=== PATIENT | male | born 1950 | race Caucasian/White ===

== ENCOUNTER → 2018-04-15 | Outpatient (CLI) | payer MEDICARE | END | disposition home or self-care (01) | LOC: ECHO 08:54 | DX: R06.02 Shortness of breath (principal); R07.9 Chest pain, unspecified; E66.9 Obesity, unspecified; I12.9 Hypertensive chronic kidney disease with stage 1 through stage 4 chronic kidney disease, or unspecified chronic kidney disease; E11.22 Type 2 diabetes mellitus with diabetic chronic kidney disease; N18.3 Chronic kidney disease, stage 3 (moderate); E78.00 Pure hypercholesterolemia, unspecified; E78.5 Hyperlipidemia, unspecified | CPT/HCPCS: 93306 ==

== ENCOUNTER 2019-09-20 02:40 | Emergency (ER) | payer MEDICARE ==
[~2019-09-20] VITALS: Ht 188 cm; Wt 207.7 kg
[~2019-09-20 02:40] MED LIST: ALLO100T PO; AMOX500C PO; ASCO100020 PO; ASPI325T8 PO; ATOR20TA58 PO; Amoxicillin/Potassium Clav PO; CHOL100017 PO; CINN500C2 PO; CLOP75TA PO; DOXY50CA PO; DOXY75TA PO; ERGO500027 PO; FAMO20TA5 PO; FERR159T3 PO; FERR325T14 PO; FEXO180T16 PO; FURO40TA4 PO; GLUC100018 PO; Hydrocodone/Acetaminophen PO; ICOS1CAP PO; ISOS30TA4 PO; LIDO700A21 TD; LISI-130 PO; LISI-334 PO; LUBI24CA7 PO; LUBI8CAP4 PO; MAGN400T22 PO; METF10007 PO; METO-269 PO; MV,M1TAB4 PO; OXYC1TAB22 PO; PANT40TA77 PO; POTA20TA12 PO; POTA99TA4 PO; REPA1TAB6 PO; SIME80TA PO; SULF1TAB24 PO; TIZA4TAB2 PO; TRAM50TA PO; [UNRECOGNIZED DRUG - CODE] PO; [UNRECOGNIZED DRUG - OTHER]
[2019-09-20] MEDS ORDERED: ONDANSETRON PF 4 MG/2 ML VIAL. IVP ONE (03:15)
[2019-09-20] MEDS ORDERED: MORPHINE SULFATE 4 MG/ML VIAL. IV ONE ×2 (03:15→04:45)
--- NOTE | 2019-09-20 03:39 | PHYS DOC ---
Past Medical History Past Medical History: CAD, Diabetes-Type II, GERD, High Cholesterol, Heart Disease, Hypertension, [place], Other Additional Past Medical Histor: CHRONIC BACK PAIN, constipation Past Surgical History: Cholecystectomy, Lumbar Laminectomy Additional Past Surgical Histo: cardiac stents 12/15, 4 back surgeries, 1 neck surgery Alcohol Use: None Drug Use: None Adult General Chief Complaint Chief Complaint: ABDOMINAL PAIN HPI HPI Patient is a 69 year old male with history of CAD, hypertension presents with left upper quadrant abdominal pain. Pain is intermittent and worse with palpation. Patient has had similar episodes in the past which previously been attributed to abdominal muscle strain. Patient has been treating with muscle relaxants without relief. Pain is worse with palpation and movement. Pain is rated as moderate. Patient also reports chronic back pain. No falls or injuries. No fevers chills or sweats. No nausea or vomiting. No other acute symptoms or complaints.[] Review of Systems Review of Systems Review symptoms as per history of present illness. All other review symptoms are negative. All other systems were reviewed and found to be within normal limits, except as documented in this note. Current Medications Current Medications Current Medications Medications (Trade) Dose Ordered Sig/Micah Start Time Stop Time Status Last Admin Dose Admin Morphine Sulfate (Morphine Sulfate) 4 mg 1X ONCE 09/20/19 04:45 09/20/19 04:46 DC 09/20/19 05:08 4 MG Ondansetron HCl (Zofran) 4 mg 1X ONCE 09/20/19 03:15 09/20/19 03:18 DC 09/20/19 03:24 4 MG Sodium Chloride 1,000 ml @ 1,000 mls/hr 1X ONCE 09/20/19 04:45 09/20/19 05:44 09/20/19 05:08 1,000 MLS/HR Allergies Allergies Allergies Coded Allergies Type Severity Reaction Last Updated Verified No Known Drug Allergies 06/11/16 No Physical Exam Physical Exam Constitutional: Well developed, well nourished, no acute distress. [] HENT: Normocephalic, atraumatic, bilateral external ears normal, nose normal. [] Eyes: PERRLA, EOMI, conjunctiva normal, no discharge. [] Neck: Normal range of motion. [] Cardiovascular:Heart rate regular rhythm, no murmur [] Lungs & Thorax: Bilateral breath sounds clear to auscultation [] Abdomen: Bowel sounds normal, soft, habitus limiting exam, focal area of tenderness left upper quadrant, no palpable hernia. [] Extremities: No tenderness or peripheral edema. [] Neurologic: Alert and oriented X 3, normal motor function, normal sensory f unction, no focal deficits noted. [] Psychologic: Affect normal, judgement normal, mood normal. [] Current Patient Data Vital Signs Vital Signs Date Time Temp Pulse Resp B/P (MAP) Pulse Ox O2 Delivery O2 Flow Rate FiO2 09/20/19 05:08 20 92 Room Air 09/20/19 02:44 99.2 85 185/82 (116) 99.2 Lab Values Laboratory Tests Test 09/20/19 02:55 09/20/19 04:45 White Blood Count 12.6 x10^3/uL (4.0-11.0) H Red Blood Count 4.45 x10^6/uL (4.30-5.70) Hemoglobin 13.8 g/dL (13.0-17.5) Hematocrit 42.6 % (39.0-53.0) Mean Corpuscular Volume 96 fL (79-100) Mean Corpuscular Hemoglobin 31 pg (25-35) Mean Corpuscular Hemoglobin Concent 32 g/dL (31-37) Red Cell Distribution Width 15.2 % (11.5-14.5) H Platelet Count 175 x10^3/uL (140-400) Neutrophils (%) (Auto) 79 % (31-73) H Lymphocytes (%) (Auto) 11 % (24-48) L Monocytes (%) (Auto) 9 % (0-9) Eosinophils (%) (Auto) 0 % (0-3) Basophils (%) (Auto) 0 % (0-3) Neutrophils # (Auto) 10.0 x10^3/uL (1.8-7.7) H Lymphocytes # (Auto) 1.4 x10^3/uL (1.0-4.8) Monocytes # (Auto) 1.1 x10^3/uL (0.0-1.1) Eosinophils # (Auto) 0.0 x10^3/uL (0.0-0.7) Basophils # (Auto) 0.0 x10^3/uL (0.0-0.2) Sodium Level 143 mmol/L (136-145) Potassium Level 3.9 mmol/L (3.5-5.1) Chloride Level 101 mmol/L (98-107) Carbon Dioxide Level 24 mmol/L (21-32) Anion Gap 18 (6-14) H Blood Urea Nitrogen 29 mg/dL (8-26) H Creatinine 1.7 mg/dL (0.7-1.3) H Estimated GFR (Cockcroft-Gault) 40.4 BUN/Creatinine Ratio 17 (6-20) Glucose Level 158 mg/dL (70-99) H Calcium Level 9.5 mg/dL (8.5-10.1) Total Bilirubin 0.6 mg/dL (0.2-1.0) Aspartate Amino Transferase (AST) 29 U/L (15-37) Alanine Aminotransferase (ALT) 43 U/L (16-63) Alkaline Phosphatase 78 U/L (46-116) Total Protein 7.7 g/dL (6.4-8.2) Albumin 3.7 g/dL (3.4-5.0) Albumin/Globulin Ratio 0.9 (1.0-1.7) L Lipase 70 U/L (73-393) L Lactic Acid Level 2.8 mmol/L (0.4-2.0) H Laboratory Tests 09/20/19 02:55 Laboratory Tests 09/20/19 02:55 EKG EKG [] Radiology/Procedures Radiology/Procedures [CT abdomen pelvis: No acute findings per radiology report] Course & Med Decision Making Course & Med Decision Making Pertinent Labs and Imaging studies reviewed. (See chart for details) [Left upper quadrant pain without acute findings on CT. Pain was improved. Patient instructed to follow-up with PCP for reevaluation and further management.] Dragon Disclaimer Dragon Disclaimer This electronic medical record was generated, in whole or in part, using a voice recognition dictation system. Departure Departure Impression: Primary Impression: Abdominal pain Additional Impression: Back pain Disposition: 01 HOME, SELF-CARE Condition: STABLE Referrals: Jessica WHITT MD (PCP) Patient Instructions: Abdominal Pain (Nonspecific), Back Pain, Adult, [id number] Additional Instructions: Please continue home medications and follow-up with your PCP for review of ER labs and imaging and further management of abdominal and back pain. Problem Qualifiers JA JACKSON DO Sep 20, 2019 03:39
[2019-09-20 03:40] LABS: BASO % 0 % (0-3); EOS % 0 % (0-3); HEMATOCRIT 42.6 % (39.0-53.0); HEMOGLOBIN 13.8 g/dL (13.0-17.5); LYMPH # 1.4 x10^3/uL (1.0-4.8); LYMPH % 11 % (24-48); MEAN CORPUSCULAR HEMOGLOBIN 31 pg (25-35); MEAN CORPUSCULAR HGB CONC 32 g/dL (31-37); MEAN CORPUSCULAR VOLUME 96 fL (79-100); MONO # 1.1 x10^3/uL (0.0-1.1); MONO % 9 % (0-9); NEUT % 79 % (31-73); PLATELET COUNT 175 x10^3/uL (140-400); RED BLOOD COUNT 4.45 x10^6/uL (4.30-5.70); RED CELL DISTRIBUTION WIDTH 15.2 % (11.5-14.5); WHITE BLOOD COUNT 12.6 x10^3/uL (4.0-11.0)
[2019-09-20 03:45] LABS: CALCIUM 9.5 mg/dL (8.5-10.1); CREATININE 1.7 mg/dL (0.7-1.3); GFR 40.4; POTASSIUM 3.9 mmol/L (3.5-5.1)
[2019-09-20 03:51] LABS: ALBUMIN 3.7 g/dL (3.4-5.0); ALBUMIN/GLOBULIN RATIO 0.9 (1.0-1.7); TOTAL BILIRUBIN 0.6 mg/dL (0.2-1.0); TOTAL PROTEIN 7.7 g/dL (6.4-8.2)
[2019-09-20] MEDS ORDERED: IV NORMAL SALINE 1000ML BAG 1,000 ML IV ONE (04:45)
--- NOTE | 2019-09-20 05:08 | RAD ---
PQRS Compliance statement: One or more of the following individualized dose reduction techniques were utilized for this examination: 1. Automated exposure control. 2. Adjustment of the mA and/or kV according to patient size. 3. Use of iterative reconstruction technique. Indication: Left upper quadrant abdominal pain. TECHNIQUE: CT abdomen and pelvis without IV contrast with multiplanar reformats. COMPARISON: None FINDINGS: Limited evaluation of solid abdominal and pelvic organs due to lack of IV contrast. Heart is normal in size. No pericardial or pleural effusion. Clear lung bases. Hepatic steatosis. Spleen is unenlarged. Status post cholecystectomy. Noncontrast appearance of the pancreas and adrenals within normal limits. No nephrolithiasis or hydronephrosis. No enlarged retroperitoneal or pelvic adenopathy. No free pelvic fluid or ascites. The prostate and seminal vesicles show no large mass. No bowel obstruction. Urinary bladder demonstrates no radiopaque stone. No pneumoperitoneum. Focal small bowel containing right parasagittal abdominal wall hernia with defect measuring 5.2 cm. No suspicious bony lesion. IMPRESSION: Limited evaluation of solid abdominal and pelvic organs due to lack of IV contrast. Hepatic steatosis. No nephrolithiasis or hydronephrosis. No bowel obstruction. Electronically signed by: Davin Arvizu DO (09/20/2019 5:05 AM) [facility]
[2019-09-20 05:36] VITALS: BP 137/90
== END 2019-09-20 06:00 | disposition home or self-care (01) ==
LOC: ER 02:40
DX: R10.12 Left upper quadrant pain (principal); G89.29 Other chronic pain; M54.9 Dorsalgia, unspecified; K21.9 Gastro-esophageal reflux disease without esophagitis; I11.9 Hypertensive heart disease without heart failure; E11.9 Type 2 diabetes mellitus without complications; E78.00 Pure hypercholesterolemia, unspecified; I25.10 Atherosclerotic heart disease of native coronary artery without angina pectoris; I25.2 Old myocardial infarction; Z90.49 Acquired absence of other specified parts of digestive tract; Z98.890 Other specified postprocedural states; Z95.5 Presence of coronary angioplasty implant and graft
CPT/HCPCS: 36415; 74176; 80053; 83605; 83690; 85025; 96374; 96375; 96376; 99285; J2270; J2405; J7030

== ENCOUNTER 2020-05-09 16:26 | Inpatient (IN) | payer MEDICARE ==
[~2020-05-09] VITALS: Ht 185.4 cm; Wt 183.1 kg
[2020-05-09 10:35] VITALS: BP 151/55
[~2020-05-09 16:26] MED LIST changes: +ACET325T9 PO; +AMOX1TAB58 PO; +ASPI-886 PO; +DOCU-153 PO; +LACT1CAP19 PO
[2020-05-09 16:58] LABS: BASO % 0 % (0-3); EOS % 0 % (0-3); HEMATOCRIT 37.3 % (39.0-53.0); HEMOGLOBIN 12.8 g/dL (13.0-17.5); LYMPH # 0.7 x10^3/uL (1.0-4.8); LYMPH % 7 % (24-48); MEAN CORPUSCULAR HEMOGLOBIN 32 pg (25-35); MEAN CORPUSCULAR HGB CONC 34 g/dL (31-37); MEAN CORPUSCULAR VOLUME 94 fL (79-100); MONO # 1.1 x10^3/uL (0.0-1.1); MONO % 10 % (0-9); NEUT # 8.6 x10^3/uL (1.8-7.7); NEUT % 82 % (31-73); PLATELET COUNT 143 x10^3/uL (140-400); RED BLOOD COUNT 3.97 x10^6/uL (4.30-5.70); RED CELL DISTRIBUTION WIDTH 15.6 % (11.5-14.5); WHITE BLOOD COUNT 10.4 x10^3/uL (4.0-11.0)
[2020-05-09 17:06] LABS: BILIRUBIN,URINE NEGATIVE (NEG); CLARITY,URINE CLOUDY; COLOR,URINE YELLOW; NITRITE,URINE NEGATIVE (NEG); PH,URINE 5.5 (<5.0-8.0); PROTEIN,URINE NEGATIVE (NEG-TRACE); UROBILINOGEN,URINE 0.2 mg/dL (0.2 mg/dL)
[2020-05-09 17:09] LABS: BACTERIA,URINE MANY /HPF (0-FEW); WBC,URINE >40 /HPF (0-4)
[2020-05-09 17:13] LABS: CALCIUM 8.7 mg/dL (8.5-10.1); CREATININE 2.3 mg/dL (0.7-1.3); GFR 28.5; POTASSIUM 4.2 mmol/L (3.5-5.1)
[2020-05-09 17:19] LABS: ALBUMIN 3.1 g/dL (3.4-5.0); ALBUMIN/GLOBULIN RATIO 0.9 (1.0-1.7); MAGNESIUM 1.7 mg/dL (1.8-2.4); TOTAL BILIRUBIN 0.5 mg/dL (0.2-1.0); TOTAL PROTEIN 6.7 g/dL (6.4-8.2)
--- NOTE | 2020-05-09 17:20 | PHYS DOC ---
Past Medical History Past Medical History: CAD, Diabetes-Type II, GERD, High Cholesterol, Heart Disease, Hypertension, [place], Other Additional Past Medical Histor: CHRONIC BACK PAIN, constipation Past Surgical History: Cholecystectomy, Lumbar Laminectomy Additional Past Surgical Histo: cardiac stents 12/15, 4 back surgeries, 1 neck surgery Smoking Status: Never Smoker Alcohol Use: None Drug Use: None General Adult EDM: Chief Complaint: WEAKNESS/GENERALIZED HPI: HPI: Patient is a 69 year old male who presents with generalized weakness for 2 days. Patient reports that he is being treated for urinary tract infection but cannot remember the antibiotic that he is taking. Patient reports that today he was trying to get out of bed and ambulate with his walker when he fell due to his weakness. He denies hitting his head or any loss of consciousness. Patient is reporting dysuria and frequency but reports that he does have urinary frequency due to his Lasix. Patient is also reporting a cough, increasing shortness of breath worse with exertion, nausea and vomiting, fever. Patient denies any abdominal pain, dizziness, focal deficit, or chest pain. He reports that he has chronic diarrhea. Review of Systems: Review of Systems: Constitutional: See HPI [] Respiratory: See HPI [] Cardiovascular: Denies chest pain. [] GI: See HPI [] : See HPI [] Musculoskeletal: Denies back pain or joint pain. [] Integument: Denies rash. [] Neurologic: See HPI. [] Psychiatric: Denies depression or anxiety. [] Heart Score: Risk Factors: Risk Factors: DM, Current or recent (<one month) smoker, HTN, HLP, family history of CAD, obesity. Risk Scores: Score 0 - 3: 2.5% MACE over next 6 weeks - Discharge Home Score 4 - 6: 20.3% MACE over next 6 weeks - Admit for Clinical Observation Score 7 - 10: 72.7% MACE over next 6 weeks - Early Invasive Strategies Allergies: Allergies: Allergies Coded Allergies Type Severity Reaction Last Updated Verified No Known Drug Allergies 06/11/16 No Physical Exam: PE: Constitutional: Well developed, well nourished, no acute distress, non-toxic appearance, obese. [] HENT: Normocephalic, atraumatic, bilateral external ears normal, oropharynx moist, nose normal. [] Eyes: PERRLA, EOMI, conjunctiva normal, no discharge. [] Neck: Normal range of motion, no stridor. [] Cardiovascular:Heart rate regular rhythm, no murmur [] Lungs & Thorax: Bilateral breath sounds clear to auscultation [] Abdomen: Bowel sounds normal, soft, no tenderness, no masses, no pulsatile masses. [] Skin: Warm, dry; patient does have excoriation noted to his groin [] Back: No tenderness; no cervical spinal tenderness. [] Extremities: No tenderness, no cyanosis, no clubbing, ROM intact; 2+ edema noted to bilateral lower extremities [] Neurologic: Alert and oriented X 3, no focal deficits noted. [] Psychologic: Affect normal, judgement normal, mood normal. [] Current Patient Data: Labs: Laboratory Tests Test 05/09/20 16:35 05/09/20 16:40 White Blood Count 10.4 x10^3/uL (4.0-11.0) Red Blood Count 3.97 x10^6/uL (4.30-5.70) L Hemoglobin 12.8 g/dL (13.0-17.5) L Hematocrit 37.3 % (39.0-53.0) L Mean Corpuscular Volume 94 fL (79-100) Mean Corpuscular Hemoglobin 32 pg (25-35) Mean Corpuscular Hemoglobin Concent 34 g/dL (31-37) Red Cell Distribution Width 15.6 % (11.5-14.5) H Platelet Count 143 x10^3/uL (140-400) Neutrophils (%) (Auto) 82 % (31-73) H Lymphocytes (%) (Auto) 7 % (24-48) L Monocytes (%) (Auto) 10 % (0-9) H Eosinophils (%) (Auto) 0 % (0-3) Basophils (%) (Auto) 0 % (0-3) Neutrophils # (Auto) 8.6 x10^3/uL (1.8-7.7) H Lymphocytes # (Auto) 0.7 x10^3/uL (1.0-4.8) L Monocytes # (Auto) 1.1 x10^3/uL (0.0-1.1) Eosinophils # (Auto) 0.0 x10^3/uL (0.0-0.7) Basophils # (Auto) 0.0 x10^3/uL (0.0-0.2) Urine Collection Type Unknown Urine Color Yellow Urine Clarity Cloudy Urine pH 5.5 (<5.0-8.0) Urine Specific Prewitt 1.010 (1.000-1.030) Urine Protein Negative mg/dL (NEG-TRACE) Urine Glucose (UA) Negative mg/dL (NEG) Urine Ketones (Stick) Negative mg/dL (NEG) Urine Blood Moderate (NEG) Urine Nitrite Negative (NEG) Urine Bilirubin Negative (NEG) Urine Urobilinogen Dipstick 0.2 mg/dL (0.2 mg/dL) Urine Leukocyte Esterase Large (NEG) Urine RBC 1-2 /HPF (0-2) Urine WBC >40 /HPF (0-4) Urine Bacteria Many /HPF (0-FEW) Laboratory Tests 05/09/20 16:35 Vital Signs: Vital Signs Date Time Temp Pulse Resp B/P (MAP) Pulse Ox O2 Delivery O2 Flow Rate FiO2 05/09/20 16:26 100.2 84 21 136/67 (90) 96 Room Air 100.2 EKG: EKG: [] Radiology/Procedures: Radiology/Procedures: PROCEDURE: CHEST AP ONLY Examination: CHEST AP ONLY History: Reason: cough, soa / Spl. Instructions: / History: Comparison: 02/20/2020. Findings: AP portable upright frontal view of the chest was obtained. Right costophrenic angle is not fully included. The cardiomediastinal silhouette is normal. Lungs are clear. There is no pneumothorax. No significant pleural effusion is appreciated. No acute bone abnormality. IMPRESSION: No acute cardiopulmonary process.[] Course & Med Decision Making: Course & Med Decision Making Pertinent Labs and Imaging studies reviewed. (See chart for details) Patient is a 69-year-old male coming in for multiple complaints. Patient reports that he feels generally weak, has dysuria and urinary frequency, cough, fever, shortness of air with exertion. Work-up will include UA, CBC, CMP, magnesium, chest x-ray, lactic acid, BNP. 1825-spoke with Dr. Baldwin who is the admitting physician, and care was as sumed following discussion of patient. Will admit patient for SONIYA, UTI, fever Patient's vital signs stable. Patient remains appears nontoxic, respirations even and unlabored. Patient will be admitted to the med/tele floor. Patient's case and plan of care also discussed with Dr. Walker [] Arsh Disclaimer: Arsh Disclaimer: This electronic medical record was generated, in whole or in part, using a voice recognition dictation system. Departure Departure Impression: Primary Impression: Urinary tract infection Qualified Codes: N39.0 - Urinary tract infection, site not specified Additional Impression: SONIYA (acute kidney injury) Disposition: ADMITTED INPATIENT Admitting Physician: MARCIE ([facility]) Condition: STABLE Referrals: Jessica WHITT MD (PCP) Justicifation of Admission Dx: Justifications for Admission: Justification of Admission Dx: Yes JODY FLORES RESOURCE DEVELOPMENT DIRECTOR May 09, 2020 17:20
[2020-05-09] MEDS ORDERED: LIDOCAINE (700MG/PATCH) PATCH. ONE (17:58)
[2020-05-09] MEDS: LIDOCAINE (700MG/PATCH) PATCH. TD SCH (18:03)
[2020-05-09] MEDS ORDERED: ACETAMINOPHEN 500 MG TABLET PO ONE (18:15)
[2020-05-09] MEDS ORDERED: cefTRIAXone IV Push 1 GM VIAL. IVP ONE (18:15)
[2020-05-09] MEDS ORDERED: HYDROcodone/APAP 5/325MG 1 TAB TABLET PO ONE (21:00)
[2020-05-09 23:14] VITALS: BP 151/55
[2020-05-09] MEDS ORDERED: POTA20TA4 PO (23:38)
[2020-05-09] MEDS ORDERED: TAMS0.4C97 PO (23:38)
[2020-05-09] MEDS ORDERED: POTA99TA3 PO (23:38)
[2020-05-09] MEDS ORDERED: LINZESS145 MCG PO (23:38)
[2020-05-09] MEDS ORDERED: FERR-36 PO (23:38)
[2020-05-09] MEDS ORDERED: FLUT16SP NS (23:38)
[2020-05-09] MEDS ORDERED: LISI-130 PO (23:38)
[2020-05-09] MEDS ORDERED: MULT-138 PO (23:38)
[2020-05-09] MEDS ORDERED: ASCO500C PO (23:38)
[2020-05-09] MEDS ORDERED: FEXO180T16 PO (23:38)
[2020-05-09] MEDS ORDERED: METF10007 PO (23:38)
[2020-05-09] MEDS ORDERED: ALLO300T PO (23:38)
[2020-05-10] MEDS: HYDROcodone/APAP 5/325MG 1 TAB TABLET PO PRN ×4 (00:34→13:42)
[2020-05-10 02:44] VITALS: BP 102/57
[2020-05-10 07:00] VITALS: BP 118/58
--- NOTE | 2020-05-10 08:46 | PDOC1 ---
History and Physical Date of Admission Date of Admission DATE: 05/10/20 TIME: 08:40 Identification/Chief Complaint Chief Complaint Weakness Source Source: Patient History of Present Illness History of Present Illness Mr Drake is a 69 yo M w/ PMHx CAD s/p stents, DM2, GERD, HLD, HTN, chronic back pain, constipation, and recent diagnosis of BPH who presents with generalized weakness for 2 days. Patient reports that he is being treated for urinary tract infection but when he and his reduce his medications they are actually finasteride and tamsulosin. Patient reports that he was trying to get out of bed and ambulate with his walker when he fell due to his weakness on 05/09/2020, he thinks his left SI joint is in some of the worst pain of his life. He denies hitting his head or any loss of consciousness. Patient is reporting dysuria and frequency but reports that he does have urinary frequency due to his Lasix. He also notes some right lower quadrant abdominal pain and has red inflamed pannus. Patient is also reporting a cough, increasing shortness of breath worse with exertion, nausea and vomiting, fever, but has been afebrile here and chest x-ray was clear. Patient denies any abdominal pain, dizziness, focal deficit, or chest pain. He reports that he has chronic diarrhea. He is unable to stand with me Labs significant for WBC 10.4 Hb 13.8 BUN 47 creatinine 2.3 UA positive for blood and leukocyte esterase lactate 2.6 mag 1.7 albumin 3.1. Admitted for further care Past Medical History Cardiovascular: CAD, HTN, PA, Hyperlipidemia, Other Pulmonary: Asthma, Other CENTRAL NERVOUS SYSTEM: Periperal neuropathy GI: GERD, Irritable bowel disease Heme/Onc: Anemia NOS Hepatobiliary: No pertinent hx Psych: Addictions Musculoskeletal: low back pain, Osteoarthritis, Other Rheumatologic: No pertinent hx Infectious disease: No pertinent hx Renal/: UTI Endocrine: Diabetes Past Surgical History Past Surgical History: Cholecystectomy, Tonsillectomy, Other Family History Family History: Coronary Artery Disease, High Cholestrol Social History Smoke: No ALCOHOL: none Drugs: None Current Problem List Problem List Problems Medical Problems: (1) SONIYA (acute kidney injury) Status: Acute (2) Urinary tract infection Status: Acute Current Medications Current Medications Current Medications Lidocaine (Lidoderm) 1 patch DAILY TD Last administered on 05/09/20at 18:03; Start 05/10/20 at 09:00 Lidocaine (Lidoderm) 1 patch STK-MED ONCE .ROUTE ; Start 05/09/20 at 17:58; Stop 05/09/20 at 17:58; Status DC Acetaminophen (Tylenol) 1,000 mg 1X ONCE PO Last administered on 05/09/20at 18:28; Start 05/09/20 at 18:15; Stop 05/09/20 at 18:21; Status DC Ceftriaxone Sodium (Rocephin) 1 gm 1X ONCE IVP Last administered on 05/09/20at 18:28; Start 05/09/20 at 18:15; Stop 05/09/20 at 18:21; Status DC Acetaminophen/ Hydrocodone Bitart (Lortab 5/325) 1 tab 1X ONCE PO Last administered on 05/09/20at 21:00; Start 05/09/20 at 21:00; Stop 05/09/20 at 21:04; Status DC Acetaminophen/ Hydrocodone Bitart (Lortab 5/325) 1 tab PRN Q4HRS PRN PO PAIN Last administered on 05/10/20at 04:19; Start 05/10/20 at 00:15 Active Scripts Active Aspirin Ec (Aspirin) 81 Mg Tablet.dr 1 Tab PO DAILY Reported Flomax (Tamsulosin Hcl) 0.4 Mg Cap.er.24h 1 Cap PO HS Fluticasone Propionate Nasal [place] (Fluticasone Propionate) 16 Gm [place].susp 2 [place] NS DAILY Klor-Con M20 (Potassium Chloride) 20 Meq Tab.er.prt 20 Meq PO HS Linzess (Linaclotide) 145 Mcg Capsule 145 Mcg PO 3X/WEEK Fexofenadine Hcl 180 Mg Tablet 1 Tab PO DAILY Potassium Gluconate 99 Mg Tablet 99 Mg PO DAILY Vitamin C (Ascorbic Acid) 500 Mg Capsule.er 1,000 Mg PO DAILY One Daily For Men Tablet (Multivits-Minerals/Fa/Lycopene) 1 Each Tablet 1 Tab PO DAILY 30 Days Iron (Ferrous Sulfate) 325 Mg Tablet 65 Mg PO DAILY Metformin Hcl 1,000 Mg Tablet 1,000 Mg PO BIDWMEALS Allopurinol 300 Mg Tablet 1 Tab PO DAILY Lisinopril 40 Mg Tablet 1 Tab PO BID Vitamin D2 (Ergocalciferol (Vitamin D2)) 50,000 Unit Capsule 50,000 Unit PO WEEKLY Dose given on the 28th Take on Pantoprazole Sodium (Pantoprazole Sodium) 40 Mg Tablet.dr 1 Tab PO DAILY Gave this morning take tomorrow morning Tizanidine Hcl 4 Mg Tablet 1 Tab PO QHS Gave dose last night Take tonight before bedtime Vascepa (Icosapent Ethyl) 1 Gm Capsule 1 Gm PO Not given on this admission Take as previoulsy instructed Atorvastatin Calcium 20 Mg Tablet 1 Tab PO DAILY Gave last night Take tonight Clopidogrel (Clopidogrel Bisulfate) 75 Mg Tablet 1 Tab PO DAILY Gave this morning take tomorrow morning Isosorbide Mononitrate Er (Isosorbide Mononitrate) 30 Mg Tab.er.24h 60 Mg PO DAILY Gave this morning take tomorrow morning Furosemide 40 Mg Tablet 1 Tab PO DAILY Gave this morning take tomorrow morning Repaglinide 1 Mg Tablet 1 Mg PO Not given on this admission Continue as previously instructed Toprol Xl (Metoprolol Succinate) 50 Mg Tab.er.24h 1 Tab PO DAILY Gave this morning take tomorrow morning Allergies Allergies: Coded Allergies: No Known Drug Allergies (Unverified , 06/11/16) ROS General: YES: Fatigue, Malaise; No: Chills, Night Sweats, Appetite, Other PSYCHOLOGICAL ROS: No: Anxiety, Behavioral Disorder, Concentration difficultie, Decreased libido, Depression, Disorientation, Hallucinations, Hostility, Irritablity, Memory difficulties, Mood Swings, Obsessive thoughts, Physical abuse, Sexual abuse, Sleep disturbances, Suicidal ideation, Other Eyes: No Blurry vision, No Decreased vision, No Double vision, No Dry eyes, No Excessive tearing, No Eye Pain, No Itchy Eyes, No Loss of vision, No Photophobia, No Scotomata, No Uses contacts, No Uses glasses, No Other HEENT: No: Heacaches, Visual Changes, Hearing change, Nasal congestion, Nasal discharge, Oral lesions, Sinus pain, Sore Throat, Epistaxis, Sneezing, Snoring, Tinnitus, Vertigo, Vocal changes, Other ALLERGY AND IMMUNOLOGY: No: Hives, Insect Bite Sensitivity, Itchy/Watery Eyes, Nasal Congestion, Post Nasal Drip, Seasonal Allergies, Other Hematological and Lymphatic: No: Bleeding Problems, Blood Clots, Blood Transfusions, Brusing, Night Sweats, Pallor, Swollen Lymph Nodes, Other ENDOCRINE: No: Breast Changes, Galactorrhea, Hair Pattern Changes, Hot Flashes, Malaise/lethargy, Mood Swings, Palpitations, Polydipsia/polyuria, Skin Changes, Temperature Intolerance, Unexpected Weight Changes, Other Breast: No New/Changing Breast Lumps, No Nipple changes, No Nipple discharge, No Other Respiratory: YES: Shortness of breath; No: Cough, Hemoptysis, Orthopnea, Pleuritic Pain, SOB with excertion, Sputum Changes, Stridor, Tachypnea, Wheezing, Other Cardiovascular: No Chest Pain, No Palpitations, No Orthopnea, No Paroxysmal Noc. Dyspnea, No Edema, No Lt Headedness, No Other Gastrointestinal: Yes Nausea, Yes Abdominal Pain; No Vomiting, No Diarrhea, No Constipation, No Melena, No Hematochezia, No Other Genitourinary: YES Dysuria, YES Frequency, YES Incontinence, YES Retention, YES Urgency; No Hematuria, No Discharge, No Pain, No Flank Pain, No Other, No , No , No , No , No , No , No Musculoskeletal: Yes Gait Disturbance, Yes Joint Pain, Yes Muscle Pain, Yes Muscular Weakness; No Joint Stiffness, No Joint Swelling, No Pain In:, No Swelling In:, No Other Neurological: Yes Gait Disturbance; No Behavorial Changes, No Bowel/Bladder ControlChng, No Confusion, No Dizziness, No Headaches, No Impaired Coord/balance, No Memory Loss, No Numbness/Tingling, No Seizures, No Speech Problems, No Tremors, No Visual Changes, No Weakness, No Other Skin: Yes Rash; No Dry Skin, No Eczema, No Hair Changes, No Lumps, No Mole Changes, No Mottling, No Nail Changes, No Pruritus, No Skin Lesion Changes, No Other, No Acne Physical Exam General: Alert, Oriented X3, Cooperative, moderate distress HEENT: Atraumatic, PERRLA, EOMI, Mucous membr. moist/pink Lungs: Clear to auscultation, Normal air movement Heart: S1S2, RRR, no thrills, no rubs, no gallops, no murmurs Abdomen: Normal bowel sounds, Soft, No tenderness, No hepatosplenomegaly, No masses Rectal Exam: not examined Extremities: No clubbing, No cyanosis, No edema, Normal pulses, No tendernes s/swelling Skin: Other (Panniculitis) Neuro: Normal speech, Strength at 5/5 X4 ext, Normal tone, Sensation intact, Cranial nerves 3-12 NL, Reflexes 2+ Psych/Mental Status: Mental status NL, Mood NL Vitals Vitals Vital Signs Date Time Temp Pulse Resp B/P (MAP) Pulse Ox O2 Delivery O2 Flow Rate FiO2 05/10/20 07:00 98.6 80 22 118/58 (78) 96 Room Air 98.6 Labs Labs Laboratory Tests Test 05/09/20 16:35 05/09/20 16:40 05/09/20 21:25 White Blood Count 10.4 x10^3/uL (4.0-11.0) Red Blood Count 3.97 x10^6/uL (4.30-5.70) Hemoglobin 12.8 g/dL (13.0-17.5) Hematocrit 37.3 % (39.0-53.0) Mean Corpuscular Volume 94 fL (79-100) Mean Corpuscular Hemoglobin 32 pg (25-35) Mean Corpuscular Hemoglobin Concent 34 g/dL (31-37) Red Cell Distribution Width 15.6 % (11.5-14.5) Platelet Count 143 x10^3/uL (140-400) Neutrophils (%) (Auto) 82 % (31-73) Lymphocytes (%) (Auto) 7 % (24-48) Monocytes (%) (Auto) 10 % (0-9) Eosinophils (%) (Auto) 0 % (0-3) Basophils (%) (Auto) 0 % (0-3) Neutrophils # (Auto) 8.6 x10^3/uL (1.8-7.7) Lymphocytes # (Auto) 0.7 x10^3/uL (1.0-4.8) Monocytes # (Auto) 1.1 x10^3/uL (0.0-1.1) Eosinophils # (Auto) 0.0 x10^3/uL (0.0-0.7) Basophils # (Auto) 0.0 x10^3/uL (0.0-0.2) Sodium Level 138 mmol/L (136-145) Potassium Level 4.2 mmol/L (3.5-5.1) Chloride Level 104 mmol/L (98-107) Carbon Dioxide Level 21 mmol/L (21-32) Anion Gap 13 (6-14) Blood Urea Nitrogen 47 mg/dL (8-26) Creatinine 2.3 mg/dL (0.7-1.3) Estimated GFR (Cockcroft-Gault) 28.5 BUN/Creatinine Ratio 20 (6-20) Glucose Level 99 mg/dL (70-99) Lactic Acid Level 2.6 mmol/L (0.4-2.0) 1.9 mmol/L (0.4-2.0) Calcium Level 8.7 mg/dL (8.5-10.1) Magnesium Level 1.7 mg/dL (1.8-2.4) Total Bilirubin 0.5 mg/dL (0.2-1.0) Aspartate Amino Transf (AST/SGOT) 24 U/L (15-37) Alanine Aminotransferase (ALT/SGPT) 43 U/L (16-63) Alkaline Phosphatase 64 U/L (46-116) YP-Oiq-V-Type Natriuretic Peptide 397 pg/mL (0-124) Total Protein 6.7 g/dL (6.4-8.2) Albumin 3.1 g/dL (3.4-5.0) Albumin/Globulin Ratio 0.9 (1.0-1.7) Urine Collection Type Unknown Urine Color Yellow Urine Clarity Cloudy Urine pH 5.5 (<5.0-8.0) Urine Specific [place] 1.010 (1.000-1.030) Urine Protein Negative mg/dL (NEG-TRACE) Urine Glucose (UA) Negative mg/dL (NEG) Urine Ketones (Stick) Negative mg/dL (NEG) Urine Blood Moderate (NEG) Urine Nitrite Negative (NEG) Urine Bilirubin Negative (NEG) Urine Urobilinogen Dipstick 0.2 mg/dL (0.2 mg/dL) Urine Leukocyte Esterase Large (NEG) Urine RBC 1-2 /HPF (0-2) Urine WBC >40 /HPF (0-4) Urine Bacteria Many /HPF (0-FEW) Laboratory Tests Test 05/09/20 16:35 05/09/20 16:40 05/09/20 21:25 White Blood Count 10.4 x10^3/uL (4.0-11.0) Red Blood Count 3.97 x10^6/uL (4.30-5.70) Hemoglobin 12.8 g/dL (13.0-17.5) Hematocrit 37.3 % (39.0-53.0) Mean Corpuscular Volume 94 fL (79-100) Mean Corpuscular Hemoglobin 32 pg (25-35) Mean Corpuscular Hemoglobin Concent 34 g/dL (31-37) Red Cell Distribution Width 15.6 % (11.5-14.5) Platelet Count 143 x10^3/uL (140-400) Neutrophils (%) (Auto) 82 % (31-73) Lymphocytes (%) (Auto) 7 % (24-48) Monocytes (%) (Auto) 10 % (0-9) Eosinophils (%) (Auto) 0 % (0-3) Basophils (%) (Auto) 0 % (0-3) Neutrophils # (Auto) 8.6 x10^3/uL (1.8-7.7) Lymphocytes # (Auto) 0.7 x10^3/uL (1.0-4.8) Monocytes # (Auto) 1.1 x10^3/uL (0.0-1.1) Eosinophils # (Auto) 0.0 x10^3/uL (0.0-0.7) Basophils # (Auto) 0.0 x10^3/uL (0.0-0.2) Sodium Level 138 mmol/L (136-145) Potassium Level 4.2 mmol/L (3.5-5.1) Chloride Level 104 mmol/L (98-107) Carbon Dioxide Level 21 mmol/L (21-32) Anion Gap 13 (6-14) Blood Urea Nitrogen 47 mg/dL (8-26) Creatinine 2.3 mg/dL (0.7-1.3) Estimated GFR (Cockcroft-Gault) 28.5 BUN/Creatinine Ratio 20 (6-20) Glucose Level 99 mg/dL (70-99) Lactic Acid Level 2.6 mmol/L (0.4-2.0) 1.9 mmol/L (0.4-2.0) Calcium Level 8.7 mg/dL (8.5-10.1) Magnesium Level 1.7 mg/dL (1.8-2.4) Total Bilirubin 0.5 mg/dL (0.2-1.0) Aspartate Amino Transf (AST/SGOT) 24 U/L (15-37) Alanine Aminotransferase (ALT/SGPT) 43 U/L (16-63) Alkaline Phosphatase 64 U/L (46-116) PZ-Ujn-W-Type Natriuretic Peptide 397 pg/mL (0-124) Total Protein 6.7 g/dL (6.4-8.2) Albumin 3.1 g/dL (3.4-5.0) Albumin/Globulin Ratio 0.9 (1.0-1.7) Urine Collection Type Unknown Urine Color Yellow Urine Clarity Cloudy Urine pH 5.5 (<5.0-8.0) Urine Specific [place] 1.010 (1.000-1.030) Urine Protein Negative mg/dL (NEG-TRACE) Urine Glucose (UA) Negative mg/dL (NEG) Urine Ketones (Stick) Negative mg/dL (NEG) Urine Blood Moderate (NEG) Urine Nitrite Negative (NEG) Urine Bilirubin Negative (NEG) Urine Urobilinogen Dipstick 0.2 mg/dL (0.2 mg/dL) Urine Leukocyte Esterase Large (NEG) Urine RBC 1-2 /HPF (0-2) Urine WBC >40 /HPF (0-4) Urine Bacteria Many /HPF (0-FEW) Images Images CXR: AP portable upright frontal view of the chest was obtained. Right costophrenic angle is not fully included. The cardiomediastinal silhouette is normal. Lungs are clear. There is no pneumothorax. No significant pleural effusion is appre ciated. No acute bone abnormality. IMPRESSION: No acute cardiopulmonary process. VTE Prophylaxis Ordered VTE Prophylaxis Devices: Yes VTE Pharmacological Prophylaxi: Yes Assessment/Plan Assessment/Plan A/P: Fall - unable to walk, has intractable left lower back pain, h/o SI joint injection. Will consult PT and PMR physician Dysuria - UTI in male, has been on cipro in the past month, recently seen by Dr. Lamas, started on BPH meds. Will cont rocephin, f/u culture results BPH - cont meds Panniculitis - with prior balanitis, will use topical nystatin powder. Cont rocephin CAD - past stent, clinically stable HTN - controlled Morbid obesity with SUSANA: CPAP at home DM2 - sliding scale CKD3 - Stable from prior visits FEN - Cardiac PPX - heparin FULL CODE Dispo - inpatient Justicifation of Admission Dx: Justifications for Admission: Justification of Admission Dx: Yes TIMA LEDESMA MD May 10, 2020 08:46
[2020-05-10] MEDS ORDERED: DEXTROSE 50% 25 GM / 50ML DISP.SYRIN. IV PRN (09:00)
[2020-05-10 09:35] LABS: CALCIUM 8.9 mg/dL (8.5-10.1); CREATININE 2.1 mg/dL (0.7-1.3); GFR 31.7; MAGNESIUM 2.1 mg/dL (1.8-2.4); POTASSIUM 4.5 mmol/L (3.5-5.1)
[2020-05-10] MEDS: CETIRIZINE HCL 10 MG TABLET. PO SCH (10:41)
[2020-05-10] MEDS: ALLOPURINOL 100 MG TABLET. PO SCH (10:41)
[2020-05-10] MEDS: PANTOPRAZOLE 40 MG TABLET.DR. PO SCH (10:42)
[2020-05-10] MEDS: METOPROLOL SUCC 24HR ER 50 MG TAB.ER.24H. PO SCH (10:42)
[2020-05-10] MEDS: ISOSORBIDE MONONITRATE ER 30 MG TAB.ER.24H PO SCH (10:42)
[2020-05-10] MEDS: CLOPIDOGREL BISULFATE 75 MG TABLET PO SCH (10:42)
[2020-05-10] MEDS: ATORVASTATIN CALCIUM 20 MG TABLET PO SCH (10:42)
[2020-05-10] MEDS: MULTIVITAMIN with MINERAL TABLET. PO SCH (10:42)
[2020-05-10] MEDS: ASPIRIN ENTERIC COATED 81 MG TABLET.DR. PO SCH (10:42)
[2020-05-10] MEDS: FERROUS SULFATE 325 MG TABLET. PO SCH (10:42)
[2020-05-10 11:00] VITALS: BP 150/68
[2020-05-10] MEDS: INSULIN LISPRO 300 UNITS/3 ML VIAL. SQ SCH ×3 (12:29→20:43)
--- NOTE | 2020-05-10 12:35 | PDOC2 ---
LUNA MACIAS SOW MANAGER 05/10/20 1235: CARDIAC CONSULT DATE OF CONSULT Date of Consult DATE: 05/10/20 TIME: 12:23 REASON FOR CONSULT Reason for Consult: Lasix dosing REFERRING PHYSICIAN Referring Physician: Dr. Patten SOURCE Source: Chart review, Patient HISTORY OF PRESENT ILLNESS HISTORY OF PRESENT ILLNESS This is a 69 yo male who presented secondary to weakness/fall and dysuria. Patient reports he was started on antibiotic therapy about 2 weeks ago for UTI. Repots symptoms never really improved. Over the last 24 hrs, became significantly weakness. Slid off the edge of the bed this morning and did not have enough strength to get up. Fire department was called to assist. Patient denies any chest pain, palpitations, dizziness, diaphoresis, or SOA. PAST MEDICAL HISTORY Past Medical History Cardiovascular: CAD, HTN, PR, Hyperlipidemia, Other (PVD) Pulmonary: Asthma, Other (SUSANA with bipap) CENTRAL NERVOUS SYSTEM: Periperal neuropathy GI: GERD, Irritable bowel disease, Hernia Heme/Onc: Anemia NOS Hepatobiliary: No pertinent hx Musculoskeletal: low back pain, Osteoarthritis, Other (morbid obesity) Rheumatologic: No pertinent hx Infectious disease: No pertinent hx ENT: Allergic Rhinitis Renal/: UTI Endocrine: Diabetes (2) Dermatology: No pertinent hx PAST SURGICAL HISTORY Past Surgical History [facility] with stent 2013, back surgery, cholecystectomy, Hernia repair FAMILY HISTORY Family History: Coronary Artery Disease (father ) SOCIAL HISTORY Social History Smoke: No ALCOHOL: none Drugs: None Lives: with Famil CURRENT MEDICATIONS CURRENT MEDICATIONS Current Medications Medications (Trade) Dose Ordered Sig/Micah Route PRN Reason Start Time Stop Time Status Last Admin Dose Admin Lidocaine (Lidoderm) 1 patch DAILY TD 05/10/20 09:00 05/09/20 18:03 Acetaminophen (Tylenol) 1,000 mg 1X ONCE PO 05/09/20 18:15 05/09/20 18:21 DC 05/09/20 18:28 Ceftriaxone Sodium (Rocephin) 1 gm 1X ONCE IVP 05/09/20 18:15 05/09/20 18:21 DC 05/09/20 18:28 Acetaminophen/ Hydrocodone Bitart (Lortab 5/325) 1 tab 1X ONCE PO 05/09/20 21:00 05/09/20 21:04 DC 05/09/20 21:00 Acetaminophen/ Hydrocodone Bitart (Lortab 5/325) 1 tab PRN Q4HRS PRN PO PAIN 05/10/20 00:15 05/10/20 09:15 Allopurinol (Zyloprim) 100 mg DAILY PO 05/10/20 10:00 05/10/20 10:41 Aspirin (Ecotrin) 81 mg DAILY PO 05/10/20 09:30 05/10/20 10:42 Atorvastatin Calcium (Lipitor) 20 mg DAILY PO 05/10/20 10:00 05/10/20 10:42 Clopidogrel Bisulfate (Plavix) 75 mg DAILY PO 05/10/20 10:00 05/10/20 10:42 Ferrous Sulfate (Feosol) 325 mg DAILY PO 05/10/20 10:00 05/10/20 10:42 Isosorbide Mononitrate (Imdur) 60 mg DAILY PO 05/10/20 10:00 05/10/20 10:42 Pantoprazole Sodium (Protonix) 40 mg DAILY PO 05/10/20 10:00 05/10/20 10:42 Cetirizine HCl (ZyrTEC) 10 mg DAILY PO 05/10/20 10:00 05/10/20 10:41 Metoprolol Succinate (Toprol Xl) 50 mg DAILY PO 05/10/20 10:00 05/10/20 10:42 Multivitamins (Thera M Plus) 1 tab DAILY PO 05/10/20 10:00 05/10/20 10:42 ALLERGIES ALLERGIES: Coded Allergies: No Known Drug Allergies (Unverified , 06/11/16) ROS Review of System 14 point ROS conducted with pertinent positives noted above in HPi PHYSICAL EXAM PHYSICAL EXAM General: Alert, Oriented X3, Cooperative, No acute distress HEENT: Atraumatic, Mucous membr. moist/pink Lungs: Clear to auscultation, Normal air movement Heart: Regular rate (SR), Normal S1, Normal S2, No murmurs Abdomen: Soft, No tenderness Extremities: No cyanosis, No edema Skin: No breakdown, No significant lesion Neuro: Normal speech, Sensation intact Psych/Mental Status: Mental status NL, Mood NL MUSCULOSKELETAL: Osteoarthritic changes both hands VITALS/I&O VITALS/I&O: Vital Signs Date Time Temp Pulse Resp B/P (MAP) Pulse Ox O2 Delivery O2 Flow Rate FiO2 05/10/20 11:00 99.4 80 22 150/68 (95) 96 Room Air 99.4 I & O 05/09/20 05/09/20 05/10/20 15:00 23:00 07:00 Intake Total 100 ml Output Total 200 ml 800 ml Balance -200 ml -700 ml LABS Lab: Laboratory Tests Test 05/09/20 16:35 05/09/20 16:40 05/09/20 21:25 05/10/20 08:50 White Blood Count 10.4 x10^3/uL (4.0-11.0) Red Blood Count 3.97 x10^6/uL (4.30-5.70) L Hemoglobin 12.8 g/dL (13.0-17.5) L Hematocrit 37.3 % (39.0-53.0) L Mean Corpuscular Volume 94 fL (79-100) Mean Corpuscular Hemoglobin 32 pg (25-35) Mean Corpuscular Hemoglobin Concent 34 g/dL (31-37) Red Cell Distribution Width 15.6 % (11.5-14.5) H Platelet Count 143 x10^3/uL (140-400) Neutrophils (%) (Auto) 82 % (31-73) H Lymphocytes (%) (Auto) 7 % (24-48) L Monocytes (%) (Auto) 10 % (0-9) H Eosinophils (%) (Auto) 0 % (0-3) Basophils (%) (Auto) 0 % (0-3) Neutrophils # (Auto) 8.6 x10^3/uL (1.8-7.7) H Lymphocytes # (Auto) 0.7 x10^3/uL (1.0-4.8) L Monocytes # (Auto) 1.1 x10^3/uL (0.0-1.1) Eosinophils # (Auto) 0.0 x10^3/uL (0.0-0.7) Basophils # (Auto) 0.0 x10^3/uL (0.0-0.2) Sodium Level 138 mmol/L (136-145) 142 mmol/L (136-145) Potassium Level 4.2 mmol/L (3.5-5.1) 4.5 mmol/L (3.5-5.1) Chloride Level 104 mmol/L (98-107) 104 mmol/L (98-107) Carbon Dioxide Level 21 mmol/L (21-32) 26 mmol/L (21-32) Anion Gap 13 (6-14) 12 (6-14) Blood Urea Nitrogen 47 mg/dL (8-26) H 43 mg/dL (8-26) H Creatinine 2.3 mg/dL (0.7-1.3) H 2.1 mg/dL (0.7-1.3) H Estimated GFR (Cockcroft-Gault) 28.5 31.7 BUN/Creatinine Ratio 20 (6-20) Glucose Level 99 mg/dL (70-99) 158 mg/dL (70-99) H Lactic Acid Level 2.6 mmol/L (0.4-2.0) H 1.9 mmol/L (0.4-2.0) Calcium Level 8.7 mg/dL (8.5-10.1) 8.9 mg/dL (8.5-10.1) Magnesium Level 1.7 mg/dL (1.8-2.4) L 2.1 mg/dL (1.8-2.4) Total Bilirubin 0.5 mg/dL (0.2-1.0) Aspartate Amino Transferase (AST) 24 U/L (15-37) Alanine Aminotransferase (ALT) 43 U/L (16-63) Alkaline Phosphatase 64 U/L (46-116) ZD-Iyv-C-Type Natriuretic Peptide 397 pg/mL (0-124) H Total Protein 6.7 g/dL (6.4-8.2) Albumin 3.1 g/dL (3.4-5.0) L Albumin/Globulin Ratio 0.9 (1.0-1.7) L Urine Collection Type Unknown Urine Color Yellow Urine Clarity Cloudy Urine pH 5.5 (<5.0-8.0) Urine Specific [place] 1.010 (1.000-1.030) Urine Protein Negative mg/dL (NEG-TRACE) Urine Glucose (UA) Negative mg/dL (NEG) Urine Ketones (Stick) Negative mg/dL (NEG) Urine Blood Moderate (NEG) Urine Nitrite Negative (NEG) Urine Bilirubin Negative (NEG) Urine Urobilinogen Dipstick 0.2 mg/dL (0.2 mg/dL) Urine Leukocyte Esterase Large (NEG) Urine RBC 1-2 /HPF (0-2) Urine WBC >40 /HPF (0-4) Urine Bacteria Many /HPF (0-FEW) Test 05/10/20 11:57 Glucose (Fingerstick) 169 mg/dL (70-99) H Laboratory Tests 05/09/20 16:35 Laboratory Tests 05/09/20 16:35 05/10/20 08:50 ECHOCARDIOGRAM ECHOCARDIOGRAM <Conclusion> The left ventricular systolic function is normal. The Ejection Fraction is 55-60%. There is normal LV segmental wall motion. Trace mitral regurgitation. Trace tricuspid regurgitation with an estimated PAP of 34 mmHg. There is no evidence of significant pericardial effusion. DATE: 02/20/20 1134 STRESS TEST STRESS TEST Conclusion 1. No evidence of EKG changes with stress testing. 2. Normal perfusion at stress/rest. Diaphragmatic attenuation artifact noted. 3. Low risk study. 4. EF > 60%. DATE: 08/25/17 1238 ASSESSMENT/PLAN ASSESSMENT/PLAN 1. Weakness, fall. Now with intractable lower back pain 2. CAD: PCI/stent x2 in 2012 3. Hypertension; controlled 4. Hyperlipiemia; statin 5. Diabetes, II 6. SONIYA on CKD; Cr 1.6 in January, now 2.3. 7. Hypomagnesemia; replaced 8. Morbid obesity. SUSANA with CPAP 9. UTI, low-grade fevers. 10. BPH Recommendations Continue secondary prevention measures Hold Lasix, lisinopril for now with SONIYA Antibiotic therapy, follow cultures. Consider outpatient ischemic evaluation Supportive care JACE AGUSTIN MD 05/10/20 1740: CARDIAC CONSULT ASSESSMENT/PLAN ASSESSMENT/PLAN Patient seen and examined I agree with our DRIER OPERATOR's assessment and plan. Weakness with fall. Now severe lower back pain. Work-up in progress. Pain under better control. History of coronary disease with 2 previous stents. No chest pain at this time. Will rule out for an infarct and consider outpatient evaluation. Controlled hypertension Statins for hyperlipidemia Chronic kidney disease. Creatinine now elevated 2.3. Holding Lasix and lisin opril. Monitoring lab. Morbid obesity. Thank you for allowing us to participate in the care of your patient LUNA MACIAS LITO May 10, 2020 12:35 JACE AGUSTIN MD May 10, 2020 17:40
[2020-05-10] MEDS: NYSTATIN TOPICAL POWDER 15GM BOTTLE. TP SCH ×2 (13:43→21:00)
[2020-05-10] MEDS: FLUTICASONE 50MCG/NASAL SPRAY 16GM BOTTLE. NS SCH (13:43)
[2020-05-10] MEDS ORDERED: methylPREDNISolone ACETATE 40 MG/ML VIAL. IM ONE (13:45)
[2020-05-10] MEDS ORDERED: BUPIVACAINE MPF 0.25% 10 ML VIAL. IJ ONE (13:45)
--- NOTE | 2020-05-10 14:18 | NUR ---
SS following for discharge planning. SS reviewed pt chart and discussed with pt RN. Pt is from home with spouse and is currently on room air. Pt has BIPAP machine and walker from home. PT/OT ordered. Dr. Dunaway gave injection today. SS will continue to follow for discharge planning.
--- NOTE | 2020-05-10 14:18 | CONS ---
DATE OF CONSULTATION: 05/10/2020 PULMONARY CONSULTATION ATTENDING PHYSICIAN: Diego Baldwin MD REASON FOR CONSULTATION: The patient was seen at the request of Dr. Baldwin for rehab evaluation. HISTORY OF PRESENT ILLNESS: This is a 69-year-old right-handed male with coronary artery disease, status post stenting; diabetes mellitus; gastroesophageal reflux disease; hyperlipidemia; hypertension; chronic back pain; degenerative disk disease of lumbar vertebrae; also constipation; recent diagnosis of BPH, admitted after his legs collapsed when he got up and since then unable to stand and walk. The patient admits lower back pain. The patient also feels weak for the last couple of days after he was diagnosed as having urinary tract infection. The patient also reports of cough, increasing shortness of breath, worse with exertion, nausea, vomiting, fever, but has been afebrile while here. Chest x-ray was clear. The patient also reports of chronic diarrhea. The patient was noted with creatinine of 2.3. Urinalysis positive for blood and leukocyte esterase. Lactate 2.6. The patient also with known peripheral neuropathy, asthmatic bronchitis, irritable bowel disease, anemia, addictions, osteoarthritis, status post cholecystectomy, tonsillectomy, lives with his . Family history of coronary artery disease and hyperlipidemia. PHYSICAL EXAMINATION: Today revealed a middle-aged male. He is in moderate distress about his back pain. The patient had significant pain with any movement of his back. Even trying to roll to the side, he requires maximal help. He had tenderness to palpation over sacroiliac joint area, left side more than right side. Straight leg raising test is negative bilaterally. He had 5/5 grade muscle strength in his lower extremities. Deep tendon reflexes are absent at both knees and ankles and he had equal perception of touch and pinprick sensation bilaterally. He has some stiffness of both hip joints. I have not tested his ambulation skills at this time. ASSESSMENT: 1. A middle-aged male with chronic lower back pain from degenerative disk disease and degenerative joint disease of lumbar vertebrae without any clinical evidence of ongoing lumbar radiculopathy. 2. Diabetes mellitus with peripheral neuropathy. 3. History of coronary artery disease, status post stenting; hypertension; previous myocardial infarction; hyperlipidemia; asthmatic bronchitis; gastroesophageal reflux disease; irritable bowel syndrome; anemia; osteoarthritis of both knees and hips; chronic lower back pain; recent urinary tract infection; benign prostatic hypertrophy; morbid obesity. RECOMMENDATIONS: At his request, I have injected painful left sacroiliac joint area using 2 mL of 0.25% Marcaine solution mixed with 1 mL of Depo-Medrol 40 mg per 1 mL solution under aseptic skin technique after skin preparation using alcohol swab and he tolerated the procedure satisfactorily without any side effects. To try physical modalities. Agree with the plan for physical therapy and to get him up as tolerated. To increase the dose of hydrocodone to 10. Dr. Baldwin, I appreciate asking me to participate in the care of this interesting patient. I will be glad to see him for followup with you on an as-needed basis. SHANTANU SOLORIO MD DR: JESSE/mariam JOB#: [id number] / [id number]
[2020-05-10 15:00] VITALS: BP 128/59
[2020-05-10] MEDS: LUBIPROSTONE 24 MCG CAPSULE PO SCH (17:00)
[2020-05-10] MEDS: HYDROcodone/APAP 10/325 1 TAB TABLET PO PRN (17:57)
[2020-05-10] MEDS: cefTRIAXone IV Push 1 GM VIAL. IVP SCH (17:58)
[2020-05-10 19:50] VITALS: BP 129/55
[2020-05-10] MEDS: TAMSULOSIN 0.4 MG CAP.ER.24H. PO SCH (20:43)
[2020-05-10] MEDS: tiZANidine 4 MG TABLET. PO SCH (20:43)
[2020-05-10 22:38] VITALS: BP 97/58
[2020-05-11] MEDS: HYDROcodone/APAP 10/325 1 TAB TABLET PO PRN ×3 (00:22→12:14)
[2020-05-11 03:42] VITALS: BP 100/51
[2020-05-11 07:00] VITALS: BP 152/57
[2020-05-11 07:03] LABS: CALCIUM 8.2 mg/dL (8.5-10.1); CREATININE 1.9 mg/dL (0.7-1.3); GFR 35.5; POTASSIUM 4.5 mmol/L (3.5-5.1)
[2020-05-11] MEDS: LUBIPROSTONE 24 MCG CAPSULE PO SCH ×2 (08:00→17:00)
[2020-05-11] MEDS: METOPROLOL SUCC 24HR ER 50 MG TAB.ER.24H. PO SCH (08:18)
[2020-05-11] MEDS: ISOSORBIDE MONONITRATE ER 30 MG TAB.ER.24H PO SCH (08:19)
[2020-05-11] MEDS: PANTOPRAZOLE 40 MG TABLET.DR. PO SCH (08:20)
[2020-05-11] MEDS: ATORVASTATIN CALCIUM 20 MG TABLET PO SCH (08:20)
[2020-05-11] MEDS: FLUTICASONE 50MCG/NASAL SPRAY 16GM BOTTLE. NS SCH (08:20)
[2020-05-11] MEDS: ALLOPURINOL 100 MG TABLET. PO SCH (08:21)
[2020-05-11] MEDS: CETIRIZINE HCL 10 MG TABLET. PO SCH (08:21)
[2020-05-11] MEDS: ASPIRIN ENTERIC COATED 81 MG TABLET.DR. PO SCH (08:21)
[2020-05-11] MEDS: MULTIVITAMIN with MINERAL TABLET. PO SCH (08:21)
[2020-05-11] MEDS: FERROUS SULFATE 325 MG TABLET. PO SCH (08:21)
[2020-05-11] MEDS: CLOPIDOGREL BISULFATE 75 MG TABLET PO SCH (08:21)
[2020-05-11] MEDS: NYSTATIN TOPICAL POWDER 15GM BOTTLE. TP SCH ×2 (08:22→21:29)
[2020-05-11] MEDS: INSULIN LISPRO 300 UNITS/3 ML VIAL. SQ SCH ×4 (08:28→21:00)
--- NOTE | 2020-05-11 08:45 | PDOC ---
PROGRESS NOTES Chief Complaint Chief Complaint A/P: Fall - unable to walk, has intractable left lower back pain, h/o SI joint injection. Will consult PT and PMR physician Dysuria - UTI in male, has been on cipro in the past month, recently seen by Dr. Lamas, started on BPH meds. Will cont rocephin, f/u culture results BPH - cont meds Panniculitis - with prior balanitis, will use topical nystatin powder. Cont rocephin CAD - past stent, clinically stable HTN - controlled Morbid obesity with SUSANA: CPAP at home DM2 - sliding scale CKD3 - Stable from prior visits FEN - Cardiac PPX - heparin FULL CODE Dispo - inpatient History of Present Illness History of Present Illness Mr Drake is a 69 yo M w/ PMHx CAD s/p stents, DM2, GERD, HLD, HTN, chronic back pain, constipation, and recent diagnosis of BPH who presents with generalized weakness for 2 days. Patient reports that he is being treated for urinary tract infection but when he and his reduce his medications they are actually finasteride and tamsulosin. Patient reports that he was trying to get out of bed and ambulate with his walker when he fell due to his weakness on 05/09/2020, he thinks his left SI joint is in some of the worst pain of his life. He denies hitting his head or any loss of consciousness. Patient is reporting dysuria and frequency but reports that he does have urinary frequency due to his Lasix. He also notes some right lower quadrant abdominal pain and has red inflamed pannus. Patient is also reporting a cough, increasing shortness of breath worse with exertion, nausea and vomiting, fever, but has been afebrile here and chest x-ray was clear. Patient denies any abdominal pain, dizziness, focal deficit, or chest pain. He reports that he has chronic diarrhea. He is unable to stand with me Labs significant for WBC 10.4 Hb 13.8 BUN 47 creatinine 2.3 UA positive for blood and leukocyte esterase lactate 2.6 mag 1.7 albumin 3.1. Admitted for further care. S/p left SI joint injection with some improvement. Cr down to 1.9. Still with pain and weakness. Able to stand today for a few seconds. Vitals Vitals Vital Signs Date Time Temp Pulse Resp B/P (MAP) Pulse Ox O2 Delivery O2 Flow Rate FiO2 05/11/20 08:19 68 152/57 05/11/20 07:32 Room Air 05/11/20 03:42 97.6 97 97.6 05/10/20 22:38 20 Physical Exam General: Alert, Oriented X3, Cooperative, moderate distress Lungs: Clear Abdomen: Normal bowel sounds, Soft, No tenderness, No hepatosplenomegaly, No masses Extremities: No clubbing, No cyanosis, No edema, Normal pulses, No t enderness/swelling Skin: Other (Panniculitis) Labs LABS Laboratory Tests Test 05/10/20 08:50 05/10/20 11:57 05/10/20 16:50 05/10/20 20:41 Sodium Level 142 mmol/L (136-145) Potassium Level 4.5 mmol/L (3.5-5.1) Chloride Level 104 mmol/L (98-107) Carbon Dioxide Level 26 mmol/L (21-32) Anion Gap 12 (6-14) Blood Urea Nitrogen 43 mg/dL (8-26) Creatinine 2.1 mg/dL (0.7-1.3) Estimated GFR (Cockcroft-Gault) 31.7 Glucose Level 158 mg/dL (70-99) Calcium Level 8.9 mg/dL (8.5-10.1) Magnesium Level 2.1 mg/dL (1.8-2.4) Glucose (Fingerstick) 169 mg/dL (70-99) 165 mg/dL (70-99) 180 mg/dL (70-99) Test 05/11/20 06:18 05/11/20 07:28 Sodium Level 140 mmol/L (136-145) Potassium Level 4.5 mmol/L (3.5-5.1) Chloride Level 106 mmol/L (98-107) Carbon Dioxide Level 24 mmol/L (21-32) Anion Gap 10 (6-14) Blood Urea Nitrogen 41 mg/dL (8-26) Creatinine 1.9 mg/dL (0.7-1.3) Estimated GFR (Cockcroft-Gault) 35.5 Glucose Level 184 mg/dL (70-99) Calcium Level 8.2 mg/dL (8.5-10.1) Glucose (Fingerstick) 158 mg/dL (70-99) Assessment and Plan Assessmemt and Plan Problems Medical Problems: (1) SONIYA (acute kidney injury) Status: Acute (2) Urinary tract infection Status: Acute Comment Review of Relevant I have reviewed the following items jm (where applicable) has been applied. Labs Laboratory Tests Test 05/09/20 16:35 05/09/20 16:40 05/09/20 21:25 05/10/20 08:50 White Blood Count 10.4 x10^3/uL (4.0-11.0) Red Blood Count 3.97 x10^6/uL (4.30-5.70) Hemoglobin 12.8 g/dL (13.0-17.5) Hematocrit 37.3 % (39.0-53.0) Mean Corpuscular Volume 94 fL (79-100) Mean Corpuscular Hemoglobin 32 pg (25-35) Mean Corpuscular Hemoglobin Concent 34 g/dL (31-37) Red Cell Distribution Width 15.6 % (11.5-14.5) Platelet Count 143 x10^3/uL (140-400) Neutrophils (%) (Auto) 82 % (31-73) Lymphocytes (%) (Auto) 7 % (24-48) Monocytes (%) (Auto) 10 % (0-9) Eosinophils (%) (Auto) 0 % (0-3) Basophils (%) (Auto) 0 % (0-3) Neutrophils # (Auto) 8.6 x10^3/uL (1.8-7.7) Lymphocytes # (Auto) 0.7 x10^3/uL (1.0-4.8) Monocytes # (Auto) 1.1 x10^3/uL (0.0-1.1) Eosinophils # (Auto) 0.0 x10^3/uL (0.0-0.7) Basophils # (Auto) 0.0 x10^3/uL (0.0-0.2) Sodium Level 138 mmol/L (136-145) 142 mmol/L (136-145) Potassium Level 4.2 mmol/L (3.5-5.1) 4.5 mmol/L (3.5-5.1) Chloride Level 104 mmol/L (98-107) 104 mmol/L (98-107) Carbon Dioxide Level 21 mmol/L (21-32) 26 mmol/L (21-32) Anion Gap 13 (6-14) 12 (6-14) Blood Urea Nitrogen 47 mg/dL (8-26) 43 mg/dL (8-26) Creatinine 2.3 mg/dL (0.7-1.3) 2.1 mg/dL (0.7-1.3) Estimated GFR (Cockcroft-Gault) 28.5 31.7 BUN/Creatinine Ratio 20 (6-20) Glucose Level 99 mg/dL (70-99) 158 mg/dL (70-99) Lactic Acid Level 2.6 mmol/L (0.4-2.0) 1.9 mmol/L (0.4-2.0) Calcium Level 8.7 mg/dL (8.5-10.1) 8.9 mg/dL (8.5-10.1) Magnesium Level 1.7 mg/dL (1.8-2.4) 2.1 mg/dL (1.8-2.4) Total Bilirubin 0.5 mg/dL (0.2-1.0) Aspartate Amino Transf (AST/SGOT) 24 U/L (15-37) Alanine Aminotransferase (ALT/SGPT) 43 U/L (16-63) Alkaline Phosphatase 64 U/L (46-116) XE-Dew-T-Type Natriuretic Peptide 397 pg/mL (0-124) Total Protein 6.7 g/dL (6.4-8.2) Albumin 3.1 g/dL (3.4-5.0) Albumin/Globulin Ratio 0.9 (1.0-1.7) Urine Collection Type Unknown Urine Color Yellow Urine Clarity Cloudy Urine pH 5.5 (<5.0-8.0) Urine Specific [place] 1.010 (1.000-1.030) Urine Protein Negative mg/dL (NEG-TRACE) Urine Glucose (UA) Negative mg/dL (NEG) Urine Ketones (Stick) Negative mg/dL (NEG) Urine Blood Moderate (NEG) Urine Nitrite Negative (NEG) Urine Bilirubin Negative (NEG) Urine Urobilinogen Dipstick 0.2 mg/dL (0.2 mg/dL) Urine Leukocyte Esterase Large (NEG) Urine RBC 1-2 /HPF (0-2) Urine WBC >40 /HPF (0-4) Urine Bacteria Many /HPF (0-FEW) Test 05/10/20 11:57 05/10/20 16:50 05/10/20 20:41 05/11/20 06:18 Glucose (Fingerstick) 169 mg/dL (70-99) 165 mg/dL (70-99) 180 mg/dL (70-99) Sodium Level 140 mmol/L (136-145) Potassium Level 4.5 mmol/L (3.5-5.1) Chloride Level 106 mmol/L (98-107) Carbon Dioxide Level 24 mmol/L (21-32) Anion Gap 10 (6-14) Blood Urea Nitrogen 41 mg/dL (8-26) Creatinine 1.9 mg/dL (0.7-1.3) Estimated GFR (Cockcroft-Gault) 35.5 Glucose Level 184 mg/dL (70-99) Calcium Level 8.2 mg/dL (8.5-10.1) Test 05/11/20 07:28 Glucose (Fingerstick) 158 mg/dL (70-99) Laboratory Tests Test 05/10/20 08:50 05/10/20 11:57 05/10/20 16:50 05/10/20 20:41 Sodium Level 142 mmol/L (136-145) Potassium Level 4.5 mmol/L (3.5-5.1) Chloride Level 104 mmol/L (98-107) Carbon Dioxide Level 26 mmol/L (21-32) Anion Gap 12 (6-14) Blood Urea Nitrogen 43 mg/dL (8-26) Creatinine 2.1 mg/dL (0.7-1.3) Estimated GFR (Cockcroft-Gault) 31.7 Glucose Level 158 mg/dL (70-99) Calcium Level 8.9 mg/dL (8.5-10.1) Magnesium Level 2.1 mg/dL (1.8-2.4) Glucose (Fingerstick) 169 mg/dL (70-99) 165 mg/dL (70-99) 180 mg/dL (70-99) Test 05/11/20 06:18 05/11/20 07:28 Sodium Level 140 mmol/L (136-145) Potassium Level 4.5 mmol/L (3.5-5.1) Chloride Level 106 mmol/L (98-107) Carbon Dioxide Level 24 mmol/L (21-32) Anion Gap 10 (6-14) Blood Urea Nitrogen 41 mg/dL (8-26) Creatinine 1.9 mg/dL (0.7-1.3) Estimated GFR (Cockcroft-Gault) 35.5 Glucose Level 184 mg/dL (70-99) Calcium Level 8.2 mg/dL (8.5-10.1) Glucose (Fingerstick) 158 mg/dL (70-99) Medications Current Medications Lidocaine (Lidoderm) 1 patch DAILY TD Last administered on 05/09/20at 18:03; Start 05/10/20 at 09:00 Lidocaine (Lidoderm) 1 patch STK-MED ONCE .ROUTE ; Start 05/09/20 at 17:58; Stop 05/09/20 at 17:58; Status DC Acetaminophen (Tylenol) 1,000 mg 1X ONCE PO Last administered on 05/09/20 18:28; Start 05/09/20 at 18:15; Stop 05/09/20 at 18:21; Status DC Ceftriaxone Sodium (Rocephin) 1 gm 1X ONCE IVP Last administered on 05/09/20at 18:28; Start 05/09/20 at 18:15; Stop 05/09/20 at 18:21; Status DC Acetaminophen/ Hydrocodone Bitart (Lortab 5/325) 1 tab 1X ONCE PO Last administered on 05/09/20at 21:00; Start 05/09/20 at 21:00; Stop 05/09/20 at 21:04; Status DC Acetaminophen/ Hydrocodone Bitart (Lortab 5/325) 1 tab PRN Q4HRS PRN PO PAIN Last administered on 05/10/20at 13:42; Start 05/10/20 at 00:15 Allopurinol (Zyloprim) 100 mg DAILY PO Last administered on 05/11/20 08:21; Start 05/10/20 at 10:00 Aspirin (Ecotrin) 81 mg DAILY PO Last administered on 05/11/20 08:21; Start 05/10/20 at 09:30 Atorvastatin Calcium (Lipitor) 20 mg DAILY PO Last administered on 05/11/20 08:20; Start 05/10/20 at 10:00 Clopidogrel Bisulfate (Plavix) 75 mg DAILY PO Last administered on 05/11/20at 08:21; Start 05/10/20 at 10:00 Ferrous Sulfate (Feosol) 325 mg DAILY PO Last administered on 05/11/20 08:21; Start 05/10/20 at 10:00 Fluticasone Propionate (Flonase) 2 spray DAILY NS Last administered on 05/11/20 08:20; Start 05/10/20 at 10:00 Isosorbide Mononitrate (Imdur) 60 mg DAILY PO Last administered on 05/11/20 08:19; Start 05/10/20 at 10:00 Pantoprazole Sodium (Protonix) 40 mg DAILY PO Last administered on 05/11/20 08:20; Start 05/10/20 at 10:00 Tamsulosin HCl (Flomax) 0.4 mg HS PO Last administered on 05/10/20 20:43; Start 05/10/20 at 21:00 Tizanidine HCl (Zanaflex) 4 mg QHS PO Last administered on 05/10/20 20:43; Start 05/10/20 at 21:00 Ascorbic Acid (Vitamin C) 1,000 mg DAILY PO ; Start 05/11/20 at 10:00 Cetirizine HCl (ZyrTEC) 10 mg DAILY PO Last administered on 05/11/20 08:21; Start 05/10/20 at 10:00 Lubiprostone (Amitiza) 24 mcg BIDWMEALS PO ; Start 05/10/20 at 17:00 Metoprolol Succinate (Toprol Xl) 50 mg DAILY PO Last administered on 05/11/20 08:18; Start 05/10/20 at 10:00 Multivitamins (Thera M Plus) 1 tab DAILY PO Last administered on 05/11/20 08:21; Start 05/10/20 at 10:00 Insulin Human Lispro (HumaLOG) 0-7 UNITS TIDACHC SQ Last administered on 05/11/20 08:28; Start 05/10/20 at 11:30 Dextrose (Dextrose 50%-Water Syringe) 12.5 gm PRN Q15MIN PRN IV SEE COMMENTS; Start 05/10/20 at 09:00 Ceftriaxone Sodium (Rocephin) 1 gm Q24H IVP Last administered on 05/10/20at 17:58; Start 05/10/20 at 18:00 Nystatin (Nystop) 1 jose miguel BID TP Last administered on 05/11/20at 08:22; Start 05/10/20 at 12:45 Methylprednisolone Acetate (DEPO-Medrol 40MG VIAL) 40 mg 1X ONCE IM Last administered on 05/10/20at 14:23; Start 05/10/20 at 13:45; Stop 05/10/20 at 13:46; Status DC Bupivacaine HCl (Sensorcaine-Mpf 0.25%) 10 ml 1X ONCE IJ Last administered on 05/10/20at 13:45; Start 05/10/20 at 13:45; Stop 05/10/20 at 13:46; Status DC Acetaminophen/ Hydrocodone Bitart (Lortab 10/325) 1 tab PRN Q6HRS PRN PO PAIN Last administered on 05/11/20at 06:32; Start 05/10/20 at 14:00 Active Scripts Active Aspirin Ec (Aspirin) 81 Mg Tablet.dr 1 Tab PO DAILY Reported Flomax (Tamsulosin Hcl) 0.4 Mg Cap.er.24h 1 Cap PO HS Fluticasone Propionate Nasal Bridger (Fluticasone Propionate) 16 Gm Bridger.susp 2 Bridger NS DAILY Klor-Con M20 (Potassium Chloride) 20 Meq Tab.er.prt 20 Meq PO HS Linzess (Linaclotide) 145 Mcg Capsule 145 Mcg PO 3X/WEEK Fexofenadine Hcl 180 Mg Tablet 1 Tab PO DAILY Potassium Gluconate 99 Mg Tablet 99 Mg PO DAILY Vitamin C (Ascorbic Acid) 500 Mg Capsule.er 1,000 Mg PO DAILY One Daily For Men Tablet (Multivits-Minerals/Fa/Lycopene) 1 Each Tablet 1 Tab PO DAILY 30 Days Iron (Ferrous Sulfate) 325 Mg Tablet 65 Mg PO DAILY Metformin Hcl 1,000 Mg Tablet 1,000 Mg PO BIDWMEALS Allopurinol 300 Mg Tablet 1 Tab PO DAILY Lisinopril 40 Mg Tablet 1 Tab PO BID Vitamin D2 (Ergocalciferol (Vitamin D2)) 50,000 Unit Capsule 50,000 Unit PO WEEKLY Dose given on the Take on Pantoprazole Sodium (Pantoprazole Sodium) 40 Mg Tablet. 1 Tab PO DAILY Gave this morning take tomorrow morning Tizanidine Hcl 4 Mg Tablet 1 Tab PO QHS Gave dose last night Take tonight before bedtime Vascepa (Icosapent Ethyl) 1 Gm Capsule 1 Gm PO Not given on this admission Take as previoulsy instructed Atorvastatin Calcium 20 Mg Tablet 1 Tab PO DAILY Gave last night Take tonight Clopidogrel (Clopidogrel Bisulfate) 75 Mg Tablet 1 Tab PO DAILY Gave this morning take tomorrow morning Isosorbide Mononitrate Er (Isosorbide Mononitrate) 30 Mg Tab.er.24h 60 Mg PO DAILY Gave this morning take tomorrow morning Furosemide 40 Mg Tablet 1 Tab PO DAILY Gave this morning take tomorrow morning Repaglinide 1 Mg Tablet 1 Mg PO Not given on this admission Continue as previously instructed Toprol Xl (Metoprolol Succinate) 50 Mg Tab.er.24h 1 Tab PO DAILY Gave this morning take tomorrow morning Vitals/I & O Vital Sign - Last 24 Hours 05/10/20 05/10/20 05/10/20 05/10/20 09:15 10:15 10:42 10:42 Pulse 80 80 Resp 16 B/P (MAP) 118/58 118/58 O2 Delivery Room Air Room Air 05/10/20 05/10/20 05/10/20 05/10/20 11:00 13:42 14:42 15:00 Temp 99.4 99.1 99.4 99.1 Pulse 80 78 Resp 22 16 16 22 B/P (MAP) 150/68 (95) 128/59 (82) Pulse Ox 96 92 O2 Delivery Room Air Room Air Room Air Room Air 05/10/20 05/10/20 05/10/20 05/10/20 17:57 19:00 19:50 20:00 Temp 98.5 98.5 Pulse 72 Resp 16 20 B/P (MAP) 129/55 (79) Pulse Ox 92 O2 Delivery Room Air Room Air Room Air Room Air 05/10/20 05/11/20 05/11/20 05/11/20 22:38 00:22 01:22 03:42 Temp 97.4 97.6 97.4 97.6 Pulse 73 61 Resp 20 B/P (MAP) 97/58 (71) 100/51 (67) Pulse Ox 93 97 O2 Delivery Room Air Room Air BiPAP/CPAP BiPAP/CPAP 05/11/20 05/11/20 05/11/20 05/11/20 06:32 07:32 08:18 08:19 Pulse 68 68 B/P (MAP) 152/57 152/57 O2 Delivery Room Air Room Air Intake and Output 05/10/20 05/10/20 05/11/20 15:00 23:00 07:00 Intake Total 0 ml 200 ml 800 ml Output Total 430 ml 450 ml 150 ml Balance -430 ml -250 ml 650 ml Justicifation of Admission Dx: Justifications for Admission: Justification of Admission Dx: Yes TIMA LEDESMA MD May 11, 2020 08:45
--- NOTE | 2020-05-11 09:28 | PDOC ---
PROGRESS NOTES Subjective Subjective He admits some easing of his low back pain. Objective Objective Vital Signs Date Time Temp Pulse Resp B/P (MAP) Pulse Ox O2 Delivery O2 Flow Rate FiO2 05/11/20 08:19 68 152/57 05/11/20 08:00 Room Air 05/11/20 07:00 98.1 97 98.1 05/10/20 22:38 20 Intake and Output 05/11/20 07:00 Intake Total 1000 ml Output Total 1030 ml Balance -30 ml Intake Oral 1000 ml Output Urine Total 1030 ml Physical Exam Physical Exam He continues with tenderness to palpation over sacroiliac joint and painfullly limited lumbar spine ROM. He had abdominal binder in place. Assessment Assessment Problems Medical Problems: (1) SONIYA (acute kidney injury) Status: Acute (2) Urinary tract infection Status: Acute Plan Plan of Care To get him up as tolerated. Comment Review of Relevant I have reviewed the following items jm (where applicable) has been applied. Labs Laboratory Tests Test 05/09/20 16:35 05/09/20 16:40 05/09/20 21:25 05/10/20 08:50 White Blood Count 10.4 x10^3/uL (4.0-11.0) Red Blood Count 3.97 x10^6/uL (4.30-5.70) Hemoglobin 12.8 g/dL (13.0-17.5) Hematocrit 37.3 % (39.0-53.0) Mean Corpuscular Volume 94 fL (79-100) Mean Corpuscular Hemoglobin 32 pg (25-35) Mean Corpuscular Hemoglobin Concent 34 g/dL (31-37) Red Cell Distribution Width 15.6 % (11.5-14.5) Platelet Count 143 x10^3/uL (140-400) Neutrophils (%) (Auto) 82 % (31-73) Lymphocytes (%) (Auto) 7 % (24-48) Monocytes (%) (Auto) 10 % (0-9) Eosinophils (%) (Auto) 0 % (0-3) Basophils (%) (Auto) 0 % (0-3) Neutrophils # (Auto) 8.6 x10^3/uL (1.8-7.7) Lymphocytes # (Auto) 0.7 x10^3/uL (1.0-4.8) Monocytes # (Auto) 1.1 x10^3/uL (0.0-1.1) Eosinophils # (Auto) 0.0 x10^3/uL (0.0-0.7) Basophils # (Auto) 0.0 x10^3/uL (0.0-0.2) Sodium Level 138 mmol/L (136-145) 142 mmol/L (136-145) Potassium Level 4.2 mmol/L (3.5-5.1) 4.5 mmol/L (3.5-5.1) Chloride Level 104 mmol/L (98-107) 104 mmol/L (98-107) Carbon Dioxide Level 21 mmol/L (21-32) 26 mmol/L (21-32) Anion Gap 13 (6-14) 12 (6-14) Blood Urea Nitrogen 47 mg/dL (8-26) 43 mg/dL (8-26) Creatinine 2.3 mg/dL (0.7-1.3) 2.1 mg/dL (0.7-1.3) Estimated GFR (Cockcroft-Gault) 28.5 31.7 BUN/Creatinine Ratio 20 (6-20) Glucose Level 99 mg/dL (70-99) 158 mg/dL (70-99) Lactic Acid Level 2.6 mmol/L (0.4-2.0) 1.9 mmol/L (0.4-2.0) Calcium Level 8.7 mg/dL (8.5-10.1) 8.9 mg/dL (8.5-10.1) Magnesium Level 1.7 mg/dL (1.8-2.4) 2.1 mg/dL (1.8-2.4) Total Bilirubin 0.5 mg/dL (0.2-1.0) Aspartate Amino Transf (AST/SGOT) 24 U/L (15-37) Alanine Aminotransferase (ALT/SGPT) 43 U/L (16-63) Alkaline Phosphatase 64 U/L (46-116) CU-[id number]-[id number]-Type Natriuretic Peptide 397 pg/mL (0-124) Total Protein 6.7 g/dL (6.4-8.2) Albumin 3.1 g/dL (3.4-5.0) Albumin/Globulin Ratio 0.9 (1.0-1.7) Urine Collection Type Unknown Urine Color Yellow Urine Clarity Cloudy Urine pH 5.5 (<5.0-8.0) Urine Specific [place] 1.010 (1.000-1.030) Urine Protein Negative mg/dL (NEG-TRACE) Urine Glucose (UA) Negative mg/dL (NEG) Urine Ketones (Stick) Negative mg/dL (NEG) Urine Blood Moderate (NEG) Urine Nitrite Negative (NEG) Urine Bilirubin Negative (NEG) Urine Urobilinogen Dipstick 0.2 mg/dL (0.2 mg/dL) Urine Leukocyte Esterase Large (NEG) Urine RBC 1-2 /HPF (0-2) Urine WBC >40 /HPF (0-4) Urine Bacteria Many /HPF (0-FEW) Test 05/10/20 11:57 05/10/20 16:50 05/10/20 20:41 05/11/20 06:18 Glucose (Fingerstick) 169 mg/dL (70-99) 165 mg/dL (70-99) 180 mg/dL (70-99) Sodium Level 140 mmol/L (136-145) Potassium Level 4.5 mmol/L (3.5-5.1) Chloride Level 106 mmol/L (98-107) Carbon Dioxide Level 24 mmol/L (21-32) Anion Gap 10 (6-14) Blood Urea Nitrogen 41 mg/dL (8-26) Creatinine 1.9 mg/dL (0.7-1.3) Estimated GFR (Cockcroft-Gault) 35.5 Glucose Level 184 mg/dL (70-99) Calcium Level 8.2 mg/dL (8.5-10.1) Test 05/11/20 07:28 Glucose (Fingerstick) 158 mg/dL (70-99) Laboratory Tests Test 05/10/20 11:57 05/10/20 16:50 05/10/20 20:41 05/11/20 06:18 Glucose (Fingerstick) 169 mg/dL (70-99) 165 mg/dL (70-99) 180 mg/dL (70-99) Sodium Level 140 mmol/L (136-145) Potassium Level 4.5 mmol/L (3.5-5.1) Chloride Level 106 mmol/L (98-107) Carbon Dioxide Level 24 mmol/L (21-32) Anion Gap 10 (6-14) Blood Urea Nitrogen 41 mg/dL (8-26) Creatinine 1.9 mg/dL (0.7-1.3) Estimated GFR (Cockcroft-Gault) 35.5 Glucose Level 184 mg/dL (70-99) Calcium Level 8.2 mg/dL (8.5-10.1) Test 05/11/20 07:28 Glucose (Fingerstick) 158 mg/dL (70-99) Medications Current Medications Lidocaine (Lidoderm) 1 patch DAILY TD Last administered on 05/09/20at 18:03; Start 05/10/20 at 09:00 Lidocaine (Lidoderm) 1 patch STK-MED ONCE .ROUTE ; Start 05/09/20 at 17:58; Stop 05/09/20 at 17:58; Status DC Acetaminophen (Tylenol) 1,000 mg 1X ONCE PO Last administered on 05/09/20 18:28; Start 05/09/20 at 18:15; Stop 05/09/20 at 18:21; Status DC Ceftriaxone Sodium (Rocephin) 1 gm 1X ONCE IVP Last administered on 05/09/20at 18:28; Start 05/09/20 at 18:15; Stop 05/09/20 at 18:21; Status DC Acetaminophen/ Hydrocodone Bitart (Lortab 5/325) 1 tab 1X ONCE PO Last administered on 05/09/20at 21:00; Start 05/09/20 at 21:00; Stop 05/09/20 at 21:04; Status DC Acetaminophen/ Hydrocodone Bitart (Lortab 5/325) 1 tab PRN Q4HRS PRN PO PAIN Last administered on 05/10/20at 13:42; Start 05/10/20 at 00:15 Allopurinol (Zyloprim) 100 mg DAILY PO Last administered on 05/11/20 08:21; Start 05/10/20 at 10:00 Aspirin (Ecotrin) 81 mg DAILY PO Last administered on 05/11/20 08:21; Start 05/10/20 at 09:30 Atorvastatin Calcium (Lipitor) 20 mg DAILY PO Last administered on 05/11/20 08:20; Start 05/10/20 at 10:00 Clopidogrel Bisulfate (Plavix) 75 mg DAILY PO Last administered on 7/10/20at 08:21; Start 05/10/20 at 10:00 Ferrous Sulfate (Feosol) 325 mg DAILY PO Last administered on 05/11/20 08:21; Start 05/10/20 at 10:00 Fluticasone Propionate (Flonase) 2 spray DAILY NS Last administered on 05/11/20 08:20; Start 05/10/20 at 10:00 Isosorbide Mononitrate (Imdur) 60 mg DAILY PO Last administered on 05/11/20 08:19; Start 05/10/20 at 10:00 Pantoprazole Sodium (Protonix) 40 mg DAILY PO Last administered on 05/11/20 08:20; Start 05/10/20 at 10:00 Tamsulosin HCl (Flomax) 0.4 mg HS PO Last administered on 05/10/20 20:43; Start 05/10/20 at 21:00 Tizanidine HCl (Zanaflex) 4 mg QHS PO Last administered on 05/10/20 20:43; Start 05/10/20 at 21:00 Ascorbic Acid (Vitamin C) 1,000 mg DAILY PO ; Start 05/11/20 at 10:00 Cetirizine HCl (ZyrTEC) 10 mg DAILY PO Last administered on 05/11/20 08:21; Start 05/10/20 at 10:00 Lubiprostone (Amitiza) 24 mcg BIDWMEALS PO ; Start 05/10/20 at 17:00 Metoprolol Succinate (Toprol Xl) 50 mg DAILY PO Last administered on 05/11/20 08:18; Start 05/10/20 at 10:00 Multivitamins (Thera M Plus) 1 tab DAILY PO Last administered on 05/11/20 08:21; Start 05/10/20 at 10:00 Insulin Human Lispro (HumaLOG) 0-7 UNITS TIDACHC SQ Last administered on 05/11/20 08:28; Start 05/10/20 at 11:30 Dextrose (Dextrose 50%-Water Syringe) 12.5 gm PRN Q15MIN PRN IV SEE COMMENTS; Start 05/10/20 at 09:00 Ceftriaxone Sodium (Rocephin) 1 gm Q24H IVP Last administered on 05/10/20at 17:58; Start 05/10/20 at 18:00 Nystatin (Nystop) 1 jose miguel BID TP Last administered on 05/11/20at 08:22; Start 05/10/20 at 12:45 Methylprednisolone Acetate (DEPO-Medrol 40MG VIAL) 40 mg 1X ONCE IM Last administered on 05/10/20at 14:23; Start 05/10/20 at 13:45; Stop 05/10/20 at 13:46; Status DC Bupivacaine HCl (Sensorcaine-Mpf 0.25%) 10 ml 1X ONCE IJ Last administered on 05/10/20at 13:45; Start 05/10/20 at 13:45; Stop 05/10/20 at 13:46; Status DC Acetaminophen/ Hydrocodone Bitart (Lortab 10/325) 1 tab PRN Q6HRS PRN PO PAIN Last administered on 05/11/20at 06:32; Start 05/10/20 at 14:00 Active Scripts Active Aspirin Ec (Aspirin) 81 Mg Tablet.dr 1 Tab PO DAILY Reported Flomax (Tamsulosin Hcl) 0.4 Mg Cap.er.24h 1 Cap PO HS Fluticasone Propionate Nasal [place] (Fluticasone Propionate) 16 Gm [place].susp 2 [place] NS DAILY Klor-Con M20 (Potassium Chloride) 20 Meq Tab.er.prt 20 Meq PO HS Linzess (Linaclotide) 145 Mcg Capsule 145 Mcg PO 3X/WEEK Fexofenadine Hcl 180 Mg Tablet 1 Tab PO DAILY Potassium Gluconate 99 Mg Tablet 99 Mg PO DAILY Vitamin C (Ascorbic Acid) 500 Mg Capsule.er 1,000 Mg PO DAILY One Daily For Men Tablet (Multivits-Minerals/Fa/Lycopene) 1 Each Tablet 1 Tab PO DAILY 30 Days Iron (Ferrous Sulfate) 325 Mg Tablet 65 Mg PO DAILY Metformin Hcl 1,000 Mg Tablet 1,000 Mg PO BIDWMEALS Allopurinol 300 Mg Tablet 1 Tab PO DAILY Lisinopril 40 Mg Tablet 1 Tab PO BID Vitamin D2 (Ergocalciferol (Vitamin D2)) 50,000 Unit Capsule 50,000 Unit PO WEEKLY Dose given on the Take on Pantoprazole Sodium (Pantoprazole Sodium) 40 Mg Tablet.dr 1 Tab PO DAILY Gave this morning take tomorrow morning Tizanidine Hcl 4 Mg Tablet 1 Tab PO QHS Gave dose last night Take tonight before bedtime Vascepa (Icosapent Ethyl) 1 Gm Capsule 1 Gm PO Not given on this admission Take as previoulsy instructed Atorvastatin Calcium 20 Mg Tablet 1 Tab PO DAILY Gave last night Take tonight Clopidogrel (Clopidogrel Bisulfate) 75 Mg Tablet 1 Tab PO DAILY Gave this morning take tomorrow morning Isosorbide Mononitrate Er (Isosorbide Mononitrate) 30 Mg Tab.er.24h 60 Mg PO DAILY Gave this morning take tomorrow morning Furosemide 40 Mg Tablet 1 Tab PO DAILY Gave this morning take tomorrow morning Repaglinide 1 Mg Tablet 1 Mg PO Not given on this admission Continue as previously instructed Toprol Xl (Metoprolol Succinate) 50 Mg Tab.er.24h 1 Tab PO DAILY Gave this morning take tomorrow morning Vitals/I & O Vital Sign - Last 24 Hours 05/10/20 05/10/20 05/10/20 05/10/20 10:15 10:42 10:42 11:00 Temp 99.4 99.4 Pulse 80 80 80 Resp 16 22 B/P (MAP) 118/58 118/58 150/68 (95) Pulse Ox 96 O2 Delivery Room Air Room Air 05/10/20 05/10/20 05/10/20 05/10/20 13:42 14:42 15:00 17:57 Temp 99.1 99.1 Pulse 78 Resp 16 16 22 16 B/P (MAP) 128/59 (82) Pulse Ox 92 O2 Delivery Room Air Room Air Room Air Room Air 05/10/20 05/10/20 05/10/20 05/10/20 19:00 19:50 20:00 22:38 Temp 98.5 97.4 98.5 97.4 Pulse 72 73 Resp 20 20 B/P (MAP) 129/55 (79) 97/58 (71) Pulse Ox 92 93 O2 Delivery Room Air Room Air Room Air Room Air 05/11/20 05/11/20 05/11/20 05/11/20 00:22 01:22 03:42 06:32 Temp 97.6 97.6 Pulse 61 B/P (MAP) 100/51 (67) Pulse Ox 97 O2 Delivery Room Air BiPAP/CPAP BiPAP/CPAP Room Air 05/11/20 05/11/20 05/11/20 05/11/20 07:00 07:32 08:00 08:18 Temp 98.1 98.1 Pulse 61 68 B/P (MAP) 152/57 (88) 152/57 Pulse Ox 97 O2 Delivery BiPAP/CPAP Room Air Room Air 05/11/20 08:19 Pulse 68 B/P (MAP) 152/57 Intake and Output 05/10/20 05/10/20 05/11/20 15:00 23:00 07:00 Intake Total 0 ml 200 ml 800 ml Output Total 430 ml 450 ml 150 ml Balance -430 ml -250 ml 650 ml Justicifation of Admission Dx: Justifications for Admission: Justification of Admission Dx: Yes SHANTANU SOLORIO MD May 11, 2020 09:28
[2020-05-11] MEDS: SENNOSIDES/DOCUSATE 8.6/50MG TABLET. PO SCH ×2 (10:00→21:27)
[2020-05-11] MEDS: BISACODYL 5 MG TABLET.DR. PO SCH (10:00)
[2020-05-11 11:00] VITALS: BP 127/63
--- NOTE | 2020-05-11 11:12 | PDOC ---
[facility] [employer] 05/11/20 1112: CARDIO Progress Notes Date and Time Date of Service 05/11/2020 Time of Evaluation 1020 Subjective Subjective: No Chest Pain, No shortness of breath, No Palpitations Vitals Vitals Vital Signs Date Time Temp Pulse Resp B/P (MAP) Pulse Ox O2 Delivery O2 Flow Rate FiO2 05/11/20 08:19 68 152/57 05/11/20 08:00 Room Air 05/11/20 07:00 98.1 97 98.1 05/10/20 22:38 20 Weight Weight [ ] Input and Output Intake and Output Intake and Output 05/11/20 07:00 Intake Total 1000 ml Output Total 1030 ml Balance -30 ml Intake Oral 1000 ml Output Urine Total 1030 ml Laboratory Labs Laboratory Tests Test 05/10/20 11:57 05/10/20 16:50 05/10/20 20:41 05/11/20 06:18 Glucose (Fingerstick) 169 mg/dL (70-99) 165 mg/dL (70-99) 180 mg/dL (70-99) Sodium Level 140 mmol/L (136-145) Potassium Level 4.5 mmol/L (3.5-5.1) Chloride Level 106 mmol/L (98-107) Carbon Dioxide Level 24 mmol/L (21-32) Anion Gap 10 (6-14) Blood Urea Nitrogen 41 mg/dL (8-26) Creatinine 1.9 mg/dL (0.7-1.3) Estimated GFR (Cockcroft-Gault) 35.5 Glucose Level 184 mg/dL (70-99) Calcium Level 8.2 mg/dL (8.5-10.1) Test 05/11/20 07:28 Glucose (Fingerstick) 158 mg/dL (70-99) Physical Exam HEENT: Neck Supple W Full Motion Chest: Symmetric LUNGS: Clear to Auscultation Heart: S1S2, RRR (SR) Abdomen: Other (obese) Extremities: No Calf Tenderness, Other (1+ bilateral LE pitting edema) Neurology: alert, oriented, follow commands Assessment Assessment 1. Weakness with mechanical fall. Now with intractable lower back pain. Dr. Dunaway following 2. CAD: PCI/stent x2 in 2012, clinically stable 3. Hypertension; controlled 4. Hyperlipiemia; statin 5. Diabetes, II 6. SONIYA on CKD; Cr down to 1.9 7. Hypomagnesemia; resolved 8. Morbid obesity. SUSANA with CPAP 9. UTI, low-grade fevers. 10. BPH 11. Chronic diastolic CHF: compensated Recommendations Continue secondary prevention measures. ASA/plavix. Hydralazine IV PRN Hold Lasix, lisinopril for now with SONIYA Antibiotic therapy, follow cultures. Consider outpatient ischemic evaluation Supportive care Justicifation of Admission Dx: Justifications for Admission: Justification of Admission Dx: Yes JACE AGUSTIN MD 05/11/20 1327: CARDIO Progress Notes Assessment Assessment Patient seen and examined I agree with our nurse practitioners assessment and plan. Weakness with mechanical fall. Now with intractable lower back pain. Dr. Dunaway following CAD: PCI/stent x2 in 2012, clinically stable. Outpatient work-up Hypertension; controlled Hyperlipiemia; statin SONIYA on CKD; Cr down to 1.9 Morbid obesity. SUSANA with CPAP UTI, low-grade fevers. Chronic diastolic CHF: compensated YAYO RAJAN APRN May 11, 2020 11:12 JACE AGUSTIN MD May 11, 2020 13:27
[2020-05-11] MEDS ORDERED: hydrALAZINE 20 MG/ML VIAL. IVP PRN (11:15)
[2020-05-11] MEDS: PSYLLIUM HUSK (SUGAR FREE) 1 PKT PACKET PO SCH (12:00)
[2020-05-11] MEDS: ASCORBIC ACID 500 MG TABLET PO SCH (12:12)
[2020-05-11] MEDS: LIDOCAINE (700MG/PATCH) PATCH. TD SCH (12:13)
--- NOTE | 2020-05-11 12:38 | NUR ---
SS following up with discharge planning. SS reviewed pt chart and discussed with pt RN. pt is currently on room air and IV Rocephin. PT/OT evaluated and recommended acute rehabilitation. SS met with pt and pt's spouse in room and discussed discharge planning and acute rehabilitation. Pt and pt's spouse declined inpatient rehabilitation. Pt reported that he will return to home with his spouse and home healthcare. Pt and pt's spouse reported having no preference of home healthcare company. [employer] and production plannerАнна, phoned and faxed referral to [facility], ; fax [phone]. SS will continue to follow for discharge planning.
[2020-05-11 15:00] VITALS: BP 118/56
--- NOTE | 2020-05-11 15:06 | RAD ---
EXAM: RENAL/RETROPERITONAL ULTRASOUND. HISTORY: Acute renal injury. COMPARISON: None. FINDINGS: Ultrasound of the kidneys, bladder and retroperitoneum was performed. Visualization is limited by habitus. The right kidney measures at least 9.2 cm. Cortical thickness and echogenicity are preserved. There is no hydronephrosis. The left kidney measures 11.7 cm. Cortical thickness and echogenicity are preserved. There is no hydronephrosis. The bladder is not visualized currently. The abdominal aorta and inferior vena cava are grossly patent and normal in caliber. Hyperechogenicity of the hepatic parenchyma is consistent with diffuse hepatic steatosis. IMPRESSION: 1. Limited visualization. Unremarkable examination of the kidneys. No hydronephrosis. 2. Diffuse hepatic steatosis. Electronically signed by: River Louise MD (05/11/2020 3:03 PM) [id number]
[2020-05-11] MEDS: cefTRIAXone IV Push 1 GM VIAL. IVP SCH (17:08)
[2020-05-11] MEDS: HEPARIN for SUB-Q USE 5,000 UNIT/ML VIAL. SQ SCH ×2 (17:21→22:10)
[2020-05-11 19:00] VITALS: BP 131/66
[2020-05-11] MEDS: LACTOBACILLUS RHAMNOSUS GG 1 CAPSULE. PO SCH (21:27)
[2020-05-11] MEDS: TAMSULOSIN 0.4 MG CAP.ER.24H. PO SCH (21:28)
[2020-05-11] MEDS: tiZANidine 4 MG TABLET. PO SCH (21:28)
[2020-05-11] MEDS: HYDROcodone/APAP 5/325MG 1 TAB TABLET PO PRN (21:28)
[2020-05-11 23:00] VITALS: BP 140/60
[2020-05-12 02:47] VITALS: BP 140/73
[2020-05-12 05:33] LABS: CALCIUM 7.7 mg/dL (8.5-10.1); CREATININE 1.2 mg/dL (0.7-1.3); GFR 60.4; POTASSIUM 4.4 mmol/L (3.5-5.1)
[2020-05-12] MEDS: HEPARIN for SUB-Q USE 5,000 UNIT/ML VIAL. SQ SCH ×3 (06:25→21:07)
[2020-05-12 07:02] VITALS: BP 138/73
[2020-05-12] MEDS: INSULIN LISPRO 300 UNITS/3 ML VIAL. SQ SCH ×4 (07:30→20:51)
[2020-05-12] MEDS: ATORVASTATIN CALCIUM 20 MG TABLET PO SCH (08:49)
[2020-05-12] MEDS: METOPROLOL SUCC 24HR ER 50 MG TAB.ER.24H. PO SCH (08:50)
[2020-05-12] MEDS: CETIRIZINE HCL 10 MG TABLET. PO SCH (08:50)
[2020-05-12] MEDS: LUBIPROSTONE 24 MCG CAPSULE PO SCH ×2 (08:50→17:18)
[2020-05-12] MEDS: CLOPIDOGREL BISULFATE 75 MG TABLET PO SCH (08:50)
[2020-05-12] MEDS: MULTIVITAMIN with MINERAL TABLET. PO SCH (08:50)
[2020-05-12] MEDS: LACTOBACILLUS RHAMNOSUS GG 1 CAPSULE. PO SCH ×2 (08:50→21:02)
[2020-05-12] MEDS: ASCORBIC ACID 500 MG TABLET PO SCH (08:50)
[2020-05-12] MEDS: FERROUS SULFATE 325 MG TABLET. PO SCH (08:50)
[2020-05-12] MEDS: ALLOPURINOL 100 MG TABLET. PO SCH (08:50)
[2020-05-12] MEDS: ASPIRIN ENTERIC COATED 81 MG TABLET.DR. PO SCH (08:50)
[2020-05-12] MEDS: PANTOPRAZOLE 40 MG TABLET.DR. PO SCH (08:51)
[2020-05-12] MEDS: ISOSORBIDE MONONITRATE ER 30 MG TAB.ER.24H PO SCH (08:51)
[2020-05-12] MEDS: HYDROcodone/APAP 10/325 1 TAB TABLET PO PRN ×3 (08:52→21:02)
[2020-05-12] MEDS: LIDOCAINE (700MG/PATCH) PATCH. TD SCH (08:52)
[2020-05-12] MEDS: FLUTICASONE 50MCG/NASAL SPRAY 16GM BOTTLE. NS SCH (08:52)
[2020-05-12] MEDS: NYSTATIN TOPICAL POWDER 15GM BOTTLE. TP SCH ×2 (08:52→21:02)
[2020-05-12] MEDS: PSYLLIUM HUSK (SUGAR FREE) 1 PKT PACKET PO SCH (08:53)
[2020-05-12] MEDS: SENNOSIDES/DOCUSATE 8.6/50MG TABLET. PO SCH ×2 (08:53→21:02)
[2020-05-12] MEDS: BISACODYL 5 MG TABLET.DR. PO SCH (08:53)
[2020-05-12 10:15] VITALS: BP 147/96
--- NOTE | 2020-05-12 10:45 | PDOC ---
PROGRESS NOTES Subjective Subjective No new complaints. Objective Objective Vital Signs Date Time Temp Pulse Resp B/P (MAP) Pulse Ox O2 Delivery O2 Flow Rate FiO2 05/12/20 10:15 98.2 61 18 147/96 (113) 93 Room Air 98.2 Intake and Output 05/12/20 07:00 Intake Total 300 ml Output Total 1250 ml Balance -950 ml Intake Oral 300 ml Output Urine Total 1250 ml Physical Exam Physical Exam He continues with low back pain with movement and he required 2 person assistance for transfers yesterday with physical therapy. Assessment Assessment Problems Medical Problems: (1) SONIYA (acute kidney injury) Status: Acute (2) Urinary tract infection Status: Acute Plan Plan of Care To get him up as tolerated and to home with home health when he feels comfortable to get up and walk to bathroom with roller walker,or otherwise to SNF for continued car when medically stable. Acute rehab intensive therapy is a real torture for him. Comment Review of Relevant I have reviewed the following items mj (where applicable) has been applied. Labs Laboratory Tests Test 05/10/20 11:57 05/10/20 16:50 05/10/20 20:41 05/11/20 06:18 Glucose (Fingerstick) 169 mg/dL (70-99) 165 mg/dL (70-99) 180 mg/dL (70-99) Sodium Level 140 mmol/L (136-145) Potassium Level 4.5 mmol/L (3.5-5.1) Chloride Level 106 mmol/L (98-107) Carbon Dioxide Level 24 mmol/L (21-32) Anion Gap 10 (6-14) Blood Urea Nitrogen 41 mg/dL (8-26) Creatinine 1.9 mg/dL (0.7-1.3) Estimated GFR (Cockcroft-Gault) 35.5 Glucose Level 184 mg/dL (70-99) Calcium Level 8.2 mg/dL (8.5-10.1) Test 05/11/20 07:28 05/11/20 11:43 05/11/20 16:57 05/11/20 21:03 Glucose (Fingerstick) 158 mg/dL (70-99) 173 mg/dL (70-99) 205 mg/dL (70-99) 180 mg/dL (70-99) Test 7/11/20 04:00 05/12/20 07:08 Sodium Level 139 mmol/L (136-145) Potassium Level 4.4 mmol/L (3.5-5.1) Chloride Level 101 mmol/L (98-107) Carbon Dioxide Level 31 mmol/L (21-32) Anion Gap 7 (6-14) Blood Urea Nitrogen 24 mg/dL (8-26) Creatinine 1.2 mg/dL (0.7-1.3) Estimated GFR (Cockcroft-Gault) 60.4 Glucose Level 106 mg/dL (70-99) Calcium Level 7.7 mg/dL (8.5-10.1) Glucose (Fingerstick) 147 mg/dL (70-99) Laboratory Tests Test 05/11/20 11:43 05/11/20 16:57 05/11/20 21:03 05/12/20 04:00 Glucose (Fingerstick) 173 mg/dL (70-99) 205 mg/dL (70-99) 180 mg/dL (70-99) Sodium Level 139 mmol/L (136-145) Potassium Level 4.4 mmol/L (3.5-5.1) Chloride Level 101 mmol/L (98-107) Carbon Dioxide Level 31 mmol/L (21-32) Anion Gap 7 (6-14) Blood Urea Nitrogen 24 mg/dL (8-26) Creatinine 1.2 mg/dL (0.7-1.3) Estimated GFR (Cockcroft-Gault) 60.4 Glucose Level 106 mg/dL (70-99) Calcium Level 7.7 mg/dL (8.5-10.1) Test 05/12/20 07:08 Glucose (Fingerstick) 147 mg/dL (70-99) Medications Current Medications Lidocaine (Lidoderm) 1 patch DAILY TD Last administered on 05/12/20at 08:52; Start 05/10/20 at 09:00 Lidocaine (Lidoderm) 1 patch STK-MED ONCE .ROUTE ; Start 05/09/20 at 17:58; Stop 05/09/20 at 17:58; Status DC Acetaminophen (Tylenol) 1,000 mg 1X ONCE PO Last administered on 05/09/20at 18:28; Start 05/09/20 at 18:15; Stop 05/09/20 at 18:21; Status DC Ceftriaxone Sodium (Rocephin) 1 gm 1X ONCE IVP Last administered on 05/09/20 18:28; Start 05/09/20 at 18:15; Stop 05/09/20 at 18:21; Status DC Acetaminophen/ Hydrocodone Bitart (Lortab 5/325) 1 tab 1X ONCE PO Last administered on 05/09/20 21:00; Start 05/09/20 at 21:00; Stop 05/09/20 at 21:04; Status DC Acetaminophen/ Hydrocodone Bitart (Lortab 5/325) 1 tab PRN Q4HRS PRN PO MODERATE PAIN 4-6 Last administered on 05/11/20 21:28; Start 05/10/20 at 00:15 Allopurinol (Zyloprim) 100 mg DAILY PO Last administered on 05/12/20 08:50; Start 05/10/20 at 10:00 Aspirin (Ecotrin) 81 mg DAILY PO Last administered on 05/12/20 08:50; Start 05/10/20 at 09:30 Atorvastatin Calcium (Lipitor) 20 mg DAILY PO Last administered on 05/12/20 08:49; Start 05/10/20 at 10:00 Clopidogrel Bisulfate (Plavix) 75 mg DAILY PO Last administered on 05/12/20 08:50; Start 05/10/20 at 10:00 Ferrous Sulfate (Feosol) 325 mg DAILY PO Last administered on 05/12/20 08:50; Start 05/10/20 at 10:00 Fluticasone Propionate (Flonase) 2 spray DAILY NS Last administered on 05/12/20 08:52; Start 05/10/20 at 10:00 Isosorbide Mononitrate (Imdur) 60 mg DAILY PO Last administered on 05/12/20 08:51; Start 05/10/20 at 10:00 Pantoprazole Sodium (Protonix) 40 mg DAILY PO Last administered on 05/12/20 08:51; Start 05/10/20 at 10:00 Tamsulosin HCl (Flomax) 0.4 mg HS PO Last administered on 05/11/20 21:28; Start 05/10/20 at 21:00 Tizanidine HCl (Zanaflex) 4 mg QHS PO Last administered on 05/11/20 21:28; Start 05/10/20 at 21:00 Ascorbic Acid (Vitamin C) 1,000 mg DAILY PO Last administered on 05/12/20 08:50; Start 05/11/20 at 10:00 Cetirizine HCl (ZyrTEC) 10 mg DAILY PO Last administered on 05/12/20 08:50; Start 05/10/20 at 10:00 Lubiprostone (Amitiza) 24 mcg BIDWMEALS PO Last administered on 05/12/20at 08:50; Start 05/10/20 at 17:00 Metoprolol Succinate (Toprol Xl) 50 mg DAILY PO Last administered on 05/12/20 08:50; Start 05/10/20 at 10:00 Multivitamins (Thera M Plus) 1 tab DAILY PO Last administered on 05/12/20 08:50; Start 05/10/20 at 10:00 Insulin Human Lispro (HumaLOG) 0-7 UNITS TIDACHC SQ Last administered on 05/11/20at 17:21; Start 05/10/20 at 11:30 Dextrose (Dextrose 50%-Water Syringe) 12.5 gm PRN Q15MIN PRN IV SEE COMMENTS; Start 05/10/20 at 09:00 Ceftriaxone Sodium (Rocephin) 1 gm Q24H IVP Last administered on 05/11/20at 17:08; Start 05/10/20 at 18:00 Nystatin (Nystop) 1 jose miguel BID TP Last administered on 05/12/20at 08:52; Start 05/10/20 at 12:45 Methylprednisolone Acetate (DEPO-Medrol 40MG VIAL) 40 mg 1X ONCE IM Last administered on 05/10/20at 14:23; Start 05/10/20 at 13:45; Stop 05/10/20 at 13:46; Status DC Bupivacaine HCl (Sensorcaine-Mpf 0.25%) 10 ml 1X ONCE IJ Last administered on 05/10/20at 13:45; Start 05/10/20 at 13:45; Stop 05/10/20 at 13:46; Status DC Acetaminophen/ Hydrocodone Bitart (Lortab 10/325) 1 tab PRN Q6HRS PRN PO SEVERE PAIN 7-10 Last administered on 05/12/20at 08:52; Start 05/10/20 at 14:00 Bisacodyl (Dulcolax Tab) 10 mg DAILY PO ; Start 05/11/20 at 10:00 Senna/Docusate Sodium (Senna Plus) 1 tab BID PO Last administered on 05/11/20at 21:27; Start 05/11/20 at 10:00 Hydralazine HCl (Apresoline Inj) 10 mg PRN Q4HRS PRN IVP ELEVATED BP, SEE COMMENTS; Start 05/11/20 at 11:15 Psyllium Hydrophilic Mucilloid (Metamucil Fiber Packet) 1 pkt DAILY PO ; Start 05/11/20 at 12:00 Lactobacillus Rhamnosus (Culturelle) 1 cap BID PO Last administered on 05/12/20at 08:50; Start 05/11/20 at 21:00 Heparin Sodium (Porcine) (Heparin Sodium) 5,000 unit Q8HRS SQ Last administered on 05/12/20at 06:25; Start 05/11/20 at 16:45 Active Scripts Active Aspirin Ec (Aspirin) 81 Mg Tablet.dr 1 Tab PO DAILY Reported Flomax (Tamsulosin Hcl) 0.4 Mg Cap.er.24h 1 Cap PO HS Fluticasone Propionate Nasal [place] (Fluticasone Propionate) 16 Gm [place].susp 2 [place] NS DAILY Klor-Con M20 (Potassium Chloride) 20 Meq Tab.er.prt 20 Meq PO HS Linzess (Linaclotide) 145 Mcg Capsule 145 Mcg PO 3X/WEEK Fexofenadine Hcl 180 Mg Tablet 1 Tab PO DAILY Potassium Gluconate 99 Mg Tablet 99 Mg PO DAILY Vitamin C (Ascorbic Acid) 500 Mg Capsule.er 1,000 Mg PO DAILY One Daily For Men Tablet (Multivits-Minerals/Fa/Lycopene) 1 Each Tablet 1 Tab PO DAILY 30 Days Iron (Ferrous Sulfate) 325 Mg Tablet 65 Mg PO DAILY Metformin Hcl 1,000 Mg Tablet 1,000 Mg PO BIDWMEALS Allopurinol 300 Mg Tablet 1 Tab PO DAILY Lisinopril 40 Mg Tablet 1 Tab PO BID Vitamin D2 (Ergocalciferol (Vitamin D2)) 50,000 Unit Capsule 50,000 Unit PO WEEKLY Dose given on the Take on Pantoprazole Sodium (Pantoprazole Sodium) 40 Mg Tablet.dr 1 Tab PO DAILY Gave this morning take tomorrow morning Tizanidine Hcl 4 Mg Tablet 1 Tab PO QHS Gave dose last night Take tonight before bedtime Vascepa (Icosapent Ethyl) 1 Gm Capsule 1 Gm PO Not given on this admission Take as previoulsy instructed Atorvastatin Calcium 20 Mg Tablet 1 Tab PO DAILY Gave last night Take tonight Clopidogrel (Clopidogrel Bisulfate) 75 Mg Tablet 1 Tab PO DAILY Gave this morning take tomorrow morning Isosorbide Mononitrate Er (Isosorbide Mononitrate) 30 Mg Tab.er.24h 60 Mg PO DAILY Gave this morning take tomorrow morning Furosemide 40 Mg Tablet 1 Tab PO DAILY Gave this morning take tomorrow morning Repaglinide 1 Mg Tablet 1 Mg PO Not given on this admission Continue as previously instructed Toprol Xl (Metoprolol Succinate) 50 Mg Tab.er.24h 1 Tab PO DAILY Gave this morning take tomorrow morning Vitals/I & O Vital Sign - Last 24 Hours 05/11/20 05/11/20 05/11/20 05/11/20 11:00 12:14 13:14 15:00 Temp 98.0 97.6 98.0 97.6 Pulse 77 60 Resp 18 B/P (MAP) 127/63 (84) 118/56 (76) Pulse Ox 95 95 O2 Delivery BiPAP/CPAP Room Air Room Air BiPAP/CPAP 05/11/20 05/11/20 05/11/20 05/11/20 19:00 19:50 21:28 22:40 Temp 98.0 98.0 Pulse 97 Resp 16 16 18 B/P (MAP) 131/66 (87) Pulse Ox 97 O2 Delivery BiPAP/CPAP Room Air Room Air Room Air 05/11/20 05/12/20 05/12/20 05/12/20 23:00 02:47 07:02 08:00 Temp 97.8 97.7 97.8 97.8 97.7 97.8 Pulse 91 56 60 Resp 17 18 18 B/P (MAP) 140/60 (86) 140/73 (95) 138/73 (94) Pulse Ox 97 97 97 O2 Delivery BiPAP/CPAP BiPAP/CPAP BiPAP/CPAP Room Air 05/12/20 05/12/20 05/12/20 05/12/20 08:50 08:51 08:52 10:15 Temp 98.2 98.2 Pulse 60 60 61 Resp 18 B/P (MAP) 138/73 138/73 147/96 (113) Pulse Ox 93 O2 Delivery Room Air Room Air Intake and Output 05/11/20 05/11/20 05/12/20 15:00 23:00 07:00 Intake Total 300 ml 0 ml Output Total 400 ml 850 ml Balance -100 ml -850 ml 0 ml Justicifation of Admission Dx: Justifications for Admission: Justification of Admission Dx: Yes SHANTANU SOLORIO MD May 12, 2020 10:45
[2020-05-12 14:22] VITALS: BP 147/66
[2020-05-12] MEDS ORDERED: POLYETHYLENE GLYCOL 3350 17 GM PACKET. PO PRN (15:00)
--- NOTE | 2020-05-12 15:06 | PDOC ---
PROGRESS NOTES Chief Complaint Chief Complaint A/P: Fall - unable to walk, has intractable left lower back pain, h/o SI joint injection. Will consult PT and PMR physician Dysuria - UTI in male, has been on cipro in the past month, recently seen by Dr. Lamas, started on BPH meds. Will cont rocephin, f/u culture results BPH - cont meds Panniculitis - with prior balanitis, will use topical nystatin powder. Cont rocephin CAD - past stent, clinically stable HTN - controlled Morbid obesity with SUSANA: CPAP at home DM2 - sliding scale SONIYA on CKD - Cr down to 1.2 from 1.9. This was certainly vasomotor nephropathy FEN - Cardiac PPX - heparin FULL CODE Dispo - inpatient History of Present Illness History of Present Illness Mr Drake is a 69 yo M w/ PMHx CAD s/p stents, DM2, GERD, HLD, HTN, chronic back pain, constipation, and recent diagnosis of BPH who presents with generalized weakness for 2 days. Patient reports that he is being treated for urinary tract infection but when he and his reduce his medications they are actually finasteride and tamsulosin. Patient reports that he was trying to get out of bed and ambulate with his walker when he fell due to his weakness on 05/09/2020, he thinks his left SI joint is in some of the worst pain of his life. He denies hitting his head or any loss of consciousness. Patient is reporting dysuria and frequency but reports that he does have urinary frequency due to his Lasix. He also notes some right lower quadrant abdominal pain and has red inflamed pannus. Patient is also reporting a cough, increasing shortness of breath worse with exertion, nausea and vomiting, fever, but has been afebrile here and chest x-ray was clear. Patient denies any abdominal pain, dizziness, focal deficit, or chest pain. He reports that he has chronic diarrhea. He is unable to stand with me Labs significant for WBC 10.4 Hb 13.8 BUN 47 creatinine 2.3 UA positive for blood and leukocyte esterase lactate 2.6 mag 1.7 albumin 3.1. Admitted for further care. 05/11: S/p left SI joint injection with some improvement. Cr down to 1.9. Still with pain and weakness. Able to stand today for a few seconds. CR down to 1.2. He tells me pain is 1 out of 10 in his left SI joint but he never knows when he may trigger. He has yet to have a BM has not been out of bed yet today. He and his refused acute rehab have requested home with home health. Plan: Monitor renal function. Repeat PT prior to discharge home Increase bowel regimen Vitals Vitals Vital Signs Date Time Temp Pulse Resp B/P (MAP) Pulse Ox O2 Delivery O2 Flow Rate FiO2 05/12/20 14:22 98.1 60 18 147/66 (93) 95 Room Air 98.1 Physical Exam General: Alert, Oriented X3, Cooperative, moderate distress Lungs: Clear Abdomen: Normal bowel sounds, Soft, No tenderness, No hepatosplenomegaly, No masses Extremities: No clubbing, No cyanosis, No edema, Normal pulses, No tenderness/swelling Skin: Other (Panniculitis) Labs LABS Laboratory Tests Test 05/11/20 16:57 05/11/20 21:03 05/12/20 04:00 05/12/20 07:08 Glucose (Fingerstick) 205 mg/dL (70-99) 180 mg/dL (70-99) 147 mg/dL (70-99) Sodium Level 139 mmol/L (136-145) Potassium Level 4.4 mmol/L (3.5-5.1) Chloride Level 101 mmol/L (98-107) Carbon Dioxide Level 31 mmol/L (21-32) Anion Gap 7 (6-14) Blood Urea Nitrogen 24 mg/dL (8-26) Creatinine 1.2 mg/dL (0.7-1.3) Estimated GFR (Cockcroft-Gault) 60.4 Glucose Level 106 mg/dL (70-99) Calcium Level 7.7 mg/dL (8.5-10.1) Test 05/12/20 11:17 Glucose (Fingerstick) 152 mg/dL (70-99) Assessment and Plan Assessmemt and Plan Problems Medical Problems: (1) SONIYA (acute kidney injury) Status: Acute (2) Urinary tract infection Status: Acute Comment Review of Relevant I have reviewed the following items jm (where applicable) has been applied. Labs Laboratory Tests Test 05/10/20 16:50 05/10/20 20:41 05/11/20 06:18 05/11/20 07:28 Glucose (Fingerstick) 165 mg/dL (70-99) 180 mg/dL (70-99) 158 mg/dL (70-99) Sodium Level 140 mmol/L (136-145) Potassium Level 4.5 mmol/L (3.5-5.1) Chloride Level 106 mmol/L (98-107) Carbon Dioxide Level 24 mmol/L (21-32) Anion Gap 10 (6-14) Blood Urea Nitrogen 41 mg/dL (8-26) Creatinine 1.9 mg/dL (0.7-1.3) Estimated GFR (Cockcroft-Gault) 35.5 Glucose Level 184 mg/dL (70-99) Calcium Level 8.2 mg/dL (8.5-10.1) Test 05/11/20 11:43 05/11/20 16:57 05/11/20 21:03 05/12/20 04:00 Glucose (Fingerstick) 173 mg/dL (70-99) 205 mg/dL (70-99) 180 mg/dL (70-99) Sodium Level 139 mmol/L (136-145) Potassium Level 4.4 mmol/L (3.5-5.1) Chloride Level 101 mmol/L (98-107) Carbon Dioxide Level 31 mmol/L (21-32) Anion Gap 7 (6-14) Blood Urea Nitrogen 24 mg/dL (8-26) Creatinine 1.2 mg/dL (0.7-1.3) Estimated GFR (Cockcroft-Gault) 60.4 Glucose Level 106 mg/dL (70-99) Calcium Level 7.7 mg/dL (8.5-10.1) Test 05/12/20 07:08 05/12/20 11:17 Glucose (Fingerstick) 147 mg/dL (70-99) 152 mg/dL (70-99) Laboratory Tests Test 05/11/20 16:57 05/11/20 21:03 05/12/20 04:00 05/12/20 07:08 Glucose (Fingerstick) 205 mg/dL (70-99) 180 mg/dL (70-99) 147 mg/dL (70-99) Sodium Level 139 mmol/L (136-145) Potassium Level 4.4 mmol/L (3.5-5.1) Chloride Level 101 mmol/L (98-107) Carbon Dioxide Level 31 mmol/L (21-32) Anion Gap 7 (6-14) Blood Urea Nitrogen 24 mg/dL (8-26) Creatinine 1.2 mg/dL (0.7-1.3) Estimated GFR (Cockcroft-Gault) 60.4 Glucose Level 106 mg/dL (70-99) Calcium Level 7.7 mg/dL (8.5-10.1) Test 05/12/20 11:17 Glucose (Fingerstick) 152 mg/dL (70-99) Medications Current Medications Lidocaine (Lidoderm) 1 patch DAILY TD Last administered on 05/12/20at 08:52; Start 05/10/20 at 09:00 Lidocaine (Lidoderm) 1 patch [facility] ONCE .ROUTE ; Start 05/09/20 at 17:58; Stop 05/09/20 at 17:58; Status DC Acetaminophen (Tylenol) 1,000 mg 1X ONCE PO Last administered on 05/09/20at 18:28; Start 05/09/20 at 18:15; Stop 05/09/20 at 18:21; Status DC Ceftriaxone Sodium (Rocephin) 1 gm 1X ONCE IVP Last administered on 05/09/20at 18:28; Start 05/09/20 at 18:15; Stop 05/09/20 at 18:21; Status DC Acetaminophen/ Hydrocodone Bitart (Lortab 5/325) 1 tab 1X ONCE PO Last administered on 05/09/20at 21:00; Start 05/09/20 at 21:00; Stop 05/09/20 at 21:04; Status DC Acetaminophen/ Hydrocodone Bitart (Lortab 5/325) 1 tab PRN Q4HRS PRN PO MODERATE PAIN 4-6 Last administered on 05/11/20at 21:28; Start 05/10/20 at 00:15 Allopurinol (Zyloprim) 100 mg DAILY PO Last administered on 05/12/20at 08:50; Start 05/10/20 at 10:00 Aspirin (Ecotrin) 81 mg DAILY PO Last administered on 05/12/20at 08:50; Start 05/10/20 at 09:30 Atorvastatin Calcium (Lipitor) 20 mg DAILY PO Last administered on 05/12/20at 08:49; Start 05/10/20 at 10:00 Clopidogrel Bisulfate (Plavix) 75 mg DAILY PO Last administered on 05/12/20 08:50; Start 05/10/20 at 10:00 Ferrous Sulfate (Feosol) 325 mg DAILY PO Last administered on 05/12/20 08:50; Start 05/10/20 at 10:00 Fluticasone Propionate (Flonase) 2 spray DAILY NS Last administered on 05/12 08:52; Start 05/10/20 at 10:00 Isosorbide Mononitrate (Imdur) 60 mg DAILY PO Last administered on 05/12/20 08:51; Start 05/10/20 at 10:00 Pantoprazole Sodium (Protonix) 40 mg DAILY PO Last administered on 05/12/20 08:51; Start 05/10/20 at 10:00 Tamsulosin HCl (Flomax) 0.4 mg HS PO Last administered on 05/11/20 21:28; Start 05/10/20 at 21:00 Tizanidine HCl (Zanaflex) 4 mg QHS PO Last administered on 05/11/20 21:28; Start 05/10/20 at 21:00 Ascorbic Acid (Vitamin C) 1,000 mg DAILY PO Last administered on 05/12/20 08:50; Start 05/11/20 at 10:00 Cetirizine HCl (ZyrTEC) 10 mg DAILY PO Last administered on 05/12/20 08:50; Start 05/10/20 at 10:00 Lubiprostone (Amitiza) 24 mcg BIDWMEALS PO Last administered on 05/12/20 08:50; Start 05/10/20 at 17:00 Metoprolol Succinate (Toprol Xl) 50 mg DAILY PO Last administered on 05/12/20 08:50; Start 05/10/20 at 10:00 Multivitamins (Thera M Plus) 1 tab DAILY PO Last administered on 05/12/20 08:50; Start 05/10/20 at 10:00 Insulin Human Lispro (HumaLOG) 0-7 UNITS TIDACHC SQ Last administered on 05/12/20 12:11; Start 05/10/20 at 11:30 Dextrose (Dextrose 50%-Water Syringe) 12.5 gm PRN Q15MIN PRN IV SEE COMMENTS; Start 05/10/20 at 09:00 Ceftriaxone Sodium (Rocephin) 1 gm Q24H IVP Last administered on 05/11/20at 17:08; Start 05/10/20 at 18:00 Nystatin (Nystop) 1 jose miguel BID TP Last administered on 05/12/20at 08:52; Start 05/10/20 at 12:45 Methylprednisolone Acetate (DEPO-Medrol 40MG VIAL) 40 mg 1X ONCE IM Last administered on 05/10/20at 14:23; Start 05/10/20 at 13:45; Stop 05/10/20 at 13:46; Status DC Bupivacaine HCl (Sensorcaine-Mpf 0.25%) 10 ml 1X ONCE IJ Last administered on 05/10/20at 13:45; Start 05/10/20 at 13:45; Stop 05/10/20 at 13:46; Status DC Acetaminophen/ Hydrocodone Bitart (Lortab 10/325) 1 tab PRN Q6HRS PRN PO SEVERE PAIN 7-10 Last administered on 05/12/20at 08:52; Start 05/10/20 at 14:00 Bisacodyl (Dulcolax Tab) 10 mg DAILY PO ; Start 05/11/20 at 10:00 Senna/Docusate Sodium (Senna Plus) 1 tab BID PO Last administered on 05/11/20at 21:27; Start 05/11/20 at 10:00 Hydralazine HCl (Apresoline Inj) 10 mg PRN Q4HRS PRN IVP ELEVATED BP, SEE COMMENTS; Start 05/11/20 at 11:15 Psyllium Hydrophilic Mucilloid (Metamucil Fiber Packet) 1 pkt DAILY PO ; Start 05/11/20 at 12:00 Lactobacillus Rhamnosus (Culturelle) 1 cap BID PO Last administered on 05/12/20at 08:50; Start 05/11/20 at 21:00 Heparin Sodium (Porcine) (Heparin Sodium) 5,000 unit Q8HRS SQ Last administered on 05/12/20at 14:05; Start 05/11/20 at 16:45 Active Scripts Active Aspirin Ec (Aspirin) 81 Mg Tablet.dr 1 Tab PO DAILY Reported Flomax (Tamsulosin Hcl) 0.4 Mg Cap.er.24h 1 Cap PO HS Fluticasone Propionate Nasal [place] (Fluticasone Propionate) 16 Gm [place].susp 2 [place] NS DAILY Klor-Con M20 (Potassium Chloride) 20 Meq Tab.er.prt 20 Meq PO HS Linzess (Linaclotide) 145 Mcg Capsule 145 Mcg PO 3X/WEEK Fexofenadine Hcl 180 Mg Tablet 1 Tab PO DAILY Potassium Gluconate 99 Mg Tablet 99 Mg PO DAILY Vitamin C (Ascorbic Acid) 500 Mg Capsule.er 1,000 Mg PO DAILY One Daily For Men Tablet (Multivits-Minerals/Fa/Lycopene) 1 Each Tablet 1 Tab PO DAILY 30 Days Iron (Ferrous Sulfate) 325 Mg Tablet 65 Mg PO DAILY Metformin Hcl 1,000 Mg Tablet 1,000 Mg PO BIDWMEALS Allopurinol 300 Mg Tablet 1 Tab PO DAILY Lisinopril 40 Mg Tablet 1 Tab PO BID Vitamin D2 (Ergocalciferol (Vitamin D2)) 50,000 Unit Capsule 50,000 Unit PO WEEKLY Dose given on the Take on Pantoprazole Sodium (Pantoprazole Sodium) 40 Mg Tablet.dr 1 Tab PO DAILY Gave this morning take tomorrow morning Tizanidine Hcl 4 Mg Tablet 1 Tab PO QHS Gave dose last night Take tonight before bedtime Vascepa (Icosapent Ethyl) 1 Gm Capsule 1 Gm PO Not given on this admission Take as previoulsy instructed Atorvastatin Calcium 20 Mg Tablet 1 Tab PO DAILY Gave last night Take tonight Clopidogrel (Clopidogrel Bisulfate) 75 Mg Tablet 1 Tab PO DAILY Gave this morning take tomorrow morning Isosorbide Mononitrate Er (Isosorbide Mononitrate) 30 Mg Tab.er.24h 60 Mg PO DAILY Gave this morning take tomorrow morning Furosemide 40 Mg Tablet 1 Tab PO DAILY Gave this morning take tomorrow morning Repaglinide 1 Mg Tablet 1 Mg PO Not given on this admission Continue as previously instructed Toprol Xl (Metoprolol Succinate) 50 Mg Tab.er.24h 1 Tab PO DAILY Gave this morning take tomorrow morning Vitals/I & O Vital Sign - Last 24 Hours 05/11/20 05/11/20 05/11/20 05/11/20 19:00 19:50 21:28 22:40 Temp 98.0 98.0 Pulse 97 Resp 16 16 18 B/P (MAP) 131/66 (87) Pulse Ox 97 O2 Delivery BiPAP/CPAP Room Air Room Air Room Air 05/11/20 05/12/20 05/12/20 05/12/20 23:00 02:47 07:02 08:00 Temp 97.8 97.7 97.8 97.8 97.7 97.8 Pulse 91 56 60 Resp 17 18 18 B/P (MAP) 140/60 (86) 140/73 (95) 138/73 (94) Pulse Ox 97 97 97 O2 Delivery BiPAP/CPAP BiPAP/CPAP BiPAP/CPAP Room Air 05/12/20 05/12/20 05/12/20 05/12/20 08:50 08:51 08:52 09:52 Pulse 60 60 B/P (MAP) 138/73 138/73 O2 Delivery Room Air Room Air 05/12/20 05/12/20 10:15 14:22 Temp 98.2 98.1 98.2 98.1 Pulse 61 60 Resp 18 18 B/P (MAP) 147/96 (113) 147/66 (93) Pulse Ox 93 95 O2 Delivery Room Air Room Air Intake and Output 05/11/20 05/11/20 05/12/20 15:00 23:00 07:00 Intake Total 300 ml 0 ml Output Total 400 ml 850 ml Balance -100 ml -850 ml 0 ml Justicifation of Admission Dx: Justifications for Admission: Justification of Admission Dx: Yes TIMA LEDESMA MD May 12, 2020 15:06
[2020-05-12] MEDS: cefTRIAXone IV Push 1 GM VIAL. IVP SCH (17:19)
[2020-05-12 19:26] VITALS: BP 137/70
[2020-05-12] MEDS: tiZANidine 4 MG TABLET. PO SCH (21:02)
[2020-05-12] MEDS: TAMSULOSIN 0.4 MG CAP.ER.24H. PO SCH (21:02)
[2020-05-12 22:32] VITALS: BP 142/73
--- NOTE | 2020-05-12 23:06 | PDOC ---
CARDIOLOGY PROGRESS NOTE SUBJECTIVE: No new issues. Continues to have pain. OBJECTIVE: Vital Signs/I&O: Vital Signs Date Time Temp Pulse Resp B/P (MAP) Pulse Ox O2 Delivery O2 Flow Rate FiO2 05/12/20 22:32 97.7 74 18 142/73 (96) 97 Room Air 97.7 I & O 05/11/20 05/11/20 05/12/20 15:00 23:00 07:00 Intake Total 300 ml 0 ml Output Total 400 ml 850 ml Balance -100 ml -850 ml 0 ml Objective: morbidly obese NT/ND, +BS Normal heart tones No edema. Obese abd DIAGNOSTIC TESTING: Labs: Laboratory Tests 05/12/20 04:00 Laboratory Tests Test 05/12/20 04:00 05/12/20 07:08 05/12/20 11:17 05/12/20 16:20 Sodium Level 139 mmol/L (136-145) Potassium Level 4.4 mmol/L (3.5-5.1) Chloride Level 101 mmol/L (98-107) Carbon Dioxide Level 31 mmol/L (21-32) Anion Gap 7 (6-14) Blood Urea Nitrogen 24 mg/dL (8-26) Creatinine 1.2 mg/dL (0.7-1.3) Estimated GFR (Cockcroft-Gault) 60.4 Glucose Level 106 mg/dL (70-99) H Calcium Level 7.7 mg/dL (8.5-10.1) L Glucose (Fingerstick) 147 mg/dL (70-99) H 152 mg/dL (70-99) H 165 mg/dL (70-99) H Test 05/12/20 20:47 Glucose (Fingerstick) 156 mg/dL (70-99) H ASSESSMENT: 1. Weakness with mechanical fall. Now with intractable lower back pain. Dr. Dunaway following 2. CAD: PCI/stent x2 in 2012, clinically stable 3. Hypertension; controlled 4. Hyperlipiemia; statin 5. Diabetes, II 6. SONIYA on CKD; Cr down to 1.9 7. Hypomagnesemia; resolved 8. Morbid obesity. SUSANA with CPAP 9. UTI, low-grade fevers. 10. BPH 11. Chronic diastolic CHF: compensated PLAN: 1> continue supportive care. No new issues. Justicifation of Admission Dx: Justifications for Admission: Justification of Admission Dx: Yes TESSA MCLAUGHLIN MD May 12, 2020 23:06
[2020-05-13 02:44] VITALS: BP 139/72
[2020-05-13] MEDS: HYDROcodone/APAP 10/325 1 TAB TABLET PO PRN ×3 (04:22→17:18)
[2020-05-13] MEDS: HEPARIN for SUB-Q USE 5,000 UNIT/ML VIAL. SQ SCH ×3 (05:38→21:19)
[2020-05-13 06:58] VITALS: BP 150/71
[2020-05-13] MEDS: CLOPIDOGREL BISULFATE 75 MG TABLET PO SCH (08:10)
[2020-05-13] MEDS: ASCORBIC ACID 500 MG TABLET PO SCH (08:10)
[2020-05-13] MEDS: ISOSORBIDE MONONITRATE ER 30 MG TAB.ER.24H PO SCH (08:10)
[2020-05-13] MEDS: CETIRIZINE HCL 10 MG TABLET. PO SCH (08:10)
[2020-05-13] MEDS: BISACODYL 5 MG TABLET.DR. PO SCH (08:10)
[2020-05-13] MEDS: LUBIPROSTONE 24 MCG CAPSULE PO SCH ×2 (08:10→17:18)
[2020-05-13] MEDS: ATORVASTATIN CALCIUM 20 MG TABLET PO SCH (08:11)
[2020-05-13] MEDS: PANTOPRAZOLE 40 MG TABLET.DR. PO SCH (08:11)
[2020-05-13] MEDS: ALLOPURINOL 100 MG TABLET. PO SCH (08:11)
[2020-05-13] MEDS: FLUTICASONE 50MCG/NASAL SPRAY 16GM BOTTLE. NS SCH (08:11)
[2020-05-13] MEDS: FERROUS SULFATE 325 MG TABLET. PO SCH (08:11)
[2020-05-13] MEDS: PSYLLIUM HUSK (SUGAR FREE) 1 PKT PACKET PO SCH (08:11)
[2020-05-13] MEDS: ASPIRIN ENTERIC COATED 81 MG TABLET.DR. PO SCH (08:11)
[2020-05-13] MEDS: MULTIVITAMIN with MINERAL TABLET. PO SCH (08:11)
[2020-05-13] MEDS: LACTOBACILLUS RHAMNOSUS GG 1 CAPSULE. PO SCH ×2 (08:11→21:14)
[2020-05-13] MEDS: METOPROLOL SUCC 24HR ER 50 MG TAB.ER.24H. PO SCH (08:11)
[2020-05-13] MEDS: LIDOCAINE (700MG/PATCH) PATCH. TD SCH (08:12)
[2020-05-13] MEDS: NYSTATIN TOPICAL POWDER 15GM BOTTLE. TP SCH ×2 (08:12→21:14)
[2020-05-13] MEDS: INSULIN LISPRO 300 UNITS/3 ML VIAL. SQ SCH ×4 (08:23→21:20)
[2020-05-13] MEDS: SENNOSIDES/DOCUSATE 8.6/50MG TABLET. PO SCH ×2 (09:00→21:14)
[2020-05-13 10:17] VITALS: BP 141/69
[2020-05-13] MEDS ORDERED: LACTULOSE 20 GM/30 ML SOLUTION. PO PRN (13:30)
[2020-05-13] MEDS ORDERED: AMOX1TAB58 PO (13:33)
--- NOTE | 2020-05-13 13:33 | PDOC ---
PROGRESS NOTES Chief Complaint Chief Complaint A/P: Fall - unable to walk, has intractable left lower back pain, h/o SI joint injection. Will consult PT and PMR physician UTI in male - has been on cipro in the past month, recently seen by Dr. Lamas, started on BPH meds. E. coli and Klebsiella pneumonia in urine greater than 100,000 CFU. Sensitive to Augmentin and Rocephin, resistant to cipro. Will cont rocephin and d/c home on 10 days augmentin BID BPH - cont meds Panniculitis - with prior balanitis, will use topical nystatin powder. Cont rocephin CAD - past stent, clinically stable HTN - controlled Morbid obesity with SUSANA: CPAP at home DM2 - sliding scale SONIYA on CKD - Cr down to 1.2 from 1.9. This was certainly vasomotor nephropathy FEN - Cardiac PPX - heparin FULL CODE Dispo - inpatient History of Present Illness History of Present Illness Mr Drake is a 69 yo M w/ PMHx CAD s/p stents, DM2, GERD, HLD, HTN, chronic back pain, constipation, and recent diagnosis of BPH who presents with generalized weakness for 2 days. Patient reports that he is being treated for urinary tract infection but when he and his reduce his medications they are actually finasteride and tamsulosin. Patient reports that he was trying to get out of bed and ambulate with his walker when he fell due to his weakness on 05/09/2020, he thinks his left SI joint is in some of the worst pain of his life. He denies hitting his head or any loss of consciousness. Patient is reporting dysuria and frequency but reports that he does have urinary frequency due to his Lasix. He also notes some right lower quadrant abdominal pain and has red inflamed pannus. Patient is also reporting a cough, increasing shortness of breath worse with exertion, nausea and vomiting, fever, but has been afebrile here and chest x-ray was clear. Patient denies any abdominal pain, dizziness, focal deficit, or chest pain. He reports that he has chronic diarrhea. He is unable to stand with me Labs significant for WBC 10.4 Hb 13.8 BUN 47 creatinine 2.3 UA positive for blood and leukocyte esterase lactate 2.6 mag 1.7 albumin 3.1. Admitted for further care. 7/10: S/p left SI joint injection with some improvement. Cr down to 1.9. Still with pain and weakness. Able to stand today for a few seconds. 05/12: CR down to 1.2. He tells me pain is 1 out of 10 in his left SI joint but he never knows when he may trigger. He has yet to have a BM has not been out of bed yet today. He and his refused acute rehab have requested home with home health. Both E. coli and Klebsiella pneumonia in urine greater than 100,000 CFU. Sensitive to Augmentin and Rocephin. Able to sit on the side of the bed today. Still with some left SI joint pain now complaining of left lateral thigh and her left thigh tingling. This improves when he sits up on side of the bed. He has been passing gas but no BM as of yet Plan: Monitor renal function. Repeat PT prior to discharge home Increase bowel regimen Continue Rocephin and will transition to Augmentin 500 mg twice daily for 10 days when he discharges Vitals Vitals Vital Signs Date Time Temp Pulse Resp B/P (MAP) Pulse Ox O2 Delivery O2 Flow Rate FiO2 05/13/20 11:30 Room Air 05/13/20 10:17 97.8 65 18 141/69 (93) 94 97.8 Physical Exam General: Alert, Oriented X3, Cooperative, moderate distress Lungs: Clear Abdomen: Normal bowel sounds, Soft, No tenderness, No hepatosplenomegaly, No masses Extremities: No clubbing, No cyanosis, No edema, Normal pulses, No tenderness/swelling Skin: Other (Panniculitis) Labs LABS Laboratory Tests Test 05/12/20 16:20 05/12/20 20:47 05/13/20 07:02 05/13/20 11:15 Glucose (Fingerstick) 165 mg/dL (70-99) 156 mg/dL (70-99) 159 mg/dL (70-99) 183 mg/dL (70-99) Assessment and Plan Assessmemt and Plan Problems Medical Problems: (1) SONIYA (acute kidney injury) Status: Acute (2) Urinary tract infection Status: Acute Comment Review of Relevant I have reviewed the following items jm (where applicable) has been applied. Labs Laboratory Tests Test 05/11/20 16:57 05/11/20 21:03 7/11/20 04:00 05/12/20 07:08 Glucose (Fingerstick) 205 mg/dL (70-99) 180 mg/dL (70-99) 147 mg/dL (70-99) Sodium Level 139 mmol/L (136-145) Potassium Level 4.4 mmol/L (3.5-5.1) Chloride Level 101 mmol/L (98-107) Carbon Dioxide Level 31 mmol/L (21-32) Anion Gap 7 (6-14) Blood Urea Nitrogen 24 mg/dL (8-26) Creatinine 1.2 mg/dL (0.7-1.3) Estimated GFR (Cockcroft-Gault) 60.4 Glucose Level 106 mg/dL (70-99) Calcium Level 7.7 mg/dL (8.5-10.1) Test 05/12/20 11:17 05/12/20 16:20 05/12/20 20:47 05/13/20 07:02 Glucose (Fingerstick) 152 mg/dL (70-99) 165 mg/dL (70-99) 156 mg/dL (70-99) 159 mg/dL (70-99) Test 05/13/20 11:15 Glucose (Fingerstick) 183 mg/dL (70-99) Laboratory Tests Test 05/12/20 16:20 05/12/20 20:47 05/13/20 07:02 05/13/20 11:15 Glucose (Fingerstick) 165 mg/dL (70-99) 156 mg/dL (70-99) 159 mg/dL (70-99) 183 mg/dL (70-99) Microbiology 05/09/20 Urine Culture - Final, Complete 05/09/20 Antimicrobic Susceptibility - Final, Complete Medications Current Medications Lidocaine (Lidoderm) 1 patch DAILY TD Last administered on 05/12/20at 08:52; Start 05/10/20 at 09:00 Lidocaine (Lidoderm) 1 patch STK-MED ONCE .ROUTE ; Start 05/09/20 at 17:58; Stop 05/09/20 at 17:58; Status DC Acetaminophen (Tylenol) 1,000 mg 1X ONCE PO Last administered on 05/09/20at 18:28; Start 05/09/20 at 18:15; Stop 05/09/20 at 18:21; Status DC Ceftriaxone Sodium (Rocephin) 1 gm 1X ONCE IVP Last administered on 05/09/20 18:28; Start 05/09/20 at 18:15; Stop 05/09/20 at 18:21; Status DC Acetaminophen/ Hydrocodone Bitart (Lortab 5/325) 1 tab 1X ONCE PO Last administered on 05/09/20 21:00; Start 05/09/20 at 21:00; Stop 05/09/20 at 21:04; Status DC Acetaminophen/ Hydrocodone Bitart (Lortab 5/325) 1 tab PRN Q4HRS PRN PO MODERATE PAIN 4-6 Last administered on 05/11/20 21:28; Start 05/10/20 at 00:15 Allopurinol (Zyloprim) 100 mg DAILY PO Last administered on 05/13/20 08:11; Start 05/10/20 at 10:00 Aspirin (Ecotrin) 81 mg DAILY PO Last administered on 05/13/20 08:11; Start 05/10/20 at 09:30 Atorvastatin Calcium (Lipitor) 20 mg DAILY PO Last administered on 05/13/20 08:11; Start 05/10/20 at 10:00 Clopidogrel Bisulfate (Plavix) 75 mg DAILY PO Last administered on 05/13/20 08:10; Start 05/10/20 at 10:00 Ferrous Sulfate (Feosol) 325 mg DAILY PO Last administered on 05/13/20 08:11; Start 05/10/20 at 10:00 Fluticasone Propionate (Flonase) 2 spray DAILY NS Last administered on 05/13/20 08:11; Start 05/10/20 at 10:00 Isosorbide Mononitrate (Imdur) 60 mg DAILY PO Last administered on 05/13/20 08:10; Start 05/10/20 at 10:00 Pantoprazole Sodium (Protonix) 40 mg DAILY PO Last administered on 05/13/20 08:11; Start 05/10/20 at 10:00 Tamsulosin HCl (Flomax) 0.4 mg HS PO Last administered on 05/12/20 21:02; Start 05/10/20 at 21:00 Tizanidine HCl (Zanaflex) 4 mg QHS PO Last administered on 05/12/20 21:02; Start 05/10/20 at 21:00 Ascorbic Acid (Vitamin C) 1,000 mg DAILY PO Last administered on 05/13/20 08:10; Start 05/11/20 at 10:00 Cetirizine HCl (ZyrTEC) 10 mg DAILY PO Last administered on 05/13/20 08:10; Start 05/10/20 at 10:00 Lubiprostone (Amitiza) 24 mcg BIDWMEALS PO Last administered on 05/13/20 08:10; Start 05/10/20 at 17:00 Metoprolol Succinate (Toprol Xl) 50 mg DAILY PO Last administered on 05/13/20 08:11; Start 05/10/20 at 10:00 Multivitamins (Thera M Plus) 1 tab DAILY PO Last administered on 05/13/20 08:11; Start 05/10/20 at 10:00 Insulin Human Lispro (HumaLOG) 0-7 UNITS TIDACHC SQ Last administered on 05/13/20 12:29; Start 05/10/20 at 11:30 Dextrose (Dextrose 50%-Water Syringe) 12.5 gm PRN Q15MIN PRN IV SEE COMMENTS; Start 05/10/20 at 09:00 Ceftriaxone Sodium (Rocephin) 1 gm Q24H IVP Last administered on 05/12/20 17:19; Start 05/10/20 at 18:00 Nystatin (Nystop) 1 jose miguel BID TP Last administered on 05/13/20 08:12; Start 05/10/20 at 12:45 Methylprednisolone Acetate (DEPO-Medrol 40MG VIAL) 40 mg 1X ONCE IM Last administered on 05/10/20at 14:23; Start 05/10/20 at 13:45; Stop 05/10/20 at 13:46; Status DC Bupivacaine HCl (Sensorcaine-Mpf 0.25%) 10 ml 1X ONCE IJ Last administered on 05/10/20at 13:45; Start 05/10/20 at 13:45; Stop 05/10/20 at 13:46; Status DC Acetaminophen/ Hydrocodone Bitart (Lortab 10/325) 1 tab PRN Q6HRS PRN PO SEVERE PAIN 7-10 Last administered on 05/13/20at 10:30; Start 05/10/20 at 14:00 Bisacodyl (Dulcolax Tab) 10 mg DAILY PO Last administered on 05/13/20at 08:10; Start 05/11/20 at 10:00 Senna/Docusate Sodium (Senna Plus) 1 tab BID PO Last administered on 05/12/20at 21:02; Start 05/11/20 at 10:00 Hydralazine HCl (Apresoline Inj) 10 mg PRN Q4HRS PRN IVP ELEVATED BP, SEE COMMENTS; Start 05/11/20 at 11:15 Psyllium Hydrophilic Mucilloid (Metamucil Fiber Packet) 1 pkt DAILY PO Last administered on 05/13/20at 08:11; Start 05/11/20 at 12:00 Lactobacillus Rhamnosus (Culturelle) 1 cap BID PO Last administered on 05/13/20at 08:11; Start 05/11/20 at 21:00 Heparin Sodium (Porcine) (Heparin Sodium) 5,000 unit Q8HRS SQ Last administered on 05/13/20at 05:38; Start 05/11/20 at 16:45 Polyethylene Glycol (miraLAX PACKET) 17 gm PRN BID PRN PO CONSTIPATION Last administered on 05/13/20at 12:19; Start 05/12/20 at 15:00 Active Scripts Active Aspirin Ec (Aspirin) 81 Mg Tablet.dr 1 Tab PO DAILY Reported Flomax (Tamsulosin Hcl) 0.4 Mg Cap.er.24h 1 Cap PO HS Fluticasone Propionate Nasal [place] (Fluticasone Propionate) 16 Gm [place].susp 2 [place] NS DAILY Klor-Con M20 (Potassium Chloride) 20 Meq Tab.er.prt 20 Meq PO HS Linzess (Linaclotide) 145 Mcg Capsule 145 Mcg PO 3X/WEEK Fexofenadine Hcl 180 Mg Tablet 1 Tab PO DAILY Potassium Gluconate 99 Mg Tablet 99 Mg PO DAILY Vitamin C (Ascorbic Acid) 500 Mg Capsule.er 1,000 Mg PO DAILY One Daily For Men Tablet (Multivits-Minerals/Fa/Lycopene) 1 Each Tablet 1 Tab PO DAILY 30 Days Iron (Ferrous Sulfate) 325 Mg Tablet 65 Mg PO DAILY Metformin Hcl 1,000 Mg Tablet 1,000 Mg PO BIDWMEALS Allopurinol 300 Mg Tablet 1 Tab PO DAILY Lisinopril 40 Mg Tablet 1 Tab PO BID Vitamin D2 (Ergocalciferol (Vitamin D2)) 50,000 Unit Capsule 50,000 Unit PO WEEKLY Dose given on the Take on Pantoprazole Sodium (Pantoprazole Sodium) 40 Mg Tablet.dr 1 Tab PO DAILY Gave this morning take tomorrow morning Tizanidine Hcl 4 Mg Tablet 1 Tab PO QHS Gave dose last night Take tonight before bedtime Vascepa (Icosapent Ethyl) 1 Gm Capsule 1 Gm PO Not given on this admission Take as previoulsy instructed Atorvastatin Calcium 20 Mg Tablet 1 Tab PO DAILY Gave last night Take tonight Clopidogrel (Clopidogrel Bisulfate) 75 Mg Tablet 1 Tab PO DAILY Gave this morning take tomorrow morning Isosorbide Mononitrate Er (Isosorbide Mononitrate) 30 Mg Tab.er.24h 60 Mg PO DAILY Gave this morning take tomorrow morning Furosemide 40 Mg Tablet 1 Tab PO DAILY Gave this morning take tomorrow morning Repaglinide 1 Mg Tablet 1 Mg PO Not given on this admission Continue as previously instructed Toprol Xl (Metoprolol Succinate) 50 Mg Tab.er.24h 1 Tab PO DAILY Gave this morning take tomorrow morning Vitals/I & O Vital Sign - Last 24 Hours 05/12/20 05/12/20 05/12/20 05/12/20 14:22 14:55 15:55 19:26 Temp 98.1 98.8 98.1 98.8 Pulse 60 79 Resp 18 18 B/P (MAP) 147/66 (93) 137/70 (92) Pulse Ox 95 94 O2 Delivery Room Air Room Air Room Air Room Air 05/12/20 05/12/20 05/12/20 05/12/20 20:00 21:02 22:02 22:32 Temp 97.7 97.7 Pulse 74 Resp 18 B/P (MAP) 142/73 (96) Pulse Ox 94 94 97 O2 Delivery Room Air Room Air Room Air Room Air 05/13/20 05/13/20 05/13/20 05/13/20 02:44 04:22 05:22 06:58 Temp 98.4 98.0 98.4 98.0 Pulse 85 66 Resp 18 18 B/P (MAP) 139/72 (94) 150/71 (97) Pulse Ox 99 99 99 95 O2 Delivery Room Air Room Air Room Air Room Air 05/13/20 05/13/20 05/13/2012/20 07:42 08:10 08:11 10:17 Temp 97.8 97.8 Pulse 66 66 65 Resp 18 B/P (MAP) 150/71 150/71 141/69 (93) Pulse Ox 94 O2 Delivery Room Air Room Air 05/13/20 05/13/20 10:30 11:30 O2 Delivery Room Air Room Air Intake and Output 05/12/20 05/12/20 05/13/20 15:00 23:00 07:00 Intake Total 500 ml 0 ml Output Total 550 ml 550 ml 900 ml Balance -550 ml -50 ml -900 ml Justicifation of Admission Dx: Justifications for Admission: Justification of Admission Dx: Yes TIMA LEDESMA MD May 13, 2020 13:33
[2020-05-13 14:05] VITALS: BP 138/64
[2020-05-13] MEDS: cefTRIAXone IV Push 1 GM VIAL. IVP SCH (17:18)
[2020-05-13 19:24] VITALS: BP 130/66
[2020-05-13] MEDS: TAMSULOSIN 0.4 MG CAP.ER.24H. PO SCH (21:14)
[2020-05-13] MEDS: tiZANidine 4 MG TABLET. PO SCH (21:14)
[2020-05-13 22:26] VITALS: BP 191/82
[2020-05-14] VITALS (7 sets, daily range): BP systolic 124–207; BP diastolic 57–100
[2020-05-14] MEDS: HYDROcodone/APAP 10/325 1 TAB TABLET PO PRN ×3 (02:56→17:06)
[2020-05-14 05:33] LABS: CALCIUM 8.7 mg/dL (8.5-10.1); CREATININE 1.5 mg/dL (0.7-1.3); GFR 46.7; POTASSIUM 4.2 mmol/L (3.5-5.1)
[2020-05-14] MEDS: HEPARIN for SUB-Q USE 5,000 UNIT/ML VIAL. SQ SCH ×2 (06:02→13:28)
[2020-05-14] MEDS: LACTOBACILLUS RHAMNOSUS GG 1 CAPSULE. PO SCH ×2 (08:29→20:09)
[2020-05-14] MEDS: MULTIVITAMIN with MINERAL TABLET. PO SCH (08:29)
[2020-05-14] MEDS: ASPIRIN ENTERIC COATED 81 MG TABLET.DR. PO SCH (08:29)
[2020-05-14] MEDS: LUBIPROSTONE 24 MCG CAPSULE PO SCH ×2 (08:29→17:05)
[2020-05-14] MEDS: SENNOSIDES/DOCUSATE 8.6/50MG TABLET. PO SCH ×2 (08:29→20:09)
[2020-05-14] MEDS: ALLOPURINOL 100 MG TABLET. PO SCH (08:29)
[2020-05-14] MEDS: ASCORBIC ACID 500 MG TABLET PO SCH (08:30)
[2020-05-14] MEDS: BISACODYL 5 MG TABLET.DR. PO SCH (08:30)
[2020-05-14] MEDS: CLOPIDOGREL BISULFATE 75 MG TABLET PO SCH (08:30)
[2020-05-14] MEDS: PSYLLIUM HUSK (SUGAR FREE) 1 PKT PACKET PO SCH (08:30)
[2020-05-14] MEDS: FERROUS SULFATE 325 MG TABLET. PO SCH (08:30)
[2020-05-14] MEDS: CETIRIZINE HCL 10 MG TABLET. PO SCH (08:30)
[2020-05-14] MEDS: ATORVASTATIN CALCIUM 20 MG TABLET PO SCH ×2 (08:30→20:08)
[2020-05-14] MEDS: ISOSORBIDE MONONITRATE ER 30 MG TAB.ER.24H PO SCH (08:31)
[2020-05-14] MEDS: METOPROLOL SUCC 24HR ER 50 MG TAB.ER.24H. PO SCH (08:31)
[2020-05-14] MEDS: LIDOCAINE (700MG/PATCH) PATCH. TD SCH (08:32)
[2020-05-14] MEDS: FLUTICASONE 50MCG/NASAL SPRAY 16GM BOTTLE. NS SCH (08:32)
[2020-05-14] MEDS: PANTOPRAZOLE 40 MG TABLET.DR. PO SCH (08:37)
[2020-05-14] MEDS: NYSTATIN TOPICAL POWDER 15GM BOTTLE. TP SCH ×2 (08:38→20:09)
[2020-05-14] MEDS: INSULIN LISPRO 300 UNITS/3 ML VIAL. SQ SCH ×4 (08:44→21:00)
--- NOTE | 2020-05-14 09:09 | PDOC ---
PROGRESS NOTES Subjective Subjective No new complaints. Objective Objective Vital Signs Date Time Temp Pulse Resp B/P (MAP) Pulse Ox O2 Delivery O2 Flow Rate FiO2 05/14/20 08:32 96 Room Air 05/14/20 08:31 79 207/100 05/14/20 06:38 97.9 18 97.9 Intake and Output 05/14/20 07:00 Intake Total 1050 ml Output Total 1250 ml Balance -200 ml Intake Oral 1050 ml Output Urine Total 1250 ml # Voids 1 Physical Exam Physical Exam He is alert,supine in bed and does not seem to be in any acute distress and he isgetting up more but still requiring 2 person assistance for transfers. Assessment Assessment Problems Medical Problems: (1) SONIYA (acute kidney injury) Status: Acute (2) Urinary tract infection Status: Acute Plan Plan of Care To SNF for continued care. Comment Review of Relevant I have reviewed the following items jm (where applicable) has been applied. Labs Laboratory Tests Test 05/12/20 11:17 05/12/20 16:20 05/12/20 20:47 05/13/20 07:02 Glucose (Fingerstick) 152 mg/dL (70-99) 165 mg/dL (70-99) 156 mg/dL (70-99) 159 mg/dL (70-99) Test 05/13/20 11:15 05/13/20 16:13 05/13/20 20:50 05/14/20 04:40 Glucose (Fingerstick) 183 mg/dL (70-99) 172 mg/dL (70-99) 170 mg/dL (70-99) Sodium Level 140 mmol/L (136-145) Potassium Level 4.2 mmol/L (3.5-5.1) Chloride Level 104 mmol/L (98-107) Carbon Dioxide Level 25 mmol/L (21-32) Anion Gap 11 (6-14) Blood Urea Nitrogen 30 mg/dL (8-26) Creatinine 1.5 mg/dL (0.7-1.3) Estimated GFR (Cockcroft-Gault) 46.7 Glucose Level 171 mg/dL (70-99) Calcium Level 8.7 mg/dL (8.5-10.1) Test 05/14/20 07:45 Glucose (Fingerstick) 152 mg/dL (70-99) Laboratory Tests Test 05/13/20 11:15 05/13/20 16:13 05/13/20 20:50 05/14/20 04:40 Glucose (Fingerstick) 183 mg/dL (70-99) 172 mg/dL (70-99) 170 mg/dL (70-99) Sodium Level 140 mmol/L (136-145) Potassium Level 4.2 mmol/L (3.5-5.1) Chloride Level 104 mmol/L (98-107) Carbon Dioxide Level 25 mmol/L (21-32) Anion Gap 11 (6-14) Blood Urea Nitrogen 30 mg/dL (8-26) Creatinine 1.5 mg/dL (0.7-1.3) Estimated GFR (Cockcroft-Gault) 46.7 Glucose Level 171 mg/dL (70-99) Calcium Level 8.7 mg/dL (8.5-10.1) Test 05/14/20 07:45 Glucose (Fingerstick) 152 mg/dL (70-99) Microbiology 05/09/20 Urine Culture - Final, Complete 05/09/20 Antimicrobic Susceptibility - Final, Complete Medications Current Medications Lidocaine (Lidoderm) 1 patch DAILY TD Last administered on 05/14/20at 08:32; Start 05/10/20 at 09:00 Lidocaine (Lidoderm) 1 patch STK-MED ONCE .ROUTE ; Start 05/09/20 at 17:58; Stop 05/09/20 at 17:58; Status DC Acetaminophen (Tylenol) 1,000 mg 1X ONCE PO Last administered on 05/09/20at 18:28; Start 05/09/20 at 18:15; Stop 05/09/20 at 18:21; Status DC Ceftriaxone Sodium (Rocephin) 1 gm 1X ONCE IVP Last administered on 05/09/20at 18:28; Start 05/09/20 at 18:15; Stop 05/09/20 at 18:21; Status DC Acetaminophen/ Hydrocodone Bitart (Lortab 5/325) 1 tab 1X ONCE PO Last administered on 05/09/20at 21:00; Start 05/09/20 at 21:00; Stop 05/09/20 at 21:04; Status DC Acetaminophen/ Hydrocodone Bitart (Lortab 5/325) 1 tab PRN Q4HRS PRN PO MODERATE PAIN 4-6 Last administered on 05/11/20 21:28; Start 05/10/20 at 00:15 Allopurinol (Zyloprim) 100 mg DAILY PO Last administered on 05/14/20 08:29; Start 05/10/20 at 10:00 Aspirin (Ecotrin) 81 mg DAILY PO Last administered on 05/14/20 08:29; Start 05/10/20 at 09:30 Atorvastatin Calcium (Lipitor) 20 mg DAILY PO Last administered on 05/14/20 08:30; Start 05/10/20 at 10:00 Clopidogrel Bisulfate (Plavix) 75 mg DAILY PO Last administered on 05/14/20 08:30; Start 05/10/20 at 10:00 Ferrous Sulfate (Feosol) 325 mg DAILY PO Last administered on 05/14/20 08:30; Start 05/10/20 at 10:00 Fluticasone Propionate (Flonase) 2 spray DAILY NS Last administered on 05/14/20 08:32; Start 05/10/20 at 10:00 Isosorbide Mononitrate (Imdur) 60 mg DAILY PO Last administered on 05/14/20 08:31; Start 05/10/20 at 10:00 Pantoprazole Sodium (Protonix) 40 mg DAILY PO Last administered on 05/14/20 08:37; Start 05/10/20 at 10:00 Tamsulosin HCl (Flomax) 0.4 mg HS PO Last administered on 05/13/20 21:14; Start 05/10/20 at 21:00 Tizanidine HCl (Zanaflex) 4 mg QHS PO Last administered on 05/13/20 21:14; Start 05/10/20 at 21:00 Ascorbic Acid (Vitamin C) 1,000 mg DAILY PO Last administered on 05/14/20 08:30; Start 05/11/20 at 10:00 Cetirizine HCl (ZyrTEC) 10 mg DAILY PO Last administered on 05/14/20 08:30; Start 05/10/20 at 10:00 Lubiprostone (Amitiza) 24 mcg BIDWMEALS PO Last administered on 05/14/20 08:29; Start 05/10/20 at 17:00 Metoprolol Succinate (Toprol Xl) 50 mg DAILY PO Last administered on 05/14/20 08:31; Start 05/10/20 at 10:00 Multivitamins (Thera M Plus) 1 tab DAILY PO Last administered on 05/14/20 08:29; Start 05/10/20 at 10:00 Insulin Human Lispro (HumaLOG) 0-7 UNITS TIDACHC SQ Last administered on 05/14/20 08:44; Start 05/10/20 at 11:30 Dextrose (Dextrose 50%-Water Syringe) 12.5 gm PRN Q15MIN PRN IV SEE COMMENTS; Start 05/10/20 at 09:00 Ceftriaxone Sodium (Rocephin) 1 gm Q24H IVP Last administered on 05/13/20 17:18; Start 05/10/20 at 18:00 Nystatin (Nystop) 1 jose miguel BID TP Last administered on 05/14/20 08:38; Start 05/10/20 at 12:45 Methylprednisolone Acetate (DEPO-Medrol 40MG VIAL) 40 mg 1X ONCE IM Last administered on 05/10/20 14:23; Start 05/10/20 at 13:45; Stop 05/10/20 at 13:46; Status DC Bupivacaine HCl (Sensorcaine-Mpf 0.25%) 10 ml 1X ONCE IJ Last administered on 05/10/20 13:45; Start 05/10/20 at 13:45; Stop 05/10/20 at 13:46; Status DC Acetaminophen/ Hydrocodone Bitart (Lortab 10/325) 1 tab PRN Q6HRS PRN PO SEVERE PAIN 7-10 Last administered on 05/14/20 08:32; Start 05/10/20 at 14:00 Bisacodyl (Dulcolax Tab) 10 mg DAILY PO Last administered on 05/14/20 08:30; Start 05/11/20 at 10:00 Senna/Docusate Sodium (Senna Plus) 1 tab BID PO Last administered on 05/14/20 08:29; Start 05/11/20 at 10:00 Hydralazine HCl (Apresoline Inj) 10 mg PRN Q4HRS PRN IVP ELEVATED BP, SEE COMMENTS; Start 05/11/20 at 11:15 Psyllium Hydrophilic Mucilloid (Metamucil Fiber Packet) 1 pkt DAILY PO Last administered on 05/14/20at 08:30; Start 05/11/20 at 12:00 Lactobacillus Rhamnosus (Culturelle) 1 cap BID PO Last administered on 05/14/20at 08:29; Start 05/11/20 at 21:00 Heparin Sodium (Porcine) (Heparin Sodium) 5,000 unit Q8HRS SQ Last administered on 05/14/20at 06:02; Start 05/11/20 at 16:45 Polyethylene Glycol (miraLAX PACKET) 17 gm PRN BID PRN PO CONSTIPATION Last administered on 05/13/20at 12:19; Start 05/12/20 at 15:00 Lactulose (Lactulose) 20 gm PRN DAILY PRN PO CONSTIPATION; Start 05/13/20 at 13:30 Active Scripts Active Aspirin Ec (Aspirin) 81 Mg Tablet.dr 1 Tab PO DAILY Reported Flomax (Tamsulosin Hcl) 0.4 Mg Cap.er.24h 1 Cap PO HS Fluticasone Propionate Nasal [place] (Fluticasone Propionate) [address] [place]susp 2 [place] NS DAILY Klor-Con M20 (Potassium Chloride) 20 Meq Tab.er.prt 20 Meq PO HS Linzess (Linaclotide) 145 Mcg Capsule 145 Mcg PO 3X/WEEK Fexofenadine Hcl 180 Mg Tablet 1 Tab PO DAILY Potassium Gluconate 99 Mg Tablet 99 Mg PO DAILY Vitamin C (Ascorbic Acid) 500 Mg Capsule.er 1,000 Mg PO DAILY One Daily For Men Tablet (Multivits-Minerals/Fa/Lycopene) 1 Each Tablet 1 Tab PO DAILY 30 Days Iron (Ferrous Sulfate) 325 Mg Tablet 65 Mg PO DAILY Metformin Hcl 1,000 Mg Tablet 1,000 Mg PO BIDWMEALS Allopurinol 300 Mg Tablet 1 Tab PO DAILY Lisinopril 40 Mg Tablet 1 Tab PO BID Vitamin D2 (Ergocalciferol (Vitamin D2)) 50,000 Unit Capsule 50,000 Unit PO WEEKLY Dose given on the Take on Pantoprazole Sodium (Pantoprazole Sodium) 40 Mg Tablet.dr 1 Tab PO DAILY Gave this morning take tomorrow morning Tizanidine Hcl 4 Mg Tablet 1 Tab PO QHS Gave dose last night Take tonight before bedtime Vascepa (Icosapent Ethyl) 1 Gm Capsule 1 Gm PO Not given on this admission Take as previoulsy instructed Atorvastatin Calcium 20 Mg Tablet 1 Tab PO DAILY Gave last night Take tonight Clopidogrel (Clopidogrel Bisulfate) 75 Mg Tablet 1 Tab PO DAILY Gave this morning take tomorrow morning Isosorbide Mononitrate Er (Isosorbide Mononitrate) 30 Mg Tab.er.24h 60 Mg PO DAILY Gave this morning take tomorrow morning Furosemide 40 Mg Tablet 1 Tab PO DAILY Gave this morning take tomorrow morning Repaglinide 1 Mg Tablet 1 Mg PO Not given on this admission Continue as previously instructed Toprol Xl (Metoprolol Succinate) 50 Mg Tab.er.24h 1 Tab PO DAILY Gave this morning take tomorrow morning Vitals/I & O Vital Sign - Last 24 Hours 05/13/20 05/13/20 05/13/20 05/13/20 10:17 10:30 11:30 14:05 Temp 97.8 98.0 97.8 98.0 Pulse 65 65 Resp 18 18 B/P (MAP) 141/69 (93) 138/64 (88) Pulse Ox 94 93 O2 Delivery Room Air Room Air Room Air Room Air 05/13/20 05/13/20 05/13/20 05/13/20 17:18 18:30 19:24 20:00 Temp 98.2 98.2 Pulse 70 Resp 18 B/P (MAP) 130/66 (87) Pulse Ox 93 O2 Delivery Room Air Room Air Room Air Room Air 05/13/20 05/14/20 05/14/20 05/14/20 22:26 02:56 02:57 03:56 Temp 98.0 97.9 98.0 97.9 Pulse 74 75 Resp 18 18 B/P (MAP) 191/82 (118) 149/75 (99) Pulse Ox 96 96 95 95 O2 Delivery Room Air Room Air Room Air BiPAP/CPAP 05/14/20 05/14/20 05/14/20 05/14/20 06:38 07:45 08:31 08:31 Temp 97.9 97.9 Pulse 79 67 79 79 Resp 18 B/P (MAP) 207/100 (135) 189/77 (114) 207/100 207/100 Pulse Ox 96 O2 Delivery Room Air 05/14/20 08:32 Pulse Ox 96 O2 Delivery Room Air Intake and Output 05/13/20 05/13/20 05/14/20 15:00 23:00 07:00 Intake Total 700 ml 350 ml Output Total 200 ml 600 ml 450 ml Balance -200 ml 100 ml -100 ml Justicifation of Admission Dx: Justifications for Admission: Justification of Admission Dx: Yes SHANTANU SOLORIO MD May 14, 2020 09:09
[2020-05-14] MEDS ORDERED: MAGNESIUM CITRATE 296 ML SOLUTION. PO PRN (09:15)
--- NOTE | 2020-05-14 10:52 | PDOC ---
LUNA MACIAS ELEVATOR SERVICE MECHANIC 05/14/20 1052: CARDIO Progress Notes Date and Time Date of Service 05/14/20 Time of Evaluation 1050 Subjective Subjective: No Chest Pain, No shortness of breath, No Palpitations Vitals Vitals Vital Signs Date Time Temp Pulse Resp B/P (MAP) Pulse Ox O2 Delivery O2 Flow Rate FiO2 05/14/20 10:03 96 Room Air 05/14/20 08:31 79 207/100 05/14/20 06:38 97.9 18 97.9 Weight Weight [ ] Input and Output Intake and Output Intake and Output 05/14/20 07:00 Intake Total 1050 ml Output Total 1250 ml Balance -200 ml Intake Oral 1050 ml Output Urine Total 1250 ml # Voids 1 Laboratory Labs Laboratory Tests Test 05/13/20 11:15 05/13/20 16:13 05/13/20 20:50 05/14/20 04:40 Glucose (Fingerstick) 183 mg/dL (70-99) 172 mg/dL (70-99) 170 mg/dL (70-99) Sodium Level 140 mmol/L (136-145) Potassium Level 4.2 mmol/L (3.5-5.1) Chloride Level 104 mmol/L (98-107) Carbon Dioxide Level 25 mmol/L (21-32) Anion Gap 11 (6-14) Blood Urea Nitrogen 30 mg/dL (8-26) Creatinine 1.5 mg/dL (0.7-1.3) Estimated GFR (Cockcroft-Gault) 46.7 Glucose Level 171 mg/dL (70-99) Calcium Level 8.7 mg/dL (8.5-10.1) Test 05/14/20 07:45 Glucose (Fingerstick) 152 mg/dL (70-99) Microbiology Micro Microbiology 05/09/20 Urine Culture - Final, Complete 05/09/20 Antimicrobic Susceptibility - Final, Complete Physical Exam HEENT: Neck Supple W Full Motion Chest: Symmetric LUNGS: Clear to Auscultation Heart: S1S2, RRR (SR) Abdomen: Other (obese) Extremities: No Calf Tenderness, Other (trace bilateral LE pitting edema) Neurology: alert, oriented, follow commands Assessment Assessment 1. Weakness with mechanical fall. Now with intractable lower back pain. Dr. Dunaway following 2. CAD: PCI/stent x2 in 2013, clinically stable 3. Hypertension; controlled 4. Hyperlipiemia; statin 5. Diabetes, II 6. SONIYA on CKD; Cr improved 7. Hypomagnesemia; resolved 8. Morbid obesity. SUSANA with CPAP 9. UTI; antibiotic therapy 10. BPH 11. Chronic diastolic CHF: compensated Recommendations Continue secondary prevention measures. ASA/plavix. Hydralazine IV PRN Resume oral Lasix Consider outpatient ischemic evaluation PT/OT Considering SNU upon d/c Supportive care Justicifation of Admission Dx: Justifications for Admission: Justification of Admission Dx: Yes JACE AGUSTIN MD 05/14/20 1600: CARDIO Progress Notes Assessment Assessment Patient seen and examined He is sitting on the side of the bed. I agree with our VENETIAN BLIND INSTALLER's assessment and plan. Weakness with mechanical fall. Now with improving lower back pain. Dr. Dunaway following CAD: PCI/stent x2 in 2012, clinically stable Hypertension; controlled SONIYA on CKD; Cr improved Morbid obesity. SUSANA with CPAP Chronic diastolic CHF: compensated LUNA MACIAS APRN May 14, 2020 10:52 JACE AGUSTIN MD May 14, 2020 16:00
--- NOTE | 2020-05-14 11:24 | NUR ---
SS following up with discharge planning. SS reviewed pt chart and discussed with pt RN. Pt is currently on room air. Pt on IV Rocephin. Pt now requesting nursing home unit at either [facility], ; fax [phone], or [facility], ; fax [phone]. SS requested COVID19 test from RN for facility placement. SS phoned and faxed referrals to [facility] and [facility]. SS will await acceptance decision and will proceed accordingly.
--- NOTE | 2020-05-14 13:21 | NUR ---
SS following up with discharge planning. Pt accepted at [facility], ; fax [phone], pending COVID19 test. SS will continue to follow for discharge planning.
--- NOTE | 2020-05-14 15:02 | NUR ---
SS following up with discharge planning. Pt accepted at [facility], ; fax [phone], pending COVID19 test result. SS will continue to follow for discharge planning. Addendum: 05/14/20 at 1503 by YOUSUF FORREST SS CORRECTION TO PREVIOUS NOTE: [facility], ; fax [phone]
[2020-05-14] MEDS: LISINOPRIL 20 MG TABLET PO SCH (15:47)
[2020-05-14] MEDS: FUROSEMIDE 40 MG TABLET. PO SCH (15:47)
--- NOTE | 2020-05-14 16:30 | PDOC ---
PROGRESS NOTES Chief Complaint Chief Complaint A/P: Fall - unable to walk, has intractable left lower back pain, h/o SI joint injection. Will consult PT and PMR physician UTI in male - has been on cipro in the past month, recently seen by Dr. Lamas, started on BPH meds. E. coli and Klebsiella pneumonia in urine greater than 100,000 CFU. Sensitive to Augmentin and Rocephin, resistant to cipro. Will cont rocephin and d/c home on 10 days augmentin BID BPH - cont meds Panniculitis - with prior balanitis, will use topical nystatin powder. Cont rocephin CAD - past stent, clinically stable HTN - controlled Morbid obesity with SUSANA: CPAP at home DM2 - sliding scale SONIYA on CKD - Cr down to 1.2 from 1.9. This was certainly vasomotor nephropathy FEN - Cardiac PPX - heparin FULL CODE Dispo - inpatient History of Present Illness History of Present Illness Mr Drake is a 69 yo M w/ PMHx CAD s/p stents, DM2, GERD, HLD, HTN, chronic back pain, constipation, and recent diagnosis of BPH who presents with generalized weakness for 2 days. Patient reports that he is being treated for urinary tract infection but when he and his reduce his medications they are actually finasteride and tamsulosin. Patient reports that he was trying to get out of bed and ambulate with his walker when he fell due to his weakness on 05/09/2020, he thinks his left SI joint is in some of the worst pain of his life. He denies hitting his head or any loss of consciousness. Patient is reporting dysuria and frequency but reports that he does have urinary frequency due to his Lasix. He also notes some right lower quadrant abdominal pain and has red inflamed pannus. Patient is also reporting a cough, increasing shortness of breath worse with exertion, nausea and vomiting, fever, but has been afebrile here and chest x-ray was clear. Patient denies any abdominal pain, dizziness, focal deficit, or chest pain. He reports that he has chronic diarrhea. He is unable to stand with me Labs significant for WBC 10.4 Hb 13.8 BUN 47 creatinine 2.3 UA positive for blood and leukocyte esterase lactate 2.6 mag 1.7 albumin 3.1. Admitted for further care. 7/10: S/p left SI joint injection with some improvement. Cr down to 1.9. Still with pain and weakness. Able to stand today for a few seconds. 05/12: CR down to 1.2. He tells me pain is 1 out of 10 in his left SI joint but he never knows when he may trigger. He has yet to have a BM has not been out of bed yet today. He and his refused acute rehab have requested home with home health. 05/13: Both E. coli and Klebsiella pneumonia in urine greater than 100,000 CFU. Sensitive to Augmentin and Rocephin. Able to sit on the side of the bed today. Still with some left SI joint pain now complaining of left lateral thigh and her left thigh tingling. This improves when he sits up on side of the bed. He has been passing gas but no BM as of yet Afebrile. No dysuria today. Able to walk the jules with assistance and walker. Still having pain in his left SI joint. He and his are fearful of going to acute rehab or SNF for fear of dominic coronavirus and would like to go home with home health. Still with no BM. Counseled on reducing his opioids in order to continue to have normal bowel movements. Plan: Monitor renal function. Repeat PT prior to discharge home Increase bowel regimen Transition to Augmentin 500 mg twice daily for 10 days when he discharges Vitals Vitals Vital Signs Date Time Temp Pulse Resp B/P (MAP) Pulse Ox O2 Delivery O2 Flow Rate FiO2 05/14/20 15:47 64 157/61 05/14/20 11:00 98.0 18 91 Room Air 98.0 Physical Exam General: Alert, Oriented X3, Cooperative, moderate distress Lungs: Clear Abdomen: Normal bowel sounds, Soft, No tenderness, No hepatosplenomegaly, No masses Extremities: No clubbing, No cyanosis, No edema, Normal pulses, No tenderness/swelling Skin: Other (Panniculitis) Labs LABS Laboratory Tests Test 05/13/20 20:50 05/14/20 04:40 05/14/20 07:45 05/14/20 11:42 Glucose (Fingerstick) 170 mg/dL (70-99) 152 mg/dL (70-99) 136 mg/dL (70-99) Sodium Level 140 mmol/L (136-145) Potassium Level 4.2 mmol/L (3.5-5.1) Chloride Level 104 mmol/L (98-107) Carbon Dioxide Level 25 mmol/L (21-32) Anion Gap 11 (6-14) Blood Urea Nitrogen 30 mg/dL (8-26) Creatinine 1.5 mg/dL (0.7-1.3) Estimated GFR (Cockcroft-Gault) 46.7 Glucose Level 171 mg/dL (70-99) Calcium Level 8.7 mg/dL (8.5-10.1) Assessment and Plan Assessmemt and Plan Problems Medical Problems: (1) SONIYA (acute kidney injury) Status: Acute (2) Urinary tract infection Status: Acute Comment Review of Relevant I have reviewed the following items jm (where applicable) has been applied. Labs Laboratory Tests Test 05/12/20 20:47 05/13/20 07:02 05/13/20 11:15 05/13/20 16:13 Glucose (Fingerstick) 156 mg/dL (70-99) 159 mg/dL (70-99) 183 mg/dL (70-99) 172 mg/dL (70-99) Test 05/13/20 20:50 05/14/20 04:40 05/14/20 07:45 05/14/20 11:42 Glucose (Fingerstick) 170 mg/dL (70-99) 152 mg/dL (70-99) 136 mg/dL (70-99) Sodium Level 140 mmol/L (136-145) Potassium Level 4.2 mmol/L (3.5-5.1) Chloride Level 104 mmol/L (98-107) Carbon Dioxide Level 25 mmol/L (21-32) Anion Gap 11 (6-14) Blood Urea Nitrogen 30 mg/dL (8-26) Creatinine 1.5 mg/dL (0.7-1.3) Estimated GFR (Cockcroft-Gault) 46.7 Glucose Level 171 mg/dL (70-99) Calcium Level 8.7 mg/dL (8.5-10.1) Laboratory Tests Test 05/13/20 20:50 05/14/20 04:40 05/14/20 07:45 05/14/20 11:42 Glucose (Fingerstick) 170 mg/dL (70-99) 152 mg/dL (70-99) 136 mg/dL (70-99) Sodium Level 140 mmol/L (136-145) Potassium Level 4.2 mmol/L (3.5-5.1) Chloride Level 104 mmol/L (98-107) Carbon Dioxide Level 25 mmol/L (21-32) Anion Gap 11 (6-14) Blood Urea Nitrogen 30 mg/dL (8-26) Creatinine 1.5 mg/dL (0.7-1.3) Estimated GFR (Cockcroft-Gault) 46.7 Glucose Level 171 mg/dL (70-99) Calcium Level 8.7 mg/dL (8.5-10.1) Microbiology 05/09/20 Urine Culture - Final, Complete 05/09/20 Antimicrobic Susceptibility - Final, Complete Medications Current Medications Lidocaine (Lidoderm) 1 patch DAILY TD Last administered on 05/14/20at 08:32; Start 05/10/20 at 09:00 Lidocaine (Lidoderm) 1 patch STK-MED ONCE .ROUTE ; Start 05/09/20 at 17:58; Stop 05/09/20 at 17:58; Status DC Acetaminophen (Tylenol) 1,000 mg 1X ONCE PO Last administered on 05/09/20 18:28; Start 05/09/20 at 18:15; Stop 05/09/20 at 18:21; Status DC Ceftriaxone Sodium (Rocephin) 1 gm 1X ONCE IVP Last administered on 05/09/20 18:28; Start 05/09/20 at 18:15; Stop 05/09/20 at 18:21; Status DC Acetaminophen/ Hydrocodone Bitart (Lortab 5/325) 1 tab 1X ONCE PO Last administered on 05/09/20at 21:00; Start 05/09/20 at 21:00; Stop 05/09/20 at 21:04; Status DC Acetaminophen/ Hydrocodone Bitart (Lortab 5/325) 1 tab PRN Q4HRS PRN PO M ODERATE PAIN 4-6 Last administered on 05/11/20 21:28; Start 05/10/20 at 00:15 Allopurinol (Zyloprim) 100 mg DAILY PO Last administered on 05/14/20 08:29; Start 05/10/20 at 10:00 Aspirin (Ecotrin) 81 mg DAILY PO Last administered on 05/14/20 08:29; Start 05/10/20 at 09:30 Atorvastatin Calcium (Lipitor) 20 mg DAILY PO Last administered on 05/14/20 08:30; Start 05/10/20 at 10:00 Clopidogrel Bisulfate (Plavix) 75 mg DAILY PO Last administered on 05/14/20 08:30; Start 05/10/20 at 10:00 Ferrous Sulfate (Feosol) 325 mg DAILY PO Last administered on 05/14/20 08:30; Start 05/10/20 at 10:00 Fluticasone Propionate (Flonase) 2 spray DAILY NS Last administered on 05/14/20 08:32; Start 05/10/20 at 10:00 Isosorbide Mononitrate (Imdur) 60 mg DAILY PO Last administered on 05/14/20 08:31; Start 05/10/20 at 10:00 Pantoprazole Sodium (Protonix) 40 mg DAILY PO Last administered on 05/14/20 08:37; Start 05/10/20 at 10:00 Tamsulosin HCl (Flomax) 0.4 mg HS PO Last administered on 05/13/20 21:14; Start 05/10/20 at 21:00 Tizanidine HCl (Zanaflex) 4 mg QHS PO Last administered on 05/13/20 21:14; Start 05/10/20 at 21:00 Ascorbic Acid (Vitamin C) 1,000 mg DAILY PO Last administered on 05/14/20 08:30; Start 05/11/20 at 10:00 Cetirizine HCl (ZyrTEC) 10 mg DAILY PO Last administered on 05/14/20 08:30; Start 05/10/20 at 10:00 Lubiprostone (Amitiza) 24 mcg BIDWMEALS PO Last administered on 05/14/20 08:29 ; Start 05/10/20 at 17:00 Metoprolol Succinate (Toprol Xl) 50 mg DAILY PO Last administered on 05/14/20 08:31; Start 05/10/20 at 10:00 Multivitamins (Thera M Plus) 1 tab DAILY PO Last administered on 05/14/20 08:29; Start 05/10/20 at 10:00 Insulin Human Lispro (HumaLOG) 0-7 UNITS TIDACHC SQ Last administered on 05/14/20 08:44; Start 05/10/20 at 11:30 Dextrose (Dextrose 50%-Water Syringe) 12.5 gm PRN Q15MIN PRN IV SEE COMMENTS; Start 05/10/20 at 09:00 Ceftriaxone Sodium (Rocephin) 1 gm Q24H IVP Last administered on 05/13/20 17:18; Start 05/10/20 at 18:00 Nystatin (Nystop) 1 jose miguel BID TP Last administered on 05/14/20 08:38; Start 05/10/20 at 12:45 Methylprednisolone Acetate (DEPO-Medrol 40MG VIAL) 40 mg 1X ONCE IM Last administered on 05/10/20 14:23; Start 05/10/20 at 13:45; Stop 05/10/20 at 13:46; Status DC Bupivacaine HCl (Sensorcaine-Mpf 0.25%) 10 ml 1X ONCE IJ Last administered on 05/10/20 13:45; Start 05/10/20 at 13:45; Stop 05/10/20 at 13:46; Status DC Acetaminophen/ Hydrocodone Bitart (Lortab 10/325) 1 tab PRN Q6HRS PRN PO SEVERE PAIN 7-10 Last administered on 05/14/20 08:32; Start 05/10/20 at 14:00 Bisacodyl (Dulcolax Tab) 10 mg DAILY PO Last administered on 05/14/20 08:30; Start 05/11/20 at 10:00 Senna/Docusate Sodium (Senna Plus) 1 tab BID PO Last administered on 05/14/20 08:29; Start 05/11/20 at 10:00 Hydralazine HCl (Apresoline Inj) 10 mg PRN Q4HRS PRN IVP ELEVATED BP, SEE COMMENTS; Start 05/11/20 at 11:15 Psyllium Hydrophilic Mucilloid (Metamucil Fiber Packet) 1 pkt DAILY PO Last administered on 05/14/20 08:30; Start 05/11/20 at 12:00 Lactobacillus Rhamnosus (Culturelle) 1 cap BID PO Last administered on 05/14/20 t 08:29; Start 05/11/20 at 21:00 Heparin Sodium (Porcine) (Heparin Sodium) 5,000 unit Q8HRS SQ Last administered on 05/14/20at 13:28; Start 05/11/20 at 16:45 Polyethylene Glycol (miraLAX PACKET) 17 gm PRN BID PRN PO CONSTIPATION Last administered on 05/13/20at 12:19; Start 05/12/20 at 15:00 Lactulose (Lactulose) 20 gm PRN DAILY PRN PO CONSTIPATION; Start 05/13/20 at 13:30 Magnesium Citrate (Citroma) 296 ml PRN 1X PRN PO CONSTIPATION; Start 05/14/20 at 09:15 Furosemide (Lasix) 40 mg DAILY PO Last administered on 05/14/20at 15:47; Start 05/14/20 at 15:00 Lisinopril (Prinivil) 40 mg DAILY PO Last administered on 05/14/20at 15:47; St art 05/14/20 at 15:00 Active Scripts Active Aspirin Ec (Aspirin) 81 Mg Tablet.dr 1 Tab PO DAILY Reported Flomax (Tamsulosin Hcl) 0.4 Mg Cap.er.24h 1 Cap PO HS Fluticasone Propionate Nasal [place] (Fluticasone Propionate) 16 Gm [place].susp 2 [place] NS DAILY Klor-Con M20 (Potassium Chloride) 20 Meq Tab.er.prt 20 Meq PO HS Linzess (Linaclotide) 145 Mcg Capsule 145 Mcg PO 3X/WEEK Fexofenadine Hcl 180 Mg Tablet 1 Tab PO DAILY Potassium Gluconate 99 Mg Tablet 99 Mg PO DAILY Vitamin C (Ascorbic Acid) 500 Mg Capsule.er 1,000 Mg PO DAILY One Daily For Men Tablet (Multivits-Minerals/Fa/Lycopene) 1 Each Tablet 1 Tab PO DAILY 30 Days Iron (Ferrous Sulfate) 325 Mg Tablet 65 Mg PO DAILY Metformin Hcl 1,000 Mg Tablet 1,000 Mg PO BIDWMEALS Allopurinol 300 Mg Tablet 1 Tab PO DAILY Lisinopril 40 Mg Tablet 1 Tab PO BID Vitamin D2 (Ergocalciferol (Vitamin D2)) 50,000 Unit Capsule 50,000 Unit PO WEEKLY Dose given on the Take on Pantoprazole Sodium (Pantoprazole Sodium) 40 Mg Tablet.dr 1 Tab PO DAILY Gave this morning take tomorrow morning Tizanidine Hcl 4 Mg Tablet 1 Tab PO QHS Gave dose last night Take tonight before bedtime Vascepa (Icosapent Ethyl) 1 Gm Capsule 1 Gm PO Not given on this admission Take as previoulsy instructed Atorvastatin Calcium 20 Mg Tablet 1 Tab PO DAILY Gave last night Take tonight Clopidogrel (Clopidogrel Bisulfate) 75 Mg Tablet 1 Tab PO DAILY Gave this morning take tomorrow morning Isosorbide Mononitrate Er (Isosorbide Mononitrate) 30 Mg Tab.er.24h 60 Mg PO DAILY Gave this morning take tomorrow morning Furosemide 40 Mg Tablet 1 Tab PO DAILY Gave this morning take tomorrow morning Repaglinide 1 Mg Tablet 1 Mg PO Not given on this admission Continue as previously instructed Toprol Xl (Metoprolol Succinate) 50 Mg Tab.er.24h 1 Tab PO DAILY Gave this morning take tomorrow morning Vitals/I & O Vital Sign - Last 24 Hours 05/13/20 05/13/20 05/13/20 05/13/20 17:18 18:30 19:24 20:00 Temp 98.2 98.2 Pulse 70 Resp 18 B/P (MAP) 130/66 (87) Pulse Ox 93 O2 Delivery Room Air Room Air Room Air Room Air 05/13/20 05/14/20 05/14/20 05/14/20 22:26 02:56 02:57 03:56 Temp 98.0 97.9 98.0 97.9 Pulse 74 75 Resp 18 18 B/P (MAP) 191/82 (118) 149/75 (99) Pulse Ox 96 96 95 95 O2 Delivery Room Air Room Air Room Air BiPAP/CPAP 05/14/20 05/14/20 05/14/20 05/14/20 06:38 07:45 08:00 08:31 Temp 97.9 97.9 Pulse 79 67 79 Resp 18 B/P (MAP) 207/100 (135) 189/77 (114) 207/100 Pulse Ox 96 O2 Delivery Room Air Room Air 05/14/20 05/14/20 05/14/20 05/14/20 08:31 08:32 10:03 11:00 Temp 98.0 98.0 Pulse 79 64 Resp 18 B/P (MAP) 207/100 157/61 (93) Pulse Ox 96 96 91 O2 Delivery Room Air Room Air Room Air 05/14/20 15:47 Pulse 64 B/P (MAP) 157/61 Intake and Output 05/13/20 05/13/20 05/14/20 15:00 23:00 07:00 Intake Total 700 ml 350 ml Output Total 200 ml 600 ml 450 ml Balance -200 ml 100 ml -100 ml Justicifation of Admission Dx: Justifications for Admission: Justification of Admission Dx: Yes TIMA LEDESMA MD May 14, 2020 16:30
[2020-05-14] MEDS: cefTRIAXone IV Push 1 GM VIAL. IVP SCH (17:06)
[2020-05-14] MEDS: tiZANidine 4 MG TABLET. PO SCH (20:09)
[2020-05-14] MEDS: TAMSULOSIN 0.4 MG CAP.ER.24H. PO SCH (20:09)
[2020-05-14] MEDS: AMOXICILLIN/K CLAV 500/125MG TABLET. PO SCH (20:09)
[2020-05-15] MEDS: HEPARIN for SUB-Q USE 5,000 UNIT/ML VIAL. SQ SCH ×4 (00:50→21:41)
[2020-05-15 02:30] VITALS: BP 139/63
[2020-05-15 07:00] VITALS: BP 136/59
[2020-05-15] MEDS: INSULIN LISPRO 300 UNITS/3 ML VIAL. SQ SCH ×4 (07:30→21:00)
[2020-05-15] MEDS: ASPIRIN ENTERIC COATED 81 MG TABLET.DR. PO SCH (08:57)
[2020-05-15] MEDS: LUBIPROSTONE 24 MCG CAPSULE PO SCH ×2 (08:57→18:35)
[2020-05-15] MEDS: ASCORBIC ACID 500 MG TABLET PO SCH (08:57)
[2020-05-15] MEDS: MULTIVITAMIN with MINERAL TABLET. PO SCH (08:57)
[2020-05-15] MEDS: SENNOSIDES/DOCUSATE 8.6/50MG TABLET. PO SCH ×2 (08:57→21:00)
[2020-05-15] MEDS: ALLOPURINOL 100 MG TABLET. PO SCH (08:57)
[2020-05-15] MEDS: FERROUS SULFATE 325 MG TABLET. PO SCH (08:57)
[2020-05-15] MEDS: CLOPIDOGREL BISULFATE 75 MG TABLET PO SCH (08:57)
[2020-05-15] MEDS: FUROSEMIDE 40 MG TABLET. PO SCH (08:57)
[2020-05-15] MEDS: BISACODYL 5 MG TABLET.DR. PO SCH (08:57)
[2020-05-15] MEDS: PANTOPRAZOLE 40 MG TABLET.DR. PO SCH (08:58)
[2020-05-15] MEDS: AMOXICILLIN/K CLAV 500/125MG TABLET. PO SCH ×2 (08:58→21:31)
[2020-05-15] MEDS: CETIRIZINE HCL 10 MG TABLET. PO SCH (08:58)
[2020-05-15] MEDS: LACTOBACILLUS RHAMNOSUS GG 1 CAPSULE. PO SCH ×2 (08:58→21:31)
[2020-05-15] MEDS: ISOSORBIDE MONONITRATE ER 30 MG TAB.ER.24H PO SCH (08:58)
[2020-05-15] MEDS: METOPROLOL SUCC 24HR ER 50 MG TAB.ER.24H. PO SCH (08:58)
[2020-05-15] MEDS: LISINOPRIL 20 MG TABLET PO SCH (08:59)
[2020-05-15] MEDS: LIDOCAINE (700MG/PATCH) PATCH. TD SCH (08:59)
[2020-05-15] MEDS: NYSTATIN TOPICAL POWDER 15GM BOTTLE. TP SCH ×2 (08:59→21:32)
[2020-05-15] MEDS: PSYLLIUM HUSK (SUGAR FREE) 1 PKT PACKET PO SCH (08:59)
[2020-05-15] MEDS: FLUTICASONE 50MCG/NASAL SPRAY 16GM BOTTLE. NS SCH (08:59)
--- NOTE | 2020-05-15 09:38 | NUR ---
SS following up with discharge planning. SS reviewed pt chart and discussed with pt RN. Pt is currently on room air. Pt accepted at [facility], but refusing to be swabbed for COVID19. It was explained to pt that facilities will not admit unless they have the COVID19 test. Pt now stating that he is declining [facility] unit and wants to return to home with home healthcare with no preference of company. SS will continue to follow for discharge planning.
[2020-05-15 11:00] VITALS: BP 142/56
--- NOTE | 2020-05-15 11:25 | NUR ---
Refer to paper charting for morning medication administration.
--- NOTE | 2020-05-15 12:51 | PDOC ---
CARDIO Progress Notes Date and Time Date of Service 05/15/20 Time of Evaluation 1250 Subjective Subjective: No Chest Pain, No shortness of breath, No Palpitations Vitals Vitals Vital Signs Date Time Temp Pulse Resp B/P (MAP) Pulse Ox O2 Delivery O2 Flow Rate FiO2 05/15/20 11:00 98.4 85 18 142/56 (84) 95 Room Air 98.4 Weight Weight [ ] Input and Output Intake and Output Intake and Output 05/15/20 07:00 Output Total 1625 ml Balance -1625 ml Output Urine Total 1625 ml # Bowel Movements 1 Laboratory Labs Laboratory Tests Test 05/14/20 16:46 05/14/20 20:52 05/15/20 08:14 05/15/20 11:57 Glucose (Fingerstick) 154 mg/dL (70-99) 215 mg/dL (70-99) 145 mg/dL (70-99) 178 mg/dL (70-99) Microbiology Micro Microbiology 05/09/20 Urine Culture - Final, Complete 05/09/20 Antimicrobic Susceptibility - Final, Complete Physical Exam HEENT: Neck Supple W Full Motion Chest: Symmetric LUNGS: Clear to Auscultation Heart: S1S2, RRR (SR) Abdomen: Other (obese) Extremities: No Calf Tenderness, Other (trace bilateral LE pitting edema) Neurology: alert, oriented, follow commands Assessment Assessment 1. Weakness with mechanical fall. Now with intractable lower back pain. Dr. Dunaway following 2. CAD: PCI/stent x2 in 2012, clinically stable 3. Hypertension; controlled 4. Hyperlipiemia; statin 5. Diabetes, II 6. SONIYA on CKD; Cr improved 7. Hypomagnesemia; resolved 8. Morbid obesity. SUSANA with CPAP 9. UTI; antibiotic therapy 10. BPH 11. Chronic diastolic CHF: compensated Recommendations Continue secondary prevention measures. ASA/plavix. Hydralazine IV PRN Lasix therapy, monitor renal function. AM labs Consider outpatient ischemic evaluation PT/OT Supportive care Justicifation of Admission Dx: Justifications for Admission: Justification of Admission Dx: Yes LUNA MACIAS APRN May 15, 2020 12:51
[2020-05-15] MEDS: HYDROcodone/APAP 10/325 1 TAB TABLET PO PRN ×2 (13:01→19:06)
--- NOTE | 2020-05-15 13:08 | PDOC ---
PROGRESS NOTES Subjective Subjective He feels better and plans to go home. Objective Objective Vital Signs Date Time Temp Pulse Resp B/P (MAP) Pulse Ox O2 Delivery O2 Flow Rate FiO2 05/15/20 11:00 98.4 85 18 142/56 (84) 95 Room Air 98.4 Intake and Output 05/15/20 07:00 Output Total 1625 ml Balance -1625 ml Output Urine Total 1625 ml # Bowel Movements 1 Physical Exam Physical Exam He is supine in bed but apparently walked with roller walker with physical therapy in the hallway. Assessment Assessment Problems Medical Problems: (1) SONIYA (acute kidney injury) Status: Acute (2) Urinary tract infection Status: Acute Plan Plan of Care Agree with plans for home when medically stable. Comment Review of Relevant I have reviewed the following items jm (where applicable) has been applied. Labs Laboratory Tests Test 05/13/20 16:13 05/13/20 20:50 05/14/20 04:40 05/14/20 07:45 Glucose (Fingerstick) 172 mg/dL (70-99) 170 mg/dL (70-99) 152 mg/dL (70-99) Sodium Level 140 mmol/L (136-145) Potassium Level 4.2 mmol/L (3.5-5.1) Chloride Level 104 mmol/L (98-107) Carbon Dioxide Level 25 mmol/L (21-32) Anion Gap 11 (6-14) Blood Urea Nitrogen 30 mg/dL (8-26) Creatinine 1.5 mg/dL (0.7-1.3) Estimated GFR (Cockcroft-Gault) 46.7 Glucose Level 171 mg/dL (70-99) Calcium Level 8.7 mg/dL (8.5-10.1) Test 05/14/20 11:42 05/14/20 16:46 05/14/20 20:52 05/15/20 08:14 Glucose (Fingerstick) 136 mg/dL (70-99) 154 mg/dL (70-99) 215 mg/dL (70-99) 145 mg/dL (70-99) Test 05/15/20 11:57 Glucose (Fingerstick) 178 mg/dL (70-99) Laboratory Tests Test 05/14/20 16:46 05/14/20 20:52 05/15/20 08:14 05/15/20 11:57 Glucose (Fingerstick) 154 mg/dL (70-99) 215 mg/dL (70-99) 145 mg/dL (70-99) 178 mg/dL (70-99) Microbiology 05/09/20 Urine Culture - Final, Complete 05/09/20 Antimicrobic Susceptibility - Final, Complete Medications Current Medications Lidocaine (Lidoderm) 1 patch DAILY TD Last administered on 05/15/20at 08:59; Start 05/10/20 at 09:00 Lidocaine (Lidoderm) 1 patch STK-MED ONCE .ROUTE ; Start 05/09/20 at 17:58; Stop 05/09/20 at 17:58; Status DC Acetaminophen (Tylenol) 1,000 mg 1X ONCE PO Last administered on 05/09/20at 18:28; Start 05/09/20 at 18:15; Stop 05/09/20 at 18:21; Status DC Ceftriaxone Sodium (Rocephin) 1 gm 1X ONCE IVP Last administered on 05/09/20at 18:28; Start 05/09/20 at 18:15; Stop 05/09/20 at 18:21; Status DC Acetaminophen/ Hydrocodone Bitart (Lortab 5/325) 1 tab 1X ONCE PO Last administered on 05/09/20at 21:00; Start 05/09/20 at 21:00; Stop 05/09/20 at 21:04; Status DC Acetaminophen/ Hydrocodone Bitart (Lortab 5/325) 1 tab PRN Q4HRS PRN PO MODERATE PAIN 4-6 Last administered on 05/11/20at 21:28; Start 05/10/20 at 00:15 Allopurinol (Zyloprim) 100 mg DAILY PO Last administered on 05/15/20at 08:57; Start 05/10/20 at 10:00 Aspirin (Ecotrin) 81 mg DAILY PO Last administered on 05/15/20at 08:57; Start 05/10/20 at 09:30 Atorvastatin Calcium (Lipitor) 20 mg DAILY PO Last administered on 05/14/20at 20:08; Start 05/10/20 at 10:00 Clopidogrel Bisulfate (Plavix) 75 mg DAILY PO Last administered on 05/15/20at 08:57; Start 05/10/20 at 10:00 Ferrous Sulfate (Feosol) 325 mg DAILY PO Last administered on 05/15/20 08:57; Start 05/10/20 at 10:00 Fluticasone Propionate (Flonase) 2 spray DAILY NS Last administered on 05/15/20 08:59; Start 05/10/20 at 10:00 Isosorbide Mononitrate (Imdur) 60 mg DAILY PO Last administered on 05/15/20 08:58; Start 05/10/20 at 10:00 Pantoprazole Sodium (Protonix) 40 mg DAILY PO Last administered on 05/15/20 08:58; Start 05/10/20 at 10:00 Tamsulosin HCl (Flomax) 0.4 mg HS PO Last administered on 05/14/20 20:09; Start 05/10/20 at 21:00 Tizanidine HCl (Zanaflex) 4 mg QHS PO Last administered on 05/14/20 20:09; Start 05/10/20 at 21:00 Ascorbic Acid (Vitamin C) 1,000 mg DAILY PO Last administered on 05/15/20 08: 57; Start 05/11/20 at 10:00 Cetirizine HCl (ZyrTEC) 10 mg DAILY PO Last administered on 05/15/20 08:58; Start 05/10/20 at 10:00 Lubiprostone (Amitiza) 24 mcg BIDWMEALS PO Last administered on 05/15/20 08:57; Start 05/10/20 at 17:00 Metoprolol Succinate (Toprol Xl) 50 mg DAILY PO Last administered on 05/15/20 08:58; Start 05/10/20 at 10:00 Multivitamins (Thera M Plus) 1 tab DAILY PO Last administered on 05/15/20 08:57; Start 05/10/20 at 10:00 Insulin Human Lispro (HumaLOG) 0-7 UNITS TIDACHC SQ Last administered on 05/14/20 17:05; Start 05/10/20 at 11:30 Dextrose (Dextrose 50%-Water Syringe) 12.5 gm PRN Q15MIN PRN IV SEE COMMENTS; Start 05/10/20 at 09:00 Ceftriaxone Sodium (Rocephin) 1 gm Q24H IVP Last administered on 05/14/20 17:06; Start 05/10/20 at 18:00; Stop 05/15/20 at 12:58; Status DC Nystatin (Nystop) 1 jose miguel BID TP Last administered on 05/15/20at 08:59; Start 05/10/20 at 12:45 Methylprednisolone Acetate (DEPO-Medrol 40MG VIAL) 40 mg 1X ONCE IM Last administered on 05/10/20at 14:23; Start 05/10/20 at 13:45; Stop 05/10/20 at 13:46; Status DC Bupivacaine HCl (Sensorcaine-Mpf 0.25%) 10 ml 1X ONCE IJ Last administered on 05/10/20at 13:45; Start 05/10/20 at 13:45; Stop 05/10/20 at 13:46; Status DC Acetaminophen/ Hydrocodone Bitart (Lortab 10/325) 1 tab PRN Q6HRS PRN PO SEVERE PAIN 7-10 Last administered on 05/14/20at 17:06; Start 05/10/20 at 14:00 Bisacodyl (Dulcolax Tab) 10 mg DAILY PO Last administered on 05/15/20at 08:57; Start 05/11/20 at 10:00 Senna/Docusate Sodium (Senna Plus) 1 tab BID PO Last administered on 05/15/20at 08:57; Start 05/11/20 at 10:00 Hydralazine HCl (Apresoline Inj) 10 mg PRN Q4HRS PRN IVP ELEVATED BP, SEE COM MENTS; Start 05/11/20 at 11:15 Psyllium Hydrophilic Mucilloid (Metamucil Fiber Packet) 1 pkt DAILY PO Last administered on 05/15/20at 08:59; Start 05/11/20 at 12:00 Lactobacillus Rhamnosus (Culturelle) 1 cap BID PO Last administered on 05/15/20at 08:58; Start 05/11/20 at 21:00 Heparin Sodium (Porcine) (Heparin Sodium) 5,000 unit Q8HRS SQ Last administered on 05/15/20at 00:50; Start 05/11/20 at 16:45 Polyethylene Glycol (miraLAX PACKET) 17 gm PRN BID PRN PO CONSTIPATION Last administered on 05/13/20at 12:19; Start 05/12/20 at 15:00 Lactulose (Lactulose) 20 gm PRN DAILY PRN PO CONSTIPATION; Start 05/13/20 at 13:30 Magnesium Citrate (Citroma) 296 ml PRN 1X PRN PO CONSTIPATION; Start 05/14/20 at 09:15 Furosemide (Lasix) 40 mg DAILY PO Last administered on 05/15/20at 08:57; Start 05/14/20 at 15:00 Lisinopril (Prinivil) 40 mg DAILY PO Last administered on 05/15/20at 08:59; Start 05/14/20 at 15:00 Amoxicillin/ Clavulanate Potassium (Augmentin 500/ 125mg) 1 tab BID PO Last administered on 05/15/20at 08:58; Start 05/14/20 at 21:00; Stop 05/25/20 at 22:00 Active Scripts Active Aspirin Ec (Aspirin) 81 Mg Tablet.dr 1 Tab PO DAILY Reported Flomax (Tamsulosin Hcl) 0.4 Mg Cap.er.24h 1 Cap PO HS Fluticasone Propionate Nasal [place] (Fluticasone Propionate) 16 Gm [place].susp 2 [place] NS DAILY Klor-Con M20 (Potassium Chloride) 20 Meq Tab.er.prt 20 Meq PO HS Linzess (Linaclotide) 145 Mcg Capsule 145 Mcg PO 3X/WEEK Fexofenadine Hcl 180 Mg Tablet 1 Tab PO DAILY Potassium Gluconate 99 Mg Tablet 99 Mg PO DAILY Vitamin C (Ascorbic Acid) 500 Mg Capsule.er 1,000 Mg PO DAILY One Daily For Men Tablet (Multivits-Minerals/Fa/Lycopene) 1 Each Tablet 1 Tab PO DAILY 30 Days Iron (Ferrous Sulfate) 325 Mg Tablet 65 Mg PO DAILY Metformin Hcl 1,000 Mg Tablet 1,000 Mg PO BIDWMEALS Allopurinol 300 Mg Tablet 1 Tab PO DAILY Lisinopril 40 Mg Tablet 1 Tab PO BID Vitamin D2 (Ergocalciferol (Vitamin D2)) 50,000 Unit Capsule 50,000 Unit PO WEEKLY Dose given on the Take on Pantoprazole Sodium (Pantoprazole Sodium) 40 Mg Tablet. 1 Tab PO DAILY Gave this morning take tomorrow morning Tizanidine Hcl 4 Mg Tablet 1 Tab PO QHS Gave dose last night Take tonight before bedtime Vascepa (Icosapent Ethyl) 1 Gm Capsule 1 Gm PO Not given on this admission Take as previoulsy instructed Atorvastatin Calcium 20 Mg Tablet 1 Tab PO DAILY Gave last night Take tonight Clopidogrel (Clopidogrel Bisulfate) 75 Mg Tablet 1 Tab PO DAILY Gave this morning take tomorrow morning Isosorbide Mononitrate Er (Isosorbide Mononitrate) 30 Mg Tab.er.24h 60 Mg PO DAILY Gave this morning take tomorrow morning Furosemide 40 Mg Tablet 1 Tab PO DAILY Gave this morning take tomorrow morning Repaglinide 1 Mg Tablet 1 Mg PO Not given on this admission Continue as previously instructed Toprol Xl (Metoprolol Succinate) 50 Mg Tab.er.24h 1 Tab PO DAILY Gave this morning take tomorrow morning Vitals/I & O Vital Sign - Last 24 Hours 05/14/20 05/14/20 05/14/20 05/14/20 15:00 15:47 18:21 19:02 Temp 97.9 97.7 97.9 97.7 Pulse 71 64 74 Resp 18 16 B/P (MAP) 148/70 (96) 157/61 131/60 (83) Pulse Ox 94 94 93 O2 Delivery Room Air Room Air Room Air 05/14/20 05/14/20 05/15/20 05/15/20 20:00 23:12 02:30 07:00 Temp 97.5 97.5 98.0 97.5 97.5 98.0 Pulse 69 64 61 Resp 16 16 20 B/P (MAP) 124/57 (79) 139/63 (88) 136/59 (84) Pulse Ox 95 95 94 O2 Delivery Room Air Room Air Room Air Room Air 05/15/20 05/15/20 05/15/20 05/15/20 08:00 08:58 08:58 08:59 Pulse 64 64 64 B/P (MAP) 139/63 139/63 139/63 O2 Delivery Room Air 05/15/20 11:00 Temp 98.4 98.4 Pulse 85 Resp 18 B/P (MAP) 142/56 (84) Pulse Ox 95 O2 Delivery Room Air Intake and Output 05/14/20 05/14/20 05/15/20 15:00 23:00 07:00 Output Total 750 ml 700 ml 175 ml Balance -750 ml -700 ml -175 ml Justicifation of Admission Dx: Justifications for Admission: Justification of Admission Dx: Yes SHANTANU SOLORIO MD May 15, 2020 13:08
[2020-05-15] MEDS ORDERED: AMOX1TAB10 PO (13:23)
--- NOTE | 2020-05-15 13:29 | PDOC ---
PROGRESS NOTES Chief Complaint Chief Complaint A/P: Fall - unable to walk, has intractable left lower back pain, h/o SI joint injection. Will consult PT and PMR physician UTI in male - has been on cipro in the past month, recently seen by Dr. Lamas, started on BPH meds. E. coli and Klebsiella pneumonia in urine greater than 100,000 CFU. Sensitive to Augmentin and Rocephin, resistant to cipro. Will cont rocephin and d/c home on 10 days augmentin BID BPH - cont meds Panniculitis - with prior balanitis, will use topical nystatin powder. Cont rocephin CAD - past stent, clinically stable HTN - controlled Morbid obesity with SUSANA: CPAP at home DM2 - sliding scale SONIYA on CKD - Cr down to 1.5 from 1.9. This was certainly vasomotor nephropathy FEN - Cardiac PPX - heparin FULL CODE Dispo - inpatient History of Present Illness History of Present Illness Mr Drake is a 69 yo M w/ PMHx CAD s/p stents, DM2, GERD, HLD, HTN, chronic back pain, constipation, and recent diagnosis of BPH who presents with generalized weakness for 2 days. Patient reports that he is being treated for urinary tract infection but when he and his reduce his medications they are actually finasteride and tamsulosin. Patient reports that he was trying to get out of bed and ambulate with his walker when he fell due to his weakness on 05/09/2020, he thinks his left SI joint is in some of the worst pain of his life. He denies hitting his head or any loss of consciousness. Patient is reporting dysuria and frequency but reports that he does have urinary frequency due to his Lasix. He also notes some right lower quadrant abdominal pain and has red inflamed pannus. Patient is also reporting a cough, increasing shortness of breath worse with exertion, nausea and vomiting, fever, but has been afebrile here and chest x-ray was clear. Patient denies any abdominal pain, dizziness, focal deficit, or chest pain. He reports that he has chronic diarrhea. He is unable to stand with me Labs significant for WBC 10.4 Hb 13.8 BUN 47 creatinine 2.3 UA positive for blood and leukocyte esterase lactate 2.6 mag 1.7 albumin 3.1. Admitted for further care. 7/10: S/p left SI joint injection with some improvement. Cr down to 1.9. Still with pain and weakness. Able to stand today for a few seconds. 05/12: CR down to 1.2. He tells me pain is 1 out of 10 in his left SI joint but he never knows when he may trigger. He has yet to have a BM has not been out of bed yet today. He and his refused acute rehab have requested home with home health. 05/13: Both E. coli and Klebsiella pneumonia in urine greater than 100,000 CFU. Sensitive to Augmentin and Rocephin. Able to sit on the side of the bed today. Still with some left SI joint pain now complaining of left lateral thigh and her left thigh tingling. This improves when he sits up on side of the bed. He has been passing gas but no BM as of yet Plan: Monitor renal function. Repeat PT prior to discharge home Increase bowel regimen Transition to Augmentin 500 mg twice daily for 10 days when he discharges repeat BMP in AM then dc home if creatine stable. hold metformin at lisinopril given creatine 1.5 Vitals Vitals Vital Signs Date Time Temp Pulse Resp B/P (MAP) Pulse Ox O2 Delivery O2 Flow Rate FiO2 05/15/20 13:01 95 Room Air 05/15/20 11:00 98.4 85 18 142/56 (84) 98.4 Physical Exam General: Alert, Oriented X3, Cooperative, moderate distress Lungs: Clear Abdomen: Normal bowel sounds, Soft, No tenderness, No hepatosplenomegaly, No masses Extremities: No clubbing, No cyanosis, No edema, Normal pulses, No tenderness/swelling Skin: Other (Panniculitis) Labs LABS Laboratory Tests Test 05/14/20 16:46 05/14/20 20:52 05/15/20 08:14 05/15/20 11:57 Glucose (Fingerstick) 154 mg/dL (70-99) 215 mg/dL (70-99) 145 mg/dL (70-99) 178 mg/dL (70-99) Assessment and Plan Assessmemt and Plan Problems Medical Problems: (1) SONIYA (acute kidney injury) Status: Acute (2) Urinary tract infection Status: Acute Comment Review of Relevant I have reviewed the following items jm (where applicable) has been applied. Labs Laboratory Tests Test 05/13/20 16:13 05/13/20 20:50 05/14/20 04:40 05/14/20 07:45 Glucose (Fingerstick) 172 mg/dL (70-99) 170 mg/dL (70-99) 152 mg/dL (70-99) Sodium Level 140 mmol/L (136-145) Potassium Level 4.2 mmol/L (3.5-5.1) Chloride Level 104 mmol/L (98-107) Carbon Dioxide Level 25 mmol/L (21-32) Anion Gap 11 (6-14) Blood Urea Nitrogen 30 mg/dL (8-26) Creatinine 1.5 mg/dL (0.7-1.3) Estimated GFR (Cockcroft-Gault) 46.7 Glucose Level 171 mg/dL (70-99) Calcium Level 8.7 mg/dL (8.5-10.1) Test 05/14/20 11:42 05/14/20 16:46 05/14/20 20:52 05/15/20 08:14 Glucose (Fingerstick) 136 mg/dL (70-99) 154 mg/dL (70-99) 215 mg/dL (70-99) 145 mg/dL (70-99) Test 05/15/20 11:57 Glucose (Fingerstick) 178 mg/dL (70-99) Laboratory Tests Test 05/14/20 16:46 05/14/20 20:52 05/15/20 08:14 05/15/20 11:57 Glucose (Fingerstick) 154 mg/dL (70-99) 215 mg/dL (70-99) 145 mg/dL (70-99) 178 mg/dL (70-99) Microbiology 05/09/20 Urine Culture - Final, Complete 05/09/20 Antimicrobic Susceptibility - Final, Complete Medications Current Medications Lidocaine (Lidoderm) 1 patch DAILY TD Last administered on 05/15/20at 08:59; Start 05/10/20 at 09:00 Lidocaine (Lidoderm) 1 patch STK-MED ONCE .ROUTE ; Start 05/09/20 at 17:58; Stop 05/09/20 at 17:58; Status DC Acetaminophen (Tylenol) 1,000 mg 1X ONCE PO Last administered on 05/09/20at 18:28; Start 05/09/20 at 18:15; Stop 05/09/20 at 18:21; Status DC Ceftriaxone Sodium (Rocephin) 1 gm 1X ONCE IVP Last administered on 05/09/20 18:28; Start 05/09/20 at 18:15; Stop 05/09/20 at 18:21; Status DC Acetaminophen/ Hydrocodone Bitart (Lortab 5/325) 1 tab 1X ONCE PO Last administered on 05/09/20at 21:00; Start 05/09/20 at 21:00; Stop 05/09/20 at 21:04; Status DC Acetaminophen/ Hydrocodone Bitart (Lortab 5/325) 1 tab PRN Q4HRS PRN PO MODERATE PAIN 4-6 Last administered on 05/11/20 21:28; Start 05/10/20 at 00:15 Allopurinol (Zyloprim) 100 mg DAILY PO Last administered on 05/15/20 08:57; Start 05/10/20 at 10:00 Aspirin (Ecotrin) 81 mg DAILY PO Last administered on 05/15/20 08:57; Start 05/10/20 at 09:30 Atorvastatin Calcium (Lipitor) 20 mg DAILY PO Last administered on 05/14/20 20:08; Start 05/10/20 at 10:00 Clopidogrel Bisulfate (Plavix) 75 mg DAILY PO Last administered on 05/15/20 08:57; Start 05/10/20 at 10:00 Ferrous Sulfate (Feosol) 325 mg DAILY PO Last administered on 05/15/20 08:57; Start 05/10/20 at 10:00 Fluticasone Propionate (Flonase) 2 spray DAILY NS Last administered on 05/15/20 08:59; Start 05/10/20 at 10:00 Isosorbide Mononitrate (Imdur) 60 mg DAILY PO Last administered on 05/15/20 08:58; Start 05/10/20 at 10:00 Pantoprazole Sodium (Protonix) 40 mg DAILY PO Last administered on 05/15/20 08:58; Start 05/10/20 at 10:00 Tamsulosin HCl (Flomax) 0.4 mg HS PO Last administered on 05/14/20at 20:09; Start 05/10/20 at 21:00 Tizanidine HCl (Zanaflex) 4 mg QHS PO Last administered on 05/14/20 20:09; Start 05/10/20 at 21:00 Ascorbic Acid (Vitamin C) 1,000 mg DAILY PO Last administered on 05/15/20 08:57; Start 05/11/20 at 10:00 Cetirizine HCl (ZyrTEC) 10 mg DAILY PO Last administered on 05/15/20 08:58; Start 05/10/20 at 10:00 Lubiprostone (Amitiza) 24 mcg BIDWMEALS PO Last administered on 05/15/20 08:57; Start 05/10/20 at 17:00 Metoprolol Succinate (Toprol Xl) 50 mg DAILY PO Last administered on 05/15/20 08:58; Start 05/10/20 at 10:00 Multivitamins (Thera M Plus) 1 tab DAILY PO Last administered on 05/15/20 08:57; Start 05/10/20 at 10:00 Insulin Human Lispro (HumaLOG) 0-7 UNITS TIDACHC SQ Last administered on 05/15/20 13:08; Start 05/10/20 at 11:30 Dextrose (Dextrose 50%-Water Syringe) 12.5 gm PRN Q15MIN PRN IV SEE COMMENTS; Start 05/10/20 at 09:00 Ceftriaxone Sodium (Rocephin) 1 gm Q24H IVP Last administered on 05/14/20 17:06; Start 05/10/20 at 18:00; Stop 05/15/20 at 12:58; Status DC Nystatin (Nystop) 1 jose miguel BID TP Last administered on 05/15/20 08:59; Start 05/10/20 at 12:45 Methylprednisolone Acetate (DEPO-Medrol 40MG VIAL) 40 mg 1X ONCE IM Last administered on 05/10/20 14:23; Start 05/10/20 at 13:45; Stop 05/10/20 at 13:46; Status DC Bupivacaine HCl (Sensorcaine-Mpf 0.25%) 10 ml 1X ONCE IJ Last administered on 05/10/20at 13:45; Start 05/10/20 at 13:45; Stop 05/10/20 at 13:46; Status DC Acetaminophen/ Hydrocodone Bitart (Lortab 10/325) 1 tab PRN Q6HRS PRN PO SEVERE PAIN 7-10 Last administered on 05/15/20 13:01; Start 05/10/20 at 14:00 Bisacodyl (Dulcolax Tab) 10 mg DAILY PO Last administered on 05/15/20 08:57; Start 05/11/20 at 10:00 Senna/Docusate Sodium (Senna Plus) 1 tab BID PO Last administered on 05/15/20 08:57; Start 05/11/20 at 10:00 Hydralazine HCl (Apresoline Inj) 10 mg PRN Q4HRS PRN IVP ELEVATED BP, SEE COMMENTS; Start 05/11/20 at 11:15 Psyllium Hydrophilic Mucilloid (Metamucil Fiber Packet) 1 pkt DAILY PO Last administered on 05/15/20 08:59; Start 05/11/20 at 12:00 Lactobacillus Rhamnosus (Culturelle) 1 cap BID PO Last administered on 05/15/20 08:58; Start 05/11/20 at 21:00 Heparin Sodium (Porcine) (Heparin Sodium) 5,000 unit Q8HRS SQ Last administered on 05/15/20at 00:50; Start 05/11/20 at 16:45 Polyethylene Glycol (miraLAX PACKET) 17 gm PRN BID PRN PO CONSTIPATION Last administered on 05/13/20at 12:19; Start 05/12/20 at 15:00 Lactulose (Lactulose) 20 gm PRN DAILY PRN PO CONSTIPATION; Start 05/13/20 at 13:30 Magnesium Citrate (Citroma) 296 ml PRN 1X PRN PO CONSTIPATION; Start 05/14/20 at 09:15 Furosemide (Lasix) 40 mg DAILY PO Last administered on 05/15/20 08:57; Start 05/14/20 at 15:00 Lisinopril (Prinivil) 40 mg DAILY PO Last administered on 05/15/20 08:59; Start 05/14/20 at 15:00 Amoxicillin/ Clavulanate Potassium (Augmentin 500/ 125mg) 1 tab BID PO Last administered on 05/15/20 08:58; Start 05/14/20 at 21:00; Stop 05/25/20 at 22:00 Active Scripts Active Amox Tr-K Clv 500-125 Mg Tab (Amoxicillin/Potassium Clav) 1 Each Tablet 1 Tab PO BID 10 Days Aspirin Ec (Aspirin) 81 Mg Tablet.dr 1 Tab PO DAILY Reported Flomax (Tamsulosin Hcl) 0.4 Mg Cap.er.24h 1 Cap PO HS Fluticasone Propionate Nasal [place] (Fluticasone Propionate) 16 Gm [place].susp 2 [place] NS DAILY Klor-Con M20 (Potassium Chloride) 20 Meq Tab.er.prt 20 Meq PO HS Linzess (Linaclotide) 145 Mcg Capsule 145 Mcg PO 3X/WEEK Fexofenadine Hcl 180 Mg Tablet 1 Tab PO DAILY Potassium Gluconate 99 Mg Tablet 99 Mg PO DAILY Vitamin C (Ascorbic Acid) 500 Mg Capsule.er 1,000 Mg PO DAILY One Daily For Men Tablet (Multivits-Minerals/Fa/Lycopene) 1 Each Tablet 1 Tab PO DAILY 30 Days Iron (Ferrous Sulfate) 325 Mg Tablet 65 Mg PO DAILY Allopurinol 300 Mg Tablet 1 Tab PO DAILY Vitamin D2 (Ergocalciferol (Vitamin D2)) 50,000 Unit Capsule 50,000 Unit PO WEEKLY Dose given on the Take on Pantoprazole Sodium (Pantoprazole Sodium) 40 Mg Tablet.dr 1 Tab PO DAILY Gave this morning take tomorrow morning Tizanidine Hcl 4 Mg Tablet 1 Tab PO QHS Gave dose last night Take tonight before bedtime Vascepa (Icosapent Ethyl) 1 Gm Capsule 1 Gm PO Not given on this admission Take as previoulsy instructed Atorvastatin Calcium 20 Mg Tablet 1 Tab PO DAILY Gave last night Take tonight Clopidogrel (Clopidogrel Bisulfate) 75 Mg Tablet 1 Tab PO DAILY Gave this morning take tomorrow morning Isosorbide Mononitrate Er (Isosorbide Mononitrate) 30 Mg Tab.er.24h 60 Mg PO DAILY Gave this morning take tomorrow morning Furosemide 40 Mg Tablet 1 Tab PO DAILY Gave this morning take tomorrow morning Repaglinide 1 Mg Tablet 1 Mg PO Not given on this admission Continue as previously instructed Toprol Xl (Metoprolol Succinate) 50 Mg Tab.er.24h 1 Tab PO DAILY Gave this morning take tomorrow morning Vitals/I & O Vital Sign - Last 24 Hours 05/14/20 05/14/20 05/14/20 05/14/20 15:00 15:47 18:21 19:02 Temp 97.9 97.7 97.9 97.7 Pulse 71 64 74 Resp 18 16 B/P (MAP) 148/70 (96) 157/61 131/60 (83) Pulse Ox 94 94 93 O2 Delivery Room Air Room Air Room Air 05/14/20 05/14/20 05/15/20 05/15/20 20:00 23:12 02:30 07:00 Temp 97.5 97.5 98.0 97.5 97.5 98.0 Pulse 69 64 61 Resp 16 16 20 B/P (MAP) 124/57 (79) 139/63 (88) 136/59 (84) Pulse Ox 95 95 94 O2 Delivery Room Air Room Air Room Air Room Air 05/15/20 05/15/20 05/15/20 05/15/20 08:00 08:58 08:58 08:59 Pulse 64 64 64 B/P (MAP) 139/63 139/63 139/63 O2 Delivery Room Air 05/15/20 05/15/20 11:00 13:01 Temp 98.4 98.4 Pulse 85 Resp 18 B/P (MAP) 142/56 (84) Pulse Ox 95 95 O2 Delivery Room Air Room Air Intake and Output 05/14/20 05/14/20 05/15/20 15:00 23:00 07:00 Output Total 750 ml 700 ml 175 ml Balance -750 ml -700 ml -175 ml Justicifation of Admission Dx: Justifications for Admission: Justification of Admission Dx: Yes KATH CABALLERO MD May 15, 2020 13:29
--- NOTE | 2020-05-15 13:43 | NUR ---
SS following up with discharge planning. Pt and spouse agreeable to home healthcare with no preference of company. SS phoned and faxed clinical updates to [facility], ; fax [phone]. Discharge order on the chart. Per RN, Dr. Arnett requesting to hold pt one more night due to kidney functioning. Plan to discharge to home with home healthcare tomorrow. SS will continue to follow for discharge planning.
[2020-05-15 15:00] VITALS: BP 126/59
[2020-05-15 19:47] VITALS: BP 119/54
[2020-05-15] MEDS: TAMSULOSIN 0.4 MG CAP.ER.24H. PO SCH (21:31)
[2020-05-15] MEDS: tiZANidine 4 MG TABLET. PO SCH (21:32)
[2020-05-15 23:19] VITALS: BP 119/56
[2020-05-16 03:51] VITALS: BP 124/45
[2020-05-16] MEDS: HYDROcodone/APAP 10/325 1 TAB TABLET PO PRN (04:32)
[2020-05-16] MEDS: HEPARIN for SUB-Q USE 5,000 UNIT/ML VIAL. SQ SCH (04:34)
[2020-05-16 07:00] VITALS: BP 124/67
[2020-05-16 07:02] LABS: CALCIUM 8.8 mg/dL (8.5-10.1); CREATININE 1.7 mg/dL (0.7-1.3); GFR 40.4; MAGNESIUM 2.7 mg/dL (1.8-2.4); POTASSIUM 4.6 mmol/L (3.5-5.1)
--- NOTE | 2020-05-16 08:56 | PDOC ---
PROGRESS NOTES Subjective Subjective He admits back pain is better controlled. Objective Objective Vital Signs Date Time Temp Pulse Resp B/P (MAP) Pulse Ox O2 Delivery O2 Flow Rate FiO2 05/16/20 07:00 97.5 57 18 124/67 (86) 94 Room Air 97.5 Intake and Output 05/16/20 07:00 Intake Total 880 ml Output Total 250 ml Balance 630 ml Intake Oral 880 ml Output Urine Total 250 ml # Voids 8 Physical Exam Physical Exam He is alert,sitting at edge of bed and he is walking around the room with roller walker with assistance from his . Assessment Assessment Problems Medical Problems: (1) SONIYA (acute kidney injury) Status: Acute (2) Urinary tract infection Status: Acute Plan Plan of Skilled Nursing with home health follow up when medically stable. Comment Review of Relevant I have reviewed the following items jm (where applicable) has been applied. Labs Laboratory Tests Test 05/14/20 11:42 05/14/20 16:46 05/14/20 20:52 05/15/20 08:14 Glucose (Fingerstick) 136 mg/dL (70-99) 154 mg/dL (70-99) 215 mg/dL (70-99) 145 mg/dL (70-99) Test 05/15/20 11:57 05/15/20 17:06 05/15/20 21:14 05/16/20 06:20 Glucose (Fingerstick) 178 mg/dL (70-99) 138 mg/dL (70-99) 168 mg/dL (70-99) Sodium Level 139 mmol/L (136-145) Potassium Level 4.6 mmol/L (3.5-5.1) Chloride Level 102 mmol/L (98-107) Carbon Dioxide Level 27 mmol/L (21-32) Anion Gap 10 (6-14) Blood Urea Nitrogen 34 mg/dL (8-26) Creatinine 1.7 mg/dL (0.7-1.3) Estimated GFR (Cockcroft-Gault) 40.4 Glucose Level 193 mg/dL (70-99) Calcium Level 8.8 mg/dL (8.5-10.1) Magnesium Level 2.7 mg/dL (1.8-2.4) Test 05/16/20 07:44 Glucose (Fingerstick) 162 mg/dL (70-99) Laboratory Tests Test 05/15/20 11:57 05/15/20 17:06 05/15/20 21:14 05/16/20 06:20 Glucose (Fingerstick) 178 mg/dL (70-99) 138 mg/dL (70-99) 168 mg/dL (70-99) Sodium Level 139 mmol/L (136-145) Potassium Level 4.6 mmol/L (3.5-5.1) Chloride Level 102 mmol/L (98-107) Carbon Dioxide Level 27 mmol/L (21-32) Anion Gap 10 (6-14) Blood Urea Nitrogen 34 mg/dL (8-26) Creatinine 1.7 mg/dL (0.7-1.3) Estimated GFR (Cockcroft-Gault) 40.4 Glucose Level 193 mg/dL (70-99) Calcium Level 8.8 mg/dL (8.5-10.1) Magnesium Level 2.7 mg/dL (1.8-2.4) Test 05/16/20 07:44 Glucose (Fingerstick) 162 mg/dL (70-99) Microbiology 05/09/20 Urine Culture - Final, Complete 05/09/20 Antimicrobic Susceptibility - Final, Complete Medications Current Medications Lidocaine (Lidoderm) 1 patch DAILY TD Last administered on 05/15/20at 08:59; Start 05/10/20 at 09:00 Lidocaine (Lidoderm) 1 patch STK-MED ONCE .ROUTE ; Start 05/09/20 at 17:58; Stop 05/09/20 at 17:58; Status DC Acetaminophen (Tylenol) 1,000 mg 1X ONCE PO Last administered on 05/09/20at 18:28; Start 05/09/20 at 18:15; Stop 05/09/20 at 18:21; Status DC Ceftriaxone Sodium (Rocephin) 1 gm 1X ONCE IVP Last administered on 05/09/20at 18:28; Start 05/09/20 at 18:15; Stop 05/09/20 at 18:21; Status DC Acetaminophen/ Hydrocodone Bitart (Lortab 5/325) 1 tab 1X ONCE PO Last administered on 05/09/20at 21:00; Start 05/09/20 at 21:00; Stop 05/09/20 at 21:04; Status DC Acetaminophen/ Hydrocodone Bitart (Lortab 5/325) 1 tab PRN Q4HRS PRN PO MODERATE PAIN 4-6 Last administered on 05/11/20 21:28; Start 05/10/20 at 00:15 Allopurinol (Zyloprim) 100 mg DAILY PO Last administered on 05/15/20 08:57; Start 05/10/20 at 10:00 Aspirin (Ecotrin) 81 mg DAILY PO Last administered on 05/15/20 08:57; Start 05/10/20 at 09:30 Atorvastatin Calcium (Lipitor) 20 mg DAILY PO Last administered on 05/14/20 20:08; Start 05/10/20 at 10:00 Clopidogrel Bisulfate (Plavix) 75 mg DAILY PO Last administered on 05/15/20 08:57; Start 05/10/20 at 10:00 Ferrous Sulfate (Feosol) 325 mg DAILY PO Last administered on 05/15/20 08:57; Start 05/10/20 at 10:00 Fluticasone Propionate (Flonase) 2 spray DAILY NS Last administered on 05/15/20 08:59; Start 05/10/20 at 10:00 Isosorbide Mononitrate (Imdur) 60 mg DAILY PO Last administered on 05/15/20 08:58; Start 05/10/20 at 10:00 Pantoprazole Sodium (Protonix) 40 mg DAILY PO Last administered on 05/15/20 08:58; Start 05/10/20 at 10:00 Tamsulosin HCl (Flomax) 0.4 mg HS PO Last administered on 05/15/20 21:31; Start 05/10/20 at 21:00 Tizanidine HCl (Zanaflex) 4 mg QHS PO Last administered on 05/15/20 21:32; Start 05/10/20 at 21:00 Ascorbic Acid (Vitamin C) 1,000 mg DAILY PO Last administered on 05/15/20 08:57; Start 05/11/20 at 10:00 Cetirizine HCl (ZyrTEC) 10 mg DAILY PO Last administered on 05/15/20 08:58; Start 05/10/20 at 10:00 Lubiprostone (Amitiza) 24 mcg BIDWMEALS PO Last administered on 7/14/20at 18:35; Start 05/10/20 at 17:00 Metoprolol Succinate (Toprol Xl) 50 mg DAILY PO Last administered on 05/15/20 08:58; Start 05/10/20 at 10:00 Multivitamins (Thera M Plus) 1 tab DAILY PO Last administered on 05/15/20 08:57; Start 05/10/20 at 10:00 Insulin Human Lispro (HumaLOG) 0-7 UNITS TIDACHC SQ Last administered on 05/15/20at 13:08; Start 05/10/20 at 11:30 Dextrose (Dextrose 50%-Water Syringe) 12.5 gm PRN Q15MIN PRN IV SEE COMMENTS; Start 05/10/20 at 09:00 Ceftriaxone Sodium (Rocephin) 1 gm Q24H IVP Last administered on 05/14/20at 17:06; Start 05/10/20 at 18:00; Stop 05/15/20 at 12:58; Status DC Nystatin (Nystop) 1 jose miguel BID TP Last administered on 05/15/20at 21:32; Start 05/10/20 at 12:45 Methylprednisolone Acetate (DEPO-Medrol 40MG VIAL) 40 mg 1X ONCE IM Last administered on 05/10/20at 14:23; Start 05/10/20 at 13:45; Stop 05/10/20 at 13:46; Status DC Bupivacaine HCl (Sensorcaine-Mpf 0.25%) 10 ml 1X ONCE IJ Last administered on 05/10/20at 13:45; Start 05/10/20 at 13:45; Stop 05/10/20 at 13:46; Status DC Acetaminophen/ Hydrocodone Bitart (Lortab 10/325) 1 tab PRN Q6HRS PRN PO SEVERE PAIN 7-10 Last administered on 05/16/20 04:32; Start 05/10/20 at 14:00 Bisacodyl (Dulcolax Tab) 10 mg DAILY PO Last administered on 05/15/20 08:57; Start 05/11/20 at 10:00 Senna/Docusate Sodium (Senna Plus) 1 tab BID PO Last administered on 05/15/20at 08:57; Start 05/11/20 at 10:00 Hydralazine HCl (Apresoline Inj) 10 mg PRN Q4HRS PRN IVP ELEVATED BP, SEE COMMENTS; Start 05/11/20 at 11:15 Psyllium Hydrophilic Mucilloid (Metamucil Fiber Packet) 1 pkt DAILY PO Last administered on 05/15/20at 08:59; Start 05/11/20 at 12:00 Lactobacillus Rhamnosus (Culturelle) 1 cap BID PO Last administered on 05/15/20at 21:31; Start 05/11/20 at 21:00 Heparin Sodium (Porcine) (Heparin Sodium) 5,000 unit Q8HRS SQ Last administered on 05/16/20at 04:34; Start 05/11/20 at 16:45 Polyethylene Glycol (miraLAX PACKET) 17 gm PRN BID PRN PO CONSTIPATION 1ST CHOICE Last administered on 05/13/20at 12:19; Start 05/12/20 at 15:00 Lactulose (Lactulose) 20 gm PRN DAILY PRN PO CONSTIPATION 2ND CHOICE; Start 05/13/20 at 13:30 Magnesium Citrate (Citroma) 296 ml PRN 1X PRN PO CONSTIPATION ONCE; Start 05/14/20 at 09:15 Furosemide (Lasix) 40 mg DAILY PO Last administered on 05/15/20at 08:57; Start 05/14/20 at 15:00 Lisinopril (Prinivil) 40 mg DAILY PO Last administered on 05/15/20 08:59; Start 05/14/20 at 15:00 Amoxicillin/ Clavulanate Potassium (Augmentin 500/ 125mg) 1 tab BID PO Last administered on 05/15/20at 21:31; Start 05/14/20 at 21:00; Stop 05/25/20 at 22:00 Active Scripts Active Amox Tr-K Clv 500-125 Mg Tab (Amoxicillin/Potassium Clav) 1 Each Tablet 1 Tab PO BID 10 Days Aspirin Ec (Aspirin) 81 Mg Tablet.dr 1 Tab PO DAILY Reported Flomax (Tamsulosin Hcl) 0.4 Mg Cap.er.24h 1 Cap PO HS Fluticasone Propionate Nasal [place] (Fluticasone Propionate) 16 Gm [place].susp 2 [place] NS DAILY Klor-Con M20 (Potassium Chloride) 20 Meq Tab.er.prt 20 Meq PO HS Linzess (Linaclotide) 145 Mcg Capsule 145 Mcg PO 3X/WEEK Fexofenadine Hcl 180 Mg Tablet 1 Tab PO DAILY Potassium Gluconate 99 Mg Tablet 99 Mg PO DAILY Vitamin C (Ascorbic Acid) 500 Mg Capsule.er 1,000 Mg PO DAILY One Daily For Men Tablet (Multivits-Minerals/Fa/Lycopene) 1 Each Tablet 1 Tab PO DAILY 30 Days Iron (Ferrous Sulfate) 325 Mg Tablet 65 Mg PO DAILY Allopurinol 300 Mg Tablet 1 Tab PO DAILY Vitamin D2 (Ergocalciferol (Vitamin D2)) 50,000 Unit Capsule 50,000 Unit PO WEEKLY Dose given on the Take on Pantoprazole Sodium (Pantoprazole Sodium) 40 Mg Tablet.dr 1 Tab PO DAILY Gave this morning take tomorrow morning Tizanidine Hcl 4 Mg Tablet 1 Tab PO QHS Gave dose last night Take tonight before bedtime Vascepa (Icosapent Ethyl) 1 Gm Capsule 1 Gm PO Not given on this admission Take as previoulsy instructed Atorvastatin Calcium 20 Mg Tablet 1 Tab PO DAILY Gave last night Take tonight Clopidogrel (Clopidogrel Bisulfate) 75 Mg Tablet 1 Tab PO DAILY Gave this morning take tomorrow morning Isosorbide Mononitrate Er (Isosorbide Mononitrate) 30 Mg Tab.er.24h 60 Mg PO SETH LY Gave this morning take tomorrow morning Furosemide 40 Mg Tablet 1 Tab PO DAILY Gave this morning take tomorrow morning Repaglinide 1 Mg Tablet 1 Mg PO Not given on this admission Continue as previously instructed Toprol Xl (Metoprolol Succinate) 50 Mg Tab.er.24h 1 Tab PO DAILY Gave this morning take tomorrow morning Vitals/I & O Vital Sign - Last 24 Hours 05/15/20 05/15/20 05/15/20 05/15/20 08:58 08:58 08:59 11:00 Temp 98.4 98.4 Pulse 64 64 64 85 Resp 18 B/P (MAP) 139/63 139/63 139/63 142/56 (84) Pulse Ox 95 O2 Delivery Room Air 05/15/20 05/15/20 05/15/20 05/15/20 13:01 14:56 15:00 19:06 Temp 98.2 98.2 Pulse 70 Resp 18 B/P (MAP) 126/59 (81) Pulse Ox 95 95 93 93 O2 Delivery Room Air Room Air Room Air Room Air 05/15/20 05/15/20 05/15/20 05/15/20 19:47 20:00 20:06 23:19 Temp 98.1 97.6 98.1 97.6 Pulse 64 71 Resp 16 20 16 B/P (MAP) 119/54 (75) 119/56 (77) Pulse Ox 93 93 93 O2 Delivery Room Air Room Air Room Air Room Air 05/16/20 05/16/20 05/16/20 05/16/20 03:51 04:32 05:32 07:00 Temp 97.3 97.5 97.3 97.5 Pulse 66 57 Resp 18 22 20 18 B/P (MAP) 124/45 (71) 124/67 (86) Pulse Ox 95 95 95 94 O2 Delivery Room Air Room Air BiPAP/CPAP Room Air Intake and Output 05/15/20 05/15/20 05/16/20 15:00 23:00 07:00 Intake Total 280 ml 600 ml Output Total 250 ml Balance 30 ml 600 ml Justicifation of Admission Dx: Justifications for Admission: Justification of Admission Dx: Yes SHANTANU SOLORIO MD May 16, 2020 08:56
[2020-05-16] MEDS: LISINOPRIL 20 MG TABLET PO SCH (09:00)
[2020-05-16] MEDS: FUROSEMIDE 40 MG TABLET. PO SCH (09:00)
[2020-05-16] MEDS: FERROUS SULFATE 325 MG TABLET. PO SCH (09:06)
[2020-05-16] MEDS: ISOSORBIDE MONONITRATE ER 30 MG TAB.ER.24H PO SCH (09:06)
[2020-05-16] MEDS: LACTOBACILLUS RHAMNOSUS GG 1 CAPSULE. PO SCH (09:07)
[2020-05-16] MEDS: ASPIRIN ENTERIC COATED 81 MG TABLET.DR. PO SCH (09:07)
[2020-05-16] MEDS: LUBIPROSTONE 24 MCG CAPSULE PO SCH (09:07)
[2020-05-16] MEDS: PSYLLIUM HUSK (SUGAR FREE) 1 PKT PACKET PO SCH (09:07)
[2020-05-16] MEDS: ALLOPURINOL 100 MG TABLET. PO SCH (09:07)
[2020-05-16] MEDS: AMOXICILLIN/K CLAV 500/125MG TABLET. PO SCH (09:07)
[2020-05-16] MEDS: METOPROLOL SUCC 24HR ER 50 MG TAB.ER.24H. PO SCH (09:08)
[2020-05-16] MEDS: MULTIVITAMIN with MINERAL TABLET. PO SCH (09:08)
[2020-05-16] MEDS: CETIRIZINE HCL 10 MG TABLET. PO SCH (09:08)
[2020-05-16] MEDS: ATORVASTATIN CALCIUM 20 MG TABLET PO SCH (09:08)
[2020-05-16] MEDS: BISACODYL 5 MG TABLET.DR. PO SCH (09:08)
[2020-05-16] MEDS: SENNOSIDES/DOCUSATE 8.6/50MG TABLET. PO SCH (09:08)
[2020-05-16] MEDS: CLOPIDOGREL BISULFATE 75 MG TABLET PO SCH (09:08)
[2020-05-16] MEDS: PANTOPRAZOLE 40 MG TABLET.DR. PO SCH (09:08)
[2020-05-16] MEDS: ASCORBIC ACID 500 MG TABLET PO SCH (09:08)
[2020-05-16] MEDS: FLUTICASONE 50MCG/NASAL SPRAY 16GM BOTTLE. NS SCH (09:09)
[2020-05-16] MEDS: NYSTATIN TOPICAL POWDER 15GM BOTTLE. TP SCH (09:09)
[2020-05-16] MEDS: LIDOCAINE (700MG/PATCH) PATCH. TD SCH (09:09)
[2020-05-16] MEDS: INSULIN LISPRO 300 UNITS/3 ML VIAL. SQ SCH (09:14)
[2020-05-16 11:00] VITALS: BP 122/53
--- NOTE | 2020-05-16 11:02 | NUR ---
SS following up with discharge planning. Discharge orders received for home with home healthcare. SS phoned and faxed discharge orders to [facility], ; fax [phone]. Pt reporting that he will discuss with spouse and notify SS if he will need transportation to home. Pt reported that his spouse is at an appt at [facility] this morning and there is no one home to receive him at this time. Pt's RN notified. SS will continue to follow for discharge planning.
--- NOTE | 2020-05-16 11:23 | NUR ---
SS following up with discharge planning. Pt's spouse currently in room with pt and reported that she will transport pt to home. Pt's RN notified.
--- NOTE | 2020-05-16 13:29 | NUR ---
Discharge Note: HARPREET HERR Discharge instructions and discharge home medications reviewed with Patient and his and a copy given. All questions have been answered and understanding verbalized. The following instructions and handouts were given: urosepsis and SONIYA. Discontinued iv line and catheter intact. Patient discharged to home with home health via private vehicle.
--- NOTE | 2020-05-16 13:32 | PDOC3 ---
Discharge Summary Visit Information Date of Admission: May 09, 2020 Date of Discharge: May 16, 2020 Final Diagnosis Problems Medical Problems: (1) SONIYA (acute kidney injury) Status: Acute (2) Urinary tract infection Status: Acute Brief Hospital Course Allergies Allergies Coded Allergies Type Severity Reaction Last Updated Verified No Known Drug Allergies 06/11/16 No Vital Signs GENERAL: No apparent distress. Alert and oriented. HEENT: Head normocephalic, atraumatic. NECK: Supple LUNGS: Clear to auscultation. HEART: RRR, S1, S2 present, pulses intact ABDOMEN: Soft, positive bowel sounds. EXTREMITIES: No cyanosis or edema. NEUROLOGIC: Normal speech, normal tone PSYCHIATRIC: Normal affect, normal mood. SKIN: No ulceration. Vital Signs Date Time Temp Pulse Resp B/P (MAP) Pulse Ox O2 Delivery O2 Flow Rate FiO2 05/16/20 11:00 97.5 71 18 122/53 (76) 92 Room Air 97.5 Lab Results Laboratory Tests Test 05/14/20 16:46 05/14/20 20:52 05/15/20 08:14 05/15/20 11:57 Glucose (Fingerstick) 154 mg/dL (70-99) 215 mg/dL (70-99) 145 mg/dL (70-99) 178 mg/dL (70-99) Test 05/15/20 17:06 05/15/20 21:14 05/16/20 06:20 05/16/20 07:44 Glucose (Fingerstick) 138 mg/dL (70-99) 168 mg/dL (70-99) 162 mg/dL (70-99) Sodium Level 139 mmol/L (136-145) Potassium Level 4.6 mmol/L (3.5-5.1) Chloride Level 102 mmol/L (98-107) Carbon Dioxide Level 27 mmol/L (21-32) Anion Gap 10 (6-14) Blood Urea Nitrogen 34 mg/dL (8-26) Creatinine 1.7 mg/dL (0.7-1.3) Estimated GFR (Cockcroft-Gault) 40.4 Glucose Level 193 mg/dL (70-99) Calcium Level 8.8 mg/dL (8.5-10.1) Magnesium Level 2.7 mg/dL (1.8-2.4) Laboratory Tests Test 05/15/20 17:06 05/15/20 21:14 05/16/20 06:20 05/16/20 07:44 Glucose (Fingerstick) 138 mg/dL (70-99) 168 mg/dL (70-99) 162 mg/dL (70-99) Sodium Level 139 mmol/L (136-145) Potassium Level 4.6 mmol/L (3.5-5.1) Chloride Level 102 mmol/L (98-107) Carbon Dioxide Level 27 mmol/L (21-32) Anion Gap 10 (6-14) Blood Urea Nitrogen 34 mg/dL (8-26) Creatinine 1.7 mg/dL (0.7-1.3) Estimated GFR (Cockcroft-Gault) 40.4 Glucose Level 193 mg/dL (70-99) Calcium Level 8.8 mg/dL (8.5-10.1) Magnesium Level 2.7 mg/dL (1.8-2.4) Brief Hospital Course Mr Drake is a 69 yo M w/ PMHx CAD s/p stents, DM2, GERD, HLD, HTN, chronic back pain, constipation, and recent diagnosis of BPH who presents with generalized weakness for 2 days. Patient reports that he is being treated for urinary tract infection but when he and his reduce his medications they are actually finasteride and tamsulosin. Patient reports that he was trying to get out of bed and ambulate with his walker when he fell due to his weakness on 05/09/2020, he thinks his left SI joint is in some of the worst pain of his life. He denies hitting his head or any loss of consciousness. Patient is reporting dysuria and frequency but reports that he does have urinary frequency due to his Lasix. He also notes some right lower quadrant abdominal pain and has red inflamed pannus. Patient is also reporting a cough, increasing shortness of breath worse with exertion, nausea and vomiting, fever, but has been afebrile here and chest x-ray was clear. Patient denies any abdominal pain, dizziness, focal deficit, or chest pain. He reports that he has chronic diarrhea. He is unable to stand with me Labs significant for WBC 10.4 Hb 13.8 BUN 47 creatinine 2.3 UA positive for blood and leukocyte esterase lactate 2.6 mag 1.7 albumin 3.1. Admitted for further care. A/P: Fall - unable to walk, has intractable left lower back pain, h/o SI joint injection. PT and PMR consulted. patient refusing placement wants to go home wit hPT UTI in male - has been on cipro in the past month, recently seen by Dr. Lamas, started on BPH meds. E. coli and Klebsiella pneumonia in urine greater than 100,000 CFU. Sensitive to Augmentin and Rocephin, resistant to cipro. Will cont rocephin and d/c home on 10 days augmentin BID BPH - cont meds Panniculitis - with prior balanitis, will use topical nystatin powder. Cont rocephin CAD - past stent, clinically stable HTN - controlled Morbid obesity with SUSANA: CPAP at home DM2 - sliding scale SONIYA on CKD - Cr down to 1.7 from 1.9. This was certainly vasomotor nephropathy given creatine of 1.7 at discharge. hold lasix, metformin and lisinopril at discharge. needs follow up BMP. outpatient cards follow up. home health with home PT. script for augmentin given at discharge for 10 days. Discharge Information Condition at Discharge: Improved Follow Up: Weeks Disposition/Orders: D/C to Home w/ HH Scheduled Allopurinol (Allopurinol) 300 Mg Tablet, 1 TAB PO DAILY for Hyperunicemia, #30 Ref 5 (Reported) Entered as Reported by: MASHA BARAHONA on 05/09/202337 Last Taken: Unknown Dose on 05/09/20899 Last Action: Continued on 05/10/20846 by TIMA LEDESMA MD Amoxicillin/Potassium Clav (Amox Tr-K Clv 500-125 Mg Tab) 1 Each Tablet, 1 TAB PO BID for uti for 10 Days, #20 Prescribed by: KATH CABALLERO MD on 05/15/20 1323 Ascorbic Acid (Vitamin C) 500 Mg Capsule.er, 1,000 MG PO DAILY for supplement, (Reported) Entered as Reported by: MASHA BARAHONA on 05/09/202337 Last Taken: Unknown Dose on 05/09/20899 Last Action: Converted on 05/10/20846 by TIMA LEDESMA MD Aspirin (Aspirin Ec) 81 Mg Tablet., 1 TAB PO DAILY for CAD, #30 Ref 3 Prescribed by: YAYO RAJAN on 02/21/20 1259 Last Taken: Unknown Dose on 05/09/20899 Last Action: Continued on 05/10/20846 by TIMA LEDESMA MD Atorvastatin Calcium (Atorvastatin Calcium) 20 Mg Tablet, 1 TAB PO DAILY, #30 Ref 5 (Reported) Gave last night Take tonight Entered as Reported by: STACY CARTAGENA on 09/23/14210 Last Taken: Unknown Dose on 05/08/202099 Last Action: Continued on 05/10/20846 by TIMA LEDESMA MD Clopidogrel Bisulfate (Clopidogrel) 75 Mg Tablet, 1 TAB PO DAILY, #90 Ref 1 (Reported) Gave this morning take tomorrow morning Entered as Reported by: STACY CARTAGENA on 09/23/14210 Last Taken: Unknown Dose on 05/09/20899 Last Action: Continued on 05/10/20846 by TIMA LEDESMA MD Ergocalciferol (Vitamin D2) (Vitamin D2) 50,000 Unit Capsule, 50,000 UNIT PO W FREDO, (Reported) Dose given on the Take on Entered as Reported by: NARCISA TOURE on 05/29/16 0020 Last Taken: Unknown Dose on 05/03/20899 Last Action: Last Taken Edited on 05/09/202337 by MASHA BARAHONA Ferrous Sulfate (Iron) 325 Mg Tablet, 65 MG PO DAILY for anemia, (Reported) Entered as Reported by: MASHA BARAHONA on 05/09/202337 Last Taken: Unknown Dose on 05/09/20899 Last Action: Continued on 05/10/20846 by TIMA LEDESMA MD Fexofenadine Hcl (Fexofenadine Hcl) 180 Mg Tablet, 1 TAB PO DAILY for allergies, #30 Ref 5 (Reported) Entered as Reported by: MASHA BARAHONA on 05/09/202337 Last Taken: Unknown Dose on 05/09/20899 Last Action: Converted on 05/10/20846 by TIMA LEDESMA MD Fluticasone Propionate (Fluticasone Propionate Nasal [place]) 16 Gm [place].susp, 2 SPR[place] NS DAILY for allergies, #1 Ref 11 (Reported) Entered as Reported by: MASHA BARAHONA on 05/09/202337 Last Taken: Unknown Dose on 05/09/20899 Last Action: Continued on 05/10/20846 by TIMA LEDESMA MD Isosorbide Mononitrate (Isosorbide Mononitrate Er) 30 Mg Tab.er.24h, 60 MG PO DAILY, #30 Ref 5 (Reported) Gave this morning take tomorrow morning Entered as Reported by: STACY CARTAGENA on 09/23/14210 Last Taken: Unknown Dose on 05/09/20899 Last Action: Continued on 05/10/20846 by TIMA LEDESMA MD Linaclotide (Linzess) 145 Mcg Capsule, 145 MCG PO 3X/WEEK for IRRITABLE BOWEL, (Reported) Entered as Reported by: MASHA BARAHONA on 05/09/202337 Last Taken: Unknown Dose on 05/09/20 1200 Last Action: Converted on 05/10/20846 by TIMA LEDESMA MD Metoprolol Succinate (Toprol Xl) 50 Mg Tab.er.24h, 1 TAB PO DAILY, #30 Ref 5 (Reported) Gave this morning take tomorrow morning Entered as Reported by: STACY CARTAGENA on 09/23/14210 Last Taken: Unknown Dose on 05/09/20899 Last Action: Converted on 05/10/20846 by TIMA LEDESMA MD Multivits-Minerals/Fa/Lycopene (One Daily For Men Tablet) 1 Each Tablet, 1 TAB PO DAILY for supplement for 30 Days, #30 Ref 0 (Reported) Entered as Reported by: MASHA BARAHONA on 05/09/202337 Last Taken: Unknown Dose on 05/09/20899 Last Action: Converted on 05/10/20846 by TIMA LEDESMA MD Pantoprazole Sodium (Pantoprazole Sodium ) 40 Mg Tablet.dr, 1 TAB PO DAILY, #30 Ref 3 (Reported) Gave this morning take tomorrow morning Entered as Reported by: NABILA WHYTE on 04/30/162157 Last Taken: Unknown Dose on 05/09/20899 Last Action: Continued on 05/10/20846 by TIMA LEDESMA MD Potassium Chloride (Klor-Con M20) 20 Meq Tab.er.prt, 20 MEQ PO HS for low potassium, (Reported) Entered as Reported by: MASHA BARAHONA on 05/09/202337 Last Taken: Unknown Dose on 05/08/202099 Last Action: New Order on 05/09/202337 by MASHA BARAHONA Potassium Gluconate (Potassium Gluconate) 99 Mg Tablet, 99 MG PO DAILY for low potassium, (Reported) Entered as Reported by: MASHA BARAHONA on 05/09/202337 Last Taken: Unknown Dose on 05/09/20899 Last Action: New Order on 05/09/202337 by MASHA BARAHONA Tamsulosin Hcl (Flomax) 0.4 Mg Cap.er.24h, 1 CAP PO HS for BPH, #30 Ref 11 (Reported) Entered as Reported by: MASHA BARAHONA on 05/09/202337 Last Taken: Unknown Dose on 05/08/202099 Last Action: Continued on 05/10/20846 by TIMA LEDESMA MD Tizanidine Hcl (Tizanidine Hcl) 4 Mg Tablet, 1 TAB PO QHS, #30 (Reported) Gave dose last night Take tonight before bedtime Entered as Reported by: SNEHA JENKINS on 05/31/15 0844 Last Taken: Unknown Dose on 05/08/202099 Last Action: Continued on 05/10/20846 by TIMA LEDESMA MD Miscellaneous Medications Icosapent Ethyl (Vascepa) 1 Gm Capsule, 1 GM PO, (Reported) Not given on this admission Take as previoulsy instructed Entered as Reported by: STACY CARTAGENA on 09/23/14210 Last Taken: Unknown Dose on 05/09/20899 Last Action: Last Taken Edited on 05/09/202314 by MASHA BARAHONA Repaglinide (Repaglinide) 1 Mg Tablet, 1 MG PO, (Reported) Not given on this admission Continue as previously instructed Entered as Reported by: STACY CARTAGENA on 09/23/14210 Last Taken: Unknown Dose on 05/09/20 1200 Last Action: Last Taken Edited on 05/09/202337 by MASHA BARAHONA Discontinued Medications Lisinopril (Lisinopril) 40 Mg Tablet, 1 TAB PO BID for HTN, #30 Ref 5 (Reported) Entered as Reported by: MASHA BARAHONA on 05/09/202337 Last Taken: Unknown Dose on 05/09/20899 Last Action: New Order on 05/09/202337 by MASHA BARAHONA Metformin Hcl (Metformin Hcl) 1,000 Mg Tablet, 1,000 MG PO BIDWMEALS for ANTI-DIABETIC, Ref 0 (Reported) Entered as Reported by: MASHA BARAHONA on 05/09/202337 Last Taken: Unknown Dose on 05/09/20899 Last Action: New Order on 05/09/202337 by MASHA BARAHONA Justicifation of Admission Dx: Justifications for Admission: Justification of Admission Dx: Yes KATH CABALLERO MD May 16, 2020 13:32
--- NOTE | 2020-05-16 15:55 | PDOC ---
PROGRESS NOTES Subjective Subjective Patient seen and examined Objective Objective Vital Signs Date Time Temp Pulse Resp B/P (MAP) Pulse Ox O2 Delivery O2 Flow Rate FiO2 05/16/20 11:00 97.5 71 18 122/53 (76) 92 Room Air 97.5 Intake and Output 05/16/20 07:00 Intake Total 880 ml Output Total 250 ml Balance 630 ml Intake Oral 880 ml Output Urine Total 250 ml # Voids 8 Physical Exam Abdomen: Normal bowel sounds Heart: Regular rate General: mild distress Lungs: Clear to auscultation Assessment Assessment Problems Medical Problems: (1) SONIYA (acute kidney injury) Status: Acute (2) Urinary tract infection Status: Acute Weakness with mechanical fall. Back pain has significantly improved. Dr. Dunaway following CAD: PCI/stent x2 in 2012, clinically stable. No chest pain. Continue medical treatment. Hypertension; controlled Hyperlipiemia; statin SONIYA on CKD; Cr improved Morbid obesity. SUSANA with CPAP Chronic diastolic CHF: compensated Comment Review of Relevant I have reviewed the following items jm (where applicable) has been applied. Labs Laboratory Tests Test 05/14/20 16:46 05/14/20 20:52 05/15/20 08:14 05/15/20 11:57 Glucose (Fingerstick) 154 mg/dL (70-99) 215 mg/dL (70-99) 145 mg/dL (70-99) 178 mg/dL (70-99) Test 05/15/20 17:06 05/15/20 21:14 05/16/20 06:20 05/16/20 07:44 Glucose (Fingerstick) 138 mg/dL (70-99) 168 mg/dL (70-99) 162 mg/dL (70-99) Sodium Level 139 mmol/L (136-145) Potassium Level 4.6 mmol/L (3.5-5.1) Chloride Level 102 mmol/L (98-107) Carbon Dioxide Level 27 mmol/L (21-32) Anion Gap 10 (6-14) Blood Urea Nitrogen 34 mg/dL (8-26) Creatinine 1.7 mg/dL (0.7-1.3) Estimated GFR (Cockcroft-Gault) 40.4 Glucose Level 193 mg/dL (70-99) Calcium Level 8.8 mg/dL (8.5-10.1) Magnesium Level 2.7 mg/dL (1.8-2.4) Laboratory Tests Test 05/15/20 17:06 05/15/20 21:14 05/16/20 06:20 05/16/20 07:44 Glucose (Fingerstick) 138 mg/dL (70-99) 168 mg/dL (70-99) 162 mg/dL (70-99) Sodium Level 139 mmol/L (136-145) Potassium Level 4.6 mmol/L (3.5-5.1) Chloride Level 102 mmol/L (98-107) Carbon Dioxide Level 27 mmol/L (21-32) Anion Gap 10 (6-14) Blood Urea Nitrogen 34 mg/dL (8-26) Creatinine 1.7 mg/dL (0.7-1.3) Estimated GFR (Cockcroft-Gault) 40.4 Glucose Level 193 mg/dL (70-99) Calcium Level 8.8 mg/dL (8.5-10.1) Magnesium Level 2.7 mg/dL (1.8-2.4) Microbiology 05/09/20 Urine Culture - Final, Complete 05/09/20 Antimicrobic Susceptibility - Final, Complete Medications Current Medications Lidocaine (Lidoderm) 1 patch DAILY TD Last administered on 05/16/20at 09:09; Start 05/10/20 at 09:00; Stop 05/16/20 at 13:28; Status DC Lidocaine (Lidoderm) 1 patch STK-MED ONCE .ROUTE ; Start 05/09/20 at 17:58; Stop 05/09/20 at 17:58; Status DC Acetaminophen (Tylenol) 1,000 mg 1X ONCE PO Last administered on 05/09/20at 18: 28; Start 05/09/20 at 18:15; Stop 05/09/20 at 18:21; Status DC Ceftriaxone Sodium (Rocephin) 1 gm 1X ONCE IVP Last administered on 05/09/20at 18:28; Start 05/09/20 at 18:15; Stop 05/09/20 at 18:21; Status DC Acetaminophen/ Hydrocodone Bitart (Lortab 5/325) 1 tab 1X ONCE PO Last administered on 05/09/20at 21:00; Start 05/09/20 at 21:00; Stop 05/09/20 at 21:04; Status DC Acetaminophen/ Hydrocodone Bitart (Lortab 5/325) 1 tab PRN Q4HRS PRN PO MODERATE PAIN 4-6 Last administered on 05/11/20 21:28; Start 05/10/20 at 00:15; Stop 05/16/20 at 13:28; Status DC Allopurinol (Zyloprim) 100 mg DAILY PO Last administered on 05/16/20 09:07; Start 05/10/20 at 10:00; Stop 05/16/20 at 13:28; Status DC Aspirin (Ecotrin) 81 mg DAILY PO Last administered on 05/16/20 09:07; Start 05/10/20 at 09:30; Stop 05/16/20 at 13:28; Status DC Atorvastatin Calcium (Lipitor) 20 mg DAILY PO Last administered on 05/16/20 09:08; Start 05/10/20 at 10:00; Stop 05/16/20 at 13:28; Status DC Clopidogrel Bisulfate (Plavix) 75 mg DAILY PO Last administered on 05/16/20 09:08; Start 05/10/20 at 10:00; Stop 05/16/20 at 13:28; Status DC Ferrous Sulfate (Feosol) 325 mg DAILY PO Last administered on 05/16/20 09:06; Start 05/10/20 at 10:00; Stop 05/16/20 at 13:28; Status DC Fluticasone Propionate (Flonase) 2 spray DAILY NS Last administered on 05/16/20 09:09; Start 05/10/20 at 10:00; Stop 05/16/20 at 13:28; Status DC Isosorbide Mononitrate (Imdur) 60 mg DAILY PO Last administered on 05/16/20 09:06; Start 05/10/20 at 10:00; Stop 05/16/20 at 13:28; Status DC Pantoprazole Sodium (Protonix) 40 mg DAILY PO Last administered on 05/16/20 09:08; Start 05/10/20 at 10:00; Stop 05/16/20 at 13:28; Status DC Tamsulosin HCl (Flomax) 0.4 mg HS PO Last administered on 05/15/20 21:31; Start 05/10/20 at 21:00; Stop 05/16/20 at 13:28; Status DC Tizanidine HCl (Zanaflex) 4 mg QHS PO Last administered on 05/15/20at 21:32; Start 05/10/20 at 21:00; Stop 05/16/20 at 13:28; Status DC Ascorbic Acid (Vitamin C) 1,000 mg DAILY PO Last administered on 05/16/20at 09:08; Start 05/11/20 at 10:00; Stop 05/16/20 at 13:28; Status DC Cetirizine HCl (ZyrTEC) 10 mg DAILY PO Last administered on 05/16/20at 09:08; Start 05/10/20 at 10:00; Stop 05/16/20 at 13:28; Status DC Lubiprostone (Amitiza) 24 mcg BIDWMEALS PO Last administered on 05/16/20at 09:07; Start 05/10/20 at 17:00; Stop 05/16/20 at 13:28; Status DC Metoprolol Succinate (Toprol Xl) 50 mg DAILY PO Last administered on 05/16/20at 09:08; Start 05/10/20 at 10:00; Stop 05/16/20 at 13:28; Status DC Multivitamins (Thera M Plus) 1 tab DAILY PO Last administered on 05/16/20 09:08; Start 05/10/20 at 10:00; Stop 05/16/20 at 13:28; Status DC Insulin Human Lispro (HumaLOG) 0-7 UNITS TIDACHC SQ Last administered on 05/16/20at 09:14; Start 05/10/20 at 11:30; Stop 05/16/20 at 13:28; Status DC Dextrose (Dextrose 50%-Water Syringe) 12.5 gm PRN Q15MIN PRN IV SEE COMMENTS; Start 05/10/20 at 09:00; Stop 05/16/20 at 13:29; Status DC Ceftriaxone Sodium (Rocephin) 1 gm Q24H IVP Last administered on 05/14/20at 17:06; Start 05/10/20 at 18:00; Stop 05/15/20 at 12:58; Status DC Nystatin (Nystop) 1 jose miguel BID TP Last administered on 05/16/20at 09:09; Start 05/10/20 at 12:45; Stop 05/16/20 at 13:29; Status DC Methylprednisolone Acetate (DEPO-Medrol 40MG VIAL) 40 mg 1X ONCE IM Last administered on 05/10/20at 14:23; Start 05/10/20 at 13:45; Stop 05/10/20 at 13:46; Status DC Bupivacaine HCl (Sensorcaine-Mpf 0.25%) 10 ml 1X ONCE IJ Last administered on 05/10/20at 13:45; Start 05/10/20 at 13:45; Stop 05/10/20 at 13:46; Status DC Acetaminophen/ Hydrocodone Bitart (Lortab 10/325) 1 tab PRN Q6HRS PRN PO SEVERE PAIN 7-10 Last administered on 05/16/20at 04:32; Start 05/10/20 at 14:00; Stop 05/16/20 at 13:29; Status DC Bisacodyl (Dulcolax Tab) 10 mg DAILY PO Last administered on 05/16/20at 09:08; Start 05/11/20 at 10:00; Stop 05/16/20 at 13:29; Status DC Senna/Docusate Sodium (Senna Plus) 1 tab BID PO Last administered on 05/16/20at 09:08; Start 05/11/20 at 10:00; Stop 05/16/20 at 13:29; Status DC Hydralazine HCl (Apresoline Inj) 10 mg PRN Q4HRS PRN IVP ELEVATED BP, SEE C OMMENTS; Start 05/11/20 at 11:15; Stop 05/16/20 at 13:29; Status DC Psyllium Hydrophilic Mucilloid (Metamucil Fiber Packet) 1 pkt DAILY PO Last administered on 05/16/20at 09:07; Start 05/11/20 at 12:00; Stop 05/16/20 at 13:29; Status DC Lactobacillus Rhamnosus (Culturelle) 1 cap BID PO Last administered on 05/16/20at 09:07; Start 05/11/20 at 21:00; Stop 05/16/20 at 13:29; Status DC Heparin Sodium (Porcine) (Heparin Sodium) 5,000 unit Q8HRS SQ Last administered on 05/16/20at 04:34; Start 05/11/20 at 16:45; Stop 05/16/20 at 13:29; Status DC Polyethylene Glycol (miraLAX PACKET) 17 gm PRN BID PRN PO CONSTIPATION 1ST CHOICE Last administered on 05/13/20at 12:19; Start 05/12/20 at 15:00; Stop 05/16/20 at 13:29; Status DC Lactulose (Lactulose) 20 gm PRN DAILY PRN PO CONSTIPATION 2ND CHOICE; Start 05/13/20 at 13:30; Stop 05/16/20 at 13:29; Status DC Magnesium Citrate (Citroma) 296 ml PRN 1X PRN PO CONSTIPATION ONCE; Start 05/14/20 at 09:15; Stop 05/16/20 at 13:29; Status DC Furosemide (Lasix) 40 mg DAILY PO Last administered on 05/15/20at 08:57; Start 05/14/20 at 15:00; Stop 05/16/20 at 13:29; Status DC Lisinopril (Prinivil) 40 mg DAILY PO Last administered on 05/15/20at 08:59; Start 05/14/20 at 15:00; Stop 05/16/20 at 13:29; Status DC Amoxicillin/ Clavulanate Potassium (Augmentin 500/ 125mg) 1 tab BID PO Last administered on 05/16/20at 09:07; Start 05/14/20 at 21:00; Stop 05/16/20 at 13:29; Status DC Active Scripts Active Amox Tr-K Clv 500-125 Mg Tab (Amoxicillin/Potassium Clav) 1 Each Tablet 1 Tab PO BID 10 Days Aspirin Ec (Aspirin) 81 Mg Tablet.dr 1 Tab PO DAILY Reported Flomax (Tamsulosin Hcl) 0.4 Mg Cap.er.24h 1 Cap PO HS Fluticasone Propionate Nasal [place] (Fluticasone Propionate) 16 Gm [place].susp 2 [place] NS DAILY Klor-Con M20 (Potassium Chloride) 20 Meq Tab.er.prt 20 Meq PO HS Linzess (Linaclotide) 145 Mcg Capsule 145 Mcg PO 3X/WEEK Fexofenadine Hcl 180 Mg Tablet 1 Tab PO DAILY Potassium Gluconate 99 Mg Tablet 99 Mg PO DAILY Vitamin C (Ascorbic Acid) 500 Mg Capsule.er 1,000 Mg PO DAILY One Daily For Men Tablet (Multivits-Minerals/Fa/Lycopene) 1 Each Tablet 1 Tab PO DAILY 30 Days Iron (Ferrous Sulfate) 325 Mg Tablet 65 Mg PO DAILY Allopurinol 300 Mg Tablet 1 Tab PO DAILY Vitamin D2 (Ergocalciferol (Vitamin D2)) 50,000 Unit Capsule 50,000 Unit PO WEEKLY Dose given on the Take on Pantoprazole Sodium (Pantoprazole Sodium) 40 Mg Tablet.dr 1 Tab PO DAILY Gave this morning take tomorrow morning Tizanidine Hcl 4 Mg Tablet 1 Tab PO QHS Gave dose last night Take tonight before bedtime Vascepa (Icosapent Ethyl) 1 Gm Capsule 1 Gm PO Not given on this admission Take as previoulsy instructed Atorvastatin Calcium 20 Mg Tablet 1 Tab PO DAILY Gave last night Take tonight Clopidogrel (Clopidogrel Bisulfate) 75 Mg Tablet 1 Tab PO DAILY Gave this morning take tomorrow morning Isosorbide Mononitrate Er (Isosorbide Mononitrate) 30 Mg Tab.er.24h 60 Mg PO DAILY Gave this morning take tomorrow morning Repaglinide 1 Mg Tablet 1 Mg PO Not given on this admission Continue as previously instructed Toprol Xl (Metoprolol Succinate) 50 Mg Tab.er.24h 1 Tab PO DAILY Gave this morning take tomorrow morning Vitals/I & O Vital Sign - Last 24 Hours 05/15/20 05/15/20 05/15/20 05/15/20 19:06 19:47 20:00 20:06 Temp 98.1 98.1 Pulse 64 Resp 16 20 B/P (MAP) 119/54 (75) Pulse Ox 93 93 93 O2 Delivery Room Air Room Air Room Air Room Air 05/15/20 05/16/20 05/16/20 05/16/20 23:19 03:51 04:32 05:32 Temp 97.6 97.3 97.6 97.3 Pulse 71 66 Resp 16 18 22 20 B/P (MAP) 119/56 (77) 124/45 (71) Pulse Ox 93 95 95 95 O2 Delivery Room Air Room Air Room Air BiPAP/CPAP 05/16/20 05/16/20 05/16/20 05/16/20 07:00 08:00 09:00 09:06 Temp 97.5 97.5 Pulse 57 71 57 Resp 18 B/P (MAP) 124/67 (86) 122/53 124/67 Pulse Ox 94 O2 Delivery Room Air Room Air 05/16/20 05/16/20 09:08 11:00 Temp 97.5 97.5 Pulse 57 71 Resp 18 B/P (MAP) 124/67 122/53 (76) Pulse Ox 92 O2 Delivery Room Air Intake and Output 05/15/20 05/15/20 05/16/20 15:00 23:00 07:00 Intake Total 280 ml 600 ml Output Total 250 ml Balance 30 ml 600 ml Justicifation of Admission Dx: Justifications for Admission: Justification of Admission Dx: Yes JACE AGUSTIN MD May 16, 2020 15:55
--- NOTE | 2020-05-16 15:56 | PDOC ---
CARDIO Progress Notes Date and Time Date of Service 05/16/20 Time of Evaluation 1215 Subjective Subjective: No Chest Pain, No shortness of breath, No Palpitations Vitals Vitals Vital Signs Date Time Temp Pulse Resp B/P (MAP) Pulse Ox O2 Delivery O2 Flow Rate FiO2 05/16/20 11:00 97.5 71 18 122/53 (76) 92 Room Air 97.5 Weight Weight [ ] Input and Output Intake and Output Intake and Output 05/16/20 07:00 Intake Total 880 ml Output Total 250 ml Balance 630 ml Intake Oral 880 ml Output Urine Total 250 ml # Voids 8 Laboratory Labs Laboratory Tests Test 05/15/20 17:06 05/15/20 21:14 05/16/20 06:20 05/16/20 07:44 Glucose (Fingerstick) 138 mg/dL (70-99) 168 mg/dL (70-99) 162 mg/dL (70-99) Sodium Level 139 mmol/L (136-145) Potassium Level 4.6 mmol/L (3.5-5.1) Chloride Level 102 mmol/L (98-107) Carbon Dioxide Level 27 mmol/L (21-32) Anion Gap 10 (6-14) Blood Urea Nitrogen 34 mg/dL (8-26) Creatinine 1.7 mg/dL (0.7-1.3) Estimated GFR (Cockcroft-Gault) 40.4 Glucose Level 193 mg/dL (70-99) Calcium Level 8.8 mg/dL (8.5-10.1) Magnesium Level 2.7 mg/dL (1.8-2.4) Microbiology Micro Microbiology 05/09/20 Urine Culture - Final, Complete 05/09/20 Antimicrobic Susceptibility - Final, Complete Physical Exam HEENT: Neck Supple W Full Motion Chest: Symmetric LUNGS: Clear to Auscultation Heart: S1S2, RRR (SR) Abdomen: Other (obese) Extremities: No Calf Tenderness, Other (trace bilateral LE pitting edema) Neurology: alert, oriented, follow commands Assessment Assessment 1. Weakness with mechanical fall, back pain 2. CAD: PCI/stent x2 in 2012, clinically stable 3. Hypertension; controlled 4. Hyperlipiemia; statin 5. Diabetes, II 6. SONIYA on CKD; Cr improved 7. Hypomagnesemia; resolved 8. Morbid obesity. SUSANA with CPAP 9. UTI; antibiotic therapy 10. BPH 11. Chronic diastolic CHF: clinically compensated Recommendations Continue secondary prevention measures. ASA/Plavix. Oral Lasix therapy Consider outpatient ischemic evaluation Supportive care Okay to discharge from a CV standpoint F/u in our office with Dr. Koenig as scheduled. Justicifation of Admission Dx: Justifications for Admission: Justification of Admission Dx: Yes LUNA MACIAS APRN May 16, 2020 15:56
== END 2020-05-16 13:28 | disposition home health service (06) | DRG 871 ==
LOC: ER 16:26 → ED HOLD 18:25 → 2 NORTH 21:29
PROVIDERS: ADMIT Family Medicine; ATTEND Family Medicine
PROC: 3E0U33Z Introduction of Anti-inflammatory into Joints, Percutaneous Approach (ICD-10-PCS; principal; 2020-05-11)
PROC: 3E0U3BZ Introduction of Anesthetic Agent into Joints, Percutaneous Approach (ICD-10-PCS; 2020-05-11)
DX: A41.9 Sepsis, unspecified organism (principal); N17.0 Acute kidney failure with tubular necrosis; N39.0 Urinary tract infection, site not specified; I13.0 Hypertensive heart and chronic kidney disease with heart failure and stage 1 through stage 4 chronic kidney disease, or unspecified chronic kidney disease; I50.32 Chronic diastolic (congestive) heart failure; Z16.23 Resistance to quinolones and fluoroquinolones; B96.1 Klebsiella pneumoniae [K. pneumoniae] as the cause of diseases classified elsewhere; D64.9 Anemia, unspecified; E11.22 Type 2 diabetes mellitus with diabetic chronic kidney disease; E11.42 Type 2 diabetes mellitus with diabetic polyneuropathy; E11.51 Type 2 diabetes mellitus with diabetic peripheral angiopathy without gangrene; E66.01 Morbid (severe) obesity due to excess calories; E78.00 Pure hypercholesterolemia, unspecified; E78.5 Hyperlipidemia, unspecified; E83.42 Hypomagnesemia; G47.33 Obstructive sleep apnea (adult) (pediatric); G89.29 Other chronic pain; I25.10 Atherosclerotic heart disease of native coronary artery without angina pectoris; I25.2 Old myocardial infarction; J45.909 Unspecified asthma, uncomplicated; K21.9 Gastro-esophageal reflux disease without esophagitis; K52.9 Noninfective gastroenteritis and colitis, unspecified; M16.0 Bilateral primary osteoarthritis of hip; M17.0 Bilateral primary osteoarthritis of knee; M47.816 Spondylosis without myelopathy or radiculopathy, lumbar region; M53.3 Sacrococcygeal disorders, not elsewhere classified; M79.3 Panniculitis, unspecified; N18.3 Chronic kidney disease, stage 3 (moderate); N40.0 Benign prostatic hyperplasia without lower urinary tract symptoms; T50.1X5A Adverse effect of loop [high-ceiling] diuretics, initial encounter; W18.30XA Fall on same level, unspecified, initial encounter; Z82.49 Family history of ischemic heart disease and other diseases of the circulatory system; Z90.49 Acquired absence of other specified parts of digestive tract; Z95.5 Presence of coronary angioplasty implant and graft; W18.39XA Other fall on same level, initial encounter; Y93.89 Activity, other specified; Y92.89 Other specified places as the place of occurrence of the external cause; Y99.8 Other external cause status
CPT/HCPCS: 36415; 71045; 76770; 80048; 80053; 81001; 82962; 83605; 83735; 83880; 85025; 87077; 87086; 87186; 96374; 99285; J0696; J1030; J1644; J1815; J3490; 97110-GP; 97116-GP; 97530-GO; 97530-GP; 97535-GO; G0378

== ENCOUNTER 2020-05-16 20:31 | Inpatient (IN) | payer MEDICARE ==
[~2020-05-16] VITALS: Ht 185.4 cm; Wt 184.5 kg
[~2020-05-16 20:31] MED LIST changes: +ALLO300T PO; +AMOX1TAB10 PO; +ASCO500C PO; +FERR-36 PO; +FLUT16SP NS; +LINZESS145 MCG PO; +MULT-138 PO; +POTA20TA4 PO; +POTA99TA3 PO; +TAMS0.4C97 PO
--- NOTE | 2020-05-16 20:42 | PHYS DOC ---
Past Medical History Past Medical History: CAD, Diabetes-Type II, GERD, High Cholesterol, Heart Disease, Hypertension, [place], Other Additional Past Medical Histor: CHRONIC BACK PAIN, constipation Past Surgical History: Cholecystectomy, Lumbar Laminectomy Additional Past Surgical Histo: cardiac stents 12/15, 4 back surgeries, 1 neck surgery Smoking Status: Never Smoker Alcohol Use: None Drug Use: None General Adult EDM: Chief Complaint: CHEST PAIN-CARDIAC NATURE HPI: HPI: Patient is a 69 year old male who presents for evaluation of chest pain and chest pressure. Onset about 1:30 PM today. Patient arrived via EMS for evaluation. Patient is complaining of shortness of air and oxygen sats were in the low 90% via EMS. Patient was placed on oxygen and is not normally oxygen dependent. Patient was recently been to the hospital for evaluation of abdominal pain and urinary tract infection. Patient was just discharged earlier today Review of Systems: Review of Systems: Constitutional: Denies fever or chills. [] Eyes: Denies change in visual acuity. [] HENT: Denies nasal congestion or sore throat. [] Respiratory: Denies cough has shortness of breath. [] Cardiovascular: has chest pain and edema. [] GI: Denies abdominal pain, nausea, vomiting, bloody stools or diarrhea. [] : Denies dysuria. [] Musculoskeletal: Denies back pain or joint pain. [] Integument: Denies rash. [] Neurologic: Denies headache, focal weakness or sensory changes. [] Endocrine: Denies polyuria or polydipsia. [] Lymphatic: Denies swollen glands. [] Psychiatric: Denies depression or anxiety. [] Heart Score: HEART Score for Chest Pain: HEART Score for Chest Pain Response (Comments) Value History Slighlty/Non-Suspicious 0 ECG Normal 0 Age > 65 2 Risk Factors 1 or 2 Risk Factors 1 Troponin < Normal Limit 0 Total 3 Risk Factors: Risk Factors: DM, Current or recent (<one month) smoker, HTN, HLP, family history of CAD, obesity. Risk Scores: Score 0 - 3: 2.5% MACE over next 6 weeks - Discharge Home Score 4 - 6: 20.3% MACE over next 6 weeks - Admit for Clinical Observation Score 7 - 10: 72.7% MACE over next 6 weeks - Early Invasive Strategies Current Medications: Current Medications Medications (Trade) Dose Ordered Sig/Micah Start Time Stop Time Status Last Admin Dose Admin Nitroglycerin (Nitrostat) 0.4 mg 1X PRN 05/16/20 20:45 Allergies: Allergies: Allergies Coded Allergies Type Severity Reaction Last Updated Verified No Known Drug Allergies 06/11/16 No Physical Exam: PE: Constitutional: Well developed, well nourished, moderate distress, non-toxic appearance. [] HENT: Normocephalic, atraumatic, bilateral external ears normal, oropharynx moist, no oral exudates, nose normal. [] Eyes: PERRL, EOMI, conjunctiva normal, no discharge. [] Neck: Normal range of motion, no tenderness, supple, no stridor. [] Cardiovascular:Heart rate regular rhythm, no murmur [] Lungs & Thorax: Bilateral breath sounds clear to auscultation [] Abdomen: Bowel sounds normal, soft, no tenderness, no masses, no pulsatile masses. [] Skin: Warm, dry, no erythema, no rash. [] Back: No tenderness, no CVA tenderness. [] Extremities: No tenderness, no cyanosis, no clubbing, ROM intact, chronic edema. [] Neurologic: Alert and oriented, normal motor function, normal sensory function, no focal deficits noted. [] Psychologic: Affect normal, judgement normal, mood normal. [] Current Patient Data: Labs: Laboratory Tests Test 05/16/20 20:55 05/16/20 21:00 White Blood Count 9.6 x10^3/uL Red Blood Count 4.17 x10^6/uL Hemoglobin 13.3 g/dL Hematocrit 39.3 % Mean Corpuscular Volume 94 fL Mean Corpuscular Hemoglobin 32 pg Mean Corpuscular Hemoglobin Concent 34 g/dL Red Cell Distribution Width 15.1 % Platelet Count 203 x10^3/uL Neutrophils (%) (Auto) 75 % Lymphocytes (%) (Auto) 15 % Monocytes (%) (Auto) 7 % Eosinophils (%) (Auto) 3 % Basophils (%) (Auto) 1 % Neutrophils # (Auto) 7.2 x10^3/uL Lymphocytes # (Auto) 1.4 x10^3/uL Monocytes # (Auto) 0.7 x10^3/uL Eosinophils # (Auto) 0.2 x10^3/uL Basophils # (Auto) 0.1 x10^3/uL Segmented Neutrophils % 77 % Band Neutrophils % 4 % Lymphocytes % 14 % Monocytes % 2 % Eosinophils % 2 % Metamyelocytes % 1 % Platelet Estimate Adequate Sodium Level 138 mmol/L Potassium Level 4.3 mmol/L Chloride Level 103 mmol/L Carbon Dioxide Level 22 mmol/L Anion Gap 13 Blood Urea Nitrogen 33 mg/dL Creatinine 1.6 mg/dL Estimated GFR (Cockcroft-Gault) 43.3 BUN/Creatinine Ratio 21 Glucose Level 209 mg/dL Calcium Level 8.2 mg/dL Total Bilirubin 0.3 mg/dL Aspartate Amino Transf (AST/SGOT) 36 U/L Alanine Aminotransferase (ALT/SGPT) 107 U/L Alkaline Phosphatase 136 U/L Troponin I Quantitative 0.223 ng/mL LS-Flt-X-Type Natriuretic Peptide 269 pg/mL Total Protein 6.6 g/dL Albumin 3.1 g/dL Albumin/Globulin Ratio 0.9 Lipase 124 U/L Bedside Troponin I 0.20 ng/ml Current Medications Medications (Trade) Dose Ordered Sig/Micah Route PRN Reason Start Time Stop Time Status Last Admin Dose Admin Nitroglycerin (Nitrostat) 0.4 mg 1X PRN SL CHEST PAIN 05/16/20 20:45 05/16/20 20:49 Fentanyl Citrate (Fentanyl 2ml Vial) 50 mcg 1X ONCE IVP 05/16/20 22:00 05/16/20 22:01 DC 05/16/20 21:47 Fentanyl Citrate (Fentanyl 2ml Vial) 100 mcg STK-MED ONCE .ROUTE 05/16/20 21:45 05/16/20 21:45 DC EKG: EKG: Normal sinus rhythm, rate 95, otherwise unremarkable EKG, not STEMI [] Radiology/Procedures: Radiology/Procedures: [facility] [address] [place] [address] IMAGING REPORT Signed PATIENT: HARPREET HERR ACCOUNT: [id number] : 1950 LOCATION: ER AGE: 69 SEX: M EXAM STATUS: REG ER ORD. PHYSICIAN: KIRSTY VENEGAS DO REASON: chest pain PROCEDURE: PORTABLE CHEST 1V INDICATION: Reason: chest pain / Spl. Instructions: / History: COMPARISON: May 09, 2020 FINDINGS: Single view of chest obtained. Cardiac silhouette is similar to prior. Similar appearance of the lungs compared to prior with mild interstitial prominence but no definite new focal consolidation. IMPRESSION: * Similar exam compared to prior. Electronically signed by: Yvette Bailey MD (05/16/2020 8:47 PM) [id number] DICTATED and SIGNED BY: YVETTE BAILEY MD DATE: 05/16/202046 [] Course & Med Decision Making: Course & Med Decision Making Pertinent Labs and Imaging studies reviewed. (See chart for details) [] Dragon Disclaimer: Dragon Disclaimer: This electronic medical record was generated, in whole or in part, using a voice recognition dictation system. [address] Maurice Frank, agreed to admit to telemetry bed. Will get Cardiology consult 2207 Dr. Quiroz called, will see pt in consult. Agreed with plan for Plavix and aspirin as well as DVT dose of Lovenox 40 mg subcutaneous. Departure Departure Impression: Primary Impression: Substernal precordial chest pain Additional Impressions: Elevated troponin I level History of heart artery stent Disposition: ADMITTED INPATIENT Admitting Physician: MARCIE Condition: STABLE Referrals: Jessica WHITT MD (PCP) Justicifation of Admission Dx: Justifications for Admission: Justification of Admission Dx: Yes Angina: [facility] Critical Care Time Critical care time was 30 minutes exclusive of procedures. This included talking to patient, interpreting x-ray and lab results, talking to hospitalist and cardiology. Patient will receive supportive care KIRSTY Johnson DO May 16, 2020 20:42
[2020-05-16] MEDS ORDERED: NITROGLYCERIN SUBLINGUAL 0.4 MG BOTTLE OF 25. SL PRN (20:45)
--- NOTE | 2020-05-16 20:50 | RAD ---
INDICATION: Reason: chest pain / Spl. Instructions: / History: COMPARISON: May 09, 2020 FINDINGS: Single view of chest obtained. Cardiac silhouette is similar to prior. Similar appearance of the lungs compared to prior with mild interstitial prominence but no definite new focal consolidation. IMPRESSION: * Similar exam compared to prior. Electronically signed by: Ishmael Hoff MD (05/16/2020 8:47 PM) [id number]
[2020-05-16 21:04] LABS: BASO # 0.1 x10^3/uL (0.0-0.2); BASO % 1 % (0-3); EOS # 0.2 x10^3/uL (0.0-0.7); EOS % 3 % (0-3); HEMATOCRIT 39.3 % (39.0-53.0); HEMOGLOBIN 13.3 g/dL (13.0-17.5); LYMPH # 1.4 x10^3/uL (1.0-4.8); LYMPH % 15 % (24-48); MEAN CORPUSCULAR HEMOGLOBIN 32 pg (25-35); MEAN CORPUSCULAR HGB CONC 34 g/dL (31-37); MEAN CORPUSCULAR VOLUME 94 fL (79-100); MONO # 0.7 x10^3/uL (0.0-1.1); MONO % 7 % (0-9); NEUT # 7.2 x10^3/uL (1.8-7.7); NEUT % 75 % (31-73); PLATELET COUNT 203 x10^3/uL (140-400); RED BLOOD COUNT 4.17 x10^6/uL (4.30-5.70); RED CELL DISTRIBUTION WIDTH 15.1 % (11.5-14.5); WHITE BLOOD COUNT 9.6 x10^3/uL (4.0-11.0)
[2020-05-16 21:23] LABS: CALCIUM 8.2 mg/dL (8.5-10.1); CREATININE 1.6 mg/dL (0.7-1.3); GFR 43.3; POTASSIUM 4.3 mmol/L (3.5-5.1)
[2020-05-16 21:27] LABS: % BANDS 4 % (0-9); % EOS 2 % (0-5); % LYMPHS 14 % (24-48); % METAS 1 % (0-0); % MONOS 2 % (0-10); % SEGS 77 % (35-66); PLT ESTIMATE ADEQUATE (ADEQUATE)
[2020-05-16 21:28] LABS: ALBUMIN 3.1 g/dL (3.4-5.0); ALBUMIN/GLOBULIN RATIO 0.9 (1.0-1.7); TOTAL BILIRUBIN 0.3 mg/dL (0.2-1.0); TOTAL PROTEIN 6.6 g/dL (6.4-8.2)
[2020-05-16] MEDS ORDERED: fentaNYL PF VIAL 100 MCG/2 ML VIAL ONE (21:45)
[2020-05-16] MEDS ORDERED: fentaNYL PF VIAL 100 MCG/2 ML VIAL IVP ONE (22:00)
--- NOTE | 2020-05-16 22:04 | EKG ---
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
[2020-05-16] MEDS ORDERED: ONDANSETRON PF 4 MG/2 ML VIAL. IV PRN (23:15)
[2020-05-16] MEDS ORDERED: ENOXAPARIN 40 MG/0.4 ML SYRINGE. SQ ONE (23:30)
[2020-05-16] MEDS ORDERED: ASPIRIN CHEWABLE 81 MG TABLET. PO ONE (23:30)
[2020-05-16] MEDS ORDERED: CLOPIDOGREL BISULFATE 75 MG TABLET PO ONE (23:30)
[2020-05-17] VITALS (14 sets, daily range): BP systolic 121–144; BP diastolic 49–80
[2020-05-17] MEDS ORDERED: fentaNYL PF VIAL 100 MCG/2 ML VIAL IVP ONE (00:30)
[2020-05-17] MEDS ORDERED: NITROGLYCERIN OINT 1 GM PACKET. TP ONE (00:30)
[2020-05-17] MEDS ORDERED: DEXTROSE 50% 25 GM / 50ML DISP.SYRIN. IV PRN (01:45)
[2020-05-17] MEDS: fentaNYL PF VIAL 100 MCG/2 ML VIAL IVP PRN ×3 (01:55→09:41)
--- NOTE | 2020-05-17 02:28 | NUR ---
Admit from ED via gurney to [facility] room 244. A/O x 4. Pleasant. Transferred from runion to Bariatric Bed with 4 person assist. Orientated to room and call light. Reviewed POC to include Tele monitoring, Troponin lab draws and Pain Management. Verbalized understanding. Resting in bed. Watching TV. Call light at hand.
[2020-05-17] MEDS: INSULIN LISPRO 300 UNITS/3 ML VIAL. SQ SCH ×3 (08:00→17:41)
[2020-05-17] MEDS: METOPROLOL SUCC 24HR ER 50 MG TAB.ER.24H. PO SCH (09:42)
[2020-05-17] MEDS: ASPIRIN ENTERIC COATED 81 MG TABLET.DR. PO SCH (09:42)
[2020-05-17] MEDS: CLOPIDOGREL BISULFATE 75 MG TABLET PO SCH (09:42)
--- NOTE | 2020-05-17 10:24 | NUR ---
SS following for discharge planning. SS reviewed pt chart and discussed with pt RN. Pt is from home with spouse and is currently on room air. Pt has BIPAP machine and walker from home. Pt recently discharged to home with spouse on 05/16/2020 with [facility], ; fax [phone]. PT/OT recommended assisted unit on last admission and pt was accepted at [facility], ; fax [phone], and [facility]. Pt refused COVID19 test on last admission and chose to return to home with spouse and home healthcare. SS met with pt this morning and discussed assisted unit and discharge planning. Pt agreeable to assisted unit at [facility] and agreed to COVID19 test. Pt's RN swabbed pt for COVID19 and test is currently pending. [facility] accepted pt and are able to accept once COVID19 test is resulted. Packet on chart. SS will continue to follow for discharge planning.
--- NOTE | 2020-05-17 10:37 | PDOC ---
CARDIO Progress Notes Date and Time Date of Service 05/17/20 Time of Evaluation 1030 Subjective Subjective: No Palpitations, No Dizziness, Other (had chest pain ambulating to bathroom this am) Vitals Vitals Vital Signs Date Time Temp Pulse Resp B/P (MAP) Pulse Ox O2 Delivery O2 Flow Rate FiO2 05/17/20 09:42 93 144/77 05/17/20 09:41 Room Air 05/17/20 07:15 99.1 18 93 99.1 05/17/20 00:34 3.0 Weight Weight [ ] Input and Output Intake and Output Intake and Output 05/17/20 07:00 Output Total 300 ml Balance -300 ml Output Urine Total 300 ml Laboratory Labs Laboratory Tests Test 05/16/20 20:55 05/16/20 21:00 05/17/20 01:36 05/17/20 05:07 White Blood Count 9.6 x10^3/uL (4.0-11.0) Red Blood Count 4.17 x10^6/uL (4.30-5.70) Hemoglobin 13.3 g/dL (13.0-17.5) Hematocrit 39.3 % (39.0-53.0) Mean Corpuscular Volume 94 fL (79-100) Mean Corpuscular Hemoglobin 32 pg (25-35) Mean Corpuscular Hemoglobin Concent 34 g/dL (31-37) Red Cell Distribution Width 15.1 % (11.5-14.5) Platelet Count 203 x10^3/uL (140-400) Neutrophils (%) (Auto) 75 % (31-73) Lymphocytes (%) (Auto) 15 % (24-48) Monocytes (%) (Auto) 7 % (0-9) Eosinophils (%) (Auto) 3 % (0-3) Basophils (%) (Auto) 1 % (0-3) Neutrophils # (Auto) 7.2 x10^3/uL (1.8-7.7) Lymphocytes # (Auto) 1.4 x10^3/uL (1.0-4.8) Monocytes # (Auto) 0.7 x10^3/uL (0.0-1.1) Eosinophils # (Auto) 0.2 x10^3/uL (0.0-0.7) Basophils # (Auto) 0.1 x10^3/uL (0.0-0.2) Segmented Neutrophils % 77 % (35-66) Band Neutrophils % 4 % (0-9) Lymphocytes % 14 % (24-48) Monocytes % 2 % (0-10) Eosinophils % 2 % (0-5) Metamyelocytes % 1 % (0-0) Platelet Estimate Adequate (ADEQUATE) Sodium Level 138 mmol/L (136-145) Potassium Level 4.3 mmol/L (3.5-5.1) Chloride Level 103 mmol/L (98-107) Carbon Dioxide Level 22 mmol/L (21-32) Anion Gap 13 (6-14) Blood Urea Nitrogen 33 mg/dL (8-26) Creatinine 1.6 mg/dL (0.7-1.3) Estimated GFR (Cockcroft-Gault) 43.3 BUN/Creatinine Ratio 21 (6-20) Glucose Level 209 mg/dL (70-99) Calcium Level 8.2 mg/dL (8.5-10.1) Total Bilirubin 0.3 mg/dL (0.2-1.0) Aspartate Amino Transf (AST/SGOT) 36 U/L (15-37) Alanine Aminotransferase (ALT/SGPT) 107 U/L (16-63) Alkaline Phosphatase 136 U/L (46-116) Troponin I Quantitative 0.223 ng/mL (0.000-0.055) 0.359 ng/mL (0.000-0.055) 0.329 ng/mL (0.000-0.055) JA-Akm-M-Type Natriuretic Peptide 269 pg/mL (0-124) Total Protein 6.6 g/dL (6.4-8.2) Albumin 3.1 g/dL (3.4-5.0) Albumin/Globulin Ratio 0.9 (1.0-1.7) Lipase 124 U/L (73-393) Bedside Troponin I 0.20 ng/ml (<0.08) Test 05/17/20 09:01 Glucose (Fingerstick) 202 mg/dL (70-99) Physical Exam HEENT: Neck Supple W Full Motion Chest: Symmetric LUNGS: Clear to Auscultation Heart: RRR Abdomen: Soft N/T, Other (obese ) Extremities: Other (trace bilateral LE edema) Neurology: alert, oriented, follow commands Assessment Assessment Consult reason: chest pain, elevated trop Referring physician: Dr. Farris HPI: Patient was hospitalized last week secondary to UTI. Was discharge home ye sterday. Returned last night secondary to shortness of breath and chest pain, which prompted this consult. Patient reports he was ambulating into his house and began experiencing heaviness in his central chest. Associated with shortness of breath and diaphoresis. No nausea/vomiting or palpitations. Went inside of took nitro x2 and ASA, which did not significantly improved pain. Decided to come back to the hospital for evaluation of chest pain. Pain improved overnight, but the returned following ambulation to the bathroom. Again had heaviness in his central chest. Associated with shortness of breath and diaphoresis. Pain worse with deep breathing. Echocardiogram <Conclusion> The left ventricular systolic function is normal. The Ejection Fraction is 55-60%. There is normal LV segmental wall motion. Trace mitral regurgitation. Trace tricuspid regurgitation with an estimated PAP of 34 mmHg. There is no evidence of significant pericardial effusion. DATE: 02/20/20 1134 MPI Lexiscan Conclusion 1. No evidence of EKG changes with stress testing. 2. Normal perfusion at stress/rest. Diaphragmatic attenuation artifact noted. 3. Low risk study. 4. EF > 60%. DATE: 08/25/17 1238 Assessment 1. Chest pain, mixed features 2. Mild trop elevation; peak 0.35 3. CAD: PCI/stent x2 in 2012, clinically stable 4. Chronic diastolic CHF; appears compendated 5. Hypertension; controlled 6. Hyperlipiemia; statin 7. Diabetes, II; as pe PCP 8. SONIYA on CKD 9. Morbid obesity. SUSANA with CPAP 10. Weakness, recent mechanical fall, back pain 11. BPH, recent UTI Recommendations Limited echo to asses LV systolic function Resume secondary prevention Given chest pain and significant risk factors, recommend further ischemic kushal luation with left heart cath. R/b/a discussed with patient and and they are agreeable to proceed. Keep NPO Justicifation of Admission Dx: Justifications for Admission: Justification of Admission Dx: Yes Angina: Symp at Rest LUNA MACIAS APRN May 17, 2020 10:37
--- NOTE | 2020-05-17 10:57 | EKG ---
[facility] [address] [place] [address] Test Date: 2020-05-17 Test Time: 10:55:28 Pat Name: HARPREET HERR Department: Room: 244 Gender: M [employer]: CHRISTY : 1950 Requested By: KATH CABALLERO Order Number: [id number] Reading MD: Measurements Intervals [place] Rate: 83 P: 31 ND: 184 QRS: 51 QRSD: 84 T: 19 QT: 378 QTc: 445 Interpretive Statements SINUS RHYTHM NORMAL ECG RI6.02 Compared to ECG 05/16/2020 20:37:08 No significant changes
[2020-05-17] MEDS ORDERED: fentaNYL PF VIAL 100 MCG/2 ML VIAL ONE (12:55)
[2020-05-17] MEDS ORDERED: MIDAZOLAM HCL/PF 2 MG/2 ML VIAL. ONE (12:55)
[2020-05-17] MEDS ORDERED: LIDOCAINE 1% PF 2 ML VIAL. ONE (12:57)
[2020-05-17] MEDS ORDERED: IODIXANOL 320 MG/ML 100 ML VIAL. ONE (12:57)
[2020-05-17] MEDS ORDERED: HEPARIN for ARTERIAL LINE 1,500 ML ONE (12:58)
[2020-05-17] MEDS ORDERED: VERAPAMIL 5 MG/2 ML VIAL. ONE (13:01)
[2020-05-17] MEDS ORDERED: HEPARIN for IV BOLUS 10,000 UNIT/10 ML VIAL. ONE ×2 (13:01→14:28)
[2020-05-17] MEDS ORDERED: NITROGLYCERIN 200 MCG/2 ML SYRINGE FOR CATH/VASC LAB. ONE ×2 (13:01→14:01)
[2020-05-17] MEDS ORDERED: IODIXANOL 320 MG/ML 100 ML VIAL. IART ONE (13:45)
[2020-05-17] MEDS ORDERED: LIDOCAINE 1% PF 2 ML VIAL. INJ ONE (13:45)
[2020-05-17] MEDS ORDERED: HEPARIN for IV BOLUS 10,000 UNIT/10 ML VIAL. IART ONE (13:45)
[2020-05-17] MEDS ORDERED: VERAPAMIL 5 MG/2 ML VIAL. IART ONE (13:45)
[2020-05-17] MEDS ORDERED: NITROGLYCERIN 200 MCG/2 ML SYRINGE FOR CATH/VASC LAB. IART ONE ×3 (13:45→14:30)
[2020-05-17] MEDS ORDERED: HEPARIN for IV BOLUS 10,000 UNIT/10 ML VIAL. IV ONE ×2 (14:00→14:30)
--- NOTE | 2020-05-17 14:28 | CARD ---
MR#: [id number] Date of Study: 05/17/2020 Ordering Physician: LUNA MACIAS, Referring Physician: LUNA MACIAS, Tech: Madai Wall APPROVED REPORT EXAM: LIMITED Two-dimensional and M-mode echocardiogram with Doppler and color Doppler. Other Information Quality : FairHR: 75bpm Technically limited study due to body habitus, Obesity INDICATION Cardiac Disease: CAD Chest Pain Congestive Heart Failure RISK FACTORS Hypertension Hyperlipidemia Diabetes 2D DIMENSIONS RVDd3.7 (2.9-3.5cm)Left Atrium(2D)3.2 (1.6-4.0cm) IVSd1.0 (0.7-1.1cm)LVDd4.6 (3.9-5.9cm) LVOT Diameter2.1 (1.8-2.4cm)PWd1.1 (0.7-1.1cm) LVDs2.7 (2.5-4.0cm)FS (%) 42.7 % SV73.5 mlLVEF(%)73.9 (>50%) LEFT VENTRICLE The left ventricle is normal size. There is normal left ventricular wall thickness. The left ventricu lar systolic function is normal. The Ejection Fraction is 55%. There is normal LV segmental wall sharonda on. RIGHT VENTRICLE The right ventricle is normal size. There is normal right ventricular wall thickness. The right ventr icular systolic function is normal. ATRIA The left atrium is borderline dilated. The right atrium is mildly dilated. The interatrial septum is intact with no evidence for an atrial septal defect or patent foramen ovale as noted on 2-D or Dopple r imaging. AORTIC VALVE The aortic valve is thickened but opens well. Doppler and color-flow analysis was not performed. MITRAL VALVE The mitral valve is normal in structure and function. There is no evidence of mitral valve prolapse. There is no mitral valve stenosis. Doppler and color-flow analysis was not performed. TRICUSPID VALVE The tricuspid valve is normal in structure and function. Doppler and color-flow analysis was not perf ormed. There is no tricuspid valve stenosis. PULMONIC VALVE The pulmonic valve is not visualized. Doppler and color-flow analysis was not performed. GREAT VESSELS The aortic root is normal in size. The IVC was not visualized. PERICARDIAL EFFUSION There is no evidence of significant pericardial effusion. Critical Notification Critical Value: No <Conclusion> Limited echo to assess LV function. The left ventricular systolic function is normal. The Ejection Fraction is 55%. There is normal LV segmental wall motion. There is no evidence of significant pericardial effusion. Signed by : Michael Galvan, Electronically Approved : 05/17/2020 14:27:44
[2020-05-17] MEDS ORDERED: CLOPIDOGREL BISULFATE 75 MG TABLET PO ONE (14:30)
--- NOTE | 2020-05-17 14:43 | CARD ---
MR#: [id number] Date of Study: 05/17/2020 Ordering Physician: TESSA MCLAUGHLIN, Referring Physician: TESSA MCLAUGHLIN, Tech: RT Colette(R) APPROVED REPORT Technologist: RT Colette(R) Nurse: Farzaneh Llanos RN Procedure(s) performed: Sedation Time: 45 minutes Dose: 236 Gycm2 Contrast: 122 mL Visipaque 320 Fluoro Time: 7.7 minutes LHC, Coronary angiography Complex PCI of the RCA HISTORY : The patient is a 69 year-old male with a history of . INDICATION The indication(s) include : non-STEMI . [facility] Clinical Frailty Scale [facility] Clinical Frailty Scale: Moderately Frail Heart Failure Heart Failure: Yes If Yes, Newly Diagnosed: No If Yes, HF Type: Diastolic If Yes, NYHA Class: Class III CASE TECHNIQUE During this case, Fluoroscopy and low osmolar contrast were used for imaging. PROCEDURE NARRATIVE Clinical indication: 69-year-old man who presented to the hospital with stuttering chest pain across the left chest with an elevated troponin in the setting of prior known coronary artery disease. INFORMED CONSENT: After explaining the risks and benefits of the procedure and alternatives, informed consent was obtained. The patient was brought electively to the cardiac catheterization lab. A timeout was performed confi rming the patient's name, date of , procedure, and site of procedure. All necessary personnel w ere wearing the appropriate protective equipment and radiation monitor devices. (See nursing notes for medications administered). ACCESS: The right wrist was sterilely prepped and draped in the usual fashion. The right wrist was infiltrat ed with 1 mL of 2% lidocaine for subcutaneous anesthesia. A 6 Marshallese Terumo glide sheath was inserte d into the right radial artery without difficulty. CORONARY ANGIOGRAPHY: Right and left coronary angiography was performed using a 6Fr TIG 4.0 catheter. Left ventricular en d diastolic pressure was obtained with a JR4 guide catheter and pullback was performed. All catheter exchanges and advancements were performed over a guidewire. CLOSURE: At case completion the right radial sheath was removed and a Terumo radial band was applied with 13 m l of air. COMPLICATIONS: The patient tolerated the procedure well and there were no immediate complications. FINDINGS: HEMODYNAMICS: LVEDP 14 mm Hg No gradient on LV to aortic pullback. AO: 128/78 LEFT VENTRICULOGRAM: Deferred due to known normal ejection fraction and chronic kidney disease. CORONARY ANGIOGRAPHY: LM is a large caliber vessel with normal angiographic appearance. LAD is a large caliber vessel with normal angiographic appearance. D1 is a moderate caliber vessel with mild luminal irregularities. There is a patent proximal stent. LCx is a small caliber non-dominant vessel with mild luminal irregularities. Possible stent in the Lc x. OM1 is a small caliber vessel with an ostial 80% stenosis. Ramus is a small caliber vessel with a proximal 50% stenosis. RCA is a large caliber dominant vessel with distal 80 to 90% stenosis prior to the bifurcation. RPDA is a small caliber vessel with moderate diffuse disease up to 70% RPL is a large-caliber vessel with normal angiographic appearance Interventional technique: This was a complex PCI due to the patient's morbid obesity, difficulty with image intensification and right coronary artery tortuosity. Heparin was used for anticoagulation. The patient was previously on aspirin and Plavix therapy. Through a 6 Marshallese JR4 guide catheter a 0.014 inch pro-water wire wa s used to cross the distal RCA lesion. Next balloon angioplasty was performed with a 3.0 x 15 mm bal loon and the lesion was then stented with a 4.0 x 23 mm Shireen drug-eluting stent. This was dilated at 14 fina. Intracoronary nitroglycerin was administered and there was excellent stent expansion with YING-3 flow in the vessel. No guide or wire related complications were noted. The RPDA was felt to be small in caliber and diffusely diseased without evidence of brisk outflow and therefore further i ntervention was deferred. YING Flow IYNG Flow (Pre-Intervention): YING-3 YING Flow (Post-Intervention): YING-3 Conclusion 1. Normal left-sided filling pressures 2. Successful complex PCI of the RCA with implantation of a Shireen 4.0 x 23 mm drug-eluting stent 3. Patent stents in the LCx and 1st diagonal Recommendations ASA 81mg daily Plavix 75mg daily High dose statin therapy Signed by : Tessa Mclaughlin, Electronically Approved : 05/17/2020 14:43:02
[2020-05-17] MEDS: MORPHINE SULFATE 2 MG/ML VIAL. IV PRN ×2 (15:06→21:32)
[2020-05-17] MEDS ORDERED: MIDAZOLAM HCL/PF 2 MG/2 ML VIAL. IV ONE ×2 (15:15→15:30)
[2020-05-17] MEDS ORDERED: fentaNYL PF VIAL 100 MCG/2 ML VIAL IV ONE (15:15)
[2020-05-17] MEDS ORDERED: LIDOCAINE 1% Multi-Dose 20 ML VIAL. INJ ONE (15:15)
--- NOTE | 2020-05-17 15:35 | PDOC1 ---
History and Physical Date of Admission Date of Admission DATE: 05/17/20 TIME: 15:22 Identification/Chief Complaint Chief Complaint chest pain Source Source: Chart review, Patient History of Present Illness History of Present Illness 69 yo M w/ PMHx CAD s/p stents, DM2, GERD, HLD, HTN, chronic back pain, constipation recently hospitalized last week for falls and UTI. discharged on augmentin and discharged with home PT. had recommended rehab but patient refused and requested to go home instead. when he went home Patient reports he was ambulating into his house and began experiencing heaviness in his central chest. Associated with shortness of breath and diaphoresis. No nausea/vomiting or palpitations. Went inside of took nitro x2 and ASA, which did not significantly improved pain. Decided to come back to the hospital for evaluation of chest pain. Pain improved overnight, but the chest pain returned following ambulation to the bathroom. admitted for further work up. Past Medical History Cardiovascular: CAD, HTN, [place], Hyperlipidemia, Other Pulmonary: Asthma, Other CENTRAL NERVOUS SYSTEM: Periperal neuropathy GI: GERD, Irritable bowel disease Heme/Onc: Anemia NOS Hepatobiliary: No pertinent hx Psych: Addictions Musculoskeletal: low back pain, Osteoarthritis, Other Rheumatologic: No pertinent hx Infectious disease: No pertinent hx Renal/: UTI Endocrine: Diabetes Past Surgical History Past Surgical History: Cholecystectomy, Tonsillectomy, Other Family History Family History: Coronary Artery Disease Social History ALCOHOL: none Drugs: None Current Problem List Problem List Problems Medical Problems: (1) Elevated troponin I level Status: Acute (2) Substernal precordial chest pain Status: Acute Current Medications Current Medications Current Medications Nitroglycerin (Nitrostat) 0.4 mg 1X PRN SL CHEST PAIN Last administered on 05/16/20at 20:49; Start 05/16/20 at 20:45 Fentanyl Citrate (Fentanyl 2ml Vial) 50 mcg 1X ONCE IVP Last administered on 05/16/20at 21:47; Start 05/16/20 at 22:00; Stop 05/16/20 at 22:01; Status DC Fentanyl Citrate (Fentanyl 2ml Vial) 100 mcg STK-MED ONCE .ROUTE ; Start 05/16/20 at 21:45; Stop 05/16/20 at 21:45; Status DC Enoxaparin Sodium (Lovenox 40mg Syringe) 40 mg 1X ONCE SQ Last administered on 05/17/20at 00:16; Start 05/16/20 at 23:30; Stop 05/16/20 at 23:31; Status DC Aspirin (Aspirin Chewable) 324 mg 1X ONCE PO ; Start 05/16/20 at 23:30; Stop 05/16/20 at 23:31; Status DC Clopidogrel Bisulfate (Plavix) 300 mg 1X ONCE PO Last administered on 05/17/20at 00:17; Start 05/16/20 at 23:30; Stop 05/16/20 at 23:31; Status DC Ondansetron HCl (Zofran) 4 mg PRN Q8HRS PRN IV NAUSEA/VOMITING 1ST CHOICE; Start 05/16/20 at 23:15; Stop 05/17/20 at 23:14 Fentanyl Citrate (Fentanyl 2ml Vial) 50 mcg 1X ONCE IVP Last administered on 05/17/20at 00:16; Start 05/17/20 at 00:30; Stop 05/17/20 at 00:31; Status DC Nitroglycerin (Nitro-Bid Oint) 1 inch 1X ONCE TP Last administered on 05/17/20at 01:55; Start 05/17/20 at 00:30; Stop 05/17/20 at 00:31; Status DC Fentanyl Citrate (Fentanyl 2ml Vial) 50 mcg PRN Q2HR PRN IVP SEVERE PAIN 7-10 Last administered on 05/17/20at 09:41; Start 05/17/20 at 01:30; Stop 05/17/20 at 14:59; Status DC Insulin Human Lispro (HumaLOG) 0-7 UNITS TIDWMEALS SQ ; Start 05/17/20 at 08:00 Dextrose (Dextrose 50%-Water Syringe) 12.5 gm PRN Q15MIN PRN IV SEE COMMENTS; Start 05/17/20 at 01:45 Aspirin (Ecotrin) 81 mg DAILY PO Last administered on 05/17/20at 09:42; Start 05/17/20 at 09:00 Atorvastatin Calcium (Lipitor) 20 mg HS PO ; Start 05/17/20 at 21:00 Clopidogrel Bisulfate (Plavix) 75 mg DAILY PO Last administered on 05/17/20at 09:42; Start 05/17/20 at 09:00 Metoprolol Succinate (Toprol Xl) 50 mg DAILY PO Last administered on 05/17/20at 09:42; Start 05/17/20 at 09:00 Midazolam HCl (Versed) 2 mg STK-MED ONCE .ROUTE ; Start 05/17/20 at 12:55; Stop 05/17/20 at 12:55; Status DC Fentanyl Citrate (Fentanyl 2ml Vial) 100 mcg STK-MED ONCE .ROUTE ; Start 05/17/20 at 12:55; Stop 05/17/20 at 12:55; Status DC Lidocaine HCl (Xylocaine-Mpf 1% 2ml Vial) 2 ml STK-MED ONCE .ROUTE ; Start 05/17/20 at 12:57; Stop 05/17/20 at 12:58; Status DC Iodixanol (Visipaque 320) 100 ml STK-MED ONCE .ROUTE ; Start 05/17/20 at 12:57; Stop 05/17/20 at 12:58; Status DC Heparin Sodium/ Sodium Chloride 1,500 ml @ As Directed STK-MED ONCE .ROUTE ; Start 05/17/20 at 12:58; Stop 05/17/20 at 12:58; Status DC Verapamil HCl (Verapamil) 5 mg STK-MED ONCE .ROUTE ; Start 05/17/20 at 13:01; Stop 05/17/20 at 13:01; Status DC Heparin Sodium (Porcine) (Heparin Sodium) 10,000 unit STK-MED ONCE .ROUTE ; Start 05/17/20 at 13:01; Stop 05/17/20 at 13:01; Status DC Nitroglycerin (Nitroglycerin) 200 mcg STK-MED ONCE .ROUTE ; Start 05/17/20 at 13:01; Stop 05/17/20 at 13:01; Status DC Nitroglycerin (Nitroglycerin) 200 mcg 1X ONCE IART Last administered on 05/17/20at 13:45; Start 05/17/20 at 13:45; Stop 05/17/20 at 13:47; Status DC Verapamil HCl (Verapamil) 2.5 mg 1X ONCE IART Last administered on 05/17/20at 13:45; Start 05/17/20 at 13:45; Stop 05/17/20 at 13:47; Status DC Heparin Sodium (Porcine) (Heparin Sodium) 2,500 unit 1X ONCE IART Last administered on 05/17/20at 13:45; Start 05/17/20 at 13:45; Stop 05/17/20 at 13:47; Status DC Heparin Sodium/ Sodium Chloride (HEPARIN for ARTERIAL LINE FLUSH) 1,000 unit 1X ONCE IART Last administered on 05/17/20at 13:45; Start 05/17/20 at 13:45; Stop 05/17/20 at 13:47; Status DC Heparin Sodium/ Sodium Chloride (HEPARIN for ARTERIAL LINE FLUSH) 1,000 unit 1X ONCE IART Last administered on 05/17/20at 13:45; Start 05/17/20 at 13:45; Stop 05/17/20 at 13:47; Status DC Iodixanol (Visipaque 320) 100 ml 1X ONCE IART Last administered on 05/17/20at 13:45; Start 05/17/20 at 13:45; Stop 05/17/20 at 13:47; Status DC Lidocaine HCl (Xylocaine-Mpf 1% 2ml Vial) 2 ml 1X ONCE INJ Last administered on 05/17/20at 13:45; Start 05/17/20 at 13:45; Stop 05/17/20 at 13:47; Status DC Heparin Sodium (Porcine) (Heparin Sodium) 5,000 unit 1X ONCE IV Last administered on 05/17/20at 14:00; Start 05/17/20 at 14:00; Stop 05/17/20 at 14:01; Status DC Nitroglycerin (Nitroglycerin) 200 mcg STK-MED ONCE .ROUTE ; Start 05/17/20 at 14:01; Stop 05/17/20 at 14:01; Status DC Nitroglycerin (Nitroglycerin) 200 mcg 1X ONCE IART Last administered on 05/17/20at 14:15; Start 05/17/20 at 14:15; Stop 05/17/20 at 14:16; Status DC Nitroglycerin (Nitroglycerin) 200 mcg 1X ONCE IART Last administered on 05/17/20at 14:23; Start 05/17/20 at 14:30; Stop 05/17/20 at 14:31; Status DC Heparin Sodium (Porcine) (Heparin Sodium) 10,000 unit STK-MED ONCE .ROUTE ; Start 05/17/20 at 14:28; Stop 05/17/20 at 14:28; Status DC Clopidogrel Bisulfate (Plavix) 300 mg 1X ONCE PO Last administered on 05/17/20at 15:05; Start 05/17/20 at 14:30; Stop 05/17/20 at 14:32; Status DC Heparin Sodium (Porcine) (Heparin Sodium) 3,000 unit 1X ONCE IV Last administered on 05/17/20at 14:30; Start 05/17/20 at 14:30; Stop 05/17/20 at 14:32; Status DC Morphine Sulfate (Morphine Sulfate) 2 mg PRN Q4HRS PRN IV PAIN Last administered on 05/17/20at 15:06; Start 05/17/20 at 15:00 Heparin Sodium/ Sodium Chloride (HEPARIN for ARTERIAL LINE FLUSH) 1,000 unit 1X ONCE IART ; Start 05/17/20 at 15:15; Stop 05/17/20 at 15:16; Status DC Heparin Sodium/ Sodium Chloride (HEPARIN for ARTERIAL LINE FLUSH) 1,000 unit 1X ONCE IART ; Start 05/17/20 at 15:15; Stop 05/17/20 at 15:16; Status DC Midazolam HCl (Versed) 2 mg 1X ONCE IV ; Start 05/17/20 at 15:15; Stop 05/17/20 at 15:16; Status DC Fentanyl Citrate (Fentanyl 2ml Vial) 100 mcg 1X ONCE IV ; Start 05/17/20 at 15:15; Stop 05/17/20 at 15:16; Status DC Lidocaine HCl (Lidocaine 1% 20ml Vial) 20 ml 1X ONCE INJ ; Start 05/17/20 at 15:15; Stop 05/17/20 at 15:16; Status DC Midazolam HCl (Versed) 2 mg 1X ONCE IV ; Start 05/17/20 at 15:30; Stop 05/17/20 at 15:31; Status UNV Active Scripts Active Amox Tr-K Clv 500-125 Mg Tab (Amoxicillin/Potassium Clav) 1 Each Tablet 1 Tab PO BID 10 Days Aspirin Ec (Aspirin) 81 Mg Tablet.dr 1 Tab PO DAILY Reported Flomax (Tamsulosin Hcl) 0.4 Mg Cap.er.24h 1 Cap PO HS Fluticasone Propionate Nasal Forsan (Fluticasone Propionate) 16 Gm Forsan.susp 2 Forsan NS DAILY Klor-Con M20 (Potassium Chloride) 20 Meq Tab.er.prt 20 Meq PO HS Linzess (Linaclotide) 145 Mcg Capsule 145 Mcg PO 3X/WEEK Fexofenadine Hcl 180 Mg Tablet 1 Tab PO DAILY Potassium Gluconate 99 Mg Tablet 99 Mg PO DAILY Vitamin C (Ascorbic Acid) 500 Mg Capsule.er 1,000 Mg PO DAILY One Daily For Men Tablet (Multivits-Minerals/Fa/Lycopene) 1 Each Tablet 1 Tab PO DAILY 30 Days Iron (Ferrous Sulfate) 325 Mg Tablet 65 Mg PO DAILY Allopurinol 300 Mg Tablet 1 Tab PO DAILY Vitamin D2 (Ergocalciferol (Vitamin D2)) 50,000 Unit Capsule 50,000 Unit PO WEEKLY Dose given on the Take on Pantoprazole Sodium (Pantoprazole Sodium) 40 Mg Tablet.dr 1 Tab PO DAILY Gave this morning take tomorrow morning Tizanidine Hcl 4 Mg Tablet 1 Tab PO QHS Gave dose last night Take tonight before bedtime Vascepa (Icosapent Ethyl) 1 Gm Capsule 1 Gm PO Not given on this admission Take as previoulsy instructed Atorvastatin Calcium 20 Mg Tablet 1 Tab PO HS Gave last night Take tonight Clopidogrel (Clopidogrel Bisulfate) 75 Mg Tablet 1 Tab PO DAILY Gave this morning take tomorrow morning Isosorbide Mononitrate Er (Isosorbide Mononitrate) 30 Mg Tab.er.24h 60 Mg PO DAILY Gave this morning take tomorrow morning Repaglinide 1 Mg Tablet 1 Mg PO Not given on this admission Continue as previously instructed Toprol Xl (Metoprolol Succinate) 50 Mg Tab.er.24h 1 Tab PO DAILY Gave this morning take tomorrow morning Allergies Allergies: Coded Allergies: No Known Drug Allergies (Unverified , 06/11/16) ROS Review of System CONSTITUTIONAL: No fever or chills EYES: No recent changes SKIN: No rash or itching CARDIOVASCULAR: No chest pain, syncope, palpitations, or edema RESPIRATORY: No SOB or cough GASTROINTESTINAL: No nausea, vomiting or abdominal pain NEUROLOGICAL: No headaches or weakness ENDOCRINE: No cold or heat intolerance GENITOURINARY: No urgency or frequency of urination MUSCULOSKELETAL: No back pain or joint pain LYMPHATICS: No enlarged lymph nodes PSYCHIATRIC: No anxiety or depression Physical Exam Physical Exam GENERAL: No apparent distress. Alert and oriented. HEENT: Head normocephalic, atraumatic. NECK: Supple LUNGS: Clear to auscultation. HEART: RRR, S1, S2 present, pulses intact ABDOMEN: Soft, positive bowel sounds. EXTREMITIES: No cyanosis or edema. NEUROLOGIC: Normal speech, normal tone PSYCHIATRIC: Normal affect, normal mood. SKIN: No ulceration. Vitals Vitals Vital Signs Date Time Temp Pulse Resp B/P (MAP) Pulse Ox O2 Delivery O2 Flow Rate FiO2 05/17/20 15:06 94 Room Air 05/17/20 14:24 75 24 05/17/20 10:55 97.8 140/78 (98) 97.8 05/17/20 00:34 3.0 Labs Labs Laboratory Tests Test 05/16/20 20:55 05/16/20 21:00 05/17/20 01:36 05/17/20 05:07 White Blood Count 9.6 x10^3/uL (4.0-11.0) Red Blood Count 4.17 x10^6/uL (4.30-5.70) Hemoglobin 13.3 g/dL (13.0-17.5) Hematocrit 39.3 % (39.0-53.0) Mean Corpuscular Volume 94 fL (79-100) Mean Corpuscular Hemoglobin 32 pg (25-35) Mean Corpuscular Hemoglobin Concent 34 g/dL (31-37) Red Cell Distribution Width 15.1 % (11.5-14.5) Platelet Count 203 x10^3/uL (140-400) Neutrophils (%) (Auto) 75 % (31-73) Lymphocytes (%) (Auto) 15 % (24-48) Monocytes (%) (Auto) 7 % (0-9) Eosinophils (%) (Auto) 3 % (0-3) Basophils (%) (Auto) 1 % (0-3) Neutrophils # (Auto) 7.2 x10^3/uL (1.8-7.7) Lymphocytes # (Auto) 1.4 x10^3/uL (1.0-4.8) Monocytes # (Auto) 0.7 x10^3/uL (0.0-1.1) Eosinophils # (Auto) 0.2 x10^3/uL (0.0-0.7) Basophils # (Auto) 0.1 x10^3/uL (0.0-0.2) Segmented Neutrophils % 77 % (35-66) Band Neutrophils % 4 % (0-9) Lymphocytes % 14 % (24-48) Monocytes % 2 % (0-10) Eosinophils % 2 % (0-5) Metamyelocytes % 1 % (0-0) Platelet Estimate Adequate (ADEQUATE) Sodium Level 138 mmol/L (136-145) Potassium Level 4.3 mmol/L (3.5-5.1) Chloride Level 103 mmol/L (98-107) Carbon Dioxide Level 22 mmol/L (21-32) Anion Gap 13 (6-14) Blood Urea Nitrogen 33 mg/dL (8-26) Creatinine 1.6 mg/dL (0.7-1.3) Estimated GFR (Cockcroft-Gault) 43.3 BUN/Creatinine Ratio 21 (6-20) Glucose Level 209 mg/dL (70-99) Calcium Level 8.2 mg/dL (8.5-10.1) Total Bilirubin 0.3 mg/dL (0.2-1.0) Aspartate Amino Transf (AST/SGOT) 36 U/L (15-37) Alanine Aminotransferase (ALT/SGPT) 107 U/L (16-63) Alkaline Phosphatase 136 U/L (46-116) Troponin I Quantitative 0.223 ng/mL (0.000-0.055) 0.359 ng/mL (0.000-0.055) 0.329 ng/mL (0.000-0.055) VM-Qqb-D-Type Natriuretic Peptide 269 pg/mL (0-124) Total Protein 6.6 g/dL (6.4-8.2) Albumin 3.1 g/dL (3.4-5.0) Albumin/Globulin Ratio 0.9 (1.0-1.7) Lipase 124 U/L (73-393) Bedside Troponin I 0.20 ng/ml (<0.08) Test 05/17/20 09:01 05/17/20 09:50 05/17/20 10:45 05/17/20 11:42 Glucose (Fingerstick) 202 mg/dL (70-99) 195 mg/dL (70-99) Coronavirus (COVID-19)(PCR) Negative (NEGATIVE) Troponin I Quantitative 0.212 ng/mL (0.000-0.055) Test 05/17/20 14:08 Activated Clotting Time 179 sec (92-181) Laboratory Tests Test 05/16/20 20:55 05/16/20 21:00 05/17/20 01:36 05/17/20 05:07 White Blood Count 9.6 x10^3/uL (4.0-11.0) Red Blood Count 4.17 x10^6/uL (4.30-5.70) Hemoglobin 13.3 g/dL (13.0-17.5) Hematocrit 39.3 % (39.0-53.0) Mean Corpuscular Volume 94 fL (79-100) Mean Corpuscular Hemoglobin 32 pg (25-35) Mean Corpuscular Hemoglobin Concent 34 g/dL (31-37) Red Cell Distribution Width 15.1 % (11.5-14.5) Platelet Count 203 x10^3/uL (140-400) Neutrophils (%) (Auto) 75 % (31-73) Lymphocytes (%) (Auto) 15 % (24-48) Monocytes (%) (Auto) 7 % (0-9) Eosinophils (%) (Auto) 3 % (0-3) Basophils (%) (Auto) 1 % (0-3) Neutrophils # (Auto) 7.2 x10^3/uL (1.8-7.7) Lymphocytes # (Auto) 1.4 x10^3/uL (1.0-4.8) Monocytes # (Auto) 0.7 x10^3/uL (0.0-1.1) Eosinophils # (Auto) 0.2 x10^3/uL (0.0-0.7) Basophils # (Auto) 0.1 x10^3/uL (0.0-0.2) Segmented Neutrophils % 77 % (35-66) Band Neutrophils % 4 % (0-9) Lymphocytes % 14 % (24-48) Monocytes % 2 % (0-10) Eosinophils % 2 % (0-5) Metamyelocytes % 1 % (0-0) Platelet Estimate Adequate (ADEQUATE) Sodium Level 138 mmol/L (136-145) Potassium Level 4.3 mmol/L (3.5-5.1) Chloride Level 103 mmol/L (98-107) Carbon Dioxide Level 22 mmol/L (21-32) Anion Gap 13 (6-14) Blood Urea Nitrogen 33 mg/dL (8-26) Creatinine 1.6 mg/dL (0.7-1.3) Estimated GFR (Cockcroft-Gault) 43.3 BUN/Creatinine Ratio 21 (6-20) Glucose Level 209 mg/dL (70-99) Calcium Level 8.2 mg/dL (8.5-10.1) Total Bilirubin 0.3 mg/dL (0.2-1.0) Aspartate Amino Transf (AST/SGOT) 36 U/L (15-37) Alanine Aminotransferase (ALT/SGPT) 107 U/L (16-63) Alkaline Phosphatase 136 U/L (46-116) Troponin I Quantitative 0.223 ng/mL (0.000-0.055) 0.359 ng/mL (0.000-0.055) 0.329 ng/mL (0.000-0.055) SE-Eab-Y-Type Natriuretic Peptide 269 pg/mL (0-124) Total Protein 6.6 g/dL (6.4-8.2) Albumin 3.1 g/dL (3.4-5.0) Albumin/Globulin Ratio 0.9 (1.0-1.7) Lipase 124 U/L (73-393) Bedside Troponin I 0.20 ng/ml (<0.08) Test 05/17/20 09:01 05/17/20 09:50 05/17/20 10:45 05/17/20 11:42 Glucose (Fingerstick) 202 mg/dL (70-99) 195 mg/dL (70-99) Coronavirus (COVID-19)(PCR) Negative (NEGATIVE) Troponin I Quantitative 0.212 ng/mL (0.000-0.055) Test 05/17/20 14:08 Activated Clotting Time 179 sec (92-181) VTE Prophylaxis Ordered VTE Prophylaxis Devices: Yes VTE Pharmacological Prophylaxi: Yes Assessment/Plan Assessment/Plan A/P Chest pain with Mild trop elevation; peak 0.35 secondary to CAD s/p Successful complex PCI of the RCA with implantation of a Shireen 4.0 x 23 mm drug-eluting stent; continue asa plavix and high dose statin hx of PCI/stent x2 in 2012 Chronic diastolic CHF CKD, baseline creatine 1.6; hold lasix, metformin and lisinopril Morbid obesity SUSANA with CPAP UTI currently on augmentin Fall - unable to walk, has intractable left lower back pain, h/o SI joint injection last admission . PT and PMR consulted. patient refusing placement wants to go home wit hPT BPH - cont meds Panniculitis - with prior balanitis, will use topical nystatin powder HTN - controlled DM2 - sliding scale dvt ppx full code apprec cards input plan for transfer to [facility] 05/18 if stable today. cardiac cath 05/17: Conclusion 1. Normal left-sided filling pressures 2. t 3. Patent stents in the LCx and 1st diagonal Recommendations ASA 81mg daily Plavix 75mg daily High dose statin therapy Justicifation of Admission Dx: Justifications for Admission: Justification of Admission Dx: Yes Angina: [facility] KATH CABALLERO MD May 17, 2020 15:35
[2020-05-17] MEDS: FLUTICASONE 50MCG/NASAL SPRAY 16GM BOTTLE. NS SCH (16:00)
[2020-05-17] MEDS: ALLOPURINOL 300 MG TABLET. PO SCH (17:30)
[2020-05-17] MEDS: MULTIVITAMIN with MINERAL TABLET. PO SCH (17:30)
[2020-05-17] MEDS: ASCORBIC ACID 500 MG TABLET PO SCH (17:30)
[2020-05-17] MEDS: FERROUS SULFATE 325 MG TABLET. PO SCH (17:30)
[2020-05-17] MEDS: LUBIPROSTONE 24 MCG CAPSULE PO SCH (17:30)
[2020-05-17] MEDS: PANTOPRAZOLE 40 MG TABLET.DR. PO SCH (17:30)
[2020-05-17] MEDS: ISOSORBIDE MONONITRATE ER 30 MG TAB.ER.24H PO SCH (17:35)
[2020-05-17] MEDS: AMOXICILLIN/K CLAV 500/125MG TABLET. PO SCH (21:31)
[2020-05-17] MEDS: tiZANidine 4 MG TABLET. PO SCH (21:32)
[2020-05-17] MEDS: ATORVASTATIN CALCIUM 20 MG TABLET PO SCH (21:32)
[2020-05-17] MEDS: TAMSULOSIN 0.4 MG CAP.ER.24H. PO SCH (21:32)
[2020-05-17] MEDS: HEPARIN for SUB-Q USE 5,000 UNIT/ML VIAL. SQ SCH (21:38)
[2020-05-18] MEDS: MORPHINE SULFATE 2 MG/ML VIAL. IV PRN ×2 (02:28→06:51)
[2020-05-18 02:34] VITALS: BP 125/69
[2020-05-18 05:14] LABS: BASO # 0.1 x10^3/uL (0.0-0.2); BASO % 1 % (0-3); EOS # 0.2 x10^3/uL (0.0-0.7); EOS % 2 % (0-3); HEMATOCRIT 38.7 % (39.0-53.0); HEMOGLOBIN 12.8 g/dL (13.0-17.5); LYMPH # 1.7 x10^3/uL (1.0-4.8); LYMPH % 21 % (24-48); MEAN CORPUSCULAR HEMOGLOBIN 32 pg (25-35); MEAN CORPUSCULAR HGB CONC 33 g/dL (31-37); MEAN CORPUSCULAR VOLUME 96 fL (79-100); MONO # 0.7 x10^3/uL (0.0-1.1); MONO % 9 % (0-9); NEUT # 5.6 x10^3/uL (1.8-7.7); NEUT % 67 % (31-73); PLATELET COUNT 207 x10^3/uL (140-400); RED BLOOD COUNT 4.05 x10^6/uL (4.30-5.70); RED CELL DISTRIBUTION WIDTH 15.4 % (11.5-14.5); WHITE BLOOD COUNT 8.3 x10^3/uL (4.0-11.0)
[2020-05-18 05:37] LABS: CALCIUM 8.6 mg/dL (8.5-10.1); CREATININE 1.5 mg/dL (0.7-1.3); GFR 46.7; POTASSIUM 4.4 mmol/L (3.5-5.1)
[2020-05-18 05:56] LABS: CHOLESTEROL/HDL RATIO 3.1
[2020-05-18] MEDS: HEPARIN for SUB-Q USE 5,000 UNIT/ML VIAL. SQ SCH ×3 (06:58→21:00)
[2020-05-18 07:00] VITALS: BP 137/64
[2020-05-18] MEDS: LUBIPROSTONE 24 MCG CAPSULE PO SCH ×2 (08:30→17:50)
[2020-05-18] MEDS: CLOPIDOGREL BISULFATE 75 MG TABLET PO SCH (08:30)
[2020-05-18] MEDS: FERROUS SULFATE 325 MG TABLET. PO SCH (08:30)
[2020-05-18] MEDS: ALLOPURINOL 300 MG TABLET. PO SCH (08:30)
[2020-05-18] MEDS: AMOXICILLIN/K CLAV 500/125MG TABLET. PO SCH ×2 (08:31→20:55)
[2020-05-18] MEDS: METOPROLOL SUCC 24HR ER 50 MG TAB.ER.24H. PO SCH (08:31)
[2020-05-18] MEDS: ASPIRIN ENTERIC COATED 81 MG TABLET.DR. PO SCH (08:31)
[2020-05-18] MEDS: ASCORBIC ACID 500 MG TABLET PO SCH (08:31)
[2020-05-18] MEDS: MULTIVITAMIN with MINERAL TABLET. PO SCH (08:31)
[2020-05-18] MEDS: PANTOPRAZOLE 40 MG TABLET.DR. PO SCH (08:32)
[2020-05-18] MEDS: ISOSORBIDE MONONITRATE ER 30 MG TAB.ER.24H PO SCH (08:32)
[2020-05-18] MEDS: INSULIN LISPRO 300 UNITS/3 ML VIAL. SQ SCH ×3 (08:41→17:54)
[2020-05-18] MEDS: FLUTICASONE 50MCG/NASAL SPRAY 16GM BOTTLE. NS SCH (08:42)
[2020-05-18] MEDS ORDERED: HYDR-2761 PO (09:09)
--- NOTE | 2020-05-18 09:10 | SNU/HH DC ---
DISCHARGE ORDERS DISCHARGE INFORMATION: DISCHARGE DATE: May 18, 2020 FINAL DIAGNOSIS Problems Medical Problems: (1) Elevated troponin I level Status: Acute (2) Substernal precordial chest pain Status: Acute CONDITION ON DISCHARGE: Stable CODE STATUS: Code Status: Full LONG TERM: SNF STAY <30 DAYS: Yes POST DISCHARGE ORDERS: ACTIVITY ORDERS: Activity as tolerated WEIGHT BEARING STATUS: As tolerated DIET AFTER DISCHARGE: ADA WOUND/INCISION CARE: Do not change dressing CHECKS AFTER DISCHARGE: CHECKS AFTER DISCHARGE: Check blood press - daily, Check blood sugar, ac/hs TREATMENT/EQUIPMENT ORDERS: ADAPTIVE EQUIPMENT NEEDED: None Physical Therapy For: Evalulation/Treatment Occupational Therapy For: Evaluation/Treatment DISCHARGE MEDICATIONS: Home Meds Active Scripts Hydrocodone Bit/Acetaminophen (HYDROCODONE-APAP 5-325 ) 1 Tab Tablet, 1 TAB PO PRN Q6HRS PRN for PAIN for 5 Days, #20 TAB 0 Refills Prov:KATH CABALLERO MD 05/18/20 Amoxicillin/Potassium Clav (AMOX TR-K CLV 500-125 MG TAB) 1 Each Tablet, 1 TAB PO BID for uti for 10 Days, #20 TAB Prov:KATH CABALLERO MD 05/15/20 Aspirin (ASPIRIN EC) 81 Mg Tablet.dr, 1 TAB PO DAILY for CAD, #30 TAB 3 Refills Prov:YAYO RAJAN APRN 02/21/20 Reported Medications Tamsulosin Hcl (FLOMAX) 0.4 Mg Cap.er.24h, 1 CAP PO HS for BPH, #30 CAP 11 Refills 05/09/20 Fluticasone Propionate (FLUTICASONE PROPIONATE NASAL SPRAY) 16 Gm [place].susp, 2 SPRAY NS DAILY for allergies, #1 INHALER 11 Refills 05/09/20 Linaclotide (LINZESS) 145 Mcg Capsule, 145 MCG PO 3X/WEEK for IRRITABLE BOWEL, CAP 05/09/20 Fexofenadine Hcl (FEXOFENADINE HCL) 180 Mg Tablet, 1 TAB PO DAILY for allergies, #30 TAB 5 Refills 05/09/20 Ascorbic Acid (VITAMIN C) 500 Mg Capsule.er, 1000 MG PO DAILY for supplement, CAP.SR 05/09/20 Multivits-Minerals/Fa/Lycopene (ONE DAILY FOR MEN TABLET) 1 Each Tablet, 1 TAB PO DAILY for supplement for 30 Days, #30 TAB 0 Refills 7/8/20 Ferrous Sulfate (IRON) 325 Mg Tablet, 65 MG PO DAILY for anemia, TAB 05/09/20 Allopurinol (ALLOPURINOL) 300 Mg Tablet, 1 TAB PO DAILY for Hyperunicemia, #30 TAB 5 Refills 05/09/20 Ergocalciferol (Vitamin D2) (VITAMIN D2) 50,000 Unit Capsule, 61546 UNIT PO WEEKLY Dose given on the Take on 05/29/16 Pantoprazole Sodium (PANTOPRAZOLE SODIUM ) 40 Mg Tablet.dr, 1 TAB PO DAILY, #30 TAB 3 Refills Gave this morning take tomorrow morning 04/30/16 Tizanidine Hcl (TIZANIDINE HCL) 4 Mg Tablet, 1 TAB PO QHS, #30 TAB Gave dose last night Take tonight before bedtime 05/31/15 Icosapent Ethyl (VASCEPA) 1 Gm Capsule, 1 GM PO Not given on this admission Take as previoulsy instructed 09/23/14 Atorvastatin Calcium (ATORVASTATIN CALCIUM) 20 Mg Tablet, 1 TAB PO HS for HLD, #30 TAB 5 Refills Gave last night Take tonight 09/23/14 Clopidogrel Bisulfate (CLOPIDOGREL) 75 Mg Tablet, 1 TAB PO DAILY, #90 TAB 1 Refill Gave this morning take tomorrow morning 09/23/14 Isosorbide Mononitrate (ISOSORBIDE MONONITRATE ER) 30 Mg Tab.er.24h, 60 MG PO DAILY, #30 TAB 5 Refills Gave this morning take tomorrow morning 09/23/14 Repaglinide (REPAGLINIDE) 1 Mg Tablet, 1 MG PO Not given on this admission Continue as previously instructed 09/23/14 Metoprolol Succinate (TOPROL XL) 50 Mg Tab.er.24h, 1 TAB PO DAILY, #30 TAB 5 Refills Gave this morning take tomorrow morning 09/23/14 Discontinued Reported Medications Potassium Chloride (KLOR-CON M20) 20 Meq Tab.er.prt, 20 MEQ PO HS for low potassium, TAB.SR 05/09/20 Potassium Gluconate (POTASSIUM GLUCONATE) 99 Mg Tablet, 99 MG PO DAILY for low potassium, TAB 05/09/20 Metformin Hcl (METFORMIN HCL) 1,000 Mg Tablet, 1000 MG PO BIDWMEALS for ANTI- DIABETIC, TAB 0 Refills 05/09/20 Lisinopril (LISINOPRIL) 40 Mg Tablet, 1 TAB PO BID for HTN, #30 TAB 5 Refills 05/09/20 KATH CABALLERO MD May 18, 2020 09:10
--- NOTE | 2020-05-18 09:37 | PDOC3 ---
Discharge Summary Visit Information Date of Admission: May 17, 2020 Date of Discharge: May 18, 2020 Final Diagnosis Problems Medical Problems: (1) Elevated troponin I level Status: Acute (2) Substernal precordial chest pain Status: Acute Brief Hospital Course Allergies Allergies Coded Allergies Type Severity Reaction Last Updated Verified No Known Drug Allergies 06/11/16 No Vital Signs GENERAL: No apparent distress. Alert and oriented. HEENT: Head normocephalic, atraumatic. NECK: Supple LUNGS: Clear to auscultation. HEART: RRR, S1, S2 present, pulses intact ABDOMEN: Soft, positive bowel sounds. EXTREMITIES: No cyanosis or edema. NEUROLOGIC: Normal speech, normal tone PSYCHIATRIC: Normal affect, normal mood. SKIN: No ulceration. Vital Signs Date Time Temp Pulse Resp B/P (MAP) Pulse Ox O2 Delivery O2 Flow Rate FiO2 05/18/20 08:32 75 05/18/20 07:00 98.8 16 137/64 (88) 93 Room Air 98.8 05/17/20 21:32 3.0 Lab Results Laboratory Tests Test 05/16/20 20:55 05/16/20 21:00 05/17/20 01:36 05/17/20 05:07 White Blood Count 9.6 x10^3/uL (4.0-11.0) Red Blood Count 4.17 x10^6/uL (4.30-5.70) Hemoglobin 13.3 g/dL (13.0-17.5) Hematocrit 39.3 % (39.0-53.0) Mean Corpuscular Volume 94 fL (79-100) Mean Corpuscular Hemoglobin 32 pg (25-35) Mean Corpuscular Hemoglobin Concent 34 g/dL (31-37) Red Cell Distribution Width 15.1 % (11.5-14.5) Platelet Count 203 x10^3/uL (140-400) Neutrophils (%) (Auto) 75 % (31-73) Lymphocytes (%) (Auto) 15 % (24-48) Monocytes (%) (Auto) 7 % (0-9) Eosinophils (%) (Auto) 3 % (0-3) Basophils (%) (Auto) 1 % (0-3) Neutrophils # (Auto) 7.2 x10^3/uL (1.8-7.7) Lymphocytes # (Auto) 1.4 x10^3/uL (1.0-4.8) Monocytes # (Auto) 0.7 x10^3/uL (0.0-1.1) Eosinophils # (Auto) 0.2 x10^3/uL (0.0-0.7) Basophils # (Auto) 0.1 x10^3/uL (0.0-0.2) Segmented Neutrophils % 77 % (35-66) Band Neutrophils % 4 % (0-9) Lymphocytes % 14 % (24-48) Monocytes % 2 % (0-10) Eosinophils % 2 % (0-5) Metamyelocytes % 1 % (0-0) Platelet Estimate Adequate (ADEQUATE) Sodium Level 138 mmol/L (136-145) Potassium Level 4.3 mmol/L (3.5-5.1) Chloride Level 103 mmol/L (98-107) Carbon Dioxide Level 22 mmol/L (21-32) Anion Gap 13 (6-14) Blood Urea Nitrogen 33 mg/dL (8-26) Creatinine 1.6 mg/dL (0.7-1.3) Estimated GFR (Cockcroft-Gault) 43.3 BUN/Creatinine Ratio 21 (6-20) Glucose Level 209 mg/dL (70-99) Calcium Level 8.2 mg/dL (8.5-10.1) Total Bilirubin 0.3 mg/dL (0.2-1.0) Aspartate Amino Transf (AST/SGOT) 36 U/L (15-37) Alanine Aminotransferase (ALT/SGPT) 107 U/L (16-63) Alkaline Phosphatase 136 U/L (46-116) Troponin I Quantitative 0.223 ng/mL (0.000-0.055) 0.359 ng/mL (0.000-0.055) 0.329 ng/mL (0.000-0.055) WN-Dnv-Q-Type Natriuretic Peptide 269 pg/mL (0-124) Total Protein 6.6 g/dL (6.4-8.2) Albumin 3.1 g/dL (3.4-5.0) Albumin/Globulin Ratio 0.9 (1.0-1.7) Lipase 124 U/L (73-393) Bedside Troponin I 0.20 ng/ml (<0.08) Test 05/17/20 09:01 05/17/20 09:50 05/17/20 10:45 05/17/20 11:42 Glucose (Fingerstick) 202 mg/dL (70-99) 195 mg/dL (70-99) Coronavirus (COVID-19)(PCR) Negative (NEGATIVE) Troponin I Quantitative 0.212 ng/mL (0.000-0.055) Test 05/17/20 14:08 05/17/20 16:42 05/17/20 20:27 05/18/20 04:43 Activated Clotting Time 179 sec (92-181) Glucose (Fingerstick) 151 mg/dL (70-99) 175 mg/dL (70-99) Sodium Level 139 mmol/L (136-145) Potassium Level 4.4 mmol/L (3.5-5.1) Chloride Level 106 mmol/L (98-107) Carbon Dioxide Level 21 mmol/L (21-32) Anion Gap 12 (6-14) Blood Urea Nitrogen 27 mg/dL (8-26) Creatinine 1.5 mg/dL (0.7-1.3) Estimated GFR (Cockcroft-Gault) 46.7 Glucose Level 196 mg/dL (70-99) Calcium Level 8.6 mg/dL (8.5-10.1) Triglycerides Level 140 mg/dL (0-150) Cholesterol Level 113 mg/dL (0-200) LDL Cholesterol, Calculated 48 mg/dL (0-100) VLDL Cholesterol, Calculated 28 mg/dL (0-40) Non-HDL Cholesterol Calculated 76 mg/dL (0-129) HDL Cholesterol 37 mg/dL (40-60) Cholesterol/HDL Ratio 3.1 Test 05/18/20 04:45 05/18/20 07:12 White Blood Count 8.3 x10^3/uL (4.0-11.0) Red Blood Count 4.05 x10^6/uL (4.30-5.70) Hemoglobin 12.8 g/dL (13.0-17.5) Hematocrit 38.7 % (39.0-53.0) Mean Corpuscular Volume 96 fL (79-100) Mean Corpuscular Hemoglobin 32 pg (25-35) Mean Corpuscular Hemoglobin Concent 33 g/dL (31-37) Red Cell Distribution Width 15.4 % (11.5-14.5) Platelet Count 207 x10^3/uL (140-400) Neutrophils (%) (Auto) 67 % (31-73) Lymphocytes (%) (Auto) 21 % (24-48) Monocytes (%) (Auto) 9 % (0-9) Eosinophils (%) (Auto) 2 % (0-3) Basophils (%) (Auto) 1 % (0-3) Neutrophils # (Auto) 5.6 x10^3/uL (1.8-7.7) Lymphocytes # (Auto) 1.7 x10^3/uL (1.0-4.8) Monocytes # (Auto) 0.7 x10^3/uL (0.0-1.1) Eosinophils # (Auto) 0.2 x10^3/uL (0.0-0.7) Basophils # (Auto) 0.1 x10^3/uL (0.0-0.2) Glucose (Fingerstick) 185 mg/dL (70-99) Laboratory Tests Test 05/17/20 09:50 05/17/20 10:45 05/17/20 11:42 05/17/20 14:08 Coronavirus (COVID-19)(PCR) Negative (NEGATIVE) Troponin I Quantitative 0.212 ng/mL (0.000-0.055) Glucose (Fingerstick) 195 mg/dL (70-99) Activated Clotting Time 179 sec (92-181) Test 05/17/20 16:42 05/17/20 20:27 05/18/20 04:43 05/18/20 04:45 Glucose (Fingerstick) 151 mg/dL (70-99) 175 mg/dL (70-99) Sodium Level 139 mmol/L (136-145) Potassium Level 4.4 mmol/L (3.5-5.1) Chloride Level 106 mmol/L (98-107) Carbon Dioxide Level 21 mmol/L (21-32) Anion Gap 12 (6-14) Blood Urea Nitrogen 27 mg/dL (8-26) Creatinine 1.5 mg/dL (0.7-1.3) Estimated GFR (Cockcroft-Gault) 46.7 Glucose Level 196 mg/dL (70-99) Calcium Level 8.6 mg/dL (8.5-10.1) Triglycerides Level 140 mg/dL (0-150) Cholesterol Level 113 mg/dL (0-200) LDL Cholesterol, Calculated 48 mg/dL (0-100) VLDL Cholesterol, Calculated 28 mg/dL (0-40) Non-HDL Cholesterol Calculated 76 mg/dL (0-129) HDL Cholesterol 37 mg/dL (40-60) Cholesterol/HDL Ratio 3.1 White Blood Count 8.3 x10^3/uL (4.0-11.0) Red Blood Count 4.05 x10^6/uL (4.30-5.70) Hemoglobin 12.8 g/dL (13.0-17.5) Hematocrit 38.7 % (39.0-53.0) Mean Corpuscular Volume 96 fL (79-100) Mean Corpuscular Hemoglobin 32 pg (25-35) Mean Corpuscular Hemoglobin Concent 33 g/dL (31-37) Red Cell Distribution Width 15.4 % (11.5-14.5) Platelet Count 207 x10^3/uL (140-400) Neutrophils (%) (Auto) 67 % (31-73) Lymphocytes (%) (Auto) 21 % (24-48) Monocytes (%) (Auto) 9 % (0-9) Eosinophils (%) (Auto) 2 % (0-3) Basophils (%) (Auto) 1 % (0-3) Neutrophils # (Auto) 5.6 x10^3/uL (1.8-7.7) Lymphocytes # (Auto) 1.7 x10^3/uL (1.0-4.8) Monocytes # (Auto) 0.7 x10^3/uL (0.0-1.1) Eosinophils # (Auto) 0.2 x10^3/uL (0.0-0.7) Basophils # (Auto) 0.1 x10^3/uL (0.0-0.2) Test 05/18/20 07:12 Glucose (Fingerstick) 185 mg/dL (70-99) Brief Hospital Course 69 yo M w/ PMHx CAD s/p stents, DM2, GERD, HLD, HTN, chronic back pain, constipation recently hospitalized last week for falls and UTI. discharged on augmentin and discharged with home PT. had recommended rehab but patient refused and requested to go home instead. when he went home Patient reports he was ambulating into his house and began experiencing heaviness in his central chest. Associated with shortness of breath and diaphoresis. No nausea/vomiting or palpitations. Went inside of took nitro x2 and ASA, which did not significantly improved pain. Decided to come back to the hospital for evaluation of chest pain. Pain improved overnight, but the chest pain returned following ambulation to the bathroom. admitted for further work up. A/P Chest pain with Mild trop elevation; peak 0.35 secondary to CAD s/p Successful complex PCI of the RCA with implantation of a Shireen 4.0 x 23 mm drug-eluting stent; continue asa plavix and high dose statin hx of PCI/stent x2 in 2012 Chronic diastolic CHF CKD, baseline creatine 1.6; hold lasix, metformin and lisinopril Morbid obesity SUSANA with CPAP UTI currently on augmentin Fall - unable to walk, has intractable left lower back pain, h/o SI joint injection last admission . PT and PMR consulted. patient refusing placement wants to go home wit hPT BPH - cont meds Panniculitis - with prior balanitis, will use topical nystatin powder HTN - controlled DM2 - sliding scale patient will transfer to [facility] today Discharge Information Condition at Discharge: Improved Disposition/Orders: D/C to Another Facility Scheduled Allopurinol (Allopurinol) 300 Mg Tablet, 1 TAB PO DAILY for Hyperunicemia, #30 Ref 5 (Reported) Entered as Reported by: MASHA BARAHONA on 05/09/202337 Last Action: Continued on 05/17/201532 by KATH CABALLERO MD Amoxicillin/Potassium Clav (Amox Tr-K Clv 500-125 Mg Tab) 1 Each Tablet, 1 TAB PO BID for uti for 10 Days, #20 Prescribed by: KATH CABALLERO MD on 05/15/20 1323 Last Action: Continued on 05/17/201532 by KATH CABALLERO MD Ascorbic Acid (Vitamin C) 500 Mg Capsule.er, 1,000 MG PO DAILY for supplement, (Reported) Entered as Reported by: MASHA BARAHONA on 05/09/202337 Last Action: Converted on 05/17/201532 by KATH CABALLERO MD Aspirin (Aspirin Ec) 81 Mg Tablet.dr, 1 TAB PO DAILY for CAD, #30 Ref 3 Prescribed by: YAYO RAJAN on 02/21/20 1259 Last Action: Continued on 05/17/20226 by NADINE CALVILLO Atorvastatin Calcium (Atorvastatin Calcium) 20 Mg Tablet, 1 TAB PO HS for HLD, #30 Ref 5 (Reported) Gave last night Take tonight Entered as Reported by: STACY CARTAGENA on 09/23/14210 Last Action: Continued on 05/17/20226 by NADINE CALVILLO Clopidogrel Bisulfate (Clopidogrel) 75 Mg Tablet, 1 TAB PO DAILY, #90 Ref 1 (Reported) Gave this morning take tomorrow morning Entered as Reported by: STACY CARTAGENA on 09/23/14210 Last Action: Continued on 05/17/20226 by NADINE CALVILLO Ergocalciferol (Vitamin D2) (Vitamin D2) 50,000 Unit Capsule, 50,000 UNIT PO WEEKLY, (Reported) Dose given on the Take on Entered as Reported by: NARCISA TOURE on 05/29/1619 Last Action: Continued on 05/17/201532 by KATH CABALLERO MD Ferrous Sulfate (Iron) 325 Mg Tablet, 65 MG PO DAILY for anemia, (Reported) Entered as Reported by: MASHA BARAHONA on 05/09/202337 Last Action: Continued on 05/17/201532 by KATH CABALLERO MD Fexofenadine Hcl (Fexofenadine Hcl) 180 Mg Tablet, 1 TAB PO DAILY for allergies, #30 Ref 5 (Reported) Entered as Reported by: MASHA BARAHONA on 05/09/202337 Last Action: Reviewed on 05/17/20138 by NADINE CALVILLO Fluticasone Propionate (Fluticasone Propionate Nasal [place]) 16 Gm [place].susp, 2 SPRAY NS DAILY for allergies, #1 Ref 11 (Reported) Entered as Reported by: MASHA BARAHONA on 05/09/202337 Last Action: Continued on 05/17/201532 by KATH CABALLERO MD Isosorbide Mononitrate (Isosorbide Mononitrate Er) 30 Mg Tab.er.24h, 60 MG PO DAILY, #30 Ref 5 (Reported) Gave this morning take tomorrow morning Entered as Reported by: STACY CARTAGENA on 09/23/14210 Last Action: Continued on 05/17/201532 by KATH CABALLERO MD Linaclotide (Linzess) 145 Mcg Capsule, 145 MCG PO 3X/WEEK for IRRITABLE BOWEL, (Reported) Entered as Reported by: MASHA BARAHONA on 05/09/202337 Last Action: Converted on 05/17/201532 by KATH CABALLERO MD Metoprolol Succinate (Toprol Xl) 50 Mg Tab.er.24h, 1 TAB PO DAILY, #30 Ref 5 (Reported) Gave this morning take tomorrow morning Entered as Reported by: STACY CARTAGENA on 09/23/14210 Last Action: Converted on 05/17/20226 by NADINE CALVILLO Multivits-Minerals/Fa/Lycopene (One Daily For Men Tablet) 1 Each Tablet, 1 TAB PO DAILY for supplement for 30 Days, #30 Ref 0 (Reported) Entered as Reported by: MASHA BARAHONA on 05/09/202337 Last Action: Converted on 05/17/201532 by KATH CABALLERO MD Pantoprazole Sodium (Pantoprazole Sodium ) 40 Mg Tablet.dr, 1 TAB PO DAILY, #30 Ref 3 (Reported) Gave this morning take tomorrow morning Entered as Reported by: NABILA WHYTE on 04/30/162157 Last Action: Continued on 05/17/201532 by KATH CABALLERO MD Tamsulosin Hcl (Flomax) 0.4 Mg Cap.er.24h, 1 CAP PO HS for BPH, #30 Ref 11 (Reported) Entered as Reported by: MASHA BARAHONA on 05/09/202337 Last Action: Continued on 05/17/201532 by KATH CABALLERO MD Tizanidine Hcl (Tizanidine Hcl) 4 Mg Tablet, 1 TAB PO QHS, #30 (Reported) Gave dose last night Take tonight before bedtime Entered as Reported by: SNEHA JENKINS on 05/31/15 0844 Last Action: Continued on 05/17/201532 by KATH CABALLERO MD Scheduled PRN Hydrocodone Bit/Acetaminophen (Hydrocodone-Apap 5-325 ) 1 Tab Tablet, 1 TAB PO PRN Q6HRS PRN for PAIN for 5 Days, #20 Ref 0 Prescribed by: KATH CABALLERO MD on 05/18/20 0909 Miscellaneous Medications Icosapent Ethyl (Vascepa) 1 Gm Capsule, 1 GM PO, (Reported) Not given on this admission Take as previoulsy instructed Entered as Reported by: STACY CARTAGENA on 09/23/14210 Last Action: HELD on 05/17/201532 by KATH CABALLERO MD Repaglinide (Repaglinide) 1 Mg Tablet, 1 MG PO, (Reported) Not given on this admission Continue as previously instructed Entered as Reported by: STACY CARTAGENA on 09/23/14210 Last Action: HELD on 05/17/201532 by KATH CABALLERO MD Discontinued Medications Lisinopril (Lisinopril) 40 Mg Tablet, 1 TAB PO BID for HTN, #30 Ref 5 (Reported) Entered as Reported by: MASHA BARAHONA on 05/09/202337 Metformin Hcl (Metformin Hcl) 1,000 Mg Tablet, 1,000 MG PO BIDWMEALS for ANTI- DIABETIC, Ref 0 (Reported) Entered as Reported by: MASHA BARAHONA on 05/09/202337 Potassium Chloride (Klor-Con M20) 20 Meq Tab.er.prt, 20 MEQ PO HS for low potassium, (Reported) Entered as Reported by: MASHA BARAHONA on 05/09/202337 Last Action: HELD on 05/17/201532 by KATH CABALLERO MD Potassium Gluconate (Potassium Gluconate) 99 Mg Tablet, 99 MG PO DAILY for low potassium, (Reported) Entered as Reported by: MASHA BARAHONA on 05/09/202337 Last Action: HELD on 05/17/201532 by KATH CABALLERO MD Justicifation of Admission Dx: Justifications for Admission: Justification of Admission Dx: Yes Angina: Symp at Rest KATH CABALLERO MD May 18, 2020 09:37
[2020-05-18] MEDS ORDERED: BUPIVACAINE MPF 0.25% 10 ML VIAL. IJ ONE (10:00)
[2020-05-18] MEDS ORDERED: methylPREDNISolone ACETATE 40 MG/ML VIAL. INJ ONE (10:00)
--- NOTE | 2020-05-18 10:39 | PDOC ---
PROGRESS NOTES Chief Complaint Chief Complaint 69 yo M w/ PMHx CAD s/p stents, DM2, GERD, HLD, HTN, chronic back pain, constipation recently hospitalized last week for falls and UTI. discharged on augmentin and discharged with home PT. had recommended rehab but patient refused and requested to go home instead. when he went home Patient reports he was ambulating into his house and began experiencing heaviness in his central chest. Associated with shortness of breath and diaphoresis. No nausea/vomiting or palpitations. Went inside of took nitro x2 and ASA, which did not significantly improved pain. Decided to come back to the hospital for evaluation of chest pain. Pain improved overnight, but the chest pain returned following ambulation to the bathroom. admitted for further work up. A/P Chest pain with Mild trop elevation; peak 0.35 secondary to CAD s/p Successful complex PCI of the RCA with implantation of a Shireen 4.0 x 23 mm drug-eluting stent; continue asa plavix and high dose statin hx of PCI/stent x2 in 2012 Chronic diastolic CHF CKD, baseline creatine 1.6; hold lasix, metformin and lisinopril Morbid obesity SUSANA with CPAP UTI currently on augmentin Fall - unable to walk, has intractable left lower back pain, h/o SI joint injection last admission . PT and PMR consulted. patient refusing placement wants to go home wit hPT BPH - cont meds Panniculitis - with prior balanitis, will use topical nystatin powder HTN - controlled DM2 - sliding scale patient will transfer to [facility]. cards wants to keep for 1 more day. History of Present Illness History of Present Illness to [facility] to [facility]. cards wants to follow for 1 more day dc summary and scripts in chart. Vitals Vitals Vital Signs Date Time Temp Pulse Resp B/P (MAP) Pulse Ox O2 Delivery O2 Flow Rate FiO2 05/18/20 08:32 75 05/18/20 07:00 98.8 16 137/64 (88) 93 Room Air 98.8 05/17/20 21:32 3.0 Physical Exam Lungs: Clear Labs LABS Laboratory Tests Test 05/17/20 10:45 05/17/20 11:42 05/17/20 14:08 05/17/20 16:42 Troponin I Quantitative 0.212 ng/mL (0.000-0.055) Glucose (Fingerstick) 195 mg/dL (70-99) 151 mg/dL (70-99) Activated Clotting Time 179 sec (92-181) Test 05/17/20 20:27 05/18/20 04:43 05/18/20 04:45 05/18/20 07:12 Glucose (Fingerstick) 175 mg/dL (70-99) 185 mg/dL (70-99) Sodium Level 139 mmol/L (136-145) Potassium Level 4.4 mmol/L (3.5-5.1) Chloride Level 106 mmol/L (98-107) Carbon Dioxide Level 21 mmol/L (21-32) Anion Gap 12 (6-14) Blood Urea Nitrogen 27 mg/dL (8-26) Creatinine 1.5 mg/dL (0.7-1.3) Estimated GFR (Cockcroft-Gault) 46.7 Glucose Level 196 mg/dL (70-99) Calcium Level 8.6 mg/dL (8.5-10.1) Triglycerides Level 140 mg/dL (0-150) Cholesterol Level 113 mg/dL (0-200) LDL Cholesterol, Calculated 48 mg/dL (0-100) VLDL Cholesterol, Calculated 28 mg/dL (0-40) Non-HDL Cholesterol Calculated 76 mg/dL (0-129) HDL Cholesterol 37 mg/dL (40-60) Cholesterol/HDL Ratio 3.1 White Blood Count 8.3 x10^3/uL (4.0-11.0) Red Blood Count 4.05 x10^6/uL (4.30-5.70) Hemoglobin 12.8 g/dL (13.0-17.5) Hematocrit 38.7 % (39.0-53.0) Mean Corpuscular Volume 96 fL (79-100) Mean Corpuscular Hemoglobin 32 pg (25-35) Mean Corpuscular Hemoglobin Concent 33 g/dL (31-37) Red Cell Distribution Width 15.4 % (11.5-14.5) Platelet Count 207 x10^3/uL (140-400) Neutrophils (%) (Auto) 67 % (31-73) Lymphocytes (%) (Auto) 21 % (24-48) Monocytes (%) (Auto) 9 % (0-9) Eosinophils (%) (Auto) 2 % (0-3) Basophils (%) (Auto) 1 % (0-3) Neutrophils # (Auto) 5.6 x10^3/uL (1.8-7.7) Lymphocytes # (Auto) 1.7 x10^3/uL (1.0-4.8) Monocytes # (Auto) 0.7 x10^3/uL (0.0-1.1) Eosinophils # (Auto) 0.2 x10^3/uL (0.0-0.7) Basophils # (Auto) 0.1 x10^3/uL (0.0-0.2) Assessment and Plan Assessmemt and Plan Problems Medical Problems: (1) Elevated troponin I level Status: Acute (2) Substernal precordial chest pain Status: Acute Comment Review of Relevant I have reviewed the following items jm (where applicable) has been applied. Labs Laboratory Tests Test 05/16/20 20:55 05/16/20 21:00 05/17/20 01:36 05/17/20 05:07 White Blood Count 9.6 x10^3/uL (4.0-11.0) Red Blood Count 4.17 x10^6/uL (4.30-5.70) Hemoglobin 13.3 g/dL (13.0-17.5) Hematocrit 39.3 % (39.0-53.0) Mean Corpuscular Volume 94 fL (79-100) Mean Corpuscular Hemoglobin 32 pg (25-35) Mean Corpuscular Hemoglobin Concent 34 g/dL (31-37) Red Cell Distribution Width 15.1 % (11.5-14.5) Platelet Count 203 x10^3/uL (140-400) Neutrophils (%) (Auto) 75 % (31-73) Lymphocytes (%) (Auto) 15 % (24-48) Monocytes (%) (Auto) 7 % (0-9) Eosinophils (%) (Auto) 3 % (0-3) Basophils (%) (Auto) 1 % (0-3) Neutrophils # (Auto) 7.2 x10^3/uL (1.8-7.7) Lymphocytes # (Auto) 1.4 x10^3/uL (1.0-4.8) Monocytes # (Auto) 0.7 x10^3/uL (0.0-1.1) Eosinophils # (Auto) 0.2 x10^3/uL (0.0-0.7) Basophils # (Auto) 0.1 x10^3/uL (0.0-0.2) Segmented Neutrophils % 77 % (35-66) Band Neutrophils % 4 % (0-9) Lymphocytes % 14 % (24-48) Monocytes % 2 % (0-10) Eosinophils % 2 % (0-5) Metamyelocytes % 1 % (0-0) Platelet Estimate Adequate (ADEQUATE) Sodium Level 138 mmol/L (136-145) Potassium Level 4.3 mmol/L (3.5-5.1) Chloride Level 103 mmol/L (98-107) Carbon Dioxide Level 22 mmol/L (21-32) Anion Gap 13 (6-14) Blood Urea Nitrogen 33 mg/dL (8-26) Creatinine 1.6 mg/dL (0.7-1.3) Estimated GFR (Cockcroft-Gault) 43.3 BUN/Creatinine Ratio 21 (6-20) Glucose Level 209 mg/dL (70-99) Calcium Level 8.2 mg/dL (8.5-10.1) Total Bilirubin 0.3 mg/dL (0.2-1.0) Aspartate Amino Transf (AST/SGOT) 36 U/L (15-37) Alanine Aminotransferase (ALT/SGPT) 107 U/L (16-63) Alkaline Phosphatase 136 U/L (46-116) Troponin I Quantitative 0.223 ng/mL (0.000-0.055) 0.359 ng/mL (0.000-0.055) 0.329 ng/mL (0.000-0.055) WL-Cho-J-Type Natriuretic Peptide 269 pg/mL (0-124) Total Protein 6.6 g/dL (6.4-8.2) Albumin 3.1 g/dL (3.4-5.0) Albumin/Globulin Ratio 0.9 (1.0-1.7) Lipase 124 U/L (73-393) Bedside Troponin I 0.20 ng/ml (<0.08) Test 05/17/20 09:01 05/17/20 09:50 05/17/20 10:45 05/17/20 11:42 Glucose (Fingerstick) 202 mg/dL (70-99) 195 mg/dL (70-99) Coronavirus (COVID-19)(PCR) Negative (NEGATIVE) Troponin I Quantitative 0.212 ng/mL (0.000-0.055) Test 05/17/20 14:08 05/17/20 16:42 05/17/20 20:27 05/18/20 04:43 Activated Clotting Time 179 sec (92-181) Glucose (Fingerstick) 151 mg/dL (70-99) 175 mg/dL (70-99) Sodium Level 139 mmol/L (136-145) Potassium Level 4.4 mmol/L (3.5-5.1) Chloride Level 106 mmol/L (98-107) Carbon Dioxide Level 21 mmol/L (21-32) Anion Gap 12 (6-14) Blood Urea Nitrogen 27 mg/dL (8-26) Creatinine 1.5 mg/dL (0.7-1.3) Estimated GFR (Cockcroft-Gault) 46.7 Glucose Level 196 mg/dL (70-99) Calcium Level 8.6 mg/dL (8.5-10.1) Triglycerides Level 140 mg/dL (0-150) Cholesterol Level 113 mg/dL (0-200) LDL Cholesterol, Calculated 48 mg/dL (0-100) VLDL Cholesterol, Calculated 28 mg/dL (0-40) Non-HDL Cholesterol Calculated 76 mg/dL (0-129) HDL Cholesterol 37 mg/dL (40-60) Cholesterol/HDL Ratio 3.1 Test 05/18/20 04:45 05/18/20 07:12 White Blood Count 8.3 x10^3/uL (4.0-11.0) Red Blood Count 4.05 x10^6/uL (4.30-5.70) Hemoglobin 12.8 g/dL (13.0-17.5) Hematocrit 38.7 % (39.0-53.0) Mean Corpuscular Volume 96 fL (79-100) Mean Corpuscular Hemoglobin 32 pg (25-35) Mean Corpuscular Hemoglobin Concent 33 g/dL (31-37) Red Cell Distribution Width 15.4 % (11.5-14.5) Platelet Count 207 x10^3/uL (140-400) Neutrophils (%) (Auto) 67 % (31-73) Lymphocytes (%) (Auto) 21 % (24-48) Monocytes (%) (Auto) 9 % (0-9) Eosinophils (%) (Auto) 2 % (0-3) Basophils (%) (Auto) 1 % (0-3) Neutrophils # (Auto) 5.6 x10^3/uL (1.8-7.7) Lymphocytes # (Auto) 1.7 x10^3/uL (1.0-4.8) Monocytes # (Auto) 0.7 x10^3/uL (0.0-1.1) Eosinophils # (Auto) 0.2 x10^3/uL (0.0-0.7) Basophils # (Auto) 0.1 x10^3/uL (0.0-0.2) Glucose (Fingerstick) 185 mg/dL (70-99) Laboratory Tests Test 05/17/20 10:45 05/17/20 11:42 05/17/20 14:08 05/17/20 16:42 Troponin I Quantitative 0.212 ng/mL (0.000-0.055) Glucose (Fingerstick) 195 mg/dL (70-99) 151 mg/dL (70-99) Activated Clotting Time 179 sec (92-181) Test 05/17/20 20:27 05/18/20 04:43 05/18/20 04:45 05/18/20 07:12 Glucose (Fingerstick) 175 mg/dL (70-99) 185 mg/dL (70-99) Sodium Level 139 mmol/L (136-145) Potassium Level 4.4 mmol/L (3.5-5.1) Chloride Level 106 mmol/L (98-107) Carbon Dioxide Level 21 mmol/L (21-32) Anion Gap 12 (6-14) Blood Urea Nitrogen 27 mg/dL (8-26) Creatinine 1.5 mg/dL (0.7-1.3) Estimated GFR (Cockcroft-Gault) 46.7 Glucose Level 196 mg/dL (70-99) Calcium Level 8.6 mg/dL (8.5-10.1) Triglycerides Level 140 mg/dL (0-150) Cholesterol Level 113 mg/dL (0-200) LDL Cholesterol, Calculated 48 mg/dL (0-100) VLDL Cholesterol, Calculated 28 mg/dL (0-40) Non-HDL Cholesterol Calculated 76 mg/dL (0-129) HDL Cholesterol 37 mg/dL (40-60) Cholesterol/HDL Ratio 3.1 White Blood Count 8.3 x10^3/uL (4.0-11.0) Red Blood Count 4.05 x10^6/uL (4.30-5.70) Hemoglobin 12.8 g/dL (13.0-17.5) Hematocrit 38.7 % (39.0-53.0) Mean Corpuscular Volume 96 fL (79-100) Mean Corpuscular Hemoglobin 32 pg (25-35) Mean Corpuscular Hemoglobin Concent 33 g/dL (31-37) Red Cell Distribution Width 15.4 % (11.5-14.5) Platelet Count 207 x10^3/uL (140-400) Neutrophils (%) (Auto) 67 % (31-73) Lymphocytes (%) (Auto) 21 % (24-48) Monocytes (%) (Auto) 9 % (0-9) Eosinophils (%) (Auto) 2 % (0-3) Basophils (%) (Auto) 1 % (0-3) Neutrophils # (Auto) 5.6 x10^3/uL (1.8-7.7) Lymphocytes # (Auto) 1.7 x10^3/uL (1.0-4.8) Monocytes # (Auto) 0.7 x10^3/uL (0.0-1.1) Eosinophils # (Auto) 0.2 x10^3/uL (0.0-0.7) Basophils # (Auto) 0.1 x10^3/uL (0.0-0.2) Medications Current Medications Nitroglycerin (Nitrostat) 0.4 mg 1X PRN SL CHEST PAIN Last administered on 05/16/20at 20:49; Start 05/16/20 at 20:45 Fentanyl Citrate (Fentanyl 2ml Vial) 50 mcg 1X ONCE IVP Last administered on 05/16/20at 21:47; Start 05/16/20 at 22:00; Stop 05/16/20 at 22:01; Status DC Fentanyl Citrate (Fentanyl 2ml Vial) 100 mcg STK-MED ONCE .ROUTE ; Start 05/16/20 at 21:45; Stop 05/16/20 at 21:45; Status DC Enoxaparin Sodium (Lovenox 40mg Syringe) 40 mg 1X ONCE SQ Last administered on 05/17/20at 00:16; Start 05/16/20 at 23:30; Stop 05/16/20 at 23:31; Status DC Aspirin (Aspirin Chewable) 324 mg 1X ONCE PO ; Start 05/16/20 at 23:30; Stop 05/16/20 at 23:31; Status DC Clopidogrel Bisulfate (Plavix) 300 mg 1X ONCE PO Last administered on 05/17/20at 00:17; Start 05/16/20 at 23:30; Stop 05/16/20 at 23:31; Status DC Ondansetron HCl (Zofran) 4 mg PRN Q8HRS PRN IV NAUSEA/VOMITING 1ST CHOICE; Start 05/16/20 at 23:15; Stop 05/17/20 at 23:14; Status DC Fentanyl Citrate (Fentanyl 2ml Vial) 50 mcg 1X ONCE IVP Last administered on 05/17/20at 00:16; Start 05/17/20 at 00:30; Stop 05/17/20 at 00:31; Status DC Nitroglycerin (Nitro-Bid Oint) 1 inch 1X ONCE TP Last administered on at 01:55; Start 05/17/20 at 00:30; Stop 05/17/20 at 00:31; Status DC Fentanyl Citrate (Fentanyl 2ml Vial) 50 mcg PRN Q2HR PRN IVP SEVERE PAIN 7-10 Last administered on 05/17/20at 09:41; Start 05/17/20 at 01:30; Stop 05/17/20 at 14:59; Status DC Insulin Human Lispro (HumaLOG) 0-7 UNITS TIDWMEALS SQ Last administered on 05/18/20at 08:41; Start 05/17/20 at 08:00 Dextrose (Dextrose 50%-Water Syringe) 12.5 gm PRN Q15MIN PRN IV SEE COMMENTS; Start 05/17/20 at 01:45 Aspirin (Ecotrin) 81 mg DAILY PO Last administered on 05/18/20at 08:31; Start 05/17/20 at 09:00 Atorvastatin Calcium (Lipitor) 20 mg HS PO Last administered on 05/17/20at 21:32; Start 05/17/20 at 21:00 Clopidogrel Bisulfate (Plavix) 75 mg DAILY PO Last administered on 05/18/20at 08:30; Start 05/17/20 at 09:00 Metoprolol Succinate (Toprol Xl) 50 mg DAILY PO Last administered on 05/18/20at 08:31; Start 05/17/20 at 09:00 Midazolam HCl (Versed) 2 mg STK-MED ONCE .ROUTE ; Start 05/17/20 at 12:55; Stop 05/17/20 at 12:55; Status DC Fentanyl Citrate (Fentanyl 2ml Vial) 100 mcg STK-MED ONCE .ROUTE ; Start 05/17/20 at 12:55; Stop 05/17/20 at 12:55; Status DC Lidocaine HCl (Xylocaine-Mpf 1% 2ml Vial) 2 ml STK-MED ONCE .ROUTE ; Start 05/17/20 at 12:57; Stop 05/17/20 at 12:58; Status DC Iodixanol (Visipaque 320) 100 ml STK-MED ONCE .ROUTE ; Start 05/17/20 at 12:57; Stop 05/17/20 at 12:58; Status DC Heparin Sodium/ Sodium Chloride 1,500 ml @ As Directed STK-MED ONCE .ROUTE ; Start 05/17/20 at 12:58; Stop 05/17/20 at 12:58; Status DC Verapamil HCl (Verapamil) 5 mg STK-MED ONCE .ROUTE ; Start 05/17/20 at 13:01; Stop 05/17/20 at 13:01; Status DC Heparin Sodium (Porcine) (Heparin Sodium) 10,000 unit STK-MED ONCE .ROUTE ; Start 05/17/20 at 13:01; Stop 05/17/20 at 13:01; Status DC Nitroglycerin (Nitroglycerin) 200 mcg STK-MED ONCE .ROUTE ; Start 05/17/20 at 13:01; Stop 05/17/20 at 13:01; Status DC Nitroglycerin (Nitroglycerin) 200 mcg 1X ONCE IART Last administered on 05/17/20at 13:45; Start 05/17/20 at 13:45; Stop 05/17/20 at 13:47; Status DC Verapamil HCl (Verapamil) 2.5 mg 1X ONCE IART Last administered on 05/17/20at 13:45; Start 05/17/20 at 13:45; Stop 05/17/20 at 13:47; Status DC Heparin Sodium (Porcine) (Heparin Sodium) 2,500 unit 1X ONCE IART Last administered on 05/17/20at 13:45; Start 05/17/20 at 13:45; Stop 05/17/20 at 13:47; Status DC Heparin Sodium/ Sodium Chloride (HEPARIN for ARTERIAL LINE FLUSH) 1,000 unit 1X ONCE IART Last administered on 05/17/20at 13:45; Start 05/17/20 at 13:45; Stop 05/17/20 at 13:47; Status DC Heparin Sodium/ Sodium Chloride (HEPARIN for ARTERIAL LINE FLUSH) 1,000 unit 1X ONCE IART Last administered on 05/17/20at 13:45; Start 05/17/20 at 13:45; Stop 05/17/20 at 13:47; Status DC Iodixanol (Visipaque 320) 100 ml 1X ONCE IART Last administered on 05/17/20at 13:45; Start 05/17/20 at 13:45; Stop 05/17/20 at 13:47; Status DC Lidocaine HCl (Xylocaine-Mpf 1% 2ml Vial) 2 ml 1X ONCE INJ Last administered on 05/17/20at 13:45; Start 05/17/20 at 13:45; Stop 05/17/20 at 13:47; Status DC Heparin Sodium (Porcine) (Heparin Sodium) 5,000 unit 1X ONCE IV Last administered on 05/17/20at 14:00; Start 05/17/20 at 14:00; Stop 05/17/20 at 14:01; Status DC Nitroglycerin (Nitroglycerin) 200 mcg STK-MED ONCE .ROUTE ; Start 05/17/20 at 14:01; Stop 05/17/20 at 14:01; Status DC Nitroglycerin (Nitroglycerin) 200 mcg 1X ONCE IART Last administered on 05/17/20at 14:15; Start 05/17/20 at 14:15; Stop 05/17/20 at 14:16; Status DC Nitroglycerin (Nitroglycerin) 200 mcg 1X ONCE IART Last administered on 05/17/20at 14:23; Start 05/17/20 at 14:30; Stop 05/17/20 at 14:31; Status DC Heparin Sodium (Porcine) (Heparin Sodium) 10,000 unit STK-MED ONCE .ROUTE ; Start 05/17/20 at 14:28; Stop 05/17/20 at 14:28; Status DC Clopidogrel Bisulfate (Plavix) 300 mg 1X ONCE PO Last administered on 05/17/20at 15:05; Start 05/17/20 at 14:30; Stop 05/17/20 at 14:32; Status DC Heparin Sodium (Porcine) (Heparin Sodium) 3,000 unit 1X ONCE IV Last administered on 05/17/20at 14:30; Start 05/17/20 at 14:30; Stop 05/17/20 at 14:32; Status DC Morphine Sulfate (Morphine Sulfate) 2 mg PRN Q4HRS PRN IV PAIN Last administered on 05/18/20at 06:51; Start 05/17/20 at 15:00 Heparin Sodium/ Sodium Chloride (HEPARIN for ARTERIAL LINE FLUSH) 1,000 unit 1X ONCE IART ; Start 05/17/20 at 15:15; Stop 05/17/20 at 15:16; Status Cancel Heparin Sodium/ Sodium Chloride (HEPARIN for ARTERIAL LINE FLUSH) 1,000 unit 1X ONCE IART ; Start 05/17/20 at 15:15; Stop 05/17/20 at 15:16; Status Cancel Midazolam HCl (Versed) 2 mg 1X ONCE IV Last administered on 05/17/20at 15:15; Start 05/17/20 at 15:15; Stop 05/17/20 at 15:48; Status DC Fentanyl Citrate (Fentanyl 2ml Vial) 100 mcg 1X ONCE IV ; Start 05/17/20 at 15:15; Stop 05/17/20 at 15:16; Status Cancel Lidocaine HCl (Lidocaine 1% 20ml Vial) 20 ml 1X ONCE INJ ; Start 05/17/20 at 15:15; Stop 05/17/20 at 15:16; Status Cancel Midazolam HCl (Versed) 2 mg 1X ONCE IV ; Start 05/17/20 at 15:30; Stop 05/17/20 at 15:31; Status Cancel Allopurinol (Zyloprim) 300 mg DAILY PO Last administered on 05/18/20at 08:30; Start 05/17/20 at 16:00 Amoxicillin/ Clavulanate Potassium (Augmentin 500/ 125mg) 1 tab BID PO Last administered on 05/18/20 08:31; Start 05/17/20 at 21:00 Ergocalciferol (Vitamin D2) 50,000 unit WEEKLY PO ; Start 05/24/20 at 09:00 Ferrous Sulfate (Feosol) 325 mg DAILY PO Last administered on 05/18/20at 08:30; Start 05/17/20 at 16:00 Fluticasone Propionate (Flonase) 2 spray DAILY NS ; Start 05/17/20 at 16:00 Isosorbide Mononitrate (Imdur) 60 mg DAILY PO Last administered on 05/18/20 08:32; Start 05/17/20 at 16:00 Pantoprazole Sodium (Protonix) 40 mg DAILYAC PO Last administered on 05/18/20 08:32; Start 05/17/20 at 16:00 Tamsulosin HCl (Flomax) 0.4 mg HS PO Last administered on 05/17/20at 21:32; Start 05/17/20 at 21:00 Tizanidine HCl (Zanaflex) 4 mg QHS PO Last administered on 05/17/20 21:32; Start 05/17/20 at 21:00 Ascorbic Acid (Vitamin C) 1,000 mg DAILY PO Last administered on 05/18/20 08:31; Start 05/17/20 at 16:00 Lubiprostone (Amitiza) 24 mcg BIDWMEALS PO Last administered on 05/18/20 08:30; Start 05/17/20 at 17:00 Multivitamins (Thera M Plus) 1 tab DAILY PO Last administered on 05/18/20at 08:31; Start 05/17/20 at 16:00 Heparin Sodium (Porcine) (Heparin Sodium) 5,000 unit Q8HRS SQ Last administered on 05/18/20at 06:58; Start 05/17/20 at 22:00 Acetaminophen/ Hydrocodone Bitart (Lortab 5/325) 1 tab PRN Q4HRS PRN PO PAIN; Start 05/18/20 at 09:15 Methylprednisolone Acetate (DEPO-Medrol 40MG VIAL) 40 mg 1X ONCE INJ ; Start 05/18/20 at 10:00; Stop 05/18/20 at 10:01; Status DC Bupivacaine HCl (Sensorcaine-Mpf 0.25%) 10 ml 1X ONCE IJ ; Start 05/18/20 at 10:00; Stop 05/18/20 at 10:01; Status DC Active Scripts Active Hydrocodone-Apap 5-325 (Hydrocodone Bit/Acetaminophen) 1 Tab Tablet 1 Tab PO PRN Q6HRS PRN 5 Days Amox Tr-K Clv 500-125 Mg Tab (Amoxicillin/Potassium Clav) 1 Each Tablet 1 Tab PO BID 10 Days Aspirin Ec (Aspirin) 81 Mg Tablet.dr 1 Tab PO DAILY Reported Flomax (Tamsulosin Hcl) 0.4 Mg Cap.er.24h 1 Cap PO HS Fluticasone Propionate Nasal [place] (Fluticasone Propionate) 16 Gm [place].susp 2 [place] NS DAILY Linzess (Linaclotide) 145 Mcg Capsule 145 Mcg PO 3X/WEEK Fexofenadine Hcl 180 Mg Tablet 1 Tab PO DAILY Vitamin C (Ascorbic Acid) 500 Mg Capsule.er 1,000 Mg PO DAILY One Daily For Men Tablet (Multivits-Minerals/Fa/Lycopene) 1 Each Tablet 1 Tab PO DAILY 30 Days Iron (Ferrous Sulfate) 325 Mg Tablet 65 Mg PO DAILY Allopurinol 300 Mg Tablet 1 Tab PO DAILY Vitamin D2 (Ergocalciferol (Vitamin D2)) 50,000 Unit Capsule 50,000 Unit PO WEEKLY Dose given on the Take on Pantoprazole Sodium (Pantoprazole Sodium) 40 Mg Tablet. 1 Tab PO DAILY Gave this morning take tomorrow morning Tizanidine Hcl 4 Mg Tablet 1 Tab PO QHS Gave dose last night Take tonight before bedtime Vascepa (Icosapent Ethyl) 1 Gm Capsule 1 Gm PO Not given on this admission Take as previoulsy instructed Atorvastatin Calcium 20 Mg Tablet 1 Tab PO HS Gave last night Take tonight Clopidogrel (Clopidogrel Bisulfate) 75 Mg Tablet 1 Tab PO DAILY Gave this morning take tomorrow morning Isosorbide Mononitrate Er (Isosorbide Mononitrate) 30 Mg Tab.er.24h 60 Mg PO DAILY Gave this morning take tomorrow morning Repaglinide 1 Mg Tablet 1 Mg PO Not given on this admission Continue as previously instructed Toprol Xl (Metoprolol Succinate) 50 Mg Tab.er.24h 1 Tab PO DAILY Gave this morning take tomorrow morning Vitals/I & O Vital Sign - Last 24 Hours 05/17/20 05/17/20 05/17/2020 10:55 13:45 14:24 15:00 Temp 97.8 97.8 Pulse 94 74 75 78 Resp 20 24 B/P (MAP) 140/78 (98) 131/78 (95) Pulse Ox 92 95 93 O2 Delivery NonRebreather Mask 05/17/20 05/17/20 05/17/20 05/17/20 15:06 15:15 15:30 15:45 Pulse 80 80 74 B/P (MAP) 137/49 (78) 127/80 (96) 121/72 (88) Pulse Ox 94 95 94 92 O2 Delivery Room Air 05/17/20 05/17/20 05/17/20 05/17/20 16:15 16:45 17:35 17:45 Pulse 77 77 81 77 B/P (MAP) 128/75 (92) 126/73 (90) 127/80 142/67 (92) Pulse Ox 92 92 92 05/17/20 05/17/20 05/17/20 05/17/20 18:39 19:47 21:32 22:02 Temp 97.5 97.5 Pulse 82 Resp 20 18 18 B/P (MAP) 139/73 (95) Pulse Ox 95 95 95 O2 Delivery Room Air Room Air Room Air Room Air O2 Flow Rate 3.0 05/17/20 05/18/20 05/18/20 05/18/20 23:05 02:28 02:34 02:58 Temp 98.3 98.1 98.3 98.1 Pulse 67 82 Resp 26 18 20 18 B/P (MAP) 127/71 (89) 125/69 (87) Pulse Ox 92 92 100 100 O2 Delivery Room Air BiPAP/CPAP Room Air Room Air 05/18/20 05/18/20 05/18/20 05/18/20 06:51 07:00 08:31 08:32 Temp 98.8 98.8 Pulse 73 75 75 Resp 18 16 B/P (MAP) 137/64 (88) Pulse Ox 100 93 O2 Delivery Room Air Room Air Intake and Output 05/17/20 05/17/20 05/18/20 15:00 23:00 07:00 Intake Total 240 ml 340 ml 300 ml Output Total 250 ml 350 ml Balance 240 ml 90 ml -50 ml Justicifation of Admission Dx: Justifications for Admission: Justification of Admission Dx: Yes Angina: Symp at Rest KATH CABALLERO MD May 18, 2020 10:39
--- NOTE | 2020-05-18 10:45 | EKG ---
[facility] [address] [place] [id number] Test Date: 2020-05-18 Test Time: 10:30:48 Pat Name: HARPREET HERR Department: Room: 244 Gender: M [employer]: : 1950 Requested By: JACE AGUSTIN Order Number: [id number] Reading MD: Michael Galvan Measurements Intervals [place] Rate: 78 P: 32 PA: 184 QRS: 47 QRSD: 92 T: 47 QT: 418 QTc: 480 Interpretive Statements SINUS RHYTHM ATRIAL PREMATURE COMPLEX(ES) T ABNORMALITY IN ANTEROSEPTAL LEADS PROLONGED QT Electronically Signed On 05-18-2020 16:36:37 CDT by Michael Galvan
[2020-05-18] MEDS: HYDROcodone/APAP 5/325MG 1 TAB TABLET PO PRN ×3 (10:50→20:56)
--- NOTE | 2020-05-18 10:51 | NUR ---
Nursing: Patient discharged planned. Patient began having chest pain, Dr. Koenig on unit. EKG ordered. Dr. Koenig would like to monitor patient another night. Social work notified. Dr. Arnett notified. Discharge cancelled.
[2020-05-18 11:21] VITALS: BP 126/68
--- NOTE | 2020-05-18 14:18 | PDOC ---
PROGRESS NOTES Subjective Subjective Patient seen and examined Objective Objective Vital Signs Date Time Temp Pulse Resp B/P (MAP) Pulse Ox O2 Delivery O2 Flow Rate FiO2 05/18/20 11:21 74 14 126/68 (87) 95 Room Air 05/18/20 07:00 98.8 98.8 05/17/20 21:32 3.0 Intake and Output 05/18/20 07:00 Intake Total 880 ml Output Total 600 ml Balance 280 ml Intake Oral 880 ml Output Urine Total 600 ml # Voids 1 Physical Exam Abdomen: Normal bowel sounds Heart: Regular rate General: mild distress Lungs: Clear to auscultation Assessment Assessment Problems Medical Problems: (1) Elevated troponin I level Status: Acute (2) Substernal precordial chest pain Status: Acute Coronary artery disease. Status post stenting to the right coronary yesterday. Patient reports episodes of ongoing chest pressure this morning. EKG shows no acute changes. We will continue present medications. Will probably need to monitor the patient overnight while in the hospital unless his pain resolves t madyson. Chronic diastolic CHF; appears compendated Hypertension; controlled Hyperlipiemia; statin Diabetes, II; as pe PCP Morbid obesity. SUSANA with CPAP Comment Review of Relevant I have reviewed the following items jm (where applicable) has been applied. Labs Laboratory Tests Test 05/16/20 20:55 05/16/20 21:00 05/17/20 01:36 05/17/20 05:07 White Blood Count 9.6 x10^3/uL (4.0-11.0) Red Blood Count 4.17 x10^6/uL (4.30-5.70) Hemoglobin 13.3 g/dL (13.0-17.5) Hematocrit 39.3 % (39.0-53.0) Mean Corpuscular Volume 94 fL (79-100) Mean Corpuscular Hemoglobin 32 pg (25-35) Mean Corpuscular Hemoglobin Concent 34 g/dL (31-37) Red Cell Distribution Width 15.1 % (11.5-14.5) Platelet Count 203 x10^3/uL (140-400) Neutrophils (%) (Auto) 75 % (31-73) Lymphocytes (%) (Auto) 15 % (24-48) Monocytes (%) (Auto) 7 % (0-9) Eosinophils (%) (Auto) 3 % (0-3) Basophils (%) (Auto) 1 % (0-3) Neutrophils # (Auto) 7.2 x10^3/uL (1.8-7.7) Lymphocytes # (Auto) 1.4 x10^3/uL (1.0-4.8) Monocytes # (Auto) 0.7 x10^3/uL (0.0-1.1) Eosinophils # (Auto) 0.2 x10^3/uL (0.0-0.7) Basophils # (Auto) 0.1 x10^3/uL (0.0-0.2) Segmented Neutrophils % 77 % (35-66) Band Neutrophils % 4 % (0-9) Lymphocytes % 14 % (24-48) Monocytes % 2 % (0-10) Eosinophils % 2 % (0-5) Metamyelocytes % 1 % (0-0) Platelet Estimate Adequate (ADEQUATE) Sodium Level 138 mmol/L (136-145) Potassium Level 4.3 mmol/L (3.5-5.1) Chloride Level 103 mmol/L (98-107) Carbon Dioxide Level 22 mmol/L (21-32) Anion Gap 13 (6-14) Blood Urea Nitrogen 33 mg/dL (8-26) Creatinine 1.6 mg/dL (0.7-1.3) Estimated GFR (Cockcroft-Gault) 43.3 BUN/Creatinine Ratio 21 (6-20) Glucose Level 209 mg/dL (70-99) Calcium Level 8.2 mg/dL (8.5-10.1) Total Bilirubin 0.3 mg/dL (0.2-1.0) Aspartate Amino Transf (AST/SGOT) 36 U/L (15-37) Alanine Aminotransferase (ALT/SGPT) 107 U/L (16-63) Alkaline Phosphatase 136 U/L (46-116) Troponin I Quantitative 0.223 ng/mL (0.000-0.055) 0.359 ng/mL (0.000-0.055) 0.329 ng/mL (0.000-0.055) GJ-Nmk-P-Type Natriuretic Peptide 269 pg/mL (0-124) Total Protein 6.6 g/dL (6.4-8.2) Albumin 3.1 g/dL (3.4-5.0) Albumin/Globulin Ratio 0.9 (1.0-1.7) Lipase 124 U/L (73-393) Bedside Troponin I 0.20 ng/ml (<0.08) Test 05/17/20 09:01 05/17/20 09:50 05/17/20 10:45 05/17/20 11:42 Glucose (Fingerstick) 202 mg/dL (70-99) 195 mg/dL (70-99) Coronavirus (COVID-19)(PCR) Negative (NEGATIVE) Troponin I Quantitative 0.212 ng/mL (0.000-0.055) Test 05/17/20 14:08 05/17/20 16:42 05/17/20 20:27 05/18/20 04:43 Activated Clotting Time 179 sec (92-181) Glucose (Fingerstick) 151 mg/dL (70-99) 175 mg/dL (70-99) Sodium Level 139 mmol/L (136-145) Potassium Level 4.4 mmol/L (3.5-5.1) Chloride Level 106 mmol/L (98-107) Carbon Dioxide Level 21 mmol/L (21-32) Anion Gap 12 (6-14) Blood Urea Nitrogen 27 mg/dL (8-26) Creatinine 1.5 mg/dL (0.7-1.3) Estimated GFR (Cockcroft-Gault) 46.7 Glucose Level 196 mg/dL (70-99) Calcium Level 8.6 mg/dL (8.5-10.1) Triglycerides Level 140 mg/dL (0-150) Cholesterol Level 113 mg/dL (0-200) LDL Cholesterol, Calculated 48 mg/dL (0-100) VLDL Cholesterol, Calculated 28 mg/dL (0-40) Non-HDL Cholesterol Calculated 76 mg/dL (0-129) HDL Cholesterol 37 mg/dL (40-60) Cholesterol/HDL Ratio 3.1 Test 05/18/20 04:45 05/18/20 07:12 05/18/20 11:16 White Blood Count 8.3 x10^3/uL (4.0-11.0) Red Blood Count 4.05 x10^6/uL (4.30-5.70) Hemoglobin 12.8 g/dL (13.0-17.5) Hematocrit 38.7 % (39.0-53.0) Mean Corpuscular Volume 96 fL (79-100) Mean Corpuscular Hemoglobin 32 pg (25-35) Mean Corpuscular Hemoglobin Concent 33 g/dL (31-37) Red Cell Distribution Width 15.4 % (11.5-14.5) Platelet Count 207 x10^3/uL (140-400) Neutrophils (%) (Auto) 67 % (31-73) Lymphocytes (%) (Auto) 21 % (24-48) Monocytes (%) (Auto) 9 % (0-9) Eosinophils (%) (Auto) 2 % (0-3) Basophils (%) (Auto) 1 % (0-3) Neutrophils # (Auto) 5.6 x10^3/uL (1.8-7.7) Lymphocytes # (Auto) 1.7 x10^3/uL (1.0-4.8) Monocytes # (Auto) 0.7 x10^3/uL (0.0-1.1) Eosinophils # (Auto) 0.2 x10^3/uL (0.0-0.7) Basophils # (Auto) 0.1 x10^3/uL (0.0-0.2) Glucose (Fingerstick) 185 mg/dL (70-99) 200 mg/dL (70-99) Laboratory Tests Test 05/17/20 16:42 05/17/20 20:27 05/18/20 04:43 05/18/20 04:45 Glucose (Fingerstick) 151 mg/dL (70-99) 175 mg/dL (70-99) Sodium Level 139 mmol/L (136-145) Potassium Level 4.4 mmol/L (3.5-5.1) Chloride Level 106 mmol/L (98-107) Carbon Dioxide Level 21 mmol/L (21-32) Anion Gap 12 (6-14) Blood Urea Nitrogen 27 mg/dL (8-26) Creatinine 1.5 mg/dL (0.7-1.3) Estimated GFR (Cockcroft-Gault) 46.7 Glucose Level 196 mg/dL (70-99) Calcium Level 8.6 mg/dL (8.5-10.1) Triglycerides Level 140 mg/dL (0-150) Cholesterol Level 113 mg/dL (0-200) LDL Cholesterol, Calculated 48 mg/dL (0-100) VLDL Cholesterol, Calculated 28 mg/dL (0-40) Non-HDL Cholesterol Calculated 76 mg/dL (0-129) HDL Cholesterol 37 mg/dL (40-60) Cholesterol/HDL Ratio 3.1 White Blood Count 8.3 x10^3/uL (4.0-11.0) Red Blood Count 4.05 x10^6/uL (4.30-5.70) Hemoglobin 12.8 g/dL (13.0-17.5) Hematocrit 38.7 % (39.0-53.0) Mean Corpuscular Volume 96 fL (79-100) Mean Corpuscular Hemoglobin 32 pg (25-35) Mean Corpuscular Hemoglobin Concent 33 g/dL (31-37) Red Cell Distribution Width 15.4 % (11.5-14.5) Platelet Count 207 x10^3/uL (140-400) Neutrophils (%) (Auto) 67 % (31-73) Lymphocytes (%) (Auto) 21 % (24-48) Monocytes (%) (Auto) 9 % (0-9) Eosinophils (%) (Auto) 2 % (0-3) Basophils (%) (Auto) 1 % (0-3) Neutrophils # (Auto) 5.6 x10^3/uL (1.8-7.7) Lymphocytes # (Auto) 1.7 x10^3/uL (1.0-4.8) Monocytes # (Auto) 0.7 x10^3/uL (0.0-1.1) Eosinophils # (Auto) 0.2 x10^3/uL (0.0-0.7) Basophils # (Auto) 0.1 x10^3/uL (0.0-0.2) Test 05/18/20 07:12 05/18/20 11:16 Glucose (Fingerstick) 185 mg/dL (70-99) 200 mg/dL (70-99) Medications Current Medications Nitroglycerin (Nitrostat) 0.4 mg 1X PRN SL CHEST PAIN Last administered on 05/16/20at 20:49; Start 05/16/20 at 20:45 Fentanyl Citrate (Fentanyl 2ml Vial) 50 mcg 1X ONCE IVP Last administered on 05/16/20at 21:47; Start 05/16/20 at 22:00; Stop 05/16/20 at 22:01; Status DC Fentanyl Citrate (Fentanyl 2ml Vial) 100 mcg STK-MED ONCE .ROUTE ; Start 05/16/20 at 21:45; Stop 05/16/20 at 21:45; Status DC Enoxaparin Sodium (Lovenox 40mg Syringe) 40 mg 1X ONCE SQ Last administered on 05/17/20at 00:16; Start 05/16/20 at 23:30; Stop 05/16/20 at 23:31; Status DC Aspirin (Aspirin Chewable) 324 mg 1X ONCE PO ; Start 05/16/20 at 23:30; Stop 05/16/20 at 23:31; Status DC Clopidogrel Bisulfate (Plavix) 300 mg 1X ONCE PO Last administered on 05/17/20at 00:17; Start 05/16/20 at 23:30; Stop 05/16/20 at 23:31; Status DC Ondansetron HCl (Zofran) 4 mg PRN Q8HRS PRN IV NAUSEA/VOMITING 1ST CHOICE; Start 05/16/20 at 23:15; Stop 05/17/20 at 23:14; Status DC Fentanyl Citrate (Fentanyl 2ml Vial) 50 mcg 1X ONCE IVP Last administered on 05/17/20at 00:16; Start 05/17/20 at 00:30; Stop 05/17/20 at 00:31; Status DC Nitroglycerin (Nitro-Bid Oint) 1 inch 1X ONCE TP Last administered on 05/17/20at 01:55; Start 05/17/20 at 00:30; Stop 05/17/20 at 00:31; Status DC Fentanyl Citrate (Fentanyl 2ml Vial) 50 mcg PRN Q2HR PRN IVP SEVERE PAIN 7-10 Last administered on 05/17/20at 09:41; Start 05/17/20 at 01:30; Stop 05/17/20 at 14:59; Status DC Insulin Human Lispro (HumaLOG) 0-7 UNITS TIDWMEALS SQ Last administered on 05/18/20at 13:15; Start 05/17/20 at 08:00 Dextrose (Dextrose 50%-Water Syringe) 12.5 gm PRN Q15MIN PRN IV SEE COMMENTS; Start 05/17/20 at 01:45 Aspirin (Ecotrin) 81 mg DAILY PO Last administered on 05/18/20at 08:31; Start 05/17/20 at 09:00 Atorvastatin Calcium (Lipitor) 20 mg HS PO Last administered on 05/17/20at 21:32; Start 05/17/20 at 21:00 Clopidogrel Bisulfate (Plavix) 75 mg DAILY PO Last administered on 05/18/20at 08:30; Start 05/17/20 at 09:00 Metoprolol Succinate (Toprol Xl) 50 mg DAILY PO Last administered on 05/18/20at 08:31; Start 05/17/20 at 09:00 Midazolam HCl (Versed) 2 mg STK-MED ONCE .ROUTE ; Start 05/17/20 at 12:55; Stop 05/17/20 at 12:55; Status DC Fentanyl Citrate (Fentanyl 2ml Vial) 100 mcg STK-MED ONCE .ROUTE ; Start 05/17/20 at 12:55; Stop 05/17/20 at 12:55; Status DC Lidocaine HCl (Xylocaine-Mpf 1% 2ml Vial) 2 ml STK-MED ONCE .ROUTE ; Start 05/17/20 at 12:57; Stop 05/17/20 at 12:58; Status DC Iodixanol (Visipaque 320) 100 ml STK-MED ONCE .ROUTE ; Start 05/17/20 at 12:57; Stop 05/17/20 at 12:58; Status DC Heparin Sodium/ Sodium Chloride 1,500 ml @ As Directed STK-MED ONCE .ROUTE ; Start 05/17/20 at 12:58; Stop 05/17/20 at 12:58; Status DC Verapamil HCl (Verapamil) 5 mg STK-MED ONCE .ROUTE ; Start 05/17/20 at 13:01; Stop 05/17/20 at 13:01; Status DC Heparin Sodium (Porcine) (Heparin Sodium) 10,000 unit STK-MED ONCE .ROUTE ; Start 05/17/20 at 13:01; Stop 05/17/20 at 13:01; Status DC Nitroglycerin (Nitroglycerin) 200 mcg STK-MED ONCE .ROUTE ; Start 05/17/20 at 13:01; Stop 05/17/20 at 13:01; Status DC Nitroglycerin (Nitroglycerin) 200 mcg 1X ONCE IART Last administered on 05/17/20at 13:45; Start 05/17/20 at 13:45; Stop 05/17/20 at 13:47; Status DC Verapamil HCl (Verapamil) 2.5 mg 1X ONCE IART Last administered on 05/17/20at 13:45; Start 05/17/20 at 13:45; Stop 05/17/20 at 13:47; Status DC Heparin Sodium (Porcine) (Heparin Sodium) 2,500 unit 1X ONCE IART Last administered on 05/17/20at 13:45; Start 05/17/20 at 13:45; Stop 05/17/20 at 13:47; Status DC Heparin Sodium/ Sodium Chloride (HEPARIN for ARTERIAL LINE FLUSH) 1,000 unit 1X ONCE IART Last administered on 05/17/20at 13:45; Start 05/17/20 at 13:45; Stop 05/17/20 at 13:47; Status DC Heparin Sodium/ Sodium Chloride (HEPARIN for ARTERIAL LINE FLUSH) 1,000 unit 1X ONCE IART Last administered on 05/17/20at 13:45; Start 05/17/20 at 13:45; Stop 05/17/20 at 13:47; Status DC Iodixanol (Visipaque 320) 100 ml 1X ONCE IART Last administered on 05/17/20at 13:45; Start 05/17/20 at 13:45; Stop 05/17/20 at 13:47; Status DC Lidocaine HCl (Xylocaine-Mpf 1% 2ml Vial) 2 ml 1X ONCE INJ Last administered on 05/17/20at 13:45; Start 05/17/20 at 13:45; Stop 05/17/20 at 13:47; Status DC Heparin Sodium (Porcine) (Heparin Sodium) 5,000 unit 1X ONCE IV Last administered on 05/17/20at 14:00; Start 05/17/20 at 14:00; Stop 05/17/20 at 14:01; Status DC Nitroglycerin (Nitroglycerin) 200 mcg STK-MED ONCE .ROUTE ; Start 05/17/20 at 14:01; Stop 05/17/20 at 14:01; Status DC Nitroglycerin (Nitroglycerin) 200 mcg 1X ONCE IART Last administered on 05/17/20at 14:15; Start 05/17/20 at 14:15; Stop 05/17/20 at 14:16; Status DC Nitroglycerin (Nitroglycerin) 200 mcg 1X ONCE IART Last administered on 05/17/20at 14:23; Start 05/17/20 at 14:30; Stop 05/17/20 at 14:31; Status DC Heparin Sodium (Porcine) (Heparin Sodium) 10,000 unit STK-MED ONCE .ROUTE ; Start 05/17/20 at 14:28; Stop 05/17/20 at 14:28; Status DC Clopidogrel Bisulfate (Plavix) 300 mg 1X ONCE PO Last administered on 05/17/20at 15:05; Start 05/17/20 at 14:30; Stop 05/17/20 at 14:32; Status DC Heparin Sodium (Porcine) (Heparin Sodium) 3,000 unit 1X ONCE IV Last administered on 05/17/20at 14:30; Start 05/17/20 at 14:30; Stop 05/17/20 at 14:32; Status DC Morphine Sulfate (Morphine Sulfate) 2 mg PRN Q4HRS PRN IV PAIN Last administered on 05/18/20at 06:51; Start 05/17/20 at 15:00 Heparin Sodium/ Sodium Chloride (HEPARIN for ARTERIAL LINE FLUSH) 1,000 unit 1X ONCE IART ; Start 05/17/20 at 15:15; Stop 05/17/20 at 15:16; Status Cancel Heparin Sodium/ Sodium Chloride (HEPARIN for ARTERIAL LINE FLUSH) 1,000 unit 1X ONCE IART ; Start 05/17/20 at 15:15; Stop 05/17/20 at 15:16; Status Cancel Midazolam HCl (Versed) 2 mg 1X ONCE IV Last administered on 05/17/20at 15:15; Start 05/17/20 at 15:15; Stop 05/17/20 at 15:48; Status DC Fentanyl Citrate (Fentanyl 2ml Vial) 100 mcg 1X ONCE IV ; Start 05/17/20 at 15:15; Stop 05/17/20 at 15:16; Status Cancel Lidocaine HCl (Lidocaine 1% 20ml Vial) 20 ml 1X ONCE INJ ; Start 05/17/20 at 15:15; Stop 05/17/20 at 15:16; Status Cancel Midazolam HCl (Versed) 2 mg 1X ONCE IV ; Start 05/17/20 at 15:30; Stop 05/17/20 at 15:31; Status Cancel Allopurinol (Zyloprim) 300 mg DAILY PO Last administered on 05/18/20 08:30; Start 05/17/20 at 16:00 Amoxicillin/ Clavulanate Potassium (Augmentin 500/ 125mg) 1 tab BID PO Last administered on 05/18/20 08:31; Start 05/17/20 at 21:00 Ergocalciferol (Vitamin D2) 50,000 unit WEEKLY PO ; Start 05/24/20 at 09:00 Ferrous Sulfate (Feosol) 325 mg DAILY PO Last administered on 05/18/20 08:30; Start 05/17/20 at 16:00 Fluticasone Propionate (Flonase) 2 spray DAILY NS ; Start 05/17/20 at 16:00 Isosorbide Mononitrate (Imdur) 60 mg DAILY PO Last administered on 05/18/20 08:32; Start 05/17/20 at 16:00 Pantoprazole Sodium (Protonix) 40 mg DAILYAC PO Last administered on 05/18/20 08:32; Start 05/17/20 at 16:00 Tamsulosin HCl (Flomax) 0.4 mg HS PO Last administered on 05/17/20 21:32; Start 05/17/20 at 21:00 Tizanidine HCl (Zanaflex) 4 mg QHS PO Last administered on 05/17/20 21:32; Start 05/17/20 at 21:00 Ascorbic Acid (Vitamin C) 1,000 mg DAILY PO Last administered on 05/18/20 08:31; Start 05/17/20 at 16:00 Lubiprostone (Amitiza) 24 mcg BIDWMEALS PO Last administered on 05/18/20 08:30; Start 05/17/20 at 17:00 Multivitamins (Thera M Plus) 1 tab DAILY PO Last administered on 05/18/20 08:31; Start 05/17/20 at 16:00 Heparin Sodium (Porcine) (Heparin Sodium) 5,000 unit Q8HRS SQ Last administered on 05/18/20 06:58; Start 05/17/20 at 22:00 Acetaminophen/ Hydrocodone Bitart (Lortab 5/325) 1 tab PRN Q4HRS PRN PO PAIN Last administered on 7/17/20at 10:50; Start 05/18/20 at 09:15 Methylprednisolone Acetate (DEPO-Medrol 40MG VIAL) 40 mg 1X ONCE INJ ; Start 05/18/20 at 10:00; Stop 05/18/20 at 10:01; Status DC Bupivacaine HCl (Sensorcaine-Mpf 0.25%) 10 ml 1X ONCE IJ ; Start 05/18/20 at 10:00; Stop 05/18/20 at 10:01; Status DC Active Scripts Active Hydrocodone-Apap 5-325 (Hydrocodone Bit/Acetaminophen) 1 Tab Tablet 1 Tab PO PRN Q6HRS PRN 5 Days Amox Tr-K Clv 500-125 Mg Tab (Amoxicillin/Potassium Clav) 1 Each Tablet 1 Tab PO BID 10 Days Aspirin Ec (Aspirin) 81 Mg Tablet.dr 1 Tab PO DAILY Reported Flomax (Tamsulosin Hcl) 0.4 Mg Cap.er.24h 1 Cap PO HS Fluticasone Propionate Nasal [place] (Fluticasone Propionate) 16 Gm [place].susp 2 [place] NS DAILY Linzess (Linaclotide) 145 Mcg Capsule 145 Mcg PO 3X/WEEK Fexofenadine Hcl 180 Mg Tablet 1 Tab PO DAILY Vitamin C (Ascorbic Acid) 500 Mg Capsule.er 1,000 Mg PO DAILY One Daily For Men Tablet (Multivits-Minerals/Fa/Lycopene) 1 Each Tablet 1 Tab PO DAILY 30 Days Iron (Ferrous Sulfate) 325 Mg Tablet 65 Mg PO DAILY Allopurinol 300 Mg Tablet 1 Tab PO DAILY Vitamin D2 (Ergocalciferol (Vitamin D2)) 50,000 Unit Capsule 50,000 Unit PO WEEKLY Dose given on the Take on Pantoprazole Sodium (Pantoprazole Sodium) 40 Mg Tablet.dr 1 Tab PO DAILY Gave this morning take tomorrow morning Tizanidine Hcl 4 Mg Tablet 1 Tab PO QHS Gave dose last night Take tonight before bedtime Vascepa (Icosapent Ethyl) 1 Gm Capsule 1 Gm PO Not given on this admission Take as previoulsy instructed Atorvastatin Calcium 20 Mg Tablet 1 Tab PO HS Gave last night Take tonight Clopidogrel (Clopidogrel Bisulfate) 75 Mg Tablet 1 Tab PO DAILY Gave this morning take tomorrow morning Isosorbide Mononitrate Er (Isosorbide Mononitrate) 30 Mg Tab.er.24h 60 Mg PO DAILY Gave this morning take tomorrow morning Repaglinide 1 Mg Tablet 1 Mg PO Not given on this admission Continue as previously instructed Toprol Xl (Metoprolol Succinate) 50 Mg Tab.er.24h 1 Tab PO DAILY Gave this morning take tomorrow morning Vitals/I & O Vital Sign - Last 24 Hours 05/17/20 05/17/20 05/17/20 05/17/20 14:24 15:00 15:06 15:15 Pulse 75 78 80 Resp 24 B/P (MAP) 131/78 (95) 137/49 (78) Pulse Ox 95 93 94 95 O2 Delivery NonRebreather Mask Room Air 05/17/20 05/17/20 05/17/20 05/17/20 15:30 15:45 16:15 16:45 Pulse 80 74 77 77 B/P (MAP) 127/80 (96) 121/72 (88) 128/75 (92) 126/73 (90) Pulse Ox 94 92 92 92 05/17/20 05/17/20 05/17/20 05/17/20 17:35 17:45 18:39 19:47 Temp 97.5 97.5 Pulse 81 77 82 Resp 20 B/P (MAP) 127/80 142/67 (92) 139/73 (95) Pulse Ox 92 95 O2 Delivery Room Air Room Air 05/17/20 05/17/20 05/17/20 05/18/20 21:32 22:02 23:05 02:28 Temp 98.3 98.3 Pulse 67 Resp 18 18 26 18 B/P (MAP) 127/71 (89) Pulse Ox 95 95 92 92 O2 Delivery Room Air Room Air Room Air BiPAP/CPAP O2 Flow Rate 3.0 05/18/20 05/18/20 05/18/20 05/18/20 02:34 02:58 06:51 07:00 Temp 98.1 98.8 98.1 98.8 Pulse 82 73 Resp 20 18 18 16 B/P (MAP) 125/69 (87) 137/64 (88) Pulse Ox 100 100 100 93 O2 Delivery Room Air Room Air Room Air Room Air 05/18/20 05/18/20 05/18/20 05/18/20 08:00 08:31 08:32 11:21 Pulse 75 75 74 Resp 14 B/P (MAP) 126/68 (87) Pulse Ox 95 O2 Delivery Room Air Room Air Intake and Output 05/17/20 05/17/20 05/18/20 15:00 23:00 07:00 Intake Total 240 ml 340 ml 300 ml Output Total 250 ml 350 ml Balance 240 ml 90 ml -50 ml Justicifation of Admission Dx: Justifications for Admission: Justification of Admission Dx: Yes Angina: Symp at Rest JACE AGUSTIN MD May 18, 2020 14:18
[2020-05-18 14:23] VITALS: BP 114/76
[2020-05-18] MEDS ORDERED: DOCUSATE SODIUM 100 MG CAPSULE. PO PRN (17:30)
[2020-05-18] MEDS ORDERED: POLYETHYLENE GLYCOL 3350 17 GM PACKET. PO ONE (17:30)
[2020-05-18 20:05] VITALS: BP 135/74
[2020-05-18] MEDS: ATORVASTATIN CALCIUM 20 MG TABLET PO SCH (20:55)
[2020-05-18] MEDS: LACTOBACILLUS RHAMNOSUS GG 1 CAPSULE. PO SCH (20:55)
[2020-05-18] MEDS: TAMSULOSIN 0.4 MG CAP.ER.24H. PO SCH (20:55)
[2020-05-18] MEDS: tiZANidine 4 MG TABLET. PO SCH (20:55)
[2020-05-18 23:15] VITALS: BP 134/81
[2020-05-19] MEDS: HYDROcodone/APAP 5/325MG 1 TAB TABLET PO PRN ×5 (02:25→21:52)
[2020-05-19 04:05] VITALS: BP 121/77
[2020-05-19] MEDS: HEPARIN for SUB-Q USE 5,000 UNIT/ML VIAL. SQ SCH ×3 (06:31→21:58)
[2020-05-19 07:00] VITALS: BP 120/72
[2020-05-19] MEDS: LUBIPROSTONE 24 MCG CAPSULE PO SCH ×2 (08:34→18:04)
[2020-05-19] MEDS: AMOXICILLIN/K CLAV 500/125MG TABLET. PO SCH ×2 (08:35→21:52)
[2020-05-19] MEDS: ISOSORBIDE MONONITRATE ER 30 MG TAB.ER.24H PO SCH (08:35)
[2020-05-19] MEDS: METOPROLOL SUCC 24HR ER 50 MG TAB.ER.24H. PO SCH (08:35)
[2020-05-19] MEDS: LACTOBACILLUS RHAMNOSUS GG 1 CAPSULE. PO SCH ×2 (08:35→21:52)
[2020-05-19] MEDS: ASCORBIC ACID 500 MG TABLET PO SCH (08:35)
[2020-05-19] MEDS: MULTIVITAMIN with MINERAL TABLET. PO SCH (08:36)
[2020-05-19] MEDS: FERROUS SULFATE 325 MG TABLET. PO SCH (08:36)
[2020-05-19] MEDS: ASPIRIN ENTERIC COATED 81 MG TABLET.DR. PO SCH (08:36)
[2020-05-19] MEDS: CLOPIDOGREL BISULFATE 75 MG TABLET PO SCH (08:36)
[2020-05-19] MEDS: ALLOPURINOL 300 MG TABLET. PO SCH (08:36)
[2020-05-19] MEDS: PANTOPRAZOLE 40 MG TABLET.DR. PO SCH (08:36)
[2020-05-19] MEDS: INSULIN LISPRO 300 UNITS/3 ML VIAL. SQ SCH ×3 (08:45→18:09)
[2020-05-19] MEDS: FLUTICASONE 50MCG/NASAL SPRAY 16GM BOTTLE. NS SCH (08:45)
--- NOTE | 2020-05-19 10:32 | PDOC ---
PROGRESS NOTES Chief Complaint Chief Complaint 69 yo M w/ PMHx CAD s/p stents, DM2, GERD, HLD, HTN, chronic back pain, constipation recently hospitalized last week for falls and UTI. discharged on augmentin and discharged with home PT. had recommended rehab but patient refused and requested to go home instead. when he went home Patient reports he was ambulating into his house and began experiencing heaviness in his central chest. Associated with shortness of breath and diaphoresis. No nausea/vomiting or palpitations. Went inside of took nitro x2 and ASA, which did not significantly improved pain. Decided to come back to the hospital for evaluation of chest pain. Pain improved overnight, but the chest pain returned following ambulation to the bathroom. admitted for further work up. A/P Chest pain with Mild trop elevation; peak 0.35 secondary to CAD s/p Successful complex PCI of the RCA with implantation of a Shireen 4.0 x 23 mm drug-eluting stent; continue asa plavix and high dose statin hx of PCI/stent x2 in 2012 Chronic diastolic CHF CKD, baseline creatine 1.6; hold lasix, metformin and lisinopril Morbid obesity SUSANA with CPAP UTI currently on augmentin Fall - unable to walk, has intractable left lower back pain, h/o SI joint injection last admission . PT and PMR consulted. patient refusing placement wants to go home wit hPT BPH - cont meds Panniculitis - with prior balanitis, will use topical nystatin powder HTN - controlled DM2 - sliding scale patient will transfer to [place] today. no changes in meds. History of Present Illness History of Present [facility]. no overnight issues. Vitals Vitals Vital Signs Date Time Temp Pulse Resp B/P (MAP) Pulse Ox O2 Delivery O2 Flow Rate FiO2 05/19/20 08:35 80 05/19/20 07:50 Room Air 05/19/20 07:00 97.6 22 120/72 (88) 93 97.6 Physical Exam General: mild distress Heart: Regular rate Lungs: Clear Abdomen: Normal bowel sounds Labs LABS Laboratory Tests Test 05/18/20 11:16 05/18/20 16:03 05/18/20 20:56 05/19/20 07:37 Glucose (Fingerstick) 200 mg/dL (70-99) 192 mg/dL (70-99) 167 mg/dL (70-99) 162 mg/dL (70-99) Assessment and Plan Assessmemt and Plan Problems Medical Problems: (1) Elevated troponin I level Status: Acute (2) Substernal precordial chest pain Status: Acute Comment Review of Relevant I have reviewed the following items mj (where applicable) has been applied. Labs Laboratory Tests Test 05/17/20 10:45 05/17/20 11:42 05/17/20 14:08 05/17/20 16:42 Troponin I Quantitative 0.212 ng/mL (0.000-0.055) Glucose (Fingerstick) 195 mg/dL (70-99) 151 mg/dL (70-99) Activated Clotting Time 179 sec (92-181) Test 05/17/20 20:27 05/18/20 04:43 05/18/20 04:45 05/18/20 07:12 Glucose (Fingerstick) 175 mg/dL (70-99) 185 mg/dL (70-99) Sodium Level 139 mmol/L (136-145) Potassium Level 4.4 mmol/L (3.5-5.1) Chloride Level 106 mmol/L (98-107) Carbon Dioxide Level 21 mmol/L (21-32) Anion Gap 12 (6-14) Blood Urea Nitrogen 27 mg/dL (8-26) Creatinine 1.5 mg/dL (0.7-1.3) Estimated GFR (Cockcroft-Gault) 46.7 Glucose Level 196 mg/dL (70-99) Calcium Level 8.6 mg/dL (8.5-10.1) Triglycerides Level 140 mg/dL (0-150) Cholesterol Level 113 mg/dL (0-200) LDL Cholesterol, Calculated 48 mg/dL (0-100) VLDL Cholesterol, Calculated 28 mg/dL (0-40) Non-HDL Cholesterol Calculated 76 mg/dL (0-129) HDL Cholesterol 37 mg/dL (40-60) Cholesterol/HDL Ratio 3.1 White Blood Count 8.3 x10^3/uL (4.0-11.0) Red Blood Count 4.05 x10^6/uL (4.30-5.70) Hemoglobin 12.8 g/dL (13.0-17.5) Hematocrit 38.7 % (39.0-53.0) Mean Corpuscular Volume 96 fL (79-100) Mean Corpuscular Hemoglobin 32 pg (25-35) Mean Corpuscular Hemoglobin Concent 33 g/dL (31-37) Red Cell Distribution Width 15.4 % (11.5-14.5) Platelet Count 207 x10^3/uL (140-400) Neutrophils (%) (Auto) 67 % (31-73) Lymphocytes (%) (Auto) 21 % (24-48) Monocytes (%) (Auto) 9 % (0-9) Eosinophils (%) (Auto) 2 % (0-3) Basophils (%) (Auto) 1 % (0-3) Neutrophils # (Auto) 5.6 x10^3/uL (1.8-7.7) Lymphocytes # (Auto) 1.7 x10^3/uL (1.0-4.8) Monocytes # (Auto) 0.7 x10^3/uL (0.0-1.1) Eosinophils # (Auto) 0.2 x10^3/uL (0.0-0.7) Basophils # (Auto) 0.1 x10^3/uL (0.0-0.2) Test 05/18/20 11:16 05/18/20 16:03 05/18/20 20:56 05/19/20 07:37 Glucose (Fingerstick) 200 mg/dL (70-99) 192 mg/dL (70-99) 167 mg/dL (70-99) 162 mg/dL (70-99) Laboratory Tests Test 05/18/20 11:16 05/18/20 16:03 05/18/20 20:56 05/19/20 07:37 Glucose (Fingerstick) 200 mg/dL (70-99) 192 mg/dL (70-99) 167 mg/dL (70-99) 162 mg/dL (70-99) Medications Current Medications Nitroglycerin (Nitrostat) 0.4 mg 1X PRN SL CHEST PAIN Last administered on 05/16/20at 20:49; Start 05/16/20 at 20:45 Fentanyl Citrate (Fentanyl 2ml Vial) 50 mcg 1X ONCE IVP Last administered on 05/16/20at 21:47; Start 05/16/20 at 22:00; Stop 05/16/20 at 22:01; Status DC Fentanyl Citrate (Fentanyl 2ml Vial) 100 mcg STK-MED ONCE .ROUTE ; Start 05/16/20 at 21:45; Stop 05/16/20 at 21:45; Status DC Enoxaparin Sodium (Lovenox 40mg Syringe) 40 mg 1X ONCE SQ Last administered on 05/17/20at 00:16; Start 05/16/20 at 23:30; Stop 05/16/20 at 23:31; Status DC Aspirin (Aspirin Chewable) 324 mg 1X ONCE PO ; Start 05/16/20 at 23:30; Stop 05/16/20 at 23:31; Status DC Clopidogrel Bisulfate (Plavix) 300 mg 1X ONCE PO Last administered on 05/17/20at 00:17; Start 05/16/20 at 23:30; Stop 05/16/20 at 23:31; Status DC Ondansetron HCl (Zofran) 4 mg PRN Q8HRS PRN IV NAUSEA/VOMITING 1ST CHOICE; Start 05/16/20 at 23:15; Stop 05/17/20 at 23:14; Status DC Fentanyl Citrate (Fentanyl 2ml Vial) 50 mcg 1X ONCE IVP Last administered on 05/17/20at 00:16; Start 05/17/20 at 00:30; Stop 05/17/20 at 00:31; Status DC Nitroglycerin (Nitro-Bid Oint) 1 inch 1X ONCE TP Last administered on 05/17/20at 01:55; Start 05/17/20 at 00:30; Stop 05/17/20 at 00:31; Status DC Fentanyl Citrate (Fentanyl 2ml Vial) 50 mcg PRN Q2HR PRN IVP SEVERE PAIN 7-10 Last administered on 05/17/20at 09:41; Start 05/17/20 at 01:30; Stop 05/17/20 at 14:59; Status DC Insulin Human Lispro (HumaLOG) 0-7 UNITS TIDWMEALS SQ Last administered on 05/19/20at 08:45; Start 05/17/20 at 08:00 Dextrose (Dextrose 50%-Water Syringe) 12.5 gm PRN Q15MIN PRN IV SEE COMMENTS; Start 05/17/20 at 01:45 Aspirin (Ecotrin) 81 mg DAILY PO Last administered on 05/19/20at 08:36; Start 05/17/20 at 09:00 Atorvastatin Calcium (Lipitor) 20 mg HS PO Last administered on 05/18/20at 20:55; Start 05/17/20 at 21:00 Clopidogrel Bisulfate (Plavix) 75 mg DAILY PO Last administered on 05/19/20at 08:36; Start 05/17/20 at 09:00 Metoprolol Succinate (Toprol Xl) 50 mg DAILY PO Last administered on 05/19/20at 08:35; Start 05/17/20 at 09:00 Midazolam HCl (Versed) 2 mg STK-MED ONCE .ROUTE ; Start 05/17/20 at 12:55; Stop 05/17/20 at 12:55; Status DC Fentanyl Citrate (Fentanyl 2ml Vial) 100 mcg STK-MED ONCE .ROUTE ; Start 05/17/20 at 12:55; Stop 05/17/20 at 12:55; Status DC Lidocaine HCl (Xylocaine-Mpf 1% 2ml Vial) 2 ml STK-MED ONCE .ROUTE ; Start 05/17/20 at 12:57; Stop 05/17/20 at 12:58; Status DC Iodixanol (Visipaque 320) 100 ml STK-MED ONCE .ROUTE ; Start 05/17/20 at 12:57; Stop 05/17/20 at 12:58; Status DC Heparin Sodium/ Sodium Chloride 1,500 ml @ As Directed STK-MED ONCE .ROUTE ; Start 05/17/20 at 12:58; Stop 05/17/20 at 12:58; Status DC Verapamil HCl (Verapamil) 5 mg STK-MED ONCE .ROUTE ; Start 05/17/20 at 13:01; Stop 05/17/20 at 13:01; Status DC Heparin Sodium (Porcine) (Heparin Sodium) 10,000 unit STK-MED ONCE .ROUTE ; Start 05/17/20 at 13:01; Stop 05/17/20 at 13:01; Status DC Nitroglycerin (Nitroglycerin) 200 mcg STK-MED ONCE .ROUTE ; Start 05/17/20 at 13:01; Stop 05/17/20 at 13:01; Status DC Nitroglycerin (Nitroglycerin) 200 mcg 1X ONCE IART Last administered on 05/17/20at 13:45; Start 05/17/20 at 13:45; Stop 05/17/20 at 13:47; Status DC Verapamil HCl (Verapamil) 2.5 mg 1X ONCE IART Last administered on 05/17/20at 13:45; Start 05/17/20 at 13:45; Stop 05/17/20 at 13:47; Status DC Heparin Sodium (Porcine) (Heparin Sodium) 2,500 unit 1X ONCE IART Last administered on 05/17/20at 13:45; Start 05/17/20 at 13:45; Stop 05/17/20 at 13:47; Status DC Heparin Sodium/ Sodium Chloride (HEPARIN for ARTERIAL LINE FLUSH) 1,000 unit 1X ONCE IART Last administered on 05/17/20at 13:45; Start 05/17/20 at 13:45; Stop 05/17/20 at 13:47; Status DC Heparin Sodium/ Sodium Chloride (HEPARIN for ARTERIAL LINE FLUSH) 1,000 unit 1X ONCE IART Last administered on 05/17/20at 13:45; Start 05/17/20 at 13:45; Stop 05/17/20 at 13:47; Status DC Iodixanol (Visipaque 320) 100 ml 1X ONCE IART Last administered on 05/17/20at 13:45; Start 05/17/20 at 13:45; Stop 05/17/20 at 13:47; Status DC Lidocaine HCl (Xylocaine-Mpf 1% 2ml Vial) 2 ml 1X ONCE INJ Last administered on 05/17/20at 13:45; Start 05/17/20 at 13:45; Stop 05/17/20 at 13:47; Status DC Heparin Sodium (Porcine) (Heparin Sodium) 5,000 unit 1X ONCE IV Last administered on 05/17/20at 14:00; Start 05/17/20 at 14:00; Stop 05/17/20 at 14:01; Status DC Nitroglycerin (Nitroglycerin) 200 mcg STK-MED ONCE .ROUTE ; Start 05/17/20 at 14:01; Stop 05/17/20 at 14:01; Status DC Nitroglycerin (Nitroglycerin) 200 mcg 1X ONCE IART Last administered on 05/17/20at 14:15; Start 05/17/20 at 14:15; Stop 05/17/20 at 14:16; Status DC Nitroglycerin (Nitroglycerin) 200 mcg 1X ONCE IART Last administered on 05/17/20at 14:23; Start 05/17/20 at 14:30; Stop 05/17/20 at 14:31; Status DC Heparin Sodium (Porcine) (Heparin Sodium) 10,000 unit STK-MED ONCE .ROUTE ; Start 05/17/20 at 14:28; Stop 05/17/20 at 14:28; Status DC Clopidogrel Bisulfate (Plavix) 300 mg 1X ONCE PO Last administered on 0at 15:05; Start 05/17/20 at 14:30; Stop 05/17/20 at 14:32; Status DC Heparin Sodium (Porcine) (Heparin Sodium) 3,000 unit 1X ONCE IV Last administered on 05/17/20at 14:30; Start 05/17/20 at 14:30; Stop 05/17/20 at 14:32; Status DC Morphine Sulfate (Morphine Sulfate) 2 mg PRN Q4HRS PRN IV PAIN Last administered on 05/18/20at 06:51; Start 05/17/20 at 15:00 Heparin Sodium/ Sodium Chloride (HEPARIN for ARTERIAL LINE FLUSH) 1,000 unit 1X ONCE IART ; Start 05/17/20 at 15:15; Stop 05/17/20 at 15:16; Status Cancel Heparin Sodium/ Sodium Chloride (HEPARIN for ARTERIAL LINE FLUSH) 1,000 unit 1X ONCE IART ; Start 05/17/20 at 15:15; Stop 05/17/20 at 15:16; Status Cancel Midazolam HCl (Versed) 2 mg 1X ONCE IV Last administered on 05/17/20at 15:15; Start 05/17/20 at 15:15; Stop 05/17/20 at 15:48; Status DC Fentanyl Citrate (Fentanyl 2ml Vial) 100 mcg 1X ONCE IV ; Start 05/17/20 at 15:15; Stop 05/17/20 at 15:16; Status Cancel Lidocaine HCl (Lidocaine 1% 20ml Vial) 20 ml 1X ONCE INJ ; Start 05/17/20 at 15:15; Stop 05/17/20 at 15:16; Status Cancel Midazolam HCl (Versed) 2 mg 1X ONCE IV ; Start 05/17/20 at 15:30; Stop 05/17/20 at 15:31; Status Cancel Allopurinol (Zyloprim) 300 mg DAILY PO Last administered on 05/19/20at 08:36; Start 05/17/20 at 16:00 Amoxicillin/ Clavulanate Potassium (Augmentin 500/ 125mg) 1 tab BID PO Last administered on 05/19/20 08:35; Start 05/17/20 at 21:00 Ergocalciferol (Vitamin D2) 50,000 unit WEEKLY PO ; Start 05/24/20 at 09:00 Ferrous Sulfate (Feosol) 325 mg DAILY PO Last administered on 05/19/20 08:36; Start 05/17/20 at 16:00 Fluticasone Propionate (Flonase) 2 spray DAILY NS ; Start 05/17/20 at 16:00 Isosorbide Mononitrate (Imdur) 60 mg DAILY PO Last administered on 05/19/20 08:35; Start 05/17/20 at 16:00 Pantoprazole Sodium (Protonix) 40 mg DAILYAC PO Last administered on 05/19/20 08:36; Start 05/17/20 at 16:00 Tamsulosin HCl (Flomax) 0.4 mg HS PO Last administered on 05/18/20at 20:55; Start 05/17/20 at 21:00 Tizanidine HCl (Zanaflex) 4 mg QHS PO Last administered on 05/18/20 20:55; Start 05/17/20 at 21:00 Ascorbic Acid (Vitamin C) 1,000 mg DAILY PO Last administered on 05/19/20 08:35; Start 05/17/20 at 16:00 Lubiprostone (Amitiza) 24 mcg BIDWMEALS PO Last administered on 05/19/20 08:34; Start 05/17/20 at 17:00 Multivitamins (Thera M Plus) 1 tab DAILY PO Last administered on 05/19/20 08:36; Start 05/17/20 at 16:00 Heparin Sodium (Porcine) (Heparin Sodium) 5,000 unit Q8HRS SQ Last administered on 05/19/20 06:31; Start 05/17/20 at 22:00 Acetaminophen/ Hydrocodone Bitart (Lortab 5/325) 1 tab PRN Q4HRS PRN PO PAIN Last administered on 05/19/20 08:35; Start 05/18/20 at 09:15 Methylprednisolone Acetate (DEPO-Medrol 40MG VIAL) 40 mg 1X ONCE INJ ; Start 05/18/20 at 10:00; Stop 05/18/20 at 10:01; Status DC Bupivacaine HCl (Sensorcaine-Mpf 0.25%) 10 ml 1X ONCE IJ ; Start 05/18/20 at 10:00; Stop 05/18/20 at 10:01; Status DC Lactobacillus Rhamnosus (Culturelle) 1 cap BID PO Last administered on 05/19/20at 08:35; Start 05/18/20 at 21:00 Polyethylene Glycol (miraLAX PACKET) 17 gm 1X ONCE PO Last administered on 05/18/20at 17:50; Start 05/18/20 at 17:30; Stop 05/18/20 at 17:31; Status DC Docusate Sodium (Colace) 100 mg PRN DAILY PRN PO HARD STOOLS Last administered on 05/18/20at 17:50; Start 05/18/20 at 17:30 Active Scripts Active Hydrocodone-Apap 5-325 (Hydrocodone Bit/Acetaminophen) 1 Tab Tablet 1 Tab PO PRN Q6HRS PRN 5 Days Amox Tr-K Clv 500-125 Mg Tab (Amoxicillin/Potassium Clav) 1 Each Tablet 1 Tab PO BID 10 Days Aspirin Ec (Aspirin) 81 Mg Tablet.dr 1 Tab PO DAILY Reported Flomax (Tamsulosin Hcl) 0.4 Mg Cap.er.24h 1 Cap PO HS Fluticasone Propionate Nasal [place] (Fluticasone Propionate) 16 Gm [place].susp 2 [place] NS DAILY Linzess (Linaclotide) 145 Mcg Capsule 145 Mcg PO 3X/WEEK Fexofenadine Hcl 180 Mg Tablet 1 Tab PO DAILY Vitamin C (Ascorbic Acid) 500 Mg Capsule.er 1,000 Mg PO DAILY One Daily For Men Tablet (Multivits-Minerals/Fa/Lycopene) 1 Each Tablet 1 Tab PO DAILY 30 Days Iron (Ferrous Sulfate) 325 Mg Tablet 65 Mg PO DAILY Allopurinol 300 Mg Tablet 1 Tab PO DAILY Vitamin D2 (Ergocalciferol (Vitamin D2)) 50,000 Unit Capsule 50,000 Unit PO WEEKLY Dose given on the Take on Pantoprazole Sodium (Pantoprazole Sodium) 40 Mg Tablet.dr 1 Tab PO DAILY Gave this morning take tomorrow morning Tizanidine Hcl 4 Mg Tablet 1 Tab PO QHS Gave dose last night Take tonight before bedtime Vascepa (Icosapent Ethyl) 1 Gm Capsule 1 Gm PO Not given on this admission Take as previoulsy instructed Atorvastatin Calcium 20 Mg Tablet 1 Tab PO HS Gave last night Take tonight Clopidogrel (Clopidogrel Bisulfate) 75 Mg Tablet 1 Tab PO DAILY Gave this morning take tomorrow morning Isosorbide Mononitrate Er (Isosorbide Mononitrate) 30 Mg Tab.er.24h 60 Mg PO DAILY Gave this morning take tomorrow morning Repaglinide 1 Mg Tablet 1 Mg PO Not given on this admission Continue as previously instructed Toprol Xl (Metoprolol Succinate) 50 Mg Tab.er.24h 1 Tab PO DAILY Gave this morning take tomorrow morning Vitals/I & O Vital Sign - Last 24 Hours 05/18/20 05/18/20 05/18/20 05/18/20 11:21 14:23 19:00 20:00 Temp 98.0 98.0 Pulse 74 75 Resp 14 20 B/P (MAP) 126/68 (87) 114/76 (89) Pulse Ox 95 92 O2 Delivery Room Air Room Air Room Air Room Air 05/18/20 05/18/20 05/18/20 05/19/20 20:05 20:56 23:15 02:25 Temp 97.9 97.6 97.9 97.6 Pulse 74 74 Resp 21 16 20 16 B/P (MAP) 135/74 (94) 134/81 (98) Pulse Ox 91 94 O2 Delivery Room Air Room Air Room Air Room Air 05/19/20 05/19/20 05/19/20 05/19/20 03:00 04:05 07:00 07:50 Temp 97.9 97.6 97.9 97.6 Pulse 63 68 66 Resp 22 22 B/P (MAP) 121/77 (92) 120/72 (88) Pulse Ox 93 93 O2 Delivery BiPAP/CPAP BiPAP/CPAP Room Air 05/19/20 05/19/20 08:35 08:35 Pulse 80 80 Intake and Output 05/18/20 05/18/20 05/19/20 15:00 23:00 07:00 Intake Total 240 ml 300 ml 200 ml Output Total 100 ml 175 ml 300 ml Balance 140 ml 125 ml -100 ml Justicifation of Admission Dx: Justifications for Admission: Justification of Admission Dx: Yes Angina: Symp at Rest KATH CABALLERO MD May 19, 2020 10:32
[2020-05-19 11:07] VITALS: BP 132/81
--- NOTE | 2020-05-19 11:42 | PDOC ---
PROGRESS NOTES Subjective Subjective Patient seen and examined Objective Objective Vital Signs Date Time Temp Pulse Resp B/P (MAP) Pulse Ox O2 Delivery O2 Flow Rate FiO2 05/19/20 11:07 80 132/81 (98) 95 05/19/20 07:50 Room Air 05/19/20 07:00 97.6 22 97.6 05/17/20 21:32 3.0 Intake and Output 05/19/20 07:00 Intake Total 740 ml Output Total 575 ml Balance 165 ml Intake Oral 740 ml Output Urine Total 575 ml # Voids 1 # Bowel Movements 2 Physical Exam Abdomen: Normal bowel sounds Heart: Regular rate General: No acute distress Lungs: Clear to auscultation Assessment Assessment Problems Medical Problems: (1) Elevated troponin I level Status: Acute (2) Substernal precordial chest pain Status: Acute Coronary artery disease. Status post stenting to the right coronary two days ago. Discharge held yesterday due to episodes of chest pressure. No EKG changes. Monitored overnight. No significant arrhythmias. He is feeling better today with chest pain significantly decreased. Believe it is appropriate to discharge the patient today with medications as above. Will arrange office follow-up. Chronic diastolic CHF; appears compensated Hypertension; controlled Hyperlipiemia; statin Diabetes, II; as pe PCP Morbid obesity. SUSANA with CPAP Comment Review of Relevant I have reviewed the following items jm (where applicable) has been applied. Labs Laboratory Tests Test 05/17/20 11:42 05/17/20 14:08 05/17/20 16:42 05/17/20 20:27 Glucose (Fingerstick) 195 mg/dL (70-99) 151 mg/dL (70-99) 175 mg/dL (70-99) Activated Clotting Time 179 sec (92-181) Test 05/18/20 04:43 05/18/20 04:45 05/18/20 07:12 05/18/20 11:16 Sodium Level 139 mmol/L (136-145) Potassium Level 4.4 mmol/L (3.5-5.1) Chloride Level 106 mmol/L (98-107) Carbon Dioxide Level 21 mmol/L (21-32) Anion Gap 12 (6-14) Blood Urea Nitrogen 27 mg/dL (8-26) Creatinine 1.5 mg/dL (0.7-1.3) Estimated GFR (Cockcroft-Gault) 46.7 Glucose Level 196 mg/dL (70-99) Calcium Level 8.6 mg/dL (8.5-10.1) Triglycerides Level 140 mg/dL (0-150) Cholesterol Level 113 mg/dL (0-200) LDL Cholesterol, Calculated 48 mg/dL (0-100) VLDL Cholesterol, Calculated 28 mg/dL (0-40) Non-HDL Cholesterol Calculated 76 mg/dL (0-129) HDL Cholesterol 37 mg/dL (40-60) Cholesterol/HDL Ratio 3.1 White Blood Count 8.3 x10^3/uL (4.0-11.0) Red Blood Count 4.05 x10^6/uL (4.30-5.70) Hemoglobin 12.8 g/dL (13.0-17.5) Hematocrit 38.7 % (39.0-53.0) Mean Corpuscular Volume 96 fL (79-100) Mean Corpuscular Hemoglobin 32 pg (25-35) Mean Corpuscular Hemoglobin Concent 33 g/dL (31-37) Red Cell Distribution Width 15.4 % (11.5-14.5) Platelet Count 207 x10^3/uL (140-400) Neutrophils (%) (Auto) 67 % (31-73) Lymphocytes (%) (Auto) 21 % (24-48) Monocytes (%) (Auto) 9 % (0-9) Eosinophils (%) (Auto) 2 % (0-3) Basophils (%) (Auto) 1 % (0-3) Neutrophils # (Auto) 5.6 x10^3/uL (1.8-7.7) Lymphocytes # (Auto) 1.7 x10^3/uL (1.0-4.8) Monocytes # (Auto) 0.7 x10^3/uL (0.0-1.1) Eosinophils # (Auto) 0.2 x10^3/uL (0.0-0.7) Basophils # (Auto) 0.1 x10^3/uL (0.0-0.2) Glucose (Fingerstick) 185 mg/dL (70-99) 200 mg/dL (70-99) Test 05/18/20 16:03 05/18/20 20:56 05/19/20 07:37 Glucose (Fingerstick) 192 mg/dL (70-99) 167 mg/dL (70-99) 162 mg/dL (70-99) Laboratory Tests Test 05/18/20 16:03 05/18/20 20:56 05/19/20 07:37 Glucose (Fingerstick) 192 mg/dL (70-99) 167 mg/dL (70-99) 162 mg/dL (70-99) Medications Current Medications Nitroglycerin (Nitrostat) 0.4 mg 1X PRN SL CHEST PAIN Last administered on 05/16/20at 20:49; Start 05/16/20 at 20:45 Fentanyl Citrate (Fentanyl 2ml Vial) 50 mcg 1X ONCE IVP Last administered on 05/16/20at 21:47; Start 05/16/20 at 22:00; Stop 05/16/20 at 22:01; Status DC Fentanyl Citrate (Fentanyl 2ml Vial) 100 mcg STK-MED ONCE .ROUTE ; Start 05/16/20 at 21:45; Stop 05/16/20 at 21:45; Status DC Enoxaparin Sodium (Lovenox 40mg Syringe) 40 mg 1X ONCE SQ Last administered on 05/17/20at 00:16; Start 05/16/20 at 23:30; Stop 05/16/20 at 23:31; Status DC Aspirin (Aspirin Chewable) 324 mg 1X ONCE PO ; Start 05/16/20 at 23:30; Stop 05/16/20 at 23:31; Status DC Clopidogrel Bisulfate (Plavix) 300 mg 1X ONCE PO Last administered on 05/17/20at 00:17; Start 05/16/20 at 23:30; Stop 05/16/20 at 23:31; Status DC Ondansetron HCl (Zofran) 4 mg PRN Q8HRS PRN IV NAUSEA/VOMITING 1ST CHOICE; Start 05/16/20 at 23:15; Stop 05/17/20 at 23:14; Status DC Fentanyl Citrate (Fentanyl 2ml Vial) 50 mcg 1X ONCE IVP Last administered on 05/17/20at 00:16; Start 05/17/20 at 00:30; Stop 05/17/20 at 00:31; Status DC Nitroglycerin (Nitro-Bid Oint) 1 inch 1X ONCE TP Last administered on 05/17/20at 01:55; Start 05/17/20 at 00:30; Stop 05/17/20 at 00:31; Status DC Fentanyl Citrate (Fentanyl 2ml Vial) 50 mcg PRN Q2HR PRN IVP SEVERE PAIN 7-10 Last administered on 05/17/20at 09:41; Start 05/17/20 at 01:30; Stop 05/17/20 at 14:59; Status DC Insulin Human Lispro (HumaLOG) 0-7 UNITS TIDWMEALS SQ Last administered on 05/19/20at 08:45; Start 05/17/20 at 08:00 Dextrose (Dextrose 50%-Water Syringe) 12.5 gm PRN Q15MIN PRN IV SEE COMMENTS; Start 05/17/20 at 01:45 Aspirin (Ecotrin) 81 mg DAILY PO Last administered on 05/19/20at 08:36; Start 05/17/20 at 09:00 Atorvastatin Calcium (Lipitor) 20 mg HS PO Last administered on 05/18/20at 20:55; Start 05/17/20 at 21:00 Clopidogrel Bisulfate (Plavix) 75 mg DAILY PO Last administered on 05/19/20at 08:36; Start 05/17/20 at 09:00 Metoprolol Succinate (Toprol Xl) 50 mg DAILY PO Last administered on 05/19/20at 08:35; Start 05/17/20 at 09:00 Midazolam HCl (Versed) 2 mg STK-MED ONCE .ROUTE ; Start 05/17/20 at 12:55; Stop 05/17/20 at 12:55; Status DC Fentanyl Citrate (Fentanyl 2ml Vial) 100 mcg STK-MED ONCE .ROUTE ; Start 05/17/20 at 12:55; Stop 05/17/20 at 12:55; Status DC Lidocaine HCl (Xylocaine-Mpf 1% 2ml Vial) 2 ml STK-MED ONCE .ROUTE ; Start 05/17/20 at 12:57; Stop 05/17/20 at 12:58; Status DC Iodixanol (Visipaque 320) 100 ml STK-MED ONCE .ROUTE ; Start 05/17/20 at 12:57; Stop 05/17/20 at 12:58; Status DC Heparin Sodium/ Sodium Chloride 1,500 ml @ As Directed STK-MED ONCE .ROUTE ; Start 05/17/20 at 12:58; Stop 05/17/20 at 12:58; Status DC Verapamil HCl (Verapamil) 5 mg STK-MED ONCE .ROUTE ; Start 05/17/20 at 13:01; Stop 05/17/20 at 13:01; Status DC Heparin Sodium (Porcine) (Heparin Sodium) 10,000 unit STK-MED ONCE .ROUTE ; Start 05/17/20 at 13:01; Stop 05/17/20 at 13:01; Status DC Nitroglycerin (Nitroglycerin) 200 mcg STK-MED ONCE .ROUTE ; Start 05/17/20 at 13:01; Stop 05/17/20 at 13:01; Status DC Nitroglycerin (Nitroglycerin) 200 mcg 1X ONCE IART Last administered on 05/17/20at 13:45; Start 05/17/20 at 13:45; Stop 05/17/20 at 13:47; Status DC Verapamil HCl (Verapamil) 2.5 mg 1X ONCE IART Last administered on 05/17/20at 13:45; Start 05/17/20 at 13:45; Stop 05/17/20 at 13:47; Status DC Heparin Sodium (Porcine) (Heparin Sodium) 2,500 unit 1X ONCE IART Last administered on 05/17/20at 13:45; Start 05/17/20 at 13:45; Stop 05/17/20 at 13:47; Status DC Heparin Sodium/ Sodium Chloride (HEPARIN for ARTERIAL LINE FLUSH) 1,000 unit 1X ONCE IART Last administered on 05/17/20at 13:45; Start 05/17/20 at 13:45; Stop 05/17/20 at 13:47; Status DC Heparin Sodium/ Sodium Chloride (HEPARIN for ARTERIAL LINE FLUSH) 1,000 unit 1X ONCE IART Last administered on 05/17/20at 13:45; Start 05/17/20 at 13:45; Stop 05/17/20 at 13:47; Status DC Iodixanol (Visipaque 320) 100 ml 1X ONCE IART Last administered on 05/17/20at 13:45; Start 05/17/20 at 13:45; Stop 05/17/20 at 13:47; Status DC Lidocaine HCl (Xylocaine-Mpf 1% 2ml Vial) 2 ml 1X ONCE INJ Last administered on 05/17/20at 13:45; Start 05/17/20 at 13:45; Stop 05/17/20 at 13:47; Status DC Heparin Sodium (Porcine) (Heparin Sodium) 5,000 unit 1X ONCE IV Last administered on 05/17/20at 14:00; Start 05/17/20 at 14:00; Stop 05/17/20 at 14:01; Status DC Nitroglycerin (Nitroglycerin) 200 mcg STK-MED ONCE .ROUTE ; Start 05/17/20 at 14:01; Stop 05/17/20 at 14:01; Status DC Nitroglycerin (Nitroglycerin) 200 mcg 1X ONCE IART Last administered on 05/17/20at 14:15; Start 05/17/20 at 14:15; Stop 05/17/20 at 14:16; Status DC Nitroglycerin (Nitroglycerin) 200 mcg 1X ONCE IART Last administered on 05/17/20at 14:23; Start 05/17/20 at 14:30; Stop 05/17/20 at 14:31; Status DC Heparin Sodium (Porcine) (Heparin Sodium) 10,000 unit STK-MED ONCE .ROUTE ; Start 05/17/20 at 14:28; Stop 05/17/20 at 14:28; Status DC Clopidogrel Bisulfate (Plavix) 300 mg 1X ONCE PO Last administered on 05/17/20a t 15:05; Start 05/17/20 at 14:30; Stop 05/17/20 at 14:32; Status DC Heparin Sodium (Porcine) (Heparin Sodium) 3,000 unit 1X ONCE IV Last administered on 05/17/20at 14:30; Start 05/17/20 at 14:30; Stop 05/17/20 at 14:32; Status DC Morphine Sulfate (Morphine Sulfate) 2 mg PRN Q4HRS PRN IV PAIN Last administered on 05/18/20at 06:51; Start 05/17/20 at 15:00 Heparin Sodium/ Sodium Chloride (HEPARIN for ARTERIAL LINE FLUSH) 1,000 unit 1X ONCE IART ; Start 05/17/20 at 15:15; Stop 05/17/20 at 15:16; Status Cancel Heparin Sodium/ Sodium Chloride (HEPARIN for ARTERIAL LINE FLUSH) 1,000 unit 1X ONCE IART ; Start 05/17/20 at 15:15; Stop 05/17/20 at 15:16; Status Cancel Midazolam HCl (Versed) 2 mg 1X ONCE IV Last administered on 05/17/20at 15:15; Start 05/17/20 at 15:15; Stop 05/17/20 at 15:48; Status DC Fentanyl Citrate (Fentanyl 2ml Vial) 100 mcg 1X ONCE IV ; Start 05/17/20 at 15:15; Stop 05/17/20 at 15:16; Status Cancel Lidocaine HCl (Lidocaine 1% 20ml Vial) 20 ml 1X ONCE INJ ; Start 05/17/20 at 15:15; Stop 05/17/20 at 15:16; Status Cancel Midazolam HCl (Versed) 2 mg 1X ONCE IV ; Start 05/17/20 at 15:30; Stop 05/17/20 at 15:31; Status Cancel Allopurinol (Zyloprim) 300 mg DAILY PO Last administered on 05/19/20at 08:36; Start 05/17/20 at 16:00 Amoxicillin/ Clavulanate Potassium (Augmentin 500/ 125mg) 1 tab BID PO Last administered on 05/19/20at 08:35; Start 05/17/20 at 21:00 Ergocalciferol (Vitamin D2) 50,000 unit WEEKLY PO ; Start 05/24/20 at 09:00 Ferrous Sulfate (Feosol) 325 mg DAILY PO Last administered on 05/19/20at 08:36; Start 05/17/20 at 16:00 Fluticasone Propionate (Flonase) 2 spray DAILY NS ; Start 05/17/20 at 16:00 Isosorbide Mononitrate (Imdur) 60 mg DAILY PO Last administered on 05/19/20at 08:35; Start 05/17/20 at 16:00 Pantoprazole Sodium (Protonix) 40 mg DAILYAC PO Last administered on 05/19/20at 08:36; Start 05/17/20 at 16:00 Tamsulosin HCl (Flomax) 0.4 mg HS PO Last administered on 05/18/20at 20:55; Start 05/17/20 at 21:00 Tizanidine HCl (Zanaflex) 4 mg QHS PO Last administered on 05/18/20at 20:55; Start 05/17/20 at 21:00 Ascorbic Acid (Vitamin C) 1,000 mg DAILY PO Last administered on 05/19/20at 08:35; Start 05/17/20 at 16:00 Lubiprostone (Amitiza) 24 mcg BIDWMEALS PO Last administered on 05/19/20 08:34; Start 05/17/20 at 17:00 Multivitamins (Thera M Plus) 1 tab DAILY PO Last administered on 05/19/20at 08:36; Start 05/17/20 at 16:00 Heparin Sodium (Porcine) (Heparin Sodium) 5,000 unit Q8HRS SQ Last administered on 05/19/20at 06:31; Start 05/17/20 at 22:00 Acetaminophen/ Hydrocodone Bitart (Lortab 5/325) 1 tab PRN Q4HRS PRN PO PAIN Last administered on 05/19/20 08:35; Start 05/18/20 at 09:15 Methylprednisolone Acetate (DEPO-Medrol 40MG VIAL) 40 mg 1X ONCE INJ ; Start 05/18/20 at 10:00; Stop 05/18/20 at 10:01; Status DC Bupivacaine HCl (Sensorcaine-Mpf 0.25%) 10 ml 1X ONCE IJ ; Start 05/18/20 at 10:00; Stop 05/18/20 at 10:01; Status DC Lactobacillus Rhamnosus (Culturelle) 1 cap BID PO Last administered on 05/19/20at 08:35; Start 05/18/20 at 21:00 Polyethylene Glycol (miraLAX PACKET) 17 gm 1X ONCE PO Last administered on 05/18/20at 17:50; Start 05/18/20 at 17:30; Stop 05/18/20 at 17:31; Status DC Docusate Sodium (Colace) 100 mg PRN DAILY PRN PO HARD STOOLS Last administered on 05/18/20at 17:50; Start 05/18/20 at 17:30 Active Scripts Active Hydrocodone-Apap 5-325 (Hydrocodone Bit/Acetaminophen) 1 Tab Tablet 1 Tab PO PRN Q6HRS PRN 5 Days Amox Tr-K Clv 500-125 Mg Tab (Amoxicillin/Potassium Clav) 1 Each Tablet 1 Tab PO BID 10 Days Aspirin Ec (Aspirin) 81 Mg Tablet.dr 1 Tab PO DAILY Reported Flomax (Tamsulosin Hcl) 0.4 Mg Cap.er.24h 1 Cap PO HS Fluticasone Propionate Nasal [place] (Fluticasone Propionate) 16 Gm [place].susp 2 [place] NS DAILY Linzess (Linaclotide) 145 Mcg Capsule 145 Mcg PO 3X/WEEK Fexofenadine Hcl 180 Mg Tablet 1 Tab PO DAILY Vitamin C (Ascorbic Acid) 500 Mg Capsule.er 1,000 Mg PO DAILY One Daily For Men Tablet (Multivits-Minerals/Fa/Lycopene) 1 Each Tablet 1 Tab PO DAILY 30 Days Iron (Ferrous Sulfate) 325 Mg Tablet 65 Mg PO DAILY Allopurinol 300 Mg Tablet 1 Tab PO DAILY Vitamin D2 (Ergocalciferol (Vitamin D2)) 50,000 Unit Capsule 50,000 Unit PO WEEKLY Dose given on the Take on Pantoprazole Sodium (Pantoprazole Sodium) 40 Mg Tablet.dr 1 Tab PO DAILY Gave this morning take tomorrow morning Tizanidine Hcl 4 Mg Tablet 1 Tab PO QHS Gave dose last night Take tonight before bedtime Vascepa (Icosapent Ethyl) 1 Gm Capsule 1 Gm PO Not given on this admission Take as previoulsy instructed Atorvastatin Calcium 20 Mg Tablet 1 Tab PO HS Gave last night Take tonight Clopidogrel (Clopidogrel Bisulfate) 75 Mg Tablet 1 Tab PO DAILY Gave this morning take tomorrow morning Isosorbide Mononitrate Er (Isosorbide Mononitrate) 30 Mg Tab.er.24h 60 Mg PO DAILY Gave this morning take tomorrow morning Repaglinide 1 Mg Tablet 1 Mg PO Not given on this admission Continue as previously instructed Toprol Xl (Metoprolol Succinate) 50 Mg Tab.er.24h 1 Tab PO DAILY Gave this morning take tomorrow morning Vitals/I & O Vital Sign - Last 24 Hours 05/18/20 05/18/20 05/18/20 05/18/20 14:23 19:00 20:00 20:05 Temp 98.0 97.9 98.0 97.9 Pulse 75 74 Resp 20 21 B/P (MAP) 114/76 (89) 135/74 (94) Pulse Ox 92 91 O2 Delivery Room Air Room Air Room Air Room Air 05/18/20 05/18/20 05/19/20 05/19/20 20:56 23:15 02:25 03:00 Temp 97.6 97.6 Pulse 74 63 Resp 16 20 16 B/P (MAP) 134/81 (98) Pulse Ox 94 O2 Delivery Room Air Room Air Room Air 7/05/19/20 05/19/20 05/19/20 04:05 07:00 07:50 08:35 Temp 97.9 97.6 97.9 97.6 Pulse 68 66 80 Resp 22 22 B/P (MAP) 121/77 (92) 120/72 (88) Pulse Ox 93 93 O2 Delivery BiPAP/CPAP BiPAP/CPAP Room Air 05/19/20 05/19/20 08:35 11:07 Pulse 80 80 B/P (MAP) 132/81 (98) Pulse Ox 95 Intake and Output 05/18/20 05/18/20 05/19/20 15:00 23:00 07:00 Intake Total 240 ml 300 ml 200 ml Output Total 100 ml 175 ml 300 ml Balance 140 ml 125 ml -100 ml Justicifation of Admission Dx: Justifications for Admission: Justification of Admission Dx: Yes Angina: [facility] JACE AGUSTIN MD May 19, 2020 11:42
[2020-05-19] MEDS ORDERED: ISOSORBIDE MONONITRATE ER 30 MG TAB.ER.24H PO ONE (12:15)
[2020-05-19] MEDS: ALPRAZolam 0.5 MG TABLET PO PRN (12:51)
[2020-05-19 15:00] VITALS: BP 108/72
--- NOTE | 2020-05-19 17:47 | NUR ---
Nursing: Approximately 10:50-11:30 After working with therapy today patient became SOA and reported chest pain. oxygen high 70's on room air. 90 on 2.5 liter NC with rest. I Called and spoke with Dr. Arnett and Dr. Koenig. Both agreed ok for patient to go. Patient still SOA and reporting pain. I called and spoke with Dr. Arnett again which then came to the floor to see and assess the patient. discharge order cancelled. New orders received. 1700: Patient requiring 5L NC to maintain 90% oxygen. Called physician data integration developer Dr. Frank. Orders received. Will call physician when labs and xray results are back. Patient stable, alert and oriented.
[2020-05-19 18:00] LABS: BASE EXCESS ABG -2 mmol/L (-3-3); HCO3 ABG 20 mmol/L (21-28); PCO2 ABG 29 mmHg (35-46); PO2 ABG 63 mmHg (65-108); SAT O2 ABG 91 % (92-99)
--- NOTE | 2020-05-19 18:33 | RAD ---
PORTABLE CHEST 1V 05/19/2020 5:28 PM INDICATION: Shortness of air COMPARISON: 05/16/2020 TECHNIQUE: Portable frontal view of the chest is provided. FINDINGS: The cardiomediastinal silhouette is within normal limits. Mild pulmonary vascular congestion, progressed. Bilateral hilar prominence most favors vascular prominence rather than lymphadenopathy. Findings are stable. No significant pleural effusions or pneumothorax. Anterior cervical discectomy and fusion hardware is partially profiled at 3 contiguous lower cervical levels. No suspicious osseous abnormality. IMPRESSION: Interval progression of mild pulmonary vascular congestion as may be seen with congestive heart failure. Interstitial pneumonitis may have similar appearance. Electronically signed by: Aleah Moon MD (05/19/2020 6:30 PM) [facility]
[2020-05-19 19:00] VITALS: BP 100/59
[2020-05-19 20:05] LABS: CALCIUM 8.6 mg/dL (8.5-10.1); CREATININE 1.6 mg/dL (0.7-1.3); GFR 43.3; POTASSIUM 4.3 mmol/L (3.5-5.1)
[2020-05-19] MEDS: ATORVASTATIN CALCIUM 20 MG TABLET PO SCH (21:52)
[2020-05-19] MEDS: tiZANidine 4 MG TABLET. PO SCH (21:52)
[2020-05-19] MEDS: TAMSULOSIN 0.4 MG CAP.ER.24H. PO SCH (21:52)
[2020-05-19 23:00] VITALS: BP 112/72
[2020-05-20] MEDS: ALPRAZolam 0.5 MG TABLET PO PRN ×2 (02:41→21:06)
[2020-05-20 03:00] VITALS: BP 146/81
[2020-05-20] MEDS: HEPARIN for SUB-Q USE 5,000 UNIT/ML VIAL. SQ SCH ×3 (06:35→21:15)
[2020-05-20 07:30] VITALS: BP 125/69
--- NOTE | 2020-05-20 08:19 | RAD ---
PORTABLE CHEST 1V 05/20/2020 5:00 AM INDICATION: Vascular congestion, shortness of air COMPARISON: None available TECHNIQUE: Portable frontal view of the chest is provided. FINDINGS: The cardiomediastinal silhouette is within normal limits. Lungs are clear. There are no significant pleural effusions. There is no pulmonary vascular congestion. No pneumothorax. Improved aeration of lungs compared to prior examination. No suspicious osseous abnormality. IMPRESSION: Improved pulmonary vascular congestion. Electronically signed by: Aleah Moon MD (05/20/2020 8:16 AM) [facility]
[2020-05-20] MEDS: ASCORBIC ACID 500 MG TABLET PO SCH (08:53)
[2020-05-20] MEDS: PANTOPRAZOLE 40 MG TABLET.DR. PO SCH (08:53)
[2020-05-20] MEDS: LACTOBACILLUS RHAMNOSUS GG 1 CAPSULE. PO SCH ×2 (08:53→21:06)
[2020-05-20] MEDS: CLOPIDOGREL BISULFATE 75 MG TABLET PO SCH (08:53)
[2020-05-20] MEDS: AMOXICILLIN/K CLAV 500/125MG TABLET. PO SCH ×2 (08:53→21:06)
[2020-05-20] MEDS: ISOSORBIDE MONONITRATE ER 30 MG TAB.ER.24H PO SCH (08:53)
[2020-05-20] MEDS: ALLOPURINOL 300 MG TABLET. PO SCH (08:54)
[2020-05-20] MEDS: ASPIRIN ENTERIC COATED 81 MG TABLET.DR. PO SCH (08:54)
[2020-05-20] MEDS: HYDROcodone/APAP 5/325MG 1 TAB TABLET PO PRN ×3 (08:54→21:15)
[2020-05-20] MEDS: FERROUS SULFATE 325 MG TABLET. PO SCH (08:54)
[2020-05-20] MEDS: LUBIPROSTONE 24 MCG CAPSULE PO SCH ×2 (08:54→18:18)
[2020-05-20] MEDS: MULTIVITAMIN with MINERAL TABLET. PO SCH (08:54)
[2020-05-20] MEDS: METOPROLOL SUCC 24HR ER 50 MG TAB.ER.24H. PO SCH (08:54)
[2020-05-20] MEDS: FLUTICASONE 50MCG/NASAL SPRAY 16GM BOTTLE. NS SCH (09:00)
[2020-05-20] MEDS: INSULIN LISPRO 300 UNITS/3 ML VIAL. SQ SCH ×3 (09:08→18:22)
[2020-05-20] MEDS ORDERED: FUROSEMIDE 20 MG/2 ML VIAL. IVP ONE (09:15)
[2020-05-20 11:00] VITALS: BP 127/71
--- NOTE | 2020-05-20 11:31 | PDOC ---
PROGRESS NOTES Subjective Subjective Patient seen and examined Objective Objective Vital Signs Date Time Temp Pulse Resp B/P (MAP) Pulse Ox O2 Delivery O2 Flow Rate FiO2 05/20/20 08:54 80 05/20/20 07:30 97.6 20 125/69 (87) 91 BiPAP/CPAP 5.0 97.6 Intake and Output 05/20/20 07:00 Intake Total 236 ml Output Total 1325 ml Balance -1089 ml Intake Oral 236 ml Output Urine Total 1325 ml Physical Exam Abdomen: Normal bowel sounds Heart: Regular rate General: mild distress Lungs: Other (Mildly decreased breath sounds) Assessment Assessment Problems Medical Problems: (1) Elevated troponin I level Status: Acute (2) Substernal precordial chest pain Status: Acute Coronary artery disease. Status post stenting to the right coronary three days ago. No significant arrhythmias overnight. However patient developed further shortness of breath today. With treated with low-dose Lasix in the setting of elevated creatinine. Has been placed on further O2. Would consider pulmonary evaluation. Chronic diastolic CHF; increased shortness of breath today. Being treated with Lasix and higher doses of O2. Echo several days ago showed intact LV systolic function. Hypertension; controlled Hyperlipiemia; statin Diabetes, II; as pe PCP Morbid obesity. SUSANA with CPAP Comment Review of Relevant I have reviewed the following items jm (where applicable) has been applied. Labs Laboratory Tests Test 05/18/20 16:03 05/18/20 20:56 05/19/20 07:37 05/19/20 12:12 Glucose (Fingerstick) 192 mg/dL (70-99) 167 mg/dL (70-99) 162 mg/dL (70-99) 185 mg/dL (70-99) Test 05/19/20 16:50 05/19/20 17:45 05/19/20 19:25 05/20/20 07:12 Glucose (Fingerstick) 187 mg/dL (70-99) 197 mg/dL (70-99) O2 Saturation 91 % (92-99) Arterial Blood pH 7.46 (7.35-7.45) Arterial Blood pCO2 at Patient Temp 29 mmHg (35-46) Arterial Blood pO2 at Patient Temp 63 mmHg (65-108) Arterial Blood HCO3 20 mmol/L (21-28) Arterial Blood Base Excess -2 mmol/L (-3-3) FiO2 5 lpm nc Sodium Level 139 mmol/L (136-145) Potassium Level 4.3 mmol/L (3.5-5.1) Chloride Level 102 mmol/L (98-107) Carbon Dioxide Level 23 mmol/L (21-32) Anion Gap 14 (6-14) Blood Urea Nitrogen 31 mg/dL (8-26) Creatinine 1.6 mg/dL (0.7-1.3) Estimated GFR (Cockcroft-Gault) 43.3 Glucose Level 179 mg/dL (70-99) Calcium Level 8.6 mg/dL (8.5-10.1) GT-Cee-H-Type Natriuretic Peptide 3252 pg/mL (0-124) Test 05/20/20 11:03 Glucose (Fingerstick) 180 mg/dL (70-99) Laboratory Tests Test 05/19/20 12:12 05/19/20 16:50 05/19/20 17:45 05/19/20 19:25 Glucose (Fingerstick) 185 mg/dL (70-99) 187 mg/dL (70-99) O2 Saturation 91 % (92-99) Arterial Blood pH 7.46 (7.35-7.45) Arterial Blood pCO2 at Patient Temp 29 mmHg (35-46) Arterial Blood pO2 at Patient Temp 63 mmHg (65-108) Arterial Blood HCO3 20 mmol/L (21-28) Arterial Blood Base Excess -2 mmol/L (-3-3) FiO2 5 lpm nc Sodium Level 139 mmol/L (136-145) Potassium Level 4.3 mmol/L (3.5-5.1) Chloride Level 102 mmol/L (98-107) Carbon Dioxide Level 23 mmol/L (21-32) Anion Gap 14 (6-14) Blood Urea Nitrogen 31 mg/dL (8-26) Creatinine 1.6 mg/dL (0.7-1.3) Estimated GFR (Cockcroft-Gault) 43.3 Glucose Level 179 mg/dL (70-99) Calcium Level 8.6 mg/dL (8.5-10.1) BW-Jhy-I-Type Natriuretic Peptide 3252 pg/mL (0-124) Test 05/20/20 07:12 05/20/20 11:03 Glucose (Fingerstick) 197 mg/dL (70-99) 180 mg/dL (70-99) Medications Current Medications Nitroglycerin (Nitrostat) 0.4 mg 1X PRN SL CHEST PAIN Last administered on 05/16/20at 20:49; Start 05/16/20 at 20:45 Fentanyl Citrate (Fentanyl 2ml Vial) 50 mcg 1X ONCE IVP Last administered on 05/16/20at 21:47; Start 05/16/20 at 22:00; Stop 05/16/20 at 22:01; Status DC Fentanyl Citrate (Fentanyl 2ml Vial) 100 mcg STK-MED ONCE .ROUTE ; Start 05/16/20 at 21:45; Stop 05/16/20 at 21:45; Status DC Enoxaparin Sodium (Lovenox 40mg Syringe) 40 mg 1X ONCE SQ Last administered on 05/17/20at 00:16; Start 05/16/20 at 23:30; Stop 05/16/20 at 23:31; Status DC Aspirin (Aspirin Chewable) 324 mg 1X ONCE PO ; Start 05/16/20 at 23:30; Stop 05/16/20 at 23:31; Status DC Clopidogrel Bisulfate (Plavix) 300 mg 1X ONCE PO Last administered on 05/17/20at 00:17; Start 05/16/20 at 23:30; Stop 05/16/20 at 23:31; Status DC Ondansetron HCl (Zofran) 4 mg PRN Q8HRS PRN IV NAUSEA/VOMITING 1ST CHOICE; Start 05/16/20 at 23:15; Stop 05/17/20 at 23:14; Status DC Fentanyl Citrate (Fentanyl 2ml Vial) 50 mcg 1X ONCE IVP Last administered on 05/17/20at 00:16; Start 05/17/20 at 00:30; Stop 05/17/20 at 00:31; Status DC Nitroglycerin (Nitro-Bid Oint) 1 inch 1X ONCE TP Last administered on 05/17/20at 01:55; Start 05/17/20 at 00:30; Stop 05/17/20 at 00:31; Status DC Fentanyl Citrate (Fentanyl 2ml Vial) 50 mcg PRN Q2HR PRN IVP SEVERE PAIN 7-10 Last administered on 05/17/20at 09:41; Start 05/17/20 at 01:30; Stop 05/17/20 at 14:59; Status DC Insulin Human Lispro (HumaLOG) 0-7 UNITS TIDWMEALS SQ Last administered on 05/20/20at 09:08; Start 05/17/20 at 08:00 Dextrose (Dextrose 50%-Water Syringe) 12.5 gm PRN Q15MIN PRN IV SEE COMMENTS; Start 05/17/20 at 01:45 Aspirin (Ecotrin) 81 mg DAILY PO Last administered on 05/20/20at 08:54; Start 05/17/20 at 09:00 Atorvastatin Calcium (Lipitor) 20 mg HS PO Last administered on 05/19/20at 21:52; Start 05/17/20 at 21:00 Clopidogrel Bisulfate (Plavix) 75 mg DAILY PO Last administered on 05/20/20at 08:53; Start 05/17/20 at 09:00 Metoprolol Succinate (Toprol Xl) 50 mg DAILY PO Last administered on 05/20/20at 08:54; Start 05/17/20 at 09:00 Midazolam HCl (Versed) 2 mg STK-MED ONCE .ROUTE ; Start 05/17/20 at 12:55; Stop 05/17/20 at 12:55; Status DC Fentanyl Citrate (Fentanyl 2ml Vial) 100 mcg STK-MED ONCE .ROUTE ; Start 05/17/20 at 12:55; Stop 05/17/20 at 12:55; Status DC Lidocaine HCl (Xylocaine-Mpf 1% 2ml Vial) 2 ml STK-MED ONCE .ROUTE ; Start 05/17/20 at 12:57; Stop 05/17/20 at 12:58; Status DC Iodixanol (Visipaque 320) 100 ml STK-MED ONCE .ROUTE ; Start 05/17/20 at 12:57; Stop 05/17/20 at 12:58; Status DC Heparin Sodium/ Sodium Chloride 1,500 ml @ As Directed STK-MED ONCE .ROUTE ; Start 05/17/20 at 12:58; Stop 05/17/20 at 12:58; Status DC Verapamil HCl (Verapamil) 5 mg STK-MED ONCE .ROUTE ; Start 05/17/20 at 13:01; Stop 05/17/20 at 13:01; Status DC Heparin Sodium (Porcine) (Heparin Sodium) 10,000 unit STK-MED ONCE .ROUTE ; Start 05/17/20 at 13:01; Stop 05/17/20 at 13:01; Status DC Nitroglycerin (Nitroglycerin) 200 mcg STK-MED ONCE .ROUTE ; Start 05/17/20 at 13:01; Stop 05/17/20 at 13:01; Status DC Nitroglycerin (Nitroglycerin) 200 mcg 1X ONCE IART Last administered on 05/17/20at 13:45; Start 05/17/20 at 13:45; Stop 05/17/20 at 13:47; Status DC Verapamil HCl (Verapamil) 2.5 mg 1X ONCE IART Last administered on 05/17/20at 13:45; Start 05/17/20 at 13:45; Stop 05/17/20 at 13:47; Status DC Heparin Sodium (Porcine) (Heparin Sodium) 2,500 unit 1X ONCE IART Last administered on 05/17/20at 13:45; Start 05/17/20 at 13:45; Stop 05/17/20 at 13:47; Status DC Heparin Sodium/ Sodium Chloride (HEPARIN for ARTERIAL LINE FLUSH) 1,000 unit 1X ONCE IART Last administered on 05/17/20at 13:45; Start 05/17/20 at 13:45; Stop 05/17/20 at 13:47; Status DC Heparin Sodium/ Sodium Chloride (HEPARIN for ARTERIAL LINE FLUSH) 1,000 unit 1X ONCE IART Last administered on 05/17/20at 13:45; Start 05/17/20 at 13:45; Stop 05/17/20 at 13:47; Status DC Iodixanol (Visipaque 320) 100 ml 1X ONCE IART Last administered on 05/17/20at 13:45; Start 05/17/20 at 13:45; Stop 05/17/20 at 13:47; Status DC Lidocaine HCl (Xylocaine-Mpf 1% 2ml Vial) 2 ml 1X ONCE INJ Last administered on 05/17/20at 13:45; Start 05/17/20 at 13:45; Stop 05/17/20 at 13:47; Status DC Heparin Sodium (Porcine) (Heparin Sodium) 5,000 unit 1X ONCE IV Last administered on 05/17/20at 14:00; Start 05/17/20 at 14:00; Stop 05/17/20 at 14:01; Status DC Nitroglycerin (Nitroglycerin) 200 mcg STK-MED ONCE .ROUTE ; Start 05/17/20 at 14:01; Stop 05/17/20 at 14:01; Status DC Nitroglycerin (Nitroglycerin) 200 mcg 1X ONCE IART Last administered on 05/17/20at 14:15; Start 05/17/20 at 14:15; Stop 05/17/20 at 14:16; Status DC Nitroglycerin (Nitroglycerin) 200 mcg 1X ONCE IART Last administered on 05/17/20at 14:23; Start 05/17/20 at 14:30; Stop 05/17/20 at 14:31; Status DC Heparin Sodium (Porcine) (Heparin Sodium) 10,000 unit STK-MED ONCE .ROUTE ; Start 05/17/20 at 14:28; Stop 05/17/20 at 14:28; Status DC Clopidogrel Bisulfate (Plavix) 300 mg 1X ONCE PO Last administered on 05/17/20at 15:05; Start 05/17/20 at 14:30; Stop 05/17/20 at 14:32; Status DC Heparin Sodium (Porcine) (Heparin Sodium) 3,000 unit 1X ONCE IV Last administered on 05/17/20at 14:30; Start 05/17/20 at 14:30; Stop 05/17/20 at 14:32; Status DC Morphine Sulfate (Morphine Sulfate) 2 mg PRN Q4HRS PRN IV PAIN Last administered on 05/18/20at 06:51; Start 05/17/20 at 15:00 Heparin Sodium/ Sodium Chloride (HEPARIN for ARTERIAL LINE FLUSH) 1,000 unit 1X ONCE IART ; Start 05/17/20 at 15:15; Stop 05/17/20 at 15:16; Status Cancel Heparin Sodium/ Sodium Chloride (HEPARIN for ARTERIAL LINE FLUSH) 1,000 unit 1X ONCE IART ; Start 05/17/20 at 15:15; Stop 05/17/20 at 15:16; Status Cancel Midazolam HCl (Versed) 2 mg 1X ONCE IV Last administered on 05/17/20at 15:15; Start 05/17/20 at 15:15; Stop 05/17/20 at 15:48; Status DC Fentanyl Citrate (Fentanyl 2ml Vial) 100 mcg 1X ONCE IV ; Start 05/17/20 at 15:15; Stop 05/17/20 at 15:16; Status Cancel Lidocaine HCl (Lidocaine 1% 20ml Vial) 20 ml 1X ONCE INJ ; Start 05/17/20 at 15:15; Stop 05/17/20 at 15:16; Status Cancel Midazolam HCl (Versed) 2 mg 1X ONCE IV ; Start 05/17/20 at 15:30; Stop 05/17/20 at 15:31; Status Cancel Allopurinol (Zyloprim) 300 mg DAILY PO Last administered on 05/20/20at 08:54; Start 05/17/20 at 16:00 Amoxicillin/ Clavulanate Potassium (Augmentin 500/ 125mg) 1 tab BID PO Last administered on 05/20/20at 08:53; Start 05/17/20 at 21:00 Ergocalciferol (Vitamin D2) 50,000 unit WEEKLY PO ; Start 05/24/20 at 09:00 Ferrous Sulfate (Feosol) 325 mg DAILY PO Last administered on 05/20/20at 08:54; Start 05/17/20 at 16:00 Fluticasone Propionate (Flonase) 2 spray DAILY NS ; Start 05/17/20 at 16:00 Isosorbide Mononitrate (Imdur) 60 mg DAILY PO Last administered on 05/19/20at 08:35; Start 05/17/20 at 16:00; Stop 05/19/20 at 12:08; Status DC Pantoprazole Sodium (Protonix) 40 mg DAILYAC PO Last administered on 05/20/20at 08:53; Start 05/17/20 at 16:00 Tamsulosin HCl (Flomax) 0.4 mg HS PO Last administered on 05/19/20at 21:52; Start 05/17/20 at 21:00 Tizanidine HCl (Zanaflex) 4 mg QHS PO Last administered on 05/19/20at 21:52; Start 05/17/20 at 21:00 Ascorbic Acid (Vitamin C) 1,000 mg DAILY PO Last administered on 05/20/20at 08:53; Start 05/17/20 at 16:00 Lubiprostone (Amitiza) 24 mcg BIDWMEALS PO Last administered on 05/20/20at 08:54; Start 05/17/20 at 17:00 Multivitamins (Thera M Plus) 1 tab DAILY PO Last administered on 05/20/20at 08:54; Start 05/17/20 at 16:00 Heparin Sodium (Porcine) (Heparin Sodium) 5,000 unit Q8HRS SQ Last administered on 05/20/20at 06:35; Start 05/17/20 at 22:00 Acetaminophen/ Hydrocodone Bitart (Lortab 5/325) 1 tab PRN Q4HRS PRN PO PAIN Last administered on 05/20/20at 08:54; Start 05/18/20 at 09:15 Methylprednisolone Acetate (DEPO-Medrol 40MG VIAL) 40 mg 1X ONCE INJ ; Start 05/18/20 at 10:00; Stop 05/18/20 at 10:01; Status DC Bupivacaine HCl (Sensorcaine-Mpf 0.25%) 10 ml 1X ONCE IJ ; Start 05/18/20 at 10:00; Stop 05/18/20 at 10:01; Status DC Lactobacillus Rhamnosus (Culturelle) 1 cap BID PO Last administered on 05/20/20at 08:53; Start 05/18/20 at 21:00 Polyethylene Glycol (miraLAX PACKET) 17 gm 1X ONCE PO Last administered on 05/18/20at 17:50; Start 05/18/20 at 17:30; Stop 05/18/20 at 17:31; Status DC Docusate Sodium (Colace) 100 mg PRN DAILY PRN PO HARD STOOLS Last administered on 05/18/20at 17:50; Start 05/18/20 at 17:30 Isosorbide Mononitrate (Imdur) 120 mg DAILY PO Last administered on 05/20/20at 08:53; Start 05/20/20 at 09:00 Isosorbide Mononitrate (Imdur) 60 mg 1X ONCE PO Last administered on 05/19/20at 12:50; Start 05/19/20 at 12:15; Stop 05/19/20 at 12:18; Status DC Alprazolam (Xanax) 0.5 mg PRN Q8HRS PRN PO ANXIETY / AGITATION Last administered on 05/20/20at 02:41; Start 05/19/20 at 12:15 Furosemide (Lasix) 20 mg 1X ONCE IVP Last administered on 05/20/20at 10:53; Start 05/20/20 at 09:15; Stop 05/20/20 at 09:16; Status DC Active Scripts Active Hydrocodone-Apap 5-325 (Hydrocodone Bit/Acetaminophen) 1 Tab Tablet 1 Tab PO PRN Q6HRS PRN 5 Days Amox Tr-K Clv 500-125 Mg Tab (Amoxicillin/Potassium Clav) 1 Each Tablet 1 Tab PO BID 10 Days Aspirin Ec (Aspirin) 81 Mg Tablet. 1 Tab PO DAILY Reported Flomax (Tamsulosin Hcl) 0.4 Mg Cap.er.24h 1 Cap PO HS Fluticasone Propionate Nasal [place] (Fluticasone Propionate) 16 Gm [place].susp 2 [place] NS DAILY Linzess (Linaclotide) 145 Mcg Capsule 145 Mcg PO 3X/WEEK Fexofenadine Hcl 180 Mg Tablet 1 Tab PO DAILY Vitamin C (Ascorbic Acid) 500 Mg Capsule.er 1,000 Mg PO DAILY One Daily For Men Tablet (Multivits-Minerals/Fa/Lycopene) 1 Each Tablet 1 Tab PO DAILY 30 Days Iron (Ferrous Sulfate) 325 Mg Tablet 65 Mg PO DAILY Allopurinol 300 Mg Tablet 1 Tab PO DAILY Vitamin D2 (Ergocalciferol (Vitamin D2)) 50,000 Unit Capsule 50,000 Unit PO WEEKLY Dose given on the Take on Pantoprazole Sodium (Pantoprazole Sodium) 40 Mg Tablet. 1 Tab PO DAILY Gave this morning take tomorrow morning Tizanidine Hcl 4 Mg Tablet 1 Tab PO QHS Gave dose last night Take tonight before bedtime Vascepa (Icosapent Ethyl) 1 Gm Capsule 1 Gm PO Not given on this admission Take as previoulsy instructed Atorvastatin Calcium 20 Mg Tablet 1 Tab PO HS Gave last night Take tonight Clopidogrel (Clopidogrel Bisulfate) 75 Mg Tablet 1 Tab PO DAILY Gave this morning take tomorrow morning Isosorbide Mononitrate Er (Isosorbide Mononitrate) 30 Mg Tab.er.24h 60 Mg PO DAILY Gave this morning take tomorrow morning Repaglinide 1 Mg Tablet 1 Mg PO Not given on this admission Continue as previously instructed Toprol Xl (Metoprolol Succinate) 50 Mg Tab.er.24h 1 Tab PO DAILY Gave this morning take tomorrow morning Vitals/I & O Vital Sign - Last 24 Hours 05/19/20 05/19/20 05/19/20 05/19/20 12:50 15:00 19:00 20:00 Temp 97.7 97.8 97.7 97.8 Pulse 80 83 78 Resp 22 22 B/P (MAP) 108/72 (84) 100/59 (73) Pulse Ox 91 94 O2 Delivery Nasal Cannula Nasal Cannula Room Air O2 Flow Rate 5.0 5.0 05/19/20 05/19/20 05/20/20 05/20/20 21:52 23:00 03:00 07:30 Temp 98.1 97.6 97.6 98.1 97.6 97.6 Pulse 72 85 78 Resp 20 20 B/P (MAP) 112/72 (85) 146/81 (102) 125/69 (87) Pulse Ox 97 91 91 O2 Delivery Nasal Cannula BiPAP/CPAP BiPAP/CPAP BiPAP/CPAP O2 Flow Rate 5.0 5.0 5.0 5.0 05/20/20 05/20/20 08:53 08:54 Pulse 80 80 Intake and Output 05/19/20 05/19/20 05/20/20 15:00 23:00 07:00 Intake Total 118 ml 118 ml Output Total 450 ml 625 ml 250 ml Balance -450 ml -507 ml -132 ml Justicifation of Admission Dx: Justifications for Admission: Justification of Admission Dx: Yes Angina: Symp at Rest JACE AGUSTIN MD May 20, 2020 11:31
--- NOTE | 2020-05-20 11:34 | PDOC ---
PROGRESS NOTES Chief Complaint Chief Complaint 69 yo M w/ PMHx CAD s/p stents, DM2, GERD, HLD, HTN, chronic back pain, constipation recently hospitalized last week for falls and UTI. discharged on augmentin and discharged with home PT. had recommended rehab but patient refused and requested to go home instead. when he went home Patient reports he was ambulating into his house and began experiencing heaviness in his central chest. Associated with shortness of breath and diaphoresis. No nausea/vomiting or palpitations. Went inside of took nitro x2 and ASA, which did not significantly improved pain. Decided to come back to the hospital for evaluation of chest pain. Pain improved overnight, but the chest pain returned following ambulation to the bathroom. admitted for further work up. A/P Chest pain with Mild trop elevation; peak 0.35 secondary to CAD s/p Successful complex PCI of the RCA with implantation of a Shireen 4.0 x 23 mm drug-eluting stent; continue asa plavix and high dose statin hx of PCI/stent x2 in 2012 Acute hypoxic resp failure secondary to diastolic CHF exacerbation. recent echo with preserved EF Chronic diastolic CHF now in exacerabation. dose of IV lasix given pulm edema on chest xray CKD, baseline creatine 1.6;, metformin and lisinopril Morbid obesity SUSANA with CPAP UTI currently on augmentin Fall - unable to walk, has intractable left lower back pain, h/o SI joint injection last admission . PT and PMR consulted. patient refusing placement wants to go home wit hPT BPH - cont meds Panniculitis - with prior balanitis, will use topical nystatin powder HTN - controlled DM2 - sliding scale plan: dose of lasix given pulm edema. wean 02 as tolerated. had chest pain yesterday and increased imdur dose. labs in AM. follow creatine. dc summary done, will need addendum please History of Present Illness History of Present Illness sob yesterday afternoon requiring 4 liters of 02. still sob this AM. lasix has been held since admission due to creat elevation Vitals Vitals Vital Signs Date Time Temp Pulse Resp B/P (MAP) Pulse Ox O2 Delivery O2 Flow Rate FiO2 05/20/20 08:54 80 05/20/20 07:30 97.6 20 125/69 (87) 91 BiPAP/CPAP 5.0 97.6 Physical Exam General: mild distress Heart: Regular rate Lungs: Clear Abdomen: Normal bowel sounds Labs LABS Laboratory Tests Test 05/19/20 12:12 05/19/20 16:50 05/19/20 17:45 05/19/20 19:25 Glucose (Fingerstick) 185 mg/dL (70-99) 187 mg/dL (70-99) O2 Saturation 91 % (92-99) Arterial Blood pH 7.46 (7.35-7.45) Arterial Blood pCO2 at Patient Temp 29 mmHg (35-46) Arterial Blood pO2 at Patient Temp 63 mmHg (65-108) Arterial Blood HCO3 20 mmol/L (21-28) Arterial Blood Base Excess -2 mmol/L (-3-3) FiO2 5 lpm nc Sodium Level 139 mmol/L (136-145) Potassium Level 4.3 mmol/L (3.5-5.1) Chloride Level 102 mmol/L (98-107) Carbon Dioxide Level 23 mmol/L (21-32) Anion Gap 14 (6-14) Blood Urea Nitrogen 31 mg/dL (8-26) Creatinine 1.6 mg/dL (0.7-1.3) Estimated GFR (Cockcroft-Gault) 43.3 Glucose Level 179 mg/dL (70-99) Calcium Level 8.6 mg/dL (8.5-10.1) JA-Aqk-D-Type Natriuretic Peptide 3252 pg/mL (0-124) Test 05/20/20 07:12 05/20/20 11:03 Glucose (Fingerstick) 197 mg/dL (70-99) 180 mg/dL (70-99) Assessment and Plan Assessmemt and Plan Problems Medical Problems: (1) Elevated troponin I level Status: Acute (2) Substernal precordial chest pain Status: Acute Comment Review of Relevant I have reviewed the following items jm (where applicable) has been applied. Labs Laboratory Tests Test 05/18/20 16:03 05/18/20 20:56 05/19/20 07:37 05/19/20 12:12 Glucose (Fingerstick) 192 mg/dL (70-99) 167 mg/dL (70-99) 162 mg/dL (70-99) 185 mg/dL (70-99) Test 05/19/20 16:50 05/19/20 17:45 05/19/20 19:25 05/20/20 07:12 Glucose (Fingerstick) 187 mg/dL (70-99) 197 mg/dL (70-99) O2 Saturation 91 % (92-99) Arterial Blood pH 7.46 (7.35-7.45) Arterial Blood pCO2 at Patient Temp 29 mmHg (35-46) Arterial Blood pO2 at Patient Temp 63 mmHg (65-108) Arterial Blood HCO3 20 mmol/L (21-28) Arterial Blood Base Excess -2 mmol/L (-3-3) FiO2 5 lpm nc Sodium Level 139 mmol/L (136-145) Potassium Level 4.3 mmol/L (3.5-5.1) Chloride Level 102 mmol/L (98-107) Carbon Dioxide Level 23 mmol/L (21-32) Anion Gap 14 (6-14) Blood Urea Nitrogen 31 mg/dL (8-26) Creatinine 1.6 mg/dL (0.7-1.3) Estimated GFR (Cockcroft-Gault) 43.3 Glucose Level 179 mg/dL (70-99) Calcium Level 8.6 mg/dL (8.5-10.1) JC-Dia-H-Type Natriuretic Peptide 3252 pg/mL (0-124) Test 05/20/20 11:03 Glucose (Fingerstick) 180 mg/dL (70-99) Laboratory Tests Test 05/19/20 12:12 05/19/20 16:50 05/19/20 17:45 05/19/20 19:25 Glucose (Fingerstick) 185 mg/dL (70-99) 187 mg/dL (70-99) O2 Saturation 91 % (92-99) Arterial Blood pH 7.46 (7.35-7.45) Arterial Blood pCO2 at Patient Temp 29 mmHg (35-46) Arterial Blood pO2 at Patient Temp 63 mmHg (65-108) Arterial Blood HCO3 20 mmol/L (21-28) Arterial Blood Base Excess -2 mmol/L (-3-3) FiO2 5 lpm nc Sodium Level 139 mmol/L (136-145) Potassium Level 4.3 mmol/L (3.5-5.1) Chloride Level 102 mmol/L (98-107) Carbon Dioxide Level 23 mmol/L (21-32) Anion Gap 14 (6-14) Blood Urea Nitrogen 31 mg/dL (8-26) Creatinine 1.6 mg/dL (0.7-1.3) Estimated GFR (Cockcroft-Gault) 43.3 Glucose Level 179 mg/dL (70-99) Calcium Level 8.6 mg/dL (8.5-10.1) BL-Tgl-P-Type Natriuretic Peptide 3252 pg/mL (0-124) Test 05/20/20 07:12 05/20/20 11:03 Glucose (Fingerstick) 197 mg/dL (70-99) 180 mg/dL (70-99) Medications Current Medications Nitroglycerin (Nitrostat) 0.4 mg 1X PRN SL CHEST PAIN Last administered on 05/16/20at 20:49; Start 05/16/20 at 20:45 Fentanyl Citrate (Fentanyl 2ml Vial) 50 mcg 1X ONCE IVP Last administered on 05/16/20at 21:47; Start 05/16/20 at 22:00; Stop 05/16/20 at 22:01; Status DC Fentanyl Citrate (Fentanyl 2ml Vial) 100 mcg STK-MED ONCE .ROUTE ; Start 05/16/20 at 21:45; Stop 05/16/20 at 21:45; Status DC Enoxaparin Sodium (Lovenox 40mg Syringe) 40 mg 1X ONCE SQ Last administered on 05/17/20at 00:16; Start 05/16/20 at 23:30; Stop 05/16/20 at 23:31; Status DC Aspirin (Aspirin Chewable) 324 mg 1X ONCE PO ; Start 05/16/20 at 23:30; Stop 05/16/20 at 23:31; Status DC Clopidogrel Bisulfate (Plavix) 300 mg 1X ONCE PO Last administered on 05/17at 00:17; Start 05/16/20 at 23:30; Stop 05/16/20 at 23:31; Status DC Ondansetron HCl (Zofran) 4 mg PRN Q8HRS PRN IV NAUSEA/VOMITING 1ST CHOICE; Start 05/16/20 at 23:15; Stop 05/17/20 at 23:14; Status DC Fentanyl Citrate (Fentanyl 2ml Vial) 50 mcg 1X ONCE IVP Last administered on 05/17/20at 00:16; Start 05/17/20 at 00:30; Stop 05/17/20 at 00:31; Status DC Nitroglycerin (Nitro-Bid Oint) 1 inch 1X ONCE TP Last administered on 05/17/20at 01:55; Start 05/17/20 at 00:30; Stop 05/17/20 at 00:31; Status DC Fentanyl Citrate (Fentanyl 2ml Vial) 50 mcg PRN Q2HR PRN IVP SEVERE PAIN 7-10 Last administered on 05/17/20at 09:41; Start 05/17/20 at 01:30; Stop 05/17/20 at 14:59; Status DC Insulin Human Lispro (HumaLOG) 0-7 UNITS TIDWMEALS SQ Last administered on at 09:08; Start 05/17/20 at 08:00 Dextrose (Dextrose 50%-Water Syringe) 12.5 gm PRN Q15MIN PRN IV SEE COMMENTS; Start 05/17/20 at 01:45 Aspirin (Ecotrin) 81 mg DAILY PO Last administered on 05/20/20at 08:54; Start 05/17/20 at 09:00 Atorvastatin Calcium (Lipitor) 20 mg HS PO Last administered on 05/19/20at 21:52; Start 05/17/20 at 21:00 Clopidogrel Bisulfate (Plavix) 75 mg DAILY PO Last administered on 05/20/20at 08:53; Start 05/17/20 at 09:00 Metoprolol Succinate (Toprol Xl) 50 mg DAILY PO Last administered on 05/20/20at 08:54; Start 05/17/20 at 09:00 Midazolam HCl (Versed) 2 mg STK-MED ONCE .ROUTE ; Start 05/17/20 at 12:55; Stop 05/17/20 at 12:55; Status DC Fentanyl Citrate (Fentanyl 2ml Vial) 100 mcg STK-MED ONCE .ROUTE ; Start 05/17/20 at 12:55; Stop 05/17/20 at 12:55; Status DC Lidocaine HCl (Xylocaine-Mpf 1% 2ml Vial) 2 ml STK-MED ONCE .ROUTE ; Start 05/17/20 at 12:57; Stop 05/17/20 at 12:58; Status DC Iodixanol (Visipaque 320) 100 ml STK-MED ONCE .ROUTE ; Start 05/17/20 at 12:57; Stop 05/17/20 at 12:58; Status DC Heparin Sodium/ Sodium Chloride 1,500 ml @ As Directed STK-MED ONCE .ROUTE ; Start 05/17/20 at 12:58; Stop 05/17/20 at 12:58; Status DC Verapamil HCl (Verapamil) 5 mg STK-MED ONCE .ROUTE ; Start 05/17/20 at 13:01; Stop 05/17/20 at 13:01; Status DC Heparin Sodium (Porcine) (Heparin Sodium) 10,000 unit STK-MED ONCE .ROUTE ; Start 05/17/20 at 13:01; Stop 05/17/20 at 13:01; Status DC Nitroglycerin (Nitroglycerin) 200 mcg STK-MED ONCE .ROUTE ; Start 05/17/20 at 13:01; Stop 05/17/20 at 13:01; Status DC Nitroglycerin (Nitroglycerin) 200 mcg 1X ONCE IART Last administered on 05/17/20at 13:45; Start 05/17/20 at 13:45; Stop 05/17/20 at 13:47; Status DC Verapamil HCl (Verapamil) 2.5 mg 1X ONCE IART Last administered on 05/17/20at 13:45; Start 05/17/20 at 13:45; Stop 05/17/20 at 13:47; Status DC Heparin Sodium (Porcine) (Heparin Sodium) 2,500 unit 1X ONCE IART Last administered on 05/17/20at 13:45; Start 05/17/20 at 13:45; Stop 05/17/20 at 13:47; Status DC Heparin Sodium/ Sodium Chloride (HEPARIN for ARTERIAL LINE FLUSH) 1,000 unit 1X ONCE IART Last administered on 05/17/20at 13:45; Start 05/17/20 at 13:45; Stop 05/17/20 at 13:47; Status DC Heparin Sodium/ Sodium Chloride (HEPARIN for ARTERIAL LINE FLUSH) 1,000 unit 1X ONCE IART Last administered on 05/17/20at 13:45; Start 05/17/20 at 13:45; Stop 05/17/20 at 13:47; Status DC Iodixanol (Visipaque 320) 100 ml 1X ONCE IART Last administered on 05/17/20at 13:45; Start 05/17/20 at 13:45; Stop 05/17/20 at 13:47; Status DC Lidocaine HCl (Xylocaine-Mpf 1% 2ml Vial) 2 ml 1X ONCE INJ Last administered on 05/17/20at 13:45; Start 05/17/20 at 13:45; Stop 05/17/20 at 13:47; Status DC Heparin Sodium (Porcine) (Heparin Sodium) 5,000 unit 1X ONCE IV Last administered on 05/17/20at 14:00; Start 05/17/20 at 14:00; Stop 05/17/20 at 14:01; Status DC Nitroglycerin (Nitroglycerin) 200 mcg STK-MED ONCE .ROUTE ; Start 05/17/20 at 1 4:01; Stop 05/17/20 at 14:01; Status DC Nitroglycerin (Nitroglycerin) 200 mcg 1X ONCE IART Last administered on 05/17/20at 14:15; Start 05/17/20 at 14:15; Stop 05/17/20 at 14:16; Status DC Nitroglycerin (Nitroglycerin) 200 mcg 1X ONCE IART Last administered on 05/17/20at 14:23; Start 05/17/20 at 14:30; Stop 05/17/20 at 14:31; Status DC Heparin Sodium (Porcine) (Heparin Sodium) 10,000 unit STK-MED ONCE .ROUTE ; Start 05/17/20 at 14:28; Stop 05/17/20 at 14:28; Status DC Clopidogrel Bisulfate (Plavix) 300 mg 1X ONCE PO Last administered on 05/17/20at 15:05; Start 05/17/20 at 14:30; Stop 05/17/20 at 14:32; Status DC Heparin Sodium (Porcine) (Heparin Sodium) 3,000 unit 1X ONCE IV Last administered on 05/17/20at 14:30; Start 05/17/20 at 14:30; Stop 05/17/20 at 14:32; Status DC Morphine Sulfate (Morphine Sulfate) 2 mg PRN Q4HRS PRN IV PAIN Last administered on 05/18/20at 06:51; Start 05/17/20 at 15:00 Heparin Sodium/ Sodium Chloride (HEPARIN for ARTERIAL LINE FLUSH) 1,000 unit 1X ONCE IART ; Start 05/17/20 at 15:15; Stop 05/17/20 at 15:16; Status Cancel Heparin Sodium/ Sodium Chloride (HEPARIN for ARTERIAL LINE FLUSH) 1,000 unit 1X ONCE IART ; Start 05/17/20 at 15:15; Stop 05/17/20 at 15:16; Status Cancel Midazolam HCl (Versed) 2 mg 1X ONCE IV Last administered on 05/17/20at 15:15; Start 05/17/20 at 15:15; Stop 05/17/20 at 15:48; Status DC Fentanyl Citrate (Fentanyl 2ml Vial) 100 mcg 1X ONCE IV ; Start 05/17/20 at 15:15; Stop 05/17/20 at 15:16; Status Cancel Lidocaine HCl (Lidocaine 1% 20ml Vial) 20 ml 1X ONCE INJ ; Start 05/17/20 at 15:15; Stop 05/17/20 at 15:16; Status Cancel Midazolam HCl (Versed) 2 mg 1X ONCE IV ; Start 05/17/20 at 15:30; Stop 05/17/20 at 15:31; Status Cancel Allopurinol (Zyloprim) 300 mg DAILY PO Last administered on 05/20/20at 08:54; Start 05/17/20 at 16:00 Amoxicillin/ Clavulanate Potassium (Augmentin 500/ 125mg) 1 tab BID PO Last administered on 05/20/20at 08:53; Start 05/17/20 at 21:00 Ergocalciferol (Vitamin D2) 50,000 unit WEEKLY PO ; Start 05/24/20 at 09:00 Ferrous Sulfate (Feosol) 325 mg DAILY PO Last administered on 05/20/20at 08:54; Start 05/17/20 at 16:00 Fluticasone Propionate (Flonase) 2 spray DAILY NS ; Start 05/17/20 at 16:00 Isosorbide Mononitrate (Imdur) 60 mg DAILY PO Last administered on 05/19/20at 08:35; Start 05/17/20 at 16:00; Stop 05/19/20 at 12:08; Status DC Pantoprazole Sodium (Protonix) 40 mg DAILYAC PO Last administered on 05/20/20at 08:53; Start 05/17/20 at 16:00 Tamsulosin HCl (Flomax) 0.4 mg HS PO Last administered on 05/19/20at 21:52; Start 05/17/20 at 21:00 Tizanidine HCl (Zanaflex) 4 mg QHS PO Last administered on 05/19/20 21:52; Start 05/17/20 at 21:00 Ascorbic Acid (Vitamin C) 1,000 mg DAILY PO Last administered on 05/20/20 08:53; Start 05/17/20 at 16:00 Lubiprostone (Amitiza) 24 mcg BIDWMEALS PO Last administered on 05/20/20 08:54; Start 05/17/20 at 17:00 Multivitamins (Thera M Plus) 1 tab DAILY PO Last administered on 05/20/20 08:54; Start 05/17/20 at 16:00 Heparin Sodium (Porcine) (Heparin Sodium) 5,000 unit Q8HRS SQ Last administered on 05/20/20at 06:35; Start 05/17/20 at 22:00 Acetaminophen/ Hydrocodone Bitart (Lortab 5/325) 1 tab PRN Q4HRS PRN PO PAIN Last administered on 05/20/20at 08:54; Start 05/18/20 at 09:15 Methylprednisolone Acetate (DEPO-Medrol 40MG VIAL) 40 mg 1X ONCE INJ ; Start 05/18/20 at 10:00; Stop 05/18/20 at 10:01; Status DC Bupivacaine HCl (Sensorcaine-Mpf 0.25%) 10 ml 1X ONCE IJ ; Start 05/18/20 at 10:00; Stop 05/18/20 at 10:01; Status DC Lactobacillus Rhamnosus (Culturelle) 1 cap BID PO Last administered on at 08:53; Start 05/18/20 at 21:00 Polyethylene Glycol (miraLAX PACKET) 17 gm 1X ONCE PO Last administered on 05/18/20at 17:50; Start 05/18/20 at 17:30; Stop 05/18/20 at 17:31; Status DC Docusate Sodium (Colace) 100 mg PRN DAILY PRN PO HARD STOOLS Last administered on 05/18/20at 17:50; Start 05/18/20 at 17:30 Isosorbide Mononitrate (Imdur) 120 mg DAILY PO Last administered on 05/20/20at 08:53; Start 05/20/20 at 09:00 Isosorbide Mononitrate (Imdur) 60 mg 1X ONCE PO Last administered on 7/18/20at 12:50; Start 05/19/20 at 12:15; Stop 05/19/20 at 12:18; Status DC Alprazolam (Xanax) 0.5 mg PRN Q8HRS PRN PO ANXIETY / AGITATION Last administered on 05/20/20at 02:41; Start 05/19/20 at 12:15 Furosemide (Lasix) 20 mg 1X ONCE IVP Last administered on 05/20/20at 10:53; Start 05/20/20 at 09:15; Stop 05/20/20 at 09:16; Status DC Active Scripts Active Hydrocodone-Apap 5-325 (Hydrocodone Bit/Acetaminophen) 1 Tab Tablet 1 Tab PO PRN Q6HRS PRN 5 Days Amox Tr-K Clv 500-125 Mg Tab (Amoxicillin/Potassium Clav) 1 Each Tablet 1 Tab PO BID 10 Days Aspirin Ec (Aspirin) 81 Mg Tablet.dr 1 Tab PO DAILY Reported Flomax (Tamsulosin Hcl) 0.4 Mg Cap.er.24h 1 Cap PO HS Fluticasone Propionate Nasal [place] (Fluticasone Propionate) 16 Gm [place].susp 2 [place] NS DAILY Linzess (Linaclotide) 145 Mcg Capsule 145 Mcg PO 3X/WEEK Fexofenadine Hcl 180 Mg Tablet 1 Tab PO DAILY Vitamin C (Ascorbic Acid) 500 Mg Capsule.er 1,000 Mg PO DAILY One Daily For Men Tablet (Multivits-Minerals/Fa/Lycopene) 1 Each Tablet 1 Tab PO DAILY 30 Days Iron (Ferrous Sulfate) 325 Mg Tablet 65 Mg PO DAILY Allopurinol 300 Mg Tablet 1 Tab PO DAILY Vitamin D2 (Ergocalciferol (Vitamin D2)) 50,000 Unit Capsule 50,000 Unit PO WEEKLY Dose given on the Take on Pantoprazole Sodium (Pantoprazole Sodium) 40 Mg Tablet. 1 Tab PO DAILY Gave this morning take tomorrow morning Tizanidine Hcl 4 Mg Tablet 1 Tab PO QHS Gave dose last night Take tonight before bedtime Vascepa (Icosapent Ethyl) 1 Gm Capsule 1 Gm PO Not given on this admission Take as previoulsy instructed Atorvastatin Calcium 20 Mg Tablet 1 Tab PO HS Gave last night Take tonight Clopidogrel (Clopidogrel Bisulfate) 75 Mg Tablet 1 Tab PO DAILY Gave this morning take tomorrow morning Isosorbide Mononitrate Er (Isosorbide Mononitrate) 30 Mg Tab.er.24h 60 Mg PO DAILY Gave this morning take tomorrow morning Repaglinide 1 Mg Tablet 1 Mg PO Not given on this admission Continue as previously instructed Toprol Xl (Metoprolol Succinate) 50 Mg Tab.er.24h 1 Tab PO DAILY Gave this morning take tomorrow morning Vitals/I & O Vital Sign - Last 24 Hours 05/19/20 05/19/20 05/19/20 05/19/20 12:50 15:00 19:00 20:00 Temp 97.7 97.8 97.7 97.8 Pulse 80 83 78 Resp 22 22 B/P (MAP) 108/72 (84) 100/59 (73) Pulse Ox 91 94 O2 Delivery Nasal Cannula Nasal Cannula Room Air O2 Flow Rate 5.0 5.0 05/19/20 05/19/20 05/20/20 05/20/20 21:52 23:00 03:00 07:30 Temp 98.1 97.6 97.6 98.1 97.6 97.6 Pulse 72 85 78 Resp 20 20 B/P (MAP) 112/72 (85) 146/81 (102) 125/69 (87) Pulse Ox 97 91 91 O2 Delivery Nasal Cannula BiPAP/CPAP BiPAP/CPAP BiPAP/CPAP O2 Flow Rate 5.0 5.0 5.0 5.0 05/20/20 05/20/20 08:53 08:54 Pulse 80 80 Intake and Output 05/19/20 05/19/20 05/20/20 15:00 23:00 07:00 Intake Total 118 ml 118 ml Output Total 450 ml 625 ml 250 ml Balance -450 ml -507 ml -132 ml Justicifation of Admission Dx: Justifications for Admission: Justification of Admission Dx: Yes Angina: Symp at Rest KATH CABALLERO MD May 20, 2020 11:34
[2020-05-20 15:00] VITALS: BP 147/76
[2020-05-20 19:30] VITALS: BP 134/75
[2020-05-20] MEDS: ATORVASTATIN CALCIUM 20 MG TABLET PO SCH (21:06)
[2020-05-20] MEDS: tiZANidine 4 MG TABLET. PO SCH (21:06)
[2020-05-20] MEDS: TAMSULOSIN 0.4 MG CAP.ER.24H. PO SCH (21:06)
[2020-05-20 23:20] VITALS: BP 107/61
[2020-05-21 03:00] VITALS: BP 121/68
[2020-05-21] MEDS: HEPARIN for SUB-Q USE 5,000 UNIT/ML VIAL. SQ SCH ×3 (06:17→21:33)
[2020-05-21 07:00] VITALS: BP 129/82
[2020-05-21] MEDS: INSULIN LISPRO 300 UNITS/3 ML VIAL. SQ SCH ×3 (08:00→16:13)
--- NOTE | 2020-05-21 08:00 | NUR ---
Patient refused breakfast, morning insulin dose not given. Will continue to monitor.
[2020-05-21] MEDS: FLUTICASONE 50MCG/NASAL SPRAY 16GM BOTTLE. NS SCH (09:00)
[2020-05-21] MEDS: ASPIRIN ENTERIC COATED 81 MG TABLET.DR. PO SCH (09:35)
[2020-05-21] MEDS: LUBIPROSTONE 24 MCG CAPSULE PO SCH ×2 (09:35→16:07)
[2020-05-21] MEDS: FERROUS SULFATE 325 MG TABLET. PO SCH (09:35)
[2020-05-21] MEDS: LACTOBACILLUS RHAMNOSUS GG 1 CAPSULE. PO SCH ×2 (09:35→21:28)
[2020-05-21] MEDS: CLOPIDOGREL BISULFATE 75 MG TABLET PO SCH (09:35)
[2020-05-21] MEDS: PANTOPRAZOLE 40 MG TABLET.DR. PO SCH (09:35)
[2020-05-21] MEDS: AMOXICILLIN/K CLAV 500/125MG TABLET. PO SCH ×2 (09:36→21:28)
[2020-05-21] MEDS: ASCORBIC ACID 500 MG TABLET PO SCH (09:36)
[2020-05-21] MEDS: ALLOPURINOL 300 MG TABLET. PO SCH (09:36)
[2020-05-21] MEDS: METOPROLOL SUCC 24HR ER 50 MG TAB.ER.24H. PO SCH (09:36)
[2020-05-21] MEDS: ISOSORBIDE MONONITRATE ER 30 MG TAB.ER.24H PO SCH (09:37)
[2020-05-21] MEDS: MULTIVITAMIN with MINERAL TABLET. PO SCH (09:37)
[2020-05-21] MEDS: ALPRAZolam 0.5 MG TABLET PO PRN ×2 (09:43→17:55)
[2020-05-21] MEDS: HYDROcodone/APAP 5/325MG 1 TAB TABLET PO PRN ×2 (09:44→16:07)
[2020-05-21 10:34] VITALS: BP 149/71
--- NOTE | 2020-05-21 11:56 | PDOC ---
LUNA MACIAS [employer] FINANCIAL REPORT SERVICE 05/21/20 1156: CARDIO Progress Notes Date and Time Date of Service 05/21/20 Time of Evaluation 1140 Subjective Subjective: No Palpitations, No Dizziness, Other (c/o dyspnea with ecertion. Doesnt feel well) Vitals Vitals Vital Signs Date Time Temp Pulse Resp B/P (MAP) Pulse Ox O2 Delivery O2 Flow Rate FiO2 05/21/20 10:34 97.9 80 22 149/71 (97) 94 BiPAP/CPAP 97.9 05/21/20 08:00 5.0 Weight Weight [ ] Input and Output Intake and Output Intake and Output 05/21/20 07:00 Intake Total 1020 ml Output Total 1225 ml Balance -205 ml Intake Oral 1020 ml Output Urine Total 1225 ml # Bowel Movements 1 Laboratory Labs Laboratory Tests Test 05/20/20 16:55 05/20/20 21:01 05/21/20 06:43 05/21/20 11:13 Glucose (Fingerstick) 163 mg/dL (70-99) 165 mg/dL (70-99) 173 mg/dL (70-99) 189 mg/dL (70-99) Physical Exam HEENT: Neck Supple W Full Motion Chest: Symmetric LUNGS: Other (diminished bases) Heart: RRR Abdomen: Soft N/T, Other (obese ) Extremities: Other (trace bilateral LE edema) Neurology: alert, oriented, follow commands Assessment Assessment 1. CAD; s/p previous PCI/stents to the LCx and 1st diagonal. s/p PCI/JOELLE to the RCA 05/17/20 2. Acute on chronic diastolic CHF; c/o dyspnea and CXR with vascular congestion 5. Hypertension; controlled 6. Hyperlipiemia; statin 7. Diabetes, II; as per PCP 8. CKD; Cr stable 9. Morbid obesity. SUSANA with CPAP 10. BPH, recent UTI Recommendations Will give dose of IV Lasix Secondary prevention including DAPT with ASA/Plavix Increase statin therapy Cardiac rehab referral Discussed lifestyle modification, weight loss Supportive care Justicifation of Admission Dx: Justifications for Admission: Justification of Admission Dx: Yes Angina: Symp at Rest JACE AGUSTIN MD 05/21/20 1702: CARDIO Progress Notes Assessment Assessment Patient seen and examined CAD; s/p previous PCI/stents to the LCx and 1st diagonal. s/p PCI/JOELLE to the RCA 05/17/20. Continue medical treatment. Acute on chronic diastolic CHF; c/o dyspnea and CXR with vascular congestion. IV Lasix with monitoring of patient's renal function Hypertension; controlled Hyperlipiemia; statin CKD; Cr stable Morbid obesity. SUSANA with CPAP LUNA MACIAS APRN May 21, 2020 11:56 JACE AGUSTIN MD May 21, 2020 17:02
[2020-05-21] MEDS ORDERED: FUROSEMIDE 40 MG/4 ML VIAL. IVP ONE (12:15)
--- NOTE | 2020-05-21 14:05 | PDOC ---
[employer] PROGRESS NOTE Chief Complaint Chief Complaint Chest pain Severe morbid obesity 437 pounds Multiple comorbidities please see below History of Present Illness History of Present Illness 05/21/2022 Patient seen and examined Discussed with case management (we plan to get him to custodial today but apparently they do not have enough staff at skilled) Discussed with RN Chart reviewed Discussed with patient's 1 Vitals/I&O Vitals/I&O: Vital Signs Date Time Temp Pulse Resp B/P (MAP) Pulse Ox O2 Delivery O2 Flow Rate FiO2 05/21/20 10:34 97.9 80 22 149/71 (97) 94 BiPAP/CPAP 97.9 05/21/20 08:00 5.0 I & O 05/20/20 05/20/20 05/21/20 15:00 23:00 07:00 Intake Total 120 ml 500 ml 400 ml Output Total 575 ml 350 ml 300 ml Balance -455 ml 150 ml 100 ml Physical Exam General: Alert, mild distress, Other (Morbidly obese) Heart: Regular rate Lungs: Clear Abdomen: Normal bowel sounds Labs Labs: Laboratory Tests Test 05/20/20 16:55 05/20/20 21:01 05/21/20 06:43 05/21/20 11:13 Glucose (Fingerstick) 163 mg/dL (70-99) 165 mg/dL (70-99) 173 mg/dL (70-99) 189 mg/dL (70-99) Assessment and Plan Assessmemt and Plan Problems Medical Problems: (1) Elevated troponin I level Status: Acute (2) Substernal precordial chest pain Status: Acute Chest pain with Mild trop elevation; peak 0.35 secondary to CAD s/p Successful complex PCI of the RCA with implantation of a Shireen 4.0 x 23 mm drug-eluting stent; continue asa plavix and high dose statin hx of PCI/stent x2 in 2013 Acute hypoxic resp failure secondary to diastolic CHF exacerbation. recent echo with preserved EF Chronic diastolic CHF now in exacerabation. dose of IV lasix given pulm edema on chest xray CKD, baseline creatine 1.6;, metformin and lisinopril Morbid obesity SUSANA with CPAP UTI currently on augmentin Fall - unable to walk, has intractable left lower back pain, h/o SI joint injection last admission . PT and PMR consulted. patient refusing placement wants to go home wit hPT BPH - cont meds Panniculitis - with prior balanitis, will use topical nystatin powder HTN - controlled DM2 - sliding scale Discharge to [facility] custodial in a.m. Comment Review of Relevant I have reviewed the following items jm (where applicable) has been applied. Medications: Current Medications Medications (Trade) Dose Ordered Sig/Micah Route PRN Reason Start Time Stop Time Status Last Admin Dose Admin Furosemide (Lasix) 40 mg 1X ONCE IVP 05/21/20 12:15 05/21/20 12:16 DC 05/21/20 13:21 Justicifation of Admission Dx: Justifications for Admission: Justification of Admission Dx: Yes Angina: Symp at Rest HERRERA MOON III DO May 21, 2020 14:05
[2020-05-21 14:40] VITALS: BP 135/75
[2020-05-21 18:25] LABS: CREATININE 1.9 mg/dL (0.7-1.3); GFR 35.5; POTASSIUM 4.1 mmol/L (3.5-5.1)
[2020-05-21 19:45] VITALS: BP 105/65
[2020-05-21] MEDS ORDERED: ATORVASTATIN CALCIUM 20 MG TABLET PO SCH (21:00)
[2020-05-21] MEDS: tiZANidine 4 MG TABLET. PO SCH (21:27)
[2020-05-21] MEDS: TAMSULOSIN 0.4 MG CAP.ER.24H. PO SCH (21:28)
[2020-05-21 22:40] VITALS: BP 106/70
[2020-05-22] MEDS: HYDROcodone/APAP 5/325MG 1 TAB TABLET PO PRN ×2 (00:24→06:45)
[2020-05-22 03:05] VITALS: BP 111/73
[2020-05-22] MEDS: HEPARIN for SUB-Q USE 5,000 UNIT/ML VIAL. SQ SCH (06:09)
[2020-05-22] MEDS: ALPRAZolam 0.5 MG TABLET PO PRN (06:45)
[2020-05-22 07:00] VITALS: BP 110/64
[2020-05-22] MEDS: MULTIVITAMIN with MINERAL TABLET. PO SCH (08:29)
[2020-05-22] MEDS: ASCORBIC ACID 500 MG TABLET PO SCH (08:29)
[2020-05-22] MEDS: AMOXICILLIN/K CLAV 500/125MG TABLET. PO SCH (08:29)
[2020-05-22] MEDS: ASPIRIN ENTERIC COATED 81 MG TABLET.DR. PO SCH (08:30)
[2020-05-22] MEDS: ALLOPURINOL 300 MG TABLET. PO SCH (08:30)
[2020-05-22] MEDS: ISOSORBIDE MONONITRATE ER 30 MG TAB.ER.24H PO SCH (08:30)
[2020-05-22] MEDS: FERROUS SULFATE 325 MG TABLET. PO SCH (08:30)
[2020-05-22] MEDS: PANTOPRAZOLE 40 MG TABLET.DR. PO SCH (08:30)
[2020-05-22] MEDS: LACTOBACILLUS RHAMNOSUS GG 1 CAPSULE. PO SCH (08:30)
[2020-05-22] MEDS: LUBIPROSTONE 24 MCG CAPSULE PO SCH (08:30)
[2020-05-22] MEDS: CLOPIDOGREL BISULFATE 75 MG TABLET PO SCH (08:30)
[2020-05-22] MEDS: METOPROLOL SUCC 24HR ER 50 MG TAB.ER.24H. PO SCH (08:32)
--- NOTE | 2020-05-22 08:40 | SNU/HH DC ---
DISCHARGE ORDERS DISCHARGE INFORMATION: DISCHARGE DATE: May 18, 2020 FINAL DIAGNOSIS Problems Medical Problems: (1) Elevated troponin I level Status: Acute (2) Substernal precordial chest pain Status: Acute CONDITION ON DISCHARGE: Stable CODE STATUS: Code Status: Full SNF: SNF STAY <30 DAYS: Yes HOSPICE: HOSPICE: No HOSPICE EVAL & TREAT: No LTAC: ADMIT TO LTAC: No POST DISCHARGE ORDERS: ACTIVITY ORDERS: Activity as tolerated WEIGHT BEARING STATUS: As tolerated DIET AFTER DISCHARGE: ADA WOUND/INCISION CARE: Do not change dressing CHECKS AFTER DISCHARGE: CHECKS AFTER DISCHARGE: Check blood press - daily, Check blood sugar, ac/hs FOLLOW-UP: PHYSICIAN FOLLOW-UP: [facility] in 1 week ADDITIONAL FOLLOW-UP: Dr. Koenig in 4-6 weeks call [phone] TREATMENT/EQUIPMENT ORDERS: ADAPTIVE EQUIPMENT NEEDED: None Physical Therapy For: Evalulation/Treatment Occupational Therapy For: Evaluation/Treatment DISCHARGE MEDICATIONS: Home Meds Active Scripts Hydrocodone Bit/Acetaminophen (HYDROCODONE-APAP 5-325 ) 1 Tab Tablet, 1 TAB PO PRN Q6HRS PRN for PAIN for 5 Days, #20 TAB 0 Refills Prov:KATH CABALLERO MD 05/18/20 Amoxicillin/Potassium Clav (AMOX TR-K CLV 500-125 MG TAB) 1 Each Tablet, 1 TAB PO BID for uti for 10 Days, #20 TAB Prov:KATH CABALLERO MD 05/15/20 Aspirin (ASPIRIN EC) 81 Mg Tablet.dr, 1 TAB PO DAILY for CAD, #30 TAB 3 Refills Prov:YAYO RAJAN LEAD GENERATION SPECIALIST 02/21/20 Reported Medications Tamsulosin Hcl (FLOMAX) 0.4 Mg Cap.er.24h, 1 CAP PO HS for BPH, #30 CAP 11 Refills 05/09/20 Fluticasone Propionate (FLUTICASONE PROPIONATE NASAL SPRAY) 16 Gm [place].susp, 2 SPRAY NS DAILY for allergies, #1 INHALER 11 Refills 05/09/20 Linaclotide (LINZESS) 145 Mcg Capsule, 145 MCG PO 3X/WEEK for IRRITABLE BOWEL, CAP 05/09/20 Fexofenadine Hcl (FEXOFENADINE HCL) 180 Mg Tablet, 1 TAB PO DAILY for allergies, #30 TAB 5 Refills 05/09/20 Ascorbic Acid (VITAMIN C) 500 Mg Capsule.er, 1000 MG PO DAILY for supplement, CAP.SR 05/09/20 Multivits-Minerals/Fa/Lycopene (ONE DAILY FOR MEN TABLET) 1 Each Tablet, 1 TAB PO DAILY for supplement for 30 Days, #30 TAB 0 Refills 05/09/20 Ferrous Sulfate (IRON) 325 Mg Tablet, 65 MG PO DAILY for anemia, TAB 05/09/20 Allopurinol (ALLOPURINOL) 300 Mg Tablet, 1 TAB PO DAILY for Hyperunicemia, #30 TAB 5 Refills 05/09/20 Ergocalciferol (Vitamin D2) (VITAMIN D2) 50,000 Unit Capsule, 12553 UNIT PO WEEKLY Dose given on the Take on 05/29/16 Pantoprazole Sodium (PANTOPRAZOLE SODIUM ) 40 Mg Tablet.dr, 1 TAB PO DAILY, #30 TAB 3 Refills Gave this morning take tomorrow morning 04/30/16 Tizanidine Hcl (TIZANIDINE HCL) 4 Mg Tablet, 1 TAB PO QHS, #30 TAB Gave dose last night Take tonight before bedtime 05/31/15 Icosapent Ethyl (VASCEPA) 1 Gm Capsule, 1 GM PO Not given on this admission Take as previoulsy instructed 09/23/14 Atorvastatin Calcium (ATORVASTATIN CALCIUM) 20 Mg Tablet, 1 TAB PO HS for HLD, #30 TAB 5 Refills Gave last night Take tonight 09/23/14 Clopidogrel Bisulfate (CLOPIDOGREL) 75 Mg Tablet, 1 TAB PO DAILY, #90 TAB 1 Refill Gave this morning take tomorrow morning 09/23/14 Isosorbide Mononitrate (ISOSORBIDE MONONITRATE ER) 30 Mg Tab.er.24h, 60 MG PO DAILY, #30 TAB 5 Refills Gave this morning take tomorrow morning 09/23/14 Repaglinide (REPAGLINIDE) 1 Mg Tablet, 1 MG PO Not given on this admission Continue as previously instructed 09/23/14 Metoprolol Succinate (TOPROL XL) 50 Mg Tab.er.24h, 1 TAB PO DAILY, #30 TAB 5 Re fills Gave this morning take tomorrow morning 09/23/14 Discontinued Reported Medications Potassium Chloride (KLOR-CON M20) 20 Meq Tab.er.prt, 20 MEQ PO HS for low potassium, TAB.SR 05/09/20 Potassium Gluconate (POTASSIUM GLUCONATE) 99 Mg Tablet, 99 MG PO DAILY for low potassium, TAB 05/09/20 Metformin Hcl (METFORMIN HCL) 1,000 Mg Tablet, 1000 MG PO BIDWMEALS for ANTI- DIABETIC, TAB 0 Refills 05/09/20 Lisinopril (LISINOPRIL) 40 Mg Tablet, 1 TAB PO BID for HTN, #30 TAB 5 Refills 05/09/20 HERRERA MOON III DO May 22, 2020 08:40
[2020-05-22] MEDS: FLUTICASONE 50MCG/NASAL SPRAY 16GM BOTTLE. NS SCH (09:00)
[2020-05-22] MEDS: INSULIN LISPRO 300 UNITS/3 ML VIAL. SQ SCH ×2 (09:00→12:00)
[2020-05-22 11:00] VITALS: BP 113/73
--- NOTE | 2020-05-22 12:03 | NUR ---
Pt escorted out via wheelchair and family by transportation to [facility] with Cpap and all belongings. Education given to patient and family. 5LNC.
--- NOTE | 2020-05-22 12:14 | NUR ---
Gave report to DAVONTE John at [facility].
[2020-05-24] MEDS ORDERED: ERGOCALCIFEROL (VITAMIN D2) 50,000 UNIT CAPSULE. PO SCH (09:00)
[2020-05-31] MEDS ORDERED: APIX5TAB PO (16:35)
--- NOTE | 2020-06-05 12:07 | DS ---
DATE OF DISCHARGE: 05/22/2020 ADMISSION DIAGNOSES: Chest pain, mildly elevated troponin to 0.35, history of coronary artery disease with history of prior stent in 2013. DISCHARGE DIAGNOSES: Resolving chest pain, suspect chronic angina, history of coronary artery disease with previous stents, chronic kidney disease, obesity, history of chronic congestive heart failure, who has urinary tract infection, falls, benign prostatic hypertrophy, panniculitis, hypertension, and diabetes. CONSULTS: Cardiology. PROCEDURES: None. HOSPITAL COURSE: The patient is a pleasant middle-aged male, who is obese and basically has known coronary artery disease, presented with chest pain. We admitted the patient. We consulted Cardiology, did serial enzymes, serial EKGs. Over the next few days, he returned to his baseline, we discharged home. DISPOSITION: Home. ACTIVITY: As tolerated. DIET: Low sodium. MEDICATIONS: Please see the MRAD. TOTAL TIME: 32 minutes. JOIL Pati MOON DO DR: MELL/mariam JOB#: [id number] / [id number]
== END 2020-05-22 12:04 | DRG 246 ==
LOC: ER 20:31 → ED HOLD 23:00 → 2 SOUTH 05-17 00:34 → OBSVTOIN 05-17 09:30
PROVIDERS: ADMIT Internal Medicine; ATTEND Internal Medicine
PROC: 027034Z Dilation of Coronary Artery, One Artery with Drug-eluting Intraluminal Device, Percutaneous Approach (ICD-10-PCS; principal; 2020-05-17)
PROC: 4A023N7 Measurement of Cardiac Sampling and Pressure, Left Heart, Percutaneous Approach (ICD-10-PCS; 2020-05-17)
PROC: B211YZZ Fluoroscopy of Multiple Coronary Arteries using Other Contrast (ICD-10-PCS; 2020-05-17)
PROC: 5A09357 Assistance with Respiratory Ventilation, Less than 24 Consecutive Hours, Continuous Positive Airway Pressure (ICD-10-PCS; 2020-05-17)
PROC: 5A09357 Assistance with Respiratory Ventilation, Less than 24 Consecutive Hours, Continuous Positive Airway Pressure (ICD-10-PCS; 2020-05-18)
PROC: 5A09357 Assistance with Respiratory Ventilation, Less than 24 Consecutive Hours, Continuous Positive Airway Pressure (ICD-10-PCS; 2020-05-19)
PROC: 5A09357 Assistance with Respiratory Ventilation, Less than 24 Consecutive Hours, Continuous Positive Airway Pressure (ICD-10-PCS; 2020-05-20)
PROC: 5A09357 Assistance with Respiratory Ventilation, Less than 24 Consecutive Hours, Continuous Positive Airway Pressure (ICD-10-PCS; 2020-05-21)
PROC: 5A09357 Assistance with Respiratory Ventilation, Less than 24 Consecutive Hours, Continuous Positive Airway Pressure (ICD-10-PCS; 2020-05-22)
DX: I25.119 Atherosclerotic heart disease of native coronary artery with unspecified angina pectoris (principal); I50.33 Acute on chronic diastolic (congestive) heart failure; J96.01 Acute respiratory failure with hypoxia; I13.0 Hypertensive heart and chronic kidney disease with heart failure and stage 1 through stage 4 chronic kidney disease, or unspecified chronic kidney disease; N17.9 Acute kidney failure, unspecified; Z68.43 Body mass index [BMI] 50.0-59.9, adult; N39.0 Urinary tract infection, site not specified; Z20.828 Contact with and (suspected) exposure to other viral communicable diseases; D64.9 Anemia, unspecified; E11.22 Type 2 diabetes mellitus with diabetic chronic kidney disease; E66.01 Morbid (severe) obesity due to excess calories; E78.00 Pure hypercholesterolemia, unspecified; E78.5 Hyperlipidemia, unspecified; G47.33 Obstructive sleep apnea (adult) (pediatric); J45.909 Unspecified asthma, uncomplicated; K58.9 Irritable bowel syndrome, unspecified; M79.3 Panniculitis, unspecified; N18.9 Chronic kidney disease, unspecified; N40.0 Benign prostatic hyperplasia without lower urinary tract symptoms; G89.29 Other chronic pain; K21.9 Gastro-esophageal reflux disease without esophagitis; M19.90 Unspecified osteoarthritis, unspecified site; I77.1 Stricture of artery; E11.42 Type 2 diabetes mellitus with diabetic polyneuropathy; M54.5 Low back pain; I25.2 Old myocardial infarction; Z90.49 Acquired absence of other specified parts of digestive tract; Z79.02 Long term (current) use of antithrombotics/antiplatelets; Z79.82 Long term (current) use of aspirin; Z79.84 Long term (current) use of oral hypoglycemic drugs; Z79.899 Other long term (current) drug therapy; Z82.49 Family history of ischemic heart disease and other diseases of the circulatory system; Z95.5 Presence of coronary angioplasty implant and graft
CPT/HCPCS: 36415; 36600; 71045; 80048; 80053; 80061; 82805; 82962; 83690; 83880; 84484; 85007; 85025; 85347; 92928; 93005; 93308; 93458; 99152; 99153; C1769; C1887; C1892; G0378; G0379; J1644; J1650; J1815; J1940; J2250; J2270; J3010; J3490; Q9967; 97530-GO; 97530-GP; 97535-GO; U0003-CS

== ENCOUNTER 2020-05-24 11:44 | Inpatient (IN) | payer MEDICARE ==
[~2020-05-24] VITALS: Ht 185.4 cm; Wt 187.6 kg
[~2020-05-24 11:44] MED LIST changes: +HYDR-2761 PO
[2020-05-24] MEDS ORDERED: NITROGLYCERIN SUBLINGUAL 0.4 MG BOTTLE OF 25. SL PRN (12:00)
--- NOTE | 2020-05-24 12:00 | PHYS DOC ---
Past Medical History Past Medical History: CAD, Diabetes-Type II, GERD, High Cholesterol, Heart Disease, Hypertension, CT, Other Additional Past Medical Histor: CHRONIC BACK PAIN, constipation Past Surgical History: Cholecystectomy, Lumbar Laminectomy Additional Past Surgical Histo: cardiac stents 12/15, 4 back surgeries, 1 neck surgery Smoking Status: Never Smoker Alcohol Use: None Drug Use: None General Adult HPI: HPI: Patient is a 69 year old male patient presenting with chest discomfort shortness of breath. Patient reports he had recently seen at this facility for RCA stenting, follow some chest discomfort. States he has been at the nursing for the last 2 days and has not felt well since that time. States that he has had a bit of worsening shortness of breath, has felt like he has a "Chevy parked on my chest ". Report from SNF states the patient is normally on 3 to 4 L oxygen, maintaining SPO2 well, however today has had increased oxygen hunger, with oxygen 80% on 6 L nasal cannula. Patient does state he feels a little more short of breath today than usual, states his discomfort is unchanged. Denies any nausea. Patient states he felt a little dizzy after standing up earlier, however states this is improved. Recently had negative COVID test. Does state he takes aspirin each day, took his aspirin this morning, is also taking a unknown blood thinner Review of Systems: Review of Systems: Constitutional: Denies fever or chills. [] Eyes: Denies change in visual acuity. [] HENT: Denies nasal congestion or sore throat. [] Respiratory: Denies cough. Reports shortness of breath Cardiovascular: Reports chest pressure, feels like something on his chest. Denies any increased edema GI: Denies abdominal pain, nausea, vomiting, bloody stools or diarrhea. [] : Denies dysuria. [] Musculoskeletal: Denies back pain or joint pain. [] Integument: Denies rash. [] Neurologic: Denies headache, focal weakness or sensory changes. Does report he had transient dizziness earlier in the day [] Endocrine: Denies polyuria or polydipsia. [] Lymphatic: Denies swollen glands. [] Psychiatric: Denies depression or anxiety. [] Heart Score: HEART Score for Chest Pain: HEART Score for Chest Pain Response (Comments) Value History Highly Suspicious 2 Age > 65 2 Risk Factors >3 Risk Factors or Hx CAD 2 Total 6 Risk Factors: Risk Factors: DM, Current or recent (<one month) smoker, HTN, HLP, family history of CAD, obesity. Risk Scores: Score 0 - 3: 2.5% MACE over next 6 weeks - Discharge Home Score 4 - 6: 20.3% MACE over next 6 weeks - Admit for Clinical Observation Score 7 - 10: 72.7% MACE over next 6 weeks - Early Invasive Strategies Allergies: Allergies: Allergies Coded Allergies Type Severity Reaction Last Updated Verified No Known Drug Allergies 06/11/16 No Physical Exam: PE: Constitutional: Obese, well nourished, mild acute distress, non-toxic appearance. [] HENT: Normocephalic, atraumatic, bilateral external ears normal, oropharynx moist, no oral exudates, nose normal. [] Eyes: PERRLA, EOMI, conjunctiva normal, no discharge. [] Neck: Normal range of motion, no tenderness, supple, no stridor. [] Cardiovascular:Heart rate regular rhythm, no murmur [] Lungs & Thorax: Bilateral breath sounds coarse rales noted bilaterally [] Abdomen: Bowel sounds normal, soft, no tenderness, no masses, no pulsatile masses. [] Skin: Warm, dry, no erythema, no rash. [] Back: No tenderness, no CVA tenderness. [] Extremities: No tenderness, no cyanosis, no clubbing, ROM intact, no edema. [] Neurologic: Alert and oriented X 3, normal motor function, normal sensory function, no focal deficits noted. [] Psychologic: Affect normal, judgement normal, mood normal. [] EKG: EKG: no STEMI per Dr Jacobo. Sinus rhythm, QTc prolongation at 474ms. @1204[] Radiology/Procedures: Radiology/Procedures: []Findings: Mild interstitial thickening. No consolidation. No pleural effusion. No pneumothorax. Normal heart size. Postoperative changes lower cervical spine. Impression: 1. Mild interstitial thickening, may relate to chronic interstitial changes although early pulmonary edema is possible. Electronically signed by: Junito Kelley DO (05/24/2020 1:03 PM) [id number] Findings: Ventilation imaging is not performed due to aerosolized droplet precautions. Perfusion images demonstrate multiple moderate and large segmental defects bilaterally. For example there is a defect of most of the right lower lobe. IMPRESSION: Intermediate to high probability for pulmonary embolus. Findings discussed with KARINA CUELLAR in the ED at 05/24/2020 2:09 PM. FOR INTERNAL CODING PURPOSES Critical result: RESULT CODE: (C) Electronically signed by: Grzegorz Lundberg MD (05/24/2020 2:11 PM) [id number] Course & Med Decision Making: Course & Med Decision Making Pertinent Labs and Imaging studies reviewed. (See chart for details) [] Following central concern administration, patient does report his chest discomfort is gone from a 7 to a 2. Does report however he is having some additional generalized discomfort, requesting pain medication. Reviewed ABG results, reviewed labs, reviewed imaging. Does appear patient does have an onset of CHF likely causing his increased dyspnea today with air hunger. Did not notice furosemide on his discharge medication list, however he had received a dose of furosemide during his last inpatient stay. Have administered a dose here. Discussed admission with patient, in agreement. Will try to reduce oxygen to evaluate for decreased demand, reducing Non Rebreather to 10 lpm at this time. Maintaining SpO2 92% Discussed admission with Dr. Milian, in agreement with plan for admission Dragon Disclaimer: Dragon Disclaimer: This electronic medical record was generated, in whole or in part, using a voice recognition dictation system. Departure Departure Impression: Primary Impression: Congestive heart failure (CHF) Qualified Codes: I50.9 - Heart failure, unspecified Additional Impressions: Acute and chronic respiratory failure with hypoxia Chest pressure Disposition: ADMITTED INPATIENT Admitting Physician: HIMTena Condition: STABLE Referrals: Jessica WHITT MD (PCP) Justicifation of Admission Dx: Justifications for Admission: Justification of Admission Dx: Yes CHF: Hemodynamic Instability Angina: Symp at Rest KARINA CUELLAR APRN May 24, 2020 12:00
[2020-05-24 12:32] LABS: BASO # 0.1 x10^3/uL (0.0-0.2); BASO % 1 % (0-3); EOS # 0.1 x10^3/uL (0.0-0.7); EOS % 0 % (0-3); HEMOGLOBIN 13.7 g/dL (13.0-17.5); LYMPH # 0.8 x10^3/uL (1.0-4.8); LYMPH % 6 % (24-48); MEAN CORPUSCULAR HEMOGLOBIN 32 pg (25-35); MEAN CORPUSCULAR HGB CONC 33 g/dL (31-37); MEAN CORPUSCULAR VOLUME 94 fL (79-100); MONO # 0.8 x10^3/uL (0.0-1.1); MONO % 5 % (0-9); NEUT % 88 % (31-73); PLATELET COUNT 142 x10^3/uL (140-400); RED BLOOD COUNT 4.34 x10^6/uL (4.30-5.70); RED CELL DISTRIBUTION WIDTH 15.5 % (11.5-14.5); WHITE BLOOD COUNT 14.8 x10^3/uL (4.0-11.0)
[2020-05-24 12:37] LABS: BILIRUBIN,URINE NEGATIVE (NEG); CLARITY,URINE CLOUDY; COLOR,URINE YELLOW; NITRITE,URINE NEGATIVE (NEG); PROTEIN,URINE 30 mg/dL (NEG-TRACE)
[2020-05-24 12:40] LABS: PROTHROMBIN TIME PATIENT 14.9 SEC (11.7-14.0)
[2020-05-24] MEDS ORDERED: HYDROcodone/APAP 5/325MG 1 TAB TABLET PO ONE (12:45)
[2020-05-24 12:48] LABS: HYALINE CASTS, URINE MANY /HPF; SQUAMOUS EPITHELIAL CELL,UR FEW /LPF
[2020-05-24 12:49] LABS: BACTERIA,URINE 0 /HPF (0-FEW)
[2020-05-24 12:54] LABS: CALCIUM 8.8 mg/dL (8.5-10.1); CREATININE 1.9 mg/dL (0.7-1.3); GFR 35.5; POTASSIUM 4.1 mmol/L (3.5-5.1)
[2020-05-24 12:59] LABS: ALBUMIN 3.4 g/dL (3.4-5.0); ALBUMIN/GLOBULIN RATIO 0.9 (1.0-1.7); MAGNESIUM 2.4 mg/dL (1.8-2.4); TOTAL BILIRUBIN 0.7 mg/dL (0.2-1.0); TOTAL PROTEIN 7.2 g/dL (6.4-8.2)
[2020-05-24] MEDS ORDERED: FUROSEMIDE 40 MG/4 ML VIAL. IVP ONE (13:00)
--- NOTE | 2020-05-24 13:00 | EKG ---
[facility] [address] [place] [address] Test Date: 2020-05-24 Test Time: 12:01:12 Pat Name: HARPREET HERR Department: Room: Gender: M [place]: : 1950 Requested By: KARINA CUELLAR Order Number: [id number] Reading MD: Measurements Intervals [place] Rate: 90 P: 46 UT: 186 QRS: 60 QRSD: 80 T: 34 QT: 384 QTc: 474 Interpretive Statements SINUS RHYTHM QRS(T) CONTOUR ABNORMALITY CONSISTENT WITH ANTEROSEPTAL INFARCT AGE UNDETERMINED ABNORMAL ECG RI6.02 No previous ECG available for comparison
--- NOTE | 2020-05-24 13:06 | RAD ---
CHEST AP ONLY History: Reason: SOA, chest pain / Spl. Instructions: / History: Comparison: May 20, 2020 Findings: Mild interstitial thickening. No consolidation. No pleural effusion. No pneumothorax. Normal heart size. Postoperative changes lower cervical spine. Impression: 1. Mild interstitial thickening, may relate to chronic interstitial changes although early pulmonary edema is possible. Electronically signed by: Junito Kelley DO (05/24/2020 1:03 PM) [id number]
[2020-05-24 13:11] LABS: BASE EXCESS ABG -6 mmol/L (-3-3); HCO3 ABG 17 mmol/L (21-28); PCO2 ABG 28 mmHg (35-46); PO2 ABG 62 mmHg (65-108); SAT O2 ABG 91 % (92-99)
[2020-05-24 13:17] LABS: % BANDS 3 % (0-9); % EOS 2 % (0-5); % LYMPHS 5 % (24-48); % MONOS 5 % (0-10); % SEGS 85 % (35-66)
[2020-05-24 13:18] LABS: ANISOCYTOSIS SLIGHT; PLT ESTIMATE ADEQUATE (ADEQUATE)
[2020-05-24 13:24] LABS: FIO2 ABG 100
--- NOTE | 2020-05-24 14:14 | RAD ---
NUCLEAR MEDICINE PERFUSION ONLY SCAN History: Shortness of air, hypoxia. Comparison: AP chest, same day. Technique: Perfusion portion performed after intravenous administration of 5.5 mCi Technetium 99m MAA. Multiple projection planar images of the lungs were obtained. Findings: Ventilation imaging is not performed due to aerosolized droplet precautions. Perfusion images demonstrate multiple moderate and large segmental defects bilaterally. For example there is a defect of most of the right lower lobe. IMPRESSION: Intermediate to high probability for pulmonary embolus. Findings discussed with KARINA CUELLAR in the ED at 05/24/2020 2:09 PM. FOR INTERNAL CODING PURPOSES Critical result: RESULT CODE: (C) Electronically signed by: Grzegorz Lundberg MD (05/24/2020 2:11 PM) [id number]
[2020-05-24] MEDS ORDERED: MORPHINE SULFATE 2 MG/ML VIAL. IV ONE (14:30)
--- NOTE | 2020-05-24 14:47 | PDOC1 ---
History and Physical Date of Admission Date of Admission DATE: 05/24/20 TIME: 14:42 Identification/Chief Complaint Chief Complaint Shortness of breath, hypoxia Source Source: Patient History of Present Illness History of Present Illness Mr Drake is a 69 yo M w/ PMHx CAD s/p stents, DM2, GERD, HLD, HTN, chronic back pain, constipation, and recent diagnosis of BPH who was recently seen at this facility for RCA stenting returns from SNF today c/o worsening shortness of breath and heavy chest pressure. No leg swelling or leg pain. He was recently admitted 05/09-05/16 for UTI/prostatitis as well as sciatica, then readmitted with NSTEMI and RCA stenting on 05/17, discharged 05/22 to SNF. Report from SNF states the patient was on 3 to 4 L oxygen since his recent cardiac cath but today noted with oxygen 80% on 6 L nasal cannula. Patient states he felt a little dizzy after standing up earlier, however states this is improved. Recently had negative COVID test. CXR with bilateral interstitial infiltrate pattern. Pulmonary perfusion imaging was performed without ventilatory scan and was interpreted by radiology as high probability for PE given the bilateral perfusion defects, on chest x-ray it appears that the same pattern as the interstitial infiltrate however. Labs significant for WBC 14.8, Hb 13.7 platelets 142, NA 138, K4.1, BUN 49, CR 1.9, glucose 204, lactic acid 3.3, INR 1.2, AST 45, BNP 4329, troponin 0 0.042. EKG with QRS consistent with prior inferolateral infarct. ED had given lovenox for concern for PE. Ramirez placed and lasix given. Admitted for further care under investigation for COVID 19. Past Medical History Cardiovascular: CAD, HTN, [place], Hyperlipidemia, Other Pulmonary: Asthma, Other CENTRAL NERVOUS SYSTEM: Periperal neuropathy GI: GERD, Irritable bowel disease Heme/Onc: Anemia NOS Hepatobiliary: No pertinent hx Psych: Addictions Musculoskeletal: low back pain, Osteoarthritis, Other Rheumatologic: No pertinent hx Infectious disease: No pertinent hx Renal/: UTI Endocrine: Diabetes Past Surgical History Past Surgical History: Cholecystectomy, Tonsillectomy, Other Family History Family History: Coronary Artery Disease Social History ALCOHOL: none Drugs: None Current Medications Current Medications Current Medications Nitroglycerin (Nitrostat) 0.4 mg PRN Q5MIN PRN SL CHEST PAIN Last administered on 05/24/20at 12:22; Start 05/24/20 at 12:00 Acetaminophen/ Hydrocodone Bitart (Lortab 5/325) 1 tab 1X ONCE PO Last administered on 05/24/20at 12:56; Start 05/24/20 at 12:45; Stop 05/24/20 at 12:46; Status DC Furosemide (Lasix) 40 mg 1X ONCE IVP ; Start 05/24/20 at 13:00; Stop 05/24/20 at 13:01; Status DC Enoxaparin Sodium (Lovenox 100mg Syringe) 100 mg 1X ONCE SQ ; Start 05/24/20 at 14:15; Stop 05/24/20 at 14:29; Status DC Morphine Sulfate (Morphine Sulfate) 2 mg 1X ONCE IV ; Start 05/24/20 at 14:30; Stop 05/24/20 at 14:37; Status DC Active Scripts Active Hydrocodone-Apap 5-325 (Hydrocodone Bit/Acetaminophen) 1 Tab Tablet 1 Tab PO PRN Q6HRS PRN 5 Days Amox Tr-K Clv 500-125 Mg Tab (Amoxicillin/Potassium Clav) 1 Each Tablet 1 Tab PO BID 10 Days Aspirin Ec (Aspirin) 81 Mg Tablet.dr 1 Tab PO DAILY Reported Flomax (Tamsulosin Hcl) 0.4 Mg Cap.er.24h 1 Cap PO HS Fluticasone Propionate Nasal Lawrence (Fluticasone Propionate) 16 Gm Lawrence.susp 2 Lawrence NS DAILY Linzess (Linaclotide) 145 Mcg Capsule 145 Mcg PO 3X/WEEK Fexofenadine Hcl 180 Mg Tablet 1 Tab PO DAILY Vitamin C (Ascorbic Acid) 500 Mg Capsule.er 1,000 Mg PO DAILY One Daily For Men Tablet (Multivits-Minerals/Fa/Lycopene) 1 Each Tablet 1 Tab PO DAILY 30 Days Iron (Ferrous Sulfate) 325 Mg Tablet 65 Mg PO DAILY Allopurinol 300 Mg Tablet 1 Tab PO DAILY Vitamin D2 (Ergocalciferol (Vitamin D2)) 50,000 Unit Capsule 50,000 Unit PO WEEKLY Dose given on the Take on Pantoprazole Sodium (Pantoprazole Sodium) 40 Mg Tablet.dr 1 Tab PO DAILY Gave this morning take tomorrow morning Tizanidine Hcl 4 Mg Tablet 1 Tab PO QHS Gave dose last night Take tonight before bedtime Vascepa (Icosapent Ethyl) 1 Gm Capsule 1 Gm PO Not given on this admission Take as previoulsy instructed Atorvastatin Calcium 20 Mg Tablet 1 Tab PO HS Gave last night Take tonight Clopidogrel (Clopidogrel Bisulfate) 75 Mg Tablet 1 Tab PO DAILY Gave this morning take tomorrow morning Isosorbide Mononitrate Er (Isosorbide Mononitrate) 30 Mg Tab.er.24h 60 Mg PO DAILY Gave this morning take tomorrow morning Repaglinide 1 Mg Tablet 1 Mg PO Not given on this admission Continue as previously instructed Toprol Xl (Metoprolol Succinate) 50 Mg Tab.er.24h 1 Tab PO DAILY Gave this morning take tomorrow morning Allergies Allergies: Coded Allergies: No Known Drug Allergies (Unverified , 06/11/16) ROS General: YES: Fatigue, Malaise; No: Chills, Night Sweats, Appetite, Other PSYCHOLOGICAL ROS: No: Anxiety, Behavioral Disorder, Concentration difficultie, Decreased libido, Depression, Disorientation, Hallucinations, Hostility, Irritablity, Memory difficulties, Mood Swings, Obsessive thoughts, Physical abu se, Sexual abuse, Sleep disturbances, Suicidal ideation, Other Eyes: No Blurry vision, No Decreased vision, No Double vision, No Dry eyes, No Excessive tearing, No Eye Pain, No Itchy Eyes, No Loss of vision, No Photophobia, No Scotomata, No Uses contacts, No Uses glasses, No Other HEENT: No: Heacaches, Visual Changes, Hearing change, Nasal congestion, Nasal discharge, Oral lesions, Sinus pain, Sore Throat, Epistaxis, Sneezing, Snoring, Tinnitus, Vertigo, Vocal changes, Other ALLERGY AND IMMUNOLOGY: No: Hives, Insect Bite Sensitivity, Itchy/Watery Eyes, Nasal Congestion, Post Nasal Drip, Seasonal Allergies, Other Hematological and Lymphatic: No: Bleeding Problems, Blood Clots, Blood Transfusions, Brusing, Night Sweats, Pallor, Swollen Lymph Nodes, Other ENDOCRINE: No: Breast Changes, Galactorrhea, Hair Pattern Changes, Hot Flashes, Malaise/lethargy, Mood Swings, Palpitations, Polydipsia/polyuria, Skin Changes, Temperature Intolerance, Unexpected Weight Changes, Other Breast: No New/Changing Breast Lumps, No Nipple changes, No Nipple discharge, No Other Respiratory: YES: Cough, Pleuritic Pain, Shortness of breath, SOB with excertion, Tachypnea; No: Hemoptysis, Orthopnea, Sputum Changes, Stridor, Wheezing, Other Cardiovascular: yes Chest Pain, yes Edema; No Palpitations, No Orthopnea, No Paroxysmal Noc. Dyspnea, No Lt Headedness, No Other Gastrointestinal: No Nausea, No Vomiting, No Abdominal Pain, No Diarrhea, No Constipation, No Melena, No Hematochezia, No Other Genitourinary: No Dysuria, No Frequency, No Incontinence, No Hematuria, No Retention, No Discharge, No Urgency, No Pain, No Flank Pain, No Other, No , No , No , No , No , No , No Musculoskeletal: Yes Gait Disturbance; No Joint Pain, No Joint Stiffness, No Joint Swelling, No Muscle Pain, No Muscular Weakness, No Pain In:, No Swelling In:, No Other Neurological: No Behavorial Changes, No Bowel/Bladder ControlChng, No Confusion, No Dizziness, No Gait Disturbance, No Headaches, No Impaired Coord/balance, No Memory Loss, No Numbness/Tingling, No Seizures, No Speech Problems, No Tremors, No Visual Changes, No Weakness, No Other Skin: No Dry Skin, No Eczema, No Hair Changes, No Lumps, No Mole Changes, No Mottling, No Nail Changes, No Pruritus, No Rash, No Skin Lesion Changes, No Other, No Acne Physical Exam General: Alert, Oriented X3, Cooperative, moderate distress HEENT: Atraumatic, PERRLA, EOMI, Mucous membr. moist/pink Lungs: Other (rhonchi bilaterally) Heart: S1S2, RRR, no thrills, no rubs, no gallops, no murmurs Abdomen: Normal bowel sounds, Soft, No tenderness, No hepatosplenomegaly, No masses Rectal Exam: not examined Extremities: No clubbing, No cyanosis, No edema, Normal pulses, No tenderness/ swelling Skin: No rashes, No breakdown, No significant lesion Neuro: Normal speech, Strength at 5/5 X4 ext, Normal tone, Sensation intact, Cranial nerves 3-12 NL, Reflexes 2+ Psych/Mental Status: Mental status NL, Mood NL Vitals Vitals Vital Signs Date Time Temp Pulse Resp B/P (MAP) Pulse Ox O2 Delivery O2 Flow Rate FiO2 05/24/20 13:05 NonRebreather Mask 15.0 05/24/20 12:22 87 126/64 05/24/20 11:54 97.7 30 92 97.7 Labs Labs Laboratory Tests Test 05/24/20 12:17 05/24/20 12:22 05/24/20 13:05 White Blood Count 14.8 x10^3/uL (4.0-11.0) Red Blood Count 4.34 x10^6/uL (4.30-5.70) Hemoglobin 13.7 g/dL (13.0-17.5) Hematocrit 41.0 % (39.0-53.0) Mean Corpuscular Volume 94 fL (79-100) Mean Corpuscular Hemoglobin 32 pg (25-35) Mean Corpuscular Hemoglobin Concent 33 g/dL (31-37) Red Cell Distribution Width 15.5 % (11.5-14.5) Platelet Count 142 x10^3/uL (140-400) Neutrophils (%) (Auto) 88 % (31-73) Lymphocytes (%) (Auto) 6 % (24-48) Monocytes (%) (Auto) 5 % (0-9) Eosinophils (%) (Auto) 0 % (0-3) Basophils (%) (Auto) 1 % (0-3) Neutrophils # (Auto) 13.0 x10^3/uL (1.8-7.7) Lymphocytes # (Auto) 0.8 x10^3/uL (1.0-4.8) Monocytes # (Auto) 0.8 x10^3/uL (0.0-1.1) Eosinophils # (Auto) 0.1 x10^3/uL (0.0-0.7) Basophils # (Auto) 0.1 x10^3/uL (0.0-0.2) Segmented Neutrophils % 85 % (35-66) Band Neutrophils % 3 % (0-9) Lymphocytes % 5 % (24-48) Monocytes % 5 % (0-10) Eosinophils % 2 % (0-5) Platelet Estimate Adequate (ADEQUATE) Anisocytosis Slight Prothrombin Time 14.9 SEC (11.7-14.0) Prothromb Time International Ratio 1.2 (0.8-1.1) Sodium Level 138 mmol/L (136-145) Potassium Level 4.1 mmol/L (3.5-5.1) Chloride Level 101 mmol/L (98-107) Carbon Dioxide Level 20 mmol/L (21-32) Anion Gap 17 (6-14) Blood Urea Nitrogen 44 mg/dL (8-26) Creatinine 1.9 mg/dL (0.7-1.3) Estimated GFR (Cockcroft-Gault) 35.5 BUN/Creatinine Ratio 23 (6-20) Glucose Level 214 mg/dL (70-99) Lactic Acid Level 3.3 mmol/L (0.4-2.0) Calcium Level 8.8 mg/dL (8.5-10.1) Magnesium Level 2.4 mg/dL (1.8-2.4) Total Bilirubin 0.7 mg/dL (0.2-1.0) Aspartate Amino Transf (AST/SGOT) 45 U/L (15-37) Alanine Aminotransferase (ALT/SGPT) 51 U/L (16-63) Alkaline Phosphatase 130 U/L (46-116) Troponin I Quantitative 0.042 ng/mL (0.000-0.055) QJ-Tuy-I-Type Natriuretic Peptide 4329 pg/mL (0-124) Total Protein 7.2 g/dL (6.4-8.2) Albumin 3.4 g/dL (3.4-5.0) Albumin/Globulin Ratio 0.9 (1.0-1.7) Urine Collection Type Unknown Urine Color Yellow Urine Clarity Cloudy Urine pH 5.0 (<5.0-8.0) Urine Specific [place] 1.020 (1.000-1.030) Urine Protein 30 mg/dL (NEG-TRACE) Urine Glucose (UA) Negative mg/dL (NEG) Urine Ketones (Stick) Negative mg/dL (NEG) Urine Blood Trace (NEG) Urine Nitrite Negative (NEG) Urine Bilirubin Negative (NEG) Urine Urobilinogen Dipstick 1.0 mg/dL (0.2 mg/dL) Urine Leukocyte Esterase Trace (NEG) Urine RBC 6-10 /HPF (0-2) Urine WBC 11-20 /HPF (0-4) Urine Squamous Epithelial Cells Few /LPF Urine Transitional Epithelial Cells Few /LPF Urine Bacteria 0 /HPF (0-FEW) Urine Hyaline Casts Many /HPF Urine Mucus Marked /LPF O2 Saturation 91 % (92-99) Arterial Blood pH 7.42 (7.35-7.45) Arterial Blood pCO2 at Patient Temp 28 mmHg (35-46) Arterial Blood pO2 at Patient Temp 62 mmHg (65-108) Arterial Blood HCO3 17 mmol/L (21-28) Arterial Blood Base Excess -6 mmol/L (-3-3) FiO2 100 Laboratory Tests Test 05/24/20 12:17 05/24/20 12:22 05/24/20 13:05 White Blood Count 14.8 x10^3/uL (4.0-11.0) Red Blood Count 4.34 x10^6/uL (4.30-5.70) Hemoglobin 13.7 g/dL (13.0-17.5) Hematocrit 41.0 % (39.0-53.0) Mean Corpuscular Volume 94 fL (79-100) Mean Corpuscular Hemoglobin 32 pg (25-35) Mean Corpuscular Hemoglobin Concent 33 g/dL (31-37) Red Cell Distribution Width 15.5 % (11.5-14.5) Platelet Count 142 x10^3/uL (140-400) Neutrophils (%) (Auto) 88 % (31-73) Lymphocytes (%) (Auto) 6 % (24-48) Monocytes (%) (Auto) 5 % (0-9) Eosinophils (%) (Auto) 0 % (0-3) Basophils (%) (Auto) 1 % (0-3) Neutrophils # (Auto) 13.0 x10^3/uL (1.8-7.7) Lymphocytes # (Auto) 0.8 x10^3/uL (1.0-4.8) Monocytes # (Auto) 0.8 x10^3/uL (0.0-1.1) Eosinophils # (Auto) 0.1 x10^3/uL (0.0-0.7) Basophils # (Auto) 0.1 x10^3/uL (0.0-0.2) Segmented Neutrophils % 85 % (35-66) Band Neutrophils % 3 % (0-9) Lymphocytes % 5 % (24-48) Monocytes % 5 % (0-10) Eosinophils % 2 % (0-5) Platelet Estimate Adequate (ADEQUATE) Anisocytosis Slight Prothrombin Time 14.9 SEC (11.7-14.0) Prothromb Time International Ratio 1.2 (0.8-1.1) Sodium Level 138 mmol/L (136-145) Potassium Level 4.1 mmol/L (3.5-5.1) Chloride Level 101 mmol/L (98-107) Carbon Dioxide Level 20 mmol/L (21-32) Anion Gap 17 (6-14) Blood Urea Nitrogen 44 mg/dL (8-26) Creatinine 1.9 mg/dL (0.7-1.3) Estimated GFR (Cockcroft-Gault) 35.5 BUN/Creatinine Ratio 23 (6-20) Glucose Level 214 mg/dL (70-99) Lactic Acid Level 3.3 mmol/L (0.4-2.0) Calcium Level 8.8 mg/dL (8.5-10.1) Magnesium Level 2.4 mg/dL (1.8-2.4) Total Bilirubin 0.7 mg/dL (0.2-1.0) Aspartate Amino Transf (AST/SGOT) 45 U/L (15-37) Alanine Aminotransferase (ALT/SGPT) 51 U/L (16-63) Alkaline Phosphatase 130 U/L (46-116) Troponin I Quantitative 0.042 ng/mL (0.000-0.055) IG-Kfb-M-Type Natriuretic Peptide 4329 pg/mL (0-124) Total Protein 7.2 g/dL (6.4-8.2) Albumin 3.4 g/dL (3.4-5.0) Albumin/Globulin Ratio 0.9 (1.0-1.7) Urine Collection Type Unknown Urine Color Yellow Urine Clarity Cloudy Urine pH 5.0 (<5.0-8.0) Urine Specific [place] 1.020 (1.000-1.030) Urine Protein 30 mg/dL (NEG-TRACE) Urine Glucose (UA) Negative mg/dL (NEG) Urine Ketones (Stick) Negative mg/dL (NEG) Urine Blood Trace (NEG) Urine Nitrite Negative (NEG) Urine Bilirubin Negative (NEG) Urine Urobilinogen Dipstick 1.0 mg/dL (0.2 mg/dL) Urine Leukocyte Esterase Trace (NEG) Urine RBC 6-10 /HPF (0-2) Urine WBC 11-20 /HPF (0-4) Urine Squamous Epithelial Cells Few /LPF Urine Transitional Epithelial Cells Few /LPF Urine Bacteria 0 /HPF (0-FEW) Urine Hyaline Casts Many /HPF Urine Mucus Marked /LPF O2 Saturation 91 % (92-99) Arterial Blood pH 7.42 (7.35-7.45) Arterial Blood pCO2 at Patient Temp 28 mmHg (35-46) Arterial Blood pO2 at Patient Temp 62 mmHg (65-108) Arterial Blood HCO3 17 mmol/L (21-28) Arterial Blood Base Excess -6 mmol/L (-3-3) FiO2 100 Images Images CXR: Mild interstitial thickening. No consolidation. No pleural effusion. No pneumothorax. Normal heart size. Postoperative changes lower cervical spine. Impression: 1. Mild interstitial thickening, may relate to chronic interstitial changes although early pulmonary edema is possible. Pulmonary perfusion imaging: Ventilation imaging is not performed due to aerosolized droplet precautions. Perfusion images demonstrate multiple moderate and large segmental defects bilaterally. For example there is a defect of most of the right lower lobe. IMPRESSION: Intermediate to high probability for pulmonary embolus. VTE Prophylaxis Ordered VTE Prophylaxis Devices: Yes VTE Pharmacological Prophylaxi: Yes Assessment/Plan Assessment/Plan A/P: Chest pain - likely multifactorial, will trend troponins, he has significant CAD. less likely PE. Cardiology consult. If troponin increases will initiate heparin GTT Acute hypoxic respiratory failure - likely 2/2 acute CHF, however, with his healthcare exposure COVID testing is indicated Shortness of breath - likely from above. will check procalcitonin as he is also at risk for HCAP CAD - s/p previous PCI/stents to the LCx and 1st diagonal. s/p PCI/JOELLE to the RCA 05/17/20 Acute on chronic diastolic CHF; c/o dyspnea and CXR with vascular congestion. IV lasix, strict i/o, ramirez placed Hypertension; controlled Hyperlipiemia; statin SONIYA on CKD - Cr 1.9. This was certainly vasomotor nephropathy SUSANA with CPAP BPH - cont meds HTN - controlled Morbid obesity with SUSANA: CPAP at home DM2 - sliding scale FEN - Cardiac PPX - heparin FULL CODE Dispo - inpatient Justicifation of Admission Dx: Justifications for Admission: Justification of Admission Dx: Yes Angina: [facility] TIMA LEDESMA MD May 24, 2020 14:47
[2020-05-24] MEDS ORDERED: DEXTROSE 50% 25 GM / 50ML DISP.SYRIN. IV PRN (18:15)
[2020-05-24] MEDS: INSULIN LISPRO 300 UNITS/3 ML VIAL. SQ SCH (21:00)
[2020-05-24] MEDS: ATORVASTATIN CALCIUM 20 MG TABLET PO SCH (22:01)
[2020-05-24] MEDS: TAMSULOSIN 0.4 MG CAP.ER.24H. PO SCH (22:01)
[2020-05-24] MEDS: MORPHINE SULFATE 4 MG/ML VIAL. IV PRN (22:02)
[2020-05-24 23:00] VITALS: BP 130/60
--- NOTE | 2020-05-25 02:39 | NUR ---
patient arrived to unit at approx 1999 on 05/24 accompanied by ED nurse and tech. Patient complains of 8/10 chest discomfort. pt 85% on 5L NC. after settling patient in still could not get O2 sat above 97%, pt is mouth breathing. Spoke with RT, placed patient on Venti mask 50% 15 L- O2 sat improved 94%. Pt states " I do not want to go back to [facility], they are the ones that did this to me". SW consult placed. Oriented patient to unit, call light in reach, bed in low locked position. reminded patient to call for assistance when needed. will continue to monitor.
[2020-05-25 03:00] VITALS: BP 124/60
[2020-05-25 03:51] LABS: BASO % 0 % (0-3); EOS # 0.2 x10^3/uL (0.0-0.7); EOS % 1 % (0-3); HEMATOCRIT 41.4 % (39.0-53.0); HEMOGLOBIN 13.5 g/dL (13.0-17.5); LYMPH # 1.9 x10^3/uL (1.0-4.8); LYMPH % 16 % (24-48); MEAN CORPUSCULAR HEMOGLOBIN 32 pg (25-35); MEAN CORPUSCULAR HGB CONC 33 g/dL (31-37); MEAN CORPUSCULAR VOLUME 97 fL (79-100); MONO # 0.9 x10^3/uL (0.0-1.1); MONO % 8 % (0-9); NEUT # 8.7 x10^3/uL (1.8-7.7); NEUT % 75 % (31-73); PLATELET COUNT 112 x10^3/uL (140-400); RED BLOOD COUNT 4.28 x10^6/uL (4.30-5.70); RED CELL DISTRIBUTION WIDTH 15.7 % (11.5-14.5); WHITE BLOOD COUNT 11.7 x10^3/uL (4.0-11.0)
[2020-05-25 04:02] LABS: CALCIUM 9.1 mg/dL (8.5-10.1); CREATININE 1.7 mg/dL (0.7-1.3); GFR 40.4
[2020-05-25 07:00] VITALS: BP 138/70
[2020-05-25] MEDS ORDERED: PANTOPRAZOLE 40 MG TABLET.DR. PO SCH (07:30)
--- NOTE | 2020-05-25 08:03 | PDOC ---
PROGRESS NOTES Chief Complaint Chief Complaint A/P: Chest pain - likely multifactorial, troponins trended down, he has significant CAD. likely PE. Cardiology consult. will initiate heparin GTT Acute hypoxic respiratory failure - likely 2/2 acute CHF, however, with his healthcare exposure COVID testing is indicated Shortness of breath - likely from above. will check procalcitonin as he is also at risk for HCAP CAD - s/p previous PCI/stents to the LCx and 1st diagonal. s/p PCI/JOELLE to the RCA 05/17/20 Acute on chronic diastolic CHF; c/o dyspnea and CXR with vascular congestion. IV lasix, strict i/o, ramirez placed Hypertension; controlled Hyperlipiemia; statin SONIYA on CKD - Cr 1.9. This was certainly vasomotor nephropathy SUSANA with CPAP BPH - cont meds HTN - controlled Morbid obesity with SUSANA: CPAP at home DM2 - sliding scale FEN - Cardiac PPX - heparin FULL CODE Dispo - inpatient History of Present Illness History of Present Illness Mr Drake is a 69 yo M w/ PMHx CAD s/p stents, DM2, GERD, HLD, HTN, chronic back pain, constipation, and recent diagnosis of BPH who was recently seen at this facility for RCA stenting returns from SNF today c/o worsening shortness of breath and heavy chest pressure. No leg swelling or leg pain. He was recently admitted 05/09-05/16 for UTI/prostatitis as well as sciatica, then readmitted with NSTEMI and RCA stenting on 05/17, discharged 05/22 to SNF. Report from SNF states the patient was on 3 to 4 L oxygen since his recent cardiac cath but today noted with oxygen 80% on 6 L nasal cannula. Patient states he felt a little dizzy after standing up earlier, however states this is improved. Recently had negative COVID test. CXR with bilateral interstitial infiltrate pattern. Pulmonary perfusion imaging was performed without ventilatory scan and was interpreted by radiology as high probability for PE given the bilateral perfusion defects, on chest x-ray it appears that the same pattern as the interstitial infiltrate however. Labs significant for WBC 14.8, Hb 13.7 platelets 142, NA 138, K4.1, BUN 49, CR 1.9, glucose 204, lactic acid 3.3, INR 1.2, AST 45, BNP 4329, troponin 0 0.042. EKG with QRS consistent with prior inferolateral infarct. ED had given lovenox for concern for PE. Ramirez placed and lasix given. Admitted for further care under investigation for COVID 19. Some rincon tinged urine for Ramirez. No clots noted. His breathing is improved. Discussed changing to heparin as he was given Lovenox in the ED and weightbase protocol will not work for this. His chest pressure is improved. Still on 12 L facemask O2. Vitals Vitals Vital Signs Date Time Temp Pulse Resp B/P (MAP) Pulse Ox O2 Delivery O2 Flow Rate FiO2 05/25/20 03:00 97.5 68 18 124/60 (81) 96 Room Air 15.0 97.5 Physical Exam General: Alert, Oriented X3, Cooperative, moderate distress Lungs: Clear Abdomen: Normal bowel sounds, Soft, No tenderness, No hepatosplenomegaly, No masses Extremities: No clubbing, No cyanosis, No edema, Normal pulses, No tenderness/swelling Skin: No rashes, No breakdown, No significant lesion Labs LABS Laboratory Tests Test 05/24/20 12:17 05/24/20 12:22 05/24/20 13:05 05/24/20 22:08 White Blood Count 14.8 x10^3/uL (4.0-11.0) Red Blood Count 4.34 x10^6/uL (4.30-5.70) Hemoglobin 13.7 g/dL (13.0-17.5) Hematocrit 41.0 % (39.0-53.0) Mean Corpuscular Volume 94 fL (79-100) Mean Corpuscular Hemoglobin 32 pg (25-35) Mean Corpuscular Hemoglobin Concent 33 g/dL (31-37) Red Cell Distribution Width 15.5 % (11.5-14.5) Platelet Count 142 x10^3/uL (140-400) Neutrophils (%) (Auto) 88 % (31-73) Lymphocytes (%) (Auto) 6 % (24-48) Monocytes (%) (Auto) 5 % (0-9) Eosinophils (%) (Auto) 0 % (0-3) Basophils (%) (Auto) 1 % (0-3) Neutrophils # (Auto) 13.0 x10^3/uL (1.8-7.7) Lymphocytes # (Auto) 0.8 x10^3/uL (1.0-4.8) Monocytes # (Auto) 0.8 x10^3/uL (0.0-1.1) Eosinophils # (Auto) 0.1 x10^3/uL (0.0-0.7) Basophils # (Auto) 0.1 x10^3/uL (0.0-0.2) Segmented Neutrophils % 85 % (35-66) Band Neutrophils % 3 % (0-9) Lymphocytes % 5 % (24-48) Monocytes % 5 % (0-10) Eosinophils % 2 % (0-5) Platelet Estimate Adequate (ADEQUATE) Anisocytosis Slight Prothrombin Time 14.9 SEC (11.7-14.0) Prothromb Time International Ratio 1.2 (0.8-1.1) Sodium Level 138 mmol/L (136-145) Potassium Level 4.1 mmol/L (3.5-5.1) Chloride Level 101 mmol/L (98-107) Carbon Dioxide Level 20 mmol/L (21-32) Anion Gap 17 (6-14) Blood Urea Nitrogen 44 mg/dL (8-26) Creatinine 1.9 mg/dL (0.7-1.3) Estimated GFR (Cockcroft-Gault) 35.5 BUN/Creatinine Ratio 23 (6-20) Glucose Level 214 mg/dL (70-99) Lactic Acid Level 3.3 mmol/L (0.4-2.0) Calcium Level 8.8 mg/dL (8.5-10.1) Magnesium Level 2.4 mg/dL (1.8-2.4) Total Bilirubin 0.7 mg/dL (0.2-1.0) Aspartate Amino Transf (AST/SGOT) 45 U/L (15-37) Alanine Aminotransferase (ALT/SGPT) 51 U/L (16-63) Alkaline Phosphatase 130 U/L (46-116) Troponin I Quantitative 0.042 ng/mL (0.000-0.055) VN-Fot-X-Type Natriuretic Peptide 4329 pg/mL (0-124) Total Protein 7.2 g/dL (6.4-8.2) Albumin 3.4 g/dL (3.4-5.0) Albumin/Globulin Ratio 0.9 (1.0-1.7) Procalcitonin < 0.10 ng/mL (0.00-0.10) Urine Collection Type Unknown Urine Color Yellow Urine Clarity Cloudy Urine pH 5.0 (<5.0-8.0) Urine Specific [place] 1.020 (1.000-1.030) Urine Protein 30 mg/dL (NEG-TRACE) Urine Glucose (UA) Negative mg/dL (NEG) Urine Ketones (Stick) Negative mg/dL (NEG) Urine Blood Trace (NEG) Urine Nitrite Negative (NEG) Urine Bilirubin Negative (NEG) Urine Urobilinogen Dipstick 1.0 mg/dL (0.2 mg/dL) Urine Leukocyte Esterase Trace (NEG) Urine RBC 6-10 /HPF (0-2) Urine WBC 11-20 /HPF (0-4) Urine Squamous Epithelial Cells Few /LPF Urine Transitional Epithelial Cells Few /LPF Urine Bacteria 0 /HPF (0-FEW) Urine Hyaline Casts Many /HPF Urine Mucus Marked /LPF O2 Saturation 91 % (92-99) Arterial Blood pH 7.42 (7.35-7.45) Arterial Blood pCO2 at Patient Temp 28 mmHg (35-46) Arterial Blood pO2 at Patient Temp 62 mmHg (65-108) Arterial Blood HCO3 17 mmol/L (21-28) Arterial Blood Base Excess -6 mmol/L (-3-3) FiO2 100 Glucose (Fingerstick) 173 mg/dL (70-99) Test 05/25/20 03:15 05/25/20 07:48 White Blood Count 11.7 x10^3/uL (4.0-11.0) Red Blood Count 4.28 x10^6/uL (4.30-5.70) Hemoglobin 13.5 g/dL (13.0-17.5) Hematocrit 41.4 % (39.0-53.0) Mean Corpuscular Volume 97 fL (79-100) Mean Corpuscular Hemoglobin 32 pg (25-35) Mean Corpuscular Hemoglobin Concent 33 g/dL (31-37) Red Cell Distribution Width 15.7 % (11.5-14.5) Platelet Count 112 x10^3/uL (140-400) Neutrophils (%) (Auto) 75 % (31-73) Lymphocytes (%) (Auto) 16 % (24-48) Monocytes (%) (Auto) 8 % (0-9) Eosinophils (%) (Auto) 1 % (0-3) Basophils (%) (Auto) 0 % (0-3) Neutrophils # (Auto) 8.7 x10^3/uL (1.8-7.7) Lymphocytes # (Auto) 1.9 x10^3/uL (1.0-4.8) Monocytes # (Auto) 0.9 x10^3/uL (0.0-1.1) Eosinophils # (Auto) 0.2 x10^3/uL (0.0-0.7) Basophils # (Auto) 0.0 x10^3/uL (0.0-0.2) Sodium Level 140 mmol/L (136-145) Potassium Level 4.0 mmol/L (3.5-5.1) Chloride Level 102 mmol/L (98-107) Carbon Dioxide Level 27 mmol/L (21-32) Anion Gap 11 (6-14) Blood Urea Nitrogen 42 mg/dL (8-26) Creatinine 1.7 mg/dL (0.7-1.3) Estimated GFR (Cockcroft-Gault) 40.4 Glucose Level 152 mg/dL (70-99) Lactic Acid Level 1.5 mmol/L (0.4-2.0) Calcium Level 9.1 mg/dL (8.5-10.1) Troponin I Quantitative 0.050 ng/mL (0.000-0.055) Glucose (Fingerstick) 164 mg/dL (70-99) Assessment and Plan Assessmemt and Plan Problems Medical Problems: (1) Chest pressure Status: Acute (2) Congestive heart failure (CHF) Status: Acute Comment Review of Relevant I have reviewed the following items jm (where applicable) has been applied. Labs Laboratory Tests Test 05/24/20 12:17 05/24/20 12:22 05/24/20 13:05 05/24/20 22:08 White Blood Count 14.8 x10^3/uL (4.0-11.0) Red Blood Count 4.34 x10^6/uL (4.30-5.70) Hemoglobin 13.7 g/dL (13.0-17.5) Hematocrit 41.0 % (39.0-53.0) Mean Corpuscular Volume 94 fL (79-100) Mean Corpuscular Hemoglobin 32 pg (25-35) Mean Corpuscular Hemoglobin Concent 33 g/dL (31-37) Red Cell Distribution Width 15.5 % (11.5-14.5) Platelet Count 142 x10^3/uL (140-400) Neutrophils (%) (Auto) 88 % (31-73) Lymphocytes (%) (Auto) 6 % (24-48) Monocytes (%) (Auto) 5 % (0-9) Eosinophils (%) (Auto) 0 % (0-3) Basophils (%) (Auto) 1 % (0-3) Neutrophils # (Auto) 13.0 x10^3/uL (1.8-7.7) Lymphocytes # (Auto) 0.8 x10^3/uL (1.0-4.8) Monocytes # (Auto) 0.8 x10^3/uL (0.0-1.1) Eosinophils # (Auto) 0.1 x10^3/uL (0.0-0.7) Basophils # (Auto) 0.1 x10^3/uL (0.0-0.2) Segmented Neutrophils % 85 % (35-66) Band Neutrophils % 3 % (0-9) Lymphocytes % 5 % (24-48) Monocytes % 5 % (0-10) Eosinophils % 2 % (0-5) Platelet Estimate Adequate (ADEQUATE) Anisocytosis Slight Prothrombin Time 14.9 SEC (11.7-14.0) Prothromb Time International Ratio 1.2 (0.8-1.1) Sodium Level 138 mmol/L (136-145) Potassium Level 4.1 mmol/L (3.5-5.1) Chloride Level 101 mmol/L (98-107) Carbon Dioxide Level 20 mmol/L (21-32) Anion Gap 17 (6-14) Blood Urea Nitrogen 44 mg/dL (8-26) Creatinine 1.9 mg/dL (0.7-1.3) Estimated GFR (Cockcroft-Gault) 35.5 BUN/Creatinine Ratio 23 (6-20) Glucose Level 214 mg/dL (70-99) Lactic Acid Level 3.3 mmol/L (0.4-2.0) Calcium Level 8.8 mg/dL (8.5-10.1) Magnesium Level 2.4 mg/dL (1.8-2.4) Total Bilirubin 0.7 mg/dL (0.2-1.0) Aspartate Amino Transf (AST/SGOT) 45 U/L (15-37) Alanine Aminotransferase (ALT/SGPT) 51 U/L (16-63) Alkaline Phosphatase 130 U/L (46-116) Troponin I Quantitative 0.042 ng/mL (0.000-0.055) FK-Irn-N-Type Natriuretic Peptide 4329 pg/mL (0-124) Total Protein 7.2 g/dL (6.4-8.2) Albumin 3.4 g/dL (3.4-5.0) Albumin/Globulin Ratio 0.9 (1.0-1.7) Procalcitonin < 0.10 ng/mL (0.00-0.10) Urine Collection Type Unknown Urine Color Yellow Urine Clarity Cloudy Urine pH 5.0 (<5.0-8.0) Urine Specific [place] 1.020 (1.000-1.030) Urine Protein 30 mg/dL (NEG-TRACE) Urine Glucose (UA) Negative mg/dL (NEG) Urine Ketones (Stick) Negative mg/dL (NEG) Urine Blood Trace (NEG) Urine Nitrite Negative (NEG) Urine Bilirubin Negative (NEG) Urine Urobilinogen Dipstick 1.0 mg/dL (0.2 mg/dL) Urine Leukocyte Esterase Trace (NEG) Urine RBC 6-10 /HPF (0-2) Urine WBC 11-20 /HPF (0-4) Urine Squamous Epithelial Cells Few /LPF Urine Transitional Epithelial Cells Few /LPF Urine Bacteria 0 /HPF (0-FEW) Urine Hyaline Casts Many /HPF Urine Mucus Marked /LPF O2 Saturation 91 % (92-99) Arterial Blood pH 7.42 (7.35-7.45) Arterial Blood pCO2 at Patient Temp 28 mmHg (35-46) Arterial Blood pO2 at Patient Temp 62 mmHg (65-108) Arterial Blood HCO3 17 mmol/L (21-28) Arterial Blood Base Excess -6 mmol/L (-3-3) FiO2 100 Glucose (Fingerstick) 173 mg/dL (70-99) Test 05/25/20 03:15 05/25/20 07:48 White Blood Count 11.7 x10^3/uL (4.0-11.0) Red Blood Count 4.28 x10^6/uL (4.30-5.70) Hemoglobin 13.5 g/dL (13.0-17.5) Hematocrit 41.4 % (39.0-53.0) Mean Corpuscular Volume 97 fL (79-100) Mean Corpuscular Hemoglobin 32 pg (25-35) Mean Corpuscular Hemoglobin Concent 33 g/dL (31-37) Red Cell Distribution Width 15.7 % (11.5-14.5) Platelet Count 112 x10^3/uL (140-400) Neutrophils (%) (Auto) 75 % (31-73) Lymphocytes (%) (Auto) 16 % (24-48) Monocytes (%) (Auto) 8 % (0-9) Eosinophils (%) (Auto) 1 % (0-3) Basophils (%) (Auto) 0 % (0-3) Neutrophils # (Auto) 8.7 x10^3/uL (1.8-7.7) Lymphocytes # (Auto) 1.9 x10^3/uL (1.0-4.8) Monocytes # (Auto) 0.9 x10^3/uL (0.0-1.1) Eosinophils # (Auto) 0.2 x10^3/uL (0.0-0.7) Basophils # (Auto) 0.0 x10^3/uL (0.0-0.2) Sodium Level 140 mmol/L (136-145) Potassium Level 4.0 mmol/L (3.5-5.1) Chloride Level 102 mmol/L (98-107) Carbon Dioxide Level 27 mmol/L (21-32) Anion Gap 11 (6-14) Blood Urea Nitrogen 42 mg/dL (8-26) Creatinine 1.7 mg/dL (0.7-1.3) Estimated GFR (Cockcroft-Gault) 40.4 Glucose Level 152 mg/dL (70-99) Lactic Acid Level 1.5 mmol/L (0.4-2.0) Calcium Level 9.1 mg/dL (8.5-10.1) Troponin I Quantitative 0.050 ng/mL (0.000-0.055) Glucose (Fingerstick) 164 mg/dL (70-99) Laboratory Tests Test 05/24/20 12:17 05/24/20 12:22 05/24/20 13:05 05/24/20 22:08 White Blood Count 14.8 x10^3/uL (4.0-11.0) Red Blood Count 4.34 x10^6/uL (4.30-5.70) Hemoglobin 13.7 g/dL (13.0-17.5) Hematocrit 41.0 % (39.0-53.0) Mean Corpuscular Volume 94 fL (79-100) Mean Corpuscular Hemoglobin 32 pg (25-35) Mean Corpuscular Hemoglobin Concent 33 g/dL (31-37) Red Cell Distribution Width 15.5 % (11.5-14.5) Platelet Count 142 x10^3/uL (140-400) Neutrophils (%) (Auto) 88 % (31-73) Lymphocytes (%) (Auto) 6 % (24-48) Monocytes (%) (Auto) 5 % (0-9) Eosinophils (%) (Auto) 0 % (0-3) Basophils (%) (Auto) 1 % (0-3) Neutrophils # (Auto) 13.0 x10^3/uL (1.8-7.7) Lymphocytes # (Auto) 0.8 x10^3/uL (1.0-4.8) Monocytes # (Auto) 0.8 x10^3/uL (0.0-1.1) Eosinophils # (Auto) 0.1 x10^3/uL (0.0-0.7) Basophils # (Auto) 0.1 x10^3/uL (0.0-0.2) Segmented Neutrophils % 85 % (35-66) Band Neutrophils % 3 % (0-9) Lymphocytes % 5 % (24-48) Monocytes % 5 % (0-10) Eosinophils % 2 % (0-5) Platelet Estimate Adequate (ADEQUATE) Anisocytosis Slight Prothrombin Time 14.9 SEC (11.7-14.0) Prothromb Time International Ratio 1.2 (0.8-1.1) Sodium Level 138 mmol/L (136-145) Potassium Level 4.1 mmol/L (3.5-5.1) Chloride Level 101 mmol/L (98-107) Carbon Dioxide Level 20 mmol/L (21-32) Anion Gap 17 (6-14) Blood Urea Nitrogen 44 mg/dL (8-26) Creatinine 1.9 mg/dL (0.7-1.3) Estimated GFR (Cockcroft-Gault) 35.5 BUN/Creatinine Ratio 23 (6-20) Glucose Level 214 mg/dL (70-99) Lactic Acid Level 3.3 mmol/L (0.4-2.0) Calcium Level 8.8 mg/dL (8.5-10.1) Magnesium Level 2.4 mg/dL (1.8-2.4) Total Bilirubin 0.7 mg/dL (0.2-1.0) Aspartate Amino Transf (AST/SGOT) 45 U/L (15-37) Alanine Aminotransferase (ALT/SGPT) 51 U/L (16-63) Alkaline Phosphatase 130 U/L (46-116) Troponin I Quantitative 0.042 ng/mL (0.000-0.055) VH-Xhn-C-Type Natriuretic Peptide 4329 pg/mL (0-124) Total Protein 7.2 g/dL (6.4-8.2) Albumin 3.4 g/dL (3.4-5.0) Albumin/Globulin Ratio 0.9 (1.0-1.7) Procalcitonin < 0.10 ng/mL (0.00-0.10) Urine Collection Type Unknown Urine Color Yellow Urine Clarity Cloudy Urine pH 5.0 (<5.0-8.0) Urine Specific [place] 1.020 (1.000-1.030) Urine Protein 30 mg/dL (NEG-TRACE) Urine Glucose (UA) Negative mg/dL (NEG) Urine Ketones (Stick) Negative mg/dL (NEG) Urine Blood Trace (NEG) Urine Nitrite Negative (NEG) Urine Bilirubin Negative (NEG) Urine Urobilinogen Dipstick 1.0 mg/dL (0.2 mg/dL) Urine Leukocyte Esterase Trace (NEG) Urine RBC 6-10 /HPF (0-2) Urine WBC 11-20 /HPF (0-4) Urine Squamous Epithelial Cells Few /LPF Urine Transitional Epithelial Cells Few /LPF Urine Bacteria 0 /HPF (0-FEW) Urine Hyaline Casts Many /HPF Urine Mucus Marked /LPF O2 Saturation 91 % (92-99) Arterial Blood pH 7.42 (7.35-7.45) Arterial Blood pCO2 at Patient Temp 28 mmHg (35-46) Arterial Blood pO2 at Patient Temp 62 mmHg (65-108) Arterial Blood HCO3 17 mmol/L (21-28) Arterial Blood Base Excess -6 mmol/L (-3-3) FiO2 100 Glucose (Fingerstick) 173 mg/dL (70-99) Test 05/25/20 03:15 05/25/20 07:48 White Blood Count 11.7 x10^3/uL (4.0-11.0) Red Blood Count 4.28 x10^6/uL (4.30-5.70) Hemoglobin 13.5 g/dL (13.0-17.5) Hematocrit 41.4 % (39.0-53.0) Mean Corpuscular Volume 97 fL (79-100) Mean Corpuscular Hemoglobin 32 pg (25-35) Mean Corpuscular Hemoglobin Concent 33 g/dL (31-37) Red Cell Distribution Width 15.7 % (11.5-14.5) Platelet Count 112 x10^3/uL (140-400) Neutrophils (%) (Auto) 75 % (31-73) Lymphocytes (%) (Auto) 16 % (24-48) Monocytes (%) (Auto) 8 % (0-9) Eosinophils (%) (Auto) 1 % (0-3) Basophils (%) (Auto) 0 % (0-3) Neutrophils # (Auto) 8.7 x10^3/uL (1.8-7.7) Lymphocytes # (Auto) 1.9 x10^3/uL (1.0-4.8) Monocytes # (Auto) 0.9 x10^3/uL (0.0-1.1) Eosinophils # (Auto) 0.2 x10^3/uL (0.0-0.7) Basophils # (Auto) 0.0 x10^3/uL (0.0-0.2) Sodium Level 140 mmol/L (136-145) Potassium Level 4.0 mmol/L (3.5-5.1) Chloride Level 102 mmol/L (98-107) Carbon Dioxide Level 27 mmol/L (21-32) Anion Gap 11 (6-14) Blood Urea Nitrogen 42 mg/dL (8-26) Creatinine 1.7 mg/dL (0.7-1.3) Estimated GFR (Cockcroft-Gault) 40.4 Glucose Level 152 mg/dL (70-99) Lactic Acid Level 1.5 mmol/L (0.4-2.0) Calcium Level 9.1 mg/dL (8.5-10.1) Troponin I Quantitative 0.050 ng/mL (0.000-0.055) Glucose (Fingerstick) 164 mg/dL (70-99) Medications Current Medications Nitroglycerin (Nitrostat) 0.4 mg PRN Q5MIN PRN SL CHEST PAIN Last administered on 05/24/20at 12:22; Start 05/24/20 at 12:00 Acetaminophen/ Hydrocodone Bitart (Lortab 5/325) 1 tab 1X ONCE PO Last administered on 05/24/20at 12:56; Start 05/24/20 at 12:45; Stop 05/24/20 at 12:46; Status DC Furosemide (Lasix) 40 mg 1X ONCE IVP Last administered on 05/24/20at 15:43; Start 05/24/20 at 13:00; Stop 05/24/20 at 13:01; Status DC Enoxaparin Sodium (Lovenox 100mg Syringe) 100 mg 1X ONCE SQ Last administered on 05/24/20at 15:20; Start 05/24/20 at 14:15; Stop 05/24/20 at 14:29; Status DC Morphine Sulfate (Morphine Sulfate) 2 mg 1X ONCE IV Last administered on 05/24/20at 15:17; Start 05/24/20 at 14:30; Stop 05/24/20 at 14:37; Status DC Ondansetron HCl (Zofran) 4 mg PRN Q4HRS PRN IV NAUSEA/VOMITING; Start 05/24/20 at 14:45 Acetaminophen (Tylenol) 650 mg PRN Q4HRS PRN PO TEMP OVER 100.4F OR MILD PAIN; Start 05/24/20 at 14:45 Aspirin (Ecotrin) 81 mg DAILY PO ; Start 05/25/20 at 09:00 Atorvastatin Calcium (Lipitor) 20 mg HS PO Last administered on 05/24/20at 22:01; Start 05/24/20 at 21:00 Clopidogrel Bisulfate (Plavix) 75 mg DAILY PO ; Start 05/25/20 at 09:00 Ferrous Sulfate (Feosol) 325 mg DAILY PO ; Start 05/25/20 at 09:00 Fluticasone Propionate (Flonase) 2 spray DAILY NS ; Start 05/25/20 at 09:00 Acetaminophen/ Hydrocodone Bitart (Lortab 5/325) 1 tab PRN Q6HRS PRN PO PAIN; Start 05/24/20 at 18:15 Isosorbide Mononitrate (Imdur) 60 mg DAILY PO ; Start 05/25/20 at 09:00 Pantoprazole Sodium (Protonix) 40 mg DAILYAC PO ; Start 05/25/20 at 07:30 Tamsulosin HCl (Flomax) 0.4 mg HS PO Last administered on 05/24/20at 22:01; S tart 05/24/20 at 21:00 Metoprolol Succinate (Toprol Xl) 50 mg DAILY PO ; Start 05/25/20 at 09:00 Insulin Human Lispro (HumaLOG) 0-9 UNITS TIDACHC SQ ; Start 05/24/20 at 21:00 Dextrose (Dextrose 50%-Water Syringe) 12.5 gm PRN Q15MIN PRN IV SEE COMMENTS; Start 05/24/20 at 18:15 Furosemide (Lasix) 40 mg [id number] IVP ; Start 05/25/20 at 09:00; Stop 05/25/20 at 14:01 Morphine Sulfate (Morphine Sulfate) 4 mg PRN Q4HRS PRN IV PAIN Last administered on 05/24/20at 22:02; Start 05/24/20 at 20:45 Pharmacy Consult (C.diff Med Screen By Rx) 1 each 1X ONCE [facility] ; Start 05/25/20 at 09:00; Stop 05/25/20 at 09:01 Active Scripts Active Hydrocodone-Apap 5-325 (Hydrocodone Bit/Acetaminophen) 1 Tab Tablet 1 Tab PO PRN Q6HRS PRN 5 Days Amox Tr-K Clv 500-125 Mg Tab (Amoxicillin/Potassium Clav) 1 Each Tablet 1 Tab PO BID 10 Days Aspirin Ec (Aspirin) 81 Mg Tablet.dr 1 Tab PO DAILY Reported Flomax (Tamsulosin Hcl) 0.4 Mg Cap.er.24h 1 Cap PO HS Fluticasone Propionate Nasal [place] (Fluticasone Propionate) 16 Gm [place].susp 2 [place] NS DAILY Linzess (Linaclotide) 145 Mcg Capsule 145 Mcg PO 3X/WEEK Fexofenadine Hcl 180 Mg Tablet 1 Tab PO DAILY Vitamin C (Ascorbic Acid) 500 Mg Capsule.er 1,000 Mg PO DAILY One Daily For Men Tablet (Multivits-Minerals/Fa/Lycopene) 1 Each Tablet 1 Tab PO DAILY 30 Days Iron (Ferrous Sulfate) 325 Mg Tablet 65 Mg PO DAILY Allopurinol 300 Mg Tablet 1 Tab PO DAILY Vitamin D2 (Ergocalciferol (Vitamin D2)) 50,000 Unit Capsule 50,000 Unit PO WEEKLY Dose given on the Take on Pantoprazole Sodium (Pantoprazole Sodium) 40 Mg Tablet.dr 1 Tab PO DAILY Gave this morning take tomorrow morning Tizanidine Hcl 4 Mg Tablet 1 Tab PO QHS Gave dose last night Take tonight before bedtime Vascepa (Icosapent Ethyl) 1 Gm Capsule 1 Gm PO Not given on this admission Take as previoulsy instructed Atorvastatin Calcium 20 Mg Tablet 1 Tab PO HS Gave last night Take tonight Clopidogrel (Clopidogrel Bisulfate) 75 Mg Tablet 1 Tab PO DAILY Gave this morning take tomorrow morning Isosorbide Mononitrate Er (Isosorbide Mononitrate) 30 Mg Tab.er.24h 60 Mg PO DAILY Gave this morning take tomorrow morning Repaglinide 1 Mg Tablet 1 Mg PO Not given on this admission Continue as previously instructed Toprol Xl (Metoprolol Succinate) 50 Mg Tab.er.24h 1 Tab PO DAILY Gave this morning take tomorrow morning Vitals/I & O Vital Sign - Last 24 Hours 05/24/20 05/24/20 05/24/20 05/24/20 11:54 12:22 12:30 13:00 Temp 97.7 97.7 Pulse 96 87 88 94 Resp 30 B/P (MAP) 162/81 (108) 126/64 120/56 (77) 119/58 (78) Pulse Ox 92 92 94 O2 Delivery NonRebreather Mask NonRebreather Mask NonRebreather Mask O2 Flow Rate 15.0 15.0 15.0 05/24/20 05/24/20 05/24/20 05/24/20 13:05 13:56 14:00 14:30 Pulse 78 78 Resp 18 Pulse Ox 93 92 O2 Delivery NonRebreather Mask Room Air NonRebreather Mask NonRebreather Mask O2 Flow Rate 15.0 15.0 15.0 05/24/20 05/24/20 05/24/20 05/24/20 15:00 15:17 15:30 16:00 Pulse 76 78 76 Resp 26 B/P (MAP) 141/64 (89) 125/66 (85) Pulse Ox 89 94 91 94 O2 Delivery NonRebreather Mask NonRebreather Mask NonRebreather Mask NonRebreather Mask O2 Flow Rate 15.0 15.0 15.0 15.0 05/24/20 05/24/20 05/24/20 05/24/20 16:30 17:00 17:30 18:00 Pulse 74 72 72 74 B/P (MAP) 133/71 (91) 129/69 (89) 127/67 (87) 118/71 (87) Pulse Ox 93 93 92 94 O2 Delivery NonRebreather Mask NonRebreather Mask NonRebreather Mask NonRebreather Mask O2 Flow Rate 15.0 15.0 15.0 15.0 05/24/20 05/24/20 05/24/20 05/24/20 18:30 19:13 19:43 20:30 Pulse 74 74 72 B/P (MAP) 129/72 (91) 124/68 (86) Pulse Ox 93 92 92 O2 Delivery NonRebreather Mask Nasal Cannula Nasal Cannula Room Air O2 Flow Rate 15.0 5.0 5.0 5.0 05/24/20 05/24/20 05/24/20 05/25/20 22:02 22:32 23:00 03:00 Temp 97.5 97.5 97.5 97.5 Pulse 74 68 Resp 16 18 20 18 B/P (MAP) 130/60 (83) 124/60 (81) Pulse Ox 92 96 96 96 O2 Delivery Venturi Mask Venturi Mask Bag Valve Mask Room Air O2 Flow Rate 15.0 15.0 15.0 15.0 Intake and Output 05/24/20 05/24/20 05/25/20 15:00 23:00 07:00 Intake Total 300 ml Balance 300 ml Justicifation of Admission Dx: Justifications for Admission: Justification of Admission Dx: Yes CHF: Hemodynamic Instability Angina: Symp at Rest TIMA LEDESMA MD May 25, 2020 08:03
[2020-05-25] MEDS ORDERED: C.DIFF MED SCREEN BY RX. MC ONE (09:00)
--- NOTE | 2020-05-25 09:35 | NUR ---
Pharmacy Medication Review S: Consulted for medication review re: C.diff Risk Assessment score of 6 O: HARPREET HERR is a 69 year old with: Previous C.diff infection: No Previous hospitalization: Within 30 days Recent antibiotics: Within 30 days Use of gastric acid suppressor: No Transfer from [place]: Yes Current antibiotic regimen: Current acid suppression regimen: A: Patient has been identified as having risk factors for C.diff infection as noted above. P: Antibiotic Regimen recommendation made: N/A Probiotic ordered: Yes PPI changed to [id number]: Yes Anand Philippe [facility], 05/25/20 [id number]
[2020-05-25] MEDS: FLUTICASONE 50MCG/NASAL SPRAY 16GM BOTTLE. NS SCH (09:48)
[2020-05-25] MEDS: INSULIN LISPRO 300 UNITS/3 ML VIAL. SQ SCH ×4 (09:50→20:05)
[2020-05-25] MEDS: FUROSEMIDE 40 MG/4 ML VIAL. IVP SCH ×2 (09:52→12:52)
[2020-05-25] MEDS: ISOSORBIDE MONONITRATE ER 30 MG TAB.ER.24H PO SCH (09:53)
[2020-05-25] MEDS: ASPIRIN ENTERIC COATED 81 MG TABLET.DR. PO SCH (09:54)
[2020-05-25] MEDS: CLOPIDOGREL BISULFATE 75 MG TABLET PO SCH (09:54)
[2020-05-25] MEDS: FERROUS SULFATE 325 MG TABLET. PO SCH (09:54)
[2020-05-25] MEDS: METOPROLOL SUCC 24HR ER 50 MG TAB.ER.24H. PO SCH (09:55)
[2020-05-25] MEDS: HYDROcodone/APAP 5/325MG 1 TAB TABLET PO PRN ×2 (09:55→20:05)
[2020-05-25] MEDS: LACTOBACILLUS RHAMNOSUS GG 1 CAPSULE. PO SCH ×2 (09:57→20:04)
[2020-05-25 11:00] VITALS: BP 141/74
--- NOTE | 2020-05-25 13:45 | PDOC2 ---
CARDIAC CONSULT DATE OF CONSULT Date of Consult DATE: 05/25/20 TIME: 13:12 REASON FOR CONSULT Reason for Consult: Readmit CAD patient REFERRING PHYSICIAN Referring Physician: Sandor SOURCE Source: Chart review, Patient HISTORY OF PRESENT ILLNESS HISTORY OF PRESENT ILLNESS This is a pleasant 69 yo male admitted for complains of chest pain and shortness of breath,.He was just discharged few days ago to [facility] after being here. He is S/P PCI and did well. He has been working with rehab over there and admits of poor endurance with limited mobility. He does get SOA with exertion and yesterday he is being worked on by rehab and could not get up and about and was significantly SOA. He did use his CPAP the last 2 days he has been at [facility] but he said it is not optimal anymore and waiting for his new machine that just got shipped by [employer]. Denies any significnat peripheral edema but feels weak and has an isolated mid chest pressure which has been better with morphine. His SOA is better but still feels weak. sometimes feeling of palpitations and dizziness. So far no significant arrhythmias, No fever or chills. No nausea or vomiting. PAST MEDICAL HISTORY Past Medical History Cardiovascular: CAD, HTN, [place], Hyperlipidemia, Other (PVD) Pulmonary: Asthma, Other (SUSANA with bipap) CENTRAL NERVOUS SYSTEM: Periperal neuropathy GI: GERD, Irritable bowel disease, Hernia Heme/Onc: Anemia NOS Hepatobiliary: No pertinent hx Musculoskeletal: low back pain, Osteoarthritis, Other (morbid obesity) Rheumatologic: No pertinent hx Infectious disease: No pertinent hx ENT: Allergic Rhinitis Renal/: UTI Endocrine: Diabetes (2) Dermatology: No pertinent hx PAST SURGICAL HISTORY Past Surgical History [facility] with stent 2012, back surgery, cholecystectomy, Hernia repair FAMILY HISTORY Family History: Coronary Artery Disease (father) SOCIAL HISTORY Smoke: No ALCOHOL: none Drugs: None Lives: Longterm CURRENT MEDICATIONS CURRENT MEDICATIONS Current Medications Medications (Trade) Dose Ordered Sig/Micah Route PRN Reason Start Time Stop Time Status Last Admin Dose Admin Enoxaparin Sodium (Lovenox 100mg Syringe) 100 mg 1X ONCE SQ 05/24/20 14:15 05/24/20 14:29 DC 05/24/20 15:20 Morphine Sulfate (Morphine Sulfate) 2 mg 1X ONCE IV 05/24/20 14:30 05/24/20 14:37 DC 05/24/20 15:17 Aspirin (Ecotrin) 81 mg DAILY PO 05/25/20 09:00 05/25/20 09:54 Atorvastatin Calcium (Lipitor) 20 mg HS PO 05/24/20 21:00 05/24/20 22:01 Clopidogrel Bisulfate (Plavix) 75 mg DAILY PO 05/25/20 09:00 05/25/20 09:54 Ferrous Sulfate (Feosol) 325 mg DAILY PO 05/25/20 09:00 05/25/20 09:54 Fluticasone Propionate (Flonase) 2 spray DAILY NS 05/25/20 09:00 05/25/20 09:48 Acetaminophen/ Hydrocodone Bitart (Lortab 5/325) 1 tab PRN Q6HRS PRN PO PAIN 05/24/20 18:15 05/25/20 09:55 Isosorbide Mononitrate (Imdur) 60 mg DAILY PO 05/25/20 09:00 05/25/20 09:53 Tamsulosin HCl (Flomax) 0.4 mg HS PO 05/24/20 21:00 05/24/20 22:01 Metoprolol Succinate (Toprol Xl) 50 mg DAILY PO 05/25/20 09:00 05/25/20 09:55 Insulin Human Lispro (HumaLOG) 0-9 UNITS TIDACHC SQ 05/24/20 21:00 05/25/20 13:05 Furosemide (Lasix) 40 mg BID92 IVP 05/25/20 09:00 05/25/20 14:01 05/25/20 12:52 Morphine Sulfate (Morphine Sulfate) 4 mg PRN Q4HRS PRN IV PAIN 05/24/20 20:45 05/24/20 22:02 Lactobacillus Rhamnosus (Culturelle) 1 cap BID PO 05/25/20 10:00 05/25/20 09:57 ALLERGIES ALLERGIES: Coded Allergies: No Known Drug Allergies (Unverified , 06/11/16) ROS Review of System 14 point ROS evlauated with pertinent positives noted per HPI PHYSICAL EXAM PHYSICAL EXAM Discussed with RN, noted gross hematuria with recent ramirez placement. Pt still needing high rate O2. No significant peripheral edema General: Alert, Oriented X3, Cooperative, mild distress HEENT: Atraumatic Lungs: Other (diminished ) Heart: Regular rate (SR) Abdomen: Other (obese) Extremities: No cyanosis Skin: No breakdown Neuro: Normal speech, Sensation intact Psych/Mental Status: Mental status NL, Other (anxious) MUSCULOSKELETAL: Osteoarthritic changes both hands VITALS/I&O VITALS/I&O: Vital Signs Date Time Temp Pulse Resp B/P (MAP) Pulse Ox O2 Delivery O2 Flow Rate FiO2 05/25/20 11:00 97.1 69 141/74 (96) 93 Room Air 15.0 97.1 05/25/20 03:00 18 I & O 0 05/24/20 05/24/20 05/25/20 15:00 23:00 07:00 Intake Total 300 ml Balance 300 ml LABS Lab: Laboratory Tests Test 05/24/20 22:08 05/25/20 03:15 05/25/20 07:48 05/25/20 09:05 Glucose (Fingerstick) 173 mg/dL (70-99) H 164 mg/dL (70-99) H White Blood Count 11.7 x10^3/uL (4.0-11.0) H Red Blood Count 4.28 x10^6/uL (4.30-5.70) L Hemoglobin 13.5 g/dL (13.0-17.5) Hematocrit 41.4 % (39.0-53.0) Mean Corpuscular Volume 97 fL (79-100) Mean Corpuscular Hemoglobin 32 pg (25-35) Mean Corpuscular Hemoglobin Concent 33 g/dL (31-37) Red Cell Distribution Width 15.7 % (11.5-14.5) H Platelet Count 112 x10^3/uL (140-400) L Neutrophils (%) (Auto) 75 % (31-73) H Lymphocytes (%) (Auto) 16 % (24-48) L Monocytes (%) (Auto) 8 % (0-9) Eosinophils (%) (Auto) 1 % (0-3) Basophils (%) (Auto) 0 % (0-3) Neutrophils # (Auto) 8.7 x10^3/uL (1.8-7.7) H Lymphocytes # (Auto) 1.9 x10^3/uL (1.0-4.8) Monocytes # (Auto) 0.9 x10^3/uL (0.0-1.1) Eosinophils # (Auto) 0.2 x10^3/uL (0.0-0.7) Basophils # (Auto) 0.0 x10^3/uL (0.0-0.2) Sodium Level 140 mmol/L (136-145) Potassium Level 4.0 mmol/L (3.5-5.1) Chloride Level 102 mmol/L (98-107) Carbon Dioxide Level 27 mmol/L (21-32) Anion Gap 11 (6-14) Blood Urea Nitrogen 42 mg/dL (8-26) H Creatinine 1.7 mg/dL (0.7-1.3) H Estimated GFR (Cockcroft-Gault) 40.4 Glucose Level 152 mg/dL (70-99) H Lactic Acid Level 1.5 mmol/L (0.4-2.0) 2.6 mmol/L (0.4-2.0) H Calcium Level 9.1 mg/dL (8.5-10.1) Troponin I Quantitative 0.050 ng/mL (0.000-0.055) 0.020 ng/mL (0.000-0.055) Test 05/25/20 12:35 Glucose (Fingerstick) 183 mg/dL (70-99) H Laboratory Tests 05/25/20 03:15 Laboratory Tests 05/25/20 03:15 ECHOCARDIOGRAM ECHOCARDIOGRAM <Conclusion> The left ventricular systolic function is normal. The Ejection Fraction is 55-60%. There is normal LV segmental wall motion. Trace mitral regurgitation. Trace tricuspid regurgitation with an estimated PAP of 34 mmHg. There is no evidence of significant pericardial effusion. DATE: 02/20/20 1134 HEART CATH HEART CATH CORONARY ANGIOGRAPHY: LM is a large caliber vessel with normal angiographic appearance. LAD is a large caliber vessel with normal angiographic appearance. D1 is a moderate caliber vessel with mild luminal irregularities. There is a patent proximal stent. LCx is a small caliber non-dominant vessel with mild luminal irregularities. Possible stent in the Lcx. OM1 is a small caliber vessel with an ostial 80% stenosis. Ramus is a small caliber vessel with a proximal 50% stenosis. RCA is a large caliber dominant vessel with distal 80 to 90% stenosis prior to the bifurcation. RPDA is a small caliber vessel with moderate diffuse disease up to 70% RPL is a large-caliber vessel with normal angiographic appearance Interventional technique: This was a complex PCI due to the patient's morbid obesity, difficulty with image intensification and right coronary artery tortuosity. Heparin was used for anticoagulation. The patient was previously on aspirin and Plavix therapy. Through a 6 Ghanaian JR4 guide catheter a 0.014 inch pro-water wire was used to cross the distal RCA lesion. Next balloon angioplasty was performed with a 3.0 x 15 mm balloon and the lesion was then stented with a 4.0 x 23 mm Shireen drug- eluting stent. This was dilated at 14 fina. Intracoronary nitroglycerin was administered and there was excellent stent expansion with YING-3 flow in the vessel. No guide or wire related complications were noted. The RPDA was felt to be small in caliber and diffusely diseased without evidence of brisk outflow and therefore further intervention was deferred. YING Flow YING Flow (Pre-Intervention): YING-3 YING Flow (Post-Intervention): YING-3 Conclusion 1. Normal left-sided filling pressures 2. Successful complex PCI of the RCA with implantation of a Shireen 4.0 x 23 mm drug-eluting stent 3. Patent stents in the LCx and 1st diagonal Recommendations ASA 81mg daily Plavix 75mg daily High dose statin therapy DATE: 05/17/20 1420 ASSESSMENT/PLAN ASSESSMENT/PLAN 1. Acute hypoxemic respiratory failure: with associated CHF with possible PE and currently PUI 2. Chest pain: doubt ACS, possibly pleuritic, V/Q scan with intermediate probability for PE with high DDIMER 3. CAD; s/p previous PCI/stents to the LCx and 1st diagonal. s/p PCI/JOELLE to the RCA 05/17/20. Trops are normal. EKG SR without acute changes 4. Acute on chronic diastolic CHF 5. SUSANA: uses bipap 5. Hypertension; controlled 6. Hyperlipiemia; statin 7. DM2 8. SONIYA on CKD3 9. Morbid obesity 10. BPH with gross hematuria: likely trauma from ramirez insertion, per PCP 11. Debiliyt: poor endurance. 12. Lactic acidosis Recommendations 1. Continue ASA. May hold plavix for 24 if gross hematuria worsens. Monitor Hgb. 2. Received IV lasix. Convert to po daily 3. Secondary prevention measures including DAPT with ASA/Plavix 4. Renal insufficiency with urinary retention and CHF contributing but unclear if pt is getting full benefit from his current old bipap as he mentioned that may not be working as well as it should and presently waiting on his new bipap machine that just got shipped. Potentially uncontrolled SUSANA could be contributing to his refractory CHF. Await covid PCR as well 5. Monitor rhythm. 6. Needing input for possible PE. Consult pulmonary YAYO RAJAN APRN May 25, 2020 13:45
[2020-05-25] MEDS ORDERED: HEPARIN for IV BOLUS 10,000 UNIT/10 ML VIAL. IV PRN ×2 (14:00)
--- NOTE | 2020-05-25 14:11 | NUR ---
SW following. Spoke with RN and reviewed chart. Spoke with pt and provided support. Pt was discharged home on 05/16 with [facility] and on 05/22 to [facility]. Pt was only at SNU for 2 days prior to this admission. Pt COVID pending. Pt on nonrebreather mask. Pt has BIPAP machine and walker from home per chart review. SW to continue following.
--- NOTE | 2020-05-25 14:17 | NUR ---
Pharmacy Warfarin Dosing Note S:Pharmacy consulted to assist with anticoagulation therapy started with target INR: 2 -3 O:HARPREET HERR is a 69 year old M with DVT/PE LABS: Last INR: 1.2 Last HGB: 13.5 Last HCT: 41.4 Last PLT: 112 Last dose of given on at Previous Regimen: Vitamin K given: Drug Interaction Changes: Ongoing Drug Interactions: A:INR of 1.2 is below desired range. Target range for this patient is: 2 -3 P: Warfarin dose: 7.5 mg Today at 1600 Bridge Therapy: Heparin Next INR due IN AM Pharmacy anticoagulation service will continue to follow. CHIARA FARRIS [facility], 05/25/20 [id number]
--- NOTE | 2020-05-25 14:40 | CONS ---
DATE OF CONSULTATION: PULMONARY CONSULTATION ATTENDING PHYSICIAN: Favio Patten MD. REASON FOR CONSULTATION: Hypoxic respiratory failure. HISTORY OF PRESENT ILLNESS: The patient is a 69-year-old male who has a history of coronary artery disease status post stents, history of diabetes, GERD, hyperlipidemia and multiple comorbid conditions. He was seen at [facility] recently for RCA stenting. Then, he was discharged to skilled care facility. The patient presented to the hospital with complaint of increasing shortness of breath and heavy chest pressure. His RCA stenting was done on 05/17 and discharged to skilled care on 05/22. His chest x-ray showed slightly prominent interstitial markings, but then perfusion scan was performed without the ventilatory scan and he had multiple moderate to large perfusion defects. He was reported as intermediate to high probability for thromboembolic disease. Currently, he is on Plavix only. He did receive dose of Lovenox by the ED. I have been asked to see him for further evaluation. He is currently on 15 liters of oxygen high flow. His saturations are 94%. He does appear ill. No headaches. No nausea, vomiting or diarrhea. No dysuria. No focal weakness. PAST MEDICAL HISTORY: Significant for history of coronary artery disease, history of recent stent, history of GERD, history of hyperlipidemia, hypertension, chronic back pain, constipation, BPH. PAST SURGICAL HISTORY: Recent cardiac catheterization and stent, cholecystectomy and tonsillectomy. FAMILY HISTORY: Coronary artery disease. SOCIAL HISTORY: Does not smoke. ALLERGIES: None. CURRENT MEDICATIONS: Reviewed as listed in the MRAD including Plavix. REVIEW OF SYSTEMS: Twelve-point system obtained. Pertinent positives discussed in my history of present illness, otherwise noncontributory. All systems that were negative were reviewed as well. PHYSICAL EXAMINATION: GENERAL: He is ill appearing, but in no obvious respiratory distress. VITAL SIGNS: Pulse ox 94% on 15 liters. Afebrile, blood pressure 119/58. Physical exam not performed due to COVID-19 pandemia suspicion. He appears ill, but in no obvious respiratory distress. He is obese. EXTREMITIES: With no pitting edema. LABORATORY DATA: Reviewed. BUN 42, creatinine 1.7. Troponin 0.02. INR 1.2. ABGs with a pH of 7.42, pCO2 of 20 and a pO2 of 62 on 100% FiO2. White cell count 11.7, hemoglobin 13.5, platelets are 112. IMPRESSION: 1. Acute hypoxic respiratory failure likely due to pulmonary embolism.Patient had a recent non-ST elevation myocardial infarction and right coronary artery stenting on 05/17. He was discharged on 05/22 to skilled care facility. He was discharged on nasal cannula. He now comes in with worsening hypoxia and intermediate to high probability perfusion scan. Chest x-ray shows mildly prominent interstitial marking, but no obvious congestive heart failure. Since there is no good explanation for the patient's hypoxia, I think clinically there is a strong suspicion for pulmonary embolism and we would initiate full-dose heparin. 2. Recent cardiac catheterization for coronary artery disease with right coronary artery stenting. 3. Underlying morbid obesity with a BMI of 54. 4. Acute kidney injury versus chronic kidney disease. RECOMMENDATIONS: 1. Continue present 15 liters of oxygen. 2. Discussed with RN. At this time, I will proceed with full-dose heparinization for pulmonary embolism. 3. Once his renal function gets better, then we will do a CTA chest. 4. Obtain venous Dopplers of lower extremities. 5. Follow cardiology recommendations. 6. Weight loss is strongly emphasized. 7. Consider sleep study as an outpatient. 8. Pending COVID testing result 9. Discussed with RN and we will follow along with you. WASHINGTON HORVATH MD DR: BALJIT/mariam JOB#: [id number] / [id number] XAVIER
[2020-05-25 15:00] VITALS: BP 111/67
--- NOTE | 2020-05-25 15:24 | NUR ---
Wound Care Wound care consult for wound on nose from CPAP. Pt is pending COVID 19 test so physical assessment not completed. RN reported it is a small scab, she is photographing wound today and dressing with bandaid. WC will follow up Thursday for photo assessment.
[2020-05-25] MEDS: MORPHINE SULFATE 4 MG/ML VIAL. IV PRN (16:48)
[2020-05-25 19:00] VITALS: BP 123/73
[2020-05-25] MEDS: FAMOTIDINE 20 MG TABLET. PO SCH (20:04)
[2020-05-25] MEDS: ATORVASTATIN CALCIUM 20 MG TABLET PO SCH (20:04)
[2020-05-25] MEDS: TAMSULOSIN 0.4 MG CAP.ER.24H. PO SCH (20:05)
[2020-05-25] MEDS: HEPARIN 25,000UTS/250ML PREMIX 250 ML IV PRN (20:10)
--- NOTE | 2020-05-25 20:18 | NUR ---
YAYO WITH CARDIOLOGY HAD CALLED WITH CONCERNS OF PT BEING PUT ON HEPARIN GTT WHILE HAVING SO MUCH BLOOD IN URINE. PT IRRIGATED DUE TO DECREASED URINE OUTPUT WELL DARK RED URINE IN DRAINAGE BAG. DR CHAPMAN NOTIFIED AND ORDERS RECEIVED.
[2020-05-25 23:00] VITALS: BP 127/70
[2020-05-26] VITALS (11 sets, daily range): BP systolic 104–143; BP diastolic 60–85
[2020-05-26] MEDS: HYDROcodone/APAP 5/325MG 1 TAB TABLET PO PRN ×4 (02:06→21:08)
[2020-05-26 03:10] LABS: PROTHROMBIN TIME PATIENT 14.3 SEC (11.7-14.0)
[2020-05-26] MEDS: MORPHINE SULFATE 4 MG/ML VIAL. IV PRN ×5 (07:03→23:10)
[2020-05-26] MEDS: INSULIN LISPRO 300 UNITS/3 ML VIAL. SQ SCH ×4 (07:30→21:13)
--- NOTE | 2020-05-26 07:40 | NUR ---
PT REPORTS THAT HE DOES NOT TAKE ANY INSULIN AT HOME AND IS NOT WANTING TO START AT THIS TIME. WILL CONTINUE TO REEDUCATE.
--- NOTE | 2020-05-26 07:44 | NUR ---
CALLED DR LEDESMA AT [facility] AT [phone] TO LET HIM KNOW THAT THE PT IS COVID NEGATIVE AND DID HE WANT TO TRANSFER THE PT. ORDERS GIVEN TO TRANSFER PT TO 2ND FLOOR. NURSING SPINNING ROOM WORKER NOTIFIED AND PT NOTIFIED WELL. WILL AWIT BED ASSIGNMENT. WILL CONTINUE TO MONITOR.
--- NOTE | 2020-05-26 08:24 | PDOC ---
PROGRESS NOTES Chief Complaint Chief Complaint A/P: Chest pain - likely multifactorial, almost certainly with a PE, troponins trended down, he has significant CAD. likely PE. Cardiology consult. Cont heparin GTT Acute hypoxic respiratory failure - likely 2/2 acute CHF, however, with his healthcare exposure COVID testing is indicated Shortness of breath - likely from above. Pulmonary embolism highly likely Bilateral DVT - non-occlusive, up beyond politeal fossa CAD - s/p previous PCI/stents to the LCx and 1st diagonal. s/p PCI/JOELLE to the RCA 05/17/ Hematuria - will continue bladder irrigation. If ramirez occludes we do not have Urology coverage and he would require transfer to another facility, he prefers Dr. Lamas, who is his primary Urologist. Acute on chronic diastolic CHF - c/o dyspnea and CXR with vascular congestion. change to PO lasix, strict i/o, ramirez placed Hypertension - controlled Hyperlipiemia - statin SONIYA on CKD - Cr 1.9. This was certainly vasomotor nephropathy SUSANA with CPAP BPH - cont meds HTN - controlled Morbid obesity with SUSANA - CPAP at home DM2 - sliding scale FEN - Cardiac PPX - heparin FULL CODE Dispo - inpatient History of Present Illness History of Present Illness Mr Drake is a 69 yo M w/ PMHx CAD s/p stents, DM2, GERD, HLD, HTN, chronic back pain, constipation, and recent diagnosis of BPH who was recently seen at this facility for RCA stenting returns from SNF today c/o worsening shortness of breath and heavy chest pressure. No leg swelling or leg pain. He was recently admitted 05/09-05/16 for UTI/prostatitis as well as sciatica, then readmitted with NSTEMI and RCA stenting on 05/17, discharged 05/22 to SNF. Report from SNF states the patient was on 3 to 4 L oxygen since his recent cardiac cath but today noted with oxygen 80% on 6 L nasal cannula. Patient states he felt a little dizzy after standing up earlier, however states this is improved. Recently had negative COVID test. CXR with bilateral interstitial infiltrate pattern. Pulmonary perfusion imaging was performed without ventilatory scan and was interpreted by radiology as high probability for PE given the bilateral perfusion defects, on chest x-ray it appears that the same pattern as the interstitial infiltrate however. Labs significant for WBC 14.8, Hb 13.7 platelets 142, NA 138, K4.1, BUN 49, CR 1.9, glucose 204, lactic acid 3.3, INR 1.2, AST 45, BNP 4329, troponin 0 0.042. EKG with QRS consistent with prior inferolateral infarct. ED had given lovenox for concern for PE. Ramirez placed and lasix given. Admitted for further care under investigation for COVID 19. 05/25: Some rincon tinged urine for Ramirez. No clots noted. His breathing is improved. Changed to heparin and warfarin as he was given Lovenox in the ED and weightbase protocol will not work for this. His chest pressure is improved. Still on 12 L facemask O2. COVID 19 negative Afebrile overnight. 2.8 L urine output, still rincon red. Still requiring 15 L facemask O2. Irrigating bladder this morning, he is having some pain and passing some clots. Addendum: Transferred to ICU per pulmonology. I have reassessed patient bedside in ICU, found to have non-occlusive DVTs bilaterally in lower legs above popliteal fossa. CC time 48 minutes Vitals Vitals Vital Signs Date Time Temp Pulse Resp B/P (MAP) Pulse Ox O2 Delivery O2 Flow Rate FiO2 05/26/20 07:33 19 97 Venturi Mask 15.0 05/26/20 07:00 96.5 70 136/60 (85) 96.5 Physical Exam General: Alert, Oriented X3, Cooperative, mild distress Heart: Regular rate (SR) Lungs: Clear Abdomen: Other (obese) Extremities: No cyanosis Skin: No breakdown Labs LABS Laboratory Tests Test 05/25/20 09:05 05/25/20 12:35 05/25/20 13:00 05/25/20 16:21 D-Dimer (Tania) 18.63 ug/mlFEU (0.00-0.50) Lactic Acid Level 2.6 mmol/L (0.4-2.0) 2.6 mmol/L (0.4-2.0) Troponin I Quantitative 0.020 ng/mL (0.000-0.055) Procalcitonin < 0.10 ng/mL (0.00-0.10) Glucose (Fingerstick) 183 mg/dL (70-99) 161 mg/dL (70-99) Test 05/26/20 02:30 05/26/20 06:17 05/26/20 07:07 Hemoglobin 13.5 g/dL (13.0-17.5) 12.9 g/dL (13.0-17.5) Prothrombin Time 14.3 SEC (11.7-14.0) Prothromb Time International Ratio 1.2 (0.8-1.1) Heparin Anti-Xa Act, Unfractionated 0.36 IU/mL (0.30-0.70) Lactic Acid Level 1.7 mmol/L (0.4-2.0) Glucose (Fingerstick) 190 mg/dL (70-99) Assessment and Plan Assessmemt and Plan Problems Medical Problems: (1) Chest pressure Status: Acute (2) Congestive heart failure (CHF) Status: Acute Comment Review of Relevant I have reviewed the following items jm (where applicable) has been applied. Labs Laboratory Tests Test 05/24/20 12:17 05/24/20 12:22 05/24/20 13:05 05/24/20 22:08 White Blood Count 14.8 x10^3/uL (4.0-11.0) Red Blood Count 4.34 x10^6/uL (4.30-5.70) Hemoglobin 13.7 g/dL (13.0-17.5) Hematocrit 41.0 % (39.0-53.0) Mean Corpuscular Volume 94 fL (79-100) Mean Corpuscular Hemoglobin 32 pg (25-35) Mean Corpuscular Hemoglobin Concent 33 g/dL (31-37) Red Cell Distribution Width 15.5 % (11.5-14.5) Platelet Count 142 x10^3/uL (140-400) Neutrophils (%) (Auto) 88 % (31-73) Lymphocytes (%) (Auto) 6 % (24-48) Monocytes (%) (Auto) 5 % (0-9) Eosinophils (%) (Auto) 0 % (0-3) Basophils (%) (Auto) 1 % (0-3) Neutrophils # (Auto) 13.0 x10^3/uL (1.8-7.7) Lymphocytes # (Auto) 0.8 x10^3/uL (1.0-4.8) Monocytes # (Auto) 0.8 x10^3/uL (0.0-1.1) Eosinophils # (Auto) 0.1 x10^3/uL (0.0-0.7) Basophils # (Auto) 0.1 x10^3/uL (0.0-0.2) Segmented Neutrophils % 85 % (35-66) Band Neutrophils % 3 % (0-9) Lymphocytes % 5 % (24-48) Monocytes % 5 % (0-10) Eosinophils % 2 % (0-5) Platelet Estimate Adequate (ADEQUATE) Anisocytosis Slight Prothrombin Time 14.9 SEC (11.7-14.0) Prothromb Time International Ratio 1.2 (0.8-1.1) Sodium Level 138 mmol/L (136-145) Potassium Level 4.1 mmol/L (3.5-5.1) Chloride Level 101 mmol/L (98-107) Carbon Dioxide Level 20 mmol/L (21-32) Anion Gap 17 (6-14) Blood Urea Nitrogen 44 mg/dL (8-26) Creatinine 1.9 mg/dL (0.7-1.3) Estimated GFR (Cockcroft-Gault) 35.5 BUN/Creatinine Ratio 23 (6-20) Glucose Level 214 mg/dL (70-99) Lactic Acid Level 3.3 mmol/L (0.4-2.0) Calcium Level 8.8 mg/dL (8.5-10.1) Magnesium Level 2.4 mg/dL (1.8-2.4) Total Bilirubin 0.7 mg/dL (0.2-1.0) Aspartate Amino Transf (AST/SGOT) 45 U/L (15-37) Alanine Aminotransferase (ALT/SGPT) 51 U/L (16-63) Alkaline Phosphatase 130 U/L (46-116) Troponin I Quantitative 0.042 ng/mL (0.000-0.055) KO-Kom-Q-Type Natriuretic Peptide 4329 pg/mL (0-124) Total Protein 7.2 g/dL (6.4-8.2) Albumin 3.4 g/dL (3.4-5.0) Albumin/Globulin Ratio 0.9 (1.0-1.7) Procalcitonin < 0.10 ng/mL (0.00-0.10) Urine Collection Type Unknown Urine Color Yellow Urine Clarity Cloudy Urine pH 5.0 (<5.0-8.0) Urine Specific [place] 1.020 (1.000-1.030) Urine Protein 30 mg/dL (NEG-TRACE) Urine Glucose (UA) Negative mg/dL (NEG) Urine Ketones (Stick) Negative mg/dL (NEG) Urine Blood Trace (NEG) Urine Nitrite Negative (NEG) Urine Bilirubin Negative (NEG) Urine Urobilinogen Dipstick 1.0 mg/dL (0.2 mg/dL) Urine Leukocyte Esterase Trace (NEG) Urine RBC 6-10 /HPF (0-2) Urine WBC 11-20 /HPF (0-4) Urine Squamous Epithelial Cells Few /LPF Urine Transitional Epithelial Cells Few /LPF Urine Bacteria 0 /HPF (0-FEW) Urine Hyaline Casts Many /HPF Urine Mucus Marked /LPF O2 Saturation 91 % (92-99) Arterial Blood pH 7.42 (7.35-7.45) Arterial Blood pCO2 at Patient Temp 28 mmHg (35-46) Arterial Blood pO2 at Patient Temp 62 mmHg (65-108) Arterial Blood HCO3 17 mmol/L (21-28) Arterial Blood Base Excess -6 mmol/L (-3-3) FiO2 100 Glucose (Fingerstick) 173 mg/dL (70-99) Test 05/25/20 00:05 05/25/20 03:15 05/25/20 07:48 05/25/20 09:05 Coronavirus (PCR) Not detected (Not Detected) White Blood Count 11.7 x10^3/uL (4.0-11.0) Red Blood Count 4.28 x10^6/uL (4.30-5.70) Hemoglobin 13.5 g/dL (13.0-17.5) Hematocrit 41.4 % (39.0-53.0) Mean Corpuscular Volume 97 fL (79-100) Mean Corpuscular Hemoglobin 32 pg (25-35) Mean Corpuscular Hemoglobin Concent 33 g/dL (31-37) Red Cell Distribution Width 15.7 % (11.5-14.5) Platelet Count 112 x10^3/uL (140-400) Neutrophils (%) (Auto) 75 % (31-73) Lymphocytes (%) (Auto) 16 % (24-48) Monocytes (%) (Auto) 8 % (0-9) Eosinophils (%) (Auto) 1 % (0-3) Basophils (%) (Auto) 0 % (0-3) Neutrophils # (Auto) 8.7 x10^3/uL (1.8-7.7) Lymphocytes # (Auto) 1.9 x10^3/uL (1.0-4.8) Monocytes # (Auto) 0.9 x10^3/uL (0.0-1.1) Eosinophils # (Auto) 0.2 x10^3/uL (0.0-0.7) Basophils # (Auto) 0.0 x10^3/uL (0.0-0.2) Sodium Level 140 mmol/L (136-145) Potassium Level 4.0 mmol/L (3.5-5.1) Chloride Level 102 mmol/L (98-107) Carbon Dioxide Level 27 mmol/L (21-32) Anion Gap 11 (6-14) Blood Urea Nitrogen 42 mg/dL (8-26) Creatinine 1.7 mg/dL (0.7-1.3) Estimated GFR (Cockcroft-Gault) 40.4 Glucose Level 152 mg/dL (70-99) Lactic Acid Level 1.5 mmol/L (0.4-2.0) 2.6 mmol/L (0.4-2.0) Calcium Level 9.1 mg/dL (8.5-10.1) Troponin I Quantitative 0.050 ng/mL (0.000-0.055) 0.020 ng/mL (0.000-0.055) Glucose (Fingerstick) 164 mg/dL (70-99) D-Dimer (Tania) 18.63 ug/mlFEU (0.00-0.50) Procalcitonin < 0.10 ng/mL (0.00-0.10) Test 05/25/20 12:35 05/25/20 13:00 05/25/20 16:21 05/26/20 02:30 Glucose (Fingerstick) 183 mg/dL (70-99) 161 mg/dL (70-99) Lactic Acid Level 2.6 mmol/L (0.4-2.0) 1.7 mmol/L (0.4-2.0) Hemoglobin 13.5 g/dL (13.0-17.5) Prothrombin Time 14.3 SEC (11.7-14.0) Prothromb Time International Ratio 1.2 (0.8-1.1) Heparin Anti-Xa Act, Unfractionated 0.36 IU/mL (0.30-0.70) Test 05/26/20 06:17 05/26/20 07:07 Hemoglobin 12.9 g/dL (13.0-17.5) Glucose (Fingerstick) 190 mg/dL (70-99) Laboratory Tests Test 05/25/20 09:05 05/25/20 12:35 05/25/20 13:00 05/25/20 16:21 D-Dimer (Tania) 18.63 ug/mlFEU (0.00-0.50) Lactic Acid Level 2.6 mmol/L (0.4-2.0) 2.6 mmol/L (0.4-2.0) Troponin I Quantitative 0.020 ng/mL (0.000-0.055) Procalcitonin < 0.10 ng/mL (0.00-0.10) Glucose (Fingerstick) 183 mg/dL (70-99) 161 mg/dL (70-99) Test 05/26/20 02:30 05/26/20 06:17 05/26/20 07:07 Hemoglobin 13.5 g/dL (13.0-17.5) 12.9 g/dL (13.0-17.5) Prothrombin Time 14.3 SEC (11.7-14.0) Prothromb Time International Ratio 1.2 (0.8-1.1) Heparin Anti-Xa Act, Unfractionated 0.36 IU/mL (0.30-0.70) Lactic Acid Level 1.7 mmol/L (0.4-2.0) Glucose (Fingerstick) 190 mg/dL (70-99) Microbiology 05/24/20 Urine Culture - Final, Complete 05/24/20 Blood Culture - Preliminary, Resulted NO GROWTH AFTER 1 DAY Medications Current Medications Nitroglycerin (Nitrostat) 0.4 mg PRN Q5MIN PRN SL CHEST PAIN Last administered on 05/24/20at 12:22; Start 05/24/20 at 12:00 Acetaminophen/ Hydrocodone Bitart (Lortab 5/325) 1 tab 1X ONCE PO Last administered on 05/24/20at 12:56; Start 05/24/20 at 12:45; Stop 05/24/20 at 12:46; Status DC Furosemide (Lasix) 40 mg 1X ONCE IVP Last administered on 05/24/20at 15:43; Start 05/24/20 at 13:00; Stop 05/24/20 at 13:01; Status DC Enoxaparin Sodium (Lovenox 100mg Syringe) 100 mg 1X ONCE SQ Last administered on 05/24/20at 15:20; Start 05/24/20 at 14:15; Stop 05/24/20 at 14:29; Status DC Morphine Sulfate (Morphine Sulfate) 2 mg 1X ONCE IV Last administered on 05/24/20at 15:17; Start 05/24/20 at 14:30; Stop 05/24/20 at 14:37; Status DC Ondansetron HCl (Zofran) 4 mg PRN Q4HRS PRN IV NAUSEA/VOMITING; Start 05/24/20 at 14:45 Acetaminophen (Tylenol) 650 mg PRN Q4HRS PRN PO TEMP OVER 100.4F OR MILD PAIN; Start 05/24/20 at 14:45 Aspirin (Ecotrin) 81 mg DAILY PO Last administered on 05/25/20 09:54; Start 05/25/20 at 09:00 Atorvastatin Calcium (Lipitor) 20 mg HS PO Last administered on 05/25/20at 20:04; Start 05/24/20 at 21:00 Clopidogrel Bisulfate (Plavix) 75 mg DAILY PO Last administered on 05/25/20at 09:54; Start 05/25/20 at 09:00 Ferrous Sulfate (Feosol) 325 mg DAILY PO Last administered on 05/25/20 09:54; Start 05/25/20 at 09:00 Fluticasone Propionate (Flonase) 2 spray DAILY NS Last administered on 05/25/20 09:48; Start 05/25/20 at 09:00 Acetaminophen/ Hydrocodone Bitart (Lortab 5/325) 1 tab PRN Q6HRS PRN PO MODERATE PAIN Last administered on 05/26/20 02:06; Start 05/24/20 at 18:15 Isosorbide Mononitrate (Imdur) 60 mg DAILY PO Last administered on 05/25/20at 09:53; Start 05/25/20 at 09:00 Pantoprazole Sodium (Protonix) 40 mg DAILYAC PO ; Start 05/25/20 at 07:30; Stop 05/25/20 at 09:30; Status DC Tamsulosin HCl (Flomax) 0.4 mg HS PO Last administered on 05/25/20at 20:05; Start 05/24/20 at 21:00 Metoprolol Succinate (Toprol Xl) 50 mg DAILY PO Last administered on 05/25/20at 09:55; Start 05/25/20 at 09:00 Insulin Human Lispro (HumaLOG) 0-9 UNITS TIDACHC SQ Last administered on 05/25/20at 13:05; Start 05/24/20 at 21:00 Dextrose (Dextrose 50%-Water Syringe) 12.5 gm PRN Q15MIN PRN IV SEE COMMENTS; Start 05/24/20 at 18:15 Furosemide (Lasix) 40 mg [id number] IVP Last administered on 05/25/20at 12:52; Start 05/25/20 at 09:00; Stop 05/25/20 at 14:01; Status DC Morphine Sulfate (Morphine Sulfate) 4 mg PRN Q4HRS PRN IV PAIN Last administered on 05/26/20at 07:03; Start 05/24/20 at 20:45 Pharmacy Consult (C.diff Med Screen By Rx) 1 each 1X ONCE MC ; Start 05/25/20 at 09:00; Stop 05/25/20 at 09:01; Status DC Famotidine (Pepcid) 20 mg BID PO Last administered on 05/25/20at 20:04; Start 05/25/20 at 21:00 Lactobacillus Rhamnosus (Culturelle) 1 cap BID PO Last administered on 05/25/20at 20:04; Start 05/25/20 at 10:00 Heparin Sodium/ Dextrose 250 ml @ 0 mls/hr CONT PRN IV PER PROTOCOL Last administered on 05/25/20at 20:10; Start 05/25/20 at 14:00 Heparin Sodium (Porcine) (Heparin Sodium) 5,650 unit PRN Q6HRS PRN IV FOR UFH LEVEL LESS THAN 0.2; Start 05/25/20 at 14:00 Heparin Sodium (Porcine) (Heparin Sodium) 2,800 unit PRN Q6HRS PRN IV FOR UFH LEVEL 0.2 - 0.29; Start 05/25/20 at 14:00 Warfarin Sodium (Coumadin Per Pharmacy) 1 each PRN DAILY PRN MC PER PROTOCOL Last administered on 05/25/20at 14:08; Start 05/25/20 at 14:00 Furosemide (Lasix) 40 mg DAILY PO ; Start 05/26/20 at 09:00 Active Scripts Active Hydrocodone-Apap 5-325 (Hydrocodone Bit/Acetaminophen) 1 Tab Tablet 1 Tab PO PRN Q6HRS PRN 5 Days Amox Tr-K Clv 500-125 Mg Tab (Amoxicillin/Potassium Clav) 1 Each Tablet 1 Tab PO BID 10 Days Aspirin Ec (Aspirin) 81 Mg Tablet.dr 1 Tab PO DAILY Reported Flomax (Tamsulosin Hcl) 0.4 Mg Cap.er.24h 1 Cap PO HS Fluticasone Propionate Nasal [place] (Fluticasone Propionate) 16 Gm [place].susp 2 [place] NS DAILY Linzess (Linaclotide) 145 Mcg Capsule 145 Mcg PO 3X/WEEK Fexofenadine Hcl 180 Mg Tablet 1 Tab PO DAILY Vitamin C (Ascorbic Acid) 500 Mg Capsule.er 1,000 Mg PO DAILY One Daily For Men Tablet (Multivits-Minerals/Fa/Lycopene) 1 Each Tablet 1 Tab PO DAILY 30 Days Iron (Ferrous Sulfate) 325 Mg Tablet 65 Mg PO DAILY Allopurinol 300 Mg Tablet 1 Tab PO DAILY Vitamin D2 (Ergocalciferol (Vitamin D2)) 50,000 Unit Capsule 50,000 Unit PO WEEKLY Dose given on the Take on Pantoprazole Sodium (Pantoprazole Sodium) 40 Mg Tablet. 1 Tab PO DAILY Gave this morning take tomorrow morning Tizanidine Hcl 4 Mg Tablet 1 Tab PO QHS Gave dose last night Take tonight before bedtime Vascepa (Icosapent Ethyl) 1 Gm Capsule 1 Gm PO Not given on this admission Take as previoulsy instructed Atorvastatin Calcium 20 Mg Tablet 1 Tab PO HS Gave last night Take tonight Clopidogrel (Clopidogrel Bisulfate) 75 Mg Tablet 1 Tab PO DAILY Gave this morning take tomorrow morning Isosorbide Mononitrate Er (Isosorbide Mononitrate) 30 Mg Tab.er.24h 60 Mg PO DAILY Gave this morning take tomorrow morning Repaglinide 1 Mg Tablet 1 Mg PO Not given on this admission Continue as previously instructed Toprol Xl (Metoprolol Succinate) 50 Mg Tab.er.24h 1 Tab PO DAILY Gave this morning take tomorrow morning Vitals/I & O Vital Sign - Last 24 Hours 05/25/20 05/25/20 05/25/20 05/25/20 09:53 09:55 09:55 10:55 Pulse 79 79 B/P (MAP) 138/70 138/70 Pulse Ox 93 93 O2 Delivery Room Air Room Air O2 Flow Rate 15.0 15.0 05/25/20 05/25/20 05/25/20 05/25/20 11:00 15:00 16:48 17:18 Temp 97.1 97.7 97.1 97.7 Pulse 69 71 Resp 20 B/P (MAP) 141/74 (96) 111/67 (82) Pulse Ox 93 98 98 98 O2 Delivery Room Air Room Air Room Air Room Air O2 Flow Rate 15.0 15.0 15.0 15.0 05/25/20 05/25/20 05/25/20 05/25/20 19:00 20:00 20:05 21:05 Temp 97.2 97.2 Pulse 73 Resp 20 20 B/P (MAP) 123/73 (90) Pulse Ox 98 98 98 O2 Delivery Venturi Mask Venturi Mask Venturi Mask Venturi Mask O2 Flow Rate 15.0 15.0 15.0 15.0 05/25/20 05/26/20 05/26/20 05/26/20 23:00 02:06 03:06 03:13 Temp 97.2 98.2 97.2 98.2 Pulse 65 68 Resp 20 22 20 22 B/P (MAP) 127/70 (89) 143/65 (91) Pulse Ox 98 98 98 98 O2 Delivery Venturi Mask Venturi Mask Venturi Mask High Flow Nasal Cannula O2 Flow Rate 15.0 15.0 15.0 15.0 05/26/20 05/26/20 05/26/20 07:00 07:03 07:33 Temp 96.5 96.5 Pulse 70 Resp 19 19 B/P (MAP) 136/60 (85) Pulse Ox 96 97 97 O2 Delivery Venturi Mask Venturi Mask Venturi Mask O2 Flow Rate 15.0 15.0 15.0 Intake and Output 05/25/20 05/25/20 05/26/20 15:00 23:00 07:00 Intake Total 480 ml 440 ml Output Total 1900 ml 300 ml 600 ml Balance -1900 ml 180 ml -160 ml Justicifation of Admission Dx: Justifications for Admission: Justification of Admission Dx: Yes CHF: Hemodynamic Instability Angina: Symp at Rest TIMA LEDESMA MD May 26, 2020 08:23
[2020-05-26] MEDS: HEPARIN 25,000UTS/250ML PREMIX 250 ML IV PRN ×2 (08:29→19:34)
[2020-05-26] MEDS: METOPROLOL SUCC 24HR ER 50 MG TAB.ER.24H. PO SCH (09:00)
[2020-05-26] MEDS: FAMOTIDINE 20 MG TABLET. PO SCH ×2 (09:00→21:08)
[2020-05-26] MEDS: FLUTICASONE 50MCG/NASAL SPRAY 16GM BOTTLE. NS SCH (09:03)
[2020-05-26] MEDS: ONDANSETRON PF 4 MG/2 ML VIAL. IV PRN (09:04)
[2020-05-26] MEDS: FERROUS SULFATE 325 MG TABLET. PO SCH (09:04)
[2020-05-26] MEDS: ACETAMINOPHEN 325 MG TABLET. PO PRN (09:04)
[2020-05-26] MEDS: FUROSEMIDE 40 MG TABLET. PO SCH (09:05)
[2020-05-26] MEDS: CLOPIDOGREL BISULFATE 75 MG TABLET PO SCH (09:05)
[2020-05-26] MEDS: LACTOBACILLUS RHAMNOSUS GG 1 CAPSULE. PO SCH ×2 (09:05→21:08)
[2020-05-26] MEDS: ASPIRIN ENTERIC COATED 81 MG TABLET.DR. PO SCH (09:05)
[2020-05-26 09:28] LABS: BASO # 0.1 x10^3/uL (0.0-0.2); BASO % 1 % (0-3); EOS # 0.2 x10^3/uL (0.0-0.7); EOS % 2 % (0-3); HEMATOCRIT 39.3 % (39.0-53.0); HEMOGLOBIN 13.2 g/dL (13.0-17.5); LYMPH # 1.3 x10^3/uL (1.0-4.8); LYMPH % 13 % (24-48); MEAN CORPUSCULAR HEMOGLOBIN 32 pg (25-35); MEAN CORPUSCULAR HGB CONC 34 g/dL (31-37); MEAN CORPUSCULAR VOLUME 95 fL (79-100); MONO # 0.7 x10^3/uL (0.0-1.1); MONO % 7 % (0-9); NEUT # 7.5 x10^3/uL (1.8-7.7); NEUT % 77 % (31-73); PLATELET COUNT 106 x10^3/uL (140-400); RED BLOOD COUNT 4.13 x10^6/uL (4.30-5.70); RED CELL DISTRIBUTION WIDTH 15.4 % (11.5-14.5); WHITE BLOOD COUNT 9.8 x10^3/uL (4.0-11.0)
[2020-05-26 09:48] LABS: CALCIUM 8.8 mg/dL (8.5-10.1); CREATININE 1.6 mg/dL (0.7-1.3); GFR 43.3; POTASSIUM 4.1 mmol/L (3.5-5.1)
--- NOTE | 2020-05-26 09:49 | PDOC ---
PULMONARY PROGRESS NOTES Subjective remains on 15 litres canula ramirez obstructed with clots Vitals Vital Signs Date Time Temp Pulse Resp B/P (MAP) Pulse Ox O2 Delivery O2 Flow Rate FiO2 05/26/20 08:00 Venturi Mask 15.0 05/26/20 07:33 19 97 05/26/20 07:00 96.5 70 136/60 (85) 96.5 ROS: No Chest Pain, No Increase Cough General: Alert Lungs: Clear Cardiovascular: S1 Abdomen: Soft Neuro Exam: Alert Extremities: Other (trace edema) Labs Laboratory Tests Test 05/24/20 12:17 05/24/20 12:22 05/24/20 13:05 05/24/20 22:08 White Blood Count 14.8 x10^3/uL (4.0-11.0) Red Blood Count 4.34 x10^6/uL (4.30-5.70) Hemoglobin 13.7 g/dL (13.0-17.5) Hematocrit 41.0 % (39.0-53.0) Mean Corpuscular Volume 94 fL (79-100) Mean Corpuscular Hemoglobin 32 pg (25-35) Mean Corpuscular Hemoglobin Concent 33 g/dL (31-37) Red Cell Distribution Width 15.5 % (11.5-14.5) Platelet Count 142 x10^3/uL (140-400) Neutrophils (%) (Auto) 88 % (31-73) Lymphocytes (%) (Auto) 6 % (24-48) Monocytes (%) (Auto) 5 % (0-9) Eosinophils (%) (Auto) 0 % (0-3) Basophils (%) (Auto) 1 % (0-3) Neutrophils # (Auto) 13.0 x10^3/uL (1.8-7.7) Lymphocytes # (Auto) 0.8 x10^3/uL (1.0-4.8) Monocytes # (Auto) 0.8 x10^3/uL (0.0-1.1) Eosinophils # (Auto) 0.1 x10^3/uL (0.0-0.7) Basophils # (Auto) 0.1 x10^3/uL (0.0-0.2) Segmented Neutrophils % 85 % (35-66) Band Neutrophils % 3 % (0-9) Lymphocytes % 5 % (24-48) Monocytes % 5 % (0-10) Eosinophils % 2 % (0-5) Platelet Estimate Adequate (ADEQUATE) Anisocytosis Slight Prothrombin Time 14.9 SEC (11.7-14.0) Prothromb Time International Ratio 1.2 (0.8-1.1) Sodium Level 138 mmol/L (136-145) Potassium Level 4.1 mmol/L (3.5-5.1) Chloride Level 101 mmol/L (98-107) Carbon Dioxide Level 20 mmol/L (21-32) Anion Gap 17 (6-14) Blood Urea Nitrogen 44 mg/dL (8-26) Creatinine 1.9 mg/dL (0.7-1.3) Estimated GFR (Cockcroft-Gault) 35.5 BUN/Creatinine Ratio 23 (6-20) Glucose Level 214 mg/dL (70-99) Lactic Acid Level 3.3 mmol/L (0.4-2.0) Calcium Level 8.8 mg/dL (8.5-10.1) Magnesium Level 2.4 mg/dL (1.8-2.4) Total Bilirubin 0.7 mg/dL (0.2-1.0) Aspartate Amino Transf (AST/SGOT) 45 U/L (15-37) Alanine Aminotransferase (ALT/SGPT) 51 U/L (16-63) Alkaline Phosphatase 130 U/L (46-116) Troponin I Quantitative 0.042 ng/mL (0.000-0.055) PC-Ohi-P-Type Natriuretic Peptide 4329 pg/mL (0-124) Total Protein 7.2 g/dL (6.4-8.2) Albumin 3.4 g/dL (3.4-5.0) Albumin/Globulin Ratio 0.9 (1.0-1.7) Procalcitonin < 0.10 ng/mL (0.00-0.10) Urine Collection Type Unknown Urine Color Yellow Urine Clarity Cloudy Urine pH 5.0 (<5.0-8.0) Urine Specific [place] 1.020 (1.000-1.030) Urine Protein 30 mg/dL (NEG-TRACE) Urine Glucose (UA) Negative mg/dL (NEG) Urine Ketones (Stick) Negative mg/dL (NEG) Urine Blood Trace (NEG) Urine Nitrite Negative (NEG) Urine Bilirubin Negative (NEG) Urine Urobilinogen Dipstick 1.0 mg/dL (0.2 mg/dL) Urine Leukocyte Esterase Trace (NEG) Urine RBC 6-10 /HPF (0-2) Urine WBC 11-20 /HPF (0-4) Urine Squamous Epithelial Cells Few /LPF Urine Transitional Epithelial Cells Few /LPF Urine Bacteria 0 /HPF (0-FEW) Urine Hyaline Casts Many /HPF Urine Mucus Marked /LPF O2 Saturation 91 % (92-99) Arterial Blood pH 7.42 (7.35-7.45) Arterial Blood pCO2 at Patient Temp 28 mmHg (35-46) Arterial Blood pO2 at Patient Temp 62 mmHg (65-108) Arterial Blood HCO3 17 mmol/L (21-28) Arterial Blood Base Excess -6 mmol/L (-3-3) FiO2 100 Glucose (Fingerstick) 173 mg/dL (70-99) Test 05/25/20 00:05 05/25/20 03:15 05/25/20 07:48 05/25/20 09:05 Coronavirus (PCR) Not detected (Not Detected) White Blood Count 11.7 x10^3/uL (4.0-11.0) Red Blood Count 4.28 x10^6/uL (4.30-5.70) Hemoglobin 13.5 g/dL (13.0-17.5) Hematocrit 41.4 % (39.0-53.0) Mean Corpuscular Volume 97 fL (79-100) Mean Corpuscular Hemoglobin 32 pg (25-35) Mean Corpuscular Hemoglobin Concent 33 g/dL (31-37) Red Cell Distribution Width 15.7 % (11.5-14.5) Platelet Count 112 x10^3/uL (140-400) Neutrophils (%) (Auto) 75 % (31-73) Lymphocytes (%) (Auto) 16 % (24-48) Monocytes (%) (Auto) 8 % (0-9) Eosinophils (%) (Auto) 1 % (0-3) Basophils (%) (Auto) 0 % (0-3) Neutrophils # (Auto) 8.7 x10^3/uL (1.8-7.7) Lymphocytes # (Auto) 1.9 x10^3/uL (1.0-4.8) Monocytes # (Auto) 0.9 x10^3/uL (0.0-1.1) Eosinophils # (Auto) 0.2 x10^3/uL (0.0-0.7) Basophils # (Auto) 0.0 x10^3/uL (0.0-0.2) Sodium Level 140 mmol/L (136-145) Potassium Level 4.0 mmol/L (3.5-5.1) Chloride Level 102 mmol/L (98-107) Carbon Dioxide Level 27 mmol/L (21-32) Anion Gap 11 (6-14) Blood Urea Nitrogen 42 mg/dL (8-26) Creatinine 1.7 mg/dL (0.7-1.3) Estimated GFR (Cockcroft-Gault) 40.4 Glucose Level 152 mg/dL (70-99) Lactic Acid Level 1.5 mmol/L (0.4-2.0) 2.6 mmol/L (0.4-2.0) Calcium Level 9.1 mg/dL (8.5-10.1) Troponin I Quantitative 0.050 ng/mL (0.000-0.055) 0.020 ng/mL (0.000-0.055) Glucose (Fingerstick) 164 mg/dL (70-99) D-Dimer (Tania) 18.63 ug/mlFEU (0.00-0.50) Procalcitonin < 0.10 ng/mL (0.00-0.10) Test 05/25/20 12:35 05/25/20 13:00 05/25/20 16:21 05/26/20 02:30 Glucose (Fingerstick) 183 mg/dL (70-99) 161 mg/dL (70-99) Lactic Acid Level 2.6 mmol/L (0.4-2.0) 1.7 mmol/L (0.4-2.0) Hemoglobin 13.5 g/dL (13.0-17.5) Prothrombin Time 14.3 SEC (11.7-14.0) Prothromb Time International Ratio 1.2 (0.8-1.1) Heparin Anti-Xa Act, Unfractionated 0.36 IU/mL (0.30-0.70) Test 7/25/20 06:17 05/26/20 07:07 05/26/20 08:50 Hemoglobin 12.9 g/dL (13.0-17.5) 13.2 g/dL (13.0-17.5) Glucose (Fingerstick) 190 mg/dL (70-99) White Blood Count 9.8 x10^3/uL (4.0-11.0) Red Blood Count 4.13 x10^6/uL (4.30-5.70) Hematocrit 39.3 % (39.0-53.0) Mean Corpuscular Volume 95 fL (79-100) Mean Corpuscular Hemoglobin 32 pg (25-35) Mean Corpuscular Hemoglobin Concent 34 g/dL (31-37) Red Cell Distribution Width 15.4 % (11.5-14.5) Platelet Count 106 x10^3/uL (140-400) Neutrophils (%) (Auto) 77 % (31-73) Lymphocytes (%) (Auto) 13 % (24-48) Monocytes (%) (Auto) 7 % (0-9) Eosinophils (%) (Auto) 2 % (0-3) Basophils (%) (Auto) 1 % (0-3) Neutrophils # (Auto) 7.5 x10^3/uL (1.8-7.7) Lymphocytes # (Auto) 1.3 x10^3/uL (1.0-4.8) Monocytes # (Auto) 0.7 x10^3/uL (0.0-1.1) Eosinophils # (Auto) 0.2 x10^3/uL (0.0-0.7) Basophils # (Auto) 0.1 x10^3/uL (0.0-0.2) Heparin Anti-Xa Act, Unfractionated 0.14 IU/mL (0.30-0.70) Laboratory Tests Test 05/25/20 12:35 05/25/20 13:00 05/25/20 16:21 05/26/20 02:30 Glucose (Fingerstick) 183 mg/dL (70-99) 161 mg/dL (70-99) Lactic Acid Level 2.6 mmol/L (0.4-2.0) 1.7 mmol/L (0.4-2.0) Hemoglobin 13.5 g/dL (13.0-17.5) Prothrombin Time 14.3 SEC (11.7-14.0) Prothromb Time International Ratio 1.2 (0.8-1.1) Heparin Anti-Xa Act, Unfractionated 0.36 IU/mL (0.30-0.70) Test 05/26/20 06:17 05/26/20 07:07 05/26/20 08:50 Hemoglobin 12.9 g/dL (13.0-17.5) 13.2 g/dL (13.0-17.5) Glucose (Fingerstick) 190 mg/dL (70-99) White Blood Count 9.8 x10^3/uL (4.0-11.0) Red Blood Count 4.13 x10^6/uL (4.30-5.70) Hematocrit 39.3 % (39.0-53.0) Mean Corpuscular Volume 95 fL (79-100) Mean Corpuscular Hemoglobin 32 pg (25-35) Mean Corpuscular Hemoglobin Concent 34 g/dL (31-37) Red Cell Distribution Width 15.4 % (11.5-14.5) Platelet Count 106 x10^3/uL (140-400) Neutrophils (%) (Auto) 77 % (31-73) Lymphocytes (%) (Auto) 13 % (24-48) Monocytes (%) (Auto) 7 % (0-9) Eosinophils (%) (Auto) 2 % (0-3) Basophils (%) (Auto) 1 % (0-3) Neutrophils # (Auto) 7.5 x10^3/uL (1.8-7.7) Lymphocytes # (Auto) 1.3 x10^3/uL (1.0-4.8) Monocytes # (Auto) 0.7 x10^3/uL (0.0-1.1) Eosinophils # (Auto) 0.2 x10^3/uL (0.0-0.7) Basophils # (Auto) 0.1 x10^3/uL (0.0-0.2) Heparin Anti-Xa Act, Unfractionated 0.14 IU/mL (0.30-0.70) Medications Active Scripts Medications Dose Route/Sig Max Daily Dose Days Date Category Dose Instructions Hydrocodone-Apap 5-325 (Hydrocodone Bit/Acetaminophen) 1 Tab Tablet 1 Tab PO PRN Q6HRS PRN 5 05/18/20 Rx Amox Tr-K Clv 500-125 Mg Tab (Amoxicillin/Potassium Clav) 1 Each Tablet 1 Tab PO BID 10 05/15/20 Rx Flomax (Tamsulosin Hcl) 0.4 Mg Cap.er.24h 1 Cap PO HS 05/09/20 Reported Fluticasone Propionate Nasal Morrison (Fluticasone Propionate) 16 Gm Morrison.susp 2 Morrison NS DAILY 05/09/20 Reported Linzess (Linaclotide) 145 Mcg Capsule 145 Mcg PO 3X/WEEK 05/09/20 Reported Fexofenadine Hcl 180 Mg Tablet 1 Tab PO DAILY 05/09/20 Reported Vitamin C (Ascorbic Acid) 500 Mg Capsule.er 1,000 Mg PO DAILY 05/09/20 Reported One Daily For Men Tablet (Multivits-Minerals/Fa/Lycopene) 1 Each Tablet 1 Tab PO DAILY 30 05/09/20 Reported Iron (Ferrous Sulfate) 325 Mg Tablet 65 Mg PO DAILY 05/09/20 Reported Allopurinol 300 Mg Tablet 1 Tab PO DAILY 05/09/20 Reported Aspirin Ec (Aspirin) 81 Mg Tablet.dr 1 Tab PO DAILY 02/21/20 Rx Vitamin D2 (Ergocalciferol (Vitamin D2)) 50,000 Unit Capsule 50,000 Unit PO WEEKLY 05/29/16 Reported Dose given on the Take on Pantoprazole Sodium (Pantoprazole Sodium) 40 Mg Tablet.dr 1 Tab PO DAILY 04/30/16 Reported Gave this morning take tomorrow morning Tizanidine Hcl 4 Mg Tablet 1 Tab PO QHS 05/31/15 Reported Gave dose last night Take tonight before bedtime Vascepa (Icosapent Ethyl) 1 Gm Capsule 1 Gm PO 09/23/14 Reported Not given on this admission Take as previoulsy instructed Atorvastatin Calcium 20 Mg Tablet 1 Tab PO HS 09/23/14 Reported Gave last night Take tonight Clopidogrel (Clopidogrel Bisulfate) 75 Mg Tablet 1 Tab PO DAILY 09/23/14 Reported Gave this morning take tomorrow morning Isosorbide Mononitrate Er (Isosorbide Mononitrate) 30 Mg Tab.er.24h 60 Mg PO DAILY 09/23/14 Reported Gave this morning take tomorrow morning Repaglinide 1 Mg Tablet 1 Mg PO 09/23/14 Reported Not given on this admission Continue as previously instructed Toprol Xl (Metoprolol Succinate) 50 Mg Tab.er.24h 1 Tab PO DAILY 09/23/14 Reported Gave this morning take tomorrow morning Impression . 1. Acute hypoxic respiratory failure likely due to pulmonary embolism.Patient had a recent non-ST elevation myocardial infarction and right coronary artery stenting on 05/17. He was discharged on 05/22 to skilled care facility. He was discharged on nasal cannula. He now comes in with worsening hypoxia and intermediate to high probability perfusion scan. Chest x-ray shows mildly prominent interstitial marking, but no obvious congestive heart failure. Since there is no good explanation for the patient's hypoxia, I think clinically there is a strong suspicion for pulmonary embolism and we would initiate full-dose heparin. 2. Recent cardiac catheterization for coronary artery disease with right coronary artery stenting. 3. Underlying morbid obesity with a BMI of 54. 4. Acute kidney injury versus chronic kidney disease. 5. Clots around ramirez, obstructive uropathy Plan . 1. Continue present 15 liters of oxygen. 2. Discussed with RN. At this time, I will continue with full-dose heparinization for pulmonary embolism. Needs urology help. Not available at our hospital. 3. Once his renal function gets better, then we will do a CTA chest. 4. Obtain venous Dopplers of lower extremities. 5. Follow cardiology recommendations. 6. Weight loss is strongly emphasized. 7. Consider sleep study as an outpatient. 8. Neg COVID testing 9. Discussed with RN / transfer to ICU WASHINGTON HORVATH MD May 26, 2020 09:49
[2020-05-26] MEDS: ISOSORBIDE MONONITRATE ER 30 MG TAB.ER.24H PO SCH (10:04)
--- NOTE | 2020-05-26 11:17 | NUR ---
Pharmacy Warfarin Dosing Note S: Pharmacy consulted to assist with anticoagulation therapy started 05/26/20 O: HARPREET HERR is a 69 year old M with DVT/PE LABS: Last INR: 1.2 Last HGB: 14.3 Last HCT: 39.3 Last PLT: 106 Last dose of not ordered, not given given on 05/25/20 A:INR of 1.2 is below desired range. Target range for this patient is: 2 -3 P: Warfarin dose: 7.5 mg Today at 1600 Bridge Therapy: Heparin Therapeutic Next INR due 05/27/20 AM Pharmacy anticoagulation service will continue to follow. RENAY SANABIRA RPH, 05/26/20 [id number]
--- NOTE | 2020-05-26 11:23 | PDOC ---
PROGRESS NOTES Subjective Subjective on 15 L O2, no CP Objective Objective Vital Signs Date Time Temp Pulse Resp B/P (MAP) Pulse Ox O2 Delivery O2 Flow Rate FiO2 05/26/20 11:00 70 20 97 Venturi Mask 15.0 05/26/20 07:00 96.5 96.5 Intake and Output 05/26/20 07:00 Intake Total 920 ml Output Total 2800 ml Balance -1880 ml Intake Oral 680 ml Other 240 ml Output Urine Total 2800 ml Physical Exam Abdomen: Other (obese) Heart: Regular rate (SR) Extremities: No cyanosis General: Alert, Oriented X3 HEENT: Atraumatic Lungs: Other (diminished ) Neuro: Normal speech, Sensation intact Psych/Mental Status: Mental status NL, Other (anxious) Skin: No breakdown Assessment Assessment 1. Acute hypoxemic respiratory failure: Secondary to combination of acute on chronic diastolic heart failure and acute pulmonary embolism. Patient was started on heparin infusion by pulmonary team. Telemetry did not show any significant arrhythmias. COVID test negative. 2. Chest pain: doubt ACS, noncardiac and most probably pleuritic secondary to PE 3. CAD; s/p previous PCI/stents to the LCx and 1st diagonal. s/p PCI/JOELLE to the RCA 05/17/20. Trops are normal. EKG SR without acute changes. Clinically stable 4. Acute on chronic diastolic CHF, better compensated with diuresis 5. SUSANA: uses bipap 5. Hypertension; controlled 6. Hyperlipiemia; statin 7. DM2, per IM 8. SONIYA on CKD3 9. Morbid obesity 10. BPH with gross hematuria: likely trauma from ramirez insertion, per IM Plan Plan of Care Problems Medical Problems: (1) Chest pressure Status: Acute (2) Congestive heart failure (CHF) Status: Acute Comment Review of Relevant I have reviewed the following items jm (where applicable) has been applied. Labs Laboratory Tests Test 05/25/20 12:35 05/25/20 13:00 05/25/20 16:21 05/26/20 02:30 Glucose (Fingerstick) 183 mg/dL (70-99) 161 mg/dL (70-99) Lactic Acid Level 2.6 mmol/L (0.4-2.0) 1.7 mmol/L (0.4-2.0) Hemoglobin 13.5 g/dL (13.0-17.5) Prothrombin Time 14.3 SEC (11.7-14.0) Prothromb Time International Ratio 1.2 (0.8-1.1) Heparin Anti-Xa Act, Unfractionated 0.36 IU/mL (0.30-0.70) Test 05/26/20 06:17 05/26/20 07:07 05/26/20 08:50 Hemoglobin 12.9 g/dL (13.0-17.5) 13.2 g/dL (13.0-17.5) Glucose (Fingerstick) 190 mg/dL (70-99) White Blood Count 9.8 x10^3/uL (4.0-11.0) Red Blood Count 4.13 x10^6/uL (4.30-5.70) Hematocrit 39.3 % (39.0-53.0) Mean Corpuscular Volume 95 fL (79-100) Mean Corpuscular Hemoglobin 32 pg (25-35) Mean Corpuscular Hemoglobin Concent 34 g/dL (31-37) Red Cell Distribution Width 15.4 % (11.5-14.5) Platelet Count 106 x10^3/uL (140-400) Neutrophils (%) (Auto) 77 % (31-73) Lymphocytes (%) (Auto) 13 % (24-48) Monocytes (%) (Auto) 7 % (0-9) Eosinophils (%) (Auto) 2 % (0-3) Basophils (%) (Auto) 1 % (0-3) Neutrophils # (Auto) 7.5 x10^3/uL (1.8-7.7) Lymphocytes # (Auto) 1.3 x10^3/uL (1.0-4.8) Monocytes # (Auto) 0.7 x10^3/uL (0.0-1.1) Eosinophils # (Auto) 0.2 x10^3/uL (0.0-0.7) Basophils # (Auto) 0.1 x10^3/uL (0.0-0.2) Heparin Anti-Xa Act, Unfractionated 0.14 IU/mL (0.30-0.70) Sodium Level 139 mmol/L (136-145) Potassium Level 4.1 mmol/L (3.5-5.1) Chloride Level 100 mmol/L (98-107) Carbon Dioxide Level 29 mmol/L (21-32) Anion Gap 10 (6-14) Blood Urea Nitrogen 37 mg/dL (8-26) Creatinine 1.6 mg/dL (0.7-1.3) Estimated GFR (Cockcroft-Gault) 43.3 Glucose Level 181 mg/dL (70-99) Calcium Level 8.8 mg/dL (8.5-10.1) Microbiology 05/24/20 Urine Culture - Final, Complete 05/24/20 Blood Culture - Preliminary, Resulted NO GROWTH AFTER 1 DAY Medications Current Medications Famotidine (Pepcid) 20 mg BID PO Last administered on 05/26/20at 09:00; Start 05/25/20 at 21:00 Furosemide (Lasix) 40 mg DAILY PO Last administered on 05/26/20at 09:05; Start 05/26/20 at 09:00 Heparin Sodium (Porcine) (Heparin Sodium) 2,800 unit PRN Q6HRS PRN IV FOR UFH LEVEL 0.2 - 0.29; Start 05/25/20 at 14:00 Heparin Sodium (Porcine) (Heparin Sodium) 5,650 unit PRN Q6HRS PRN IV FOR UFH LEVEL LESS THAN 0.2 Last administered on 05/26/20at 10:45; Start 05/25/20 at 14:00 Heparin Sodium/ Dextrose 250 ml @ 0 mls/hr CONT PRN IV PER PROTOCOL Last administered on 05/26/20at 08:29; Start 05/25/20 at 14:00 Insulin Glargine (Lantus Syringe) 10 unit QHS SQ ; Start 05/26/20 at 21:00 Warfarin Sodium (Coumadin Per Pharmacy) 1 each PRN DAILY PRN MC PER PROTOCOL Last administered on 05/26/20at 11:15; Start 05/25/20 at 14:00 Warfarin Sodium (Coumadin) 7.5 mg 1X WARF ONCE PO ; Start 05/26/20 at 16:00; Stop 05/26/20 at 16:01 Vitals/I & O Vital Sign - Last 24 Hours 05/25/20 05/25/20 05/25/20 05/25/20 15:00 16:48 17:18 19:00 Temp 97.7 97.2 97.7 97.2 Pulse 71 73 Resp 20 B/P (MAP) 111/67 (82) 123/73 (90) Pulse Ox 98 98 98 98 O2 Delivery Room Air Room Air Room Air Venturi Mask O2 Flow Rate 15.0 15.0 15.0 15.0 05/25/20 05/25/20 05/25/20 05/25/20 20:00 20:05 21:05 23:00 Temp 97.2 97.2 Pulse 65 Resp 20 20 20 B/P (MAP) 127/70 (89) Pulse Ox 98 98 98 O2 Delivery Venturi Mask Venturi Mask Venturi Mask Venturi Mask O2 Flow Rate 15.0 15.0 15.0 15.0 05/26/20 05/26/20 05/26/20 05/26/20 02:06 03:06 03:13 07:00 Temp 98.2 96.5 98.2 96.5 Pulse 68 70 Resp 19 B/P (MAP) 143/65 (91) 136/60 (85) Pulse Ox 98 98 98 96 O2 Delivery Venturi Mask Venturi Mask High Flow Nasal Cannula Venturi Mask O2 Flow Rate 15.0 15.0 15.0 15.0 05/26/20 05/26/20 05/26/20 05/26/20 07:03 07:33 08:00 09:00 Pulse 70 Resp 19 B/P (MAP) 136/60 Pulse Ox 97 97 O2 Delivery Venturi Mask Venturi Mask Venturi Mask O2 Flow Rate 15.0 15.0 15.0 05/26/20 05/26/20 05/26/20 05/26/20 09:04 10:04 10:04 10:46 Pulse 70 Resp 20 19 B/P (MAP) 136/60 Pulse Ox 97 97 97 O2 Delivery Venturi Mask Venturi Mask Venturi Mask O2 Flow Rate 15.0 15.0 15.0 05/26/20 11:00 Pulse 70 Resp 20 B/P (MAP) Pulse Ox 97 O2 Delivery Venturi Mask O2 Flow Rate 15.0 Intake and Output 05/25/20 05/25/20 05/26/20 15:00 23:00 07:00 Intake Total 480 ml 440 ml Output Total 1900 ml 300 ml 600 ml Balance -1900 ml 180 ml -160 ml STERLING CLARK MD May 26, 2020 11:23
--- NOTE | 2020-05-26 15:59 | RAD ---
EXAM: Bilateral lower extremity venous Doppler. HISTORY: Bilateral lower extremity pain/swelling. Pulmonary embolism. COMPARISON: None. FINDINGS: Grayscale and Doppler analysis of the both lower extremity deep venous systems was performed with graded compression and augmentation. The common femoral, greater saphenous, superficial femoral, popliteal and calf veins were assessed. There is nonocclusive deep venous thrombosis throughout the superficial femoral and popliteal veins bilaterally. The posterior tibial veins could only be visualized by color flow and the peroneal veins could not be visualized given habitus. IMPRESSION: 1. Nonocclusive deep venous thrombosis throughout the superficial femoral and popliteal veins bilaterally. These findings were called to [facility] by Bossman Louise on 05/26/2020 at 3:52 PM. FOR INTERNAL CODING PURPOSES RESULT CODE: (C) Electronically signed by: River Louise MD (05/26/2020 3:56 PM) [facility]
[2020-05-26] MEDS ORDERED: WARFARIN 7.5 MG TABLET. PO ONE (16:00)
[2020-05-26 18:45] LABS: BASE EXCESS ABG -2 mmol/L (-3-3); HCO3 ABG 23 mmol/L (21-28); PCO2 ABG 37 mmHg (35-46); PO2 ABG 57 mmHg (65-108); SAT O2 ABG 87 % (92-99)
--- NOTE | 2020-05-26 18:56 | NUR ---
dr rivera notified of patients chest pain and difficulty with spo2 reading above 80. ABG orders received. orders to switch from [facility] bipap to hospital bipap. will continue to monitor patient.
[2020-05-26 19:17] LABS: FIO2 ABG 100 NRB
[2020-05-26] MEDS: ATORVASTATIN CALCIUM 20 MG TABLET PO SCH (21:08)
[2020-05-26] MEDS: TAMSULOSIN 0.4 MG CAP.ER.24H. PO SCH (21:08)
[2020-05-26] MEDS: INSULIN GLARGINE SYRINGE. SQ SCH (21:12)
[2020-05-27] VITALS (24 sets, daily range): BP systolic 92–140; BP diastolic 47–84
--- NOTE | 2020-05-27 00:28 | NUR ---
Pt refusing turns this shift. This RN educated patient on pressure prevention and the causes of pressure ulcers. Pt stated "I'm comfortable for sleeping and I want to stay this way. I am not turning." Pt currently on home BiPap. Pt wore the hospital BiPap for approx a few hours at the beginning of this shift, and then stated he "couldn't take it anymore." When this nurse asked pt how many liters of oxygen he wears with his home BiPap, he stated 15-18 liters. Pts oxygen saturation 93-100% on these BiPap settings. Pt now maintaining SPO2 between 91-93% on 10L with home BiPap. Pt now states that he "does not wear any oxygen at home with his BiPap, and that his settings are actually 15/18". Pt refuses to wear hospital BiPap. Pt educated on hypoxia earlier this shift and continues to refuse. RT aware of pt refusal. Will pass on and continue to monitor. Pt currently resting with eyes closed and call light within reach.
[2020-05-27] MEDS: HYDROcodone/APAP 5/325MG 1 TAB TABLET PO PRN ×2 (01:15→19:12)
[2020-05-27] MEDS: ONDANSETRON PF 4 MG/2 ML VIAL. IV PRN ×2 (02:07→21:04)
[2020-05-27] MEDS: MORPHINE SULFATE 4 MG/ML VIAL. IV PRN ×3 (04:30→20:49)
[2020-05-27 06:01] LABS: BASE EXCESS ABG -1 mmol/L (-3-3); HCO3 ABG 23 mmol/L (21-28); PCO2 ABG 37 mmHg (35-46); PO2 ABG 85 mmHg (65-108); SAT O2 ABG 95 % (92-99)
[2020-05-27 06:07] LABS: FIO2 ABG 45
--- NOTE | 2020-05-27 06:25 | NUR ---
During 0 rounds, this RN noticed pt to have AMS. Pt no longer a&ox4, pt now only oriented to self. Pt also now calling out, when earlier he was using his call light. No other abnormalities noted. Pts pharmacy technician assistant equal and strong. VSS, pt afebrile. PERRLA. Pt able to speak clearly and age appropriately. [facility] was WNL when last assessed. Call placed to on-call MD, Dr. Alejo. Received order to have ABG drawn for AMS. ABG results came back WNL. Pt has been switching between personal BiPap and hospital BiPap throughout the night. When on personal BiPap, pt had refused to wear the hospital machine any longer. Pt is currently back on the hospital BiPap with SPO2 96%. Pt within sight of care team. Will pass on and continue to monitor.
--- NOTE | 2020-05-27 06:44 | NUR ---
Pt is again a&ox4. Will pass on and continue to monitor.
[2020-05-27 07:14] LABS: RED BLOOD COUNT 4.11 x10^6/uL (4.30-5.70); RED CELL DISTRIBUTION WIDTH 15.3 % (11.5-14.5); WHITE BLOOD COUNT 9.9 x10^3/uL (4.0-11.0)
[2020-05-27 07:28] LABS: CALCIUM 8.7 mg/dL (8.5-10.1); CREATININE 1.5 mg/dL (0.7-1.3); GFR 46.7; POTASSIUM 3.8 mmol/L (3.5-5.1)
[2020-05-27] MEDS: INSULIN LISPRO 300 UNITS/3 ML VIAL. SQ SCH ×4 (07:30→20:59)
[2020-05-27] MEDS: HEPARIN 25,000UTS/250ML PREMIX 250 ML IV PRN ×2 (07:32→19:58)
--- NOTE | 2020-05-27 07:45 | PDOC ---
PROGRESS NOTES Chief Complaint Chief Complaint impression Chest pain - likely multifactorial, almost certainly with a PE, troponins trended down, he has significant CAD. likely PE. Cardiology consult. Cont heparin GTT Acute hypoxic respiratory failure - likely 2/2 acute CHF, however, with his healthcare exposure COVID testing is indicated Shortness of breath - likely from above. Pulmonary embolism highly likely Bilateral DVT - non-occlusive, up beyond politeal fossa CAD - s/p previous PCI/stents to the LCx and 1st diagonal. s/p PCI/JOELLE to the RCA Hematuria - will continue bladder irrigation. If ramirez occludes we do not have Urology coverage and he would require transfer to another facility, he prefers Dr. Lamas, who is his primary Urologist. Acute on chronic diastolic CHF - c/o dyspnea and CXR with vascular congestion. change to PO lasix, strict i/o, ramirez placed Hypertension - controlled Hyperlipiemia - statin SONIYA on CKD - Cr 1.9. This was certainly vasomotor nephropathy SUSANA with CPAP BPH - cont meds HTN - controlled Morbid obesity with SUSANA - CPAP at home DM2 - sliding scale FEN - Cardiac PPX - heparin FULL CODE Dispo - inpatient icu bed History of Present Illness History of Present Illness Mr Drake is a 69 yo M w/ PMHx CAD s/p stents, DM2, GERD, HLD, HTN, chronic back pain, constipation, and recent diagnosis of BPH who was recently seen at this facility for RCA stenting returns from SNF today c/o worsening shortness of breath and heavy chest pressure. No leg swelling or leg pain. He was recently admitted 05/09-05/16 for UTI/prostatitis as well as sciatica, then readmitted with NSTEMI and RCA stenting on 05/17, discharged 05/22 to SNF. Report from SNF states the patient was on 3 to 4 L oxygen since his recent cardiac cath but today noted with oxygen 80% on 6 L nasal cannula. Patient state s he felt a little dizzy after standing up earlier, however states this is improved. Recently had negative COVID test. CXR with bilateral interstitial infiltrate pattern. Pulmonary perfusion imaging was performed without ventilatory scan and was interpreted by radiology as high probability for PE given the bilateral perfusion defects, on chest x-ray it appears that the same pattern as the interstitial infiltrate however. Labs significant for WBC 14.8, Hb 13.7 platelets 142, NA 138, K4.1, BUN 49, CR 1.9, g lucose 204, lactic acid 3.3, INR 1.2, AST 45, BNP 4329, troponin 0 0.042. EKG with QRS consistent with prior inferolateral infarct. ED had given lovenox for concern for PE. Ramirez placed and lasix given. Admitted for further care under investigation for COVID 19. 05/25: Some rincon tinged urine for Ramirez. No clots noted. His breathing is improved. Changed to heparin and warfarin as he was given Lovenox in the ED and weightbase protocol will not work for this. His chest pressure is improved. Still on 12 L facemask O2. COVID 19 negative Afebrile overnight. 2.8 L urine output, still rincon red. Still requiring 15 L facemask O2. Irrigating bladder this morning, he is having some pain and passing some clots. Addendum: Transferred to ICU per pulmonology. I have reassessed patient bedside in ICU, found to have non-occlusive DVTs bilaterally in lower legs above popliteal fossa. CC time 34 minutes Vitals Vitals Vital Signs Date Time Temp Pulse Resp B/P (MAP) Pulse Ox O2 Delivery O2 Flow Rate FiO2 05/27/20 07:00 74 12 136/73 (94) 95 BiPAP/CPAP 05/27/20 06:00 97.2 97.2 05/27/20 04:00 10.0 Physical Exam General: Alert, Oriented X3 Heart: Regular rate (SR) Lungs: Clear Abdomen: Other (obese) Extremities: No cyanosis Skin: No breakdown Labs LABS SPEC #: [id number] FRIDA: 05/24/20 STATUS: RES REQ #: [id number] RECD: 05/24/[address]: KARINA CUELLAR APRN SOURCE: BLOOD ENTR: 05/24/[address] [facility] [address]: Jessica WHITT MD [facility]: ORDERED: BCULT Procedure Result BLOOD CULTURE Preliminary NO GROWTH AFTER 2 DAYS PDESC: MARIBETH CADET MD ORDERED: URINE CULTURE Procedure Result URINE CULTURE Final Final No Growth on 05/25/20 at 1030 Testing Performed by: [facility] [address] [facility] [place] [address] For Inquires, the Physician may contact the Microbiology department at [phone] Unless otherwise specified, Testing Performed by: [address] [address] For Inquires, the Physician may contact the Microbiology department at [phone] ----- ------- PROCEDURE: PULMONARY PERFUSION IMG PARTIC NUCLEAR MEDICINE PERFUSION ONLY SCAN History: Shortness of air, hypoxia. Comparison: AP chest, same day. Technique: Perfusion portion performed after intravenous administration of 5.5 mCi Technetium 99m MAA. Multiple projection planar images of the lungs were obtained. Findings: Ventilation imaging is not performed due to aerosolized droplet precautions. Perfusion images demonstrate multiple moderate and large segmental defects bilaterally. For example there is a defect of most of the right lower lobe. IMPRESSION: Intermediate to high probability for pulmonary embolus. Findings discussed with KARINA CUELLAR in the ED at 05/24/2020 2:09 PM. FOR INTERNAL CODING PURPOSES Critical result: RESULT CODE: (C) Electronically signed by: Grzegorz Lundberg MD (05/24/2020 2:11 PM) [id number] DICTATED and SIGNED BY: GRZEGORZ LUNDBERG MD DATE: 05/24/20 1411 Laboratory Tests Test 05/26/20 08:50 05/26/20 12:24 05/26/20 17:08 05/26/20 18:19 White Blood Count 9.8 x10^3/uL (4.0-11.0) Red Blood Count 4.13 x10^6/uL (4.30-5.70) Hemoglobin 13.2 g/dL (13.0-17.5) Hematocrit 39.3 % (39.0-53.0) Mean Corpuscular Volume 95 fL (79-100) Mean Corpuscular Hemoglobin 32 pg (25-35) Mean Corpuscular Hemoglobin Concent 34 g/dL (31-37) Red Cell Distribution Width 15.4 % (11.5-14.5) Platelet Count 106 x10^3/uL (140-400) Neutrophils (%) (Auto) 77 % (31-73) Lymphocytes (%) (Auto) 13 % (24-48) Monocytes (%) (Auto) 7 % (0-9) Eosinophils (%) (Auto) 2 % (0-3) Basophils (%) (Auto) 1 % (0-3) Neutrophils # (Auto) 7.5 x10^3/uL (1.8-7.7) Lymphocytes # (Auto) 1.3 x10^3/uL (1.0-4.8) Monocytes # (Auto) 0.7 x10^3/uL (0.0-1.1) Eosinophils # (Auto) 0.2 x10^3/uL (0.0-0.7) Basophils # (Auto) 0.1 x10^3/uL (0.0-0.2) Heparin Anti-Xa Act, Unfractionated 0.14 IU/mL (0.30-0.70) Sodium Level 139 mmol/L (136-145) Potassium Level 4.1 mmol/L (3.5-5.1) Chloride Level 100 mmol/L (98-107) Carbon Dioxide Level 29 mmol/L (21-32) Anion Gap 10 (6-14) Blood Urea Nitrogen 37 mg/dL (8-26) Creatinine 1.6 mg/dL (0.7-1.3) Estimated GFR (Cockcroft-Gault) 43.3 Glucose Level 181 mg/dL (70-99) Calcium Level 8.8 mg/dL (8.5-10.1) Glucose (Fingerstick) 207 mg/dL (70-99) 164 mg/dL (70-99) O2 Saturation 87 % (92-99) Arterial Blood pH 7.41 (7.35-7.45) Arterial Blood pCO2 at Patient Temp 37 mmHg (35-46) Arterial Blood pO2 at Patient Temp 57 mmHg (65-108) Arterial Blood HCO3 23 mmol/L (21-28) Arterial Blood Base Excess -2 mmol/L (-3-3) FiO2 100 nrb Test 05/26/20 19:10 05/27/20 01:10 05/27/20 05:37 05/27/20 07:10 Hemoglobin 13.2 g/dL (13.0-17.5) 13.0 g/dL (13.0-17.5) Heparin Anti-Xa Act, Unfractionated 0.80 IU/mL (0.30-0.70) 0.60 IU/mL (0.30-0.70) 0.54 IU/mL (0.30-0.70) O2 Saturation 95 % (92-99) Arterial Blood pH 7.41 (7.35-7.45) Arterial Blood pCO2 at Patient Temp 37 mmHg (35-46) Arterial Blood pO2 at Patient Temp 85 mmHg (65-108) Arterial Blood HCO3 23 mmol/L (21-28) Arterial Blood Base Excess -1 mmol/L (-3-3) FiO2 45 White Blood Count 9.9 x10^3/uL (4.0-11.0) Red Blood Count 4.11 x10^6/uL (4.30-5.70) Hematocrit 39.0 % (39.0-53.0) Mean Corpuscular Volume 95 fL (79-100) Mean Corpuscular Hemoglobin 32 pg (25-35) Mean Corpuscular Hemoglobin Concent 34 g/dL (31-37) Red Cell Distribution Width 15.3 % (11.5-14.5) Platelet Count 99 x10^3/uL (140-400) Prothrombin Time 14.0 SEC (11.7-14.0) Prothromb Time International Ratio 1.1 (0.8-1.1) Sodium Level 133 mmol/L (136-145) Potassium Level 3.8 mmol/L (3.5-5.1) Chloride Level 98 mmol/L (98-107) Carbon Dioxide Level 24 mmol/L (21-32) Anion Gap 11 (6-14) Blood Urea Nitrogen 39 mg/dL (8-26) Creatinine 1.5 mg/dL (0.7-1.3) Estimated GFR (Cockcroft-Gault) 46.7 Glucose Level 204 mg/dL (70-99) Calcium Level 8.7 mg/dL (8.5-10.1) Test 05/27/20 07:33 Glucose (Fingerstick) 185 mg/dL (70-99) Assessment and Plan Assessmemt and Plan Problems Medical Problems: (1) Chest pressure Status: Acute (2) Congestive heart failure (CHF) Status: Acute Comment Review of Relevant I have reviewed the following items jm (where applicable) has been applied. Labs Laboratory Tests Test 05/25/20 07:48 05/25/20 09:05 05/25/20 12:35 05/25/20 13:00 Glucose (Fingerstick) 164 mg/dL (70-99) 183 mg/dL (70-99) D-Dimer (Tania) 18.63 ug/mlFEU (0.00-0.50) Lactic Acid Level 2.6 mmol/L (0.4-2.0) 2.6 mmol/L (0.4-2.0) Troponin I Quantitative 0.020 ng/mL (0.000-0.055) Procalcitonin < 0.10 ng/mL (0.00-0.10) Test 05/25/20 16:21 05/26/20 02:30 05/26/20 06:17 05/26/20 07:07 Glucose (Fingerstick) 161 mg/dL (70-99) 190 mg/dL (70-99) Hemoglobin 13.5 g/dL (13.0-17.5) 12.9 g/dL (13.0-17.5) Prothrombin Time 14.3 SEC (11.7-14.0) Prothromb Time International Ratio 1.2 (0.8-1.1) Heparin Anti-Xa Act, Unfractionated 0.36 IU/mL (0.30-0.70) Lactic Acid Level 1.7 mmol/L (0.4-2.0) Test 05/26/20 08:50 05/26/20 12:24 05/26/20 17:08 05/26/20 18:19 White Blood Count 9.8 x10^3/uL (4.0-11.0) Red Blood Count 4.13 x10^6/uL (4.30-5.70) Hemoglobin 13.2 g/dL (13.0-17.5) Hematocrit 39.3 % (39.0-53.0) Mean Corpuscular Volume 95 fL (79-100) Mean Corpuscular Hemoglobin 32 pg (25-35) Mean Corpuscular Hemoglobin Concent 34 g/dL (31-37) Red Cell Distribution Width 15.4 % (11.5-14.5) Platelet Count 106 x10^3/uL (140-400) Neutrophils (%) (Auto) 77 % (31-73) Lymphocytes (%) (Auto) 13 % (24-48) Monocytes (%) (Auto) 7 % (0-9) Eosinophils (%) (Auto) 2 % (0-3) Basophils (%) (Auto) 1 % (0-3) Neutrophils # (Auto) 7.5 x10^3/uL (1.8-7.7) Lymphocytes # (Auto) 1.3 x10^3/uL (1.0-4.8) Monocytes # (Auto) 0.7 x10^3/uL (0.0-1.1) Eosinophils # (Auto) 0.2 x10^3/uL (0.0-0.7) Basophils # (Auto) 0.1 x10^3/uL (0.0-0.2) Heparin Anti-Xa Act, Unfractionated 0.14 IU/mL (0.30-0.70) Sodium Level 139 mmol/L (136-145) Potassium Level 4.1 mmol/L (3.5-5.1) Chloride Level 100 mmol/L (98-107) Carbon Dioxide Level 29 mmol/L (21-32) Anion Gap 10 (6-14) Blood Urea Nitrogen 37 mg/dL (8-26) Creatinine 1.6 mg/dL (0.7-1.3) Estimated GFR (Cockcroft-Gault) 43.3 Glucose Level 181 mg/dL (70-99) Calcium Level 8.8 mg/dL (8.5-10.1) Glucose (Fingerstick) 207 mg/dL (70-99) 164 mg/dL (70-99) O2 Saturation 87 % (92-99) Arterial Blood pH 7.41 (7.35-7.45) Arterial Blood pCO2 at Patient Temp 37 mmHg (35-46) Arterial Blood pO2 at Patient Temp 57 mmHg (65-108) Arterial Blood HCO3 23 mmol/L (21-28) Arterial Blood Base Excess -2 mmol/L (-3-3) FiO2 100 nrb Test 05/26/20 19:10 05/27/20 01:10 05/27/20 05:37 05/27/20 07:10 Hemoglobin 13.2 g/dL (13.0-17.5) 13.0 g/dL (13.0-17.5) Heparin Anti-Xa Act, Unfractionated 0.80 IU/mL (0.30-0.70) 0.60 IU/mL (0.30-0.70) 0.54 IU/mL (0.30-0.70) O2 Saturation 95 % (92-99) Arterial Blood pH 7.41 (7.35-7.45) Arterial Blood pCO2 at Patient Temp 37 mmHg (35-46) Arterial Blood pO2 at Patient Temp 85 mmHg (65-108) Arterial Blood HCO3 23 mmol/L (21-28) Arterial Blood Base Excess -1 mmol/L (-3-3) FiO2 45 White Blood Count 9.9 x10^3/uL (4.0-11.0) Red Blood Count 4.11 x10^6/uL (4.30-5.70) Hematocrit 39.0 % (39.0-53.0) Mean Corpuscular Volume 95 fL (79-100) Mean Corpuscular Hemoglobin 32 pg (25-35) Mean Corpuscular Hemoglobin Concent 34 g/dL (31-37) Red Cell Distribution Width 15.3 % (11.5-14.5) Platelet Count 99 x10^3/uL (140-400) Prothrombin Time 14.0 SEC (11.7-14.0) Prothromb Time International Ratio 1.1 (0.8-1.1) Sodium Level 133 mmol/L (136-145) Potassium Level 3.8 mmol/L (3.5-5.1) Chloride Level 98 mmol/L (98-107) Carbon Dioxide Level 24 mmol/L (21-32) Anion Gap 11 (6-14) Blood Urea Nitrogen 39 mg/dL (8-26) Creatinine 1.5 mg/dL (0.7-1.3) Estimated GFR (Cockcroft-Gault) 46.7 Glucose Level 204 mg/dL (70-99) Calcium Level 8.7 mg/dL (8.5-10.1) Test 05/27/20 07:33 Glucose (Fingerstick) 185 mg/dL (70-99) Laboratory Tests Test 05/26/20 08:50 05/26/20 12:24 7/25/20 17:08 05/26/20 18:19 White Blood Count 9.8 x10^3/uL (4.0-11.0) Red Blood Count 4.13 x10^6/uL (4.30-5.70) Hemoglobin 13.2 g/dL (13.0-17.5) Hematocrit 39.3 % (39.0-53.0) Mean Corpuscular Volume 95 fL (79-100) Mean Corpuscular Hemoglobin 32 pg (25-35) Mean Corpuscular Hemoglobin Concent 34 g/dL (31-37) Red Cell Distribution Width 15.4 % (11.5-14.5) Platelet Count 106 x10^3/uL (140-400) Neutrophils (%) (Auto) 77 % (31-73) Lymphocytes (%) (Auto) 13 % (24-48) Monocytes (%) (Auto) 7 % (0-9) Eosinophils (%) (Auto) 2 % (0-3) Basophils (%) (Auto) 1 % (0-3) Neutrophils # (Auto) 7.5 x10^3/uL (1.8-7.7) Lymphocytes # (Auto) 1.3 x10^3/uL (1.0-4.8) Monocytes # (Auto) 0.7 x10^3/uL (0.0-1.1) Eosinophils # (Auto) 0.2 x10^3/uL (0.0-0.7) Basophils # (Auto) 0.1 x10^3/uL (0.0-0.2) Heparin Anti-Xa Act, Unfractionated 0.14 IU/mL (0.30-0.70) Sodium Level 139 mmol/L (136-145) Potassium Level 4.1 mmol/L (3.5-5.1) Chloride Level 100 mmol/L (98-107) Carbon Dioxide Level 29 mmol/L (21-32) Anion Gap 10 (6-14) Blood Urea Nitrogen 37 mg/dL (8-26) Creatinine 1.6 mg/dL (0.7-1.3) Estimated GFR (Cockcroft-Gault) 43.3 Glucose Level 181 mg/dL (70-99) Calcium Level 8.8 mg/dL (8.5-10.1) Glucose (Fingerstick) 207 mg/dL (70-99) 164 mg/dL (70-99) O2 Saturation 87 % (92-99) Arterial Blood pH 7.41 (7.35-7.45) Arterial Blood pCO2 at Patient Temp 37 mmHg (35-46) Arterial Blood pO2 at Patient Temp 57 mmHg (65-108) Arterial Blood HCO3 23 mmol/L (21-28) Arterial Blood Base Excess -2 mmol/L (-3-3) FiO2 100 nrb Test 05/26/20 19:10 05/27/20 01:10 05/27/20 05:37 05/27/20 07:10 Hemoglobin 13.2 g/dL (13.0-17.5) 13.0 g/dL (13.0-17.5) Heparin Anti-Xa Act, Unfractionated 0.80 IU/mL (0.30-0.70) 0.60 IU/mL (0.30-0.70) 0.54 IU/mL (0.30-0.70) O2 Saturation 95 % (92-99) Arterial Blood pH 7.41 (7.35-7.45) Arterial Blood pCO2 at Patient Temp 37 mmHg (35-46) Arterial Blood pO2 at Patient Temp 85 mmHg (65-108) Arterial Blood HCO3 23 mmol/L (21-28) Arterial Blood Base Excess -1 mmol/L (-3-3) FiO2 45 White Blood Count 9.9 x10^3/uL (4.0-11.0) Red Blood Count 4.11 x10^6/uL (4.30-5.70) Hematocrit 39.0 % (39.0-53.0) Mean Corpuscular Volume 95 fL (79-100) Mean Corpuscular Hemoglobin 32 pg (25-35) Mean Corpuscular Hemoglobin Concent 34 g/dL (31-37) Red Cell Distribution Width 15.3 % (11.5-14.5) Platelet Count 99 x10^3/uL (140-400) Prothrombin Time 14.0 SEC (11.7-14.0) Prothromb Time International Ratio 1.1 (0.8-1.1) Sodium Level 133 mmol/L (136-145) Potassium Level 3.8 mmol/L (3.5-5.1) Chloride Level 98 mmol/L (98-107) Carbon Dioxide Level 24 mmol/L (21-32) Anion Gap 11 (6-14) Blood Urea Nitrogen 39 mg/dL (8-26) Creatinine 1.5 mg/dL (0.7-1.3) Estimated GFR (Cockcroft-Gault) 46.7 Glucose Level 204 mg/dL (70-99) Calcium Level 8.7 mg/dL (8.5-10.1) Test 05/27/20 07:33 Glucose (Fingerstick) 185 mg/dL (70-99) Microbiology 05/24/20 Urine Culture - Final, Complete 05/24/20 Blood Culture - Preliminary, Resulted NO GROWTH AFTER 2 DAYS Medications Current Medications Nitroglycerin (Nitrostat) 0.4 mg PRN Q5MIN PRN SL CHEST PAIN Last administered on 05/24/20at 12:22; Start 05/24/20 at 12:00 Acetaminophen/ Hydrocodone Bitart (Lortab 5/325) 1 tab 1X ONCE PO Last administered on 05/24/20at 12:56; Start 05/24/20 at 12:45; Stop 05/24/20 at 12:46; Status DC Furosemide (Lasix) 40 mg 1X ONCE IVP Last administered on 05/24/20at 15:43; Start 05/24/20 at 13:00; Stop 05/24/20 at 13:01; Status DC Enoxaparin Sodium (Lovenox 100mg Syringe) 100 mg 1X ONCE SQ Last administered on 05/24/20at 15:20; Start 05/24/20 at 14:15; Stop 05/24/20 at 14:29; Status DC Morphine Sulfate (Morphine Sulfate) 2 mg 1X ONCE IV Last administered on 05/24/20at 15:17; Start 05/24/20 at 14:30; Stop 05/24/20 at 14:37; Status DC Ondansetron HCl (Zofran) 4 mg PRN Q4HRS PRN IV NAUSEA/VOMITING Last administered on 05/27/20at 02:07; Start 05/24/20 at 14:45 Acetaminophen (Tylenol) 650 mg PRN Q4HRS PRN PO TEMP OVER 100.4F OR MILD PAIN Last administered on 05/26/20at 09:04; Start 05/24/20 at 14:45 Aspirin (Ecotrin) 81 mg DAILY PO Last administered on 05/26/20 09:05; Start 05/25/20 at 09:00 Atorvastatin Calcium (Lipitor) 20 mg HS PO Last administered on 05/26/20at 21:08; Start 05/24/20 at 21:00 Clopidogrel Bisulfate (Plavix) 75 mg DAILY PO Last administered on 05/26/20 09:05; Start 05/25/20 at 09:00 Ferrous Sulfate (Feosol) 325 mg DAILY PO Last administered on 05/26/20 09:04; Start 05/25/20 at 09:00 Fluticasone Propionate (Flonase) 2 spray DAILY NS Last administered on 05/26/20 09:03; Start 05/25/20 at 09:00 Acetaminophen/ Hydrocodone Bitart (Lortab 5/325) 1 tab PRN Q6HRS PRN PO MODERATE PAIN Last administered on 05/26/20 09:04; Start 05/24/20 at 18:15; Stop 05/26/20 at 14:35; Status DC Isosorbide Mononitrate (Imdur) 60 mg DAILY PO Last administered on 05/26/20 10:04; Start 05/25/20 at 09:00 Pantoprazole Sodium (Protonix) 40 mg DAILYAC PO ; Start 05/25/20 at 07:30; Stop 05/25/20 at 09:30; Status DC Tamsulosin HCl (Flomax) 0.4 mg HS PO Last administered on 05/26/20 21:08; Start 05/24/20 at 21:00 Metoprolol Succinate (Toprol Xl) 50 mg DAILY PO Last administered on 05/26/20at 09:00; Start 05/25/20 at 09:00 Insulin Human Lispro (HumaLOG) 0-9 UNITS TIDACHC SQ Last administered on at 21:13; Start 05/24/20 at 21:00 Dextrose (Dextrose 50%-Water Syringe) 12.5 gm PRN Q15MIN PRN IV SEE COMMENTS; Start 05/24/20 at 18:15 Furosemide (Lasix) 40 mg BID92 IVP Last administered on 05/25/20at 12:52; Start 05/25/20 at 09:00; Stop 05/25/20 at 14:01; Status DC Morphine Sulfate (Morphine Sulfate) 4 mg PRN Q4HRS PRN IV PAIN Last administered on 05/27/20 04:30; Start 05/24/20 at 20:45 Pharmacy Consult (Jarod Med Screen By Rx) 1 each 1X ONCE MC ; Start 05/25/20 at 09:00; Stop 05/25/20 at 09:01; Status DC Famotidine (Pepcid) 20 mg BID PO Last administered on 05/26/20 21:08; Start 05/25/20 at 21:00 Lactobacillus Rhamnosus (Culturelle) 1 cap BID PO Last administered on 05/26/20 21:08; Start 05/25/20 at 10:00 Heparin Sodium/ Dextrose 250 ml @ 0 mls/hr CONT PRN IV PER PROTOCOL Last administered on 05/27/20 07:32; Start 05/25/20 at 14:00 Heparin Sodium (Porcine) (Heparin Sodium) 5,650 unit PRN Q6HRS PRN IV FOR UFH LEVEL LESS THAN 0.2 Last administered on 05/26/20at 10:45; Start 05/25/20 at 14:00 Heparin Sodium (Porcine) (Heparin Sodium) 2,800 unit PRN Q6HRS PRN IV FOR UFH LEVEL 0.2 - 0.29; Start 05/25/20 at 14:00 Warfarin Sodium (Coumadin Per Pharmacy) 1 each PRN DAILY PRN MC PER PROTOCOL Last administered on 05/26/20at 11:15; Start 05/25/20 at 14:00 Furosemide (Lasix) 40 mg DAILY PO Last administered on 05/26/20 09:05; Start 05/26/20 at 09:00 Insulin Glargine (Lantus Syringe) 10 unit QHS SQ Last administered on 05/26/20 21:12; Start 05/26/20 at 21:00 Warfarin Sodium (Coumadin) 7.5 mg 1X WARF ONCE PO Last administered on 05/26/20 16:02; Start 05/26/20 at 16:00; Stop 05/26/20 at 16:01; Status DC Acetaminophen/ Hydrocodone Bitart (Lortab 5/325) 1 tab PRN Q4HRS PRN PO MODERATE PAIN Last administered on 05/27/20at 01:15; Start 05/26/20 at 14:45 Active Scripts Active Hydrocodone-Apap 5-325 (Hydrocodone Bit/Acetaminophen) 1 Tab Tablet 1 Tab PO PRN Q6HRS PRN 5 Days Amox Tr-K Clv 500-125 Mg Tab (Amoxicillin/Potassium Clav) 1 Each Tablet 1 Tab PO BID 10 Days Aspirin Ec (Aspirin) 81 Mg Tablet.dr 1 Tab PO DAILY Reported Flomax (Tamsulosin Hcl) 0.4 Mg Cap.er.24h 1 Cap PO HS Fluticasone Propionate Nasal [place] (Fluticasone Propionate) 16 Gm [place].susp 2 [place] NS DAILY Linzess (Linaclotide) 145 Mcg Capsule 145 Mcg PO 3X/WEEK Fexofenadine Hcl 180 Mg Tablet 1 Tab PO DAILY Vitamin C (Ascorbic Acid) 500 Mg Capsule.er 1,000 Mg PO DAILY One Daily For Men Tablet (Multivits-Minerals/Fa/Lycopene) 1 Each Tablet 1 Tab PO DAILY 30 Days Iron (Ferrous Sulfate) 325 Mg Tablet 65 Mg PO DAILY Allopurinol 300 Mg Tablet 1 Tab PO DAILY Vitamin D2 (Ergocalciferol (Vitamin D2)) 50,000 Unit Capsule 50,000 Unit PO WEEKLY Dose given on the Take on Pantoprazole Sodium (Pantoprazole Sodium) 40 Mg Tablet.dr 1 Tab PO DAILY Gave this morning take tomorrow morning Tizanidine Hcl 4 Mg Tablet 1 Tab PO QHS Gave dose last night Take tonight before bedtime Vascepa (Icosapent Ethyl) 1 Gm Capsule 1 Gm PO Not given on this admission Take as previoulsy instructed Atorvastatin Calcium 20 Mg Tablet 1 Tab PO HS Gave last night Take tonight Clopidogrel (Clopidogrel Bisulfate) 75 Mg Tablet 1 Tab PO DAILY Gave this morning take tomorrow morning Isosorbide Mononitrate Er (Isosorbide Mononitrate) 30 Mg Tab.er.24h 60 Mg PO DAILY Gave this morning take tomorrow morning Repaglinide 1 Mg Tablet 1 Mg PO Not given on this admission Continue as previously instructed Toprol Xl (Metoprolol Succinate) 50 Mg Tab.er.24h 1 Tab PO DAILY Gave this morning take tomorrow morning Vitals/I & O Vital Sign - Last 24 Hours 05/26/20 05/26/20 05/26/20 05/26/20 08:00 09:00 09:04 10:04 Pulse 70 Resp 20 B/P (MAP) 136/60 Pulse Ox 97 97 O2 Delivery Venturi Mask Venturi Mask Venturi Mask O2 Flow Rate 15.0 15.0 15.0 05/26/20 05/26/20 05/26/20 05/26/20 10:04 10:46 11:00 11:16 Pulse 70 70 Resp 19 20 B/P (MAP) 136/60 Pulse Ox 97 97 97 O2 Delivery Venturi Mask Venturi Mask Venturi Mask O2 Flow Rate 15.0 15.0 15.0 05/26/20 05/26/20 05/26/20 05/26/20 14:48 15:15 15:19 16:23 Temp 96.9 96.9 Pulse 70 68 Resp 16 14 B/P (MAP) 132/70 (90) 142/73 (96) Pulse Ox 97 94 94 93 O2 Delivery Venturi Mask Venturi Mask Venturi Mask Venturi Mask O2 Flow Rate 15.0 15.0 15.0 15.0 05/26/20 05/26/20 05/26/20 05/26/20 17:06 17:15 18:05 18:30 Pulse 85 Resp 12 B/P (MAP) 115/73 (87) Pulse Ox 85 83 83 96 O2 Delivery Venturi Mask Venturi Mask NonRebreather Mask BiPAP/CPAP O2 Flow Rate 15.0 15.0 15.0 05/26/20 05/26/20 05/26/20 05/26/20 18:35 19:00 19:07 19:30 Pulse 86 84 Resp 16 B/P (MAP) 123/73 (90) 124/74 (91) Pulse Ox 87 93 95 94 O2 Delivery NonRebreather Mask BiPAP/CPAP BiPAP/CPAP BiPAP/CPAP O2 Flow Rate 15.0 05/26/20 05/26/20 05/26/20 05/26/20 19:37 20:00 20:00 21:00 Temp 96.8 96.8 Pulse 78 82 Resp 16 16 16 B/P (MAP) 104/85 (91) 108/72 (84) Pulse Ox 95 94 94 O2 Delivery BiPAP/CPAP BiPAP/CPAP Bi-pap BiPAP/CPAP O2 Flow Rate 15.0 15.0 15.0 05/26/20 05/26/20 05/26/20 05/26/20 21:08 22:00 22:08 23:00 Pulse 74 77 Resp 16 16 16 16 B/P (MAP) 126/78 (94) 115/70 (85) Pulse Ox 95 98 98 99 O2 Delivery BiPAP/CPAP BiPAP/CPAP BiPAP/CPAP BiPAP/CPAP O2 Flow Rate 15.0 15.0 05/26/20 05/26/20 05/27/20 05/27/20 23:10 23:40 00:00 00:00 Temp 96.2 96.2 Pulse 79 Resp 16 16 16 B/P (MAP) 117/74 (88) Pulse Ox 95 100 89 O2 Delivery BiPAP/CPAP BiPAP/CPAP BiPAP/CPAP Bi-pap O2 Flow Rate 10.0 10.0 05/27/20 05/27/20 05/27/20 05/27/20 01:00 01:15 02:00 02:15 Pulse 80 77 Resp 16 18 16 18 B/P (MAP) 131/77 (95) 112/70 (84) Pulse Ox 91 91 95 95 O2 Delivery BiPAP/CPAP BiPAP/CPAP BiPAP/CPAP BiPAP/CPAP O2 Flow Rate 10.0 05/27/20 05/27/20 05/27/20 05/27/20 03:00 03:42 04:00 04:00 Temp 96.6 96.6 Pulse 72 69 Resp 16 16 B/P (MAP) 116/75 (89) 118/71 (87) Pulse Ox 96 94 97 O2 Delivery BiPAP/CPAP BiPAP/CPAP BiPAP/CPAP Bi-pap O2 Flow Rate 10.0 05/27/20 05/27/20 05/27/20 05/27/20 04:30 05:00 05:00 06:00 Temp 97.2 97.2 Pulse 77 72 Resp 16 16 16 16 B/P (MAP) 126/81 (96) 140/84 (102) Pulse Ox 97 96 95 95 O2 Delivery BiPAP/CPAP BiPAP/CPAP BiPAP/CPAP BiPAP/CPAP 05/27/20 07:00 Pulse 74 Resp 12 B/P (MAP) 136/73 (94) Pulse Ox 95 O2 Delivery BiPAP/CPAP Intake and Output 05/26/20 05/26/20 05/27/20 15:00 23:00 07:00 Intake Total 360 ml 610 ml 1018 ml Output Total 400 ml 605 ml 350 ml Balance -40 ml 5 ml 668 ml Justicifation of Admission Dx: Justifications for Admission: Justification of Admission Dx: Yes CHF: Hemodynamic Instability Angina: Symp at Rest MORE CHAPMAN MD May 27, 2020 07:45
--- NOTE | 2020-05-27 09:36 | PDOC ---
PULMONARY PROGRESS NOTES Subjective Rested on BIPAP last night hematuria DVT Vitals Vital Signs Date Time Temp Pulse Resp B/P (MAP) Pulse Ox O2 Delivery O2 Flow Rate FiO2 05/27/20 08:09 95 BiPAP/CPAP 05/27/20 07:00 74 12 136/73 (94) 05/27/20 06:00 97.2 97.2 05/27/20 04:00 10.0 ROS: No Chest Pain, No Increase Cough General: Alert, No acute distress Lungs: Clear Cardiovascular: S1 Abdomen: Soft Neuro Exam: Alert Extremities: Other (2+edema) Labs Laboratory Tests Test 05/25/20 12:35 05/25/20 13:00 05/25/20 16:21 05/26/20 02:30 Glucose (Fingerstick) 183 mg/dL (70-99) 161 mg/dL (70-99) Lactic Acid Level 2.6 mmol/L (0.4-2.0) 1.7 mmol/L (0.4-2.0) Hemoglobin 13.5 g/dL (13.0-17.5) Prothrombin Time 14.3 SEC (11.7-14.0) Prothromb Time International Ratio 1.2 (0.8-1.1) Heparin Anti-Xa Act, Unfractionated 0.36 IU/mL (0.30-0.70) Test 05/26/20 06:17 05/26/20 07:07 05/26/20 08:50 05/26/20 12:24 Hemoglobin 12.9 g/dL (13.0-17.5) 13.2 g/dL (13.0-17.5) Glucose (Fingerstick) 190 mg/dL (70-99) 207 mg/dL (70-99) White Blood Count 9.8 x10^3/uL (4.0-11.0) Red Blood Count 4.13 x10^6/uL (4.30-5.70) Hematocrit 39.3 % (39.0-53.0) Mean Corpuscular Volume 95 fL (79-100) Mean Corpuscular Hemoglobin 32 pg (25-35) Mean Corpuscular Hemoglobin Concent 34 g/dL (31-37) Red Cell Distribution Width 15.4 % (11.5-14.5) Platelet Count 106 x10^3/uL (140-400) Neutrophils (%) (Auto) 77 % (31-73) Lymphocytes (%) (Auto) 13 % (24-48) Monocytes (%) (Auto) 7 % (0-9) Eosinophils (%) (Auto) 2 % (0-3) Basophils (%) (Auto) 1 % (0-3) Neutrophils # (Auto) 7.5 x10^3/uL (1.8-7.7) Lymphocytes # (Auto) 1.3 x10^3/uL (1.0-4.8) Monocytes # (Auto) 0.7 x10^3/uL (0.0-1.1) Eosinophils # (Auto) 0.2 x10^3/uL (0.0-0.7) Basophils # (Auto) 0.1 x10^3/uL (0.0-0.2) Heparin Anti-Xa Act, Unfractionated 0.14 IU/mL (0.30-0.70) Sodium Level 139 mmol/L (136-145) Potassium Level 4.1 mmol/L (3.5-5.1) Chloride Level 100 mmol/L (98-107) Carbon Dioxide Level 29 mmol/L (21-32) Anion Gap 10 (6-14) Blood Urea Nitrogen 37 mg/dL (8-26) Creatinine 1.6 mg/dL (0.7-1.3) Estimated GFR (Cockcroft-Gault) 43.3 Glucose Level 181 mg/dL (70-99) Calcium Level 8.8 mg/dL (8.5-10.1) Test 05/26/20 17:08 05/26/20 18:19 05/26/20 19:10 05/27/20 01:10 Glucose (Fingerstick) 164 mg/dL (70-99) O2 Saturation 87 % (92-99) Arterial Blood pH 7.41 (7.35-7.45) Arterial Blood pCO2 at Patient Temp 37 mmHg (35-46) Arterial Blood pO2 at Patient Temp 57 mmHg (65-108) Arterial Blood HCO3 23 mmol/L (21-28) Arterial Blood Base Excess -2 mmol/L (-3-3) FiO2 100 nrb Hemoglobin 13.2 g/dL (13.0-17.5) Heparin Anti-Xa Act, Unfractionated 0.80 IU/mL (0.30-0.70) 0.60 IU/mL (0.30-0.70) Test 05/27/20 05:37 05/27/20 07:10 05/27/20 07:33 O2 Saturation 95 % (92-99) Arterial Blood pH 7.41 (7.35-7.45) Arterial Blood pCO2 at Patient Temp 37 mmHg (35-46) Arterial Blood pO2 at Patient Temp 85 mmHg (65-108) Arterial Blood HCO3 23 mmol/L (21-28) Arterial Blood Base Excess -1 mmol/L (-3-3) FiO2 45 White Blood Count 9.9 x10^3/uL (4.0-11.0) Red Blood Count 4.11 x10^6/uL (4.30-5.70) Hemoglobin 13.0 g/dL (13.0-17.5) Hematocrit 39.0 % (39.0-53.0) Mean Corpuscular Volume 95 fL (79-100) Mean Corpuscular Hemoglobin 32 pg (25-35) Mean Corpuscular Hemoglobin Concent 34 g/dL (31-37) Red Cell Distribution Width 15.3 % (11.5-14.5) Platelet Count 99 x10^3/uL (140-400) Prothrombin Time 14.0 SEC (11.7-14.0) Prothromb Time International Ratio 1.1 (0.8-1.1) Heparin Anti-Xa Act, Unfractionated 0.54 IU/mL (0.30-0.70) Sodium Level 133 mmol/L (136-145) Potassium Level 3.8 mmol/L (3.5-5.1) Chloride Level 98 mmol/L (98-107) Carbon Dioxide Level 24 mmol/L (21-32) Anion Gap 11 (6-14) Blood Urea Nitrogen 39 mg/dL (8-26) Creatinine 1.5 mg/dL (0.7-1.3) Estimated GFR (Cockcroft-Gault) 46.7 Glucose Level 204 mg/dL (70-99) Calcium Level 8.7 mg/dL (8.5-10.1) Glucose (Fingerstick) 185 mg/dL (70-99) Laboratory Tests Test 05/26/20 12:24 05/26/20 17:08 05/26/20 18:19 05/26/20 19:10 Glucose (Fingerstick) 207 mg/dL (70-99) 164 mg/dL (70-99) O2 Saturation 87 % (92-99) Arterial Blood pH 7.41 (7.35-7.45) Arterial Blood pCO2 at Patient Temp 37 mmHg (35-46) Arterial Blood pO2 at Patient Temp 57 mmHg (65-108) Arterial Blood HCO3 23 mmol/L (21-28) Arterial Blood Base Excess -2 mmol/L (-3-3) FiO2 100 nrb Hemoglobin 13.2 g/dL (13.0-17.5) Heparin Anti-Xa Act, Unfractionated 0.80 IU/mL (0.30-0.70) Test 05/27/20 01:10 05/27/20 05:37 05/27/20 07:10 05/27/20 07:33 Heparin Anti-Xa Act, Unfractionated 0.60 IU/mL (0.30-0.70) 0.54 IU/mL (0.30-0.70) O2 Saturation 95 % (92-99) Arterial Blood pH 7.41 (7.35-7.45) Arterial Blood pCO2 at Patient Temp 37 mmHg (35-46) Arterial Blood pO2 at Patient Temp 85 mmHg (65-108) Arterial Blood HCO3 23 mmol/L (21-28) Arterial Blood Base Excess -1 mmol/L (-3-3) FiO2 45 White Blood Count 9.9 x10^3/uL (4.0-11.0) Red Blood Count 4.11 x10^6/uL (4.30-5.70) Hemoglobin 13.0 g/dL (13.0-17.5) Hematocrit 39.0 % (39.0-53.0) Mean Corpuscular Volume 95 fL (79-100) Mean Corpuscular Hemoglobin 32 pg (25-35) Mean Corpuscular Hemoglobin Concent 34 g/dL (31-37) Red Cell Distribution Width 15.3 % (11.5-14.5) Platelet Count 99 x10^3/uL (140-400) Prothrombin Time 14.0 SEC (11.7-14.0) Prothromb Time International Ratio 1.1 (0.8-1.1) Sodium Level 133 mmol/L (136-145) Potassium Level 3.8 mmol/L (3.5-5.1) Chloride Level 98 mmol/L (98-107) Carbon Dioxide Level 24 mmol/L (21-32) Anion Gap 11 (6-14) Blood Urea Nitrogen 39 mg/dL (8-26) Creatinine 1.5 mg/dL (0.7-1.3) Estimated GFR (Cockcroft-Gault) 46.7 Glucose Level 204 mg/dL (70-99) Calcium Level 8.7 mg/dL (8.5-10.1) Glucose (Fingerstick) 185 mg/dL (70-99) Medications Active Scripts Medications Dose Route/Sig Max Daily Dose Days Date Category Dose Instructions Hydrocodone-Apap 5-325 (Hydrocodone Bit/Acetaminophen) 1 Tab Tablet 1 Tab PO PRN Q6HRS PRN 5 05/18/20 Rx Amox Tr-K Clv 500-125 Mg Tab (Amoxicillin/Potassium Clav) 1 Each Tablet 1 Tab PO BID 10 05/15/20 Rx Flomax (Tamsulosin Hcl) 0.4 Mg Cap.er.24h 1 Cap PO HS 05/09/20 Reported Fluticasone Propionate Nasal [place] (Fluticasone Propionate) 16 Gm [place].susp 2 [place] NS DAILY 05/09/20 Reported Linzess (Linaclotide) 145 Mcg Capsule 145 Mcg PO 3X/WEEK 05/09/20 Reported Fexofenadine Hcl 180 Mg Tablet 1 Tab PO DAILY 05/09/20 Reported Vitamin C (Ascorbic Acid) 500 Mg Capsule.er 1,000 Mg PO DAILY 05/09/20 Reported One Daily For Men Tablet (Multivits-Minerals/Fa/Lycopene) 1 Each Tablet 1 Tab PO DAILY 30 05/09/20 Reported Iron (Ferrous Sulfate) 325 Mg Tablet 65 Mg PO DAILY 05/09/20 Reported Allopurinol 300 Mg Tablet 1 Tab PO DAILY 05/09/20 Reported Aspirin Ec (Aspirin) 81 Mg Tablet.dr 1 Tab PO DAILY 02/21/20 Rx Vitamin D2 (Ergocalciferol (Vitamin D2)) 50,000 Unit Capsule 50,000 Unit PO WEEKLY 05/29/16 Reported Dose given on the Take on Pantoprazole Sodium (Pantoprazole Sodium) 40 Mg Tablet.dr 1 Tab PO DAILY 6/29/16 Reported Gave this morning take tomorrow morning Tizanidine Hcl 4 Mg Tablet 1 Tab PO QHS 05/31/15 Reported Gave dose last night Take tonight before bedtime Vascepa (Icosapent Ethyl) 1 Gm Capsule 1 Gm PO 09/23/14 Reported Not given on this admission Take as previoulsy instructed Atorvastatin Calcium 20 Mg Tablet 1 Tab PO HS 09/23/14 Reported Gave last night Take tonight Clopidogrel (Clopidogrel Bisulfate) 75 Mg Tablet 1 Tab PO DAILY 09/23/14 Reported Gave this morning take tomorrow morning Isosorbide Mononitrate Er (Isosorbide Mononitrate) 30 Mg Tab.er.24h 60 Mg PO DAILY 09/23/14 Reported Gave this morning take tomorrow morning Repaglinide 1 Mg Tablet 1 Mg PO 09/23/14 Reported Not given on this admission Continue as previously instructed Toprol Xl (Metoprolol Succinate) 50 Mg Tab.er.24h 1 Tab PO DAILY 09/23/14 Reported Gave this morning take tomorrow morning Impression . 1. Acute hypoxic respiratory failure likely due to pulmonary embolism. 2. CAD; s/p previous PCI/stents to the LCx and 1st diagonal. s/p PCI/JOELLE to the RCA 05/17/20. Trops are normal. EKG SR without acute changes. Clinically stable 3. Underlying morbid obesity with a BMI of 54. 4. Acute kidney injury versus chronic kidney disease. 5. Clots around ramirez, obstructive uropathy/ hematuria 6. DVT Plan . 1. Continue present 15 liters of oxygen/ alternating with BIPAP 2. Discussed with RN. At this time, I will continue with full-dose heparinization for pulmonary embolism. Needs urology help. Not available at our hospital. 3. Monitor urine output and H/H closely 4. venous Dopplers of lower extremities positive for DVT 5. Follow cardiology recommendations. 6. Weight loss is strongly emphasized. 7. Consider sleep study as an outpatient. 8. Neg COVID testing 9. Discussed with RN 10. Reamins critically ill. Hb still holding , hold off on IVC filter for now cct 35 min including complex decision making, review of records and labs WASHINGTON HORVATH MD May 27, 2020 09:36
[2020-05-27] MEDS: FERROUS SULFATE 325 MG TABLET. PO SCH (09:48)
[2020-05-27] MEDS: FUROSEMIDE 40 MG TABLET. PO SCH (09:48)
[2020-05-27] MEDS: FAMOTIDINE 20 MG TABLET. PO SCH ×2 (09:49→20:49)
[2020-05-27] MEDS: METOPROLOL SUCC 24HR ER 50 MG TAB.ER.24H. PO SCH (09:49)
[2020-05-27] MEDS: ISOSORBIDE MONONITRATE ER 30 MG TAB.ER.24H PO SCH (09:49)
[2020-05-27] MEDS: ASPIRIN ENTERIC COATED 81 MG TABLET.DR. PO SCH (09:49)
[2020-05-27] MEDS: LACTOBACILLUS RHAMNOSUS GG 1 CAPSULE. PO SCH ×2 (09:49→20:49)
[2020-05-27] MEDS: CLOPIDOGREL BISULFATE 75 MG TABLET PO SCH (09:50)
[2020-05-27] MEDS: FLUTICASONE 50MCG/NASAL SPRAY 16GM BOTTLE. NS SCH (09:50)
--- NOTE | 2020-05-27 10:11 | NUR ---
Pharmacy Warfarin Dosing Note S:Pharmacy consulted to assist with anticoagulation therapy started 05/26/20 with target INR: 2 -3 O:HARPREET HERR is a 69 year old M with DVT/PE LABS: Last INR: 1.1 Last HGB: 13 Last HCT: 39 Last PLT: 99 Last dose of 7.5 mg given on 05/26/20 at Previous Regimen: Vitamin K given: Drug Interaction Changes: None Ongoing Drug Interactions: A:INR of 1.1 is below desired range. Target range for this patient is: 2 -3 P: Warfarin dose: 8MG Today at 1600 Bridge Therapy: Heparin Therapeutic Next INR due TOMORROW. Pharmacy anticoagulation service will continue to follow. STELLA ALFONSO [facility] [place], 05/27/20 1011
--- NOTE | 2020-05-27 12:44 | PDOC ---
PROGRESS NOTES Subjective Subjective c/o atypical chest pain Objective Objective Vital Signs Date Time Temp Pulse Resp B/P (MAP) Pulse Ox O2 Delivery O2 Flow Rate FiO2 05/27/20 12:25 92 BiPAP/CPAP 05/27/20 12:01 15.0 05/27/20 12:00 98.0 77 12 119/70 (86) 98.0 Intake and Output 05/27/20 07:00 Intake Total 1988 ml Output Total 1430 ml Balance 558 ml Intake Oral 1510 ml IV Total 478 ml Output Urine Total 1430 ml Physical Exam Abdomen: Other (obese) Heart: Regular rate (SR) Extremities: No cyanosis General: Alert, Oriented X3 HEENT: Atraumatic Lungs: Other (diminished ) Neuro: Normal speech, Sensation intact Psych/Mental Status: Mental status NL, Other (anxious) Skin: No breakdown Assessment Assessment 1. Acute hypoxemic respiratory failure: Secondary to combination of acute on chronic diastolic heart failure and acute pulmonary embolism. Continue heparin infusion per protocol. Telemetry did not show any significant arrhythmias. COVID test negative. Patient needing 15L O2 alternating with BiPAP. Pulmonary team following. 2. Chest pain: doubt ACS, noncardiac and most probably pleuritic secondary to PE 3. CAD; s/p previous PCI/stents to the LCx and 1st diagonal. s/p PCI/JOELLE to the RCA 05/17/20. Trops are normal. EKG SR without acute changes. Clinically stable 4. Acute on chronic diastolic CHF, better compensated with diuresis 5. SUSANA: uses bipap 5. Hypertension; controlled 6. Hyperlipiemia; statin 7. DM2, per IM 8. SONIYA on CKD3 9. Morbid obesity 10. BPH with gross hematuria: likely trauma from ramirez insertion, per IM Plan Plan of Care Problems Medical Problems: (1) Chest pressure Status: Acute (2) Congestive heart failure (CHF) Status: Acute Comment Review of Relevant I have reviewed the following items jm (where applicable) has been applied. Labs Laboratory Tests Test 05/26/20 17:08 05/26/20 18:19 05/26/20 19:10 05/27/20 01:10 Glucose (Fingerstick) 164 mg/dL (70-99) O2 Saturation 87 % (92-99) Arterial Blood pH 7.41 (7.35-7.45) Arterial Blood pCO2 at Patient Temp 37 mmHg (35-46) Arterial Blood pO2 at Patient Temp 57 mmHg (65-108) Arterial Blood HCO3 23 mmol/L (21-28) Arterial Blood Base Excess -2 mmol/L (-3-3) FiO2 100 nrb Hemoglobin 13.2 g/dL (13.0-17.5) Heparin Anti-Xa Act, Unfractionated 0.80 IU/mL (0.30-0.70) 0.60 IU/mL (0.30-0.70) Test 05/27/20 05:37 05/27/20 07:10 05/27/20 07:33 05/27/20 11:41 O2 Saturation 95 % (92-99) Arterial Blood pH 7.41 (7.35-7.45) Arterial Blood pCO2 at Patient Temp 37 mmHg (35-46) Arterial Blood pO2 at Patient Temp 85 mmHg (65-108) Arterial Blood HCO3 23 mmol/L (21-28) Arterial Blood Base Excess -1 mmol/L (-3-3) FiO2 45 White Blood Count 9.9 x10^3/uL (4.0-11.0) Red Blood Count 4.11 x10^6/uL (4.30-5.70) Hemoglobin 13.0 g/dL (13.0-17.5) Hematocrit 39.0 % (39.0-53.0) Mean Corpuscular Volume 95 fL (79-100) Mean Corpuscular Hemoglobin 32 pg (25-35) Mean Corpuscular Hemoglobin Concent 34 g/dL (31-37) Red Cell Distribution Width 15.3 % (11.5-14.5) Platelet Count 99 x10^3/uL (140-400) Prothrombin Time 14.0 SEC (11.7-14.0) Prothromb Time International Ratio 1.1 (0.8-1.1) Heparin Anti-Xa Act, Unfractionated 0.54 IU/mL (0.30-0.70) Sodium Level 133 mmol/L (136-145) Potassium Level 3.8 mmol/L (3.5-5.1) Chloride Level 98 mmol/L (98-107) Carbon Dioxide Level 24 mmol/L (21-32) Anion Gap 11 (6-14) Blood Urea Nitrogen 39 mg/dL (8-26) Creatinine 1.5 mg/dL (0.7-1.3) Estimated GFR (Cockcroft-Gault) 46.7 Glucose Level 204 mg/dL (70-99) Calcium Level 8.7 mg/dL (8.5-10.1) Glucose (Fingerstick) 185 mg/dL (70-99) 205 mg/dL (70-99) Microbiology 05/24/20 Urine Culture - Final, Complete 05/24/20 Blood Culture - Preliminary, Resulted NO GROWTH AFTER 3 DAYS Medications Current Medications Acetaminophen/ Hydrocodone Bitart (Lortab 5/325) 1 tab PRN Q4HRS PRN PO MODERATE PAIN Last administered on 05/27/20at 01:15; Start 05/26/20 at 14:45 Insulin Glargine (Lantus Syringe) 10 unit QHS SQ Last administered on 05/26/20at 21:12; Start 05/26/20 at 21:00 Warfarin Sodium (Coumadin) 7.5 mg 1X WARF ONCE PO Last administered on 05/26/20at 16:02; Start 05/26/20 at 16:00; Stop 05/26/20 at 16:01; Status DC Warfarin Sodium (Coumadin) 8 mg 1X WARF ONCE PO ; Start 05/27/20 at 16:00; Stop 05/27/20 at 16:01 Vitals/I & O Vital Sign - Last 24 Hours 05/26/20 05/26/20 05/26/20 05/26/20 14:48 15:15 15:19 16:23 Temp 96.9 96.9 Pulse 70 68 Resp 16 14 B/P (MAP) 132/70 (90) 142/73 (96) Pulse Ox 97 94 94 93 O2 Delivery Venturi Mask Venturi Mask Venturi Mask Venturi Mask O2 Flow Rate 15.0 15.0 15.0 15.0 05/26/20 05/26/20 05/26/20 05/26/20 17:06 17:15 18:05 18:30 Pulse 85 Resp 12 B/P (MAP) 115/73 (87) Pulse Ox 85 83 83 96 O2 Delivery Venturi Mask Venturi Mask NonRebreather Mask BiPAP/CPAP O2 Flow Rate 15.0 15.0 15.0 05/26/20 05/26/20 05/26/20 05/26/20 18:35 19:00 19:07 19:30 Pulse 86 84 Resp 16 B/P (MAP) 123/73 (90) 124/74 (91) Pulse Ox 87 93 95 94 O2 Delivery NonRebreather Mask BiPAP/CPAP BiPAP/CPAP BiPAP/CPAP O2 Flow Rate 15.0 05/26/20 05/26/20 05/26/20 05/26/20 19:37 20:00 20:00 21:00 Temp 96.8 96.8 Pulse 78 82 Resp 16 16 16 B/P (MAP) 104/85 (91) 108/72 (84) Pulse Ox 95 94 94 O2 Delivery BiPAP/CPAP BiPAP/CPAP Bi-pap BiPAP/CPAP O2 Flow Rate 15.0 15.0 15.0 05/26/20 05/26/20 05/26/20 05/26/20 21:08 22:00 22:08 23:00 Pulse 74 77 Resp 16 16 16 16 B/P (MAP) 126/78 (94) 115/70 (85) Pulse Ox 95 98 98 99 O2 Delivery BiPAP/CPAP BiPAP/CPAP BiPAP/CPAP BiPAP/CPAP O2 Flow Rate 15.0 15.0 05/26/20 05/26/20 05/27/20 05/27/20 23:10 23:40 00:00 00:00 Temp 96.2 96.2 Pulse 79 Resp 16 16 16 B/P (MAP) 117/74 (88) Pulse Ox 95 100 89 O2 Delivery BiPAP/CPAP BiPAP/CPAP BiPAP/CPAP Bi-pap O2 Flow Rate 10.0 10.0 05/27/20 05/27/20 05/27/20 05/27/20 01:00 01:15 02:00 02:15 Pulse 80 77 Resp 16 18 16 18 B/P (MAP) 131/77 (95) 112/70 (84) Pulse Ox 91 91 95 95 O2 Delivery BiPAP/CPAP BiPAP/CPAP BiPAP/CPAP BiPAP/CPAP O2 Flow Rate 10.0 05/27/20 05/27/20 05/27/20 05/27/20 03:00 03:42 04:00 04:00 Temp 96.6 96.6 Pulse 72 69 Resp 16 16 B/P (MAP) 116/75 (89) 118/71 (87) Pulse Ox 96 94 97 O2 Delivery BiPAP/CPAP BiPAP/CPAP BiPAP/CPAP Bi-pap O2 Flow Rate 10.0 05/27/20 05/27/20 05/27/20 05/27/20 04:30 05:00 05:00 06:00 Temp 97.2 97.2 Pulse 77 72 Resp 16 16 16 16 B/P (MAP) 126/81 (96) 140/84 (102) Pulse Ox 97 96 95 95 O2 Delivery BiPAP/CPAP BiPAP/CPAP BiPAP/CPAP BiPAP/CPAP 05/27/20 05/27/20 05/27/20 05/27/20 07:00 08:00 08:00 08:09 Temp 97.3 97.3 Pulse 74 71 Resp 12 13 B/P (MAP) 136/73 (94) 102/69 (80) Pulse Ox 95 94 95 O2 Delivery BiPAP/CPAP Bi-pap BiPAP/CPAP BiPAP/CPAP 05/27/20 05/27/20 05/27/20 05/27/20 09:00 09:49 09:49 09:55 Pulse 73 73 73 Resp 14 15 B/P (MAP) 128/70 (89) 128/70 128/70 Pulse Ox 93 93 O2 Delivery Venturi Mask Venturi Mask O2 Flow Rate 15.0 15.0 05/27/20 05/27/20 05/27/20 05/27/20 10:00 10:25 11:00 12:00 Temp 98.0 98.0 Pulse 77 75 77 Resp 16 14 14 12 B/P (MAP) 115/63 (80) 113/77 (89) 119/70 (86) Pulse Ox 92 92 93 91 O2 Delivery Venturi Mask Venturi Mask Venturi Mask Venturi Mask O2 Flow Rate 15.0 15.0 15.0 15.0 05/27/20 05/27/20 12:01 12:25 Pulse Ox 92 O2 Delivery Venturi Mask BiPAP/CPAP O2 Flow Rate 15.0 Intake and Output 05/26/20 05/26/20 05/27/20 15:00 23:00 07:00 Intake Total 360 ml 610 ml 1018 ml Output Total 400 ml 605 ml 425 ml Balance -40 ml 5 ml 593 ml STERLING CLARK MD May 27, 2020 12:44
[2020-05-27] MEDS ORDERED: WARFARIN 4 MG TABLET. PO ONE (16:00)
[2020-05-27] MEDS: TAMSULOSIN 0.4 MG CAP.ER.24H. PO SCH (20:49)
[2020-05-27] MEDS: ATORVASTATIN CALCIUM 20 MG TABLET PO SCH (20:49)
[2020-05-27] MEDS: INSULIN GLARGINE SYRINGE. SQ SCH (20:59)
[2020-05-28] VITALS (24 sets, daily range): BP systolic 96–140; BP diastolic 53–82
[2020-05-28 05:00] LABS: PROTHROMBIN TIME PATIENT 14.4 SEC (11.7-14.0)
[2020-05-28 05:01] LABS: UNFRACTIONATED HEPARIN TESTING 0.44 IU/mL (0.30-0.70)
[2020-05-28] MEDS: MORPHINE SULFATE 4 MG/ML VIAL. IV PRN ×2 (06:21→12:56)
[2020-05-28 06:52] LABS: CALCIUM 8.7 mg/dL (8.5-10.1); CREATININE 1.7 mg/dL (0.7-1.3); GFR 40.4; POTASSIUM 3.7 mmol/L (3.5-5.1)
[2020-05-28] MEDS: HEPARIN 25,000UTS/250ML PREMIX 250 ML IV PRN (07:06)
[2020-05-28] MEDS: LACTOBACILLUS RHAMNOSUS GG 1 CAPSULE. PO SCH ×2 (08:05→20:58)
[2020-05-28] MEDS: FAMOTIDINE 20 MG TABLET. PO SCH ×2 (08:05→20:58)
[2020-05-28] MEDS: METOPROLOL SUCC 24HR ER 50 MG TAB.ER.24H. PO SCH (08:07)
[2020-05-28] MEDS: FERROUS SULFATE 325 MG TABLET. PO SCH (08:07)
[2020-05-28] MEDS: ASPIRIN ENTERIC COATED 81 MG TABLET.DR. PO SCH (08:07)
[2020-05-28] MEDS: FUROSEMIDE 40 MG TABLET. PO SCH (08:07)
[2020-05-28] MEDS: CLOPIDOGREL BISULFATE 75 MG TABLET PO SCH (08:07)
[2020-05-28] MEDS: INSULIN LISPRO 300 UNITS/3 ML VIAL. SQ SCH ×4 (08:09→20:59)
[2020-05-28] MEDS: FLUTICASONE 50MCG/NASAL SPRAY 16GM BOTTLE. NS SCH (08:19)
[2020-05-28] MEDS: ISOSORBIDE MONONITRATE ER 30 MG TAB.ER.24H PO SCH (08:19)
--- NOTE | 2020-05-28 08:31 | NUR ---
Pt recently discharged from our facility having cardiac stent placed. Pt went to rehab and now back with SOB. + for PE. Would benefit from PT/OT services once medically stable. Addendum: 05/28/20 at 0832 by JEANNIE BAHENA PT Amended: Links added.
--- NOTE | 2020-05-28 08:33 | PDOC ---
[employer] [facility] PROGRESS NOTE Chief Complaint Chief Complaint impression Chest pain - likely multifactorial, almost certainly with a PE, troponins trended down, he has significant CAD. likely PE. Cardiology consult. Cont heparin GTT Acute hypoxic respiratory failure - likely 2/2 acute CHF, however, with his healthcare exposure COVID testing is indicated Shortness of breath - likely from above. Pulmonary embolism highly likely Bilateral DVT - non-occlusive, up beyond politeal fossa CAD - s/p previous PCI/stents to the LCx and 1st diagonal. s/p PCI/JOELLE to the RCA Hematuria - will continue bladder irrigation. If ramirez occludes we do not have Urology coverage and he would require transfer to another facility, he prefers Dr. Lamas, who is his primary Urologist. Acute on chronic diastolic CHF - c/o dyspnea and CXR with vascular congestion. change to PO lasix, strict i/o, ramirez placed Hypertension - controlled Hyperlipiemia - statin SONIYA on CKD - Cr 1.9. This was certainly vasomotor nephropathy SUSANA with CPAP BPH - cont meds HTN - controlled Morbid obesity with SUSANA - CPAP at home DM2 - sliding scale FEN - Cardiac PPX - heparin FULL CODE Dispo - inpatient icu bed History of Present Illness History of Present Illness Mr Drake is a 69 yo M w/ PMHx CAD s/p stents, DM2, GERD, HLD, HTN, chronic back pain, constipation, and recent diagnosis of BPH who was recently seen at this facility for RCA stenting returns from SNF today c/o worsening shortness of breath and heavy chest pressure. No leg swelling or leg pain. He was recently admitted 05/09-05/16 for UTI/prostatitis as well as sciatica, then readmitted with NSTEMI and RCA stenting on 05/17, discharged 05/22 to SNF. Report from SNF states the patient was on 3 to 4 L oxygen since his recent cardiac cath but today noted with oxygen 80% on 6 L nasal cannula. Patient states he felt a little dizzy after standing up earlier, however states this is improved. Recently had negative COVID test. CXR with bilateral interstitial infiltrate pattern. Pulmonary perfusion imaging was performed without ventilatory scan and was interpreted by radiology as high probability for PE given the bilateral perfusion defects, on chest x-ray it appears that the same pattern as the interstitial infiltrate however. Labs significant for WBC 14.8, Hb 13.7 platelets 142, NA 138, K4.1, BUN 49, CR 1.9, glucose 204, lactic acid 3.3, INR 1.2, AST 45, BNP 4329, troponin 0 0.042. EKG with QRS consistent with prior inferolateral infarct. ED had given lovenox for concern for PE. Ramirez placed and lasix given. Admitted for further care under investigation for COVID 19. 05/28/2020 Patient seen and examined bedside. toleratin diet. Had 150 cc UOp this morning. 90% O2 saturation at 10L NC. BipAP overnight and tolerated. 05/25: Some rincon tinged urine for Ramirez. No clots noted. His breathing is improved. Changed to heparin and warfarin as he was given Lovenox in the ED and weightbase protocol will not work for this. His chest pressure is improved. Still on 12 L facemask O2. COVID 19 negative CC time 38 minutes Vitals/I&O Vitals/I&O: Vital Signs Date Time Temp Pulse Resp B/P (MAP) Pulse Ox O2 Delivery O2 Flow Rate FiO2 05/28/20 08:19 75 117/67 05/28/20 07:00 13 93 BiPAP/CPAP 05/28/20 04:00 98.0 98.0 05/27/20 18:00 15.0 I & O 05/27/20 05/27/20 05/28/20 15:00 23:00 07:00 Intake Total 1440 ml 1200 ml 864.2 ml Output Total 415 ml 455 ml 385 ml Balance 1025 ml 745 ml 479.2 ml Physical Exam Physical Exam: Constitutional: no acute distress, Obese HENT: Normocephalic, atraumatic, bilateral external ears normal, oropharynx moist, no oral exudates, nose normal. Eyes: PERRLA, EOMI, conjunctiva normal, no discharge Cardiovascular:Heart rate regular rhythm, no murmur Lungs & Thorax: Bilateral breath sounds clear to auscultation Abdomen: Bowel sounds normal, soft, no tenderness, no masses, no pulsatile masses. Skin: Warm, dry, no erythema, no rash. Back: No tenderness, no CVA tenderness. Extremities: No tenderness, no cyanosis, no clubbing, ROM intact, no edema. Neurologic: Alert and oriented X 3, normal motor function, normal sensory function, no focal deficits noted. General: Alert, Oriented X3 Heart: Regular rate (SR) Lungs: Clear Abdomen: Other (obese) Extremities: No cyanosis Skin: No breakdown Labs Labs: Laboratory Tests Test 05/27/20 11:41 05/27/20 16:46 05/27/20 20:56 05/28/20 04:25 Glucose (Fingerstick) 205 mg/dL (70-99) 189 mg/dL (70-99) 211 mg/dL (70-99) Prothrombin Time 14.4 SEC (11.7-14.0) Prothromb Time International Ratio 1.2 (0.8-1.1) Heparin Anti-Xa Act, Unfractionated 0.44 IU/mL (0.30-0.70) Sodium Level 133 mmol/L (136-145) Potassium Level 3.7 mmol/L (3.5-5.1) Chloride Level 98 mmol/L (98-107) Carbon Dioxide Level 28 mmol/L (21-32) Anion Gap 7 (6-14) Blood Urea Nitrogen 44 mg/dL (8-26) Creatinine 1.7 mg/dL (0.7-1.3) Estimated GFR (Cockcroft-Gault) 40.4 Glucose Level 189 mg/dL (70-99) Calcium Level 8.7 mg/dL (8.5-10.1) Review of Systems Review of Systems: CONSTITUTIONAL: No fever or chills EYES: No recent changes SKIN: No rash or itching CARDIOVASCULAR: No chest pain, syncope, palpitations, or edema RESPIRATORY: No SOB or cough GASTROINTESTINAL: No nausea, vomiting or abdominal pain NEUROLOGICAL: No headaches or weakness ENDOCRINE: No cold or heat intolerance GENITOURINARY: No urgency or frequency of urination MUSCULOSKELETAL: No back pain or joint pain LYMPHATICS: No enlarged lymph nodes PSYCHIATRIC: No anxiety or depression Assessment and Plan Assessmemt and Plan Problems Medical Problems: (1) Chest pressure Status: Acute (2) Congestive heart failure (CHF) Status: Acute Comment Review of Relevant I have reviewed the following items jm (where applicable) has been applied. Medications: Current Medications Medications (Trade) Dose Ordered Sig/Micah Route PRN Reason Start Time Stop Time Status Last Admin Dose Admin Warfarin Sodium (Coumadin) 8 mg 1X WARF ONCE PO 05/27/20 16:00 05/27/20 16:01 DC 05/27/20 16:44 Justicifation of Admission Dx: Justifications for Admission: Justification of Admission Dx: Yes CHF: Hemodynamic Instability Angina: Symp at Rest MARIEL OLIVEIRA MD May 28, 2020 08:33
[2020-05-28] MEDS ORDERED: POTASSIUM CHLORIDE 20MEQ 100 ML IV ONE (08:45)
[2020-05-28] MEDS ORDERED: POTASSIUM CHLORIDE 20 MEQ TABLET.ER. PO ONE (08:45)
[2020-05-28] MEDS: POTASSIUM CHLORIDE 10MEQ 100 ML IV SCH ×4 (09:14→14:11)
--- NOTE | 2020-05-28 11:37 | NUR ---
Wound Care Wound Type/Assessment: Pressure ulcer (STII) to R side of nose. No other open areas noted on Head to toe assessment. Treatment Recommendations/Plan: Skin prep and bandaid, change QOD. Education provided: Pt declined to be turned on side and positioned with pillows and wedge. Education regarding prevention of pressure ulcers Offloading surface/device: ICU bed
--- NOTE | 2020-05-28 11:37 | PDOC ---
PULMONARY PROGRESS NOTES Subjective on BIPAP down to 40%FIO2 hematuria improved DVT Vitals Vital Signs Date Time Temp Pulse Resp B/P (MAP) Pulse Ox O2 Delivery O2 Flow Rate FiO2 05/28/20 11:00 72 17 128/74 (92) 94 BiPAP/CPAP 05/28/20 08:00 97.6 10.0 97.6 ROS: No Chest Pain, No Increase Cough General: Alert, No acute distress Lungs: Clear Cardiovascular: S1 Abdomen: Soft, Other (obese) Neuro Exam: Alert Extremities: Other (2+edema) Labs Laboratory Tests Test 05/26/20 12:24 05/26/20 17:08 05/26/20 18:19 05/26/20 19:10 Glucose (Fingerstick) 207 mg/dL (70-99) 164 mg/dL (70-99) O2 Saturation 87 % (92-99) Arterial Blood pH 7.41 (7.35-7.45) Arterial Blood pCO2 at Patient Temp 37 mmHg (35-46) Arterial Blood pO2 at Patient Temp 57 mmHg (65-108) Arterial Blood HCO3 23 mmol/L (21-28) Arterial Blood Base Excess -2 mmol/L (-3-3) FiO2 100 nrb Hemoglobin 13.2 g/dL (13.0-17.5) Heparin Anti-Xa Act, Unfractionated 0.80 IU/mL (0.30-0.70) Test 05/27/20 01:10 05/27/20 05:37 05/27/20 07:10 05/27/20 07:33 Heparin Anti-Xa Act, Unfractionated 0.60 IU/mL (0.30-0.70) 0.54 IU/mL (0.30-0.70) O2 Saturation 95 % (92-99) Arterial Blood pH 7.41 (7.35-7.45) Arterial Blood pCO2 at Patient Temp 37 mmHg (35-46) Arterial Blood pO2 at Patient Temp 85 mmHg (65-108) Arterial Blood HCO3 23 mmol/L (21-28) Arterial Blood Base Excess -1 mmol/L (-3-3) FiO2 45 White Blood Count 9.9 x10^3/uL (4.0-11.0) Red Blood Count 4.11 x10^6/uL (4.30-5.70) Hemoglobin 13.0 g/dL (13.0-17.5) Hematocrit 39.0 % (39.0-53.0) Mean Corpuscular Volume 95 fL (79-100) Mean Corpuscular Hemoglobin 32 pg (25-35) Mean Corpuscular Hemoglobin Concent 34 g/dL (31-37) Red Cell Distribution Width 15.3 % (11.5-14.5) Platelet Count 99 x10^3/uL (140-400) Prothrombin Time 14.0 SEC (11.7-14.0) Prothromb Time International Ratio 1.1 (0.8-1.1) Sodium Level 133 mmol/L (136-145) Potassium Level 3.8 mmol/L (3.5-5.1) Chloride Level 98 mmol/L (98-107) Carbon Dioxide Level 24 mmol/L (21-32) Anion Gap 11 (6-14) Blood Urea Nitrogen 39 mg/dL (8-26) Creatinine 1.5 mg/dL (0.7-1.3) Estimated GFR (Cockcroft-Gault) 46.7 Glucose Level 204 mg/dL (70-99) Calcium Level 8.7 mg/dL (8.5-10.1) Glucose (Fingerstick) 185 mg/dL (70-99) Test 05/27/20 11:41 05/27/20 16:46 05/27/20 20:56 05/28/20 04:25 Glucose (Fingerstick) 205 mg/dL (70-99) 189 mg/dL (70-99) 211 mg/dL (70-99) Prothrombin Time 14.4 SEC (11.7-14.0) Prothromb Time International Ratio 1.2 (0.8-1.1) Heparin Anti-Xa Act, Unfractionated 0.44 IU/mL (0.30-0.70) Sodium Level 133 mmol/L (136-145) Potassium Level 3.7 mmol/L (3.5-5.1) Chloride Level 98 mmol/L (98-107) Carbon Dioxide Level 28 mmol/L (21-32) Anion Gap 7 (6-14) Blood Urea Nitrogen 44 mg/dL (8-26) Creatinine 1.7 mg/dL (0.7-1.3) Estimated GFR (Cockcroft-Gault) 40.4 Glucose Level 189 mg/dL (70-99) Calcium Level 8.7 mg/dL (8.5-10.1) Laboratory Tests Test 05/27/20 11:41 05/27/20 16:46 05/27/20 20:56 05/28/20 04:25 Glucose (Fingerstick) 205 mg/dL (70-99) 189 mg/dL (70-99) 211 mg/dL (70-99) Prothrombin Time 14.4 SEC (11.7-14.0) Prothromb Time International Ratio 1.2 (0.8-1.1) Heparin Anti-Xa Act, Unfractionated 0.44 IU/mL (0.30-0.70) Sodium Level 133 mmol/L (136-145) Potassium Level 3.7 mmol/L (3.5-5.1) Chloride Level 98 mmol/L (98-107) Carbon Dioxide Level 28 mmol/L (21-32) Anion Gap 7 (6-14) Blood Urea Nitrogen 44 mg/dL (8-26) Creatinine 1.7 mg/dL (0.7-1.3) Estimated GFR (Cockcroft-Gault) 40.4 Glucose Level 189 mg/dL (70-99) Calcium Level 8.7 mg/dL (8.5-10.1) Medications Active Scripts Medications Dose Route/Sig Max Daily Dose Days Date Category Dose Instructions Hydrocodone-Apap 5-325 (Hydrocodone Bit/Acetaminophen) 1 Tab Tablet 1 Tab PO PRN Q6HRS PRN 5 05/18/20 Rx Amox Tr-K Clv 500-125 Mg Tab (Amoxicillin/Potassium Clav) 1 Each Tablet 1 Tab PO BID 10 05/15/20 Rx Flomax (Tamsulosin Hcl) 0.4 Mg Cap.er.24h 1 Cap PO HS 05/09/20 Reported Fluticasone Propionate Nasal [place] (Fluticasone Propionate) 16 Gm Olden.susp 2 Olden NS DAILY 05/09/20 Reported Linzess (Linaclotide) 145 Mcg Capsule 145 Mcg PO 3X/WEEK 05/09/20 Reported Fexofenadine Hcl 180 Mg Tablet 1 Tab PO DAILY 05/09/20 Reported Vitamin C (Ascorbic Acid) 500 Mg Capsule.er 1,000 Mg PO DAILY 05/09/20 Reported One Daily For Men Tablet (Multivits-Minerals/Fa/Lycopene) 1 Each Tablet 1 Tab PO DAILY 30 05/09/20 Reported Iron (Ferrous Sulfate) 325 Mg Tablet 65 Mg PO DAILY 05/09/20 Reported Allopurinol 300 Mg Tablet 1 Tab PO DAILY 05/09/20 Reported Aspirin Ec (Aspirin) 81 Mg Tablet. 1 Tab PO DAILY 02/21/20 Rx Vitamin D2 (Ergocalciferol (Vitamin D2)) 50,000 Unit Capsule 50,000 Unit PO WEEKLY 05/29/16 Reported Dose given on the Take on Pantoprazole Sodium (Pantoprazole Sodium) 40 Mg Tablet.dr 1 Tab PO DAILY 04/30/16 Reported Gave this morning take tomorrow morning Tizanidine Hcl 4 Mg Tablet 1 Tab PO QHS 05/31/15 Reported Gave dose last night Take tonight before bedtime Vascepa (Icosapent Ethyl) 1 Gm Capsule 1 Gm PO 09/23/14 Reported Not given on this admission Take as previoulsy instructed Atorvastatin Calcium 20 Mg Tablet 1 Tab PO HS 09/23/14 Reported Gave last night Take tonight Clopidogrel (Clopidogrel Bisulfate) 75 Mg Tablet 1 Tab PO DAILY 09/23/14 Reported Gave this morning take tomorrow morning Isosorbide Mononitrate Er (Isosorbide Mononitrate) 30 Mg Tab.er.24h 60 Mg PO DAILY 09/23/14 Reported Gave this morning take tomorrow morning Repaglinide 1 Mg Tablet 1 Mg PO 09/23/14 Reported Not given on this admission Continue as previously instructed Toprol Xl (Metoprolol Succinate) 50 Mg Tab.er.24h 1 Tab PO DAILY 09/23/14 Reported Gave this morning take tomorrow morning Impression . 1. Acute hypoxic respiratory failure due to pulmonary embolism. 2. CAD; s/p previous PCI/stents to the LCx and 1st diagonal. s/p PCI/JOELLE to the RCA 05/17/20. Trops are normal. EKG SR without acute changes. Clinically stable 3. Underlying morbid obesity with a BMI of 54. 4. Acute kidney injury versus chronic kidney disease. 5. Clots around ramirez, obstructive uropathy/ hematuria 6. DVT bilateral Plan . 1. try off BIPAP 2. Discussed with RN. At this time, initiate Eliquis and dc heparin, hematuria has improved 3. Monitor urine output and H/H closely 4. venous Dopplers of lower extremities positive for DVT 5. Follow cardiology recommendations. 6. Weight loss is strongly emphasized. 7. Consider sleep study as an outpatient. 8. Neg COVID testing 9. Discussed with RN 10. cct 30 min including complex decision making, review of records and labs WASHINGTON HORVATH MD May 28, 2020 11:37
[2020-05-28] MEDS ORDERED: ANTI-COAG MONITOR BY PHARMACY. MC PRN (11:45)
[2020-05-28] MEDS ORDERED: APIXABAN 5 MG TABLET. PO SCH (12:00)
--- NOTE | 2020-05-28 14:57 | PDOC ---
CARDIO Progress Notes Date and Time Date of Service 05/28/20 Time of Evaluation 1050 Subjective Subjective: No Chest Pain, No Palpitations, Other (still SOA) Vitals Vitals Vital Signs Date Time Temp Pulse Resp B/P (MAP) Pulse Ox O2 Delivery O2 Flow Rate FiO2 05/28/20 14:00 72 15 117/74 (88) 94 Nasal Cannula 10.0 05/28/20 12:00 97.3 97.3 Weight Weight [ ] Input and Output Intake and Output Intake and Output 05/28/20 07:00 Intake Total 3504.2 ml Output Total 1340 ml Balance 2164.2 ml Intake Oral 2880 ml IV Total 624.2 ml Output Urine Total 1340 ml Laboratory Labs Laboratory Tests Test 05/27/20 16:46 05/27/20 20:56 05/28/20 04:25 05/28/20 12:05 Glucose (Fingerstick) 189 mg/dL (70-99) 211 mg/dL (70-99) 190 mg/dL (70-99) Prothrombin Time 14.4 SEC (11.7-14.0) Prothromb Time International Ratio 1.2 (0.8-1.1) Heparin Anti-Xa Act, Unfractionated 0.44 IU/mL (0.30-0.70) Sodium Level 133 mmol/L (136-145) Potassium Level 3.7 mmol/L (3.5-5.1) Chloride Level 98 mmol/L (98-107) Carbon Dioxide Level 28 mmol/L (21-32) Anion Gap 7 (6-14) Blood Urea Nitrogen 44 mg/dL (8-26) Creatinine 1.7 mg/dL (0.7-1.3) Estimated GFR (Cockcroft-Gault) 40.4 Glucose Level 189 mg/dL (70-99) Calcium Level 8.7 mg/dL (8.5-10.1) Microbiology Micro Microbiology 05/24/20 Urine Culture - Final, Complete 05/24/20 Blood Culture - Preliminary, Resulted NO GROWTH AFTER 4 DAYS Physical Exam HEENT: Neck Supple W Full Motion Chest: Symmetric LUNGS: Other (diminished ) Heart: S1S2, RRR Extremities: Other (1+ bilateral LE edema ) Neurology: alert, oriented, follow commands Assessment Assessment 1. Acute hypoxemic respiratory failure: Secondary to combination of acute on chronic diastolic heart failure and acute pulmonary embolism. Telemetry did not show any significant arrhythmias. COVID test negative. Eliquis initiated 2. Chest pain: doubt ACS, noncardiac and most probably pleuritic secondary to PE 3. CAD; s/p previous PCI/stents to the LCx and 1st diagonal. s/p PCI/JOELLE to the RCA 05/17/20. Trops are normal. EKG SR without acute changes. Clinically stable 4. Acute on chronic diastolic CHF, better compensated with diuresis 5. SUSANA: uses bipap 5. Hypertension; controlled 6. Hyperlipiemia; statin 7. DM2, per IM 8. SONIYA on CKD3 9. Morbid obesity 10. BPH with gross hematuria: likely trauma from ramirez insertion, per IM Recommendations Lasix therapy. Additional PRN Secondary prevention Continue triple therapy with Eliquis, ASA, and Plavix x1 month. Then discontinue ASA and continue with Eliquis and Plavix only. Supportive care Justicifation of Admission Dx: Justifications for Admission: Justification of Admission Dx: Yes CHF: Hemodynamic Instability Angina: Symp at Rest LUNA MACIAS APRN May 28, 2020 14:57
--- NOTE | 2020-05-28 15:12 | RAD ---
Exam: Chest one view INDICATION: Pulmonary embolus TECHNIQUE: Frontal view of the chest Comparisons: 05/24/2020 FINDINGS: The cardiomediastinal silhouette and pulmonary vessels are within normal limits. The lung and pleural spaces are clear. IMPRESSION: No acute cardiopulmonary process. Electronically signed by: Malik Umaña MD (05/28/2020 3:10 PM) [id number]
--- NOTE | 2020-05-28 15:48 | NUR ---
SS following up with discharge planning. SS reviewed pt chart and discussed with pt RN. Pt is from detention unit at [facility], ; fax [phone]. Prior to that pt came from home with spouse. Pt has home BIPAP and walker. Pt currently on 10 liters of nasal canula and BIPAP. Pt on Eliquis now. COVID19 negative. Pt not wanting to return to [facility]. Per [facility] pt is heavy care. LTACH recommended. SS discussed with pt's RN. SS phoned and faxed referral to [facility], ; fax [phone]. SS will continue to follow for discharge planning.
[2020-05-28] MEDS ORDERED: WARFARIN 5 MG TABLET. PO ONE ×3 (16:00→17:00)
--- NOTE | 2020-05-28 16:36 | NUR ---
Call placed to DR estes to verify DVT treatment orders. Orders verified to RESTART heparin drip gtt per protocol, DC Eliquis, and start coumadin per pharmacy tonight.
[2020-05-28] MEDS ORDERED: HEPARIN 25,000UTS/250ML PREMIX 250 ML IV PRN (16:45)
[2020-05-28] MEDS ORDERED: HEPARIN for IV BOLUS 10,000 UNIT/10 ML VIAL. IV PRN ×2 (16:45)
[2020-05-28] MEDS: HYDROcodone/APAP 5/325MG 1 TAB TABLET PO PRN (19:40)
--- NOTE | 2020-05-28 20:00 | NUR ---
Offered to turn patient. Patient continues to refuse. Provided extensive education on the importance of turning every two hours and the potential outcomes due to not turning such as getting pressure ulcers, pt v/u. Pt continues to refuse to turn.
[2020-05-28] MEDS: INSULIN GLARGINE SYRINGE. SQ SCH (20:58)
[2020-05-28] MEDS: TAMSULOSIN 0.4 MG CAP.ER.24H. PO SCH (20:58)
[2020-05-28] MEDS: ATORVASTATIN CALCIUM 20 MG TABLET PO SCH (20:58)
[2020-05-29] VITALS (16 sets, daily range): BP systolic 99–144; BP diastolic 66–85
[2020-05-29 05:56] LABS: HEMATOCRIT 37.1 % (39.0-53.0); HEMOGLOBIN 12.3 g/dL (13.0-17.5); RED BLOOD COUNT 3.91 x10^6/uL (4.30-5.70); RED CELL DISTRIBUTION WIDTH 15.5 % (11.5-14.5); WHITE BLOOD COUNT 7.9 x10^3/uL (4.0-11.0)
[2020-05-29 06:58] LABS: PROTHROMBIN TIME PATIENT 18.5 SEC (11.7-14.0)
[2020-05-29] MEDS ORDERED: HEPARIN 25,000UTS/250ML PREMIX 250 ML IV PRN (07:30)
[2020-05-29] MEDS ORDERED: HEPARIN for IV BOLUS 10,000 UNIT/10 ML VIAL. IV PRN ×4 (07:30→07:31)
[2020-05-29] MEDS: CLOPIDOGREL BISULFATE 75 MG TABLET PO SCH (08:50)
[2020-05-29] MEDS: ASPIRIN ENTERIC COATED 81 MG TABLET.DR. PO SCH (08:50)
[2020-05-29] MEDS: FERROUS SULFATE 325 MG TABLET. PO SCH (08:50)
[2020-05-29] MEDS: LACTOBACILLUS RHAMNOSUS GG 1 CAPSULE. PO SCH ×2 (08:50→21:35)
[2020-05-29] MEDS: FAMOTIDINE 20 MG TABLET. PO SCH ×2 (08:50→21:35)
[2020-05-29] MEDS: FLUTICASONE 50MCG/NASAL SPRAY 16GM BOTTLE. NS SCH (08:50)
[2020-05-29] MEDS: FUROSEMIDE 40 MG TABLET. PO SCH (08:50)
[2020-05-29] MEDS: METOPROLOL SUCC 24HR ER 50 MG TAB.ER.24H. PO SCH (08:51)
[2020-05-29] MEDS: ISOSORBIDE MONONITRATE ER 30 MG TAB.ER.24H PO SCH (08:51)
[2020-05-29] MEDS: INSULIN LISPRO 300 UNITS/3 ML VIAL. SQ SCH ×4 (08:52→21:00)
--- NOTE | 2020-05-29 10:37 | PDOC ---
YAYO RAJAN SPOTTER 05/29/20 1037: CARDIO Progress Notes Date and Time Date of Service 05/29/2020 Time of Evaluation 0900 Subjective Subjective: No Chest Pain, No shortness of breath, No Palpitations Vitals Vitals Vital Signs Date Time Temp Pulse Resp B/P (MAP) Pulse Ox O2 Delivery O2 Flow Rate FiO2 05/29/20 10:00 77 22 117/70 (86) 92 Nasal Cannula 10.0 05/29/20 08:00 97.5 97.5 Weight Weight [ ] Input and Output Intake and Output Intake and Output 05/29/20 07:00 Intake Total 1697 ml Output Total 2175 ml Balance -478 ml Intake Oral 1300 ml IV Total 397 ml Output Urine Total 2175 ml Laboratory Labs Laboratory Tests Test 05/28/20 12:05 05/28/20 16:41 05/28/20 20:52 05/28/20 22:00 Glucose (Fingerstick) 190 mg/dL (70-99) 167 mg/dL (70-99) 216 mg/dL (70-99) Heparin Anti-Xa Act, Unfractionated > 1.10 IU/mL (0.30-0.70) Test 05/29/20 05:35 05/29/20 08:49 White Blood Count 7.9 x10^3/uL (4.0-11.0) Red Blood Count 3.91 x10^6/uL (4.30-5.70) Hemoglobin 12.3 g/dL (13.0-17.5) Hematocrit 37.1 % (39.0-53.0) Mean Corpuscular Volume 95 fL (79-100) Mean Corpuscular Hemoglobin 31 pg (25-35) Mean Corpuscular Hemoglobin Concent 33 g/dL (31-37) Red Cell Distribution Width 15.5 % (11.5-14.5) Platelet Count 78 x10^3/uL (140-400) Prothrombin Time 18.5 SEC (11.7-14.0) Prothromb Time International Ratio 1.6 (0.8-1.1) Activated Partial Thromboplast Time 62 SEC (24-38) Glucose (Fingerstick) 165 mg/dL (70-99) Microbiology Micro Microbiology 05/24/20 Urine Culture - Final, Complete 05/24/20 Blood Culture - Preliminary, Resulted NO GROWTH AFTER 4 DAYS Physical Exam HEENT: Neck Supple W Full Motion Chest: Symmetric LUNGS: Other (diminished ) Heart: S1S2, RRR (SR) Abdomen: Other (obese) Extremities: Other (1+ bilateral LE edema ) Neurology: alert, oriented, follow commands Assessment Assessment 1. Acute hypoxemic respiratory failure: Secondary to combination of acute on chronic diastolic heart failure and acute pulmonary embolism. SOA better. COVID test negative. 2. Chest pain: doubt ACS, noncardiac and most probably pleuritic secondary to PE 3. CAD; s/p previous PCI/stents to the LCx and 1st diagonal. s/p PCI/JOELLE to the RCA 05/17/20. Trops are normal. EKG SR without acute changes. Clinically stable 4. Acute on chronic diastolic CHF, compensated 5. SUSANA: uses bipap. New bipap now available in his house 5. Hypertension; controlled 6. Hyperlipidemia; statin 7. DM2, per IM 8. SONIYA on CKD3 9. Morbid obesity 10. BPH with gross hematuria: likely trauma from ramirez insertion, Urine now yellow with still some pinkish residual 11. Thrombocytopenia: per PCP. PLT now at 78. Recommendations 1. Anticoagulation per pulmonary in regards to PE treatment 2. Lasix therapy. Additional PRN 3. Secondary prevention 4. Continue ASA, and Plavix. Will reevaluate further in the next 24-48 hours pending PLT trend and with the utilization of anticoagulation 5. May need hematology input in regards to triple therapy and low PLT. Justicifation of Admission Dx: Justifications for Admission: Justification of Admission Dx: Yes CHF: Hemodynamic Instability Angina: Symp at Rest JACE AGUSTIN MD 05/29/20 1625: CARDIO Progress Notes Assessment Assessment Patient seen and examined He looks and feels better today. I agree with our nurse practitioners assessment and plan. Acute hypoxemic respiratory failure: Secondary to combination of acute on chronic diastolic heart failure and acute pulmonary embolism. SOA better. COVID test negative. Chest pain: doubt ACS, noncardiac and most probably pleuritic secondary to PE CAD; s/p previous PCI/stents to the LCx and 1st diagonal. s/p PCI/JOELLE to the RCA 05/17/20. Trops are normal. EKG SR without acute changes. Clinically stable Acute on chronic diastolic CHF, compensated SUSANA: on bipap. DM2, per IM SONIYA on CKD3 Thrombocytopenia: per PCP. PLT now at 78. Hematology evaluation YAYO RAJAN APRN May 29, 2020 10:37 JACE AGUSTIN MD May 29, 2020 16:25
--- NOTE | 2020-05-29 10:47 | PDOC ---
PULMONARY PROGRESS NOTES Subjective oFF BIPAP ON CANULA hematuria improved DVT Vitals Vital Signs Date Time Temp Pulse Resp B/P (MAP) Pulse Ox O2 Delivery O2 Flow Rate FiO2 05/29/20 10:00 77 22 117/70 (86) 92 Nasal Cannula 10.0 05/29/20 08:00 97.5 97.5 ROS: No Chest Pain, No Increase Cough General: Alert, No acute distress Lungs: Clear Cardiovascular: S1 Abdomen: Soft, Other (obese) Neuro Exam: Alert Extremities: Other (2+edema) Labs Laboratory Tests Test 05/27/20 11:41 05/27/20 16:46 05/27/20 20:56 05/28/20 04:25 Glucose (Fingerstick) 205 mg/dL (70-99) 189 mg/dL (70-99) 211 mg/dL (70-99) Prothrombin Time 14.4 SEC (11.7-14.0) Prothromb Time International Ratio 1.2 (0.8-1.1) Heparin Anti-Xa Act, Unfractionated 0.44 IU/mL (0.30-0.70) Sodium Level 133 mmol/L (136-145) Potassium Level 3.7 mmol/L (3.5-5.1) Chloride Level 98 mmol/L (98-107) Carbon Dioxide Level 28 mmol/L (21-32) Anion Gap 7 (6-14) Blood Urea Nitrogen 44 mg/dL (8-26) Creatinine 1.7 mg/dL (0.7-1.3) Estimated GFR (Cockcroft-Gault) 40.4 Glucose Level 189 mg/dL (70-99) Calcium Level 8.7 mg/dL (8.5-10.1) Test 05/28/20 12:05 05/28/20 16:41 05/28/20 20:52 05/28/20 22:00 Glucose (Fingerstick) 190 mg/dL (70-99) 167 mg/dL (70-99) 216 mg/dL (70-99) Heparin Anti-Xa Act, Unfractionated > 1.10 IU/mL (0.30-0.70) Test 05/29/20 05:35 05/29/20 08:49 White Blood Count 7.9 x10^3/uL (4.0-11.0) Red Blood Count 3.91 x10^6/uL (4.30-5.70) Hemoglobin 12.3 g/dL (13.0-17.5) Hematocrit 37.1 % (39.0-53.0) Mean Corpuscular Volume 95 fL (79-100) Mean Corpuscular Hemoglobin 31 pg (25-35) Mean Corpuscular Hemoglobin Concent 33 g/dL (31-37) Red Cell Distribution Width 15.5 % (11.5-14.5) Platelet Count 78 x10^3/uL (140-400) Prothrombin Time 18.5 SEC (11.7-14.0) Prothromb Time International Ratio 1.6 (0.8-1.1) Activated Partial Thromboplast Time 62 SEC (24-38) Glucose (Fingerstick) 165 mg/dL (70-99) Laboratory Tests Test 05/28/20 12:05 05/28/20 16:41 05/28/20 20:52 05/28/20 22:00 Glucose (Fingerstick) 190 mg/dL (70-99) 167 mg/dL (70-99) 216 mg/dL (70-99) Heparin Anti-Xa Act, Unfractionated > 1.10 IU/mL (0.30-0.70) Test 05/29/20 05:35 05/29/20 08:49 White Blood Count 7.9 x10^3/uL (4.0-11.0) Red Blood Count 3.91 x10^6/uL (4.30-5.70) Hemoglobin 12.3 g/dL (13.0-17.5) Hematocrit 37.1 % (39.0-53.0) Mean Corpuscular Volume 95 fL (79-100) Mean Corpuscular Hemoglobin 31 pg (25-35) Mean Corpuscular Hemoglobin Concent 33 g/dL (31-37) Red Cell Distribution Width 15.5 % (11.5-14.5) Platelet Count 78 x10^3/uL (140-400) Prothrombin Time 18.5 SEC (11.7-14.0) Prothromb Time International Ratio 1.6 (0.8-1.1) Activated Partial Thromboplast Time 62 SEC (24-38) Glucose (Fingerstick) 165 mg/dL (70-99) Medications Active Scripts Medications Dose Route/Sig Max Daily Dose Days Date Category Dose Instructions Hydrocodone-Apap 5-325 (Hydrocodone Bit/Acetaminophen) 1 Tab Tablet 1 Tab PO PRN Q6HRS PRN 5 05/18/20 Rx Amox Tr-K Clv 500-125 Mg Tab (Amoxicillin/Potassium Clav) 1 Each Tablet 1 Tab PO BID 10 05/15/20 Rx Flomax (Tamsulosin Hcl) 0.4 Mg Cap.er.24h 1 Cap PO HS 05/09/20 Reported Fluticasone Propionate Nasal [place] (Fluticasone Propionate) 16 Gm [place].susp 2 [place] NS DAILY 05/09/20 Reported Linzess (Linaclotide) 145 Mcg Capsule 145 Mcg PO 3X/WEEK 05/09/20 Reported Fexofenadine Hcl 180 Mg Tablet 1 Tab PO DAILY 05/09/20 Reported Vitamin C (Ascorbic Acid) 500 Mg Capsule.er 1,000 Mg PO DAILY 05/09/20 Reported One Daily For Men Tablet (Multivits-Minerals/Fa/Lycopene) 1 Each Tablet 1 Tab PO DAILY 30 05/09/20 Reported Iron (Ferrous Sulfate) 325 Mg Tablet 65 Mg PO DAILY 05/09/20 Reported Allopurinol 300 Mg Tablet 1 Tab PO DAILY 05/09/20 Reported Aspirin Ec (Aspirin) 81 Mg Tablet. 1 Tab PO DAILY 02/21/20 Rx Vitamin D2 (Ergocalciferol (Vitamin D2)) 50,000 Unit Capsule 50,000 Unit PO WEEKLY 05/29/16 Reported Dose given on the Take on Pantoprazole Sodium (Pantoprazole Sodium) 40 Mg Tablet. 1 Tab PO DAILY 04/30/16 Reported Gave this morning take tomorrow morning Tizanidine Hcl 4 Mg Tablet 1 Tab PO QHS 05/31/15 Reported Gave dose last night Take tonight before bedtime Vascepa (Icosapent Ethyl) 1 Gm Capsule 1 Gm PO 09/23/14 Reported Not given on this admission Take as previoulsy instructed Atorvastatin Calcium 20 Mg Tablet 1 Tab PO HS 09/23/14 Reported Gave last night Take tonight Clopidogrel (Clopidogrel Bisulfate) 75 Mg Tablet 1 Tab PO DAILY 09/23/14 Reported Gave this morning take tomorrow morning Isosorbide Mononitrate Er (Isosorbide Mononitrate) 30 Mg Tab.er.24h 60 Mg PO DAILY 09/23/14 Reported Gave this morning take tomorrow morning Repaglinide 1 Mg Tablet 1 Mg PO 09/23/14 Reported Not given on this admission Continue as previously instructed Toprol Xl (Metoprolol Succinate) 50 Mg Tab.er.24h 1 Tab PO DAILY 09/23/14 Reported Gave this morning take tomorrow morning Impression . 1. Acute hypoxic respiratory failure due to pulmonary embolism./ UNDERLYING MORBID OBESITY 2. CAD; s/p previous PCI/stents to the LCx and 1st diagonal. s/p PCI/JOELLE to the RCA 05/17/20. Trops are normal. EKG SR without acute changes. Clinically stable 3. Underlying morbid obesity with a BMI of 54. 4. Acute kidney injury versus chronic kidney disease. 5. hematuria, improved 6. DVT bilateral 7. Progressive thrombocytopenia, ? HIT Plan . 1. off BIPAP 2. Discussed with RN. Continue heparin,/ started on Coumadin. Not a candidate for Eliquis due to high BMI. hematuria has improved 3. Hematology consult /? HIT 4. venous Dopplers of lower extremities positive for DVT 5. Follow cardiology recommendations. 6. Weight loss is strongly emphasized. 7. Consider sleep study as an outpatient. 8. Neg COVID testing 9. Discussed with RN / needs PT 10. cct 30 min including complex decision making, review of records and labs WASHINGTON HORVATH MD May 29, 2020 10:47
--- NOTE | 2020-05-29 11:03 | PDOC ---
[employer] PROGRESS NOTE Chief Complaint Chief Complaint Acute thrombocytopeniawe will continue to trend, a.m. CBC, if continues to trend down will consult hematology Chest pain - likely multifactorial, almost certainly with a PE, troponins trended down, he has significant CAD. likely PE. Cardiology consult. Cont heparin GTT Acute hypoxic respiratory failure - likely 2/2 acute CHF, repeat chest x-ray yesterday showed improved pulmonary edema. Continue Lasix as needed 1 Shortness of breath - likely from above. Pulmonary embolism highly likely Bilateral DVT - non-occlusive, up beyond politeal fossa CAD - s/p previous PCI/stents to the LCx and 1st diagonal. s/p PCI/JOELLE to the RCA 05/17/ Hematuria - will continue bladder irrigation. If ramirez occludes we do not have Urology coverage and he would require transfer to another facility, he prefers Dr. Lamas, who is his primary Urologist. Acute on chronic diastolic CHF - c/o dyspnea and CXR with vascular congestion. change to PO lasix, strict i/o, ramirez placed Hypertension - controlled Hyperlipiemia - statin SONIYA on CKD - Cr 1.9. This was certainly vasomotor nephropathy SUSANA with CPAP BPH - cont meds HTN - controlled Morbid obesity with SUSANA - CPAP at home DM2 - sliding scale FEN - Cardiac PPX - heparin GTT, aspirin, Eliquis FULL CODE Dispo -transfer to cardiac unit Discussed case with RN and social professionals. Patient will require BiPAP and is pending approval for LT[facility] Total critical care time spent of 38 minutes History of Present Illness History of Present Illness Mr Drake is a 69 yo M w/ PMHx CAD s/p stents, DM2, GERD, HLD, HTN, chronic back pain, constipation, and recent diagnosis of BPH who was recently seen at this facility for RCA stenting returns from SNF today c/o worsening shortness of breath and heavy chest pressure. No leg swelling or leg pain. He was recently admitted 05/09-05/16 for UTI/prostatitis as well as sciatica, then readmitted with NSTEMI and RCA stenting on 05/17, discharged 05/22 to SNF. Report from SNF states the patient was on 3 to 4 L oxygen since his recent cardiac cath but today noted with oxygen 80% on 6 L nasal cannula. Patient states he felt a little dizzy after standing up earlier, however states this is improved. Recently had negative COVID test. CXR with bilateral interstitial infiltrate pattern. Pulmonary perfusion imaging was performed without ventilatory scan and was interpreted by radiology as high probability for PE given the bilateral perfusion defects, on chest x-ray it appears that the same pattern as the interstitial infiltrate however. Labs significant for WBC 14.8, Hb 13.7 platelets 142, NA 138, K4.1, BUN 49, CR 1.9, glucose 204, lactic acid 3.3, INR 1.2, AST 45, BNP 4329, troponin 0 0.042. EKG with QRS consistent with prior inferolateral infarct. ED had given lovenox for concern for PE. Ramirez placed and lasix given. Admitted for further care under investigation for COVID 19. 05/29/2020 Patient seen and examined bedside. Patient continues to have some chest discomfort. Shortness of breath is stable. Patient is -500 cc fluid balance. Continues to have adequate urine output. Patient is requiring BiPAP at night only. He is saturating 90% on O2 at 10 L nasal cannula. 05/28/2020 Patient seen and examined bedside. toleratin diet. Had 150 cc UOp this morning. 90% O2 saturation at 10L NC. BipAP overnight and tolerated. 05/25: Some rincon tinged urine for Ramirez. No clots noted. His breathing is improved. Changed to heparin and warfarin as he was given Lovenox in the ED and weightbase protocol will not work for this. His chest pressure is improved. Still on 12 L facemask O2. COVID 19 negative Vitals/I&O Vitals/I&O: Vital Signs Date Time Temp Pulse Resp B/P (MAP) Pulse Ox O2 Delivery O2 Flow Rate FiO2 05/29/20 10:00 77 22 117/70 (86) 92 Nasal Cannula 10.0 05/29/20 08:00 97.5 97.5 I & O 05/28/20 05/28/20 05/29/20 15:00 23:00 07:00 Intake Total 800 ml 500 ml 397 ml Output Total 1065 ml 510 ml 600 ml Balance -265 ml -10 ml -203 ml Physical Exam Physical Exam: Constitutional: no acute distress, Obese HENT: Normocephalic, atraumatic, bilateral external ears normal, oropharynx moist, no oral exudates, nose normal. Eyes: PERRLA, EOMI, conjunctiva normal, no discharge Cardiovascular:Heart rate regular rhythm, no murmur Lungs & Thorax: Bilateral breath sounds clear to auscultation Abdomen: Bowel sounds normal, soft, no tenderness, no masses, no pulsatile masses. Skin: Warm, dry, no erythema, no rash. Back: No tenderness, no CVA tenderness. Extremities: No tenderness, no cyanosis, no clubbing, ROM intact, no edema. Neurologic: Alert and oriented X 3, normal motor function, normal sensory function, no focal deficits noted. General: Alert, Oriented X3 Heart: Regular rate (SR) Lungs: Clear Abdomen: Other (obese) Extremities: No cyanosis Skin: No breakdown Labs Labs: Laboratory Tests Test 05/28/20 12:05 05/28/20 16:41 05/28/20 20:52 05/28/20 22:00 Glucose (Fingerstick) 190 mg/dL (70-99) 167 mg/dL (70-99) 216 mg/dL (70-99) Heparin Anti-Xa Act, Unfractionated > 1.10 IU/mL (0.30-0.70) Test 05/29/20 05:35 05/29/20 08:49 White Blood Count 7.9 x10^3/uL (4.0-11.0) Red Blood Count 3.91 x10^6/uL (4.30-5.70) Hemoglobin 12.3 g/dL (13.0-17.5) Hematocrit 37.1 % (39.0-53.0) Mean Corpuscular Volume 95 fL (79-100) Mean Corpuscular Hemoglobin 31 pg (25-35) Mean Corpuscular Hemoglobin Concent 33 g/dL (31-37) Red Cell Distribution Width 15.5 % (11.5-14.5) Platelet Count 78 x10^3/uL (140-400) Prothrombin Time 18.5 SEC (11.7-14.0) Prothromb Time International Ratio 1.6 (0.8-1.1) Activated Partial Thromboplast Time 62 SEC (24-38) Glucose (Fingerstick) 165 mg/dL (70-99) Assessment and Plan Assessmemt and Plan Problems Medical Problems: (1) Chest pressure Status: Acute (2) Congestive heart failure (CHF) Status: Acute Comment Review of Relevant I have reviewed the following items jm (where applicable) has been applied. Medications: Current Medications Medications (Trade) Dose Ordered Sig/Micah Route PRN Reason Start Time Stop Time Status Last Admin Dose Admin Apixaban (Eliquis) 10 mg BID PO 05/28/20 12:00 05/28/20 16:37 DC 05/28/20 12:11 Info (Anti-Coagulation Monitoring By Pharmacy) 1 each PRN DAILY PRN MC SEE COMMENTS 05/28/20 11:45 05/29/20 09:05 Heparin Sodium/ Dextrose 250 ml @ 20 mls/hr CONT PRN IV PER PROTOCOL 05/28/20 16:45 05/29/20 07:28 DC 05/28/20 23:28 Warfarin Sodium (Coumadin) 10 mg 1X WARF ONCE PO 05/28/20 17:00 05/28/20 17:01 DC 05/28/20 17:00 Heparin Sodium (Porcine) (Heparin Sodium) 1,000 unit PRN Q6HRS PRN IV FOR PTT 59 - 78 05/29/20 07:30 05/29/20 07:36 Justicifation of Admission Dx: Justifications for Admission: Justification of Admission Dx: Yes CHF: Hemodynamic Instability Angina: [facility] MARIEL OLIVEIRA MD May 29, 2020 11:03
[2020-05-29] MEDS: ONDANSETRON PF 4 MG/2 ML VIAL. IV PRN (12:10)
--- NOTE | 2020-05-29 13:05 | NUR ---
SS following up with discharge planning. SS reviewed pt chart and discussed with pt RN. Pt accepted at [facility], ; fax [phone]. SS discussed with physician. Pt currently on 10 liters nasal canula and BIPAP. Pt on Heparin drip. COVID19 negative. Possible discharge to [facility] tomorrow. SS discussed with pt and pt's spouse. SS will continue to follow for discharge planning.
[2020-05-29] MEDS: ARGATROBAN PER PHARMACY. MC PRN ×5 (13:11→17:30)
--- NOTE | 2020-05-29 13:20 | PDOC2 ---
CONSULT Date of Consult Date of Consult DATE: 05/29/20 TIME: 13:06 Reason for Consult Reason for Consult: Thrombocytopenia Referring Physician Referring Physician: Dr. Frank Identification/Chief Complaint Chief Complaint Chest pain and shortness of breath Problems: (1) Venous thromboembolism (2) Thrombocytopenia Source Source: Chart review, Patient History of Present Illness Reason for Visit: Yassine Drake is a 69-year-old male with morbid obesity, coronary artery disease who has been admitted to the hospital after presenting with chest pain. He was recently hospitalized at [facility] and received RCA stenting on 05/17/2020. He was then discharged to a care home facility on 05/22/2020. His initial evaluation in the emergency room showed mild interstitial edema. Due to elevated creatinine, perfusion scan was obtained and showed multiple moderate to large perfusion defects consistent with intermediate to high probability of thromboembolic disease. He was given a dose of Lovenox 100 mg in the emergency room and was admitted to the hospital. He was started on a continuous heparin infusion at the time of his hospitalization on 05/24/2020. He remains on 10 L oxygen to maintain oxygenation. His platelet counts were normal prior to his current hospitalization and at the time of admission. CBCs obtained since then have shown a gradually decreasing platelet count with today's being 78. Hematology has been consulted for evaluation of thrombocytopenia. Patient reports no prior history of thrombocytopenia. Review of medication administration record during his prior hospital stay shows that he had received multiple doses of prophylactic subcutaneous heparin. Past Medical History Cardiovascular: CAD, HTN, [place], Hyperlipidemia, Other Pulmonary: Asthma, Other CENTRAL NERVOUS SYSTEM: Periperal neuropathy GI: GERD, Irritable bowel disease Heme/Onc: Anemia NOS Hepatobiliary: No pertinent hx Psych: Addictions Musculoskeletal: low back pain, Osteoarthritis, Other Rheumatologic: No pertinent hx Infectious disease: No pertinent hx Renal/: UTI Endocrine: Diabetes Past Surgical History Past Surgical History: Cholecystectomy, Tonsillectomy, Other Family History Family History: Coronary Artery Disease (father) Social History No ALCOHOL: none Drugs: None Lives: Alf Current Problem List Problem List Problems Medical Problems: (1) Chest pressure Status: Acute (2) Congestive heart failure (CHF) Status: Acute Current Medications Current Medications Current Medications Nitroglycerin (Nitrostat) 0.4 mg PRN Q5MIN PRN SL CHEST PAIN Last administered on 05/24/20at 12:22; Start 05/24/20 at 12:00 Acetaminophen/ Hydrocodone Bitart (Lortab 5/325) 1 tab 1X ONCE PO Last ad ministered on 05/24/20 12:56; Start 05/24/20 at 12:45; Stop 05/24/20 at 12:46; Status DC Furosemide (Lasix) 40 mg 1X ONCE IVP Last administered on 05/24/20at 15:43; Start 05/24/20 at 13:00; Stop 05/24/20 at 13:01; Status DC Enoxaparin Sodium (Lovenox 100mg Syringe) 100 mg 1X ONCE SQ Last administered on 05/24/20 15:20; Start 05/24/20 at 14:15; Stop 05/24/20 at 14:29; Status DC Morphine Sulfate (Morphine Sulfate) 2 mg 1X ONCE IV Last administered on 05/24/20at 15:17; Start 05/24/20 at 14:30; Stop 05/24/20 at 14:37; Status DC Ondansetron HCl (Zofran) 4 mg PRN Q4HRS PRN IV NAUSEA/VOMITING Last administered on 05/29/20 12:10; Start 05/24/20 at 14:45 Acetaminophen (Tylenol) 650 mg PRN Q4HRS PRN PO TEMP OVER 100.4F OR MILD PAIN Last administered on 05/26/20 09:04; Start 05/24/20 at 14:45 Aspirin (Ecotrin) 81 mg DAILY PO Last administered on 05/29/20at 08:50; Start 05/25/20 at 09:00 Atorvastatin Calcium (Lipitor) 20 mg HS PO Last administered on 05/28/20at 20:58; Start 05/24/20 at 21:00 Clopidogrel Bisulfate (Plavix) 75 mg DAILY PO Last administered on 05/29/20 08:50; Start 05/25/20 at 09:00 Ferrous Sulfate (Feosol) 325 mg DAILY PO Last administered on 05/29/20 08:50; Start 05/25/20 at 09:00 Fluticasone Propionate (Flonase) 2 spray DAILY NS Last administered on 05/29/20 08:50; Start 05/25/20 at 09:00 Acetaminophen/ Hydrocodone Bitart (Lortab 5/325) 1 tab PRN Q6HRS PRN PO MODERATE PAIN Last administered on 05/26/20at 09:04; Start 05/24/20 at 18:15; Stop 05/26/20 at 14:35; Status DC Isosorbide Mononitrate (Imdur) 60 mg DAILY PO Last administered on 05/29/20at 08:51; Start 05/25/20 at 09:00 Pantoprazole Sodium (Protonix) 40 mg DAILYAC PO ; Start 05/25/20 at 07:30; Stop 05/25/20 at 09:30; Status DC Tamsulosin HCl (Flomax) 0.4 mg HS PO Last administered on 05/28/20at 20:58; Start 05/24/20 at 21:00 Metoprolol Succinate (Toprol Xl) 50 mg DAILY PO Last administered on 05/29/20at 08:51; Start 05/25/20 at 09:00 Insulin Human Lispro (HumaLOG) 0-9 UNITS TIDACHC SQ Last administered on 05/29/20at 12:18; Start 05/24/20 at 21:00 Dextrose (Dextrose 50%-Water Syringe) 12.5 gm PRN Q15MIN PRN IV SEE COMMENTS; Start 05/24/20 at 18:15 Furosemide (Lasix) 40 mg BID92 IVP Last administered on 05/25/20at 12:52; Start 05/25/20 at 09:00; Stop 05/25/20 at 14:01; Status DC Morphine Sulfate (Morphine Sulfate) 4 mg PRN Q4HRS PRN IV PAIN Last administered on 05/28/20at 12:56; Start 05/24/20 at 20:45 Pharmacy Consult (C.diff Med Screen By Rx) 1 each 1X ONCE MC ; Start 05/25/20 at 09:00; Stop 05/25/20 at 09:01; Status DC Famotidine (Pepcid) 20 mg BID PO Last administered on 05/29/20at 08:50; Start 05/25/20 at 21:00 Lactobacillus Rhamnosus (Culturelle) 1 cap BID PO Last administered on 05/29/20at 08:50; Start 05/25/20 at 10:00 Heparin Sodium/ Dextrose 250 ml @ 0 mls/hr CONT PRN IV PER PROTOCOL Last administered on 05/28/20at 07:06; Start 05/25/20 at 14:00; Stop 05/28/20 at 14:00; Status DC Heparin Sodium (Porcine) (Heparin Sodium) 5,650 unit PRN Q6HRS PRN IV FOR UFH LEVEL LESS THAN 0.2 Last administered on 05/26/20at 10:45; Start 05/25/20 at 14:00; Stop 05/28/20 at 14:00; Status DC Heparin Sodium (Porcine) (Heparin Sodium) 2,800 unit PRN Q6HRS PRN IV FOR UFH LEVEL 0.2 - 0.29; Start 05/25/20 at 14:00; Stop 05/28/20 at 14:00; Status DC Warfarin Sodium (Coumadin Per Pharmacy) 1 each PRN DAILY PRN MC PER PROTOCOL Last administered on 05/28/20at 10:14; Start 05/25/20 at 14:00; Stop 05/29/20 at 07:28; Status DC Furosemide (Lasix) 40 mg DAILY PO Last administered on 05/29/20at 08:50; Start 05/26/20 at 09:00 Insulin Glargine (Lantus Syringe) 10 unit QHS SQ Last administered on 05/28/20at 20:58; Start 05/26/20 at 21:00 Warfarin Sodium (Coumadin) 7.5 mg 1X WARF ONCE PO Last administered on 05/26/20at 16:02; Start 05/26/20 at 16:00; Stop 05/26/20 at 16:01; Status DC Acetaminophen/ Hydrocodone Bitart (Lortab 5/325) 1 tab PRN Q4HRS PRN PO MODERATE PAIN Last administered on 05/28/20at 19:40; Start 05/26/20 at 14:45 Warfarin Sodium (Coumadin) 8 mg 1X WARF ONCE PO Last administered on 05/27/20at 16:44; Start 05/27/20 at 16:00; Stop 05/27/20 at 16:01; Status DC Potassium Chloride/Water 100 ml @ 100 mls/hr Q1HR IV Last administered on 05/28/20at 12:00; Start 05/28/20 at 09:00; Stop 05/28/20 at 12:59; Status DC Potassium Chloride/Water 100 ml @ 50 mls/hr 1X ONCE IV ; Start 05/28/20 at 08:45; Stop 05/28/20 at 10:44; Status UNV Potassium Chloride (Klor-Con) 40 meq 1X ONCE PO Last administered on 05/28/20at 12:10; Start 05/28/20 at 08:45; Stop 05/28/20 at 08:46; Status DC Warfarin Sodium (Coumadin) 5 mg 1X WARF ONCE PO ; Start 05/28/20 at 16:00; Stop 05/28/20 at 16:01; Status Cancel Warfarin Sodium (Coumadin) 10 mg 1X WARF ONCE PO ; Start 05/28/20 at 16:00; Stop 05/28/20 at 16:01; Status DC Apixaban (Eliquis) 10 mg BID PO Last administered on 05/28/20at 12:11; Start 05/28/20 at 12:00; Stop 05/28/20 at 16:37; Status DC Apixaban (Eliquis) 5 mg BID PO ; Start 06/04/20 at 09:00; Stop 05/28/20 at 16:37; Status DC Info (Anti-Coagulation Monitoring By Pharmacy) 1 each PRN DAILY PRN MC SEE COMMENTS Last administered on 05/29/20at 09:05; Start 05/28/20 at 11:45 Heparin Sodium/ Dextrose 250 ml @ 20 mls/hr CONT PRN IV PER PROTOCOL Last administered on 05/28/20at 23:28; Start 05/28/20 at 16:45; Stop 05/29/20 at 07:28; Status DC Heparin Sodium (Porcine) (Heparin Sodium) 5,650 unit PRN Q6HRS PRN IV FOR UFH LEVEL LESS THAN 0.2; Start 05/28/20 at 16:45; Stop 05/29/20 at 07:28; Status DC Heparin Sodium (Porcine) (Heparin Sodium) 2,850 unit PRN Q6HRS PRN IV FOR UFH LEVEL 0.2 - 0.29; Start 05/28/20 at 16:45; Stop 05/29/20 at 07:28; Status DC Warfarin Sodium (Coumadin Per Pharmacy) 1 each PRN DAILY PRN MC SEE COMMENTS; Start 05/28/20 at 21:00; Status UNV Warfarin Sodium (Coumadin) 10 mg 1X WARF ONCE PO Last administered on 05/28/20at 17:00; Start 05/28/20 at 17:00; Stop 05/28/20 at 17:01; Status DC Heparin Sodium/ Dextrose 250 ml @ 0 mls/hr CONT PRN IV PER PROTOCOL; Start 05/29/20 at 07:30; Stop 05/29/20 at 12:53; Status DC Heparin Sodium (Porcine) (Heparin Sodium) 30 UNITS / KG PRN Q6HRS PRN IV FOR PTT < 40; Start 05/29/20 at 07:30; Stop 05/29/20 at 07:31; Status DC Heparin Sodium (Porcine) (Heparin Sodium) 2,000 unit PRN Q6HRS PRN IV FOR PTT 40 - 58; Start 05/29/20 at 07:30; Stop 05/29/20 at 12:53; Status DC Heparin Sodium (Porcine) (Heparin Sodium) 1,000 unit PRN Q6HRS PRN IV FOR PTT 59 - 78 Last administered on 05/29/20at 07:36; Start 05/29/20 at 07:30; Stop 05/29/20 at 12:53; Status DC Heparin Sodium (Porcine) (Heparin Sodium) 5,500 unit PRN Q6HRS PRN IV FOR PTT < 40; Start 05/29/20 at 07:31; Stop 05/29/20 at 12:53; Status DC Argatroban (Argatroban Per Pharmacy) 1 each PRN DAILY PRN MC SEE COMMENTS; Start 05/29/20 at 13:00 Active Scripts Active Hydrocodone-Apap 5-325 (Hydrocodone Bit/Acetaminophen) 1 Tab Tablet 1 Tab PO PRN Q6HRS PRN 5 Days Amox Tr-K Clv 500-125 Mg Tab (Amoxicillin/Potassium Clav) 1 Each Tablet 1 Tab PO BID 10 Days Aspirin Ec (Aspirin) 81 Mg Tablet.dr 1 Tab PO DAILY Reported Flomax (Tamsulosin Hcl) 0.4 Mg Cap.er.24h 1 Cap PO HS Fluticasone Propionate Nasal [place] (Fluticasone Propionate) 16 Gm [place].susp 2 [place] NS DAILY Linzess (Linaclotide) 145 Mcg Capsule 145 Mcg PO 3X/WEEK Fexofenadine Hcl 180 Mg Tablet 1 Tab PO DAILY Vitamin C (Ascorbic Acid) 500 Mg Capsule.er 1,000 Mg PO DAILY One Daily For Men Tablet (Multivits-Minerals/Fa/Lycopene) 1 Each Tablet 1 Tab PO DAILY 30 Days Iron (Ferrous Sulfate) 325 Mg Tablet 65 Mg PO DAILY Allopurinol 300 Mg Tablet 1 Tab PO DAILY Vitamin D2 (Ergocalciferol (Vitamin D2)) 50,000 Unit Capsule 50,000 Unit PO WEEKLY Dose given on the Take on Pantoprazole Sodium (Pantoprazole Sodium) 40 Mg Tablet.dr 1 Tab PO DAILY Gave this morning take tomorrow morning Tizanidine Hcl 4 Mg Tablet 1 Tab PO QHS Gave dose last night Take tonight before bedtime Vascepa (Icosapent Ethyl) 1 Gm Capsule 1 Gm PO Not given on this admission Take as previoulsy instructed Atorvastatin Calcium 20 Mg Tablet 1 Tab PO HS Gave last night Take tonight Clopidogrel (Clopidogrel Bisulfate) 75 Mg Tablet 1 Tab PO DAILY Gave this morning take tomorrow morning Isosorbide Mononitrate Er (Isosorbide Mononitrate) 30 Mg Tab.er.24h 60 Mg PO DAILY Gave this morning take tomorrow morning Repaglinide 1 Mg Tablet 1 Mg PO Not given on this admission Continue as previously instructed Toprol Xl (Metoprolol Succinate) 50 Mg Tab.er.24h 1 Tab PO DAILY Gave this morning take tomorrow morning Allergies Allergies: Coded Allergies: No Known Drug Allergies (Unverified , 06/11/16) ROS General: No: Chills, Night Sweats PSYCHOLOGICAL ROS: No: Anxiety, Behavioral Disorder Eyes: No Blurry vision, No Decreased vision HEENT: No: Heacaches, Visual Changes ALLERGY AND IMMUNOLOGY: No: Nasal Congestion Hematological and Lymphatic: YES: Blood Clots; No: Blood Transfusions, Brusing, Night Sweats ENDOCRINE: YES: Palpitations; No: Unexpected Weight Changes Breast: No New/Changing Breast Lumps Respiratory: YES: Cough, Pleuritic Pain (Patient describes chest pain that is central, sharp and worsened with cough.), Shortness of breath; No: Hemoptysis Cardiovascular: yes Chest Pain, yes Palpitations, yes Edema Gastrointestinal: No Nausea, No Vomiting, No Abdominal Pain Genitourinary: No Dysuria, No Frequency Musculoskeletal: No Gait Disturbance, No Joint Pain Neurological: No Behavorial Changes, No Confusion Skin: No Dry Skin, No Eczema Physical Exam General: Alert, Oriented X3 HEENT: Atraumatic Lungs: Clear to auscultation Heart: No murmurs, Other (Tachycardia) Abdomen: Normal bowel sounds, Soft Extremities: Other (Bilateral lower extremity pitting edema) Skin: No rashes Neuro: Normal speech, Strength at 5/5 X4 ext MUSCULOSKELETAL: No joint tenderness, No deformity Vitals VITALS Vital Signs Date Time Temp Pulse Resp B/P (MAP) Pulse Ox O2 Delivery O2 Flow Rate FiO2 05/29/20 12:00 96.6 73 18 118/71 (87) 95 Nasal Cannula 10.0 96.6 Labs Labs Laboratory Tests Test 05/27/20 16:46 05/27/20 20:56 05/28/20 04:25 05/28/20 12:05 Glucose (Fingerstick) 189 mg/dL (70-99) 211 mg/dL (70-99) 190 mg/dL (70-99) Prothrombin Time 14.4 SEC (11.7-14.0) Prothromb Time International Ratio 1.2 (0.8-1.1) Heparin Anti-Xa Act, Unfractionated 0.44 IU/mL (0.30-0.70) Sodium Level 133 mmol/L (136-145) Potassium Level 3.7 mmol/L (3.5-5.1) Chloride Level 98 mmol/L (98-107) Carbon Dioxide Level 28 mmol/L (21-32) Anion Gap 7 (6-14) Blood Urea Nitrogen 44 mg/dL (8-26) Creatinine 1.7 mg/dL (0.7-1.3) Estimated GFR (Cockcroft-Gault) 40.4 Glucose Level 189 mg/dL (70-99) Calcium Level 8.7 mg/dL (8.5-10.1) Test 05/28/20 16:41 05/28/20 20:52 05/28/20 22:00 05/29/20 05:35 Glucose (Fingerstick) 167 mg/dL (70-99) 216 mg/dL (70-99) Heparin Anti-Xa Act, Unfractionated > 1.10 IU/mL (0.30-0.70) White Blood Count 7.9 x10^3/uL (4.0-11.0) Red Blood Count 3.91 x10^6/uL (4.30-5.70) Hemoglobin 12.3 g/dL (13.0-17.5) Hematocrit 37.1 % (39.0-53.0) Mean Corpuscular Volume 95 fL (79-100) Mean Corpuscular Hemoglobin 31 pg (25-35) Mean Corpuscular Hemoglobin Concent 33 g/dL (31-37) Red Cell Distribution Width 15.5 % (11.5-14.5) Platelet Count 78 x10^3/uL (140-400) Prothrombin Time 18.5 SEC (11.7-14.0) Prothromb Time International Ratio 1.6 (0.8-1.1) Activated Partial Thromboplast Time 62 SEC (24-38) Test 05/29/20 08:49 05/29/20 12:05 Glucose (Fingerstick) 165 mg/dL (70-99) 207 mg/dL (70-99) Laboratory Tests Test 05/28/20 16:41 05/28/20 20:52 05/28/20 22:00 05/29/20 05:35 Glucose (Fingerstick) 167 mg/dL (70-99) 216 mg/dL (70-99) Heparin Anti-Xa Act, Unfractionated > 1.10 IU/mL (0.30-0.70) White Blood Count 7.9 x10^3/uL (4.0-11.0) Red Blood Count 3.91 x10^6/uL (4.30-5.70) Hemoglobin 12.3 g/dL (13.0-17.5) Hematocrit 37.1 % (39.0-53.0) Mean Corpuscular Volume 95 fL (79-100) Mean Corpuscular Hemoglobin 31 pg (25-35) Mean Corpuscular Hemoglobin Concent 33 g/dL (31-37) Red Cell Distribution Width 15.5 % (11.5-14.5) Platelet Count 78 x10^3/uL (140-400) Prothrombin Time 18.5 SEC (11.7-14.0) Prothromb Time International Ratio 1.6 (0.8-1.1) Activated Partial Thromboplast Time 62 SEC (24-38) Test 05/29/20 08:49 05/29/20 12:05 Glucose (Fingerstick) 165 mg/dL (70-99) 207 mg/dL (70-99) Images Images Reviewed results of chest x-ray, VQ scan and lower extremity venous Doppler Assessment/Plan Assessment/Plan Thrombocytopenia Acute hypoxic respiratory failure Pulmonary embolism Bilateral lower extremity DVT Coronary artery disease status post PCI on 05/17/2020 Type 2 diabetes Morbid obesity Recommendations: -I reviewed the patient's presenting history, radiology and records from prior hospitalization at [facility] -Given presentation with VTE, prior exposure to heparin, drop in platelet count after reintroduction of heparin and lack of further clear etiology for thrombocytopenia, would suspect heparin-induced thrombocytopenia -4 T score was 6, indicating high probability of heparin-induced thrombocytopenia -We will check HIT antibody and peripheral smear -Recommend discontinuation of heparin infusion and all heparin containing therapies at this time while we await this testing -Placed orders for initiation of argatroban infusion and communicated with DAVONTE Peña Thank you for the consult Gadiel Ignacio MD Medical Oncology/Hematology Ph: [phone] AIXA IGNACIO MD May 29, 2020 13:20
[2020-05-29 13:59] LABS: BASO # 0.1 x10^3/uL (0.0-0.2); BASO % 1 % (0-3); EOS # 0.1 x10^3/uL (0.0-0.7); EOS % 1 % (0-3); HEMATOCRIT 37.6 % (39.0-53.0); HEMOGLOBIN 12.7 g/dL (13.0-17.5); LYMPH % 10 % (24-48); MEAN CORPUSCULAR HEMOGLOBIN 32 pg (25-35); MEAN CORPUSCULAR HGB CONC 34 g/dL (31-37); MEAN CORPUSCULAR VOLUME 94 fL (79-100); MONO # 0.7 x10^3/uL (0.0-1.1); MONO % 7 % (0-9); NEUT # 7.6 x10^3/uL (1.8-7.7); NEUT % 80 % (31-73); PLATELET COUNT 85 x10^3/uL (140-400); WHITE BLOOD COUNT 9.4 x10^3/uL (4.0-11.0)
[2020-05-29] MEDS: ARGATROBAN 50 MG in IV NORMAL SALINE 50ML 50 ML IV PRN ×4 (14:12→22:21)
[2020-05-29] MEDS: TAMSULOSIN 0.4 MG CAP.ER.24H. PO SCH (21:35)
[2020-05-29] MEDS: ATORVASTATIN CALCIUM 20 MG TABLET PO SCH (21:35)
[2020-05-29] MEDS: HYDROcodone/APAP 5/325MG 1 TAB TABLET PO PRN (21:36)
[2020-05-29] MEDS: INSULIN GLARGINE SYRINGE. SQ SCH (21:38)
[2020-05-30] MEDS: ARGATROBAN 50 MG in IV NORMAL SALINE 50ML 50 ML IV PRN ×5 (02:29→22:46)
[2020-05-30 03:00] VITALS: BP 121/75
[2020-05-30 06:02] LABS: HEMATOCRIT 38.4 % (39.0-53.0); HEMOGLOBIN 12.7 g/dL (13.0-17.5); RED BLOOD COUNT 4.04 x10^6/uL (4.30-5.70); RED CELL DISTRIBUTION WIDTH 15.7 % (11.5-14.5); WHITE BLOOD COUNT 8.4 x10^3/uL (4.0-11.0)
[2020-05-30 07:00] VITALS: BP 135/71
[2020-05-30] MEDS: CLOPIDOGREL BISULFATE 75 MG TABLET PO SCH (08:38)
[2020-05-30] MEDS: FUROSEMIDE 40 MG TABLET. PO SCH (08:38)
[2020-05-30] MEDS: METOPROLOL SUCC 24HR ER 50 MG TAB.ER.24H. PO SCH (08:38)
[2020-05-30] MEDS: FERROUS SULFATE 325 MG TABLET. PO SCH (08:38)
[2020-05-30] MEDS: ISOSORBIDE MONONITRATE ER 30 MG TAB.ER.24H PO SCH (08:39)
[2020-05-30] MEDS: FLUTICASONE 50MCG/NASAL SPRAY 16GM BOTTLE. NS SCH (08:39)
[2020-05-30] MEDS: ASPIRIN ENTERIC COATED 81 MG TABLET.DR. PO SCH (08:39)
[2020-05-30] MEDS: LACTOBACILLUS RHAMNOSUS GG 1 CAPSULE. PO SCH ×2 (08:39→19:53)
[2020-05-30] MEDS: FAMOTIDINE 20 MG TABLET. PO SCH ×2 (08:39→19:53)
[2020-05-30] MEDS: ACETAMINOPHEN 325 MG TABLET. PO PRN (08:41)
[2020-05-30] MEDS: INSULIN LISPRO 300 UNITS/3 ML VIAL. SQ SCH ×4 (08:52→21:00)
--- NOTE | 2020-05-30 10:14 | NUR ---
SS following up with discharge planning. SS reviewed pt chart and discussed with pt RN. Pt is currently on BIPAP and high flow nasal canula oxygen. PT/OT recommended LTACH. Pt accepted at [facility], ; fax [phone]. Discharge orders received. SS phoned and faxed clinical updates and discharge orders to [facility]. SS currently awaiting bed availability. SS will continue to follow for discharge planning.
--- NOTE | 2020-05-30 10:28 | PDOC ---
CARDIO Progress Notes Date and Time Date of Service 05/30/20 Time of Evaluation 1020 Subjective Subjective: No Chest Pain, No Palpitations, Other (SOA with transfer to chair this am) Vitals Vitals Vital Signs Date Time Temp Pulse Resp B/P (MAP) Pulse Ox O2 Delivery O2 Flow Rate FiO2 05/30/20 08:39 63 135/71 05/30/20 08:05 93 BiPAP/CPAP 05/30/20 08:00 10.0 05/30/20 07:00 20 05/30/20 03:00 97.3 97.3 Weight Weight [ ] Input and Output Intake and Output Intake and Output 05/30/20 07:00 Intake Total 2624 ml Output Total 2430 ml Balance 194 ml Intake Oral 2258 ml IV Total 366 ml Output Urine Total 2430 ml # Bowel Movements 1 Laboratory Labs Laboratory Tests Test 05/29/20 12:05 05/29/20 13:40 05/29/20 16:10 05/29/20 17:42 Glucose (Fingerstick) 207 mg/dL (70-99) 158 mg/dL (70-99) White Blood Count 9.4 x10^3/uL (4.0-11.0) Red Blood Count 4.00 x10^6/uL (4.30-5.70) Hemoglobin 12.7 g/dL (13.0-17.5) Hematocrit 37.6 % (39.0-53.0) Mean Corpuscular Volume 94 fL (79-100) Mean Corpuscular Hemoglobin 32 pg (25-35) Mean Corpuscular Hemoglobin Concent 34 g/dL (31-37) Red Cell Distribution Width 15.0 % (11.5-14.5) Platelet Count 85 x10^3/uL (140-400) Neutrophils (%) (Auto) 80 % (31-73) Lymphocytes (%) (Auto) 10 % (24-48) Monocytes (%) (Auto) 7 % (0-9) Eosinophils (%) (Auto) 1 % (0-3) Basophils (%) (Auto) 1 % (0-3) Neutrophils # (Auto) 7.6 x10^3/uL (1.8-7.7) Lymphocytes # (Auto) 1.0 x10^3/uL (1.0-4.8) Monocytes # (Auto) 0.7 x10^3/uL (0.0-1.1) Eosinophils # (Auto) 0.1 x10^3/uL (0.0-0.7) Basophils # (Auto) 0.1 x10^3/uL (0.0-0.2) Vitamin B12 Level 1963 pg/mL (247-911) Activated Partial Thromboplast Time 107 SEC (24-38) Test 05/29/20 21:29 05/29/20 22:25 05/30/20 05:40 05/30/20 07:42 Glucose (Fingerstick) 172 mg/dL (70-99) 160 mg/dL (70-99) Activated Partial Thromboplast Time 107 SEC (24-38) 88 SEC (24-38) White Blood Count 8.4 x10^3/uL (4.0-11.0) Red Blood Count 4.04 x10^6/uL (4.30-5.70) Hemoglobin 12.7 g/dL (13.0-17.5) Hematocrit 38.4 % (39.0-53.0) Mean Corpuscular Volume 95 fL (79-100) Mean Corpuscular Hemoglobin 31 pg (25-35) Mean Corpuscular Hemoglobin Concent 33 g/dL (31-37) Red Cell Distribution Width 15.7 % (11.5-14.5) Platelet Count 94 x10^3/uL (140-400) Microbiology Micro Microbiology 05/24/20 Urine Culture - Final, Complete 05/24/20 Blood Culture - Final, Complete NO GROWTH AFTER 5 DAYS Physical Exam HEENT: Neck Supple W Full Motion Chest: Symmetric LUNGS: Other (diminished ) Heart: S1S2, RRR (SR) Abdomen: Other (obese) Extremities: Other (1+ bilateral LE edema ) Neurology: alert, oriented, follow commands Assessment Assessment 1. Acute hypoxemic respiratory failure: Secondary to combination of acute on chronic diastolic heart failure and acute pulmonary embolism. COVID test negative. 2. Chest pain: doubt ACS, noncardiac and most probably pleuritic secondary to PE 3. CAD; s/p previous PCI/stents to the LCx and 1st diagonal. s/p PCI/JOELLE to the RCA 05/17/20. Trops are normal. EKG SR without acute changes. Clinically stable 4. Acute on chronic diastolic CHF, better compensated with diuresis 5. SUSANA: uses bipap 5. Hypertension; controlled 6. Hyperlipiemia; statin 7. DM2, per IM 8. SONIYA on CKD3 9. Morbid obesity 10. BPH with gross hematuria: likely trauma from ramirez insertion. improved 11. Thrombocytopenia: per PCP.Concerns for HIT. Heprain discontinued. PLT now at 94. Recommendations Anticoagulation per pulmonary/hemonc in regards to PE treatment Lasix therapy. Secondary prevention Continue ASA and Plavix for now. Monitor PLT closely as patient is on triple therapy given concerns for PE and recent PCI/stent placement. May discontinue ASA after 30 days and continue Plavix and OAC. Recommendations Lasix therapy. Additional PRN Secondary prevention Supportive care Justicifation of Admission Dx: Justifications for Admission: Justification of Admission Dx: Yes CHF: Hemodynamic Instability Angina: Symp at Rest LUNA MACIAS APRN May 30, 2020 10:28
[2020-05-30 10:42] LABS: CALCIUM 8.8 mg/dL (8.5-10.1); CREATININE 1.5 mg/dL (0.7-1.3); GFR 46.7; MAGNESIUM 2.5 mg/dL (1.8-2.4); POTASSIUM 3.6 mmol/L (3.5-5.1)
[2020-05-30 10:51] VITALS: BP 107/52
--- NOTE | 2020-05-30 11:39 | SNU/HH DC ---
DISCHARGE ORDERS DISCHARGE INFORMATION: FINAL DIAGNOSIS Problems Medical Problems: (1) Chest pressure Status: Acute (2) Congestive heart failure (CHF) Status: Acute CONDITION ON DISCHARGE: Stable CODE STATUS: Code Status: Full SNF: SNF STAY <30 DAYS: Yes POST DISCHARGE ORDERS: ACTIVITY ORDERS: Activity as tolerated WEIGHT BEARING STATUS: As tolerated DIET AFTER DISCHARGE: ADA WOUND/INCISION CARE: Do not change dressing CHECKS AFTER DISCHARGE: CHECKS AFTER DISCHARGE: Check blood press - daily, Check blood sugar, ac/hs TREATMENT/EQUIPMENT ORDERS: ADAPTIVE EQUIPMENT NEEDED: None Physical Therapy For: Evalulation/Treatment Occupational Therapy For: Evaluation/Treatment DISCHARGE MEDICATIONS: Home Meds Active Scripts Hydrocodone Bit/Acetaminophen (HYDROCODONE-APAP 5-325 ) 1 Tab Tablet, 1 TAB PO PRN Q6HRS PRN for PAIN for 5 Days, #20 TAB 0 Refills Prov:KATH CABALLERO MD 05/18/20 Amoxicillin/Potassium Clav (AMOX TR-K CLV 500-125 MG TAB) 1 Each Tablet, 1 TAB PO BID for uti for 10 Days, #20 TAB Prov:KATH CABALLERO MD 05/15/20 Aspirin (ASPIRIN EC) 81 Mg Tablet.dr, 1 TAB PO DAILY for CAD, #30 TAB 3 Refills Prov:YAYO RAJAN APRN 02/21/20 Reported Medications Tamsulosin Hcl (FLOMAX) 0.4 Mg Cap.er.24h, 1 CAP PO HS for BPH, #30 CAP 11 Refills 05/09/20 Fluticasone Propionate (FLUTICASONE PROPIONATE NASAL SPRAY) 16 Gm [place].susp, 2 SPRAY NS DAILY for allergies, #1 INHALER 11 Refills 05/09/20 Linaclotide (LINZESS) 145 Mcg Capsule, 145 MCG PO 3X/WEEK for IRRITABLE BOWEL, CAP 05/09/20 Fexofenadine Hcl (FEXOFENADINE HCL) 180 Mg Tablet, 1 TAB PO DAILY for allergies, #30 TAB 5 Refills 05/09/20 Ascorbic Acid (VITAMIN C) 500 Mg Capsule.er, 1000 MG PO DAILY for supplement, CAP.SR 05/09/20 Multivits-Minerals/Fa/Lycopene (ONE DAILY FOR MEN TABLET) 1 Each Tablet, 1 TAB PO DAILY for supplement for 30 Days, #30 TAB 0 Refills 05/09/20 Ferrous Sulfate (IRON) 325 Mg Tablet, 65 MG PO DAILY for anemia, TAB 05/09/20 Allopurinol (ALLOPURINOL) 300 Mg Tablet, 1 TAB PO DAILY for Hyperunicemia, #30 TAB 5 Refills 05/09/20 Ergocalciferol (Vitamin D2) (VITAMIN D2) 50,000 Unit Capsule, 47733 UNIT PO WEEKLY Dose given on the Take on 05/29/16 Pantoprazole Sodium (PANTOPRAZOLE SODIUM ) 40 Mg Tablet.dr, 1 TAB PO DAILY, #30 TAB 3 Refills Gave this morning take tomorrow morning 04/30/16 Tizanidine Hcl (TIZANIDINE HCL) 4 Mg Tablet, 1 TAB PO QHS, #30 TAB Gave dose last night Take tonight before bedtime 05/31/15 Icosapent Ethyl (VASCEPA) 1 Gm Capsule, 1 GM PO Not given on this admission Take as previoulsy instructed 09/23/14 Atorvastatin Calcium (ATORVASTATIN CALCIUM) 20 Mg Tablet, 1 TAB PO HS for HLD, #30 TAB 5 Refills Gave last night Take tonight 09/23/14 Clopidogrel Bisulfate (CLOPIDOGREL) 75 Mg Tablet, 1 TAB PO DAILY, #90 TAB 1 Refill Gave this morning take tomorrow morning 09/23/14 Isosorbide Mononitrate (ISOSORBIDE MONONITRATE ER) 30 Mg Tab.er.24h, 60 MG PO DAILY, #30 TAB 5 Refills Gave this morning take tomorrow morning 09/23/14 Repaglinide (REPAGLINIDE) 1 Mg Tablet, 1 MG PO Not given on this admission Continue as previously instructed 09/23/14 Metoprolol Succinate (TOPROL XL) 50 Mg Tab.er.24h, 1 TAB PO DAILY, #30 TAB 5 Refills Gave this morning take tomorrow morning 09/23/14 MARIEL OLIVEIRA MD May 30, 2020 11:38
--- NOTE | 2020-05-30 11:50 | PDOC ---
PULMONARY PROGRESS NOTES Subjective on BIPAP ,40%FIO2 ON CANULA hematuria improved DVT / PE Suspected HIT Vitals Vital Signs Date Time Temp Pulse Resp B/P (MAP) Pulse Ox O2 Delivery O2 Flow Rate FiO2 05/30/20 10:51 96.8 67 19 107/52 (70) 96 BiPAP/CPAP 96.8 05/30/20 08:00 10.0 ROS: No Chest Pain, No Increase Cough General: Alert, No acute distress Lungs: Clear Cardiovascular: S1 Abdomen: Soft, Other (obese) Neuro Exam: Alert Extremities: Other (2+edema) Labs Laboratory Tests Test 05/28/20 12:05 05/28/20 16:41 05/28/20 20:52 05/28/20 22:00 Glucose (Fingerstick) 190 mg/dL (70-99) 167 mg/dL (70-99) 216 mg/dL (70-99) Heparin Anti-Xa Act, Unfractionated > 1.10 IU/mL (0.30-0.70) Test 05/29/20 05:35 05/29/20 08:49 05/29/20 12:05 05/29/20 13:40 White Blood Count 7.9 x10^3/uL (4.0-11.0) 9.4 x10^3/uL (4.0-11.0) Red Blood Count 3.91 x10^6/uL (4.30-5.70) 4.00 x10^6/uL (4.30-5.70) Hemoglobin 12.3 g/dL (13.0-17.5) 12.7 g/dL (13.0-17.5) Hematocrit 37.1 % (39.0-53.0) 37.6 % (39.0-53.0) Mean Corpuscular Volume 95 fL (79-100) 94 fL (79-100) Mean Corpuscular Hemoglobin 31 pg (25-35) 32 pg (25-35) Mean Corpuscular Hemoglobin Concent 33 g/dL (31-37) 34 g/dL (31-37) Red Cell Distribution Width 15.5 % (11.5-14.5) 15.0 % (11.5-14.5) Platelet Count 78 x10^3/uL (140-400) 85 x10^3/uL (140-400) Prothrombin Time 18.5 SEC (11.7-14.0) Prothromb Time International Ratio 1.6 (0.8-1.1) Activated Partial Thromboplast Time 62 SEC (24-38) Glucose (Fingerstick) 165 mg/dL (70-99) 207 mg/dL (70-99) Neutrophils (%) (Auto) 80 % (31-73) Lymphocytes (%) (Auto) 10 % (24-48) Monocytes (%) (Auto) 7 % (0-9) Eosinophils (%) (Auto) 1 % (0-3) Basophils (%) (Auto) 1 % (0-3) Neutrophils # (Auto) 7.6 x10^3/uL (1.8-7.7) Lymphocytes # (Auto) 1.0 x10^3/uL (1.0-4.8) Monocytes # (Auto) 0.7 x10^3/uL (0.0-1.1) Eosinophils # (Auto) 0.1 x10^3/uL (0.0-0.7) Basophils # (Auto) 0.1 x10^3/uL (0.0-0.2) Vitamin B12 Level 1963 pg/mL (247-911) Test 05/29/20 16:10 05/29/20 17:42 05/29/20 21:29 05/29/20 22:25 Activated Partial Thromboplast Time 107 SEC (24-38) 107 SEC (24-38) Glucose (Fingerstick) 158 mg/dL (70-99) 172 mg/dL (70-99) Test 05/30/20 05:40 05/30/20 07:42 White Blood Count 8.4 x10^3/uL (4.0-11.0) Red Blood Count 4.04 x10^6/uL (4.30-5.70) Hemoglobin 12.7 g/dL (13.0-17.5) Hematocrit 38.4 % (39.0-53.0) Mean Corpuscular Volume 95 fL (79-100) Mean Corpuscular Hemoglobin 31 pg (25-35) Mean Corpuscular Hemoglobin Concent 33 g/dL (31-37) Red Cell Distribution Width 15.7 % (11.5-14.5) Platelet Count 94 x10^3/uL (140-400) Activated Partial Thromboplast Time 88 SEC (24-38) Sodium Level 133 mmol/L (136-145) Potassium Level 3.6 mmol/L (3.5-5.1) Chloride Level 101 mmol/L (98-107) Carbon Dioxide Level 22 mmol/L (21-32) Anion Gap 10 (6-14) Blood Urea Nitrogen 42 mg/dL (8-26) Creatinine 1.5 mg/dL (0.7-1.3) Estimated GFR (Cockcroft-Gault) 46.7 Glucose Level 155 mg/dL (70-99) Calcium Level 8.8 mg/dL (8.5-10.1) Magnesium Level 2.5 mg/dL (1.8-2.4) Glucose (Fingerstick) 160 mg/dL (70-99) Laboratory Tests Test 05/29/20 12:05 05/29/20 13:40 05/29/20 16:10 05/29/20 17:42 Glucose (Fingerstick) 207 mg/dL (70-99) 158 mg/dL (70-99) White Blood Count 9.4 x10^3/uL (4.0-11.0) Red Blood Count 4.00 x10^6/uL (4.30-5.70) Hemoglobin 12.7 g/dL (13.0-17.5) Hematocrit 37.6 % (39.0-53.0) Mean Corpuscular Volume 94 fL (79-100) Mean Corpuscular Hemoglobin 32 pg (25-35) Mean Corpuscular Hemoglobin Concent 34 g/dL (31-37) Red Cell Distribution Width 15.0 % (11.5-14.5) Platelet Count 85 x10^3/uL (140-400) Neutrophils (%) (Auto) 80 % (31-73) Lymphocytes (%) (Auto) 10 % (24-48) Monocytes (%) (Auto) 7 % (0-9) Eosinophils (%) (Auto) 1 % (0-3) Basophils (%) (Auto) 1 % (0-3) Neutrophils # (Auto) 7.6 x10^3/uL (1.8-7.7) Lymphocytes # (Auto) 1.0 x10^3/uL (1.0-4.8) Monocytes # (Auto) 0.7 x10^3/uL (0.0-1.1) Eosinophils # (Auto) 0.1 x10^3/uL (0.0-0.7) Basophils # (Auto) 0.1 x10^3/uL (0.0-0.2) Vitamin B12 Level 1963 pg/mL (247-911) Activated Partial Thromboplast Time 107 SEC (24-38) Test 05/29/20 21:29 05/29/20 22:25 05/30/20 05:40 05/30/20 07:42 Glucose (Fingerstick) 172 mg/dL (70-99) 160 mg/dL (70-99) Activated Partial Thromboplast Time 107 SEC (24-38) 88 SEC (24-38) White Blood Count 8.4 x10^3/uL (4.0-11.0) Red Blood Count 4.04 x10^6/uL (4.30-5.70) Hemoglobin 12.7 g/dL (13.0-17.5) Hematocrit 38.4 % (39.0-53.0) Mean Corpuscular Volume 95 fL (79-100) Mean Corpuscular Hemoglobin 31 pg (25-35) Mean Corpuscular Hemoglobin Concent 33 g/dL (31-37) Red Cell Distribution Width 15.7 % (11.5-14.5) Platelet Count 94 x10^3/uL (140-400) Sodium Level 133 mmol/L (136-145) Potassium Level 3.6 mmol/L (3.5-5.1) Chloride Level 101 mmol/L (98-107) Carbon Dioxide Level 22 mmol/L (21-32) Anion Gap 10 (6-14) Blood Urea Nitrogen 42 mg/dL (8-26) Creatinine 1.5 mg/dL (0.7-1.3) Estimated GFR (Cockcroft-Gault) 46.7 Glucose Level 155 mg/dL (70-99) Calcium Level 8.8 mg/dL (8.5-10.1) Magnesium Level 2.5 mg/dL (1.8-2.4) Medications Active Scripts Medications Dose Route/Sig Max Daily Dose Days Date Category Dose Instructions Hydrocodone-Apap 5-325 (Hydrocodone Bit/Acetaminophen) 1 Tab Tablet 1 Tab PO PRN Q6HRS PRN 5 05/18/20 Rx Amox Tr-K Clv 500-125 Mg Tab (Amoxicillin/Potassium Clav) 1 Each Tablet 1 Tab PO BID 10 05/15/20 Rx Flomax (Tamsulosin Hcl) 0.4 Mg Cap.er.24h 1 Cap PO HS 05/09/20 Reported Fluticasone Propionate Nasal [place] (Fluticasone Propionate) 16 Gm [place].susp 2 [place] NS DAILY 05/09/20 Reported Linzess (Linaclotide) 145 Mcg Capsule 145 Mcg PO 3X/WEEK 05/09/20 Reported Fexofenadine Hcl 180 Mg Tablet 1 Tab PO DAILY 05/09/20 Reported Vitamin C (Ascorbic Acid) 500 Mg Capsule.er 1,000 Mg PO DAILY 05/09/20 Reported One Daily For Men Tablet (Multivits-Minerals/Fa/Lycopene) 1 Each Tablet 1 Tab PO DAILY 30 05/09/20 Reported Iron (Ferrous Sulfate) 325 Mg Tablet 65 Mg PO DAILY 05/09/20 Reported Allopurinol 300 Mg Tablet 1 Tab PO DAILY 05/09/20 Reported Aspirin Ec (Aspirin) 81 Mg Tablet.dr 1 Tab PO DAILY 02/21/20 Rx Vitamin D2 (Ergocalciferol (Vitamin D2)) 50,000 Unit Capsule 50,000 Unit PO WEEKLY 05/29/16 Reported Dose given on the Take on Pantoprazole Sodium (Pantoprazole Sodium) 40 Mg Tablet.dr 1 Tab PO DAILY 04/30/16 Reported Gave this morning take tomorrow morning Tizanidine Hcl 4 Mg Tablet 1 Tab PO QHS 05/31/15 Reported Gave dose last night Take tonight before bedtime Vascepa (Icosapent Ethyl) 1 Gm Capsule 1 Gm PO 09/23/14 Reported Not given on this admission Take as previoulsy instructed Atorvastatin Calcium 20 Mg Tablet 1 Tab PO HS 09/23/14 Reported Gave last night Take tonight Clopidogrel (Clopidogrel Bisulfate) 75 Mg Tablet 1 Tab PO DAILY 09/23/14 Reported Gave this morning take tomorrow morning Isosorbide Mononitrate Er (Isosorbide Mononitrate) 30 Mg Tab.er.24h 60 Mg PO DAILY 09/23/14 Reported Gave this morning take tomorrow morning Repaglinide 1 Mg Tablet 1 Mg PO 09/23/14 Reported Not given on this admission Continue as previously instructed Toprol Xl (Metoprolol Succinate) 50 Mg Tab.er.24h 1 Tab PO DAILY 09/23/14 Reported Gave this morning take tomorrow morning Impression . 1. Acute hypoxic respiratory failure due to pulmonary embolism./ UNDERLYING MORBID OBESITY 2. CAD; s/p previous PCI/stents to the LCx and 1st diagonal. s/p PCI/JOELLE to the RCA 05/17/20. Trops are normal. EKG SR without acute changes. Clinically stable 3. Underlying morbid obesity with a BMI of 54. 4. Acute kidney injury versus chronic kidney disease. 5. hematuria, improved 6. DVT bilateral 7. Progressive thrombocytopenia SINCE ON HEPARIN. lIKELY HIT. STARTED ON AR GATROBAN Plan . 1. PRN BIPAP 2. Discussed with RN. 3. Hematology rec. Suspected HIT. started on Argatroban, off heparin 4. venous Dopplers of lower extremities positive for DVT 5. Follow cardiology recommendations. 6. Weight loss is strongly emphasized. 7. Consider sleep study as an outpatient. 8. Neg COVID testing 9. Discussed with RN / needs PT/ OT 10. d/w WASHINGTON HORVATH MD May 30, 2020 11:50
--- NOTE | 2020-05-30 13:20 | NUR ---
SS following up with discharge planning. SS received notification from [facility] stating that they will not have a bed until tomorrow, 05/31/2020. Pt and pt's RN notified. SS will continue to follow for discharge planning.
[2020-05-30] MEDS: ARGATROBAN PER PHARMACY. MC PRN (13:24)
--- NOTE | 2020-05-30 13:43 | PDOC3 ---
[facility]-Discharge Summary Date of Admission: Date of Admission: May 24, 2020 Date of Discharge: Date of Discharge: May 30, 2020 Admission Diagnosis: Admitting Diagnosis: Chest pain - likely multifactorial Acute hypoxic respiratory failure Shortness of breath CAD Acute on chronic diastolic CHF Hypertension; controlled Hyperlipiemia SONIYA on CKD SUSANA with CPAP BPH - cont meds HTN - controlled Morbid obesity with SUSANA: CPAP at home DM2 - sliding scale Discharge Diagnosis: Discharge Diagnosis: Heparin-induced thrombocytopenia Acute hypoxic respiratory failure secondary to acute CHF Bilateral DVT CAD - s/p previous PCI/stents to the LCx and 1st diagonal Hematuria Acute on chronic diastolic CHF Hypertension Hyperlipiemia SONIYA on CKD - Cr 1.9. This was certainly vasomotor nephropathy SUSANA with CPAP BPH HTN Morbid obesity with SUSANA DM2 Consults: Consults: Cardiology Pulmonology Hematology Hospital Course: Hospital Course: 69 yo M w/ PMHx CAD s/p stents, DM2, GERD, HLD, HTN, chronic back pain, constipation, and recent diagnosis of BPH who was recently seen at this facility for RCA stenting returns from SNF today c/o worsening shortness of breath and heavy chest pressure. No leg swelling or leg pain. He was recently admitted 05/09-05/16 for UTI/prostatitis as well as sciatica, then readmitted with NSTEMI and RCA stenting on 05/17, discharged 05/22 to SNF. Report from SNF states the patient was on 3 to 4 L oxygen since his recent cardiac cath but today noted with oxygen 80% on 6 L nasal cannula. Patient states he felt a little dizzy after standing up earlier, however states this is improved. Recently had negative COVID test. CXR with bilateral interstitial infiltrate pattern. Pulmonary perfusion imaging was performed without ventilatory scan and was interpreted by radiology as high probability for PE given the bilateral perfusion defects, on chest x-ray it appears that the same pattern as the interstitial infiltrate however. Labs significant for WBC 14.8, Hb 13.7 platelets 142, NA 138, K4.1, BUN 49, CR 1.9, glucose 204, lactic acid 3.3, INR 1.2, AST 45, BNP 4329, troponin 0 0.042. EKG with QRS consistent with prior inferolateral infarct. ED had given lovenox for concern for PE. Tai placed and lasix given. Admitted for further care under investigation for COVID 19. Patient's was managed in the ICU with consultation with cardiology and pulmonology. Patient's respiratory status improved. His Cobra testing was negative. Patient was eventually able to be titrated off BiPAP and tolerating on 10 L nasal cannula. Patient will be accepted at LTAC with BiPAP and also 10 L nasal cannula of oxygen. Patient was continued on heparin drip during his hospital stay for his DVT. On the patient did have a sudden drop in his platelets and hematology was consulted. At this point, he was switched from heparin to Argatroban. HIT antibody testing was sent and it was positive. Patient will be discharged with Eliquis 5mg BID. Patient should not receive heparin or lovenox for DVT prophylaxis before any procedures. Patient was working with PT OT during his hospital stay. Rest of hospital course was uneventful Physical Exam: General: Alert, Oriented X3 Heart: Regular rate (SR) Lungs: Clear Abdomen: Obese Extremities: No cyanosis Skin: No breakdown Disposition: Disposition/Orders: D/C to Another Facility Activity: Activity: Resume previous activity Diet: Diet: Cardiac Medications: Home Meds Active Scripts Apixaban (ELIQUIS) 5 Mg Tablet, 5 MG PO BID for HIT for 30 Days, #60 TAB Prov:MARIEL OLIVEIRA MD 05/31/20 Hydrocodone Bit/Acetaminophen (HYDROCODONE-APAP 5-325 ) 1 Tab Tablet, 1 TAB PO PRN Q6HRS PRN for PAIN for 5 Days, #20 TAB 0 Refills Prov:KATH CABALLERO MD 05/18/20 Aspirin (ASPIRIN EC) 81 Mg Tablet.dr, 1 TAB PO DAILY for CAD, #30 TAB 3 Refills Prov:YAYO RAJAN APRN 02/21/20 Reported Medications Tamsulosin Hcl (FLOMAX) 0.4 Mg Cap.er.24h, 1 CAP PO HS for BPH, #30 CAP 11 Refills 05/09/20 Fluticasone Propionate (FLUTICASONE PROPIONATE NASAL SPRAY) 16 Gm [place].susp, 2 SPRAY NS DAILY for allergies, #1 INHALER 11 Refills 05/09/20 Linaclotide (LINZESS) 145 Mcg Capsule, 145 MCG PO 3X/WEEK for IRRITABLE BOWEL, CAP 05/09/20 Fexofenadine Hcl (FEXOFENADINE HCL) 180 Mg Tablet, 1 TAB PO DAILY for allergies, #30 TAB 5 Refills 05/09/20 Ascorbic Acid (VITAMIN C) 500 Mg Capsule.er, 1000 MG PO DAILY for supplement, CAP.SR 05/09/20 Multivits-Minerals/Fa/Lycopene (ONE DAILY FOR MEN TABLET) 1 Each Tablet, 1 TAB PO DAILY for supplement for 30 Days, #30 TAB 0 Refills 05/09/20 Ferrous Sulfate (IRON) 325 Mg Tablet, 65 MG PO DAILY for anemia, TAB 05/09/20 Allopurinol (ALLOPURINOL) 300 Mg Tablet, 1 TAB PO DAILY for Hyperunicemia, #30 TAB 5 Refills 05/09/20 Ergocalciferol (Vitamin D2) (VITAMIN D2) 50,000 Unit Capsule, 25147 UNIT PO WEEKLY Dose given on the Take on 05/29/16 Pantoprazole Sodium (PANTOPRAZOLE SODIUM ) 40 Mg Tablet.dr, 1 TAB PO DAILY, #30 TAB 3 Refills Gave this morning take tomorrow morning 04/30/16 Tizanidine Hcl (TIZANIDINE HCL) 4 Mg Tablet, 1 TAB PO QHS, #30 TAB Gave dose last night Take tonight before bedtime 05/31/15 Icosapent Ethyl (VASCEPA) 1 Gm Capsule, 1 GM PO Not given on this admission Take as previoulsy instructed 09/23/14 Atorvastatin Calcium (ATORVASTATIN CALCIUM) 20 Mg Tablet, 1 TAB PO HS for HLD, #30 TAB 5 Refills Gave last night Take tonight 09/23/14 Clopidogrel Bisulfate (CLOPIDOGREL) 75 Mg Tablet, 1 TAB PO DAILY, #90 TAB 1 Refill Gave this morning take tomorrow morning 09/23/14 Isosorbide Mononitrate (ISOSORBIDE MONONITRATE ER) 30 Mg Tab.er.24h, 60 MG PO DAILY, #30 TAB 5 Refills Gave this morning take tomorrow morning 09/23/14 Repaglinide (REPAGLINIDE) 1 Mg Tablet, 1 MG PO Not given on this admission Continue as previously instructed 09/23/14 Metoprolol Succinate (TOPROL XL) 50 Mg Tab.er.24h, 1 TAB PO DAILY, #30 TAB 5 Refills Gave this morning take tomorrow morning 09/23/14 Discontinued Scripts Amoxicillin/Potassium Clav (AMOX TR-K CLV 500-125 MG TAB) 1 Each Tablet, 1 TAB PO BID for uti for 10 Days, #20 TAB Prov:KATH CABALLERO MD 05/15/20 Scheduled Allopurinol (Allopurinol), 1 TAB PO DAILY, (Reported) Apixaban (Eliquis), 5 MG PO BID Ascorbic Acid (Vitamin C), 1,000 MG PO DAILY, (Reported) Aspirin (Aspirin Ec), 1 TAB PO DAILY Atorvastatin Calcium (Atorvastatin Calcium), 1 TAB PO HS, (Reported) Clopidogrel Bisulfate (Clopidogrel), 1 TAB PO DAILY, (Reported) Ergocalciferol (Vitamin D2) (Vitamin D2), 50,000 UNIT PO WEEKLY, (Reported) Ferrous Sulfate (Iron), 65 MG PO DAILY, (Reported) Fexofenadine Hcl (Fexofenadine Hcl), 1 TAB PO DAILY, (Reported) Fluticasone Propionate (Fluticasone Propionate Nasal [place]), 2 SPRAY NS DAILY, (Reported) Isosorbide Mononitrate (Isosorbide Mononitrate Er), 60 MG PO DAILY, (Reported) Linaclotide (Linzess), 145 MCG PO 3X/WEEK, (Reported) Metoprolol Succinate (Toprol Xl), 1 TAB PO DAILY, (Reported) Multivits-Minerals/Fa/Lycopene (One Daily For Men Tablet), 1 TAB PO DAILY, (Reported) Pantoprazole Sodium (Pantoprazole Sodium ), 1 TAB PO DAILY, (Reported) Tamsulosin Hcl (Flomax), 1 CAP PO HS, (Reported) Tizanidine Hcl (Tizanidine Hcl), 1 TAB PO QHS, (Reported) Scheduled PRN Hydrocodone Bit/Acetaminophen (Hydrocodone-Apap 5-325 ), 1 TAB PO PRN Q6HRS PRN for PAIN Miscellaneous Medications Icosapent Ethyl (Vascepa), 1 GM PO, (Reported) Repaglinide (Repaglinide), 1 MG PO, (Reported) Discontinued Medications Amoxicillin/Potassium Clav (Amox Tr-K Clv 500-125 Mg Tab), 1 TAB PO BID Total Time: Total Time: Total time spent was 40 minutes in preparing scripts, discharge planning with SWI and RN and preparing this discharge summary Justicifation of Admission Dx: Justifications for Admission: Justification of Admission Dx: Yes CHF: Hemodynamic Instability Angina: Symp at Rest MARIEL OLIVEIRA MD May 30, 2020 13:43
[2020-05-30 14:52] VITALS: BP 119/71
[2020-05-30 19:00] VITALS: BP 114/52
[2020-05-30] MEDS: TAMSULOSIN 0.4 MG CAP.ER.24H. PO SCH (19:53)
[2020-05-30] MEDS: ATORVASTATIN CALCIUM 20 MG TABLET PO SCH (19:53)
[2020-05-30] MEDS: HYDROcodone/APAP 5/325MG 1 TAB TABLET PO PRN (21:29)
[2020-05-30] MEDS: INSULIN GLARGINE SYRINGE. SQ SCH (21:30)
[2020-05-30] MEDS ORDERED: ALPRAZolam 0.5 MG TABLET PO PRN (22:00)
[2020-05-30 23:00] VITALS: BP 113/61
[2020-05-31] MEDS: MORPHINE SULFATE 4 MG/ML VIAL. IV PRN ×2 (02:45→12:27)
[2020-05-31 03:00] VITALS: BP 137/68
[2020-05-31 04:41] LABS: HEMATOCRIT 38.6 % (39.0-53.0); HEMOGLOBIN 12.9 g/dL (13.0-17.5); RED BLOOD COUNT 4.08 x10^6/uL (4.30-5.70); RED CELL DISTRIBUTION WIDTH 15.7 % (11.5-14.5); WHITE BLOOD COUNT 8.9 x10^3/uL (4.0-11.0)
[2020-05-31] MEDS: ARGATROBAN 50 MG in IV NORMAL SALINE 50ML 50 ML IV PRN ×3 (05:24→16:09)
[2020-05-31 07:00] VITALS: BP 135/77
--- NOTE | 2020-05-31 08:39 | PDOC ---
CARDIO Progress Notes Date and Time Date of Service 05/31/2020 Time of Evaluation 0935 Subjective Subjective: No Chest Pain, No shortness of breath, No Palpitations, Other (wants ramirez out) Vitals Vitals Vital Signs Date Time Temp Pulse Resp B/P (MAP) Pulse Ox O2 Delivery O2 Flow Rate FiO2 05/31/20 07:00 97.7 63 24 135/77 (96) 98 Nasal Cannula 10.0 97.7 Weight Weight [ ] Input and Output Intake and Output Intake and Output 05/31/20 07:00 Intake Total 520 ml Output Total 1625 ml Balance -1105 ml Intake Oral 300 ml IV Total 220 ml Output Urine Total 1625 ml # Voids 2 Laboratory Labs Laboratory Tests Test 05/30/20 11:59 05/30/20 12:39 05/30/20 16:50 05/30/20 17:15 Glucose (Fingerstick) 190 mg/dL (70-99) 145 mg/dL (70-99) Activated Partial Thromboplast Time 67 SEC (24-38) 66 SEC (24-38) Test 05/30/20 20:20 05/31/20 03:40 05/31/20 07:35 Glucose (Fingerstick) 163 mg/dL (70-99) 151 mg/dL (70-99) White Blood Count 8.9 x10^3/uL (4.0-11.0) Red Blood Count 4.08 x10^6/uL (4.30-5.70) Hemoglobin 12.9 g/dL (13.0-17.5) Hematocrit 38.6 % (39.0-53.0) Mean Corpuscular Volume 95 fL (79-100) Mean Corpuscular Hemoglobin 32 pg (25-35) Mean Corpuscular Hemoglobin Concent 34 g/dL (31-37) Red Cell Distribution Width 15.7 % (11.5-14.5) Platelet Count 119 x10^3/uL (140-400) Activated Partial Thromboplast Time 67 SEC (24-38) Microbiology Micro Microbiology 05/24/20 Urine Culture - Final, Complete 05/24/20 Blood Culture - Final, Complete NO GROWTH AFTER 5 DAYS Physical Exam HEENT: Neck Supple W Full Motion Chest: Symmetric LUNGS: Other (diminished ) Heart: S1S2, RRR (SR) Abdomen: Other (obese) Extremities: Other (1+ bilateral LE edema ) Neurology: alert, oriented, follow commands Assessment Assessment 1. Acute hypoxemic respiratory failure: Secondary to CHF and PE COVID test negative.SOA better 2. Chest pain: doubt ACS, noncardiac and most probably pleuritic secondary to PE 3. CAD; s/p previous PCI/stents to the LCx and 1st diagonal. s/p PCI/JOELLE to the RCA 05/17/20. Trops are normal. EKG SR without acute changes. Clinically stable 4. Acute on chronic diastolic CHF, compensated 5. SUSANA: uses bipap 5. Hypertension; controlled 6. Hyperlipiemia; statin 7. DM2, per IM 8. SONIYA on CKD3: Cr stable 9. Morbid obesity 10. BPH with gross hematuria: likely trauma from ramirez insertion. 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 Acute PE/bilateral LE DVT Recommendations 1. Anticoagulation per pulmonary/hemonc in regards to PE/DVT treatment 2. Lasix therapy. 3. Secondary prevention 4. Continue ASA and Plavix for now. Monitor PLT closely as patient is on triple therapy given concerns for PE and recent PCI/stent placement. 5. May discontinue ASA after 30 days and continue Plavix and OAC. 6. Follow up on July 03 at 1:15PM with Dr. Romeo Guevarafation of Admission Dx: Justifications for Admission: Justification of Admission Dx: Yes CHF: Hemodynamic Instability Angina: Symp at Rest YAYO RAJAN APRN May 31, 2020 08:38
[2020-05-31] MEDS: ASPIRIN ENTERIC COATED 81 MG TABLET.DR. PO SCH (08:50)
[2020-05-31] MEDS: FUROSEMIDE 40 MG TABLET. PO SCH (08:50)
[2020-05-31] MEDS: HYDROcodone/APAP 5/325MG 1 TAB TABLET PO PRN (08:50)
[2020-05-31] MEDS: ISOSORBIDE MONONITRATE ER 30 MG TAB.ER.24H PO SCH (08:51)
[2020-05-31] MEDS: CLOPIDOGREL BISULFATE 75 MG TABLET PO SCH (08:51)
[2020-05-31] MEDS: FERROUS SULFATE 325 MG TABLET. PO SCH (08:51)
[2020-05-31] MEDS: METOPROLOL SUCC 24HR ER 50 MG TAB.ER.24H. PO SCH (08:51)
[2020-05-31] MEDS: LACTOBACILLUS RHAMNOSUS GG 1 CAPSULE. PO SCH (08:51)
[2020-05-31] MEDS: FAMOTIDINE 20 MG TABLET. PO SCH (08:51)
[2020-05-31] MEDS: INSULIN LISPRO 300 UNITS/3 ML VIAL. SQ SCH ×3 (08:58→18:24)
[2020-05-31] MEDS: FLUTICASONE 50MCG/NASAL SPRAY 16GM BOTTLE. NS SCH (09:45)
[2020-05-31] MEDS: ARGATROBAN PER PHARMACY. MC PRN (09:54)
--- NOTE | 2020-05-31 10:13 | PDOC ---
PULMONARY PROGRESS NOTES Subjective now on 10 liters N/C, BIPAP at NOC and PRN no C/O of SOB or cough complains of bladder pain, hematuria has resolved Vitals Vital Signs Date Time Temp Pulse Resp B/P (MAP) Pulse Ox O2 Delivery O2 Flow Rate FiO2 05/31/20 08:51 63 135/77 05/31/20 08:50 Nasal Cannula 10.0 05/31/20 07:00 97.7 24 98 97.7 ROS: No Nausea, No Chest Pain, No Abdominal Pain, No Increase Cough General: Alert, No acute distress Lungs: Clear Cardiovascular: S1 Abdomen: Soft, Other (obese) Neuro Exam: Alert Extremities: Other (2+edema) Skin: Warm Labs Laboratory Tests Test 05/29/20 12:05 05/29/20 13:40 05/29/20 16:10 05/29/20 17:42 Glucose (Fingerstick) 207 mg/dL (70-99) 158 mg/dL (70-99) White Blood Count 9.4 x10^3/uL (4.0-11.0) Red Blood Count 4.00 x10^6/uL (4.30-5.70) Hemoglobin 12.7 g/dL (13.0-17.5) Hematocrit 37.6 % (39.0-53.0) Mean Corpuscular Volume 94 fL (79-100) Mean Corpuscular Hemoglobin 32 pg (25-35) Mean Corpuscular Hemoglobin Concent 34 g/dL (31-37) Red Cell Distribution Width 15.0 % (11.5-14.5) Platelet Count 85 x10^3/uL (140-400) Neutrophils (%) (Auto) 80 % (31-73) Lymphocytes (%) (Auto) 10 % (24-48) Monocytes (%) (Auto) 7 % (0-9) Eosinophils (%) (Auto) 1 % (0-3) Basophils (%) (Auto) 1 % (0-3) Neutrophils # (Auto) 7.6 x10^3/uL (1.8-7.7) Lymphocytes # (Auto) 1.0 x10^3/uL (1.0-4.8) Monocytes # (Auto) 0.7 x10^3/uL (0.0-1.1) Eosinophils # (Auto) 0.1 x10^3/uL (0.0-0.7) Basophils # (Auto) 0.1 x10^3/uL (0.0-0.2) Vitamin B12 Level 1963 pg/mL (247-911) Activated Partial Thromboplast Time 107 SEC (24-38) Test 05/29/20 21:29 05/29/20 22:25 05/30/20 05:40 05/30/20 07:42 Glucose (Fingerstick) 172 mg/dL (70-99) 160 mg/dL (70-99) Activated Partial Thromboplast Time 107 SEC (24-38) 88 SEC (24-38) White Blood Count 8.4 x10^3/uL (4.0-11.0) Red Blood Count 4.04 x10^6/uL (4.30-5.70) Hemoglobin 12.7 g/dL (13.0-17.5) Hematocrit 38.4 % (39.0-53.0) Mean Corpuscular Volume 95 fL (79-100) Mean Corpuscular Hemoglobin 31 pg (25-35) Mean Corpuscular Hemoglobin Concent 33 g/dL (31-37) Red Cell Distribution Width 15.7 % (11.5-14.5) Platelet Count 94 x10^3/uL (140-400) Sodium Level 133 mmol/L (136-145) Potassium Level 3.6 mmol/L (3.5-5.1) Chloride Level 101 mmol/L (98-107) Carbon Dioxide Level 22 mmol/L (21-32) Anion Gap 10 (6-14) Blood Urea Nitrogen 42 mg/dL (8-26) Creatinine 1.5 mg/dL (0.7-1.3) Estimated GFR (Cockcroft-Gault) 46.7 Glucose Level 155 mg/dL (70-99) Calcium Level 8.8 mg/dL (8.5-10.1) Magnesium Level 2.5 mg/dL (1.8-2.4) Test 05/30/20 11:59 05/30/20 12:39 05/30/20 16:50 05/30/20 17:15 Glucose (Fingerstick) 190 mg/dL (70-99) 145 mg/dL (70-99) Activated Partial Thromboplast Time 67 SEC (24-38) 66 SEC (24-38) Test 05/30/20 20:20 05/31/20 03:40 05/31/20 07:35 Glucose (Fingerstick) 163 mg/dL (70-99) 151 mg/dL (70-99) White Blood Count 8.9 x10^3/uL (4.0-11.0) Red Blood Count 4.08 x10^6/uL (4.30-5.70) Hemoglobin 12.9 g/dL (13.0-17.5) Hematocrit 38.6 % (39.0-53.0) Mean Corpuscular Volume 95 fL (79-100) Mean Corpuscular Hemoglobin 32 pg (25-35) Mean Corpuscular Hemoglobin Concent 34 g/dL (31-37) Red Cell Distribution Width 15.7 % (11.5-14.5) Platelet Count 119 x10^3/uL (140-400) Activated Partial Thromboplast Time 67 SEC (24-38) Laboratory Tests Test 05/30/20 11:59 05/30/20 12:39 05/30/20 16:50 05/30/20 17:15 Glucose (Fingerstick) 190 mg/dL (70-99) 145 mg/dL (70-99) Activated Partial Thromboplast Time 67 SEC (24-38) 66 SEC (24-38) Test 05/30/20 20:20 05/31/20 03:40 05/31/20 07:35 Glucose (Fingerstick) 163 mg/dL (70-99) 151 mg/dL (70-99) White Blood Count 8.9 x10^3/uL (4.0-11.0) Red Blood Count 4.08 x10^6/uL (4.30-5.70) Hemoglobin 12.9 g/dL (13.0-17.5) Hematocrit 38.6 % (39.0-53.0) Mean Corpuscular Volume 95 fL (79-100) Mean Corpuscular Hemoglobin 32 pg (25-35) Mean Corpuscular Hemoglobin Concent 34 g/dL (31-37) Red Cell Distribution Width 15.7 % (11.5-14.5) Platelet Count 119 x10^3/uL (140-400) Activated Partial Thromboplast Time 67 SEC (24-38) Medications Active Scripts Medications Dose Route/Sig Max Daily Dose Days Date Category Dose Instructions Hydrocodone-Apap 5-325 (Hydrocodone Bit/Acetaminophen) 1 Tab Tablet 1 Tab PO PRN Q6HRS PRN 5 05/18/20 Rx Amox Tr-K Clv 500-125 Mg Tab (Amoxicillin/Potassium Clav) 1 Each Tablet 1 Tab PO BID 10 05/15/20 Rx Flomax (Tamsulosin Hcl) 0.4 Mg Cap.er.24h 1 Cap PO HS 05/09/20 Reported Fluticasone Propionate Nasal Coral (Fluticasone Propionate) 16 Gm Coral.susp 2 Coral NS DAILY 05/09/20 Reported Linzess (Linaclotide) 145 Mcg Capsule 145 Mcg PO 3X/WEEK 05/09/20 Reported Fexofenadine Hcl 180 Mg Tablet 1 Tab PO DAILY 05/09/20 Reported Vitamin C (Ascorbic Acid) 500 Mg Capsule.er 1,000 Mg PO DAILY 05/09/20 Reported One Daily For Men Tablet (Multivits-Minerals/Fa/Lycopene) 1 Each Tablet 1 Tab PO DAILY 30 05/09/20 Reported Iron (Ferrous Sulfate) 325 Mg Tablet 65 Mg PO DAILY 05/09/20 Reported Allopurinol 300 Mg Tablet 1 Tab PO DAILY 05/09/20 Reported Aspirin Ec (Aspirin) 81 Mg Tablet. 1 Tab PO DAILY 02/21/20 Rx Vitamin D2 (Ergocalciferol (Vitamin D2)) 50,000 Unit Capsule 50,000 Unit PO WEEKLY 05/29/16 Reported Dose given on the Take on Pantoprazole Sodium (Pantoprazole Sodium) 40 Mg Tablet. 1 Tab PO DAILY 04/30/16 Reported Gave this morning take tomorrow morning Tizanidine Hcl 4 Mg Tablet 1 Tab PO QHS 05/31/15 Reported Gave dose last night Take tonight before bedtime Vascepa (Icosapent Ethyl) 1 Gm Capsule 1 Gm PO 09/23/14 Reported Not given on this admission Take as previoulsy instructed Atorvastatin Calcium 20 Mg Tablet 1 Tab PO HS 09/23/14 Reported Gave last night Take tonight Clopidogrel (Clopidogrel Bisulfate) 75 Mg Tablet 1 Tab PO DAILY 09/23/14 Reported Gave this morning take tomorrow morning Isosorbide Mononitrate Er (Isosorbide Mononitrate) 30 Mg Tab.er.24h 60 Mg PO DAILY 09/23/14 Reported Gave this morning take tomorrow morning Repaglinide 1 Mg Tablet 1 Mg PO 09/23/14 Reported Not given on this admission Continue as previously instructed Toprol Xl (Metoprolol Succinate) 50 Mg Tab.er.24h 1 Tab PO DAILY 09/23/14 Reported Gave this morning take tomorrow morning Impression . 1. Acute hypoxic respiratory failure due to pulmonary embolism./ UNDERLYING MORBID OBESITY-- cont. BIPA at NOC and PRN and now on 10 liters N/C 2. CAD; s/p previous PCI/stents to the LCx and 1st diagonal. s/p PCI/JOELLE to the RCA 05/17/20. Trops are normal. EKG SR without acute changes. Clinically stable 3. Underlying morbid obesity with a BMI of 54. 4. Acute kidney injury versus chronic kidney disease. 5. hematuria, --resolved 6. DVT bilateral 7. Progressive thrombocytopenia cont. ARGATROBAN Plan . 1. PRN BIPAP 2. Discussed with RN. 3. Hematology rec. Suspected HIT. started on Argatroban, off heparin 4. venous Dopplers of lower extremities positive for DVT 5. Follow cardiology recommendations. 6. Weight loss is strongly emphasized. 7. Consider sleep study as an outpatient. 8. Neg COVID testing 9. Discussed with RN / needs PT/ OT 10. d/w WASHINGTON HORVATH MD May 31, 2020 10:13
--- NOTE | 2020-05-31 10:48 | NUR ---
SS following up with discharge planning. SS reviewed pt chart and discussed with pt RN. Pt on BIPAP HS and 10 liters nasal canula. Pt accepted at [facility], ; fax [phone]. Discharge orders faxed to [facility] [place]. SS received notification from Sue at [facility] [place] that pt would have bed today. Sue to contact SS with transport time. SS will continue to follow for discharge planning.
[2020-05-31 11:00] VITALS: BP 100/52
[2020-05-31 13:27] LABS: CALCIUM 8.5 mg/dL (8.5-10.1); CREATININE 1.4 mg/dL (0.7-1.3); GFR 50.5; MAGNESIUM 2.2 mg/dL (1.8-2.4); POTASSIUM 3.7 mmol/L (3.5-5.1)
--- NOTE | 2020-05-31 13:30 | NUR ---
SS following up with discharge planning. Bed available at [facility], ; fax [phone]. Pt will discharge today and go to [facility] at 1900 via [facility] transport. Pt, pt's spouse, and pt's RN notified. Packet and ambulance form on the chart.
--- NOTE | 2020-05-31 13:42 | PDOC ---
PROGRESS NOTES Subjective Subjective Mr Drake was seen in follow-up today. He reports that his breathing has been stable. He denies fever, chills, chest pain. He denies bleeding. Argatroban infusion was ongoing during my visit. PMH, PSH, FH and social history are unchanged Objective Objective Vital Signs Date Time Temp Pulse Resp B/P (MAP) Pulse Ox O2 Delivery O2 Flow Rate FiO2 05/31/20 12:27 Nasal Cannula 10.0 05/31/20 11:00 97.5 62 24 100/52 (68) 95 97.5 Intake and Output 05/31/20 07:00 Intake Total 520 ml Output Total 1625 ml Balance -1105 ml Intake Oral 300 ml IV Total 220 ml Output Urine Total 1625 ml # Voids 2 Physical Exam Abdomen: Normal bowel sounds, Soft Heart: Regular rate Extremities: No clubbing General: Alert, Oriented X3 HEENT: Atraumatic Lungs: Clear to auscultation MUSCULOSKELETAL: No joint tenderness Neck: Supple, No JVD Neuro: Normal gait Psych/Mental Status: Mental status NL Skin: No rashes Diagnosis Problems: (1) Heparin induced thrombocytopenia (HIT) Assessment Assessment Assessment/Plan Heparin induced thrombocytopenia, verbal report received from lab with OD 2.342 Acute hypoxic respiratory failure Pulmonary embolism Bilateral lower extremity DVT Coronary artery disease status post PCI on 05/17/2020 Type 2 diabetes Morbid obesity Plan Plan of Care -Reviewed results of HIT ab testing from [facility]. Faxed report not available per lab but optical density for HIT Ab was 2.342. -These results confirm the diagnosis of heparin induced thrombocytopenia (HIT) -Can DC Argatroban gtt and start Eliquis 5 mg BID -Would recommend at least 3 months of therapeutic anticoagulation with Eliquis -He cannot receive heparin or lovenox for prophylactic/therapeutic anticoagulation and alternatives such as bivalirudin or argatroban should be used for vascular procedures -Follow-up with me in clinic in 1 month to discuss duration of anticoagulation and risks benefits of extending AC beyond 3 months Gadiel Ignacio MD Medical Oncology/Hematology Ph: [phone] Comment Review of Relevant I have reviewed the following items jm (where applicable) has been applied. Labs Laboratory Tests Test 05/29/20 13:40 05/29/20 16:10 05/29/20 17:42 7/28/20 21:29 White Blood Count 9.4 x10^3/uL (4.0-11.0) Red Blood Count 4.00 x10^6/uL (4.30-5.70) Hemoglobin 12.7 g/dL (13.0-17.5) Hematocrit 37.6 % (39.0-53.0) Mean Corpuscular Volume 94 fL (79-100) Mean Corpuscular Hemoglobin 32 pg (25-35) Mean Corpuscular Hemoglobin Concent 34 g/dL (31-37) Red Cell Distribution Width 15.0 % (11.5-14.5) Platelet Count 85 x10^3/uL (140-400) Neutrophils (%) (Auto) 80 % (31-73) Lymphocytes (%) (Auto) 10 % (24-48) Monocytes (%) (Auto) 7 % (0-9) Eosinophils (%) (Auto) 1 % (0-3) Basophils (%) (Auto) 1 % (0-3) Neutrophils # (Auto) 7.6 x10^3/uL (1.8-7.7) Lymphocytes # (Auto) 1.0 x10^3/uL (1.0-4.8) Monocytes # (Auto) 0.7 x10^3/uL (0.0-1.1) Eosinophils # (Auto) 0.1 x10^3/uL (0.0-0.7) Basophils # (Auto) 0.1 x10^3/uL (0.0-0.2) Vitamin B12 Level 1963 pg/mL (247-911) Activated Partial Thromboplast Time 107 SEC (24-38) Glucose (Fingerstick) 158 mg/dL (70-99) 172 mg/dL (70-99) Test 05/29/20 22:25 05/30/20 05:40 05/30/20 07:42 05/30/20 11:59 Activated Partial Thromboplast Time 107 SEC (24-38) 88 SEC (24-38) White Blood Count 8.4 x10^3/uL (4.0-11.0) Red Blood Count 4.04 x10^6/uL (4.30-5.70) Hemoglobin 12.7 g/dL (13.0-17.5) Hematocrit 38.4 % (39.0-53.0) Mean Corpuscular Volume 95 fL (79-100) Mean Corpuscular Hemoglobin 31 pg (25-35) Mean Corpuscular Hemoglobin Concent 33 g/dL (31-37) Red Cell Distribution Width 15.7 % (11.5-14.5) Platelet Count 94 x10^3/uL (140-400) Sodium Level 133 mmol/L (136-145) Potassium Level 3.6 mmol/L (3.5-5.1) Chloride Level 101 mmol/L (98-107) Carbon Dioxide Level 22 mmol/L (21-32) Anion Gap 10 (6-14) Blood Urea Nitrogen 42 mg/dL (8-26) Creatinine 1.5 mg/dL (0.7-1.3) Estimated GFR (Cockcroft-Gault) 46.7 Glucose Level 155 mg/dL (70-99) Calcium Level 8.8 mg/dL (8.5-10.1) Magnesium Level 2.5 mg/dL (1.8-2.4) Glucose (Fingerstick) 160 mg/dL (70-99) 190 mg/dL (70-99) Test 05/30/20 12:39 05/30/20 16:50 05/30/20 17:15 05/30/20 20:20 Activated Partial Thromboplast Time 67 SEC (24-38) 66 SEC (24-38) Glucose (Fingerstick) 145 mg/dL (70-99) 163 mg/dL (70-99) Test 05/31/20 03:40 05/31/20 07:35 05/31/20 12:06 White Blood Count 8.9 x10^3/uL (4.0-11.0) Red Blood Count 4.08 x10^6/uL (4.30-5.70) Hemoglobin 12.9 g/dL (13.0-17.5) Hematocrit 38.6 % (39.0-53.0) Mean Corpuscular Volume 95 fL (79-100) Mean Corpuscular Hemoglobin 32 pg (25-35) Mean Corpuscular Hemoglobin Concent 34 g/dL (31-37) Red Cell Distribution Width 15.7 % (11.5-14.5) Platelet Count 119 x10^3/uL (140-400) Activated Partial Thromboplast Time 67 SEC (24-38) Glucose (Fingerstick) 151 mg/dL (70-99) 159 mg/dL (70-99) Laboratory Tests Test 05/30/20 16:50 05/30/20 17:15 05/30/20 20:20 05/31/20 03:40 Glucose (Fingerstick) 145 mg/dL (70-99) 163 mg/dL (70-99) Activated Partial Thromboplast Time 66 SEC (24-38) 67 SEC (24-38) White Blood Count 8.9 x10^3/uL (4.0-11.0) Red Blood Count 4.08 x10^6/uL (4.30-5.70) Hemoglobin 12.9 g/dL (13.0-17.5) Hematocrit 38.6 % (39.0-53.0) Mean Corpuscular Volume 95 fL (79-100) Mean Corpuscular Hemoglobin 32 pg (25-35) Mean Corpuscular Hemoglobin Concent 34 g/dL (31-37) Red Cell Distribution Width 15.7 % (11.5-14.5) Platelet Count 119 x10^3/uL (140-400) Test 05/31/20 07:35 05/31/20 12:06 Glucose (Fingerstick) 151 mg/dL (70-99) 159 mg/dL (70-99) Microbiology 05/24/20 Urine Culture - Final, Complete 05/24/20 Blood Culture - Final, Complete NO GROWTH AFTER 5 DAYS Medications Current Medications Nitroglycerin (Nitrostat) 0.4 mg PRN Q5MIN PRN SL CHEST PAIN Last administered on 05/24/20at 12:22; Start 05/24/20 at 12:00 Acetaminophen/ Hydrocodone Bitart (Lortab 5/325) 1 tab 1X ONCE PO Last administered on 05/24/20at 12:56; Start 05/24/20 at 12:45; Stop 05/24/20 at 12:46 ; Status DC Furosemide (Lasix) 40 mg 1X ONCE IVP Last administered on 05/24/20at 15:43; Start 05/24/20 at 13:00; Stop 05/24/20 at 13:01; Status DC Enoxaparin Sodium (Lovenox 100mg Syringe) 100 mg 1X ONCE SQ Last administered on 05/24/20 15:20; Start 05/24/20 at 14:15; Stop 05/24/20 at 14:29; Status DC Morphine Sulfate (Morphine Sulfate) 2 mg 1X ONCE IV Last administered on 05/24/20at 15:17; Start 05/24/20 at 14:30; Stop 05/24/20 at 14:37; Status DC Ondansetron HCl (Zofran) 4 mg PRN Q4HRS PRN IV NAUSEA/VOMITING Last administered on 05/29/20at 12:10; Start 05/24/20 at 14:45 Acetaminophen (Tylenol) 650 mg PRN Q4HRS PRN PO TEMP OVER 100.4F OR MILD PAIN Last administered on 05/30/20 08:41; Start 05/24/20 at 14:45 Aspirin (Ecotrin) 81 mg DAILY PO Last administered on 05/31/20 08:50; Start 05/25/20 at 09:00 Atorvastatin Calcium (Lipitor) 20 mg HS PO Last administered on 05/30/20at 19:53; Start 05/24/20 at 21:00 Clopidogrel Bisulfate (Plavix) 75 mg DAILY PO Last administered on 05/31/20 08:51; Start 05/25/20 at 09:00 Ferrous Sulfate (Feosol) 325 mg DAILY PO Last administered on 05/31/20 08:51; Start 05/25/20 at 09:00 Fluticasone Propionate (Flonase) 2 spray DAILY NS Last administered on 05/31/20 09:45; Start 05/25/20 at 09:00 Acetaminophen/ Hydrocodone Bitart (Lortab 5/325) 1 tab PRN Q6HRS PRN PO MODERATE PAIN Last administered on 05/26/20 09:04; Start 05/24/20 at 18:15; Stop 05/26/20 at 14:35; Status DC Isosorbide Mononitrate (Imdur) 60 mg DAILY PO Last administered on 05/31/20 08:51; Start 05/25/20 at 09:00 Pantoprazole Sodium (Protonix) 40 mg DAILYAC PO ; Start 05/25/20 at 07:30; Stop 05/25/20 at 09:30; Status DC Tamsulosin HCl (Flomax) 0.4 mg HS PO Last administered on 05/30/20 19:53; Start 05/24/20 at 21:00 Metoprolol Succinate (Toprol Xl) 50 mg DAILY PO Last administered on 05/31/20at 08:51; Start 05/25/20 at 09:00 Insulin Human Lispro (HumaLOG) 0-9 UNITS TIDACHC SQ Last administered on 05/31/20at 12:43; Start 05/24/20 at 21:00 Dextrose (Dextrose 50%-Water Syringe) 12.5 gm PRN Q15MIN PRN IV SEE COMMENTS; Start 05/24/20 at 18:15 Furosemide (Lasix) 40 mg [id number] IVP Last administered on 05/25/20at 12:52; Start 05/25/20 at 09:00; Stop 05/25/20 at 14:01; Status DC Morphine Sulfate (Morphine Sulfate) 4 mg PRN Q4HRS PRN IV PAIN Last administere d on 05/31/20at 12:27; Start 05/24/20 at 20:45 Pharmacy Consult (C.diff Med Screen By Rx) 1 each 1X ONCE MC ; Start 05/25/20 at 09:00; Stop 05/25/20 at 09:01; Status DC Famotidine (Pepcid) 20 mg BID PO Last administered on 05/31/20 08:51; Start 05/25/20 at 21:00 Lactobacillus Rhamnosus (Culturelle) 1 cap BID PO Last administered on 05/31/20at 08:51; Start 05/25/20 at 10:00 Heparin Sodium/ Dextrose 250 ml @ 0 mls/hr CONT PRN IV PER PROTOCOL Last administered on 05/28/20at 07:06; Start 05/25/20 at 14:00; Stop 05/28/20 at 14:00; Status DC Heparin Sodium (Porcine) (Heparin Sodium) 5,650 unit PRN Q6HRS PRN IV FOR UFH LEVEL LESS THAN 0.2 Last administered on 05/26/20at 10:45; Start 05/25/20 at 14:00; Stop 05/28/20 at 14:00; Status DC Heparin Sodium (Porcine) (Heparin Sodium) 2,800 unit PRN Q6HRS PRN IV FOR UFH LEVEL 0.2 - 0.29; Start 05/25/20 at 14:00; Stop 05/28/20 at 14:00; Status DC Warfarin Sodium (Coumadin Per Pharmacy) 1 each PRN DAILY PRN MC PER PROTOCOL Last administered on 05/28/20at 10:14; Start 05/25/20 at 14:00; Stop 05/29/20 at 07:28; Status DC Furosemide (Lasix) 40 mg DAILY PO Last administered on 05/31/20at 08:50; Start 05/26/20 at 09:00 Insulin Glargine (Lantus Syringe) 10 unit QHS SQ Last administered on 05/30/20at 21:30; Start 05/26/20 at 21:00 Warfarin Sodium (Coumadin) 7.5 mg 1X WARF ONCE PO Last administered on 05/26/20at 16:02; Start 05/26/20 at 16:00; Stop 05/26/20 at 16:01; Status DC Acetaminophen/ Hydrocodone Bitart (Lortab 5/325) 1 tab PRN Q4HRS PRN PO MODERATE PAIN Last administered on 05/31/20at 08:50; Start 05/26/20 at 14:45 Warfarin Sodium (Coumadin) 8 mg 1X WARF ONCE PO Last administered on 05/27/20at 16:44; Start 05/27/20 at 16:00; Stop 05/27/20 at 16:01; Status DC Potassium Chloride/Water 100 ml @ 100 mls/hr Q1HR IV Last administered on 05/28/20at 12:00; Start 05/28/20 at 09:00; Stop 05/28/20 at 12:59; Status DC Potassium Chloride/Water 100 ml @ 50 mls/hr 1X ONCE IV ; Start 05/28/20 at 08:45; Stop 05/28/20 at 10:44; Status UNV Potassium Chloride (Klor-Con) 40 meq 1X ONCE PO Last administered on 05/28/20at 12:10; Start 05/28/20 at 08:45; Stop 05/28/20 at 08:46; Status DC Warfarin Sodium (Coumadin) 5 mg 1X WARF ONCE PO ; Start 05/28/20 at 16:00; Stop 05/28/20 at 16:01; Status Cancel Warfarin Sodium (Coumadin) 10 mg 1X WARF ONCE PO ; Start 05/28/20 at 16:00; Stop 05/28/20 at 16:01; Status DC Apixaban (Eliquis) 10 mg BID PO Last administered on 05/28/20at 12:11; Start 05/28/20 at 12:00; Stop 05/28/20 at 16:37; Status DC Apixaban (Eliquis) 5 mg BID PO ; Start 06/04/20 at 09:00; Stop 05/28/20 at 16:37; Status DC Info (Anti-Coagulation Monitoring By Pharmacy) 1 each PRN DAILY PRN MC SEE COMMENTS Last administered on 05/29/20at 09:05; Start 05/28/20 at 11:45; Stop 05/29/20 at 13:27; Status DC Heparin Sodium/ Dextrose 250 ml @ 20 mls/hr CONT PRN IV PER PROTOCOL Last administered on 05/28/20at 23:28; Start 05/28/20 at 16:45; Stop 05/29/20 at 07:28; Status DC Heparin Sodium (Porcine) (Heparin Sodium) 5,650 unit PRN Q6HRS PRN IV FOR UFH LEVEL LESS THAN 0.2; Start 05/28/20 at 16:45; Stop 05/29/20 at 07:28; Status DC Heparin Sodium (Porcine) (Heparin Sodium) 2,850 unit PRN Q6HRS PRN IV FOR UFH LEVEL 0.2 - 0.29; Start 05/28/20 at 16:45; Stop 05/29/20 at 07:28; Status DC Warfarin Sodium (Coumadin Per Pharmacy) 1 each PRN DAILY PRN MC SEE COMMENTS; Start 05/28/20 at 21:00; Status UNV Warfarin Sodium (Coumadin) 10 mg 1X WARF ONCE PO Last administered on 05/28/20at 17:00; Start 05/28/20 at 17:00; Stop 05/28/20 at 17:01; Status DC Heparin Sodium/ Dextrose 250 ml @ 0 mls/hr CONT PRN IV PER PROTOCOL; Start 05/29/20 at 07:30; Stop 05/29/20 at 12:53; Status DC Heparin Sodium (Porcine) (Heparin Sodium) 30 UNITS / KG PRN Q6HRS PRN IV FOR PTT < 40; Start 05/29/20 at 07:30; Stop 05/29/20 at 07:31; Status DC Heparin Sodium (Porcine) (Heparin Sodium) 2,000 unit PRN Q6HRS PRN IV FOR PTT 40 - 58; Start 05/29/20 at 07:30; Stop 05/29/20 at 12:53; Status DC Heparin Sodium (Porcine) (Heparin Sodium) 1,000 unit PRN Q6HRS PRN IV FOR PTT 59 - 78 Last administered on 05/29/20at 07:36; Start 05/29/20 at 07:30; Stop 05/29/20 at 12:53; Status DC Heparin Sodium (Porcine) (Heparin Sodium) 5,500 unit PRN Q6HRS PRN IV FOR PTT < 40; Start 05/29/20 at 07:31; Stop 05/29/20 at 12:53; Status DC Argatroban (Argatroban Per Pharmacy) 1 each PRN DAILY PRN MC SEE COMMENTS Last administered on 05/31/20at 09:54; Start 05/29/20 at 13:00 Argatroban 50 mg/ Sodium Chloride 50 ml @ 22.392 mls/ hr CONT PRN IV PER PROTOCOL Last administered on 05/31/20at 11:07; Start 05/29/20 at 13:30 Alprazolam (Xanax) 0.5 mg PRN Q6HRS PRN PO ANXIETY / AGITATION Last administered on 05/30/20at 22:08; Start 05/30/20 at 22:00 Active Scripts Active Hydrocodone-Apap 5-325 (Hydrocodone Bit/Acetaminophen) 1 Tab Tablet 1 Tab PO PRN Q6HRS PRN 5 Days Aspirin Ec (Aspirin) 81 Mg Tablet.dr 1 Tab PO DAILY Reported Flomax (Tamsulosin Hcl) 0.4 Mg Cap.er.24h 1 Cap PO HS Fluticasone Propionate Nasal Reading (Fluticasone Propionate) 16 Gm Reading.susp 2 Reading NS DAILY Linzess (Linaclotide) 145 Mcg Capsule 145 Mcg PO 3X/WEEK Fexofenadine Hcl 180 Mg Tablet 1 Tab PO DAILY Vitamin C (Ascorbic Acid) 500 Mg Capsule.er 1,000 Mg PO DAILY One Daily For Men Tablet (Multivits-Minerals/Fa/Lycopene) 1 Each Tablet 1 Tab PO DAILY 30 Days Iron (Ferrous Sulfate) 325 Mg Tablet 65 Mg PO DAILY Allopurinol 300 Mg Tablet 1 Tab PO DAILY Vitamin D2 (Ergocalciferol (Vitamin D2)) 50,000 Unit Capsule 50,000 Unit PO WEEKLY Dose given on the Take on Pantoprazole Sodium (Pantoprazole Sodium) 40 Mg Tablet.dr 1 Tab PO DAILY Gave this morning take tomorrow morning Tizanidine Hcl 4 Mg Tablet 1 Tab PO QHS Gave dose last night Take tonight before bedtime Vascepa (Icosapent Ethyl) 1 Gm Capsule 1 Gm PO Not given on this admission Take as previoulsy instructed Atorvastatin Calcium 20 Mg Tablet 1 Tab PO HS Gave last night Take tonight Clopidogrel (Clopidogrel Bisulfate) 75 Mg Tablet 1 Tab PO DAILY Gave this morning take tomorrow morning Isosorbide Mononitrate Er (Isosorbide Mononitrate) 30 Mg Tab.er.24h 60 Mg PO DAILY Gave this morning take tomorrow morning Repaglinide 1 Mg Tablet 1 Mg PO Not given on this admission Continue as previously instructed Toprol Xl (Metoprolol Succinate) 50 Mg Tab.er.24h 1 Tab PO DAILY Gave this morning take tomorrow morning Vitals/I & O Vital Sign - Last 24 Hours 05/30/20 05/30/20 05/30/20 05/30/20 14:52 19:00 20:00 21:29 Temp 96.9 98.1 96.9 98.1 Pulse 69 91 Resp 19 19 B/P (MAP) 119/71 (87) 114/52 (72) Pulse Ox 97 96 96 O2 Delivery BiPAP/CPAP BiPAP/CPAP Bi-pap BiPAP/CPAP 05/30/20 05/30/20 05/30/20 05/31/20 22:29 23:00 23:30 02:45 Temp 97.9 97.9 Pulse 64 Resp 18 B/P (MAP) 113/61 (78) Pulse Ox 100 94 94 O2 Delivery BiPAP/CPAP BiPAP/CPAP BiPAP/CPAP BiPAP/CPAP 05/31/20 05/31/20 05/31/20 05/31/20 03:00 03:15 03:43 07:00 Temp 97.8 97.7 97.8 97.7 Pulse 64 63 Resp 18 24 B/P (MAP) 137/68 (91) 135/77 (96) Pulse Ox 98 94 98 O2 Delivery BiPAP/CPAP BiPAP/CPAP BiPAP/CPAP Nasal Cannula O2 Flow Rate 10.0 05/31/20 05/31/20 05/31/20 05/31/20 08:00 08:50 08:51 08:51 Pulse 63 63 B/P (MAP) 135/77 135/77 O2 Delivery Nasal Cannula Nasal Cannula O2 Flow Rate 10.0 10.0 05/31/20 05/31/20 05/31/20 09:50 11:00 12:27 Temp 97.5 97.5 Pulse 62 Resp 24 B/P (MAP) 100/52 (68) Pulse Ox 95 O2 Delivery Nasal Cannula Nasal Cannula Nasal Cannula O2 Flow Rate 10.0 10.0 10.0 Intake and Output 05/30/20 05/30/20 05/31/20 15:00 23:00 07:00 Intake Total 200 ml 320 ml Output Total 825 ml 800 ml Balance -625 ml -480 ml Justicifation of Admission Dx: Justifications for Admission: Justification of Admission Dx: Yes CHF: Hemodynamic Instability Angina: Symp at Rest AIXA IGNACIO MD May 31, 2020 13:41
[2020-05-31 15:00] VITALS: BP 105/51
[2020-05-31] MEDS ORDERED: APIX5TAB PO (16:35)
[2020-05-31] MEDS ORDERED: APIXABAN 5 MG TABLET. PO SCH ×2 (17:00)
--- NOTE | 2020-05-31 19:32 | NUR ---
Discharge Note: HARPREET HERR 2 [place] Discharge instructions and discharge home medications reviewed with Other facility and a copy given. All questions have been answered and understanding verbalized. The following instructions and handouts were given: PE info, DVT info, eliquis info, discharge instructions, follow ups. Discontinued lines and drains: left intact. Patient discharged to [facility] with [facility] via [facility] at 1925. Report had been called to DAVONTE Kelly at [facility].
[2020-06-04] MEDS ORDERED: APIXABAN 5 MG TABLET. PO SCH (09:00)
== END 2020-05-31 19:25 | DRG 175 ==
LOC: ER 11:44 → 6 SOUTH 14:40 → 1 WEST ICU 05-26 11:17 → 2 NORTH 05-29 14:58
PROVIDERS: ADMIT Internal Medicine; ATTEND Internal Medicine
PROC: 5A09357 Assistance with Respiratory Ventilation, Less than 24 Consecutive Hours, Continuous Positive Airway Pressure (ICD-10-PCS; principal; 2020-05-26)
PROC: 5A09357 Assistance with Respiratory Ventilation, Less than 24 Consecutive Hours, Continuous Positive Airway Pressure (ICD-10-PCS; 2020-05-27)
PROC: 5A09357 Assistance with Respiratory Ventilation, Less than 24 Consecutive Hours, Continuous Positive Airway Pressure (ICD-10-PCS; 2020-05-28)
DX: I26.99 Other pulmonary embolism without acute cor pulmonale (principal); N17.0 Acute kidney failure with tubular necrosis; J96.21 Acute and chronic respiratory failure with hypoxia; I50.33 Acute on chronic diastolic (congestive) heart failure; I13.0 Hypertensive heart and chronic kidney disease with heart failure and stage 1 through stage 4 chronic kidney disease, or unspecified chronic kidney disease; I82.403 Acute embolism and thrombosis of unspecified deep veins of lower extremity, bilateral; N13.8 Other obstructive and reflux uropathy; Z68.43 Body mass index [BMI] 50.0-59.9, adult; D75.82 Heparin induced thrombocytopenia (HIT); E11.22 Type 2 diabetes mellitus with diabetic chronic kidney disease; E11.51 Type 2 diabetes mellitus with diabetic peripheral angiopathy without gangrene; E66.01 Morbid (severe) obesity due to excess calories; E78.00 Pure hypercholesterolemia, unspecified; E78.5 Hyperlipidemia, unspecified; G47.33 Obstructive sleep apnea (adult) (pediatric); I25.119 Atherosclerotic heart disease of native coronary artery with unspecified angina pectoris; I25.2 Old myocardial infarction; J45.909 Unspecified asthma, uncomplicated; N18.3 Chronic kidney disease, stage 3 (moderate); N40.1 Benign prostatic hyperplasia with lower urinary tract symptoms; R31.0 Gross hematuria; Z20.828 Contact with and (suspected) exposure to other viral communicable diseases; Z79.02 Long term (current) use of antithrombotics/antiplatelets; Z79.82 Long term (current) use of aspirin; Z82.49 Family history of ischemic heart disease and other diseases of the circulatory system; Z95.5 Presence of coronary angioplasty implant and graft; G89.29 Other chronic pain; K21.9 Gastro-esophageal reflux disease without esophagitis
CPT/HCPCS: 36415; 36600; 51702; 71045; 78580; 80048; 80053; 81001; 82542; 82607; 82805; 82962; 83605; 83735; 83880; 84145; 84484; 85007; 85018; 85025; 85027; 85379; 85520; 85610; 85730; 87040; 87086; 93005; 93970; 94660; 94760; 96372; 96374; 96375; 99285; A9540; J0883; J1644; J1650; J1815; J1940; J2270; J2405; J3480; 97530-GO; 97530-GP; 97535-GO; G0378; U0003-CS

== ENCOUNTER → 2020-06-27 | Outpatient (CLI) | payer MEDICARE ==
[2020-05-31 15:00] VITALS: BP 105/51
[~2020-06-27] MED LIST changes: +APIX5TAB PO
--- NOTE | 2020-06-27 13:35 | RAD ---
EXAM: Bilateral lower extremity venous Doppler sonogram. HISTORY: Pain and swelling. Known DVT. TECHNIQUE: Dietz scale and color Doppler sonographic evaluation of the bilateral lower extremity veins with spectral waveform analysis was performed. FINDINGS: The exam is limited due to body habitus. There is nonocclusive thrombus within the right superficial femoral and popliteal veins, unchanged compared to the prior study. There is normal color flow, normal compressibility and there are normal spectral waveforms in the remainder of the bilateral lower extremity veins. There is a right popliteal cyst measuring 5.8 x 2.4 x 2.3 cm. IMPRESSION: 1. No change in nonocclusive thrombus within the right superficial femoral and popliteal veins. No new or progressive thrombus is seen. 2. Right Gutiérrez's cyst measuring 5.8 cm. Electronically signed by: Ann-Marie Mcguire MD (06/27/2020 1:32 PM) [facility]
== END | disposition home or self-care (01) ==
LOC: US 12:19
PROVIDERS: ATTEND Family Medicine
DX: I82.431 Acute embolism and thrombosis of right popliteal vein (principal); M71.21 Synovial cyst of popliteal space [Baker], right knee
CPT/HCPCS: 93970

== ENCOUNTER 2021-03-25 08:41 | Emergency (ER) | payer MEDICARE ==
[~2021-03-25] VITALS: Ht 185.4 cm; Wt 197.0 kg
[~2021-03-25 08:41] MED LIST changes: -ISOS30TA4 PO; +ISOS30TA68 PO; -LISI-334 PO; +LISI20TA18 PO
[2021-03-25 09:16] LABS: BASO % 1 % (0-3); EOS # 0.2 x10^3/uL (0.0-0.7); EOS % 3 % (0-3); HEMATOCRIT 36.1 % (39.0-53.0); HEMOGLOBIN 11.8 g/dL (13.0-17.5); LYMPH # 1.7 x10^3/uL (1.0-4.8); LYMPH % 23 % (24-48); MEAN CORPUSCULAR HEMOGLOBIN 32 pg (25-35); MEAN CORPUSCULAR HGB CONC 33 g/dL (31-37); MEAN CORPUSCULAR VOLUME 98 fL (79-100); MONO # 0.6 x10^3/uL (0.0-1.1); MONO % 8 % (0-9); NEUT # 4.8 x10^3/uL (1.8-7.7); NEUT % 65 % (31-73); PLATELET COUNT 186 x10^3/uL (140-400); RED BLOOD COUNT 3.68 x10^6/uL (4.30-5.70); RED CELL DISTRIBUTION WIDTH 17.3 % (11.5-14.5); WHITE BLOOD COUNT 7.4 x10^3/uL (4.0-11.0)
[2021-03-25 09:37] LABS: ALBUMIN/GLOBULIN RATIO 1.1 (1.0-1.7); CALCIUM 9.5 mg/dL (8.5-10.1); CREATININE 5.4 mg/dL (0.7-1.3); GFR 10.6; MAGNESIUM 2.3 mg/dL (1.8-2.4); TOTAL BILIRUBIN 0.6 mg/dL (0.2-1.0); TOTAL PROTEIN 7.5 g/dL (6.4-8.2)
[2021-03-25 09:43] LABS: POTASSIUM 7.3 mmol/L (3.5-5.1)
[2021-03-25] MEDS ORDERED: CALCIUM GLUCONATE 1,000 MG/10 ML VIAL. IVP ONE ×2 (09:45→11:30)
--- NOTE | 2021-03-25 09:45 | RAD ---
EXAM: CHEST ONE VIEW. HISTORY: Weakness. COMPARISON: 05/28/2020. FINDINGS: A frontal view of the chest is obtained. There are no confluent infiltrates. There is no pneumothorax or pleural effusion. The heart is not en larged. Anterior cervical discectomy and fusion changes are partially visualized. IMPRESSION: 1. No confluent infiltrates. Electronically signed by: River Louise MD (03/25/2021 9:43 AM) [facility]
[2021-03-25] MEDS ORDERED: INSULIN REGULAR 100 UNIT/ML 3ML VIAL. IV ONE (10:00)
[2021-03-25] MEDS ORDERED: DEXTROSE 50% 25 GM / 50ML DISP.SYRIN. IV ONE (10:00)
[2021-03-25] MEDS ORDERED: SODIUM BICARB ADULT 8.4% 50 MEQ/50 ML DISP.SYRIN. IV ONE (10:00)
--- NOTE | 2021-03-25 10:08 | PHYS DOC ---
Past Medical History Past Medical History: CAD, Diabetes-Type II, GERD, High Cholesterol, Heart Disease, Hypertension, [place], Other Additional Past Medical Histor: CHRONIC BACK PAIN, constipation Past Surgical History: Cholecystectomy, Lumbar Laminectomy Additional Past Surgical Histo: cardiac stents 12/15, 4 back surgeries, 1 neck surgery Smoking Status: Never Smoker Alcohol Use: None Drug Use: None General Adult EDM: Chief Complaint: MECHANICAL FALL HPI: HPI: 70-year-old male past medical history of CAD, DVT on Eliquis, BPH, hypertension, hyperlipidemia, morbid obesity, with multiple other comorbidities, presents to the ED brought in by EMS with complaints of right upper chest pain and buttock bruising after patient fell on Thursday at home. Patient states he called 911 at that time and they assisted him back to his chair/bed but he did not seek medical attention on Thursday. C/o "very weak," for the past week. Uses a walker due to "balance problems." Patient states he is on day 4 of antibiotics for UTI, abx starts with "oxy." Was just prescribed finasteride and Flomax by his primary care physician and has known bph. Also reports his yesterday at [facility], had "10 liters" of fluid removed from her abdomen. Pt reports that urology has the "only table that can hold my weight," to have a procedure done that Dr. Davey/pts' pcp, recommends. Pt is able to void spontaneously and states "you won't be able to get a cather in." Review of Systems: Review of Systems: Constitutional: Denies fever or chills. [] Eyes: Denies change in visual acuity. [] HENT: Denies nasal congestion or sore throat. [] Respiratory: Denies cough or shortness of breath. [] Cardiovascular: Denies hemoptysis or edema. [] GI: Denies abdominal pain, nausea, vomiting, bloody stools or diarrhea. [] : Denies saddle anesthesia or hematuria Musculoskeletal: Denies CVA tenderness or joint deformity Integument: Denies rash or diaphoresis Neurologic: Denies headache, focal weakness or sensory changes. [] Endocrine: Denies polyuria or polydipsia. [] Lymphatic: Denies swollen glands. [] Psychiatric: Denies depression or anxiety. [] Heart Score: C/O Chest Pain: No Risk Factors: Risk Factors: DM, Current or recent (<one month) smoker, HTN, HLP, family history of CAD, obesity. Risk Scores: Score 0 - 3: 2.5% MACE over next 6 weeks - Discharge Home Score 4 - 6: 20.3% MACE over next 6 weeks - Admit for Clinical Observation Score 7 - 10: 72.7% MACE over next 6 weeks - Early Invasive Strategies Current Medications: Current Medications Medications (Trade) Dose Ordered Sig/[facility] Start Time Stop Time Status Last Admin Dose Admin Calcium Gluconate (Calcium Gluconate) 1,000 mg 1X ONCE 03/25/21 09:45 03/25/21 09:48 DC Dextrose (Dextrose 50%-Water Syringe) 25 gm 1X ONCE 03/25/21 10:00 03/25/21 10:01 DC Insulin Human Regular (HumuLIN R VIAL) 5 unit 1X ONCE 03/25/21 10:00 03/25/21 10:01 DC Sodium Bicarbonate (Sodium Bicarb Adult 8.4% Syr) 50 meq 1X ONCE 03/25/21 10:00 03/25/21 10:01 DC Allergies: Allergies: Allergies Coded Allergies Type Severity Reaction Last Updated Verified heparin Adverse Reaction Severe 05/31/20 Yes Physical Exam: PE: Constitutional: no acute distress, non-toxic appearance, morbidly obese-requires assistance to roll on side HENT: Normocephalic, atraumatic, Eyes: EOMI, conjunctiva normal, no discharge. Neck: Normal range of motion, supple, no nuchal rigidity or meningismus Cardiovascular: S1/2 present, regular rhythm, ecchymosis and bruising over patient's right upper chest with no flail chest or subcutaneous emphysema Lungs & Thorax: Speaking in full sentences, bilateral equal chest rise, no tachypnea or increased work of breathing Abdomen: soft, no tenderness, no rigidity or guarding Skin: Warm, dry, no erythema, no rash. [] Back: No midline spinal tenderness or step-offs, no CVA tenderness. [] Extremities: No tenderness, no cyanosis, no unilateral lower extremity edema Neurologic: Alert and oriented X 3, normal motor function, normal sensory function, no focal deficits noted. [] Psychologic: Affect normal, judgement normal, mood -depressed/overwhelmed Current Patient Data: Labs: Laboratory Tests Test 03/25/21 08:45 White Blood Count 7.4 x10^3/uL (4.0-11.0) Red Blood Count 3.68 x10^6/uL (4.30-5.70) L Hemoglobin 11.8 g/dL (13.0-17.5) L Hematocrit 36.1 % (39.0-53.0) L Mean Corpuscular Volume 98 fL (79-100) Mean Corpuscular Hemoglobin 32 pg (25-35) Mean Corpuscular Hemoglobin Concent 33 g/dL (31-37) Red Cell Distribution Width 17.3 % (11.5-14.5) H Platelet Count 186 x10^3/uL (140-400) Neutrophils (%) (Auto) 65 % (31-73) Lymphocytes (%) (Auto) 23 % (24-48) L Monocytes (%) (Auto) 8 % (0-9) Eosinophils (%) (Auto) 3 % (0-3) Basophils (%) (Auto) 1 % (0-3) Neutrophils # (Auto) 4.8 x10^3/uL (1.8-7.7) Lymphocytes # (Auto) 1.7 x10^3/uL (1.0-4.8) Monocytes # (Auto) 0.6 x10^3/uL (0.0-1.1) Eosinophils # (Auto) 0.2 x10^3/uL (0.0-0.7) Basophils # (Auto) 0.0 x10^3/uL (0.0-0.2) Sodium Level 140 mmol/L (136-145) Potassium Level 7.3 mmol/L (3.5-5.1) *H Chloride Level 107 mmol/L (98-107) Carbon Dioxide Level 16 mmol/L (21-32) L Anion Gap 17 (6-14) H Blood Urea Nitrogen 98 mg/dL (8-26) H Creatinine 5.4 mg/dL (0.7-1.3) H Estimated GFR (Cockcroft-Gault) 10.6 BUN/Creatinine Ratio 18 (6-20) Glucose Level 127 mg/dL (70-99) H Calcium Level 9.5 mg/dL (8.5-10.1) Magnesium Level 2.3 mg/dL (1.8-2.4) Total Bilirubin 0.6 mg/dL (0.2-1.0) Aspartate Amino Transferase (AST) 18 U/L (15-37) Alanine Aminotransferase (ALT) 32 U/L (16-63) Alkaline Phosphatase 83 U/L (46-116) Troponin I Quantitative < 0.017 ng/mL (0.000-0.055) XQ-Qhi-C-Type Natriuretic Peptide 70 pg/mL (0-124) Total Protein 7.5 g/dL (6.4-8.2) Albumin 4.0 g/dL (3.4-5.0) Albumin/Globulin Ratio 1.1 (1.0-1.7) Laboratory Tests 03/25/21 08:45 Laboratory Tests 03/25/21 08:45 EKG: EKG: Sinus rhythm 81 bpm, no axis deviation, normal intervals, no T wave inversion, no ST elevations or ST depressions, no EKG signs of hyperkalemia Repeat EKG sinus rhythm at 75 bpm, no axis deviation, first-degree AV block with [place] interval 236, no T wave inversions, no ST elevations or ST depressions Radiology/Procedures: Radiology/Procedures: IMAGING REPORT Signed PATIENT: HARPREET HERR ACCOUNT: [id number] : 1950 LOCATION: ER AGE: 70 SEX: M EXAM STATUS: REG ER ORD. PHYSICIAN: JORDANA ORNELAS DO REASON: frequent falls/weakness, bruising over chest and buttocks PROCEDURE: CT HEAD AND CERVICAL SPINE WO Site ID: [id number] EXAMINATION: CT HEAD AND C-SPINE WO. TECHNIQUE: Noncontrast axial images of the brain and cervical spine with coronal and sagittal reconstructions were obtained. One or more of the following radiation dose reduction techniques was used: automated exposure control, adjustment of mA and/or KV according to patient size, and/or utilization of iterative reconstruction technique. HISTORY: 70 years Male Reason: frequent falls/weakness, bruising over chest and buttocks / Spl. Instructions: / History: . . FINDINGS: CT HEAD: There is no intracranial hemorrhage, edema or mass effect. The brain parenchyma demonstrates periventricular and deep white matter hypodensities compatible with chronic microvascular ischemic changes. No hydrocephalus. The visualized portions of the orbits and paranasal sinuses appear unremarkable. CT cervical spine: There are artifacts in the mid the cervical spine related to the anterior fusion hardware. This involves the anterior plate and screws extending from the C4-C6 level. The screws a projected between C6 and C7 endplates. There is also fusion hardware along the center of the vertebral bodies C4-C6. There is suggestion of bone fusion around these vertebral bodies. There is no widening of the predental space. The alignment at the posterior spinal line appears satisfactory. There is however reversal of the lordotic curvature in the mid to lower cervical spine levels. There are from posterior osteophytes at the multiple levels. The there is a bilateral osteophyte formation and the neural foramina from uncovertebral and facet arthropathy resulting in severe foraminal stenosis bilaterally at C3/4 and C4/5. There is no fracture seen. IMPRESSION: CT HEAD: No acute process. CT cervical spine: Anterior fusion hardware involving the C4-C6 levels is associated with artifacts which could obscure a subtle abnormality. Background prominent degenerative changes and reversal of the lordotic curvature in the mid to lower cervical spine. No fracture identified. Electronically signed by: Vito Kebede MD (03/25/2021 10:46 AM) [id number] DICTATED and SIGNED BY: VITO KEBEDE MD DATE: 03/25/21 [id number] IMAGING REPORT Signed PATIENT: HARPREET HERR ACCOUNT: [id number] : 1950 LOCATION: ER AGE: 70 SEX: M EXAM STATUS: REG ER ORD. PHYSICIAN: JORDANA ORNELAS DO REASON: frequent falls/weakness, bruising over chest and buttocks PROCEDURE: CT CHEST ABDOMEN PELVIS WO EXAM: Chest, abdomen and pelvis CT without intravenous contrast. HISTORY: Fall. TECHNIQUE: Computed tomographic images of the chest, abdomen and pelvis were obtained without intravenous contrast. Multiplanar reformatting was performed. *One or more of the following individualized dose reduction techniques were utilized for this examination: 1. Automated exposure control. 2. Adjustment of the mA and/or kV according to patient size. 3. Use of iterative reconstruction technique. COMPARISON: 02/18/2020. FINDINGS: Chest: The heart is normal in size. The thoracic aorta is normal in caliber. No pathologically enlarged lymph node is seen. There is calcified atherosclerotic plaque involving the coronary arteries. There is no pneumothorax. There is no pleural effusion. There is no infiltrate. There is no suspicious pulmonary nodule. There is bilateral posterior dependent and basilar atelectasis. No displaced rib fracture is seen. There is partial visualization of cervical spinal fusion instrumentation. There is degenerative change involving the thoracic spine. This includes multiple disc protrusions and disc osteophyte complexes and facet arthropathy, contribute to foraminal and central canal stenosis at multiple levels. There is no acute osseous finding. Abdomen and pelvis: No hepatic lesion is seen. There is mild hepatomegaly. The gallbladder is absent. The pancreas, spleen, stomach and adrenal glands are unremarkable. There is moderate left hydronephrosis and hydroureter extending to the bladder. No renal or ureteral stone is seen. There is increased density along the left lateral aspect of the bladder which is difficult to assess given adjacent bone artifact in the absence of contrast. There is no appendicitis. There is no bowel obstruction or abnormal bowel wall thickening. There is a right superior ventral abdominal wall hernia containing fat and a short segment of distal small bowel. The hernia defect measures 3.4 cm and the hernia sac measures 0.9 cm. There is focal fatty stranding within the midline ventral abdominal wall superior to the umbilicus, possibly inflammatory or due to a soft tissue contusion. There is moderate osteoarthritis involving both hips. There is a moderate anterior wedge compression deformity of L5. This is chronic in appearance. There is multilevel degenerative change throughout the remainder the lumbar spine. This is associated with foraminal and central canal stenosis at multiple levels. There is a bone island within T11. IMPRESSION: 1. Moderate L5 compression fracture. This is chronic in appearance. There is no convincing acute osseous finding. There is advanced degenerative change throughout the spine, resulting in foraminal and central canal stenosis at multiple levels. 2. Small superior right ventral abdominal wall hernia containing fat and a segment of small bowel. There is no evidence of bowel incarceration or mechanical obstruction. 3. Moderate left hydronephrosis and hydroureter. No obstructing stone is seen. There may be a left lateral bladder mass, difficult to assess in the absence of contrast. Correlate with urinalysis and cystoscopy or a CT urogram. 4. Hepatomegaly and suspected hepatic steatosis. Electronically signed by: Ann-Marie Perez MD (03/25/2021 11:18 AM) [id number] DICTATED and SIGNED BY: ANN-MARIE PEREZ MD DATE: 03/25/21 [id number] 0 IMAGING REPORT Signed PATIENT: HARPREET HERR ACCOUNT: [id number] : 1950 LOCATION: ER AGE: 70 SEX: M EXAM STATUS: PRE ER ORD. PHYSICIAN: JORDANA ORNELAS DO REASON: weakness PROCEDURE: PORTABLE CHEST 1V EXAM: CHEST ONE VIEW. HISTORY: Weakness. COMPARISON: 05/28/2020. FINDINGS: A frontal view of the chest is obtained. There are no confluent infiltrates. There is no pneumothorax or pleural effusion. The heart is not enlarged. Anterior cervical discectomy and fusion changes are partially visualized. IMPRESSION: 1. No confluent infiltrates. Electronically signed by: River Louise MD (03/25/2021 9:43 AM) [facility] DICTATED and SIGNED BY: BASHIR LOUISE MD DATE: 03/25/21 [id number] 0 Course & Med Decision Making: Course & Med Decision Making Pertinent Labs and Imaging studies reviewed. (See chart for details) Concern for acute hyperkalemia in the setting of acute on chronic prerenal failure concerning for possible urologic obstruction via left sided bladder mass in a pt with a known uti. Pt is HD stable. Micro urine culture from 05/2020 shows fluoroquinolone resistance-Rocephin given in ED. Patient accepted at [facility] for higher level of care. Patient stable at time of transfer and agrees with this plan. Critical Care: Authorized and Performed by: Jordana Ornelas DO Total critical care time: approximately 90 minutes Due to a high probability of clinically significant, life threatening deterioration, the patient required my highest level of preparedness to intervene emergently and I personally spent this critical care time directly and personally managing the patient. This critical care time included obtaining a history; examining the patient; pulse oximetry; ventilator management if necessary; ordering and review of studies; arranging urgent treatment with development of a management plan; evaluation of patient's response to treatment; frequent reassessment; discussion with patient/family; and, discussions with other providers. This critical care time was performed to assess and manage the high probability of imminent, life-threatening deterioration that could result in multi-organ failure. It was exclusive of separately billable procedures and treating other patients and teaching time. Please see MDM section and the rest of the note for further information on patient assessment and treatment. Dragon Disclaimer: Dragon Disclaimer: This electronic medical record was generated, in whole or in part, using a voice recognition dictation system. Departure Departure Impression: Primary Impression: Hyperkalemia Additional Impressions: UTI (urinary tract infection) Acute on chronic kidney failure Obstructive uropathy Disposition: [facility] (accepted by Dr. Fish EDWARDS, hand molder to admit to ICU) Condition: CRITICAL Referrals: Jessica WHITT MD (PCP) JORDANA ORNELAS DO March 25, 2021 10:07
[2021-03-25 10:30] LABS: BILIRUBIN,URINE NEGATIVE (NEG); COLOR,URINE YELLOW; NITRITE,URINE NEGATIVE (NEG); PH,URINE 5.5 (<5.0-8.0); PROTEIN,URINE NEGATIVE (NEG-TRACE); UROBILINOGEN,URINE 0.2 mg/dL (0.2 mg/dL)
[2021-03-25 10:36] LABS: BARBITURATES NEG (NEG); BENZODIAZEPINES NEG (NEG); CANNABINOIDS NEG (NEG); COCAINE NEG (NEG); METHADONE NEG (NEG); OPIATES NEG (NEG); PHENCYCLIDINE NEG (NEG)
[2021-03-25 10:41] LABS: AMPHETAMINE/METHAMPHETAMINE NEG (NEG)
[2021-03-25 10:46] LABS: BACTERIA,URINE MODERATE /HPF (0-FEW); HYALINE CASTS, URINE FEW /HPF; WBC,URINE TNTC /HPF (0-4)
[2021-03-25 10:48] LABS: CLARITY,URINE CLOUDY
--- NOTE | 2021-03-25 10:49 | RAD ---
Site ID: [id number] EXAMINATION: CT HEAD AND C-SPINE WO. TECHNIQUE: Noncontrast axial images of the brain and cervical spine with coronal and sagittal recon structions were obtained. One or more of the following radiation dose reduction techniques was used: automated exposure control , adjustment of mA and/or KV according to patient size, and/or utilization of iterative reconstructio n technique. HISTORY: 70 years Male Reason: frequent falls/weakness, bruising over chest and buttocks / Spl. Ins tructions: / History: . . FINDINGS: CT HEAD: There is no intracranial hemorrhage, edema or mass effect. The brain parenchyma demonstrates periven tricular and deep white matter hypodensities compatible with chronic microvascular ischemic changes. No hydrocephalus. The visualized portions of the orbits and paranasal sinuses appear unremarkable. CT cervical spine: There are artifacts in the mid the cervical spine related to the anterior fusion hardware. This invol ves the anterior plate and screws extending from the C4-C6 level. The screws a projected between C6 a nd C7 endplates. There is also fusion hardware along the center of the vertebral bodies C4-C6. There is suggestion of bone fusion around these vertebral bodies. There is no widening of the predental spa ce. The alignment at the posterior spinal line appears satisfactory. There is however reversal of the lordotic curvature in the mid to lower cervical spine levels. There are from posterior osteophytes a t the multiple levels. The there is a bilateral osteophyte formation and the neural foramina from uncovertebral and facet ar thropathy resulting in severe foraminal stenosis bilaterally at C3/4 and C4/5. There is no fracture seen. IMPRESSION: CT HEAD: No acute process. CT cervical spine: Anterior fusion hardware involving the C4-C6 levels is associated with artifacts which could obscure a subtle abnormality. Background prominent degenerative changes and reversal of the lordotic curvatur e in the mid to lower cervical spine. No fracture identified. Electronically signed by: Jad Kebede MD (03/25/2021 10:46 AM) [id number]
--- NOTE | 2021-03-25 11:20 | RAD ---
EXAM: Chest, abdomen and pelvis CT without intravenous contrast. HISTORY: Fall. TECHNIQUE: Computed tomographic images of the chest, abdomen and pelvis were obtained without intrave nous contrast. Multiplanar reformatting was performed. *One or more of the following individualized dose reduction techniques were utilized for this examina tion: 1. Automated exposure control. 2. Adjustment of the mA and/or kV according to patient size. 3. Use of iterative reconstruction technique. COMPARISON: 02/18/2020. FINDINGS: Chest: The heart is normal in size. The thoracic aorta is normal in caliber. No pathologica lly enlarged lymph node is seen. There is calcified atherosclerotic plaque involving the coronary art eries. There is no pneumothorax. There is no pleural effusion. There is no infiltrate. There is no boggs spicious pulmonary nodule. There is bilateral posterior dependent and basilar atelectasis. No displac ed rib fracture is seen. There is partial visualization of cervical spinal fusion instrumentation. Th ere is degenerative change involving the thoracic spine. This includes multiple disc protrusions and disc osteophyte complexes and facet arthropathy, contribute to foraminal and central canal stenosis a t multiple levels. There is no acute osseous finding. Abdomen and pelvis: No hepatic lesion is seen. There is mild hepatomegaly. The gallbladder is absent. The pancreas, spleen, stomach and adrenal glands are unremarkable. There is moderate left hydronephr osis and hydroureter extending to the bladder. No renal or ureteral stone is seen. There is increased density along the left lateral aspect of the bladder which is difficult to assess given adjacent bon e artifact in the absence of contrast. There is no appendicitis. There is no bowel obstruction or abn ormal bowel wall thickening. There is a right superior ventral abdominal wall hernia containing fat and a short segment of distal small bowel. The hernia defect measures 3.4 cm and the hernia sac measures 0.9 cm. There is focal fat ty stranding within the midline ventral abdominal wall superior to the umbilicus, possibly inflammato ry or due to a soft tissue contusion. There is moderate osteoarthritis involving both hips. There is a moderate anterior wedge compression deformity of L5. This is chronic in appearance. There is multil evel degenerative change throughout the remainder the lumbar spine. This is associated with foraminal and central canal stenosis at multiple levels. There is a bone island within T11. IMPRESSION: 1. Moderate L5 compression fracture. This is chronic in appearance. There is no convincing acute osse ous finding. There is advanced degenerative change throughout the spine, resulting in foraminal and c entral canal stenosis at multiple levels. 2. Small superior right ventral abdominal wall hernia containing fat and a segment of small bowel. Th ere is no evidence of bowel incarceration or mechanical obstruction. 3. Moderate left hydronephrosis and hydroureter. No obstructing stone is seen. There may be a left la teral bladder mass, difficult to assess in the absence of contrast. Correlate with urinalysis and cys toscopy or a CT urogram. 4. Hepatomegaly and suspected hepatic steatosis. Electronically signed by: Ann-Marie Mcguire MD (03/25/2021 11:18 AM) [id number]
[2021-03-25] MEDS ORDERED: cefTRIAXone IV Push 1 GM VIAL. IVP ONE (13:00)
[2021-03-25] MEDS ORDERED: IV NORMAL SALINE 1000ML BAG 1,000 ML IV ONE (13:00)
[2021-03-25] MEDS ORDERED: ALPRAZolam 0.25 MG TABLET PO ONE (13:45)
[2021-03-25 14:05] VITALS: BP 128/60
--- NOTE | 2021-03-25 14:48 | EKG ---
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
--- NOTE | 2021-03-25 15:55 | EKG ---
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
== END 2021-03-25 15:55 | disposition short-term general hospital (02) ==
LOC: ER 08:41
DX: S20.212A Contusion of left front wall of thorax, initial encounter (principal); N39.0 Urinary tract infection, site not specified; E87.5 Hyperkalemia; E11.22 Type 2 diabetes mellitus with diabetic chronic kidney disease; I13.10 Hypertensive heart and chronic kidney disease without heart failure, with stage 1 through stage 4 chronic kidney disease, or unspecified chronic kidney disease; N18.9 Chronic kidney disease, unspecified; N13.9 Obstructive and reflux uropathy, unspecified; K21.9 Gastro-esophageal reflux disease without esophagitis; E78.00 Pure hypercholesterolemia, unspecified; I25.10 Atherosclerotic heart disease of native coronary artery without angina pectoris; G89.29 Other chronic pain; I25.2 Old myocardial infarction; Z90.49 Acquired absence of other specified parts of digestive tract; Z95.5 Presence of coronary angioplasty implant and graft; E66.01 Morbid (severe) obesity due to excess calories; Z68.43 Body mass index [BMI] 50.0-59.9, adult; Z88.4 Allergy status to anesthetic agent; W18.39XA Other fall on same level, initial encounter; Y93.89 Activity, other specified; Y92.89 Other specified places as the place of occurrence of the external cause; Y99.8 Other external cause status
CPT/HCPCS: 36415; 70450; 71045; 71250; 72125; 74176; 80053; 80307; 81001; 83605; 83735; 83880; 84132; 84484; 85025; 87040; 87086; 93005; 96361; 96374; 96375; 96376; 99291; 99292; J0610; J0696; J1815; J3490; J7030

== ENCOUNTER 2021-08-25 15:25 | Inpatient (IN) | payer MEDICARE ==
[~2021-08-25] VITALS: Ht 188 cm; Wt 178.9 kg
[2021-08-25] VITALS (8 sets, daily range): BP systolic 75–117; BP diastolic 49–68
[~2021-08-25 15:25] MED LIST changes: +DOCU-148 PO; -DOCU-153 PO; +POTA-121 PO; -POTA20TA4 PO; +TIZA-75 PO; -TIZA4TAB2 PO
--- NOTE | 2021-08-25 16:18 | PHYS DOC ---
Past Medical History Past Medical History: CAD, Diabetes-Type II, GERD, High Cholesterol, Heart Disease, Hypertension, ID, Other Additional Past Medical Histor: CHRONIC BACK PAIN, constipation, kidney cancer, SUSANA (MARIBETH RODRIGUEZ APRN) Past Surgical History: Cholecystectomy, Lumbar Laminectomy Additional Past Surgical Histo: cardiac stents, 4 back surgeries,neck surgery, left neprostomy tube (MARIBETH RODRIGUEZ APRN) Smoking Status: Never Smoker Alcohol Use: None Drug Use: None (MARIBETH RODRIGUEZ APRN) General Adult EDM: Chief Complaint: CHEST PAIN HPI: HPI: Patient is a 71-year-old male who presents to the emergency department complaining of chest pain at home while trying to lift self back into recliner. It is reported patient slid out of recliner and had difficulty getting back up into recliner when he noticed some right sided lower chest pain. Patient became worried and called 911. [employer] transport to ED. Patient reports a 7 out of 10 pain. Denies shortness of breath, reports pain to palpation on the right side of chest, increased pain with deep inspiration and expiration. Patient denies shortness of breath or radiation of this pain. Patient denies chest or nasal congestion, denies fever or chills. Reports he has a history of end-stage bladder cancer and is on hospice. Has a nephrostomy tube, has problems with incontinence at home. Denies new physical complaints related to his chronic abdomen pain related to his bladder cancer that he rates at a constant 7 out of 10.. Patient denies other physical complaints or physical concerns. (MARIBETH RODRIGUEZ APRN) Review of Systems: Review of Systems: 14 body systems of review of systems have been reviewed. See HPI for pertinent positives and negative responses, otherwise all other systems are negative, nonpertinent or noncontributory. Constitutional: Negative except as outlined in HPI above. Skin: Negative except as outlined in HPI above. Eyes: Negative except as outlined in HPI above. HENT: Negative except as outlined in HPI above. Respiratory: Negative except as outlined in HPI above. Cardiovascular: Negative except as outlined in HPI above. GI: Negative except as outlined in HPI above. : Negative except as outlined in HPI above. Musculoskeletal: Negative except as outlined in HPI above. Integument: Negative except as outlined in HPI above. Neurologic: Negative except as outlined in HPI above. Endocrine: Negative except as outlined in HPI above. Lymphatic: Negative except as outlined in HPI above. Psychiatric: Negative except as outlined in HPI above. (MARIBETH RODRIGUEZ APRN) Heart Score: C/O Chest Pain: Yes HEART Score for Chest Pain: HEART Score for Chest Pain Response (Comments) Value History Slighlty/Non-Suspicious 0 ECG Normal 0 Age > 65 2 Risk Factors 1 or 2 Risk Factors 1 Troponin < Normal Limit 0 Total 3 Risk Factors: Risk Factors: DM, Current or recent (<one month) smoker, HTN, HLP, family history of CAD, obesity. Risk Scores: Score 0 - 3: 2.5% MACE over next 6 weeks - Discharge Home Score 4 - 6: 20.3% MACE over next 6 weeks - Admit for Clinical Observation Score 7 - 10: 72.7% MACE over next 6 weeks - Early Invasive Strategies (MARIBETH RODRIGUEZ APRN) Allergies: Allergies: Allergies Coded Allergies Type Severity Reaction Last Updated Verified heparin Adverse Reaction Severe 05/31/20 Yes (MARIBETH RODRIGUEZ APRN) Physical Exam: PE: Constitutional: Well developed, well nourished, no acute distress, non-toxic jose miguel earance. 71-year-old male in no apparent distress. Strong smell of urine on patient, patient's clothing urine soaked upon arrival to the emergency department. HENT: Normocephalic, atraumatic. Eyes: Conjunctiva normal, no discharge. Neck: Normal range of motion, no stridor. Cardiovascular: No cyanosis appreciated, distal cap refill less than 2 seconds. Heart sounds S1-S2 to auscultation. Lungs & Thorax: Patient is in no respiratory distress, no audible adventitious lung sounds appreciated. Lung sounds clear to auscultation all lung cardozo, pain to palpation of the anterior thorax right side low just lateral to sternum, no subcu air appreciated, no crepitus appreciated. Increase pain with deep inspiration expiration. Abdomen: Generalized tenderness all 4 quadrants to palpation, morbidly obese, BMI 48.3, has nephrostomy tube on left lateral abdomen. No bruising appreciated. Skin: Warm, dry, no erythema, no rash. Stage I and stage II pressure ulcer to buttocks and coccyx area, no infectious process appreciated. Back: No tenderness, no deformities. Extremities: No tenderness, no cyanosis, no clubbing, ROM intact, no edema. [] Neurologic: Alert and oriented X 3, normal motor function, normal sensory function, no focal deficits noted. Psychologic: Affect normal, judgement normal, mood normal. (MARIBETH RODRIGUEZ APRN) Current Patient Data: Vital Signs: Vital Signs Date Time Temp Pulse Resp B/P (MAP) Pulse Ox O2 Delivery O2 Flow Rate FiO2 08/25/21 15:30 97.7 95 18 121/55 (77) 100 Room Air 97.7 (MARIBETH RODRIGUEZ APRN) EKG: EKG: EKG performed at 1548 by ED nursing staff shows a normal sinus rhythm without other ectopy, heart rate 94 bpm, KS interval 0.182, QTc interval 0.413, no acute STEMI, no ACS, no acute ischemia appreciated, EKG interpreted by ED attending physician Dr. Fagan. (MARIBETH RODRIGUEZ APRN) Radiology/Procedures: Radiology/Procedures: PATIENT: HARPREET HERR ACCOUNT: [id number] : 1950 LOCATION: ER AGE: 71 SEX: M EXAM STATUS: PRE ER ORD. PHYSICIAN: MARIBETH RODRIGUEZ APRN REASON: Chest pain PROCEDURE: CHEST AP ONLY AP chest. HISTORY: Chest pain AP view was taken of the chest. Patient's taken a poor inspiration. Heart is upper normal in size. Thoracic aorta appears prominent and tortuous, more prominent than on the prior study. There is blunting of the right costophrenic angle a small effusion is possible. There is mild haziness in the lungs from vascular congestion or mild interstitial infiltrates or edema. IMPRESSION: 1. Enlarged thoracic aorta mildly more prominent than the old study but the patient's taken a very poor inspiration. 2. Vascular congestion versus interstitial infiltrates. 3. Small right effusion. Electronically signed by: Frandy Castro MD (08/25/2021 5:03 PM) [facility] (MARIBETH RODRIGUEZ APRN) Course & Med Decision Making: Course & Med Decision Making Pertinent Labs and Imaging studies reviewed. (See chart for details) 71-year-old male, vital signs reviewed, resents emergency department concerning chest pain. Patient's physical examination concerning for urosepsis, patient chest pain is reproducible, unlikely cardiac in nature, low likelihood of aortic dissection, patient is in no respiratory distress, nonhypoxic, is not toxic in appearance. Patient is morbidly obese, will order EKG, lactic acid, CBC, CMP, urinalysis assay, troponin I, cardiac enzymes, NT proBNP. Chest x-ray. Patient does have nephrostomy tube however reports he does make urine. Will obtain urine sample from bladder. Patient does report a history of end-stage bladder cancer and is on hospice. Patient does state he is a DO NOT RESUSCITATE. Patient is EKG unremarkable, chest x-ray concerning for torturous aorta, patient does remain nontoxic in appearance, this is a young likely a dissection. Patient's lactic acid is greater than 10, with a leukocytosis and history of bladder cancer with urinary tract infection this is most likely a severe sepsis with urinary tract infection, patient creatinine is 4.0, will add diagnosis of acute kidney injury per patient is slightly hyponatremic, slightly hyperkalemic with potassium of 5.8. Discussed with patient option to be admitted related to patient is a hospice patient. Patient states he would rather go home as this is where he wants to live the end of his life. Patient discussed health with daughter at bedside who is his DPOA, both patient and patient's daughter made a joint decision to be admitted to the hospital. Discussed with patient will consult with inpatient management physician Dr. Islas for admission. Called and discussed patient case and emergency department work-up with inpatient management physician Dr. Islas who agrees patient case warrants admission to the ICU. Dr. Islas reports he will come down to the emergency department soon to examine and manage inpatient care in ICU. Patient is awaiting ICU bed at this time. Related to patient's abnormal chest x-ray with tortuous aorta, ED attending physician Dr. Mckee is aware of and will discuss with inpatient management Dr. Islas decision to CTA chest. (MARIBETH RODRIGUEZ APRN) Course & Med Decision Making I personally saw and examined this patient and supervised the plan of care starting at 1800 when my shift started. The patient is chronically ill, on hospice and appears to have an acute kidney injury. His GFR is 15 and his creatinine is over 4. He complains of chest pain on the right side of his chest and is point tender on the right side of his chest adjacent to the sternum. He does not have any radiation of pain, his pain is typical for musculoskeletal chest pain clinically. His x-ray today is poor inspiratory effort but shows a prominence of the mediastinum. When compared to the previous x-rays where he also has prominence of the mediastinum it does appear slightly larger. Aortic dissection was under consideration. I discussed this with the admitting physician Dr. sIlas. Pathway to obtaining a CT angiogram is complicated because of the patient's decreased renal function, current hospice status, and he appears to be fulminantly septic. He does not appear to clinically to be having a dissection at this time. Dr. Islas called nephrology to ascertain whether emergent dialysis may be obtainable in this patient, Dr. Perrin does not believe the patient is a candidate for emergent dialysis and recommends Lasix and Kayexalate along with a noncontrasted abdominal CT to assess the patient's renal status and evaluate for obstruction. I discussed potentially obtaining a emergent echo with Dr. Islas who is in agreement this may be a good option for this patient given the CTA may be difficult to obtain given his clinical picture. Further care and imaging per Dr. Islas as the patient will be admitted to the ICU in critical condition Critical care time was approximately 45 minutes which includes time at bedside, spent in discussion of patient's care with specialists and/or family members, with interpretation of laboratory and/or radiological studies and is exclusive of procedures. Guicho Mckee DO (GUICHO MCKEE DO) Arsh Disclaimer: Arsh Disclaimer: This electronic medical record was generated, in whole or in part, using a voice recognition dictation system. (MARIBETH RODRIGUEZ APRN) Departure Departure Impression: Primary Impression: Chest pain Qualified Codes: R07.9 - Chest pain, unspecified Additional Impressions: Obesity Qualified Codes: E66.01 - Morbid (severe) obesity due to excess calories; Z68.42 - Body mass index [BMI] 45.0-49.9, adult SONIYA (acute kidney injury) Urinary tract infection Qualified Codes: N39.0 - Urinary tract infection, site not specified; R31.9 - Hematuria, unspecified Severe sepsis Community acquired pneumonia Qualified Codes: J18.9 - Pneumonia, unspecified organism Abnormal chest x-ray Hyperkalemia Leukocytosis Qualified Codes: D72.829 - Elevated white blood cell count, unspecified Bladder cancer Qualified Codes: C67.9 - Malignant neoplasm of bladder, unspecified Hyponatremia Disposition: 09 ADMITTED INPATIENT Admitting Physician: HIMS (Admit to Dr. Islas to ICU) (MARIBETH RODRIGUEZ APRN) Condition: CRITICAL Referrals: Jessica WHITT MD (PCP) MARIBEHT RODRIGUEZ APRN Aug 25, 2021 16:18 GUICHO MCKEE DO Aug 25, 2021 21:23
[2021-08-25 16:36] LABS: BASO % 0 % (0-3); EOS % 0 % (0-3); HEMATOCRIT 38.1 % (39.0-53.0); HEMOGLOBIN 12.2 g/dL (13.0-17.5); LYMPH # 0.3 x10^3/uL (1.0-4.8); LYMPH % 2 % (24-48); MEAN CORPUSCULAR HEMOGLOBIN 29 pg (25-35); MEAN CORPUSCULAR HGB CONC 32 g/dL (31-37); MEAN CORPUSCULAR VOLUME 89 fL (79-100); MONO # 0.7 x10^3/uL (0.0-1.1); MONO % 3 % (0-9); NEUT # 21.3 x10^3/uL (1.8-7.7); NEUT % 95 % (31-73); PLATELET COUNT 209 x10^3/uL (140-400); RED BLOOD COUNT 4.28 x10^6/uL (4.30-5.70); RED CELL DISTRIBUTION WIDTH 21.8 % (11.5-14.5); WHITE BLOOD COUNT 22.4 x10^3/uL (4.0-11.0)
[2021-08-25 17:01] LABS: POTASSIUM 5.8 mmol/L (3.5-5.1)
--- NOTE | 2021-08-25 17:05 | RAD ---
AP chest. HISTORY: Chest pain AP view was taken of the chest. Patient's taken a poor inspiration. Heart is upper normal in size. Th oracic aorta appears prominent and tortuous, more prominent than on the prior study. There is bluntin g of the right costophrenic angle a small effusion is possible. There is mild haziness in the lungs f rom vascular congestion or mild interstitial infiltrates or edema. IMPRESSION: 1. Enlarged thoracic aorta mildly more prominent than the old study but the patient's taken a very po or inspiration. 2. Vascular congestion versus interstitial infiltrates. 3. Small right effusion. Electronically signed by: Frandy Castro MD (08/25/2021 5:03 PM) [facility]
[2021-08-25 17:08] LABS: ALBUMIN 3.1 g/dL (3.4-5.0); ALBUMIN/GLOBULIN RATIO 0.6 (1.0-1.7); TOTAL BILIRUBIN 0.6 mg/dL (0.2-1.0)
[2021-08-25 17:31] LABS: % BANDS 1 % (0-9); % LYMPHS 7 % (24-48); % MONOS 1 % (0-10); % SEGS 91 % (35-66); HYPOCHROMIA MOD; PLT ESTIMATE ADEQUATE (ADEQUATE); TOXIC GRANULATION MOD
[2021-08-25 17:44] LABS: BILIRUBIN,URINE NEGATIVE (NEG); CLARITY,URINE TURBID; COLOR,URINE AMBER; NITRITE,URINE NEGATIVE (NEG); PROTEIN,URINE 30 mg/dL (NEG-TRACE)
[2021-08-25 17:51] LABS: BACTERIA,URINE MODERATE /HPF (0-FEW); WBC,URINE TNTC /HPF (0-4)
[2021-08-25] MEDS ORDERED: levOFLOXacin PER PHARMACY. MC PRN (19:00)
[2021-08-25] MEDS ORDERED: MORPHINE SULFATE 10 MG/ML VIAL. IVP ONE (19:15)
[2021-08-25] MEDS ORDERED: cefTRIAXone IV Push 1 GM VIAL. IVP ONE (19:30)
[2021-08-25] MEDS ORDERED: CALCIUM GLUCONATE 1,000 MG/10 ML VIAL. IVP ONE (19:30)
[2021-08-25] MEDS ORDERED: DEXTROSE 50% 25 GM / 50ML DISP.SYRIN. IV ONE (19:30)
[2021-08-25] MEDS: IV NORMAL SALINE 1000ML BAG 1,000 ML IV SCH (19:34)
[2021-08-25] MEDS ORDERED: INSULIN LISPRO 300 UNITS/3 ML VIAL. SQ ONE (20:00)
[2021-08-25] MEDS ORDERED: FUROSEMIDE 40 MG/4 ML VIAL. IVP ONE (20:00)
[2021-08-25] MEDS ORDERED: SODIUM POLYSTYRENE SULFON/SORB 15 GM/60 ML ORAL.SUSP. PO ONE (20:00)
--- NOTE | 2021-08-25 21:31 | PDOC1 ---
History and Physical Date of Service: DOS: DATE: 08/25/21 TIME: 21:14 Chief Complaint: Problems: (1) Congestive heart failure (CHF) (2) SONIYA (acute kidney injury) (3) Acute renal failure (4) Acute and chronic respiratory failure with hypoxia Chief Complain: Chest pain History of Present Illness: HPI: Patient in the emergency room today due to chest pain. Reports that he slid out of his recliner and noticed that when he was getting a backup his right-sided chest pain. Was worried he called EMS and was brought in the emergency room. Reported 7 out of 10 pain. Was denying any sort of shortness of breath or pain with breathing. Patient has a history of end-stage bladder cancer there is questionable history if he is on hospice or not he really would not give me a clear answer on this. He is a DNR. The family member at bedside really would not give a clear answer on this hospice history either. Of note this is agitation from ER provider medical regarding decision to be admitted "Discussed with patient option to be admitted related to patient is a hospice patient. Patient states he would rather go home as this is where he wants to live the end of his life. Patient discussed health with daughter at bedside who is his DPOA, both patient and patient's daughter made a joint decision to be admitted to the hospital." In the emergency room patient found to have hyperkalemia creatinine around 3 to have lactic acidosis doses up to 10. This x-ray showed enlarged thoracic aorta but based upon the read like this may have been a poor study. Patient has had a history of bladder cancer. Has nephrostomy tube in place. 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 at [facility] Family History: Family History: Reviewed with patient reports history hypertension diabetes Social History: Social History: Denies alcohol tobacco drug use Current Medications: Current Medications Current Medications Sodium Chloride 1,000 ml @ 5,130 mls/hr Q12M IV Last administered on 08/25/21at 19:34; Start 08/25/21 at 19:00; Stop 08/25/21 at 20:00; Status DC Ceftriaxone Sodium (Rocephin) 1 gm 1X ONCE IVP Last administered on 08/25/21at 19:47; Start 08/25/21 at 19:30; Stop 08/25/21 at 19:31; Status DC Levofloxacin/ Dextrose (Levaquin Per Pharmacy) 1 each PRN DAILY PRN MC SEE COMMENTS; Start 08/25/21 at 19:00 Morphine Sulfate (Morphine Sulfate) 5 mg 1X ONCE IVP Last administered on 08/25/21at 19:40; Start 08/25/21 at 19:15; Stop 08/25/21 at 19:16; Status DC Levofloxacin/ Dextrose 100 ml @ 100 mls/hr 1X ONCE IV Last administered on 08/25/21at 19:50; Start 08/25/21 at 19:30; Stop 08/25/21 at 20:29; Status DC Levofloxacin/ Dextrose 50 ml @ 50 mls/hr Q24H IV ; Start 08/26/21 at 21:00 Calcium Gluconate (Calcium Gluconate) 1,000 mg 1X ONCE IVP ; Start 08/25/21 at 19:30; Stop 08/25/21 at 19:31; Status DC Insulin Human Lispro (HumaLOG) 10 units ONCE ONCE SQ ; Start 08/25/21 at 20:00; Stop 08/25/21 at 20:01; Status DC Dextrose (Dextrose 50%-Water Syringe) 25 gm 1X ONCE IV ; Start 08/25/21 at 19:30; Stop 08/25/21 at 19:31; Status DC Sodium Polystyrene Sulfonate (Kayexalate) 15 gm 1X ONCE PO ; Start 08/25/21 at 20:00; Stop 08/25/21 at 20:01; Status DC Furosemide (Lasix) 40 mg 1X ONCE IVP ; Start 08/25/21 at 20:00; Stop 08/25/21 at 20:01; Status DC Allopurinol (Zyloprim) 300 mg DAILY PO ; Start 08/26/21 at 09:00 Aspirin (Ecotrin) 81 mg DAILY PO ; Start 08/26/21 at 09:00 Atorvastatin Calcium (Lipitor) 20 mg HS PO ; Start 08/25/21 at 21:00 Clopidogrel Bisulfate (Plavix) 75 mg DAILY PO ; Start 08/26/21 at 09:00 Fluticasone Propionate (Flonase) 2 spray DAILY NS ; Start 08/26/21 at 09:00 Isosorbide Mononitrate (Imdur) 60 mg DAILY PO ; Start 08/26/21 at 09:00 Pantoprazole Sodium (Protonix) 40 mg DAILYAC PO ; Start 08/26/21 at 07:30 Tamsulosin HCl (Flomax) 0.4 mg HS PO ; Start 08/25/21 at 21:00 Tizanidine HCl (Zanaflex) 4 mg QHS PO ; Start 08/25/21 at 21:00 Cetirizine HCl (ZyrTEC) 10 mg DAILY PO ; Start 08/26/21 at 09:00 Metoprolol Succinate (Toprol Xl) 50 mg DAILY PO ; Start 08/26/21 at 09:00 Active Scripts Active Eliquis (Apixaban) 5 Mg Tablet 5 Mg PO BID 30 Days Hydrocodone-Apap 5-325 (Hydrocodone Bit/Acetaminophen) 1 Tab Tablet 1 Tab PO PRN Q6HRS PRN 5 Days Aspirin Ec (Aspirin) 81 Mg Tablet.dr 1 Tab PO DAILY Reported Flomax (Tamsulosin Hcl) 0.4 Mg Cap.er.24h 1 Cap PO HS Fluticasone Propionate Nasal [place] (Fluticasone Propionate) 16 Gm [place].susp 2 [place] NS DAILY Linzess (Linaclotide) 145 Mcg Capsule 145 Mcg PO 3X/WEEK Fexofenadine Hcl 180 Mg Tablet 1 Tab PO DAILY Vitamin C (Ascorbic Acid) 500 Mg Capsule.er 1,000 Mg PO DAILY One Daily For Men Tablet (Multivits-Minerals/Fa/Lycopene) 1 Each Tablet 1 Tab PO DAILY 30 Days Iron (Ferrous Sulfate) 325 Mg Tablet 65 Mg PO DAILY Allopurinol 300 Mg Tablet 1 Tab PO DAILY Vitamin D2 (Ergocalciferol (Vitamin D2)) 50,000 Unit Capsule 50,000 Unit PO WEEKLY Dose given on the Take on Pantoprazole Sodium (Pantoprazole Sodium) 40 Mg Tablet.dr 1 Tab PO DAILY Gave this morning take tomorrow morning Tizanidine Hcl 4 Mg Tablet 1 Tab PO QHS Gave dose last night Take tonight before bedtime Vascepa (Icosapent Ethyl) 1 Gm Capsule 1 Gm PO Not given on this admission Take as previoulsy instructed Atorvastatin Calcium 20 Mg Tablet 1 Tab PO HS Gave last night Take tonight Clopidogrel (Clopidogrel Bisulfate) 75 Mg Tablet 1 Tab PO DAILY Gave this morning take tomorrow morning Isosorbide Mononitrate Er (Isosorbide Mononitrate) 30 Mg Tab.er.24h 60 Mg PO DAILY Gave this morning take tomorrow morning Repaglinide 1 Mg Tablet 1 Mg PO Not given on this admission Continue as previously instructed Toprol Xl (Metoprolol Succinate) 50 Mg Tab.er.24h 1 Tab PO DAILY Gave this morning take tomorrow morning ROS: Review of Systems Review of System Unless noted in HPI 14 point review systems was negative Physical Exam: Vital Signs: Vital Signs Date Time Temp Pulse Resp B/P (MAP) Pulse Ox O2 Delivery O2 Flow Rate FiO2 08/25/21 19:40 20 98 Room Air 08/25/21 19:30 96 122/71 (88) 08/25/21 15:30 97.7 97.7 Physcial Exam: GEN: Mild distress poor story HEENT: Normal cephalic, atraumatic, external auditory canals are patent EYES: Extraocular muscles are intact, pupil are equally round and reactive to light and accommodation MUSCULOSKELETAL: Obese, limited range of motion ENDOCRINE: No thyromegaly was palpated LYMPHATICS: No cervical chain or axillary nodes were noted HEMATOPOIETIC: No bruising NECK: Supple, no JVD, no thyromegaly was noted LUNGS: Clear to auscultation in all lung cardozo without rhonchi or wheezing HEART: RRR, S1, S2 present. Peripheral pulses intact, no obvious murmurs noted ABDOMEN: Soft, nontender. Positive bowel sounds, no organomegaly, normal bowel sounds EXTREMITIES: Without clubbing, cyanosis, or edema. Pedal pulses intact. NEUROLOGIC: Normal speech and tone. A&O x 3, moves all extremities, no obvious focal deficits PSYCHIATRIC: Normal affect, normal mood. Stable SKIN: No ulcerations or rashes, good skin turgor, no jaundice VASCULAR: Good capillary refill, neurovascular bundle appears to be intact Labs: Labs: Laboratory Tests Test 08/25/21 15:50 08/25/21 17:30 White Blood Count 22.4 x10^3/uL (4.0-11.0) Red Blood Count 4.28 x10^6/uL (4.30-5.70) Hemoglobin 12.2 g/dL (13.0-17.5) Hematocrit 38.1 % (39.0-53.0) Mean Corpuscular Volume 89 fL (79-100) Mean Corpuscular Hemoglobin 29 pg (25-35) Mean Corpuscular Hemoglobin Concent 32 g/dL (31-37) Red Cell Distribution Width 21.8 % (11.5-14.5) Platelet Count 209 x10^3/uL (140-400) Neutrophils (%) (Auto) 95 % (31-73) Lymphocytes (%) (Auto) 2 % (24-48) Monocytes (%) (Auto) 3 % (0-9) Eosinophils (%) (Auto) 0 % (0-3) Basophils (%) (Auto) 0 % (0-3) Neutrophils # (Auto) 21.3 x10^3/uL (1.8-7.7) Lymphocytes # (Auto) 0.3 x10^3/uL (1.0-4.8) Monocytes # (Auto) 0.7 x10^3/uL (0.0-1.1) Eosinophils # (Auto) 0.0 x10^3/uL (0.0-0.7) Basophils # (Auto) 0.0 x10^3/uL (0.0-0.2) Segmented Neutrophils % 91 % (35-66) Band Neutrophils % 1 % (0-9) Lymphocytes % 7 % (24-48) Monocytes % 1 % (0-10) Toxic Granulation Mod Platelet Estimate Adequate (ADEQUATE) Hypochromasia Mod Sodium Level 133 mmol/L (136-145) Potassium Level 5.8 mmol/L (3.5-5.1) Chloride Level 95 mmol/L (98-107) Carbon Dioxide Level 17 mmol/L (21-32) Anion Gap 21 (6-14) Blood Urea Nitrogen 48 mg/dL (8-26) Creatinine 4.0 mg/dL (0.7-1.3) Estimated GFR (Cockcroft-Gault) 15.0 BUN/Creatinine Ratio 12 (6-20) Glucose Level 168 mg/dL (70-99) Lactic Acid Level 10.2 mmol/L (0.4-2.0) Calcium Level 9.0 mg/dL (8.5-10.1) Total Bilirubin 0.6 mg/dL (0.2-1.0) Aspartate Amino Transf (AST/SGOT) 22 U/L (15-37) Alanine Aminotransferase (ALT/SGPT) 26 U/L (16-63) Alkaline Phosphatase 87 U/L (46-116) Creatine Kinase 501 U/L (39-308) Creatine Kinase MB (Mass) 2.4 ng/mL (0.0-3.6) Creatine Kinase MB Relative Index 0.5 % (0-4) Troponin I Quantitative < 0.017 ng/mL (0.000-0.055) WX-Foi-F-Type Natriuretic Peptide 499 pg/mL (0-124) Total Protein 8.0 g/dL (6.4-8.2) Albumin 3.1 g/dL (3.4-5.0) Albumin/Globulin Ratio 0.6 (1.0-1.7) Urine Collection Type Void Urine Color Juanita Urine Clarity Turbid Urine pH 5.0 (<5.0-8.0) Urine Specific [place] 1.015 (1.000-1.030) Urine Protein 30 mg/dL (NEG-TRACE) Urine Glucose (UA) Negative mg/dL (NEG) Urine Ketones (Stick) Negative mg/dL (NEG) Urine Blood Large (NEG) Urine Nitrite Negative (NEG) Urine Bilirubin Negative (NEG) Urine Urobilinogen Dipstick 1.0 mg/dL (0.2 mg/dL) Urine Leukocyte Esterase Large (NEG) Urine RBC 6-10 /HPF (0-2) Urine WBC Tntc /HPF (0-4) Urine Squamous Epithelial Cells Mod /LPF Urine Bacteria Moderate /HPF (0-FEW) Urine Mucus Mod /LPF Laboratory Tests Test 08/25/21 15:50 08/25/21 17:30 White Blood Count 22.4 x10^3/uL (4.0-11.0) Red Blood Count 4.28 x10^6/uL (4.30-5.70) Hemoglobin 12.2 g/dL (13.0-17.5) Hematocrit 38.1 % (39.0-53.0) Mean Corpuscular Volume 89 fL (79-100) Mean Corpuscular Hemoglobin 29 pg (25-35) Mean Corpuscular Hemoglobin Concent 32 g/dL (31-37) Red Cell Distribution Width 21.8 % (11.5-14.5) Platelet Count 209 x10^3/uL (140-400) Neutrophils (%) (Auto) 95 % (31-73) Lymphocytes (%) (Auto) 2 % (24-48) Monocytes (%) (Auto) 3 % (0-9) Eosinophils (%) (Auto) 0 % (0-3) Basophils (%) (Auto) 0 % (0-3) Neutrophils # (Auto) 21.3 x10^3/uL (1.8-7.7) Lymphocytes # (Auto) 0.3 x10^3/uL (1.0-4.8) Monocytes # (Auto) 0.7 x10^3/uL (0.0-1.1) Eosinophils # (Auto) 0.0 x10^3/uL (0.0-0.7) Basophils # (Auto) 0.0 x10^3/uL (0.0-0.2) Segmented Neutrophils % 91 % (35-66) Band Neutrophils % 1 % (0-9) Lymphocytes % 7 % (24-48) Monocytes % 1 % (0-10) Toxic Granulation Mod Platelet Estimate Adequate (ADEQUATE) Hypochromasia Mod Sodium Level 133 mmol/L (136-145) Potassium Level 5.8 mmol/L (3.5-5.1) Chloride Level 95 mmol/L (98-107) Carbon Dioxide Level 17 mmol/L (21-32) Anion Gap 21 (6-14) Blood Urea Nitrogen 48 mg/dL (8-26) Creatinine 4.0 mg/dL (0.7-1.3) Estimated GFR (Cockcroft-Gault) 15.0 BUN/Creatinine Ratio 12 (6-20) Glucose Level 168 mg/dL (70-99) Lactic Acid Level 10.2 mmol/L (0.4-2.0) Calcium Level 9.0 mg/dL (8.5-10.1) Total Bilirubin 0.6 mg/dL (0.2-1.0) Aspartate Amino Transf (AST/SGOT) 22 U/L (15-37) Alanine Aminotransferase (ALT/SGPT) 26 U/L (16-63) Alkaline Phosphatase 87 U/L (46-116) Creatine Kinase 501 U/L (39-308) Creatine Kinase MB (Mass) 2.4 ng/mL (0.0-3.6) Creatine Kinase MB Relative Index 0.5 % (0-4) Troponin I Quantitative < 0.017 ng/mL (0.000-0.055) UM-Cll-I-Type Natriuretic Peptide 499 pg/mL (0-124) Total Protein 8.0 g/dL (6.4-8.2) Albumin 3.1 g/dL (3.4-5.0) Albumin/Globulin Ratio 0.6 (1.0-1.7) Urine Collection Type Void Urine Color Juanita Urine Clarity Turbid Urine pH 5.0 (<5.0-8.0) Urine Specific [place] 1.015 (1.000-1.030) Urine Protein 30 mg/dL (NEG-TRACE) Urine Glucose (UA) Negative mg/dL (NEG) Urine Ketones (Stick) Negative mg/dL (NEG) Urine Blood Large (NEG) Urine Nitrite Negative (NEG) Urine Bilirubin Negative (NEG) Urine Urobilinogen Dipstick 1.0 mg/dL (0.2 mg/dL) Urine Leukocyte Esterase Large (NEG) Urine RBC 6-10 /HPF (0-2) Urine WBC Tntc /HPF (0-4) Urine Squamous Epithelial Cells Mod /LPF Urine Bacteria Moderate /HPF (0-FEW) Urine Mucus Mod /LPF Assessment/Plan Assessment/Plan Stable angina, acute on chronic respiratory failure with hypoxia, acute renal failure, CHF, possible UTI, history end-stage bladder cancer -Patient presenting with chest pain. Cardiac work-up thus far unremarkable normal troponins. EKG unremarkable. -Patient with increasing oxygen requirement -Patient with a notably elevated creatinine on admission. Also multiple electrolyte abnormalities and lactic acidosis. Consulted nephrology discussed with Dr. Perrin on the phone. Recommended a Noncon CT of the abdomen to evaluate for any obstruction given the left-sided neph tube already in place -Patient received Rocephin and Levaquin in the emergency room Levaquin already resumed will continue this -Patient and family member do report history of heart failure echo here in 2019 showing EF around 60%. Either way given presentation will repeat echo and consult cardiology Discussed with patient and family member at bedside for about 20 minutes regarding CODE STATUS and hospice status. They both desired admission for further treatment but would like patient to be a DNR/DNI still. Spent 35 minutes of critical care time on this patient. Justifications for Admission Other Justification TIMA ALFONSO MD Aug 25, 2021 21:31
[2021-08-25 22:33] LABS: BASE EXCESS ABG -7 mmol/L (-3-3); HCO3 ABG 16 mmol/L (21-28); PCO2 ABG 26 mmHg (35-46); PO2 ABG 82 mmHg (65-108); SAT O2 ABG 95 % (92-99)
[2021-08-25 22:36] LABS: FIO2 ABG 21
[2021-08-26] VITALS (27 sets, daily range): BP systolic 54–138; BP diastolic 31–56
--- NOTE | 2021-08-26 00:19 | RAD ---
Examination: CT of the abdomen pelvis without contrast HISTORY: History of renal dysfunction COMPARISON: 03/25/2021 TECHNIQUE: Axial CT images of the abdomen pelvis were performed without contrast. Coronal and sagitta l reformats are performed Exposure: One or more of the following individualized dose reduction techniques were utilized for thi s examination: 1. Automated exposure control 2. Adjustment of the mA and/or kV according to patient size 3. Use of iterative reconstruction technique FINDINGS: Mild bibasilar lung atelectasis. No evidence of free air identified in the abdomen. The evaluation of the solid organs is limited due to lack of IV contrast. The evaluation of bowel is limited due to la ck of oral contrast. The visualized noncontrasted liver, spleen, adrenals grossly appears unremarkabl e. Cholecystectomy changes identified. Examination limited due to artifact. The stomach is mildly distended. The visualized pancreas grossly appears unremarkable. The small katlin l is nondilated. Feces and gas noted in the colon. Left-sided nephrostomy tube is identified. No evid ence of hydronephrosis. There is mild fat stranding identified in the retroperitoneum about the IVC a nd the aortic bifurcation likely blood. Moderate degenerative changes thoracolumbar spine. There is o blique mildly displaced fracture of the L5 vertebral body. IMPRESSION: 1. Mild fat stranding identified in the retroperitoneum about the IVC and the aortic bifurcation lik parul retroperitoneal bleed with oblique mild displaced fracture of the L5 vertebral body.. 2. Left-sided nephrostomy tube is identified. No evidence of hydronephrosis. FOR INTERNAL CODING PURPOSES Critical result: Findings discussed with ER physician at 08/26/2021 12:16 AM. RESULT CODE: (C) Electronically signed by: Haider Gray MD (08/26/2021 12:16 AM) [id number]
[2021-08-26] MEDS: ATORVASTATIN CALCIUM 20 MG TABLET PO SCH ×2 (00:21→20:58)
[2021-08-26] MEDS: TAMSULOSIN 0.4 MG CAP.ER.24H. PO SCH ×2 (00:21→20:58)
[2021-08-26] MEDS: tiZANidine 4 MG TABLET. PO SCH ×2 (00:21→20:59)
--- NOTE | 2021-08-26 01:10 | EKG ---
[facility] [address] [place] [address] Test Date: 2021-08-25 Test Time: 15:48:04 Pat Name: HARPREET HERR Department: Room: 113 1 Gender: M Newborn Hearing Screener: : 1950 Requested By: MARIBETH RODRIGUEZ Order Number: [id number] Reading MD: Daniel Jane MD Measurements Intervals [place] Rate: 94 P: 28 WA: 182 QRS: 43 QRSD: 84 T: 29 QT: 326 QTc: 413 Interpretive Statements SINUS RHYTHM Electronically Signed On 08-26-2021 8:47:49 CDT by Daniel Jane MD
[2021-08-26] MEDS ORDERED: oxyCODONE/APAP 5/325 1 TAB TABLET PO PRN (03:45)
[2021-08-26] MEDS: oxyCODONE/APAP 5/325 1 TAB TABLET PO PRN ×3 (04:12→20:36)
[2021-08-26] MEDS: IV NORMAL SALINE 1000ML BAG 1,000 ML IV SCH ×2 (04:16→06:17)
[2021-08-26] MEDS ORDERED: LIDOCAINE 1% PF 5 ML VIAL. ONE (04:38)
[2021-08-26] MEDS ORDERED: LIDOCAINE 2% PF 5 ML VIAL. ONE ×2 (04:38→07:43)
--- NOTE | 2021-08-26 06:30 | NUR ---
Consults for Dr. Feliciano, Marychuy, and Buck were all called. Talked with Dr. Perrin and Bernadette Sanchez NP (for Dr. Feliciano). Dr. Perrin will see him today and Dr. Feliciano's recommendation was to have Dr. Cooley see the patient. Awaiting a call back from Dr. Jane. Talked with Dr. Islas several times tonight regarding the CT results, hypotension, and pain meds. Order for an AL was received but River Morrison CRNA was unable to get an art line in. He is sending an anesthesiologist to put it in.
[2021-08-26] MEDS: PANTOPRAZOLE 40 MG TABLET.DR. PO SCH (07:30)
--- NOTE | 2021-08-26 08:04 | PDOC ---
[employer] PROGRESS NOTE Date of Service DOS: DATE: 08/26/21 TIME: 07:53 Chief Complaint Chief Complaint Sepsis - with source likely urine Acute cystitis Stable angina Acute on chronic respiratory failure with hypoxia Acute Renal Failure L5 vertebral fracture Retroperitoneal bleed CHF History end-stage bladder cancer -Patient presenting with chest pain. Cardiac work-up thus far unremarkable normal troponins. EKG unremarkable. -Patient with increasing oxygen requirement -Patient with a notably elevated creatinine on admission. Also multiple electrolyte abnormalities and lactic acidosis. Consulted nephrology discussed with Dr. Perrin on the phone. Recommended a Noncon CT of the abdomen to evaluate for any obstruction given the left-sided neph tube already in place -Patient received Rocephin and Levaquin in the emergency room Levaquin already resumed will continue this -Patient and family member do report history of heart failure echo here in 2018 showing EF around 60%. Either way given presentation will repeat echo and consult cardiology History of Present Illness History of Present Illness Patient in the emergency room today due to chest pain. Reports that he slid out of his recliner and noticed that when he was getting a backup his right-sided chest pain. Was worried he called EMS and was brought in the emergency room. Reported 7 out of 10 pain. Was denying any sort of shortness of breath or pain with breathing. Patient has a history of end-stage bladder cancer there is questionable history if he is on hospice or not he really would not give me a clear answer on this. He is a DNR. The family member at bedside really would not give a clear answer on this hospice history either. Of note this is agitation from ER provider medical regarding decision to be admitted "Discussed with patient option to be admitted related to patient is a hospice patient. Patient states he would rather go home as this is where he wants to live the end of his life. Patient discussed health with daughter at bedside who is his DPOA, both patient and patient's daughter made a joint decision to be admitted to the hospital." In the emergency room patient found to have hyperkalemia creatinine around 3 to have lactic acidosis doses up to 10. This x-ray showed enlarged thoracic aorta but based upon the read like this may have been a poor study. Patient has had a history of bladder cancer. Has nephrostomy tube in place. 08/26/2021: Afebrile, currently breathing on BiPAP at the time of my evaluation. CT abdomen/pelvis was obtained yesterday that showed mild fat stranding identified in the retroperitoneum about the IVC and the aortic bifurcation likely retroperitoneal bleed with oblique mild displaced fracture of the L5 vertebral body. Consultation has been placed to neurosurgery and general surgery. Blood cultures positive for gram-negative rods and 3/4 bottles. Continue IV antibiotics and follow urine/blood culture sensitivities. Vitals/I&O Vitals/I&O: Vital Signs Date Time Temp Pulse Resp B/P (MAP) Pulse Ox O2 Delivery O2 Flow Rate FiO2 08/26/21 07:14 100 BiPAP/CPAP 08/26/21 04:12 12 08/26/21 03:00 104 88/49 (62) 08/25/21 21:00 2.0 08/25/21 20:00 98.4 98.4 I & O 08/25/21 08/25/21 08/26/21 15:00 23:00 07:00 Output Total 100 ml Balance -100 ml Physical Exam General: Alert, Cooperative, No acute distress Heart: Regular rate Lungs: Clear Abdomen: Soft, No tenderness Extremities: No cyanosis Skin: No rashes, No breakdown Labs Labs: Laboratory Tests Test 08/25/21 15:50 08/25/21 17:30 08/25/21 20:05 08/25/21 21:45 White Blood Count 22.4 x10^3/uL (4.0-11.0) Red Blood Count 4.28 x10^6/uL (4.30-5.70) Hemoglobin 12.2 g/dL (13.0-17.5) Hematocrit 38.1 % (39.0-53.0) Mean Corpuscular Volume 89 fL (79-100) Mean Corpuscular Hemoglobin 29 pg (25-35) Mean Corpuscular Hemoglobin Concent 32 g/dL (31-37) Red Cell Distribution Width 21.8 % (11.5-14.5) Platelet Count 209 x10^3/uL (140-400) Neutrophils (%) (Auto) 95 % (31-73) Lymphocytes (%) (Auto) 2 % (24-48) Monocytes (%) (Auto) 3 % (0-9) Eosinophils (%) (Auto) 0 % (0-3) Basophils (%) (Auto) 0 % (0-3) Neutrophils # (Auto) 21.3 x10^3/uL (1.8-7.7) Lymphocytes # (Auto) 0.3 x10^3/uL (1.0-4.8) Monocytes # (Auto) 0.7 x10^3/uL (0.0-1.1) Eosinophils # (Auto) 0.0 x10^3/uL (0.0-0.7) Basophils # (Auto) 0.0 x10^3/uL (0.0-0.2) Segmented Neutrophils % 91 % (35-66) Band Neutrophils % 1 % (0-9) Lymphocytes % 7 % (24-48) Monocytes % 1 % (0-10) Toxic Granulation Mod Platelet Estimate Adequate (ADEQUATE) Hypochromasia Mod Sodium Level 133 mmol/L (136-145) Potassium Level 5.8 mmol/L (3.5-5.1) Chloride Level 95 mmol/L (98-107) Carbon Dioxide Level 17 mmol/L (21-32) Anion Gap 21 (6-14) Blood Urea Nitrogen 48 mg/dL (8-26) Creatinine 4.0 mg/dL (0.7-1.3) Estimated GFR (Cockcroft-Gault) 15.0 BUN/Creatinine Ratio 12 (6-20) Glucose Level 168 mg/dL (70-99) Lactic Acid Level 10.2 mmol/L (0.4-2.0) 5.6 mmol/L (0.4-2.0) Calcium Level 9.0 mg/dL (8.5-10.1) Total Bilirubin 0.6 mg/dL (0.2-1.0) Aspartate Amino Transf (AST/SGOT) 22 U/L (15-37) Alanine Aminotransferase (ALT/SGPT) 26 U/L (16-63) Alkaline Phosphatase 87 U/L (46-116) Creatine Kinase 501 U/L (39-308) Creatine Kinase MB (Mass) 2.4 ng/mL (0.0-3.6) Creatine Kinase MB Relative Index 0.5 % (0-4) Troponin I Quantitative < 0.017 ng/mL (0.000-0.055) WF-Lco-X-Type Natriuretic Peptide 499 pg/mL (0-124) Total Protein 8.0 g/dL (6.4-8.2) Albumin 3.1 g/dL (3.4-5.0) Albumin/Globulin Ratio 0.6 (1.0-1.7) Urine Collection Type Void Urine Color Juanita Urine Clarity Turbid Urine pH 5.0 (<5.0-8.0) Urine Specific [place] 1.015 (1.000-1.030) Urine Protein 30 mg/dL (NEG-TRACE) Urine Glucose (UA) Negative mg/dL (NEG) Urine Ketones (Stick) Negative mg/dL (NEG) Urine Blood Large (NEG) Urine Nitrite Negative (NEG) Urine Bilirubin Negative (NEG) Urine Urobilinogen Dipstick 1.0 mg/dL (0.2 mg/dL) Urine Leukocyte Esterase Large (NEG) Urine RBC 6-10 /HPF (0-2) Urine WBC Tntc /HPF (0-4) Urine Squamous Epithelial Cells Mod /LPF Urine Bacteria Moderate /HPF (0-FEW) Urine Mucus Mod /LPF O2 Saturation 95 % (92-99) Arterial Blood pH 7.42 (7.35-7.45) Arterial Blood pCO2 at Patient Temp 26 mmHg (35-46) Arterial Blood pO2 at Patient Temp 82 mmHg (65-108) Arterial Blood HCO3 16 mmol/L (21-28) Arterial Blood Base Excess -7 mmol/L (-3-3) FiO2 21 Assessment and Plan Assessmemt and Plan Problems Medical Problems: (1) Abnormal chest x-ray Status: Acute (2) SONIYA (acute kidney injury) Status: Acute (3) Bladder cancer Status: Acute (4) Chest pain Status: Acute (5) Community acquired pneumonia Status: Acute (6) Hyperkalemia Status: Acute (7) Hyponatremia Status: Acute (8) Leukocytosis Status: Acute (9) Obesity Status: Acute (10) Severe sepsis Status: Acute (11) Urinary tract infection Status: Acute Comment Review of Relevant I have reviewed the following items jm (where applicable) has been applied. Medications: Current Medications Medications (Trade) Dose Ordered Sig/Micah Route PRN Reason Start Time Stop Time Status Last Admin Dose Admin Sodium Chloride 1,000 ml @ 5,130 mls/hr Q12M IV 08/25/21 19:00 08/25/21 20:00 DC 08/26/21 06:17 Ceftriaxone Sodium (Rocephin) 1 gm 1X ONCE IVP 08/25/21 19:30 08/25/21 19:31 DC 08/25/21 19:47 Morphine Sulfate (Morphine Sulfate) 5 mg 1X ONCE IVP 08/25/21 19:15 08/25/21 19:16 DC 08/25/21 19:40 Levofloxacin/ Dextrose 100 ml @ 100 mls/hr 1X ONCE IV 08/25/21 19:30 08/25/21 20:29 DC 08/25/21 19:50 Calcium Gluconate (Calcium Gluconate) 1,000 mg 1X ONCE IVP 08/25/21 19:30 08/25/21 19:31 DC 08/26/21 00:12 Insulin Human Lispro (HumaLOG) 10 units ONCE ONCE SQ 08/25/21 20:00 08/25/21 20:01 DC 08/26/21 00:20 Dextrose (Dextrose 50%-Water Syringe) 25 gm 1X ONCE IV 08/25/21 19:30 08/25/21 19:31 DC 08/26/21 00:11 Sodium Polystyrene Sulfonate (Kayexalate) 15 gm 1X ONCE PO 08/25/21 20:00 08/25/21 20:01 DC 08/26/21 00:21 Furosemide (Lasix) 40 mg 1X ONCE IVP 08/25/21 20:00 08/25/21 20:01 DC 08/26/21 00:12 Atorvastatin Calcium (Lipitor) 20 mg HS PO 08/25/21 21:00 08/26/21 00:21 Tamsulosin HCl (Flomax) 0.4 mg HS PO 08/25/21 21:00 08/26/21 00:21 Tizanidine HCl (Zanaflex) 4 mg QHS PO 08/25/21 21:00 08/26/21 00:21 Oxycodone/ Acetaminophen (Percocet 5/325) 2 tab PRN Q4HRS PRN PO SEVERE PAIN 7-10 08/26/21 04:00 08/26/21 04:12 Justifications for Admission Other Justification JT GARZON MD Aug 26, 2021 08:04
--- NOTE | 2021-08-26 08:08 | PDOC ---
Date of Service: DATE: 08/26/21 TIME: 08:02 Progress Note: Called to ICU [address] an arterial line for hemodynamic monitoring. Pt arousable and alert. Pt instructed on the planned procedure and potential c omplication. Pt agreeable. Site cleansed with chloraprep. Site infiltrated with lidocaine 2% preservative free. Right radial arterial line placed with direct ultrasound guidance. Artery cannulated with 1 attempt. No hematoma noted. Pt tolerated well. Catheter connected to transducer. Waveform arterial and comparable to cuff pressure. Line secured with tegaderm. RN in room com pleted taping. Justifications for Admission Other Justification BETTY MORALES CRNA Aug 26, 2021 08:08
[2021-08-26] MEDS: NOREPINEPHRINE VIAL 8 MG in IV DEXTROSE 5% 250 ML IV PRN ×2 (08:31→16:46)
[2021-08-26] MEDS: CETIRIZINE HCL 10 MG TABLET. PO SCH (09:00)
[2021-08-26] MEDS: FLUTICASONE 50MCG/NASAL SPRAY 16GM BOTTLE. NS SCH (09:00)
[2021-08-26] MEDS ORDERED: ISOSORBIDE MONONITRATE ER 30 MG TAB.ER.24H PO SCH (09:00)
[2021-08-26] MEDS ORDERED: METOPROLOL SUCC 24HR ER 50 MG TAB.ER.24H. PO SCH (09:00)
[2021-08-26] MEDS ORDERED: CLOPIDOGREL BISULFATE 75 MG TABLET PO SCH (09:00)
[2021-08-26] MEDS: ALLOPURINOL 300 MG TABLET. PO SCH (09:00)
[2021-08-26] MEDS ORDERED: ASPIRIN ENTERIC COATED 81 MG TABLET.DR. PO SCH (09:00)
--- NOTE | 2021-08-26 09:30 | PDOC2 ---
LUNA MACIAS [employer] 08/26/21 0930: CARDIAC CONSULT DATE OF CONSULT Date of Consult DATE: 08/26/21 TIME: 09:10 REASON FOR CONSULT Reason for Consult: Chest pain REFERRING PHYSICIAN Referring Physician: Dr. Islas SOURCE Source: Chart review, Patient HISTORY OF PRESENT ILLNESS HISTORY OF PRESENT ILLNESS This is a 71 yo male, with a history of bladder CA on Hospice prior to admission, who presented secondary to right-sided chest and back pain after he slid out of his recliner and strained to get back up. EMS was called. Patient presently denies any chest pain, palpitations, dizziness, diaphoresis, or n ausea/vomiting. Patient presently unable to described the pain he experienced yesterday. Per chart review, pain was worse with deep breathing and was non- radiating . PAST MEDICAL HISTORY Past Medical History Cardiovascular: CAD, HTN, [place], Hyperlipidemia, Other (PVD) Pulmonary: Asthma, Other (SUSANA with bipap) CENTRAL NERVOUS SYSTEM: Periperal neuropathy GI: GERD, Irritable bowel disease, Hernia Heme/Onc: Anemia NOS, bladder CA Hepatobiliary: No pertinent hx Musculoskeletal: low back pain, Osteoarthritis, Other (morbid obesity) Rheumatologic: No pertinent hx Infectious disease: No pertinent hx ENT: Allergic Rhinitis Renal/: UTI Endocrine: Diabetes (2) Dermatology: No pertinent hx PAST SURGICAL HISTORY Past Surgical History [facility] with stent 2013, back surgery, cholecystectomy, Hernia repair FAMILY HISTORY Family History: Heart Disease (father ) SOCIAL HISTORY Smoke: No ALCOHOL: none Drugs: None Lives: with Family CURRENT MEDICATIONS CURRENT MEDICATIONS Current Medications Medications (Trade) Dose Ordered Sig/Micah Route PRN Reason Start Time Stop Time Status Last Admin Dose Admin Sodium Chloride 1,000 ml @ 5,130 mls/hr Q12M IV 08/25/21 19:00 08/25/21 20:00 DC 08/26/21 06:17 Ceftriaxone Sodium (Rocephin) 1 gm 1X ONCE IVP 08/25/21 19:30 08/25/21 19:31 DC 08/25/21 19:47 Morphine Sulfate (Morphine Sulfate) 5 mg 1X ONCE IVP 08/25/21 19:15 08/25/21 19:16 DC 08/25/21 19:40 Levofloxacin/ Dextrose 100 ml @ 100 mls/hr 1X ONCE IV 08/25/21 19:30 08/25/21 20:29 DC 08/25/21 19:50 Calcium Gluconate (Calcium Gluconate) 1,000 mg 1X ONCE IVP 08/25/21 19:30 08/25/21 19:31 DC 08/26/21 00:12 Insulin Human Lispro (HumaLOG) 10 units ONCE ONCE SQ 08/25/21 20:00 08/25/21 20:01 DC 08/26/21 00:20 Dextrose (Dextrose 50%-Water Syringe) 25 gm 1X ONCE IV 08/25/21 19:30 08/25/21 19:31 DC 08/26/21 00:11 Sodium Polystyrene Sulfonate (Kayexalate) 15 gm 1X ONCE PO 08/25/21 20:00 08/25/21 20:01 DC 08/26/21 00:21 Furosemide (Lasix) 40 mg 1X ONCE IVP 08/25/21 20:00 08/25/21 20:01 DC 08/26/21 00:12 Atorvastatin Calcium (Lipitor) 20 mg HS PO 08/25/21 21:00 08/26/21 00:21 Tamsulosin HCl (Flomax) 0.4 mg HS PO 08/25/21 21:00 08/26/21 00:21 Tizanidine HCl (Zanaflex) 4 mg QHS PO 08/25/21 21:00 08/26/21 00:21 Oxycodone/ Acetaminophen (Percocet 5/325) 2 tab PRN Q4HRS PRN PO SEVERE PAIN 7-10 08/26/21 04:00 08/26/21 04:12 Norepinephrine Bitartrate 8 mg/ Dextrose 258 ml @ 33.94 mls/ hr CONT PRN IV PER PROTOCOL 08/26/21 08:30 08/26/21 08:31 ALLERGIES ALLERGIES: Coded Allergies: heparin (Verified Adverse Reaction, Severe, 08/25/21) 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 at [facility] ROS Review of System 14 point ROS conducted with pertinent positives noted above in hPI PHYSICAL EXAM General: Alert, Cooperative, No acute distress HEENT: Atraumatic Lungs: Other (diminished ) Abdomen: Other (left nephrostomy tube, obese ) Extremities: No edema Skin: No significant lesion Neuro: Normal speech, Sensation intact Psych/Mental Status: Other (forgetful ) MUSCULOSKELETAL: Osteoarthritic changes both hands VITALS/I&O VITALS/I&O: Vital Signs Date Time Temp Pulse Resp B/P (MAP) Pulse Ox O2 Delivery O2 Flow Rate FiO2 08/26/21 07:14 100 BiPAP/CPAP 08/26/21 04:12 12 08/26/21 03:00 104 88/49 (62) 08/25/21 21:00 2.0 08/25/21 20:00 98.4 98.4 I & O 08/25/21 08/25/21 08/26/21 15:00 23:00 07:00 Output Total 100 ml Balance -100 ml LABS Lab: Laboratory Tests Test 08/25/21 15:50 08/25/21 17:30 08/25/21 20:05 08/25/21 21:45 White Blood Count 22.4 x10^3/uL (4.0-11.0) H Red Blood Count 4.28 x10^6/uL (4.30-5.70) L Hemoglobin 12.2 g/dL (13.0-17.5) L Hematocrit 38.1 % (39.0-53.0) L Mean Corpuscular Volume 89 fL (79-100) Mean Corpuscular Hemoglobin 29 pg (25-35) Mean Corpuscular Hemoglobin Concent 32 g/dL (31-37) Red Cell Distribution Width 21.8 % (11.5-14.5) H Platelet Count 209 x10^3/uL (140-400) Neutrophils (%) (Auto) 95 % (31-73) H Lymphocytes (%) (Auto) 2 % (24-48) L Monocytes (%) (Auto) 3 % (0-9) Eosinophils (%) (Auto) 0 % (0-3) Basophils (%) (Auto) 0 % (0-3) Neutrophils # (Auto) 21.3 x10^3/uL (1.8-7.7) H Lymphocytes # (Auto) 0.3 x10^3/uL (1.0-4.8) L Monocytes # (Auto) 0.7 x10^3/uL (0.0-1.1) Eosinophils # (Auto) 0.0 x10^3/uL (0.0-0.7) Basophils # (Auto) 0.0 x10^3/uL (0.0-0.2) Segmented Neutrophils % 91 % (35-66) H Band Neutrophils % 1 % (0-9) Lymphocytes % 7 % (24-48) L Monocytes % 1 % (0-10) Toxic Granulation Mod Platelet Estimate Adequate (ADEQUATE) Hypochromasia Mod Sodium Level 133 mmol/L (136-145) L Potassium Level 5.8 mmol/L (3.5-5.1) H Chloride Level 95 mmol/L (98-107) L Carbon Dioxide Level 17 mmol/L (21-32) L Anion Gap 21 (6-14) H Blood Urea Nitrogen 48 mg/dL (8-26) H Creatinine 4.0 mg/dL (0.7-1.3) H Estimated GFR (Cockcroft-Gault) 15.0 BUN/Creatinine Ratio 12 (6-20) Glucose Level 168 mg/dL (70-99) H Lactic Acid Level 10.2 mmol/L (0.4-2.0) *H 5.6 mmol/L (0.4-2.0) *H Calcium Level 9.0 mg/dL (8.5-10.1) Total Bilirubin 0.6 mg/dL (0.2-1.0) Aspartate Amino Transferase (AST) 22 U/L (15-37) Alanine Aminotransferase (ALT) 26 U/L (16-63) Alkaline Phosphatase 87 U/L (46-116) Creatine Kinase 501 U/L (39-308) H Creatine Kinase MB (Mass) 2.4 ng/mL (0.0-3.6) Creatine Kinase MB Relative Index 0.5 % (0-4) Troponin I Quantitative < 0.017 ng/mL (0.000-0.055) NP-Vsr-T-Type Natriuretic Peptide 499 pg/mL (0-124) H Total Protein 8.0 g/dL (6.4-8.2) Albumin 3.1 g/dL (3.4-5.0) L Albumin/Globulin Ratio 0.6 (1.0-1.7) L Urine Collection Type Void Urine Color Juanita Urine Clarity Turbid Urine pH 5.0 (<5.0-8.0) Urine Specific [place] 1.015 (1.000-1.030) Urine Protein 30 mg/dL (NEG-TRACE) Urine Glucose (UA) Negative mg/dL (NEG) Urine Ketones (Stick) Negative mg/dL (NEG) Urine Blood Large (NEG) Urine Nitrite Negative (NEG) Urine Bilirubin Negative (NEG) Urine Urobilinogen Dipstick 1.0 mg/dL (0.2 mg/dL) Urine Leukocyte Esterase Large (NEG) Urine RBC 6-10 /HPF (0-2) Urine WBC Tntc /HPF (0-4) Urine Squamous Epithelial Cells Mod /LPF Urine Bacteria Moderate /HPF (0-FEW) Urine Mucus Mod /LPF O2 Saturation 95 % (92-99) Arterial Blood pH 7.42 (7.35-7.45) Arterial Blood pCO2 at Patient Temp 26 mmHg (35-46) L Arterial Blood pO2 at Patient Temp 82 mmHg (65-108) Arterial Blood HCO3 16 mmol/L (21-28) L Arterial Blood Base Excess -7 mmol/L (-3-3) L FiO2 21 Laboratory Tests 08/25/21 15:50 Laboratory Tests 08/25/21 15:50 ECHOCARDIOGRAM ECHOCARDIOGRAM <Conclusion> The left ventricular systolic function is normal. The Ejection Fraction is 55-60%. There is normal LV segmental wall motion. Trace mitral regurgitation. Trace tricuspid regurgitation with an estimated PAP of 34 mmHg. There is no evidence of significant pericardial effusion. DATE: 02/20/20 1134 Limited echo <Conclusion> Limited echo to assess LV function. The left ventricular systolic function is normal. The Ejection Fraction is 55%. There is normal LV segmental wall motion. There is no evidence of significant pericardial effusion. DATE: 05/17/20 1344 HEART CATH HEART CATH CORONARY ANGIOGRAPHY: LM is a large caliber vessel with normal angiographic appearance. LAD is a large caliber vessel with normal angiographic appearance. D1 is a moderate caliber vessel with mild luminal irregularities. There is a patent proximal stent. LCx is a small caliber non-dominant vessel with mild luminal irregularities. Possible stent in the Lcx. OM1 is a small caliber vessel with an ostial 80% stenosis. Ramus is a small caliber vessel with a proximal 50% stenosis. RCA is a large caliber dominant vessel with distal 80 to 90% stenosis prior to the bifurcation. RPDA is a small caliber vessel with moderate diffuse disease up to 70% RPL is a large-caliber vessel with normal angiographic appearance Interventional technique: This was a complex PCI due to the patient's morbid obesity, difficulty with image intensification and right coronary artery tortuosity. Heparin was used for anticoagulation. The patient was previously on aspirin and Plavix therapy. Through a 6 [place] JR4 guide catheter a 0.014 inch pro-water wire was used to cross the distal RCA lesion. Next balloon angioplasty was performed with a 3.0 x 15 mm balloon and the lesion was then stented with a 4.0 x 23 mm Shireen drug- eluting stent. This was dilated at 14 fina. Intracoronary nitroglycerin was administered and there was excellent stent expansion with YING-3 flow in the vessel. No guide or wire related complications were noted. The RPDA was felt to be small in caliber and diffusely diseased without evidence of brisk outflow and therefore further intervention was deferred. YING Flow YING Flow (Pre-Intervention): YING-3 YING Flow (Post-Intervention): YING-3 Conclusion 1. Normal left-sided filling pressures 2. Successful complex PCI of the RCA with implantation of a Shireen 4.0 x 23 mm drug-eluting stent 3. Patent stents in the LCx and 1st diagonal Recommendations ASA 81mg daily Plavix 75mg daily High dose statin therapy DATE: 05/17/20 1420 ASSESSMENT/PLAN ASSESSMENT/PLAN 1. Acute on chronic respiratory failure 2. Mild acute on chronic diastolic CHF; Echo 05/21 with preserved LV systolic function. s/p diuresis 3. Chest pain, atypical; initial trop negative 4. CAD; s/p previous PCI/stents to the LCx and 1st diagonal. s/p PCI/JOELLE to the RCA 05/17/20. 5. L5 vertebral body fracture with suspected retroperitoneal bleed. neurosurgery consulted 6. Leukocytosis, lactic acidosis, sepsis, shock 7. UTI, bacteremia; BC with GNR 8. SONIYA on CKD, hyperkalemia 9. End-stage bladder CA, left nephrostomy tube. on Hospice prior to arrival 10. Hypertension; controlled 11. Hyperlipiemia; statin 12. Diabetes, II 13. Morbid obesity, SUSANA: uses bipap 14. H/o DVT; on OAC. Recommendations Trend trop Will need to clarify med list (med rec with ASA, Plavix, and Eliquis. [facility] records 06/22 indicate warfarin therapy). Will check INR Secondary prevention as able No antiplatelet or anticoagulation therapy with suspected retroperitoneal bleed Hold metoprolol and Imdur with hypotension Pressor support as warranted Will hold further diuresis with SONIYA. Avoid nephrotoxins. follow nephrology recs Ongoing treatment of bacteremia, sepsis Conservative measures from a CV standpoint. STERLING CLARK MD 08/27/21 1153: CARDIAC CONSULT ASSESSMENT/PLAN ASSESSMENT/PLAN Patient seen and examined 08/26/2021. Agree with P[employer]ERHANGER PIPE's assessment and plan. Chest pain with atypical features. Myocardial infarction has been ruled out. CAD status clinically stable. Acute on chronic diastolic heart failure better compensated. Continue antibiotics for sepsis per ID team Wean pressors off as tolerated Thank you for your consultation LUNA MACIAS APRN Aug 26, 2021 09:30 STERLING CLARK MD Aug 27, 2021 11:53
--- NOTE | 2021-08-26 09:36 | PDOC2 ---
CONSULT Date of Consult Date of Consult DATE: 08/26/21 TIME: 09:27 Reason for Consult Reason for Consult: SONIYA, HyperKalemia Source Source: Chart review History of Present Illness Reason for Visit: Patient is a 71 yo CM with c/o right-sided chest pain at home, reports that he slid out of his recliner and noticed that when he was getting a backup . He called EMS and was brought in the emergency room. He reported pain was 7 out of 10 , not associated with shortness of breath . He has a history of end-stage bladder cancer with questionable history if he is on hospice . He is a DNR. He reports he was Dx late 2019 and was following with Dr. Farias . He has Left nephrostomy tube in place He was placed on BiPAP at presentation, currently on O2 by CT . Labs at presnetation on 08/25 @ approx 1500 with Cr 4.0 and K of 5.8 . EKG was unremarkable . Neph was paged with recommendations to start IVF and CT scan Abdomen to r/o Obstructive etiology Repeat labs drawn drawn at 10am today - improvement in K and stable renal function Denies any N/V/D. No F/C . He states he did notice cloudy/Reddish urine when he voided and in the nag as well for the past few days. Denies taking any NSAID's . Denies any LE edema Past Medical History Cardiovascular: CAD, HTN, [place], Hyperlipidemia, Other Pulmonary: Asthma, Other CENTRAL NERVOUS SYSTEM: Periperal neuropathy GI: GERD, Irritable bowel disease Heme/Onc: Anemia NOS Hepatobiliary: No pertinent hx Psych: Addictions Musculoskeletal: low back pain, Osteoarthritis, Other Rheumatologic: No pertinent hx Infectious disease: No pertinent hx Renal/: UTI Endocrine: Diabetes Past Surgical History Past Surgical History: Cholecystectomy, Tonsillectomy, Other Family History Family History: Coronary Artery Disease Social History ALCOHOL: none Drugs: None Lives: Intermediate Current Problem List Problem List Problems Medical Problems: (1) Abnormal chest x-ray Status: Acute (2) SONIYA (acute kidney injury) Status: Acute (3) Bladder cancer Status: Acute (4) Chest pain Status: Acute (5) Community acquired pneumonia Status: Acute (6) Hyperkalemia Status: Acute (7) Hyponatremia Status: Acute (8) Leukocytosis Status: Acute (9) Obesity Status: Acute (10) Severe sepsis Status: Acute (11) Urinary tract infection Status: Acute Current Medications Current Medications Current Medications Sodium Chloride 1,000 ml @ 5,130 mls/hr Q12M IV Last administered on 08/26/21at 06:17; Start 08/25/21 at 19:00; Stop 08/25/21 at 20:00; Status DC Ceftriaxone Sodium (Rocephin) 1 gm 1X ONCE IVP Last administered on 08/25/21at 19:47; Start 08/25/21 at 19:30; Stop 08/25/21 at 19:31; Status DC Levofloxacin/ Dextrose (Levaquin Per Pharmacy) 1 each PRN DAILY PRN MC SEE COMMENTS; Start 08/25/21 at 19:00 Morphine Sulfate (Morphine Sulfate) 5 mg 1X ONCE IVP Last administered on 08/25/21at 19:40; Start 08/25/21 at 19:15; Stop 08/25/21 at 19:16; Status DC Levofloxacin/ Dextrose 100 ml @ 100 mls/hr 1X ONCE IV Last administered on 08/25/21at 19:50; Start 08/25/21 at 19:30; Stop 08/25/21 at 20:29; Status DC Levofloxacin/ Dextrose 50 ml @ 50 mls/hr Q24H IV ; Start 08/26/21 at 21:00 Calcium Gluconate (Calcium Gluconate) 1,000 mg 1X ONCE IVP Last administered on 08/26/21at 00:12; Start 08/25/21 at 19:30; Stop 08/25/21 at 19:31; Status DC Insulin Human Lispro (HumaLOG) 10 units ONCE ONCE SQ Last administered on 08/26/21at 00:20; Start 08/25/21 at 20:00; Stop 08/25/21 at 20:01; Status DC Dextrose (Dextrose 50%-Water Syringe) 25 gm 1X ONCE IV Last administered on 08/26/21at 00:11; Start 08/25/21 at 19:30; Stop 08/25/21 at 19:31; Status DC Sodium Polystyrene Sulfonate (Kayexalate) 15 gm 1X ONCE PO Last administered on 08/26/21at 00:21; Start 08/25/21 at 20:00; Stop 08/25/21 at 20:01; Status DC Furosemide (Lasix) 40 mg 1X ONCE IVP Last administered on 08/26/21at 00:12; Start 08/25/21 at 20:00; Stop 08/25/21 at 20:01; Status DC Allopurinol (Zyloprim) 300 mg DAILY PO ; Start 08/26/21 at 09:00 Aspirin (Ecotrin) 81 mg DAILY PO ; Start 08/26/21 at 09:00 Atorvastatin Calcium (Lipitor) 20 mg HS PO Last administered on 08/26/21at 00:21; Start 08/25/21 at 21:00 Clopidogrel Bisulfate (Plavix) 75 mg DAILY PO ; Start 08/26/21 at 09:00 Fluticasone Propionate (Flonase) 2 spray DAILY NS ; Start 08/26/21 at 09:00 Isosorbide Mononitrate (Imdur) 60 mg DAILY PO ; Start 08/26/21 at 09:00 Pantoprazole Sodium (Protonix) 40 mg DAILYAC PO ; Start 08/26/21 at 07:30 Tamsulosin HCl (Flomax) 0.4 mg HS PO Last administered on 08/26/21at 00:21; Start 08/25/21 at 21:00 Tizanidine HCl (Zanaflex) 4 mg QHS PO Last administered on 08/26/21at 00:21; Start 08/25/21 at 21:00 Cetirizine HCl (ZyrTEC) 10 mg DAILY PO ; Start 08/26/21 at 09:00 Metoprolol Succinate (Toprol Xl) 50 mg DAILY PO ; Start 08/26/21 at 09:00 Oxycodone/ Acetaminophen (Percocet 5/325) 1 tab PRN Q4HRS PRN PO MODERATE PAIN 4-6; Start 08/26/21 at 03:45 Oxycodone/ Acetaminophen (Percocet 5/325) 2 tab PRN Q4HRS PRN PO SEVERE PAIN 7- 10 Last administered on 08/26/21at 04:12; Start 08/26/21 at 04:00 Lidocaine HCl (Xylocaine-Mpf 1% 5ml Vial) 5 ml STK-MED ONCE .ROUTE ; Start 08/26/21 at 04:38; Stop 08/26/21 at 04:38; Status DC Lidocaine HCl (Lidocaine Pf 2% Vial) 5 ml STK-MED ONCE .ROUTE ; Start 08/26/21 at 04:38; Stop 08/26/21 at 04:39; Status DC Lidocaine HCl (Lidocaine Pf 2% Vial) 5 ml STK-MED ONCE .ROUTE ; Start 08/26/21 at 07:43; Stop 08/26/21 at 07:43; Status DC Norepinephrine Bitartrate 8 mg/ Dextrose 258 ml @ 33.94 mls/ hr CONT PRN IV PER PROTOCOL Last administered on 08/26/21at 08:31; Start 08/26/21 at 08:30 Active Scripts Active Eliquis (Apixaban) 5 Mg Tablet 5 Mg PO BID 30 Days Hydrocodone-Apap 5-325 (Hydrocodone Bit/Acetaminophen) 1 Tab Tablet 1 Tab PO PRN Q6HRS PRN 5 Days Aspirin Ec (Aspirin) 81 Mg Tablet.dr 1 Tab PO DAILY Reported Flomax (Tamsulosin Hcl) 0.4 Mg Cap.er.24h 1 Cap PO HS Fluticasone Propionate Nasal Mccamey (Fluticasone Propionate) 16 Gm Mccamey.susp 2 Mccamey NS DAILY Linzess (Linaclotide) 145 Mcg Capsule 145 Mcg PO 3X/WEEK Fexofenadine Hcl 180 Mg Tablet 1 Tab PO DAILY Vitamin C (Ascorbic Acid) 500 Mg Capsule.er 1,000 Mg PO DAILY One Daily For Men Tablet (Multivits-Minerals/Fa/Lycopene) 1 Each Tablet 1 Tab PO DAILY 30 Days Iron (Ferrous Sulfate) 325 Mg Tablet 65 Mg PO DAILY Allopurinol 300 Mg Tablet 1 Tab PO DAILY Vitamin D2 (Ergocalciferol (Vitamin D2)) 50,000 Unit Capsule 50,000 Unit PO WEEKLY Dose given on the Take on Pantoprazole Sodium (Pantoprazole Sodium) 40 Mg Tablet.dr 1 Tab PO DAILY Gave this morning take tomorrow morning Tizanidine Hcl 4 Mg Tablet 1 Tab PO QHS Gave dose last night Take tonight before bedtime Vascepa (Icosapent Ethyl) 1 Gm Capsule 1 Gm PO Not given on this admission Take as previoulsy instructed Atorvastatin Calcium 20 Mg Tablet 1 Tab PO HS Gave last night Take tonight Clopidogrel (Clopidogrel Bisulfate) 75 Mg Tablet 1 Tab PO DAILY Gave this morning take tomorrow morning Isosorbide Mononitrate Er (Isosorbide Mononitrate) 30 Mg Tab.er.24h 60 Mg PO DAILY Gave this morning take tomorrow morning Repaglinide 1 Mg Tablet 1 Mg PO Not given on this admission Continue as previously instructed Toprol Xl (Metoprolol Succinate) 50 Mg Tab.er.24h 1 Tab PO DAILY Gave this morning take tomorrow morning Allergies Allergies: Coded Allergies: heparin (Verified Adverse Reaction, Severe, 08/25/21) 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 at [facility] ROS Review of System As per HPI, rest of the ROS is negative Physical Exam Physical Exam General NAD , propped up in bed HEEN OM dry, oN o2 by NC, Anicteric Neck Supple Lungs Decreased at bases, Non labored CV S1S2 Abdo Obese , NT, BS + Neuro Grossly normal , No focal deficit Left Nephrostomy chronic ; Has Tai as well currently Derm No Rash Psych appears depressed , AXOx 3 Ext No LE edema , changes ov CVI + Vital Signs Vital Signs Date Time Temp Pulse Resp B/P (MAP) Pulse Ox O2 Delivery O2 Flow Rate FiO2 08/26/21 07:14 100 BiPAP/CPAP 08/26/21 04:12 12 08/26/21 03:00 104 88/49 (62) 08/25/21 21:00 2.0 08/25/21 20:00 98.4 98.4 Assessment & Plan SONIYA- ATN 2/2 Sepsis / Hypotensive - Received IV NS , currently on pressor support . Had Discussion with patient about INSURANCE CONSULTANT (CRRT ), he wants to hold off for now. Recommend Bicarb Gtt , Monitor I/O, avoid Nephrotoxins . Monitor . Dw patient and nursing Sepsis / Urosepsis /Lactic Acidosis /Hypotensive - Blood cultures positive for gram-negative rods and 3/4 bottles. HyperKalemia POA- Resolved CKD stage 3 B- Creat baseline 1.4-1.7 . Increased Creat in March 2021 . Has Lt Nephrostomy Acute on chronic respiratory failure with hypoxia- On BiPAP/CPAP Hx of end-stage Bladder cancer . Has Lt Nephrostomy , No Hydronephrosis on CT scan Retroperitoneal bleed suspected on Ct about the IVC and the aortic bifurcation Mild displaced fracture of the L5 vertebral body.. Acute on chronic respiratory failure - Currently on o2 by NC Chronic diastolic CHF; Echo 05/21 with preserved LV systolic function Chest pain, atypical; initial trop negative CAD; s/p previous PCI/stents to the LCx and 1st diagonal. s/p PCI/JOELLE to the RCA 05/17/20. Hypertension BP low, On Pressor support Diabetes, II Morbid obesity, SUSANA: uses bipap Labs Labs Laboratory Tests Test 08/25/21 15:50 08/25/21 17:30 08/25/21 20:05 08/25/21 21:45 White Blood Count 22.4 x10^3/uL (4.0-11.0) Red Blood Count 4.28 x10^6/uL (4.30-5.70) Hemoglobin 12.2 g/dL (13.0-17.5) Hematocrit 38.1 % (39.0-53.0) Mean Corpuscular Volume 89 fL (79-100) Mean Corpuscular Hemoglobin 29 pg (25-35) Mean Corpuscular Hemoglobin Concent 32 g/dL (31-37) Red Cell Distribution Width 21.8 % (11.5-14.5) Platelet Count 209 x10^3/uL (140-400) Neutrophils (%) (Auto) 95 % (31-73) Lymphocytes (%) (Auto) 2 % (24-48) Monocytes (%) (Auto) 3 % (0-9) Eosinophils (%) (Auto) 0 % (0-3) Basophils (%) (Auto) 0 % (0-3) Neutrophils # (Auto) 21.3 x10^3/uL (1.8-7.7) Lymphocytes # (Auto) 0.3 x10^3/uL (1.0-4.8) Monocytes # (Auto) 0.7 x10^3/uL (0.0-1.1) Eosinophils # (Auto) 0.0 x10^3/uL (0.0-0.7) Basophils # (Auto) 0.0 x10^3/uL (0.0-0.2) Segmented Neutrophils % 91 % (35-66) Band Neutrophils % 1 % (0-9) Lymphocytes % 7 % (24-48) Monocytes % 1 % (0-10) Toxic Granulation Mod Platelet Estimate Adequate (ADEQUATE) Hypochromasia Mod Sodium Level 133 mmol/L (136-145) Potassium Level 5.8 mmol/L (3.5-5.1) Chloride Level 95 mmol/L (98-107) Carbon Dioxide Level 17 mmol/L (21-32) Anion Gap 21 (6-14) Blood Urea Nitrogen 48 mg/dL (8-26) Creatinine 4.0 mg/dL (0.7-1.3) Estimated GFR (Cockcroft-Gault) 15.0 BUN/Creatinine Ratio 12 (6-20) Glucose Level 168 mg/dL (70-99) Lactic Acid Level 10.2 mmol/L (0.4-2.0) 5.6 mmol/L (0.4-2.0) Calcium Level 9.0 mg/dL (8.5-10.1) Total Bilirubin 0.6 mg/dL (0.2-1.0) Aspartate Amino Transf (AST/SGOT) 22 U/L (15-37) Alanine Aminotransferase (ALT/SGPT) 26 U/L (16-63) Alkaline Phosphatase 87 U/L (46-116) Creatine Kinase 501 U/L (39-308) Creatine Kinase MB (Mass) 2.4 ng/mL (0.0-3.6) Creatine Kinase MB Relative Index 0.5 % (0-4) Troponin I Quantitative < 0.017 ng/mL (0.000-0.055) QQ-Pmx-O-Type Natriuretic Peptide 499 pg/mL (0-124) Total Protein 8.0 g/dL (6.4-8.2) Albumin 3.1 g/dL (3.4-5.0) Albumin/Globulin Ratio 0.6 (1.0-1.7) Urine Collection Type Void Urine Color Juanita Urine Clarity Turbid Urine pH 5.0 (<5.0-8.0) Urine Specific Keno 1.015 (1.000-1.030) Urine Protein 30 mg/dL (NEG-TRACE) Urine Glucose (UA) Negative mg/dL (NEG) Urine Ketones (Stick) Negative mg/dL (NEG) Urine Blood Large (NEG) Urine Nitrite Negative (NEG) Urine Bilirubin Negative (NEG) Urine Urobilinogen Dipstick 1.0 mg/dL (0.2 mg/dL) Urine Leukocyte Esterase Large (NEG) Urine RBC 6-10 /HPF (0-2) Urine WBC Tntc /HPF (0-4) Urine Squamous Epithelial Cells Mod /LPF Urine Bacteria Moderate /HPF (0-FEW) Urine Mucus Mod /LPF O2 Saturation 95 % (92-99) Arterial Blood pH 7.42 (7.35-7.45) Arterial Blood pCO2 at Patient Temp 26 mmHg (35-46) Arterial Blood pO2 at Patient Temp 82 mmHg (65-108) Arterial Blood HCO3 16 mmol/L (21-28) Arterial Blood Base Excess -7 mmol/L (-3-3) FiO2 21 Laboratory Tests Test 08/25/21 15:50 08/25/21 17:30 08/25/21 20:05 08/25/21 21:45 White Blood Count 22.4 x10^3/uL (4.0-11.0) Red Blood Count 4.28 x10^6/uL (4.30-5.70) Hemoglobin 12.2 g/dL (13.0-17.5) Hematocrit 38.1 % (39.0-53.0) Mean Corpuscular Volume 89 fL (79-100) Mean Corpuscular Hemoglobin 29 pg (25-35) Mean Corpuscular Hemoglobin Concent 32 g/dL (31-37) Red Cell Distribution Width 21.8 % (11.5-14.5) Platelet Count 209 x10^3/uL (140-400) Neutrophils (%) (Auto) 95 % (31-73) Lymphocytes (%) (Auto) 2 % (24-48) Monocytes (%) (Auto) 3 % (0-9) Eosinophils (%) (Auto) 0 % (0-3) Basophils (%) (Auto) 0 % (0-3) Neutrophils # (Auto) 21.3 x10^3/uL (1.8-7.7) Lymphocytes # (Auto) 0.3 x10^3/uL (1.0-4.8) Monocytes # (Auto) 0.7 x10^3/uL (0.0-1.1) Eosinophils # (Auto) 0.0 x10^3/uL (0.0-0.7) Basophils # (Auto) 0.0 x10^3/uL (0.0-0.2) Segmented Neutrophils % 91 % (35-66) Band Neutrophils % 1 % (0-9) Lymphocytes % 7 % (24-48) Monocytes % 1 % (0-10) Toxic Granulation Mod Platelet Estimate Adequate (ADEQUATE) Hypochromasia Mod Sodium Level 133 mmol/L (136-145) Potassium Level 5.8 mmol/L (3.5-5.1) Chloride Level 95 mmol/L (98-107) Carbon Dioxide Level 17 mmol/L (21-32) Anion Gap 21 (6-14) Blood Urea Nitrogen 48 mg/dL (8-26) Creatinine 4.0 mg/dL (0.7-1.3) Estimated GFR (Cockcroft-Gault) 15.0 BUN/Creatinine Ratio 12 (6-20) Glucose Level 168 mg/dL (70-99) Lactic Acid Level 10.2 mmol/L (0.4-2.0) 5.6 mmol/L (0.4-2.0) Calcium Level 9.0 mg/dL (8.5-10.1) Total Bilirubin 0.6 mg/dL (0.2-1.0) Aspartate Amino Transf (AST/SGOT) 22 U/L (15-37) Alanine Aminotransferase (ALT/SGPT) 26 U/L (16-63) Alkaline Phosphatase 87 U/L (46-116) Creatine Kinase 501 U/L (39-308) Creatine Kinase MB (Mass) 2.4 ng/mL (0.0-3.6) Creatine Kinase MB Relative Index 0.5 % (0-4) Troponin I Quantitative < 0.017 ng/mL (0.000-0.055) WE-Hua-M-Type Natriuretic Peptide 499 pg/mL (0-124) Total Protein 8.0 g/dL (6.4-8.2) Albumin 3.1 g/dL (3.4-5.0) Albumin/Globulin Ratio 0.6 (1.0-1.7) Urine Collection Type Void Urine Color Juanita Urine Clarity Turbid Urine pH 5.0 (<5.0-8.0) Urine Specific Keno 1.015 (1.000-1.030) Urine Protein 30 mg/dL (NEG-TRACE) Urine Glucose (UA) Negative mg/dL (NEG) Urine Ketones (Stick) Negative mg/dL (NEG) Urine Blood Large (NEG) Urine Nitrite Negative (NEG) Urine Bilirubin Negative (NEG) Urine Urobilinogen Dipstick 1.0 mg/dL (0.2 mg/dL) Urine Leukocyte Esterase Large (NEG) Urine RBC 6-10 /HPF (0-2) Urine WBC Tntc /HPF (0-4) Urine Squamous Epithelial Cells Mod /LPF Urine Bacteria Moderate /HPF (0-FEW) Urine Mucus Mod /LPF O2 Saturation 95 % (92-99) Arterial Blood pH 7.42 (7.35-7.45) Arterial Blood pCO2 at Patient Temp 26 mmHg (35-46) Arterial Blood pO2 at Patient Temp 82 mmHg (65-108) Arterial Blood HCO3 16 mmol/L (21-28) Arterial Blood Base Excess -7 mmol/L (-3-3) FiO2 21 Review All relevant outside records, renal labs, imaging studies, telemetry/EKG's were reviewed. Images Images ROCEDURE: CT ABDOMEN PELVIS WO CONTRAST Examination: CT of the abdomen pelvis without contrast HISTORY: History of renal dysfunction COMPARISON: 03/25/2021 TECHNIQUE: Axial CT images of the abdomen pelvis were performed without contrast. Coronal and sagittal reformats are performed Exposure: One or more of the following individualized dose reduction techniques were utilized for this examination: 1. Automated exposure control 2. Adjustment of the mA and/or kV according to patient size 3. Use of iterative reconstruction technique FINDINGS: Mild bibasilar lung atelectasis. No evidence of free air identified in the abdomen. The evaluation of the solid organs is limited due to lack of IV contrast. The evaluation of bowel is limited due to lack of oral contrast. The visualized noncontrasted liver, spleen, adrenals grossly appears unremarkable. Cholecystectomy changes identified. Examination limited due to artifact. The stomach is mildly distended. The visualized pancreas grossly appears unremarkable. The small bowel is nondilated. Feces and gas noted in the colon. Left-sided nephrostomy tube is identified. No evidence of hydronephrosis. There is mild fat stranding identified in the retroperitoneum about the IVC and the aortic bifurcation likely blood. Moderate degenerative changes thoracolumbar spine. There is oblique mildly displaced fracture of the L5 vertebral body. IMPRESSION: 1. Mild fat stranding identified in the retroperitoneum about the IVC and the aortic bifurcation likely retroperitoneal bleed with oblique mild displaced fracture of the L5 vertebral body.. 2. Left-sided nephrostomy tube is identified. No evidence of hydronephrosis. HISTORY: Chest pain AP view was taken of the chest. Patient's taken a poor inspiration. Heart is upper normal in size. Thoracic aorta appears prominent and tortuous, more promi nent than on the prior study. There is blunting of the right costophrenic angle a small effusion is possible. There is mild haziness in the lungs from vascular congestion or mild interstitial infiltrates or edema. IMPRESSION: 1. Enlarged thoracic aorta mildly more prominent than the old study but the patient's taken a very poor inspiration. 2. Vascular congestion versus interstitial infiltrates. 3. Small right effusion. NORIS SARMIENTO MD Aug 26, 2021 09:36
[2021-08-26] MEDS ORDERED: PERFLUTREN PROTEIN-A MICROSPHR 0.22 MG/ML 3 ML VIAL. IV ONE ×2 (09:42→10:00)
[2021-08-26] MEDS: PIPERACILLIN/TAZOBACTAM 3.375 GM in IV NORMAL SALINE 50ML 50 ML IV SCH ×2 (10:21→18:00)
[2021-08-26 10:38] LABS: BASO % 0 % (0-3); EOS % 0 % (0-3); HEMATOCRIT 33.1 % (39.0-53.0); HEMOGLOBIN 10.5 g/dL (13.0-17.5); LYMPH # 0.7 x10^3/uL (1.0-4.8); LYMPH % 4 % (24-48); MEAN CORPUSCULAR HEMOGLOBIN 28 pg (25-35); MEAN CORPUSCULAR HGB CONC 32 g/dL (31-37); MEAN CORPUSCULAR VOLUME 87 fL (79-100); MONO % 6 % (0-9); NEUT # 14.9 x10^3/uL (1.8-7.7); NEUT % 90 % (31-73); PLATELET COUNT 194 x10^3/uL (140-400); RED BLOOD COUNT 3.79 x10^6/uL (4.30-5.70); RED CELL DISTRIBUTION WIDTH 21.7 % (11.5-14.5); WHITE BLOOD COUNT 16.7 x10^3/uL (4.0-11.0)
[2021-08-26 10:49] LABS: CALCIUM 8.1 mg/dL (8.5-10.1); CREATININE 4.1 mg/dL (0.7-1.3); GFR 14.5; POTASSIUM 4.9 mmol/L (3.5-5.1)
[2021-08-26 10:55] LABS: CHOLESTEROL/HDL RATIO 8.1
--- NOTE | 2021-08-26 11:19 | NUR ---
SS following for discharge planning. SS reviewed pt chart and discussed with pt RN. Pt is currently on BIPAP at 30%. ART line in place. Pt on IV Levaquin, IV Zosyn, and Levophed. Cardiology and Nephrology consulted. DNR. Pt is current on services with [facility], , fax [phone]. Pt's daughter is DPOA. SS will continue to follow for discharge planning.
--- NOTE | 2021-08-26 14:12 | PDOC2 ---
CONSULT Date of Consult Date of Consult DATE: 08/26/21 TIME: 14:05 Reason for Consult Reason for Consult: retropitoneal bleed Referring Physician Referring Physician: Dr Islas Identification/Chief Complaint Chief Complaint pain Source Source: Chart review, Patient History of Present Illness Reason for Visit: Fall from recliner, chest pain. Significant medical hx. End stage bladder cancer on hospice Concern retroperitoneal bleed-he is on eliquis and plavix Urosepsis concern L 5 fracture Past Medical History Cardiovascular: CAD, HTN, NH, Hyperlipidemia, Other Pulmonary: Asthma, Other CENTRAL NERVOUS SYSTEM: Periperal neuropathy GI: GERD, Irritable bowel disease Heme/Onc: Anemia NOS Hepatobiliary: No pertinent hx Psych: Addictions Musculoskeletal: low back pain, Osteoarthritis, Other Rheumatologic: No pertinent hx Infectious disease: No pertinent hx Renal/: UTI Endocrine: Diabetes Past Surgical History Past Surgical History: Cholecystectomy, Tonsillectomy, Other (neph tube) Family History Family History: Heart Disease (father ) Social History No ALCOHOL: none Drugs: None Lives: with Family Current Problem List Problem List Problems Medical Problems: (1) Abnormal chest x-ray Status: Acute (2) SONIYA (acute kidney injury) Status: Acute (3) Bladder cancer Status: Acute (4) Chest pain Status: Acute (5) Community acquired pneumonia Status: Acute (6) Hyperkalemia Status: Acute (7) Hyponatremia Status: Acute (8) Leukocytosis Status: Acute (9) Obesity Status: Acute (10) Severe sepsis Status: Acute (11) Urinary tract infection Status: Acute Current Medications Current Medications Current Medications Sodium Chloride 1,000 ml @ 5,130 mls/hr Q12M IV Last administered on 1 at 06:17; Start 08/25/21 at 19:00; Stop 08/25/21 at 20:00; Status DC Ceftriaxone Sodium (Rocephin) 1 gm 1X ONCE IVP Last administered on 08/25/21at 19:47; Start 08/25/21 at 19:30; Stop 08/25/21 at 19:31; Status DC Levofloxacin/ Dextrose (Levaquin Per Pharmacy) 1 each PRN DAILY PRN MC SEE COMMENTS; Start 08/25/21 at 19:00 Morphine Sulfate (Morphine Sulfate) 5 mg 1X ONCE IVP Last administered on 08/25/21at 19:40; Start 08/25/21 at 19:15; Stop 08/25/21 at 19:16; Status DC Levofloxacin/ Dextrose 100 ml @ 100 mls/hr 1X ONCE IV Last administered on 08/25/21at 19:50; Start 08/25/21 at 19:30; Stop 08/25/21 at 20:29; Status DC Levofloxacin/ Dextrose 50 ml @ 50 mls/hr Q24H IV ; Start 08/26/21 at 21:00; Stop 08/26/21 at 10:02; Status DC Calcium Gluconate (Calcium Gluconate) 1,000 mg 1X ONCE IVP Last administered on 08/26/21at 00:12; Start 08/25/21 at 19:30; Stop 08/25/21 at 19:31; Status DC Insulin Human Lispro (HumaLOG) 10 units ONCE ONCE SQ Last administered on 08/26/21at 00:20; Start 08/25/21 at 20:00; Stop 08/25/21 at 20:01; Status DC Dextrose (Dextrose 50%-Water Syringe) 25 gm 1X ONCE IV Last administered on 08/26/21at 00:11; Start 08/25/21 at 19:30; Stop 08/25/21 at 19:31; Status DC Sodium Polystyrene Sulfonate (Kayexalate) 15 gm 1X ONCE PO Last administered on 08/26/21at 00:21; Start 08/25/21 at 20:00; Stop 08/25/21 at 20:01; Status DC Furosemide (Lasix) 40 mg 1X ONCE IVP Last administered on 08/26/21at 00:12; Start 08/25/21 at 20:00; Stop 08/25/21 at 20:01; Status DC Allopurinol (Zyloprim) 300 mg DAILY PO ; Start 08/26/21 at 09:00 Aspirin (Ecotrin) 81 mg DAILY PO ; Start 08/26/21 at 09:00; Stop 08/26/21 at 09:28; Status DC Atorvastatin Calcium (Lipitor) 20 mg HS PO Last administered on 08/26/21at 00:21; Start 08/25/21 at 21:00 Clopidogrel Bisulfate (Plavix) 75 mg DAILY PO ; Start 08/26/21 at 09:00; Stop 08/26/21 at 09:28; Status DC Fluticasone Propionate (Flonase) 2 spray DAILY NS ; Start 08/26/21 at 09:00 Isosorbide Mononitrate (Imdur) 60 mg DAILY PO ; Start 08/26/21 at 09:00; Stop 08/26/21 at 09:30; Status DC Pantoprazole Sodium (Protonix) 40 mg DAILYAC PO ; Start 08/26/21 at 07:30 Tamsulosin HCl (Flomax) 0.4 mg HS PO Last administered on 08/26/21at 00:21; Start 08/25/21 at 21:00 Tizanidine HCl (Zanaflex) 4 mg QHS PO Last administered on 08/26/21at 00:21; Start 08/25/21 at 21:00 Cetirizine HCl (ZyrTEC) 10 mg DAILY PO ; Start 08/26/21 at 09:00 Metoprolol Succinate (Toprol Xl) 50 mg DAILY PO ; Start 08/26/21 at 09:00; Stop 08/26/21 at 09:31; Status DC Oxycodone/ Acetaminophen (Percocet 5/325) 1 tab PRN Q4HRS PRN PO MODERATE PAIN 4-6; Start 08/26/21 at 03:45 Oxycodone/ Acetaminophen (Percocet 5/325) 2 tab PRN Q4HRS PRN PO SEVERE PAIN 7- 10 Last administered on 08/26/21at 12:19; Start 08/26/21 at 04:00 Lidocaine HCl (Xylocaine-Mpf 1% 5ml Vial) 5 ml STK-MED ONCE .ROUTE ; Start 08/26/21 at 04:38; Stop 08/26/21 at 04:38; Status DC Lidocaine HCl (Lidocaine Pf 2% Vial) 5 ml STK-MED ONCE .ROUTE ; Start 08/26/21 at 04:38; Stop 08/26/21 at 04:39; Status DC Lidocaine HCl (Lidocaine Pf 2% Vial) 5 ml STK-MED ONCE .ROUTE ; Start 08/26/21 at 07:43; Stop 08/26/21 at 07:43; Status DC Norepinephrine Bitartrate 8 mg/ Dextrose 258 ml @ 33.94 mls/ hr CONT PRN IV PER PROTOCOL Last administered on 08/26/21at 08:31; Start 08/26/21 at 08:30 Perflutren Protein Type A Microsphe (Optison) 0.66 mg STK-MED ONCE IV ; Start 08/26/21 at 09:42; Stop 08/26/21 at 09:42; Status DC Piperacillin Sod/ Tazobactam Sod 3.375 gm/Sodium Chloride 50 ml @ 100 mls/hr Q6HRS IV Last administered on 08/26/21at 10:21; Start 08/26/21 at 10:00 Levofloxacin/ Dextrose 150 ml @ 100 mls/hr Q48H IV ; Start 08/26/21 at 16:00 Sodium Bicarbonate 150 meq/Dextrose 1,150 ml @ 75 mls/hr [id number] IV ; Start 08/26/21 at 12:00 Active Scripts Active Eliquis (Apixaban) 5 Mg Tablet 5 Mg PO BID 30 Days Hydrocodone-Apap 5-325 (Hydrocodone Bit/Acetaminophen) 1 Tab Tablet 1 Tab PO PRN Q6HRS PRN 5 Days Aspirin Ec (Aspirin) 81 Mg Tablet.dr 1 Tab PO DAILY Reported Flomax (Tamsulosin Hcl) 0.4 Mg Cap.er.24h 1 Cap PO HS Fluticasone Propionate Nasal [place] (Fluticasone Propionate) 16 Gm [place].susp 2 [place] NS DAILY Linzess (Linaclotide) 145 Mcg Capsule 145 Mcg PO 3X/WEEK Fexofenadine Hcl 180 Mg Tablet 1 Tab PO DAILY Vitamin C (Ascorbic Acid) 500 Mg Capsule.er 1,000 Mg PO DAILY One Daily For Men Tablet (Multivits-Minerals/Fa/Lycopene) 1 Each Tablet 1 Tab PO DAILY 30 Days Iron (Ferrous Sulfate) 325 Mg Tablet 65 Mg PO DAILY Allopurinol 300 Mg Tablet 1 Tab PO DAILY Vitamin D2 (Ergocalciferol (Vitamin D2)) 50,000 Unit Capsule 50,000 Unit PO WEEKLY Dose given on the Take on Pantoprazole Sodium (Pantoprazole Sodium) 40 Mg Tablet.dr 1 Tab PO DAILY Gave this morning take tomorrow morning Tizanidine Hcl 4 Mg Tablet 1 Tab PO QHS Gave dose last night Take tonight before bedtime Vascepa (Icosapent Ethyl) 1 Gm Capsule 1 Gm PO Not given on this admission Take as previoulsy instructed Atorvastatin Calcium 20 Mg Tablet 1 Tab PO HS Gave last night Take tonight Clopidogrel (Clopidogrel Bisulfate) 75 Mg Tablet 1 Tab PO DAILY Gave this morning take tomorrow morning Isosorbide Mononitrate Er (Isosorbide Mononitrate) 30 Mg Tab.er.24h 60 Mg PO DAILY Gave this morning take tomorrow morning Repaglinide 1 Mg Tablet 1 Mg PO Not given on this admission Continue as previously instructed Toprol Xl (Metoprolol Succinate) 50 Mg Tab.er.24h 1 Tab PO DAILY Gave this morning take tomorrow morning Allergies Allergies: Coded Allergies: heparin (Verified Adverse Reaction, Severe, 08/25/21) 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 at [facility] ROS General: YES: Fatigue; No: Chills PSYCHOLOGICAL ROS: No: Anxiety, Depression Eyes: No Blurry vision, No Decreased vision HEENT: No: Heacaches, Sore Throat Hematological and Lymphatic: YES: Bleeding Problems; No: Blood Clots Respiratory: No: Cough Cardiovascular: yes Chest Pain; No Palpitations Gastrointestinal: No Nausea, No Vomiting Musculoskeletal: Yes Muscle Pain, Yes Muscular Weakness Neurological: Yes Impaired Coord/balance Physical Exam General: Cooperative, No acute distress, Other (awake) HEENT: Atraumatic, PERRLA Lungs: Clear to auscultation, Normal air movement Heart: Regular rate, Normal S1, Normal S2 Abdomen: Soft, No tenderness Skin: Other (neph tube in place) Psych/Mental Status: Mental status NL, Mood NL Vitals VITALS Vital Signs Date Time Temp Pulse Resp B/P (MAP) Pulse Ox O2 Delivery O2 Flow Rate FiO2 08/26/21 14:00 113 12 138/38 100 Nasal Cannula 2.0 08/26/21 12:00 98.1 98.1 Labs Labs Laboratory Tests Test 08/25/21 15:50 08/25/21 17:30 08/25/21 20:05 08/25/21 21:45 White Blood Count 22.4 x10^3/uL (4.0-11.0) Red Blood Count 4.28 x10^6/uL (4.30-5.70) Hemoglobin 12.2 g/dL (13.0-17.5) Hematocrit 38.1 % (39.0-53.0) Mean Corpuscular Volume 89 fL (79-100) Mean Corpuscular Hemoglobin 29 pg (25-35) Mean Corpuscular Hemoglobin Concent 32 g/dL (31-37) Red Cell Distribution Width 21.8 % (11.5-14.5) Platelet Count 209 x10^3/uL (140-400) Neutrophils (%) (Auto) 95 % (31-73) Lymphocytes (%) (Auto) 2 % (24-48) Monocytes (%) (Auto) 3 % (0-9) Eosinophils (%) (Auto) 0 % (0-3) Basophils (%) (Auto) 0 % (0-3) Neutrophils # (Auto) 21.3 x10^3/uL (1.8-7.7) Lymphocytes # (Auto) 0.3 x10^3/uL (1.0-4.8) Monocytes # (Auto) 0.7 x10^3/uL (0.0-1.1) Eosinophils # (Auto) 0.0 x10^3/uL (0.0-0.7) Basophils # (Auto) 0.0 x10^3/uL (0.0-0.2) Segmented Neutrophils % 91 % (35-66) Band Neutrophils % 1 % (0-9) Lymphocytes % 7 % (24-48) Monocytes % 1 % (0-10) Toxic Granulation Mod Platelet Estimate Adequate (ADEQUATE) Hypochromasia Mod Sodium Level 133 mmol/L (136-145) Potassium Level 5.8 mmol/L (3.5-5.1) Chloride Level 95 mmol/L (98-107) Carbon Dioxide Level 17 mmol/L (21-32) Anion Gap 21 (6-14) Blood Urea Nitrogen 48 mg/dL (8-26) Creatinine 4.0 mg/dL (0.7-1.3) Estimated GFR (Cockcroft-Gault) 15.0 BUN/Creatinine Ratio 12 (6-20) Glucose Level 168 mg/dL (70-99) Lactic Acid Level 10.2 mmol/L (0.4-2.0) 5.6 mmol/L (0.4-2.0) Calcium Level 9.0 mg/dL (8.5-10.1) Total Bilirubin 0.6 mg/dL (0.2-1.0) Aspartate Amino Transf (AST/SGOT) 22 U/L (15-37) Alanine Aminotransferase (ALT/SGPT) 26 U/L (16-63) Alkaline Phosphatase 87 U/L (46-116) Creatine Kinase 501 U/L (39-308) Creatine Kinase MB (Mass) 2.4 ng/mL (0.0-3.6) Creatine Kinase MB Relative Index 0.5 % (0-4) Troponin I Quantitative < 0.017 ng/mL (0.000-0.055) PO-Yur-N-Type Natriuretic Peptide 499 pg/mL (0-124) Total Protein 8.0 g/dL (6.4-8.2) Albumin 3.1 g/dL (3.4-5.0) Albumin/Globulin Ratio 0.6 (1.0-1.7) Urine Collection Type Void Urine Color Juanita Urine Clarity Turbid Urine pH 5.0 (<5.0-8.0) Urine Specific [place] 1.015 (1.000-1.030) Urine Protein 30 mg/dL (NEG-TRACE) Urine Glucose (UA) Negative mg/dL (NEG) Urine Ketones (Stick) Negative mg/dL (NEG) Urine Blood Large (NEG) Urine Nitrite Negative (NEG) Urine Bilirubin Negative (NEG) Urine Urobilinogen Dipstick 1.0 mg/dL (0.2 mg/dL) Urine Leukocyte Esterase Large (NEG) Urine RBC 6-10 /HPF (0-2) Urine WBC Tntc /HPF (0-4) Urine Squamous Epithelial Cells Mod /LPF Urine Bacteria Moderate /HPF (0-FEW) Urine Mucus Mod /LPF O2 Saturation 95 % (92-99) Arterial Blood pH 7.42 (7.35-7.45) Arterial Blood pCO2 at Patient Temp 26 mmHg (35-46) Arterial Blood pO2 at Patient Temp 82 mmHg (65-108) Arterial Blood HCO3 16 mmol/L (21-28) Arterial Blood Base Excess -7 mmol/L (-3-3) FiO2 21 Test 08/26/21 10:20 White Blood Count 16.7 x10^3/uL (4.0-11.0) Red Blood Count 3.79 x10^6/uL (4.30-5.70) Hemoglobin 10.5 g/dL (13.0-17.5) Hematocrit 33.1 % (39.0-53.0) Mean Corpuscular Volume 87 fL (79-100) Mean Corpuscular Hemoglobin 28 pg (25-35) Mean Corpuscular Hemoglobin Concent 32 g/dL (31-37) Red Cell Distribution Width 21.7 % (11.5-14.5) Platelet Count 194 x10^3/uL (140-400) Neutrophils (%) (Auto) 90 % (31-73) Lymphocytes (%) (Auto) 4 % (24-48) Monocytes (%) (Auto) 6 % (0-9) Eosinophils (%) (Auto) 0 % (0-3) Basophils (%) (Auto) 0 % (0-3) Neutrophils # (Auto) 14.9 x10^3/uL (1.8-7.7) Lymphocytes # (Auto) 0.7 x10^3/uL (1.0-4.8) Monocytes # (Auto) 1.0 x10^3/uL (0.0-1.1) Eosinophils # (Auto) 0.0 x10^3/uL (0.0-0.7) Basophils # (Auto) 0.0 x10^3/uL (0.0-0.2) Sodium Level 135 mmol/L (136-145) Potassium Level 4.9 mmol/L (3.5-5.1) Chloride Level 102 mmol/L (98-107) Carbon Dioxide Level 19 mmol/L (21-32) Anion Gap 14 (6-14) Blood Urea Nitrogen 64 mg/dL (8-26) Creatinine 4.1 mg/dL (0.7-1.3) Estimated GFR (Cockcroft-Gault) 14.5 Glucose Level 174 mg/dL (70-99) Calcium Level 8.1 mg/dL (8.5-10.1) Troponin I Quantitative < 0.017 ng/mL (0.000-0.055) Triglycerides Level 156 mg/dL (0-150) Cholesterol Level 121 mg/dL (0-200) LDL Cholesterol, Calculated 75 mg/dL (0-100) VLDL Cholesterol, Calculated 31 mg/dL (0-40) Non-HDL Cholesterol Calculated 106 mg/dL (0-129) HDL Cholesterol 15 mg/dL (40-60) Cholesterol/HDL Ratio 8.1 Laboratory Tests Test 08/25/21 15:50 08/25/21 17:30 08/25/21 20:05 08/25/21 21:45 White Blood Count 22.4 x10^3/uL (4.0-11.0) Red Blood Count 4.28 x10^6/uL (4.30-5.70) Hemoglobin 12.2 g/dL (13.0-17.5) Hematocrit 38.1 % (39.0-53.0) Mean Corpuscular Volume 89 fL (79-100) Mean Corpuscular Hemoglobin 29 pg (25-35) Mean Corpuscular Hemoglobin Concent 32 g/dL (31-37) Red Cell Distribution Width 21.8 % (11.5-14.5) Platelet Count 209 x10^3/uL (140-400) Neutrophils (%) (Auto) 95 % (31-73) Lymphocytes (%) (Auto) 2 % (24-48) Monocytes (%) (Auto) 3 % (0-9) Eosinophils (%) (Auto) 0 % (0-3) Basophils (%) (Auto) 0 % (0-3) Neutrophils # (Auto) 21.3 x10^3/uL (1.8-7.7) Lymphocytes # (Auto) 0.3 x10^3/uL (1.0-4.8) Monocytes # (Auto) 0.7 x10^3/uL (0.0-1.1) Eosinophils # (Auto) 0.0 x10^3/uL (0.0-0.7) Basophils # (Auto) 0.0 x10^3/uL (0.0-0.2) Segmented Neutrophils % 91 % (35-66) Band Neutrophils % 1 % (0-9) Lymphocytes % 7 % (24-48) Monocytes % 1 % (0-10) Toxic Granulation Mod Platelet Estimate Adequate (ADEQUATE) Hypochromasia Mod Sodium Level 133 mmol/L (136-145) Potassium Level 5.8 mmol/L (3.5-5.1) Chloride Level 95 mmol/L (98-107) Carbon Dioxide Level 17 mmol/L (21-32) Anion Gap 21 (6-14) Blood Urea Nitrogen 48 mg/dL (8-26) Creatinine 4.0 mg/dL (0.7-1.3) Estimated GFR (Cockcroft-Gault) 15.0 BUN/Creatinine Ratio 12 (6-20) Glucose Level 168 mg/dL (70-99) Lactic Acid Level 10.2 mmol/L (0.4-2.0) 5.6 mmol/L (0.4-2.0) Calcium Level 9.0 mg/dL (8.5-10.1) Total Bilirubin 0.6 mg/dL (0.2-1.0) Aspartate Amino Transf (AST/SGOT) 22 U/L (15-37) Alanine Aminotransferase (ALT/SGPT) 26 U/L (16-63) Alkaline Phosphatase 87 U/L (46-116) Creatine Kinase 501 U/L (39-308) Creatine Kinase MB (Mass) 2.4 ng/mL (0.0-3.6) Creatine Kinase MB Relative Index 0.5 % (0-4) Troponin I Quantitative < 0.017 ng/mL (0.000-0.055) CB-Nrd-F-Type Natriuretic Peptide 499 pg/mL (0-124) Total Protein 8.0 g/dL (6.4-8.2) Albumin 3.1 g/dL (3.4-5.0) Albumin/Globulin Ratio 0.6 (1.0-1.7) Urine Collection Type Void Urine Color Juanita Urine Clarity Turbid Urine pH 5.0 (<5.0-8.0) Urine Specific [place] 1.015 (1.000-1.030) Urine Protein 30 mg/dL (NEG-TRACE) Urine Glucose (UA) Negative mg/dL (NEG) Urine Ketones (Stick) Negative mg/dL (NEG) Urine Blood Large (NEG) Urine Nitrite Negative (NEG) Urine Bilirubin Negative (NEG) Urine Urobilinogen Dipstick 1.0 mg/dL (0.2 mg/dL) Urine Leukocyte Esterase Large (NEG) Urine RBC 6-10 /HPF (0-2) Urine WBC Tntc /HPF (0-4) Urine Squamous Epithelial Cells Mod /LPF Urine Bacteria Moderate /HPF (0-FEW) Urine Mucus Mod /LPF O2 Saturation 95 % (92-99) Arterial Blood pH 7.42 (7.35-7.45) Arterial Blood pCO2 at Patient Temp 26 mmHg (35-46) Arterial Blood pO2 at Patient Temp 82 mmHg (65-108) Arterial Blood HCO3 16 mmol/L (21-28) Arterial Blood Base Excess -7 mmol/L (-3-3) FiO2 21 Test 10/25/21 10:20 White Blood Count 16.7 x10^3/uL (4.0-11.0) Red Blood Count 3.79 x10^6/uL (4.30-5.70) Hemoglobin 10.5 g/dL (13.0-17.5) Hematocrit 33.1 % (39.0-53.0) Mean Corpuscular Volume 87 fL (79-100) Mean Corpuscular Hemoglobin 28 pg (25-35) Mean Corpuscular Hemoglobin Concent 32 g/dL (31-37) Red Cell Distribution Width 21.7 % (11.5-14.5) Platelet Count 194 x10^3/uL (140-400) Neutrophils (%) (Auto) 90 % (31-73) Lymphocytes (%) (Auto) 4 % (24-48) Monocytes (%) (Auto) 6 % (0-9) Eosinophils (%) (Auto) 0 % (0-3) Basophils (%) (Auto) 0 % (0-3) Neutrophils # (Auto) 14.9 x10^3/uL (1.8-7.7) Lymphocytes # (Auto) 0.7 x10^3/uL (1.0-4.8) Monocytes # (Auto) 1.0 x10^3/uL (0.0-1.1) Eosinophils # (Auto) 0.0 x10^3/uL (0.0-0.7) Basophils # (Auto) 0.0 x10^3/uL (0.0-0.2) Sodium Level 135 mmol/L (136-145) Potassium Level 4.9 mmol/L (3.5-5.1) Chloride Level 102 mmol/L (98-107) Carbon Dioxide Level 19 mmol/L (21-32) Anion Gap 14 (6-14) Blood Urea Nitrogen 64 mg/dL (8-26) Creatinine 4.1 mg/dL (0.7-1.3) Estimated GFR (Cockcroft-Gault) 14.5 Glucose Level 174 mg/dL (70-99) Calcium Level 8.1 mg/dL (8.5-10.1) Troponin I Quantitative < 0.017 ng/mL (0.000-0.055) Triglycerides Level 156 mg/dL (0-150) Cholesterol Level 121 mg/dL (0-200) LDL Cholesterol, Calculated 75 mg/dL (0-100) VLDL Cholesterol, Calculated 31 mg/dL (0-40) Non-HDL Cholesterol Calculated 106 mg/dL (0-129) HDL Cholesterol 15 mg/dL (40-60) Cholesterol/HDL Ratio 8.1 Assessment/Plan Assessment/Plan retroperitoneal bleed-hold anticoags if possible supportive care, medical management no gen surg plans LATISHA RAYMUNDO APRN Aug 26, 2021 14:12
[2021-08-26] MEDS ORDERED: METF10007 PO (14:30)
[2021-08-26] MEDS ORDERED: FINA5TAB4 PO (14:30)
[2021-08-26] MEDS ORDERED: LISI20TA18 PO (14:30)
[2021-08-26] MEDS ORDERED: POTA20TA4 PO (14:30)
[2021-08-26] MEDS ORDERED: FURO-68 PO (14:30)
[2021-08-26 14:57] LABS: PROTHROMBIN TIME PATIENT 18.5 SEC (11.7-14.0)
--- NOTE | 2021-08-26 15:00 | NUR ---
Allergies and reactions Heparin INR BUN 64 Cr 4.1 Platelets 194 Blood culture done Y blood culture results negative Order Verified Y Consent signed Y Previous PICC placement N Past Medical/Surgical history and current diagnosis reviewed Y Patient Medical /Surgical History Related to PICC line placement Cancer Diabetes History of acute/chronic renal failure Renal consult Septicemia/Bacteremia Special considerations for PICC line place Infections PICC placement indication Caustic medication class drug usage, rn long term care antibiotic usage, Multiple/ Frequent blood draws, Rosa Kent RN name of PICC Nurse
--- NOTE | 2021-08-26 16:00 | NUR ---
Procedure: Following complete explanation of the PICC procedure including the indications, risks, and potential complications, informed consent was obtained. The possibility for infection was discussed along with signs, symptoms, and prevention. All the questions were answered. Written and verbal patient education was provided. Hand hygiene performed. Standardized central line checklist was utilized. The patient was placed in the supine position, the arm was prepped with chlorhexidine and patient draped with maximum sterile barrier. 5 mL 1% lidocaine was infiltrated into the skin to provide local anesthesia. A thorough assessment of right upper extremity completed. Using real-time ultrasound guidance and standardized micro puncture set, the cephalic vein was punctured and a peel away sheath was placed using the modified Seldinger technique. A tip location device was used to ensure adequate catheter placement. The catheter was secured using a securement device and an antimicrobial patch was applied directly on the insertion site followed by a transparent dressing. All ports withdraw blood and flush without resistance. Patient tolerated the procedure without apparent complication(s). Triple Lumen Power PICC placement successful and uncomplicated. Placement verified by EKG tip confirmation system and/or chest x-ray. Tip located in the CAJ Complications: None
[2021-08-26] MEDS: SODIUM BICARBONATE VIAL 150 MEQ in IV DEXTROSE 5% 1,000 ML IV SCH (16:09)
--- NOTE | 2021-08-26 17:45 | NUR ---
Family has decided to withdraw care and to stop the pressor and antibiotics and fluids. Dr. Milian notified of family's decision and will put in orders for comfort care.
[2021-08-26] MEDS: MORPHINE SULFATE 20 MG/ML CONC SOLUTION. SL PRN ×3 (18:10→23:30)
[2021-08-26] MEDS: LORazepam INTENSOL 2 MG/ML ORAL.CONC SL PRN (20:18)
[2021-08-27] VITALS (13 sets, daily range): BP systolic 36–97; BP diastolic 20–49
[2021-08-27] MEDS: oxyCODONE/APAP 5/325 1 TAB TABLET PO PRN ×2 (01:20→05:32)
[2021-08-27] MEDS: SODIUM BICARBONATE VIAL 150 MEQ in IV DEXTROSE 5% 1,000 ML IV SCH (03:20)
[2021-08-27] MEDS: MORPHINE SULFATE 20 MG/ML CONC SOLUTION. SL PRN ×2 (03:58→07:43)
[2021-08-27] MEDS: LORazepam INTENSOL 2 MG/ML ORAL.CONC SL PRN (04:33)
[2021-08-27] MEDS: PIPERACILLIN/TAZOBACTAM 3.375 GM in IV NORMAL SALINE 50ML 50 ML IV SCH ×2 (05:31)
[2021-08-27] MEDS: PANTOPRAZOLE 40 MG TABLET.DR. PO SCH (07:30)
[2021-08-27] MEDS ORDERED: IV NORMAL SALINE 1000ML BAG 1,000 ML IV SCH (08:15)
[2021-08-27] MEDS: MORPHINE SULFATE 30 ML IV PRN ×2 (08:19→16:05)
--- NOTE | 2021-08-27 08:27 | PDOC ---
[employer] PROGRESS NOTE Date of Service DOS: DATE: 08/27/21 TIME: 08:24 Chief Complaint Chief Complaint Sepsis - with source likely urine Acute cystitis Stable angina Acute on chronic respiratory failure with hypoxia Acute Renal Failure L5 vertebral fracture Retroperitoneal bleed CHF History end-stage bladder cancer -Patient presenting with chest pain. Cardiac work-up thus far unremarkable normal troponins. EKG unremarkable. -Patient with increasing oxygen requirement -Patient with a notably elevated creatinine on admission. Also multiple electrolyte abnormalities and lactic acidosis. Consulted nephrology discussed with Dr. Perrin on the phone. Recommended a Noncon CT of the abdomen to evaluate for any obstruction given the left-sided neph tube already in place -Patient received Rocephin and Levaquin in the emergency room Levaquin already resumed will continue this -Patient and family member do report history of heart failure echo here in 2018 showing EF around 60%. Either way given presentation will repeat echo and consult cardiology History of Present Illness History of Present Illness Patient in the emergency room today due to chest pain. Reports that he slid out of his recliner and noticed that when he was getting a backup his right-sided chest pain. Was worried he called EMS and was brought in the emergency room. Reported 7 out of 10 pain. Was denying any sort of shortness of breath or pain with breathing. Patient has a history of end-stage bladder cancer there is questionable history if he is on hospice or not he really would not give me a clear answer on this. He is a DNR. The family member at bedside really would not give a clear answer on this hospice history either. Of note this is agitation from ER provider medical regarding decision to be admitted "Discussed with patient option to be admitted related to patient is a hospice patient. Patient states he would rather go home as this is where he wants to live the end of his life. Patient discussed health with daughter at bedside who is his DPOA, both patient and patient's daughter made a joint decision to be admitted to the hospital." In the emergency room patient found to have hyperkalemia creatinine around 3 to have lactic acidosis doses up to 10. This x-ray showed enlarged thoracic aorta but based upon the read like this may have been a poor study. Patient has had a history of bladder cancer. Has nephrostomy tube in place. 08/26/2021: Afebrile, currently breathing on BiPAP at the time of my evaluation. CT abdomen/pelvis was obtained yesterday that showed mild fat stranding identified in the retroperitoneum about the IVC and the aortic bifurcation likely retroperitoneal bleed with oblique mild displaced fracture of the L5 vertebral body. Consultation has been placed to neurosurgery and general surgery. Blood cultures positive for gram-negative rods and 3/4 bottles. Continue IV antibiotics and follow urine/blood culture sensitivities. 08/27/2021: Had discussion with daughter (MARCO) at bedside. She is agreeable to comfort care measures only. Antibiotics and Levophed have been discontinued. Due to some continued pain and discomfort, will place patient on morphine gtt. Will place consultation to [facility] inpatient hospice, however given current state I do not believe he will survive the next day or so. Critical care time 30 minutes spent reviewing charts, reviewing imaging, reviewing labs, discussion with RN, discussion with daughter. Vitals/I&O Vitals/I&O: Vital Signs Date Time Temp Pulse Resp B/P (MAP) Pulse Ox O2 Delivery O2 Flow Rate FiO2 08/27/21 08:19 20 2 Nasal Cannula 08/27/21 08:13 2.0 08/27/21 08:00 82 77/36 (50) 08/27/21 04:00 98.1 98.1 I & O 08/26/21 08/26/21 08/27/21 15:00 23:00 07:00 Intake Total 50 ml 540 ml 0 ml Output Total 815 ml 1250 ml 45 ml Balance -765 ml -710 ml -45 ml Physical Exam General: Cooperative, No acute distress, Other (awake) Heart: Regular rate, Normal S1, Normal S2 Lungs: Clear Abdomen: Soft, No tenderness Extremities: No edema Skin: Other (neph tube in place) Labs Labs: Laboratory Tests Test 08/26/21 10:20 08/26/21 14:35 White Blood Count 16.7 x10^3/uL (4.0-11.0) Red Blood Count 3.79 x10^6/uL (4.30-5.70) Hemoglobin 10.5 g/dL (13.0-17.5) Hematocrit 33.1 % (39.0-53.0) Mean Corpuscular Volume 87 fL (79-100) Mean Corpuscular Hemoglobin 28 pg (25-35) Mean Corpuscular Hemoglobin Concent 32 g/dL (31-37) Red Cell Distribution Width 21.7 % (11.5-14.5) Platelet Count 194 x10^3/uL (140-400) Neutrophils (%) (Auto) 90 % (31-73) Lymphocytes (%) (Auto) 4 % (24-48) Monocytes (%) (Auto) 6 % (0-9) Eosinophils (%) (Auto) 0 % (0-3) Basophils (%) (Auto) 0 % (0-3) Neutrophils # (Auto) 14.9 x10^3/uL (1.8-7.7) Lymphocytes # (Auto) 0.7 x10^3/uL (1.0-4.8) Monocytes # (Auto) 1.0 x10^3/uL (0.0-1.1) Eosinophils # (Auto) 0.0 x10^3/uL (0.0-0.7) Basophils # (Auto) 0.0 x10^3/uL (0.0-0.2) Sodium Level 135 mmol/L (136-145) Potassium Level 4.9 mmol/L (3.5-5.1) Chloride Level 102 mmol/L (98-107) Carbon Dioxide Level 19 mmol/L (21-32) Anion Gap 14 (6-14) Blood Urea Nitrogen 64 mg/dL (8-26) Creatinine 4.1 mg/dL (0.7-1.3) Estimated GFR (Cockcroft-Gault) 14.5 Glucose Level 174 mg/dL (70-99) Calcium Level 8.1 mg/dL (8.5-10.1) Troponin I Quantitative < 0.017 ng/mL (0.000-0.055) Triglycerides Level 156 mg/dL (0-150) Cholesterol Level 121 mg/dL (0-200) LDL Cholesterol, Calculated 75 mg/dL (0-100) VLDL Cholesterol, Calculated 31 mg/dL (0-40) Non-HDL Cholesterol Calculated 106 mg/dL (0-129) HDL Cholesterol 15 mg/dL (40-60) Cholesterol/HDL Ratio 8.1 Prothrombin Time 18.5 SEC (11.7-14.0) Prothromb Time International Ratio 1.6 (0.8-1.1) Assessment and Plan Assessmemt and Plan Problems Medical Problems: (1) Abnormal chest x-ray Status: Acute (2) SONIYA (acute kidney injury) Status: Acute (3) Bladder cancer Status: Acute (4) Chest pain Status: Acute (5) Community acquired pneumonia Status: Acute (6) Hyperkalemia Status: Acute (7) Hyponatremia Status: Acute (8) Leukocytosis Status: Acute (9) Obesity Status: Acute (10) Severe sepsis Status: Acute (11) Urinary tract infection Status: Acute Comment Review of Relevant I have reviewed the following items jm (where applicable) has been applied. Medications: Current Medications Medications (Trade) Dose Ordered Sig/Micah Route PRN Reason Start Time Stop Time Status Last Admin Dose Admin Norepinephrine Bitartrate 8 mg/ Dextrose 258 ml @ 33.94 mls/ hr CONT PRN IV PER PROTOCOL 08/26/21 08:30 08/26/21 16:46 Piperacillin Sod/ Tazobactam Sod 3.375 gm/Sodium Chloride 50 ml @ 100 mls/hr Q6HRS IV 08/26/21 10:00 08/26/21 10:21 Levofloxacin/ Dextrose 150 ml @ 100 mls/hr Q48H IV 08/26/21 16:00 08/26/21 16:09 Sodium Bicarbonate 150 meq/Dextrose 1,150 ml @ 75 mls/hr [id number] IV 08/26/21 12:00 08/26/21 16:09 Morphine Sulfate (Roxanol Conc) 4 mg PRN Q3HRS PRN SL PAIN 08/26/21 17:45 08/27/21 07:43 Lorazepam (Ativan Intensol) 0.5 mg PRN Q6HRS PRN SL ANXIETY / AGITATION 08/26/21 17:45 08/27/21 04:33 Morphine Sulfate 30 ml @ 0 mls/hr CONT PRN PRN IV PER PROTOCOL 08/27/21 08:15 08/27/21 08:19 Justifications for Admission Other Justification JT GARZON MD Aug 27, 2021 08:27
[2021-08-27] MEDS: FLUTICASONE 50MCG/NASAL SPRAY 16GM BOTTLE. NS SCH (09:00)
[2021-08-27] MEDS: ALLOPURINOL 300 MG TABLET. PO SCH (09:00)
[2021-08-27] MEDS: CETIRIZINE HCL 10 MG TABLET. PO SCH (09:00)
--- NOTE | 2021-08-27 09:15 | PDOC ---
DATE OF SERVICE DATE: 08/27/21 TIME: 09:11 SUBJECTIVE ROS Family has decided to withdraw care and to stop the pressor and antibiotics and fluids. OBJECTIVE Vital Signs Vital Signs Date Time Temp Pulse Resp B/P (MAP) Pulse Ox O2 Delivery O2 Flow Rate FiO2 08/27/21 08:49 14 99 Nasal Cannula 2.0 08/27/21 08:00 82 77/36 (50) 08/27/21 04:00 98.1 98.1 I & 0 Intake and Output 08/27/21 07:00 Intake Total 590 ml Output Total 2110 ml Balance -1520 ml Intake Oral 540 ml IV Total 50 ml Output Urine Total 1885 ml Drainage Total 225 ml PHYSICAL EXAM Physical Exam General NAD , HEEN OM dry, oN o2 by FL, Anicteric Neck Supple Lungs Decreased at bases, Non labored CV S1S2 Abdo Obese , NT, BS + Neuro Grossly normal , No focal deficit Left Nephrostomy chronic ; Has Tai as well currently Derm No Rash Psych appears depressed , AXOx 3 Ext No LE edema , changes ov CVI + DIAGNOSIS/ASSESSMENT Assessment & Plan SONIYA- ATN 2/2 Sepsis / Hypotensive Sepsis / Urosepsis /Lactic Acidosis /Hypotensive - Blood cultures positive for gram-negative rods and 3/4 bottles. HyperKalemia POA- Resolved CKD stage 3 B- Creat baseline 1.4-1.7 . Increased Creat in March 2021 . Has Lt Nephrostomy Acute on chronic respiratory failure with hypoxia Hx of end-stage Bladder cancer . Has Lt Nephrostomy , No Hydronephrosis on CT scan Retroperitoneal bleed suspected on Ct about the IVC and the aortic bifurcation Mild displaced fracture of the L5 vertebral body.. Acute on chronic respiratory failure - Currently on o2 by FL Chronic diastolic CHF; Echo 05/21 with preserved LV systolic function Chest pain, atypical; initial trop negative CAD; s/p previous PCI/stents to the LCx and 1st diagonal. s/p PCI/JOELLE to the RCA 05/17/20. Hypertension BP low, Diabetes, II SUSANA: uses bipap Family decision made to place patient on comfort care measures only. Will Sign off COMMENT/RELEVANT DATA Meds Current Medications Medications (Trade) Dose Ordered Sig/Micah Start Time Stop Time Status Last Admin Dose Admin Allopurinol (Zyloprim) 300 mg DAILY 08/26/21 09:00 08/27/21 09:07 DC Aspirin (Ecotrin) 81 mg DAILY 08/26/21 09:00 08/26/21 09:28 DC Atorvastatin Calcium (Lipitor) 20 mg HS 08/25/21 21:00 08/27/21 09:07 DC 08/26/21 00:21 20 MG Calcium Gluconate (Calcium Gluconate) 1,000 mg 1X ONCE 08/25/21 19:30 08/25/21 19:31 DC 08/26/21 00:12 1,000 MG Ceftriaxone Sodium (Rocephin) 1 gm 1X ONCE 08/25/21 19:30 08/25/21 19:31 DC 08/25/21 19:47 1 GM Cetirizine HCl (ZyrTEC) 10 mg DAILY 08/26/21 09:00 08/27/21 09:07 DC Clopidogrel Bisulfate (Plavix) 75 mg DAILY 08/26/21 09:00 08/26/21 09:28 DC Dextrose (Dextrose 50%-Water Syringe) 25 gm 1X ONCE 08/25/21 19:30 08/25/21 19:31 DC 08/26/21 00:11 25 GM Fluticasone Propionate (Flonase) 2 spray DAILY 08/26/21 09:00 08/27/21 09:07 DC Furosemide (Lasix) 40 mg 1X ONCE 08/25/21 20:00 08/25/21 20:01 DC 08/26/21 00:12 40 MG Insulin Human Lispro (HumaLOG) 10 units ONCE ONCE 08/25/21 20:00 08/25/21 20:01 DC 08/26/21 00:20 10 UNITS Isosorbide Mononitrate (Imdur) 60 mg DAILY 08/26/21 09:00 08/26/21 09:30 DC Levofloxacin/ Dextrose 150 ml @ 100 mls/hr Q48H 08/26/21 16:00 08/27/21 09:07 DC 08/26/21 16:09 100 MLS/HR Levofloxacin/ Dextrose (Levaquin Per Pharmacy) 1 each PRN DAILY PRN 08/25/21 19:00 08/27/21 09:07 DC Lidocaine HCl (Lidocaine Pf 2% Vial) 5 ml STK-MED ONCE 08/26/21 07:43 08/26/21 07:43 DC Lidocaine HCl (Xylocaine-Mpf 1% 5ml Vial) 5 ml STK-MED ONCE 08/26/21 04:38 08/26/21 04:38 DC Lorazepam (Ativan Inj) 2 mg PRN Q2HRS PRN 08/27/21 09:00 Lorazepam (Ativan Intensol) 0.5 mg PRN Q6HRS PRN 08/26/21 17:45 08/27/21 04:33 0.5 MG Metoprolol Succinate (Toprol Xl) 50 mg DAILY 08/26/21 09:00 08/26/21 09:31 DC Morphine Sulfate 30 ml @ 0 mls/hr CONT PRN PRN 08/27/21 08:15 08/27/21 08:19 2 MLS/HR Morphine Sulfate (Morphine Sulfate) 5 mg 1X ONCE 08/25/21 19:15 08/25/21 19:16 DC 08/25/21 19:40 5 MG Morphine Sulfate (Roxanol Conc) 4 mg PRN Q3HRS PRN 08/26/21 17:45 08/27/21 07:43 4 MG Norepinephrine Bitartrate 8 mg/ Dextrose 258 ml @ 33.94 mls/ hr CONT PRN 08/26/21 08:30 08/27/21 09:07 DC 08/26/21 16:46 44.122 MLS/HR Oxycodone/ Acetaminophen (Percocet 5/325) 2 tab PRN Q4HRS PRN 08/26/21 04:00 08/27/21 05:32 2 TAB Pantoprazole Sodium (Protonix) 40 mg DAILYAC 08/26/21 07:30 08/27/21 09:07 DC Perflutren Protein Type A Microsphe (Optison) 0.66 mg STK-MED ONCE 08/26/21 10:00 08/27/21 08:49 DC Piperacillin Sod/ Tazobactam Sod 3.375 gm/Sodium Chloride 50 ml @ 100 mls/hr Q6HRS 08/26/21 10:00 08/27/21 09:07 DC 08/26/21 10:21 100 MLS/HR Sodium Bicarbonate 150 meq/Dextrose 1,150 ml @ 75 mls/hr [id number] 08/26/21 12:00 08/27/21 09:07 DC 08/26/21 16:09 75 MLS/HR Sodium Polystyrene Sulfonate (Kayexalate) 15 gm 1X ONCE 08/25/21 20:00 08/25/21 20:01 DC 08/26/21 00:21 15 GM Sodium Chloride 1,000 ml @ 25 mls/hr Q24H 08/27/21 08:15 Tamsulosin HCl (Flomax) 0.4 mg HS 08/25/21 21:00 08/27/21 09:07 DC 08/26/21 00:21 0.4 MG Tizanidine HCl (Zanaflex) 4 mg QHS 08/25/21 21:00 08/27/21 09:07 DC 08/26/21 00:21 4 MG Lab Laboratory Tests Test 08/26/21 10:20 08/26/21 14:35 White Blood Count 16.7 x10^3/uL (4.0-11.0) Red Blood Count 3.79 x10^6/uL (4.30-5.70) Hemoglobin 10.5 g/dL (13.0-17.5) Hematocrit 33.1 % (39.0-53.0) Mean Corpuscular Volume 87 fL (79-100) Mean Corpuscular Hemoglobin 28 pg (25-35) Mean Corpuscular Hemoglobin Concent 32 g/dL (31-37) Red Cell Distribution Width 21.7 % (11.5-14.5) Platelet Count 194 x10^3/uL (140-400) Neutrophils (%) (Auto) 90 % (31-73) Lymphocytes (%) (Auto) 4 % (24-48) Monocytes (%) (Auto) 6 % (0-9) Eosinophils (%) (Auto) 0 % (0-3) Basophils (%) (Auto) 0 % (0-3) Neutrophils # (Auto) 14.9 x10^3/uL (1.8-7.7) Lymphocytes # (Auto) 0.7 x10^3/uL (1.0-4.8) Monocytes # (Auto) 1.0 x10^3/uL (0.0-1.1) Eosinophils # (Auto) 0.0 x10^3/uL (0.0-0.7) Basophils # (Auto) 0.0 x10^3/uL (0.0-0.2) Sodium Level 135 mmol/L (136-145) Potassium Level 4.9 mmol/L (3.5-5.1) Chloride Level 102 mmol/L (98-107) Carbon Dioxide Level 19 mmol/L (21-32) Anion Gap 14 (6-14) Blood Urea Nitrogen 64 mg/dL (8-26) Creatinine 4.1 mg/dL (0.7-1.3) Estimated GFR (Cockcroft-Gault) 14.5 Glucose Level 174 mg/dL (70-99) Calcium Level 8.1 mg/dL (8.5-10.1) Troponin I Quantitative < 0.017 ng/mL (0.000-0.055) Triglycerides Level 156 mg/dL (0-150) Cholesterol Level 121 mg/dL (0-200) LDL Cholesterol, Calculated 75 mg/dL (0-100) VLDL Cholesterol, Calculated 31 mg/dL (0-40) Non-HDL Cholesterol Calculated 106 mg/dL (0-129) HDL Cholesterol 15 mg/dL (40-60) Cholesterol/HDL Ratio 8.1 Prothrombin Time 18.5 SEC (11.7-14.0) Prothromb Time International Ratio 1.6 (0.8-1.1) Results All relevant outside records, renal labs, imaging studies, telemetry/EKG's were reviewed. Justicifation of Admission Dx: Justifications for Admission: Justification of Admission Dx: Yes CHF: Hemodynamic Instability Angina: Symp at Rest NORIS SARMIENTO MD Aug 27, 2021 09:15
--- NOTE | 2021-08-27 09:50 | NUR ---
SS following up with discharge planning. SS reviewed pt chart and discussed with pt RN. Pt is currently requiring oxygen at two liters nasal canula. DNR. Pt's family has decided comfort care. Pt on Morphine [employer]. Pt's family requesting inpatient hospice referral at this time. SS phoned and faxed referral to [facility], ; fax [phone]. SS will continue to follow for discharge planning. Addendum: 08/27/21 at 1500 by YOUSUF LIN SS [facility] stating that pt does not qualify for [facility]. Request was made for referral to [facility], [phone]; fax [phone]. SS phoned and faxed referral as requested. SS will await acceptance decision and will proceed accordingly.
--- NOTE | 2021-08-27 13:44 | PDOC ---
PROGRESS NOTES Date of Service: DATE: 08/27/21 TIME: 13:43 Subjective Subjective Somnolent, no new issues per nursing Objective Objective Vital Signs Date Time Temp Pulse Resp B/P (MAP) Pulse Ox O2 Delivery O2 Flow Rate FiO2 08/27/21 12:00 108 68/37 (47) 08/27/21 12:00 98.8 16 85 Nasal Cannula 2.0 98.8 Intake and Output 08/27/21 07:00 Intake Total 590 ml Output Total 2110 ml Balance -1520 ml Intake Oral 540 ml IV Total 50 ml Output Urine Total 1885 ml Drainage Total 225 ml Physical Exam Abdomen: Soft, No tenderness Heart: Regular rate, Normal S1, Normal S2 Extremities: No edema General: Cooperative, No acute distress, Other (awake) HEENT: Atraumatic, PERRLA Lungs: Clear to auscultation, Normal air movement MUSCULOSKELETAL: Osteoarthritic changes both hands Neuro: Normal speech, Sensation intact Psych/Mental Status: Mental status NL, Mood NL Skin: Other (neph tube in place) Assessment Assessment 1. Acute on chronic respiratory failure 2. Mild acute on chronic diastolic CHF; Echo 05/21 with preserved LV systolic function. s/p diuresis 3. Chest pain, atypical; CT ruled out 4. CAD; s/p previous PCI/stents to the LCx and 1st diagonal. s/p PCI/JOELLE to the RCA 05/17/20. Continue current secondary prevention measures 5. L5 vertebral body fracture with suspected retroperitoneal bleed. neurosurgery consulted 6. Leukocytosis, lactic acidosis, sepsis, shock 7. UTI, bacteremia; BC with GNR 8. SONIYA on CKD, hyperkalemia 9. End-stage bladder CA, left nephrostomy tube. on Hospice prior to arrival 10. Hypertension; controlled 11. Hyperlipiemia; statin 12. Diabetes, II 13. Morbid obesity, SUSANA: uses bipap 14. H/o DVT; on OAC. Poor prognosis - Consensus for comfort care Plan Plan of Care Problems Medical Problems: (1) Abnormal chest x-ray Status: Acute (2) SONIYA (acute kidney injury) Status: Acute (3) Bladder cancer Status: Acute (4) Chest pain Status: Acute (5) Community acquired pneumonia Status: Acute (6) Hyperkalemia Status: Acute (7) Hyponatremia Status: Acute (8) Leukocytosis Status: Acute (9) Obesity Status: Acute (10) Severe sepsis Status: Acute (11) Urinary tract infection Status: Acute Comment Review of Relevant I have reviewed the following items jm (where applicable) has been applied. Labs Laboratory Tests Test 08/26/21 14:35 Prothrombin Time 18.5 SEC (11.7-14.0) Prothromb Time International Ratio 1.6 (0.8-1.1) Microbiology 08/25/21 Urine Culture - Preliminary, Resulted 08/25/21 Blood Culture - Preliminary, Resulted Medications Current Medications Levofloxacin/ Dextrose 50 ml @ 50 mls/hr Q24H IV ; Start 08/26/21 at 21:00; Stop 08/26/21 at 10:02; Status DC Levofloxacin/ Dextrose 150 ml @ 100 mls/hr Q48H IV Last administered on 08/26/21at 16:09; Start 08/26/21 at 16:00; Stop 08/27/21 at 09:07; Status DC Lorazepam (Ativan Inj) 2 mg PRN Q2HRS PRN IVP ANXIETY / AGITATION Last admin istered on 08/27/21at 10:41; Start 08/27/21 at 09:00 Lorazepam (Ativan Intensol) 0.5 mg PRN Q6HRS PRN SL ANXIETY / AGITATION Last administered on 08/27/21at 04:33; Start 08/26/21 at 17:45 Morphine Sulfate 30 ml @ 0 mls/hr CONT PRN PRN IV PER PROTOCOL Last administered on 08/27/21at 08:19; Start 08/27/21 at 08:15 Morphine Sulfate (Roxanol Conc) 4 mg PRN Q3HRS PRN SL PAIN Last administered on 08/27/21at 07:43; Start 08/26/21 at 17:45 Sodium Chloride 1,000 ml @ 25 mls/hr Q24H IV ; Start 08/27/21 at 08:15 Vitals/I & O Vital Sign - Last 24 Hours 08/26/21 08/26/21 08/26/21 08/26/21 14:00 15:00 16:00 16:00 Temp 98.5 98.5 Pulse 113 122 126 Resp 12 10 10 B/P (MAP) 138/38 84/56 80/38 Pulse Ox 100 100 100 O2 Delivery Nasal Cannula Nasal Cannula Nasal Cannula Nasal Cannula O2 Flow Rate 2.0 2.0 2.0 2.0 08/26/21 08/26/21 08/26/21 08/26/21 16:00 16:00 16:29 16:44 Pulse 126 122 125 Resp 10 10 B/P (MAP) 80/38 (52) 96/47 101/47 Pulse Ox 100 100 O2 Delivery Nasal Cannula Nasal Cannula O2 Flow Rate 2.0 2.0 2.0 08/26/21 08/26/21 08/26/21 08/26/21 16:49 18:10 18:40 19:00 Pulse 125 104 Resp 20 20 21 10 B/P (MAP) 100/49 78/32 Pulse Ox 100 100 100 100 O2 Delivery Nasal Cannula Room Air Nasal Cannula Nasal Cannula O2 Flow Rate 2.0 2.0 2.0 2.0 08/26/21 08/26/21 08/26/21 08/26/21 20:00 20:00 20:00 20:05 Temp 97.3 97.3 Pulse 101 101 Resp 12 B/P (MAP) 54/32 (39) 54/32 (39) Pulse Ox 100 100 O2 Delivery Nasal Cannula Nasal Cannula Nasal Cannula O2 Flow Rate 2.0 2.0 2.0 08/26/21 08/26/21 08/26/21 08/26/21 20:35 20:36 21:00 21:06 Pulse 97 Resp 10 10 10 B/P (MAP) 56/33 (41) Pulse Ox 100 100 100 100 O2 Delivery Nasal Cannula Nasal Cannula Nasal Cannula Nasal Cannula O2 Flow Rate 2.0 2.0 2.0 2.0 08/26/21 08/26/21 08/26/21 08/26/21 22:00 23:00 23:30 23:59 Pulse 93 90 Resp 14 12 B/P (MAP) 66/38 (47) 57/31 (40) Pulse Ox 100 100 100 O2 Delivery Nasal Cannula Nasal Cannula Nasal Cannula Nasal Cannula O2 Flow Rate 2.0 2.0 2.0 2.0 08/27/21 08/27/21 08/27/21 08/27/21 00:00 00:00 00:00 01:00 Temp 98.8 98.8 Pulse 89 90 85 Resp 10 14 B/P (MAP) 56/31 (39) 57/31 (40) 51/27 (35) Pulse Ox 100 100 98 O2 Delivery Nasal Cannula Nasal Cannula Nasal Cannula O2 Flow Rate 2.0 2.0 2.0 08/27/21 08/27/21 08/27/21 08/27/21 01:20 02:00 03:00 04:00 Temp 98.1 98.1 Pulse 111 87 88 Resp 10 16 14 10 B/P (MAP) 91/49 (63) 95/48 (64) 97/48 (64) Pulse Ox 99 99 99 O2 Delivery Nasal Cannula Nasal Cannula Nasal Cannula Nasal Cannula O2 Flow Rate 2.0 2.0 2.0 2.0 08/27/21 08/27/21 08/27/21 08/27/21 04:00 04:00 04:28 05:00 Pulse 87 88 Resp 12 B/P (MAP) 95/48 (64) 66/37 (47) Pulse Ox 99 99 O2 Delivery Nasal Cannula Nasal Cannula Nasal Cannula O2 Flow Rate 2.0 2.0 2.0 08/27/21 08/27/21 08/27/21 08/27/21 06:00 06:02 07:00 07:43 Pulse 85 86 Resp 12 16 22 B/P (MAP) 64/37 (46) 68/29 (42) Pulse Ox 94 99 99 99 O2 Delivery Nasal Cannula Nasal Cannula Nasal Cannula Nasal Cannula O2 Flow Rate 2.0 2.0 2.0 2.0 08/27/21 08/27/21 08/27/21 08/27/21 07:49 07:54 07:54 08:00 Pulse 84 82 Resp 16 B/P (MAP) 77/38 (51) 77/36 (50) Pulse Ox 99 O2 Delivery Nasal Cannula Nasal Cannula O2 Flow Rate 2.0 2.0 2.0 08/27/21 08/27/21 08/27/21 08/27/21 08:13 08:19 08:49 12:00 Temp 98.8 98.8 Pulse 108 Resp 20 20 14 16 B/P (MAP) 68/37 (47) Pulse Ox 99 2 99 85 O2 Delivery Nasal Cannula Nasal Cannula Nasal Cannula Nasal Cannula O2 Flow Rate 2.0 2.0 2.0 08/27/21 12:00 Pulse 108 B/P (MAP) 68/37 (47) Intake and Output 08/26/21 08/26/21 08/27/21 15:00 23:00 07:00 Intake Total 50 ml 540 ml 0 ml Output Total 815 ml 1250 ml 45 ml Balance -765 ml -710 ml -45 ml STERLING CLARK MD Aug 27, 2021 13:43
--- NOTE | 2021-08-27 19:15 | NUR ---
Pt went asystole on the monitor, upon auscultating heart tone none could be heard, charge nurse also came and assessed heart tones and confirmed there is none. Daughter at the bedside was notified of . MTN was notified ref [id number], pt is not a candidate for organ donation.
--- NOTE | 2021-08-28 06:17 | PDOC3 ---
Discharge Summary Visit Information Date of Admission: Aug 25, 2021 Date of Discharge: Aug 27, 2021 Final Diagnosis Problems Medical Problems: (1) Abnormal chest x-ray Status: Acute (2) SONIYA (acute kidney injury) Status: Acute (3) Bladder cancer Status: Acute (4) Chest pain Status: Acute (5) Community acquired pneumonia Status: Acute (6) Hyperkalemia Status: Acute (7) Hyponatremia Status: Acute (8) Leukocytosis Status: Acute (9) Obesity Status: Acute (10) Severe sepsis Status: Acute (11) Urinary tract infection Status: Acute Brief Hospital Course Allergies Allergies Coded Allergies Type Severity Reaction Last Updated Verified heparin Adverse Reaction Severe 08/25/21 Yes Vital Signs Vital Signs Date Time Temp Pulse Resp B/P (MAP) Pulse Ox O2 Delivery O2 Flow Rate FiO2 08/27/21 19:00 90 10 36/20 (25) 67 Nasal Cannula 2.0 08/27/21 16:00 97.8 97.8 Lab Results Laboratory Tests Test 08/26/21 10:20 08/26/21 14:35 White Blood Count 16.7 x10^3/uL (4.0-11.0) Red Blood Count 3.79 x10^6/uL (4.30-5.70) Hemoglobin 10.5 g/dL (13.0-17.5) Hematocrit 33.1 % (39.0-53.0) Mean Corpuscular Volume 87 fL (79-100) Mean Corpuscular Hemoglobin 28 pg (25-35) Mean Corpuscular Hemoglobin Concent 32 g/dL (31-37) Red Cell Distribution Width 21.7 % (11.5-14.5) Platelet Count 194 x10^3/uL (140-400) Neutrophils (%) (Auto) 90 % (31-73) Lymphocytes (%) (Auto) 4 % (24-48) Monocytes (%) (Auto) 6 % (0-9) Eosinophils (%) (Auto) 0 % (0-3) Basophils (%) (Auto) 0 % (0-3) Neutrophils # (Auto) 14.9 x10^3/uL (1.8-7.7) Lymphocytes # (Auto) 0.7 x10^3/uL (1.0-4.8) Monocytes # (Auto) 1.0 x10^3/uL (0.0-1.1) Eosinophils # (Auto) 0.0 x10^3/uL (0.0-0.7) Basophils # (Auto) 0.0 x10^3/uL (0.0-0.2) Sodium Level 135 mmol/L (136-145) Potassium Level 4.9 mmol/L (3.5-5.1) Chloride Level 102 mmol/L (98-107) Carbon Dioxide Level 19 mmol/L (21-32) Anion Gap 14 (6-14) Blood Urea Nitrogen 64 mg/dL (8-26) Creatinine 4.1 mg/dL (0.7-1.3) Estimated GFR (Cockcroft-Gault) 14.5 Glucose Level 174 mg/dL (70-99) Calcium Level 8.1 mg/dL (8.5-10.1) Troponin I Quantitative < 0.017 ng/mL (0.000-0.055) Triglycerides Level 156 mg/dL (0-150) Cholesterol Level 121 mg/dL (0-200) LDL Cholesterol, Calculated 75 mg/dL (0-100) VLDL Cholesterol, Calculated 31 mg/dL (0-40) Non-HDL Cholesterol Calculated 106 mg/dL (0-129) HDL Cholesterol 15 mg/dL (40-60) Cholesterol/HDL Ratio 8.1 Prothrombin Time 18.5 SEC (11.7-14.0) Prothromb Time International Ratio 1.6 (0.8-1.1) Brief Hospital Course Mr. Drake is a 71 old male who presented with urosepsis. At home patient was already on hospice care. Initially treated with broad-spectrum antibiotics and given IV fluids. He was admitted to ICU and placed on vasopressors. After discussion with patient's daughter (DPOA) decision was made to withdrawal all care to have him placed on comfort care measures. On the evening of 08/27/2021 patient went into asystole and passed with daughter at bedside. Discharge Information Condition at Discharge: / Disposition/Orders: Scheduled Allopurinol (Allopurinol) 300 Mg Tablet, 1 TAB PO DAILY for Hyperunicemia, #30 Ref 5 (Reported) Entered as Reported by: MASHA BARAHONA on 05/09/20 0778 Last Action: Reviewed on 08/26/21 1428 by PEARL SHANTANU Apixaban (Eliquis) 5 Mg Tablet, 5 MG PO BID for HIT for 30 Days, #60 Prescribed by: MARIEL OLIVEIRA MD on 05/31/20 1635 Last Action: Reviewed on 08/26/211429 by PEARL FOURNIER Ascorbic Acid (Vitamin C) 500 Mg Capsule.er, 1,000 MG PO DAILY for supplement, (Reported) Entered as Reported by: MASHA BARAHONA on 05/09/202337 Last Action: Reviewed on 08/26/211428 by PEARL FOURNIER Aspirin (Aspirin Ec) 81 Mg Tablet.dr, 1 TAB PO DAILY for CAD, #30 Ref 3 Prescribed by: YAYO RAJAN on 02/21/20 1259 Last Action: Continued on 08/25/211951 by TIMA ALFONSO MD Atorvastatin Calcium (Atorvastatin Calcium) 20 Mg Tablet, 1 TAB PO HS for HLD, #30 Ref 5 (Reported) Gave last night Take tonight Entered as Reported by: STACY CARTAGENA on 09/23/14210 Last Action: Reviewed on 08/26/211428 by PEARL FOURNIER Clopidogrel Bisulfate (Clopidogrel) 75 Mg Tablet, 1 TAB PO DAILY, #90 Ref 1 (Reported) Gave this morning take tomorrow morning Entered as Reported by: STACY CARTAGENA on 09/23/14210 Last Action: Reviewed on 08/26/211428 by PEARL FOURNIER Ergocalciferol (Vitamin D2) (Vitamin D2) 50,000 Unit Capsule, 50,000 UNIT PO WEEKLY, (Reported) Dose given on the Take on Entered as Reported by: NARCISA TOURE on 05/29/16 0020 Last Action: Reviewed on 08/26/211428 by PEARL FOURNIER Ferrous Sulfate (Iron) 325 Mg Tablet, 65 MG PO DAILY for anemia, (Reported) Entered as Reported by: MASHA BARAHONA on 05/09/202337 Last Action: Reviewed on 08/26/211428 by PEARL FOURNIER Fexofenadine Hcl (Fexofenadine Hcl) 180 Mg Tablet, 1 TAB PO DAILY for allergies, #30 Ref 5 (Reported) Entered as Reported by: MASHA BARAHONA on 05/09/202337 Last Action: Reviewed on 08/26/211428 by PEARL FOURNIER Finasteride (Finasteride) 5 Mg Tablet, 1 TAB PO QHS for urinary retention, #30 Ref 11 (Reported) Entered as Reported by: PEARL FOURNIER on 08/26/211429 Last Action: New Order on 08/26/211429 by PEARL FOURNIER Fluticasone Propionate (Fluticasone Propionate Nasal [place]) 16 Gm [place].susp, 2 SPRAY NS DAILY for allergies, #1 Ref 11 (Reported) Entered as Reported by: MASHA BARAHONA on 05/09/202337 Last Action: Reviewed on 08/26/211429 by PEARL FOURNIER Furosemide (Lasix) 40 Mg Tablet, 1 TAB PO DAILY for diuretic for 30 Days, #30 Ref 0 (Reported) Entered as Reported by: PEARL FOURNIER on 08/26/211429 Last Action: New Order on 08/26/211429 by PEARL FOURNIER Icosapent Ethyl (Vascepa) 1 Gm Capsule, 1 GM PO DAILY for cholesterol, (Reported) Not given on this admission Take as previoulsy instructed Entered as Reported by: STACY CARTAGENA on 09/23/14210 Last Action: Edited on 08/26/211428 by PEARL FOURNIER Isosorbide Mononitrate (Isosorbide Mononitrate Er) 30 Mg Tab.er.24h, 60 MG PO DAILY, #30 Ref 5 (Reported) Gave this morning take tomorrow morning Entered as Reported by: STACY CARTAGENA on 09/23/14210 Last Action: Reviewed on 08/26/211428 by PEARL FOURNIER Lisinopril (Lisinopril) 20 Mg Tablet, 1 TAB PO DAILY for HTN, #30 Ref 5 (Reported) Entered as Reported by: PEARL FOURNIER on 08/26/211429 Last Action: New Order on 08/26/211429 by PEARL FOURNIER Metformin Hcl (Metformin Hcl) 1,000 Mg Tablet, 1,000 MG PO BIDWMEALS for antidiabetic, (Reported) Entered as Reported by: PEARL FOURNIER on 08/26/211429 Last Action: New Order on 08/26/211429 by PEARL FOURNIER Metoprolol Succinate (Toprol Xl) 50 Mg Tab.er.24h, 1 TAB PO DAILY, #30 Ref 5 (Reported) Gave this morning take tomorrow morning Entered as Reported by: STACY CARTAGENA on 09/23/14210 Last Action: Reviewed on 08/26/211428 by PEARL FOURNIER Multivits-Minerals/Fa/Lycopene (One Daily For Men Tablet) 1 Each Tablet, 1 TAB PO DAILY for supplement for 30 Days, #30 Ref 0 (Reported) Entered as Reported by: MASAH BARAHONA on 05/09/202337 Last Action: Reviewed on 08/26/211428 by PEARL FOURNIER Pantoprazole Sodium (Pantoprazole Sodium ) 40 Mg Tablet.dr, 1 TAB PO DAILY, #30 Ref 3 (Reported) Gave this morning take tomorrow morning Entered as Reported by: NABILA WHYTE on 04/30/162157 Last Action: Reviewed on 08/26/211428 by PEARL FOURNIER Potassium Chloride (Potassium Chloride ) 20 Meq Tablet.er, 20 MEQ PO QEVNG for SUPPLEMENT, (Reported) Entered as Reported by: PEARL FOURNIER on 08/26/211429 Last Action: New Order on 08/26/211429 by PEARL FOURNIER Repaglinide (Repaglinide) 1 Mg Tablet, 1 MG PO [id number] for antidiabetic, (Reported) Not given on this admission Continue as previously instructed Entered as Reported by: STACY CARTAGENA on 09/23/14210 Last Action: Edited on 08/26/211428 by PEARL FOURNIER Tamsulosin Hcl (Flomax) 0.4 Mg Cap.er.24h, 1 CAP PO HS for BPH, #30 Ref 11 (Reported) Entered as Reported by: MASHA BARAHONA on 05/09/202337 Last Action: Reviewed on 08/26/211429 by PEARL FOURNIER Scheduled PRN Hydrocodone Bit/Acetaminophen (Hydrocodone-Apap 5-325 ) 1 Tab Tablet, 1 TAB PO PRN Q6HRS PRN for PAIN for 5 Days, #20 Ref 0 Prescribed by: KATH CABALLERO MD on 05/18/20 0909 Last Action: HELD on 08/25/211951 by TIMA ALFONSO MD Discontinued Medications Linaclotide (Linzess) 145 Mcg Capsule, 145 MCG PO 3X/WEEK for IRRITABLE BOWEL, (Reported) Entered as Reported by: MASHA BARAHONA on 05/09/20 5788 Last Action: Discontinued on 08/26/21 142 by PEARL FOURNIER Tizanidine Hcl (Tizanidine Hcl) 4 Mg Tablet, 1 TAB PO QHS, #30 (Reported) Gave dose last night Take tonight before bedtime Entered as Reported by: SNEHA JENKINS on 05/31/15 0844 Last Action: Discontinued on 08/26/211428 by PEARL FOURNIER Justicifation of Admission Dx: Justifications for Admission: Justification of Admission Dx: Yes CHF: Hemodynamic Instability Angina: Symp at Rest JT GARZON MD Aug 28, 2021 06:16
== END 2021-08-27 22:00 | DRG 871 ==
LOC: ER 15:25 → 1 WEST ICU 18:45
PROVIDERS: ADMIT Student in an Organized Health Care Education/Training Program; ATTEND Student in an Organized Health Care Education/Training Program
PROC: 5A09357 Assistance with Respiratory Ventilation, Less than 24 Consecutive Hours, Continuous Positive Airway Pressure (ICD-10-PCS; principal; 2021-08-25)
PROC: 03HY32Z Insertion of Monitoring Device into Upper Artery, Percutaneous Approach (ICD-10-PCS; 2021-08-26)
PROC: 02HV33Z Insertion of Infusion Device into Superior Vena Cava, Percutaneous Approach (ICD-10-PCS; 2021-08-26)
PROC: B548ZZA Ultrasonography of Superior Vena Cava, Guidance (ICD-10-PCS; 2021-08-26)
DX: A41.59 Other Gram-negative sepsis (principal); J96.21 Acute and chronic respiratory failure with hypoxia; I50.33 Acute on chronic diastolic (congestive) heart failure; J18.9 Pneumonia, unspecified organism; R65.21 Severe sepsis with septic shock; N17.0 Acute kidney failure with tubular necrosis; E87.1 Hypo-osmolality and hyponatremia; I13.0 Hypertensive heart and chronic kidney disease with heart failure and stage 1 through stage 4 chronic kidney disease, or unspecified chronic kidney disease; N30.00 Acute cystitis without hematuria; Z68.43 Body mass index [BMI] 50.0-59.9, adult; C67.9 Malignant neoplasm of bladder, unspecified; D64.9 Anemia, unspecified; E11.22 Type 2 diabetes mellitus with diabetic chronic kidney disease; E11.51 Type 2 diabetes mellitus with diabetic peripheral angiopathy without gangrene; E66.01 Morbid (severe) obesity due to excess calories; E78.00 Pure hypercholesterolemia, unspecified; E78.5 Hyperlipidemia, unspecified; E87.5 Hyperkalemia; G47.33 Obstructive sleep apnea (adult) (pediatric); I46.9 Cardiac arrest, cause unspecified; J45.909 Unspecified asthma, uncomplicated; K21.9 Gastro-esophageal reflux disease without esophagitis; K58.9 Irritable bowel syndrome, unspecified; N18.9 Chronic kidney disease, unspecified; N40.0 Benign prostatic hyperplasia without lower urinary tract symptoms; Z51.5 Encounter for palliative care; Z66 Do not resuscitate; Z79.01 Long term (current) use of anticoagulants; Z79.02 Long term (current) use of antithrombotics/antiplatelets; Z79.82 Long term (current) use of aspirin; Z79.84 Long term (current) use of oral hypoglycemic drugs; Z79.899 Other long term (current) drug therapy; Z82.49 Family history of ischemic heart disease and other diseases of the circulatory system; Z83.3 Family history of diabetes mellitus; Z85.51 Personal history of malignant neoplasm of bladder; Z85.528 Personal history of other malignant neoplasm of kidney; Z86.718 Personal history of other venous thrombosis and embolism; Z93.6 Other artificial openings of urinary tract status; Z95.5 Presence of coronary angioplasty implant and graft; G89.29 Other chronic pain; M19.90 Unspecified osteoarthritis, unspecified site; Z88.8 Allergy status to other drugs, medicaments and biological substances; Z90.49 Acquired absence of other specified parts of digestive tract; I25.2 Old myocardial infarction; I25.10 Atherosclerotic heart disease of native coronary artery without angina pectoris; R07.89 Other chest pain
CPT/HCPCS: 36415; 36569; 36600; 71045; 74176; 80048; 80053; 80061; 81001; 82553; 82805; 83605; 83880; 84484; 85007; 85025; 85610; 87040; 87077; 87086; 87186; 87205; 93005; 94660; 94760; 96365; 96375; J0610; J0696; J1815; J1940; J1956; J2060; J2270; J2543; J3490; J7030; J7060; Q9956; 99291-25; G0378